=== PATIENT | male | born 1960 | race Two or more races ===

== ENCOUNTER → 2020-04-06 12:55 | Outpatient (BNV) | payer OTHER, MEDICAID, SELFPAY | PROVIDERS: PCP Nurse Practitioner Family; Visit Provider Internal Medicine Medical Oncology | DX: C15.5 Malignant neoplasm of lower third of esophagus (principal) | CPT/HCPCS: 99213; 99214 ==

== ENCOUNTER → 2020-04-12 13:00 | Outpatient (BNVA) | payer OTHER, SELFPAY | PROVIDERS: PCP Internal Medicine; Visit Provider Nurse Practitioner Gerontology | DX: E11.65 Type 2 diabetes mellitus with hyperglycemia (principal); E11.42 Type 2 diabetes mellitus with diabetic polyneuropathy; E78.5 Hyperlipidemia, unspecified; Z79.4 Long term (current) use of insulin; Z71.3 Dietary counseling and surveillance | CPT/HCPCS: 82947; 99214 ==

== ENCOUNTER → 2020-04-17 14:22 | Outpatient (BNVA) | payer OTHER, SELFPAY | PROVIDERS: PCP Internal Medicine; Visit Provider Urology | DX: Z76.89 Persons encountering health services in other specified circumstances (principal) | CPT/HCPCS: 99212 ==

== ENCOUNTER 2020-08-27 10:21 | Outpatient (REF) | payer OTHER, SELFPAY ==
[2020-08-27 11:06] LABS: Prothrombin Time 12.1 SEC (10.8-13.0)
[2020-08-27 11:08] LABS: Basophils Percent Auto 0.5 % (0-2); Eosinophils Absolute Auto 0.2 X10*3/uL (0.0-0.4); Eosinophils Percent Auto 4.8 % (0-4); Hematocrit 45.3 % (42-52); Hemoglobin 16.2 g/dl (14.0-18.0); Imm Gran Abs Auto 0.01 X10*3/uL (0.00-0.03); Imm Gran Pct Auto 0.3 % (0.0-0.4); Lymphocytes Absolute Auto 0.5 X10*3/uL (1.2-4.9); Lymphocytes Percent Auto 13.1 % (20-40); MANUAL DIFF FLAG SCAN; Mean Corpuscular HGB Conc 35.8 g/dl (31.0-36.0); Mean Corpuscular Hemoglobin 32.9 pg (27.0-33.0); Mean Corpuscular Volume 92.1 fL (80-98); Mean Platelet Volume 9.8 fL (9.4-12.4); Monocytes Absolute Auto 0.4 X10*3/uL (0.1-1.2); Monocytes Percent Auto 11.8 % (2-11); Neutrophils Absolute Auto 2.6 X10*3/uL (2.0-8.3); Neutrophils Percent Auto 69.5 % (45-73); Red Blood Count 4.92 X10*6/uL (4.60-5.80); Red Cell Distribution Width 14.7 % (11.0-16.0); SCAN SMEAR FLAG 1; White Blood Count 3.7 X10*3/uL (4.8-10.8)
[2020-08-27 11:16] LABS: Platelet Count 60 X10*3/uL (160-400)
[2020-08-27 11:22] LABS: Estimated Average Glucose 169 mg/dL; Hemoglobin A1c % 7.5 %
[2020-08-27 11:41] LABS: Creatinine Urine 37.65 mg/dL; Microalbum/Creatinine Ratio Ur 18.5 ug/mg cr
[2020-08-27 11:44] LABS: Alanine Aminotransferase 24 U/L (0-40); Albumin Level 3.7 g/dL (3.5-5.0); Alkaline Phosphatase 133 U/L (39-117); Aspartate Amino Transferase 33 U/L (5-37); Bilirubin Direct 0.7 mg/dL (0.0-0.5); Bilirubin Total 1.7 mg/dL (0.0-1.0); Total Protein 7.1 g/dL (6.5-8.0)
[2020-08-27 11:51] LABS: SLIDE REVIEW VERIFIED
[2020-08-27 12:12] LABS: Anion Gap 10 (12-20); Blood Urea Nitrogen 13 mg/dL (9-16); Carbon Dioxide 26 mmol/L (22-29); Chloride 109 mmol/L (96-108); Cholesterol 160 mg/dL; Estimated Glomerular Filt Rate > 60; Glucose Fasting 281 mg/dL (60-99); HDL Cholesterol 59 mg/dL; LDL Cholesterol Calculated 81 mg/dl; Potassium 4.3 mmol/L (3.3-5.1); Sodium 141 mmol/L (135-145); Triglycerides 103 mg/dL
[2020-08-28 05:12] LABS: LDL Cholesterol Direct 71 mg/dL (<100)
[2020-08-29 14:11] LABS: HCV Log PCR <1.18 NOT DETECTED Log IU/mL (NOT DETECTED); HepC Viral Load <15 NOT DETECTED IU/mL (NOT DETECTED)
== END 2020-08-27 10:22 | disposition home or self-care (01) ==
LOC: HO.LAB 10:21
PROVIDERS: Absent Provider Internal Medicine Gastroenterology; PCP Nurse Practitioner Family; Visit Provider Nurse Practitioner Gerontology
DX: E11.65 Type 2 diabetes mellitus with hyperglycemia (principal); K74.69 Other cirrhosis of liver
CPT/HCPCS: 36415; 80048; 80061; 80076; 82043; 83036; 83721; 85025; 85610; 87522

== ENCOUNTER 2020-09-04 09:18 | Outpatient (REF) | payer OTHER, SELFPAY ==
--- NOTE | ~2020-09-04 | US_ITS ---
EXAMINATION: US ABDOMEN COMPLETE CLINICAL INFORMATION: Cirrhosis of liver. COMPARISON: CT abdomen 11/25/2019. Ultrasound abdomen 04/12/2018 and 05/13/2017. TECHNIQUE: Real-time imaging of the abdominal viscera. FINDINGS: PANCREAS: Not well visualized due to bowel gas. ABDOMINAL AORTA: The proximal, mid, and distal segments are normal in caliber. INFERIOR VENA CAVA: Visualized portions are normal. LIVER: Liver echotexture is increased and heterogeneous suggestive of hepatocellular disease. The contour of the liver is irregular suggestive of cirrhosis. The left lobe of the liver is difficult to visualize. No focal liver lesion or biliary duct dilatation is seen. Tips shunt is seen in the right lobe of the liver. GALLBLADDER: Normal. The gallbladder is physiologically distended without evidence of stones, sludge, polyps, wall thickening or pericholecystic fluid. COMMON BILE DUCT: Not well visualized RIGHT KIDNEY: Normal. No hydronephrosis. No renal calculi or focal parenchymal lesions. The kidney measures 11.4 cm in maximum dimension. LEFT KIDNEY: Normal. No hydronephrosis. No renal calculi or focal parenchymal lesions. The kidney measures 12.1 cm in maximum dimension. SPLEEN: The spleen is enlarged. The spleen measures 15.8 cm in maximum dimension. FREE FLUID: None. US/US abdomen complete IMPRESSION: Cirrhotic-appearing liver. No focal liver lesion seen. The left lobe of the liver is difficult to visualize. Splenomegaly. Nonvisualization of the pancreas and common bile duct.
== END 2020-09-04 09:19 | disposition home or self-care (01) ==
LOC: HO.US 09:18
PROVIDERS: PCP Nurse Practitioner Family; Visit Provider Internal Medicine Gastroenterology
DX: K74.69 Other cirrhosis of liver (principal)
CPT/HCPCS: 76700

== ENCOUNTER 2020-09-25 07:06 | Day surgery (SDC) | payer OTHER, SELFPAY ==
[2020-09-19 09:40] VITALS: BMI 30.7
--- NOTE | 2020-09-24 08:30 | HO.ANESPROP2 ---
Documented by User: Lauryn Wing 09/24/20 08:38 HPI - Anesthesia Eval Consult details Narrative: 59yo M for Upper Endoscopy ETOH cirrhosis - h/o ascites, varices, splenomegaly s/p TIPS 2019 PENDING SALE TO [facility] Active Problems Active Problems: All Active Problems (Updated 09/19/20 @ 09:39 by Darleen Robbins) Adenocarcinoma of lower esophagus (Acute) Phimosis (Acute) Erectile dysfunction associated with vasculopathy (Acute) Screening PSA (prostate specific antigen) (Acute) Seizures (Acute) Type 2 diabetes mellitus with hyperglycemia (Acute) Type 2 diabetes mellitus with diabetic polyneuropathy (Acute) Hyperlipidemia LDL goal <70 (Acute) Past Medical History Medical History Adenocarcinoma of lower esophagus Alcoholic cirrhosis Anemia Constipation Diabetes Elevated ferritin Esophageal varices Esophagus, carcinoma Hepatic cirrhosis Hepatitis C Hx of splenomegaly Hyperlipidemia LDL goal <70 Male circumcision Seizure disorder Stroke Thrombocytopenia Type 2 diabetes mellitus with diabetic polyneuropathy Type 2 diabetes mellitus with hyperglycemia Family History Family History Father No problems noted. Mother Diabetes mellitus Surgical History Surgical History Hx of circumcision Hx of colonoscopy Hx of endoscopy Social History Social History Household Members: Spouse Alcohol intake: never Smoking Status: Former smoker Use of substances other than those prescribed or required for medical reasons: No Advance Directives: No Advance Directives Information Provided: Yes Meds Allergies Allergy/AdvReac Type Severity Reaction Status Date / Time No Known Allergies Allergy Verified 09/25/20 07:59 Home Medications Medication Instructions Recorded Confirmed Last Taken Type cholecalciferol (vitamin D3) 25 mcg PO DAILY 04/06/20 09/19/20 Unknown History [Vitamin D3] docusate sodium 1 cap PO DAILY 04/06/20 09/19/20 Unknown History lactulose 15 ml PO TID 04/06/20 09/19/20 Unknown History lancets 33 gauge #100 ea 08/15/20 08/15/20 Unknown History pen needle, diabetic 31 gauge x #1200 ea 08/15/20 08/15/20 Unknown History 11/04 Exam Exam Date and Time: September 24, 2020 0830 Height,Weight and Vital Signs: Height 5 ft 7 in Weight 89 kg Pertinent Lab Results Pertinent Lab Results: Laboratory Tests 08/27/20 08/27/20 08/27/20 10:32 10:32 10:32 WBC 3.7 L Hgb 16.2 Hct 45.3 Plt Count 60 L D PT INR Sodium 141 Potassium 4.3 Chloride 109 H Carbon Dioxide 26 BUN 13 Creatinine 0.96 Hemoglobin A1c % 7.5 Total Bilirubin Direct Bilirubin AST ALT Alkaline Phosphatase Total Protein Albumin 08/27/20 08/27/20 10:32 10:32 WBC Hgb Hct Plt Count PT 12.1 INR 1.0 Sodium Potassium Chloride Carbon Dioxide BUN Creatinine Hemoglobin A1c % Total Bilirubin 1.7 H Direct Bilirubin 0.7 H AST 33 ALT 24 Alkaline Phosphatase 133 H Total Protein 7.1 Albumin 3.7 Narrative Narrative: US abdomen complete 08/2020 IMPRESSION: Cirrhotic-appearing liver. No focal liver lesion seen. The left lobe of the liver is difficult to visualize. Splenomegaly. Nonvisualization of the pancreas and common bile duct. Assessment and Plan Assessment Anesthesia Assessment: Chart Reviewed Documented by User: Zully Zaidi 09/25/20 08:59 PMFSH Past Medical History Medical History Adenocarcinoma of lower esophagus Alcoholic cirrhosis Anemia Constipation Diabetes Elevated ferritin Esophageal varices Esophagus, carcinoma Hepatic cirrhosis Hepatitis C Hx of splenomegaly Hyperlipidemia LDL goal <70 Male circumcision Seizure disorder Stroke Thrombocytopenia Type 2 diabetes mellitus with diabetic polyneuropathy Type 2 diabetes mellitus with hyperglycemia Family History Family History Father No problems noted. Mother Diabetes mellitus Surgical History Surgical History Hx of circumcision Hx of colonoscopy Hx of endoscopy Social History Social History Household Members: Spouse Alcohol intake: never Smoking Status: Former smoker Use of substances other than those prescribed or required for medical reasons: No Advance Directives: No Advance Directives Information Provided: Yes Meds Allergies Allergy/AdvReac Type Severity Reaction Status Date / Time No Known Allergies Allergy Verified 09/25/20 07:59 Home Medications Medication Instructions Recorded Confirmed Last Taken Type cholecalciferol (vitamin D3) 25 mcg PO DAILY 04/06/20 09/19/20 Unknown History [Vitamin D3] docusate sodium 1 cap PO DAILY 04/06/20 09/19/20 Unknown History lactulose 15 ml PO TID 04/06/20 09/19/20 Unknown History lancets 33 gauge #100 ea 08/15/20 08/15/20 Unknown History pen needle, diabetic 31 gauge x #1200 ea 08/15/20 08/15/20 Unknown History 11/04 Exam Airway Mallampati Class: II TM Dist: >3cm Neck ROM: Full Loose/Missing/Broken Teeth: No Heart: RRR Lungs: CTA Assessment and Plan Assessment Anesthesia Assessment: Anesthesia Plan Discussed and Chart Reviewed Final Anesthetic Review NPO: Yes ASA Class: III Final Preanesthetic Review: Meds/Allgs Chart Reviewed, Consent Obtained/Reviewed and Anes Risks/Benef Reviewed Patient Risk: Intermediate Procedure Risk: Intermediate Anesthetic Plan Anesthetic Plan: MAC: Disposition: Standard PACU
[2020-09-25 07:48] LABS: Glucose, Whole Blood 155 mg/dL (60-115)
[2020-09-25 08:02] VITALS: BP 118/79; PULSE 74; RESP 16; TEMP 36.5; O2SAT 99
[2020-09-25] MEDS: Lactated Ringers 1,000 ML 50 ML IV (08:21)
--- NOTE | 2020-09-25 08:57 | MHC.SHP ---
Pre-Procedural Eval Section A The patient is an INPATIENT: No Changes since office visit: No Cold of Flu in the past 2 weeks, No New Medical Problems, No Changes in Medication and No Patient answered all questions The History & Physical has been completed within 30 days and I have reviewed it.: Yes Section B Chief Complaint: malignant neoplasm of esophagus Allergies: Allergies Allergy/AdvReac Type Severity Reaction Status Date / Time No Known Allergies Allergy Verified 09/25/20 07:59 Plan I have reviewed the history and physical and performed a pertinent physical examination on my patient. No changes have occurred unless specified.
--- NOTE | 2020-09-25 09:23 | PM.OP ---
Brief Operative Note Date of Service: 09/25/20 Pre-op diagnosis: adenoca esophagus Post-op diagnosis: same Procedure: egd Surgeon: Benjamin Suggs Anesthesia: MAC Estimated blood loss (mL): 20 Pathology: other (egj biopsies, gastric polyps) Condition: stable Disposition: PACU
[2020-09-25 09:30] VITALS: BP 105/66; PULSE 77; RESP 18; TEMP 36.1; O2SAT 94
[2020-09-25 09:45] VITALS: BP 104/69; PULSE 76; RESP 18; TEMP 36.4; O2SAT 95
--- NOTE | 2020-09-25 10:40 | OP_ITS ---
SURGEON: Benjamin Suggs MD INDICATIONS: Adenocarcinoma of the EG junction. PREOPERATIVE DIAGNOSIS: POSTOPERATIVE DIAGNOSIS: PROCEDURE PERFORMED: Upper endoscopy with biopsy. ESTIMATED BLOOD LOSS: COMPLICATIONS: ANESTHESIA: ASSISTANTS: SPECIMENS: MEDICATIONS: Monitored anesthesia care. DESCRIPTION OF PROCEDURE: History and physical performed. The risks and benefits of the procedure were explained to the patient. Informed consent was obtained. The patient was placed in left lateral decubitus position. The Olympus video gastroscope was introduced into the esophagus, stomach, and duodenum. Examination was performed and the scope was removed. He tolerated the procedure well and was taken to recovery area in stable condition. FINDINGS: Esophagus: The esophagus showed changes consistent with his prior radiation therapy. There was a nodular area just below the EG junction with some inflammatory change. This was biopsied. There were no visible esophageal varices or gastric varices. Stomach: The stomach showed no evidence of masses or ulcers. The previously identified gastric polyps were present. They appeared unchanged from his prior examination. Biopsies were obtained from the gastric polyps. Duodenum: The bulb and second portion were normal. IMPRESSION: 1. Adenocarcinoma of the EG junction, status post biopsy. 2. Gastric polyps. RECOMMENDATION: Follow up the biopsy results. MD GUY Tejada/JUAN CARLOS / [id number]
== END 2020-09-25 10:10 | disposition home or self-care (01) ==
PROVIDERS: PCP Nurse Practitioner Family; Visit Provider Internal Medicine Gastroenterology
PROC: 0DJ08ZZ Inspection of Upper Intestinal Tract, Via Natural or Artificial Opening Endoscopic (ICD-10-PCS; CPT 43235; principal; 2020-09-25 08:20)
DX: C16.0 Malignant neoplasm of cardia (principal); K31.7 Polyp of stomach and duodenum; Z92.21 Personal history of antineoplastic chemotherapy; Z92.3 Personal history of irradiation; Z87.891 Personal history of nicotine dependence; B19.20 Unspecified viral hepatitis C without hepatic coma; K74.69 Other cirrhosis of liver; G40.802 Other epilepsy, not intractable, without status epilepticus; E11.42 Type 2 diabetes mellitus with diabetic polyneuropathy; E11.65 Type 2 diabetes mellitus with hyperglycemia; Z79.4 Long term (current) use of insulin; Z79.899 Other long term (current) drug therapy; Z86.73 Personal history of transient ischemic attack (TIA), and cerebral infarction without residual deficits
CPT/HCPCS: 43239; 82947; 88305; 88341; 88342

== ENCOUNTER → 2020-10-22 12:53 | Outpatient (BNVA) | payer OTHER, SELFPAY | PROVIDERS: PCP Nurse Practitioner Family; Visit Provider Nurse Practitioner Gerontology | DX: E11.65 Type 2 diabetes mellitus with hyperglycemia (principal); E11.42 Type 2 diabetes mellitus with diabetic polyneuropathy; E78.5 Hyperlipidemia, unspecified; Z68.29 Body mass index [BMI] 29.0-29.9, adult; Z79.4 Long term (current) use of insulin; Z71.3 Dietary counseling and surveillance | CPT/HCPCS: 82947; 99212 ==

== ENCOUNTER → 2021-01-21 11:19 | Outpatient (BNVA) | payer OTHER, SELFPAY | PROVIDERS: PCP Nurse Practitioner Family; Visit Provider Nurse Practitioner Gerontology | DX: E11.65 Type 2 diabetes mellitus with hyperglycemia (principal); E11.42 Type 2 diabetes mellitus with diabetic polyneuropathy; E78.5 Hyperlipidemia, unspecified; I73.9 Peripheral vascular disease, unspecified; Z87.891 Personal history of nicotine dependence; Z86.73 Personal history of transient ischemic attack (TIA), and cerebral infarction without residual deficits; Z79.4 Long term (current) use of insulin; Z79.899 Other long term (current) drug therapy | CPT/HCPCS: 82947; 99212 ==

== ENCOUNTER 2021-02-06 16:16 | Outpatient (REF) | payer OTHER, SELFPAY ==
--- NOTE | ~2021-02-06 | XR_ITS ---
EXAMINATION: XR KNEE, LEFT CLINICAL INFORMATION: Pain COMPARISON: None TECHNIQUE: Four views of the left knee. FINDINGS: No acute fracture or dislocation. Mild degenerative changes. No significant effusion is seen. XR/XR knee LT 4V IMPRESSION: No acute finding.
== END 2021-02-06 16:17 | disposition home or self-care (01) ==
LOC: HO.HMGCX 16:16
PROVIDERS: PCP Nurse Practitioner Family; Visit Provider Nurse Practitioner Family
DX: M25.562 Pain in left knee (principal)
CPT/HCPCS: 73564

== ENCOUNTER 2021-02-08 09:59 | Outpatient (REF) | payer OTHER, SELFPAY ==
[2021-02-08 10:48] LABS: MANUAL DIFF FLAG NO
[2021-02-08 10:54] LABS: Basophils Percent Auto 1.1 % (0-2); Eosinophils Absolute Auto 0.2 X10*3/uL (0.0-0.4); Eosinophils Percent Auto 3.9 % (0-4); Hematocrit 42.1 % (42-52); Hemoglobin 14.9 g/dl (14.0-18.0); Imm Gran Abs Auto 0.01 X10*3/uL (0.00-0.03); Imm Gran Pct Auto 0.3 % (0.0-0.4); Lymphocytes Absolute Auto 0.8 X10*3/uL (1.2-4.9); Lymphocytes Percent Auto 20.3 % (20-40); Mean Corpuscular HGB Conc 35.4 g/dl (31.0-36.0); Mean Corpuscular Hemoglobin 32.3 pg (27.0-33.0); Mean Corpuscular Volume 91.3 fL (80-98); Mean Platelet Volume 10.4 fL (9.4-12.4); Monocytes Absolute Auto 0.3 X10*3/uL (0.1-1.2); Monocytes Percent Auto 8.7 % (2-11); Neutrophils Absolute Auto 2.5 X10*3/uL (2.0-8.3); Neutrophils Percent Auto 65.7 % (45-73); Red Blood Count 4.61 X10*6/uL (4.60-5.80); Red Cell Distribution Width 15.2 % (11.0-16.0); White Blood Count 3.8 X10*3/uL (4.8-10.8)
[2021-02-08 10:55] LABS: Platelet Count 56 X10*3/uL (160-400)
== END 2021-02-08 10:00 | disposition home or self-care (01) ==
LOC: HO.LAB 09:59
PROVIDERS: PCP Nurse Practitioner Family; Visit Provider Internal Medicine Gastroenterology
DX: K74.60 Unspecified cirrhosis of liver (principal)
CPT/HCPCS: 36415; 85025

== ENCOUNTER 2021-02-12 09:51 | Day surgery (SDC) | payer OTHER, SELFPAY ==
--- NOTE | 2021-02-11 09:33 | P.CONAN_ITS ---
Documented by User: Lauryn Wing NP 02/11/21 09:36 HPI - Anesthesia Eval Consult details Narrative: 60yo M for Upper Endoscopy Last EGD with MAC 09/2020 PLT=56 on 02/08/21 ETOH cirrhosis - h/o ascites, varices, splenomegaly s/p TIPS 2019 PMFSH Active Problems Active Problems: All Active Problems (Updated 02/06/21 @ 17:06 by Nikhil Gray, [facility]) HTN (hypertension) (Acute) Left knee pain (Acute) Adenocarcinoma of lower esophagus (Acute) Phimosis (Acute) Erectile dysfunction associated with vasculopathy (Acute) Screening PSA (prostate specific antigen) (Acute) Seizures (Acute) Type 2 diabetes mellitus with hyperglycemia (Acute) Type 2 diabetes mellitus with diabetic polyneuropathy (Acute) Hyperlipidemia LDL goal <70 (Acute) Past Medical History Medical History (Updated 02/12/21 @ 10:47 by Annika Guevara MD) Adenocarcinoma of lower esophagus Alcoholic cirrhosis Anemia Constipation Diabetes Elevated ferritin Esophageal varices Esophagus, carcinoma Hepatic cirrhosis Hepatitis C Hx of splenomegaly Hyperlipidemia LDL goal <70 Male circumcision Seizure disorder Stroke Thrombocytopenia Type 2 diabetes mellitus with diabetic polyneuropathy Type 2 diabetes mellitus with hyperglycemia Family History Family History Father No problems noted. Mother Diabetes mellitus Surgical History Surgical History Hx of circumcision Hx of colonoscopy Hx of endoscopy Social History Social History Household Members: Spouse Household Members Other:: Spouse: Antoni Alcohol intake: never Patient Tobacco Use Status: Former Tobacco user Quit Date: 1979 Tobacco use type: Cigarette Years Smoked: 10 Smoked in Last 30 Days: No e-Cigarette/Vaping Use: Never Used Second Hand Smoke Exposure: No Use of substances other than those prescribed or required for medical reasons: No Are you DNR?: No Advance Directives: No Advance Directives Information Provided: Yes service: No Current occupational status: disabled Meds Allergies Allergy/AdvReac Type Severity Reaction Status Date / Time No Known Allergies Allergy Verified 02/12/21 10:09 Home Medications Medication Instructions Recorded Confirmed Last Taken Type cholecalciferol (vitamin D3) 25 25 mcg PO DAILY 04/06/20 02/06/21 Unknown History mcg (1,000 unit) tablet (Vitamin D3) docusate sodium 100 mg capsule 1 cap PO DAILY 04/06/20 02/06/21 Unknown History lactulose 10 gram/15 mL oral 15 ml PO TID 04/06/20 02/06/21 Unknown History solution lancets 33 gauge #100 ea 08/15/20 01/21/21 Unknown History pen needle, diabetic 31 gauge x #1200 ea 08/15/20 01/21/21 Unknown History 11/04 Exam Exam Date and Time: February 11, [id number] Pertinent Lab Results Pertinent Lab Results: Laboratory Tests 01/07/21 02/08/21 15:29 10:17 WBC 3.8 L Hgb 14.9 Hct 42.1 Plt Count 56 L Sodium 140 Potassium 4.2 Chloride 108 Carbon Dioxide 24 BUN 14 Creatinine 1.04 Assessment and Plan Assessment Anesthesia Assessment: Chart Reviewed Documented by User: Annika Guevara MD 02/12/21 10:48 PMFSH Past Medical History Medical History (Updated 02/12/21 @ 10:47 by Annika Guevara MD) Adenocarcinoma of lower esophagus Alcoholic cirrhosis Anemia Constipation Diabetes Elevated ferritin Esophageal varices Esophagus, carcinoma Hepatic cirrhosis Hepatitis C Hx of splenomegaly Hyperlipidemia LDL goal <70 Male circumcision Seizure disorder Stroke Thrombocytopenia Type 2 diabetes mellitus with diabetic polyneuropathy Type 2 diabetes mellitus with hyperglycemia Family History Family History Father No problems noted. Mother Diabetes mellitus Family history of problems with anesthesia: No Surgical History Surgical History Hx of circumcision Hx of colonoscopy Hx of endoscopy History of Problems with Anesthesia: No Social History Social History Household Members: Spouse Household Members Other:: Spouse: Antoni Alcohol intake: never Patient Tobacco Use Status: Former Tobacco user Quit Date: 1979 Tobacco use type: Cigarette Years Smoked: 10 Smoked in Last 30 Days: No e-Cigarette/Vaping Use: Never Used Second Hand Smoke Exposure: No Use of substances other than those prescribed or required for medical reasons: No Are you DNR?: No Advance Directives: No Advance Directives Information Provided: Yes service: No Current occupational status: disabled Meds Allergies Allergy/AdvReac Type Severity Reaction Status Date / Time No Known Allergies Allergy Verified 02/12/21 10:09 Home Medications Medication Instructions Recorded Confirmed Last Taken Type cholecalciferol (vitamin D3) 25 25 mcg PO DAILY 04/06/20 02/06/21 Unknown History mcg (1,000 unit) tablet (Vitamin D3) docusate sodium 100 mg capsule 1 cap PO DAILY 04/06/20 02/06/21 Unknown History lactulose 10 gram/15 mL oral 15 ml PO TID 04/06/20 02/06/21 Unknown History solution lancets 33 gauge #100 ea 08/15/20 01/21/21 Unknown History pen needle, diabetic 31 gauge x #1200 ea 08/15/20 01/21/21 Unknown History 11/04 Exam Height,Weight and Vital Signs: Height 5 ft 7 in Weight 87.09 kg Vital Signs Temp Pulse Resp BP Pulse Ox 02/12/21 10:15 98.2 F 71 16 133/78 98 Pertinent Lab Results Pertinent Lab Results: Laboratory Tests 01/07/21 02/08/21 15:29 10:17 WBC 3.8 L Hgb 14.9 Hct 42.1 Plt Count 56 L Sodium 140 Potassium 4.2 Chloride 108 Carbon Dioxide 24 BUN 14 Creatinine 1.04 Lab Results 02/12/21 Range/Units 10:21 POC Glucose 172 H (60-115) mg/dL Airway Mallampati Class: II TM Dist: >3cm Neck ROM: Full Loose/Missing/Broken Teeth: Yes (Some extractions- front left, side) Heart: RRR Lungs: CTAB Assessment and Plan Final Anesthetic Review Family History of Problems with Anesthesia: No History of Problems with Anesthesia: No NPO: Yes ASA Class: III Final Preanesthetic Review: No Changes in Pt Med Stat, Meds/Allgs Chart Reviewed, Consent Obtained/Reviewed and Anes Risks/Benef Reviewed Patient Risk: Intermediate Procedure Risk: Low Assessment/Block/Sedation in SS: Assess/Block/Sedation-SS Anesthetic Plan Anesthetic Plan: MAC: Disposition: Standard PACU
[2021-02-12 10:15] VITALS: BP 133/78; PULSE 71; RESP 16; TEMP 36.8; O2SAT 98
[2021-02-12 10:25] LABS: Glucose, Whole Blood 172 mg/dL (60-115)
[2021-02-12] MEDS: Lactated Ringers 1,000 ML 100 ML IVCONT (10:30)
--- NOTE | 2021-02-12 11:23 | MHC.SHP ---
Pre-Procedural Eval Section A Date of Service: 02/12/21 The patient is an INPATIENT: No Changes since office visit: No Cold of Flu in the past 2 weeks, No New Medical Problems, No Changes in Medication and No Patient answered all questions The History & Physical has been completed within 30 days and I have reviewed it.: Yes Section B Chief Complaint: Esophageal Cancer Allergies: Allergies Allergy/AdvReac Type Severity Reaction Status Date / Time No Known Allergies Allergy Verified 02/12/21 10:09 Plan I have reviewed the history and physical and performed a pertinent physical examination on my patient. No changes have occurred unless specified.
[2021-02-12 11:52] VITALS: BP 103/66; PULSE 78; RESP 16; TEMP 36.1; O2SAT 95
--- NOTE | 2021-02-12 11:55 | P.BOP_ITS ---
Brief Operative Note Date of Service: 02/12/21 Pre-op diagnosis: adenoca eg junction Post-op diagnosis: same Procedure: EGD Surgeon: Benjamin Suggs Anesthesia: MAC Was an [employer] Principal used for this Procedure?: No Estimated blood loss (mL): 0 Pathology: none sent Condition: stable Disposition: PACU
[2021-02-12 12:07] VITALS: BP 110/74; PULSE 78; RESP 18; TEMP 36.2; O2SAT 97
--- NOTE | 2021-02-12 18:40 | OP_ITS ---
SURGEON: Benjamin Suggs MD INDICATIONS: History of adenocarcinoma of the EG junction. PREOPERATIVE DIAGNOSIS: POSTOPERATIVE DIAGNOSIS: PROCEDURE PERFORMED: Upper endoscopy. ESTIMATED BLOOD LOSS: COMPLICATIONS: ANESTHESIA: ASSISTANTS: SPECIMENS: MEDICATIONS: Monitored anesthesia care. DESCRIPTION OF PROCEDURE: History and physical performed. The risks and benefits of the procedure were explained to the patient. Informed consent was obtained. The patient was placed in a left lateral decubitus position. The Olympus video gastroscope was introduced into the esophagus, stomach, and duodenum. Examination was performed and the scope was removed. He tolerated the procedure well and was returned to recovery area in stable condition. FINDINGS: Esophagus: The esophagus showed radiation changes over the distal 2/3 consistent with the patient's prior history of esophageal radiation. There was no evidence of recurrent tumor. The EG junction was slightly irregular. No varices were definitely identified. No biopsies were obtained due to the patient's prior history of varices, absence of any obvious tumor, and history of thrombocytopenia. Stomach: The stomach showed previously noted gastric polyps, which had been biopsied. There was no portal hypertensive gastropathy and no definite gastric varices identified. Duodenum: The bulb and second portion were normal. IMPRESSION: No evidence of recurrent adenocarcinoma at the EG junction. RECOMMENDATION: Followup endoscopy to be considered in approximately 6 months. MD GUY Tejada/TOYINL / [id number]
== END 2021-02-12 12:33 | disposition home or self-care (01) ==
PROVIDERS: PCP Nurse Practitioner Family; Visit Provider Internal Medicine Gastroenterology
PROC: 0DJ08ZZ Inspection of Upper Intestinal Tract, Via Natural or Artificial Opening Endoscopic (ICD-10-PCS; CPT 43235; principal; 2021-02-12 11:20)
DX: C15.9 Malignant neoplasm of esophagus, unspecified (principal); Z92.3 Personal history of irradiation; Z98.890 Other specified postprocedural states; Z85.01 Personal history of malignant neoplasm of esophagus; K31.7 Polyp of stomach and duodenum; K74.60 Unspecified cirrhosis of liver; E11.9 Type 2 diabetes mellitus without complications; D69.6 Thrombocytopenia, unspecified; Z87.19 Personal history of other diseases of the digestive system; Z95.828 Presence of other vascular implants and grafts; Z86.73 Personal history of transient ischemic attack (TIA), and cerebral infarction without residual deficits; Z87.891 Personal history of nicotine dependence; Z79.4 Long term (current) use of insulin; Z79.899 Other long term (current) drug therapy
CPT/HCPCS: 43235; 82947; J3010

== ENCOUNTER 2021-02-14 08:07 | Outpatient (REF) | payer OTHER, SELFPAY ==
--- NOTE | ~2021-02-14 | US_ITS ---
EXAMINATION: US ABDOMEN COMPLETE CLINICAL INFORMATION: Cirrhosis, status post TIPS. COMPARISON: Ultrasound abdomen complete 09/04/2020 and 04/12/2018. CT abdomen 11/25/2019. TECHNIQUE: Real-time imaging of the abdominal viscera. FINDINGS: PANCREAS: Obscured by overlying bowel gas. ABDOMINAL AORTA: The proximal, mid, and distal segments are normal in caliber. INFERIOR VENA CAVA: Visualized portions are normal. LIVER: The liver is normal in size. The liver contour is normal. There is mildly increased echogenicity present consistent with fatty infiltration. No focal hepatic lesion. There is no intrahepatic biliary duct dilatation seen. TIPS is seen in place and appears patent. GALLBLADDER: Normal. The gallbladder is physiologically distended without evidence of stones, sludge, polyps, wall thickening or pericholecystic fluid. COMMON BILE DUCT: Normal in caliber measuring 0.2 cm in diameter. RIGHT KIDNEY: Normal. No hydronephrosis. No renal calculi or focal parenchymal lesions. The kidney measures 11.3 cm in maximum dimension. LEFT KIDNEY: Normal. No hydronephrosis. No renal calculi or focal parenchymal lesions. The kidney measures 12.2 cm in maximum dimension. SPLEEN: Splenomegaly is present. The spleen measures 16.3 cm in maximum dimension. FREE FLUID: None. US/US abdomen complete IMPRESSION: Fatty infiltration of the liver. Patent TIPS. Splenomegaly.
== END 2021-02-14 08:08 | disposition home or self-care (01) ==
LOC: HO.US 08:07
PROVIDERS: PCP Nurse Practitioner Family; Visit Provider Internal Medicine Gastroenterology
DX: Z95.828 Presence of other vascular implants and grafts (principal)
CPT/HCPCS: 76700

== ENCOUNTER → 2021-06-07 12:11 | Outpatient (BNVA) | payer OTHER, SELFPAY | PROVIDERS: PCP Nurse Practitioner Family; Visit Provider Nurse Practitioner Gerontology | DX: E11.65 Type 2 diabetes mellitus with hyperglycemia (principal); E11.42 Type 2 diabetes mellitus with diabetic polyneuropathy; E78.5 Hyperlipidemia, unspecified | CPT/HCPCS: 82947; 83036; 99212 ==

== ENCOUNTER → 2021-06-25 14:47 | Outpatient (BNVA) | payer OTHER, SELFPAY | PROVIDERS: PCP Nurse Practitioner Family; Visit Provider Urology | DX: E11.69 Type 2 diabetes mellitus with other specified complication (principal); N52.1 Erectile dysfunction due to diseases classified elsewhere; Z13.9 Encounter for screening, unspecified | CPT/HCPCS: 81002; 99212 ==

== ENCOUNTER → 2021-08-09 09:12 | Outpatient (REF) | payer OTHER, SELFPAY ==
--- NOTE | 2021-08-09 09:15 | CA_ITS ---
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 The visually estimated ejection fraction is between 60-65%. Diastolic function is normal for age. Right Ventricle Normal right ventricular cavity size and systolic function. Atria Both atria are normal in size. There is no evidence of interatrial shunt. Aortic Valve There is mild thickening of the aortic valve. There is no aortic valve stenosis. There is no aortic valve regurgitation. Mitral Valve Normal mitral valve structure and function. There is trace mitral valve regurgitation. There is no mitral valve stenosis. Pulmonic Valve The pulmonic valve is likely normal. Tricuspid Valve Normal tricuspid valve structure. There is trace tricuspid valve regurgitation. Tricuspid regurgitation envelope is inadequate for calculation of right ventricular systolic pressure. Great Vessels All visible segments of the aorta are normal in size. The pulmonary artery was not well visualized. Venous The inferior vena cava is normal in size and collapses greater than 50% with inspiration. Pericardium/Pleural There is no evidence of pericardial effusion. Prior Study Comparison No prior study available for comparison. Measurements 2D Linear Measurements IVSd: 0.74 0.6-0.9/0.6-1.0 cm LVIDd: 4.74 3.9-5.3/4.2-5.9 cm LVIDd Index: 2.39 2.4-3.2/2.2-3.1 cm/m2 LVIDs: 2.99 2.0-3.6 cm LVPWd: 0.79 0.7-1.1 cm Ao Root: 3.00 2.1-3.5 cm LA Diam: 4.00 2.7-3.8/3.0-4.0 cm LAIDs Index: 2.02 1.5-2.3 cm/m2 LV Mass: 145.10 67-162/88-224 g LV Mass Index: 73.29 43-95/49-115 g/m2 LVOT Diam: 2.00 3.0+(-)1.3 cm Mitral Valve MV Pk E: 0.84 MV PK A: 0.64 MV Decel Time: 211.00 E/A: 1.30 E'Lateral: 10.20 E'Medial: 7.83 E/E' Med: 10.70 E/E' Lat: 8.20 PHT: 62.00 MVA PHT: 3.55 Decel [place]: 3.98 Aortic Valve AoV Pk Ron: 1.54 AoV Mn Ron: 1.02 AoV VTI: 0.30 AoV Pk Grad: 9.00 Aov Mn Grad: 5.00 MATT Cont.VTI: 2.20 LVOT LVOT Pk Orn: 0.95 LVOT Mn Ron: 0.60 LVOT VTI: 0.21 LVOT Pk Grad: 4.00 LVOT Mn Grad: 2.00 LVOT Diam: 2.00 LVOT Area: 3.14 Diastolic Function MV Pk E: 0.84 MV Pk A: 0.64 E/A: 1.30 E'Medial: 7.83 E/E' Med: 10.70 E' Laterial: 10.20 E/E' Lat: 8.20 Great Vessels Aorta Ao Root-2D: 3.00 2.0-3.7 cm Ao Asc: 2.90 2.1-3.4 cm Pulmonary Valve PV Pk Ron: 1.61 Peak PV Grad: 10.00 Updated in Other Vendor System with Status of Final Leonard Malik MD electronically signed on 08/10/2021 12:12:37 PM with status of Final
== END ==
LOC: HO.CARD 09:12
PROVIDERS: PCP Nurse Practitioner Family; Visit Provider Nurse Practitioner Family
DX: R01.1 Cardiac murmur, unspecified (principal)
CPT/HCPCS: 93306

== ENCOUNTER 2021-09-10 08:23 | Outpatient (REF) | payer OTHER, SELFPAY ==
--- NOTE | ~2021-09-10 | US_ITS ---
EXAMINATION: US ABDOMEN COMPLETE CLINICAL INFORMATION: Cirrhosis of liver. COMPARISON: Ultrasound abdomen complete 02/14/2021 and 09/04/2020. CT chest and abdomen with contrast 11/25/2019. TECHNIQUE: Real-time imaging of the abdominal viscera. FINDINGS: PANCREAS: Not well visualized due to bowel gas ABDOMINAL AORTA: The midabdominal aorta is not well visualized due to bowel gas. The proximal and distal abdominal aorta are normal in caliber. INFERIOR VENA CAVA: Visualized portions are normal. LIVER: Liver echotexture is very heterogeneous. The contour of the liver is irregular or scalloped suggestive of cirrhosis. No focal liver lesion is seen. There is a TIPS shunt seen that is patent with appropriate hepatopedal flow. No focal liver lesion or biliary duct dilatation. GALLBLADDER: The gallbladder is normal in size. The gallbladder wall is minimally thickened measuring up to 4 mm. This may be related to liver disease. No gallstones are seen. COMMON BILE DUCT: Normal in caliber measuring 0.2 cm in diameter. RIGHT KIDNEY: Normal. No hydronephrosis. No renal calculi or focal parenchymal lesions. The kidney measures 12.0 cm in maximum dimension. LEFT KIDNEY: Normal. No hydronephrosis. No renal calculi or focal parenchymal lesions. The kidney measures 11.7 cm in maximum dimension. SPLEEN: The spleen is enlarged. The spleen measures 17.2 cm in maximum dimension. FREE FLUID: None. US/US abdomen complete IMPRESSION: Cirrhotic-appearing liver. Patent TIPS shunt with appropriate hepatopedal flow. Splenomegaly. No ascites.
[2021-09-10 11:33] LABS: MANUAL DIFF FLAG NO
[2021-09-10 11:39] LABS: Basophils Percent Auto 0.8 % (0-2); Eosinophils Absolute Auto 0.1 X10*3/uL (0.0-0.4); Eosinophils Percent Auto 2.9 % (0-4); Hematocrit 36.5 % (42.0-52.0); Hemoglobin 10.1 g/dl (14.0-18.0); Imm Gran Abs Auto 0.01 X10*3/uL (0.00-0.03); Imm Gran Pct Auto 0.3 % (0.0-0.4); Lymphocytes Absolute Auto 0.7 X10*3/uL (1.2-4.9); Lymphocytes Percent Auto 17.2 % (20-40); Mean Corpuscular HGB Conc 27.7 g/dl (31.0-36.0); Mean Corpuscular Hemoglobin 19.3 pg (27.0-33.0); Mean Corpuscular Volume 69.8 fL (80.0-98.0); Monocytes Absolute Auto 0.4 X10*3/uL (0.1-1.2); Monocytes Percent Auto 9.6 % (2-11); Neutrophils Absolute Auto 2.7 x10*3/uL (2.0-8.3); Neutrophils Percent Auto 69.2 % (45-73); Platelet Count 78 X10*3/uL (160-400); Red Blood Count 5.23 X10*6/uL (4.60-5.80); Red Cell Distribution Width 22.8 % (11.0-16.0); White Blood Count 3.8 X10*3/uL (4.8-10.8)
[2021-09-10 11:45] LABS: INTERNATIONAL NORM RATIO 1.1 (0.9-1.1); Prothrombin Time 12.2 SEC (9.9-13.0)
[2021-09-10 11:58] LABS: Alanine Aminotransferase 20 U/L (0-40); Albumin Level 3.5 g/dL (3.5-5.0); Alkaline Phosphatase 102 U/L (39-117); Aspartate Amino Transferase 26 U/L (5-37); Bilirubin Direct 0.4 mg/dL (0.0-0.5); Bilirubin Total 1.1 mg/dL (0.0-1.0); Iron 31 mcg/dL (45-160); Total Protein 6.9 g/dL (6.5-8.0)
[2021-09-10 12:04] LABS: Alanine Aminotransferase 19 U/L (0-40); Albumin Level 3.5 g/dL (3.5-5.0); Alkaline Phosphatase 101 U/L (39-117); Anion Gap 11 (12-20); Aspartate Amino Transferase 26 U/L (5-37); Blood Urea Nitrogen 11 mg/dL (9-16); Carbon Dioxide 24 mmol/L (22-29); Chloride 111 mmol/L (96-108); Cholesterol 129 mg/dL; Estimated Glomerular Filt Rate > 60; Glucose Fasting 155 mg/dL (60-99); HDL Cholesterol 49 mg/dL; LDL Cholesterol Calculated 69 mg/dl; Potassium 4.2 mmol/L (3.3-5.1); Sodium 142 mmol/L (135-145); Total Protein 6.8 g/dL (6.5-8.0); Triglycerides 57 mg/dL
[2021-09-10 12:16] LABS: Ferritin 7 ng/mL (20-250)
[2021-09-10 12:19] LABS: Percent Iron Saturation 7 % (15-50); Total Iron Binding Capacity 418 mcg/dL (228-428); Unsaturated Iron Binding 387 ug/dL
[2021-09-11 12:11] LABS: LDL Cholesterol Direct 66 mg/dL (<100)
== END 2021-09-10 08:24 | disposition home or self-care (01) ==
LOC: HO.HMGCX 08:23
PROVIDERS: Absent Provider Nurse Practitioner Gerontology; PCP Nurse Practitioner Family; Visit Provider Internal Medicine Gastroenterology
DX: K74.60 Unspecified cirrhosis of liver (principal); E11.65 Type 2 diabetes mellitus with hyperglycemia; D64.9 Anemia, unspecified
CPT/HCPCS: 36415; 76700; 80053; 80061; 80076; 82248; 82728; 83540; 83721; 85025; 85610

== ENCOUNTER 2021-09-13 11:24 | Day surgery (SDC) | payer OTHER, SELFPAY ==
--- NOTE | 2021-09-12 09:46 | P.CONAN_ITS ---
Documented by User: Lauryn Wing NP 09/12/21 09:48 HPI - Anesthesia Eval Consult details Narrative: 60yo M for Upper Endoscopy and Colonoscopy Last EGD with MAC 01/2021 ETOH cirrhosis - h/o ascites, varices, splenomegaly s/p TIPS 2018 PLT=78 09/10/21 PMFSH Active Problems Active Problems: All Active Problems (Updated 09/10/21 @ 11:47 by Margarita Yee, RN) Adenocarcinoma of lower esophagus (Acute) Phimosis (Acute) Screening PSA (prostate specific antigen) (Acute) Seizures (Acute) Left knee pain (Acute) HTN (hypertension) (Acute) Erectile dysfunction associated with type 2 diabetes mellitus (Acute) Systolic murmur (Acute) Type 2 diabetes mellitus with hyperglycemia (Acute) Type 2 diabetes mellitus with diabetic polyneuropathy (Acute) Hyperlipidemia LDL goal <70 (Acute) Past Medical History Medical History Adenocarcinoma of lower esophagus Alcoholic cirrhosis Anemia Constipation Diabetes Elevated ferritin Esophageal varices Esophagus, carcinoma Hepatic cirrhosis Hepatitis C Hx of splenomegaly Hyperlipidemia LDL goal <70 Male circumcision Seizure disorder Stroke Thrombocytopenia Type 2 diabetes mellitus with diabetic polyneuropathy Type 2 diabetes mellitus with hyperglycemia Family History Family History Father No problems noted. Mother Diabetes mellitus Family history of problems with anesthesia: No Surgical History Surgical History (Updated 09/10/21 @ 11:45 by Margarita Yee RN) Hx of circumcision Hx of colonoscopy Hx of endoscopy History of Problems with Anesthesia: No Social History Social History (Updated 08/15/21 @ 13:42 by Deborah Bah [facility]) Household Members: Spouse Household Members Other:: Spouse: Antoni Housing: House Are you a primary complex care nurse practitioner to a significant other at home: No Do you presently have visiting nurse or other home services: No Alcohol intake: never Patient Tobacco Use Status: Former Tobacco user Quit Date: 1979 Tobacco use type: Cigarette Years Smoked: 10 e-Cigarette/Vaping Use: Never Used Second Hand Smoke Exposure: No Advance Directives: No Advance Directives Information Provided: Yes service: No Current occupational status: disabled Meds Allergies Allergy/AdvReac Type Severity Reaction Status Date / Time No Known Allergies Allergy Verified 09/10/21 11:45 Home Medications Medication Instructions Recorded Confirmed Last Taken Type cholecalciferol (vitamin D3) 25 25 mcg PO DAILY 04/06/20 09/10/21 Unknown History mcg (1,000 unit) tablet (Vitamin D3) lancets 33 gauge #100 ea 08/15/20 08/15/21 Unknown History pen needle, diabetic 31 gauge x #1200 ea 08/15/20 08/15/21 Unknown History 11/04 Exam Exam Date and Time: September 12, 2021 0946 Pertinent Lab Results Pertinent Lab Results: Laboratory Tests 09/10/21 09/10/21 09:02 09:02 WBC 3.8 L Hgb 10.1 L D Hct 36.5 L D Plt Count 78 L Sodium 142 Potassium 4.2 Chloride 111 H Carbon Dioxide 24 BUN 11 Creatinine 0.87 Narrative Narrative: ECHO 07/2021 Conclusions: - Essentially normal study ? ? US abdomen complete 09/10/21 IMPRESSION: Cirrhotic-appearing liver. Patent TIPS shunt with appropriate hepatopedal flow. Splenomegaly. No ascites. Assessment and Plan Assessment Anesthesia Assessment: Chart Reviewed Final Anesthetic Review Family History of Problems with Anesthesia: No History of Problems with Anesthesia: No Documented by User: Catalina Brown MD 09/13/21 11:43 PMF Past Medical History Medical History Adenocarcinoma of lower esophagus Alcoholic cirrhosis Anemia Constipation Diabetes Elevated ferritin Esophageal varices Esophagus, carcinoma Hepatic cirrhosis Hepatitis C Hx of splenomegaly Hyperlipidemia LDL goal <70 Male circumcision Seizure disorder Stroke Thrombocytopenia Type 2 diabetes mellitus with diabetic polyneuropathy Type 2 diabetes mellitus with hyperglycemia Family History Family History Father No problems noted. Mother Diabetes mellitus Surgical History Surgical History (Updated 09/10/21 @ 11:45 by Margarita Yee, PAUL) Hx of circumcision Hx of colonoscopy Hx of endoscopy Social History Social History (Updated 08/15/21 @ 13:42 by ТАТЬЯНА Merlos Household Members: Spouse Household Members Other:: Spouse: Antoni Housing: House Are you a primary complex care nurse practitioner to a significant other at home: No Do you presently have visiting nurse or other home services: No Alcohol intake: never Patient Tobacco Use Status: Former Tobacco user Quit Date: 1979 Tobacco use type: Cigarette Years Smoked: 10 e-Cigarette/Vaping Use: Never Used Second Hand Smoke Exposure: No Advance Directives: No Advance Directives Information Provided: Yes service: No Current occupational status: disabled Meds Allergies Allergy/AdvReac Type Severity Reaction Status Date / Time No Known Allergies Allergy Verified 09/10/21 11:45 Home Medications Medication Instructions Recorded Confirmed Last Taken Type cholecalciferol (vitamin D3) 25 25 mcg PO DAILY 04/06/20 09/10/21 Unknown History mcg (1,000 unit) tablet (Vitamin D3) lancets 33 gauge #100 ea 08/15/20 08/15/21 Unknown History pen needle, diabetic 31 gauge x #1200 ea 08/15/20 08/15/21 Unknown History 11/04 Exam Airway Mallampati Class: II (Loose tooth top right) TM Dist: >3cm Neck ROM: Full Heart: rrr Lungs: cta Assessment and Plan Assessment Anesthesia Assessment: Anesthesia Plan Discussed and Chart Reviewed Final Anesthetic Review NPO: Yes ASA Class: III Final Preanesthetic Review: No Changes in Pt Med Stat, Meds/Allgs Chart Reviewed and Consent Obtained/Reviewed Patient Risk: Intermediate Procedure Risk: Intermediate Anesthetic Plan Anesthetic Plan: MAC: Disposition: Standard PACU
[2021-09-13 11:39] VITALS: BMI 30.5
[2021-09-13 11:52] VITALS: BP 139/79; PULSE 85; RESP 18; TEMP 36.5; O2SAT 100
[2021-09-13 11:57] LABS: Glucose, Whole Blood 166 mg/dL (60-115)
--- NOTE | 2021-09-13 12:06 | MHC.SHP ---
Pre-Procedural Eval Section A Date of Service: 09/13/21 The patient is an INPATIENT: No Changes since office visit: No Cold of Flu in the past 2 weeks, No New Medical Problems, No Changes in Medication and No Patient answered all questions The History & Physical has been completed within 30 days and I have reviewed it.: Yes Section B Chief Complaint: anemia Allergies: Allergies Allergy/AdvReac Type Severity Reaction Status Date / Time No Known Allergies Allergy Verified 09/10/21 11:45 Plan I have reviewed the history and physical and performed a pertinent physical examination on my patient. No changes have occurred unless specified.
[2021-09-13] MEDS: Lactated Ringers 1,000 ML 100 ML IVCONT (12:09)
[2021-09-13 12:46] VITALS: BP 94/59; PULSE 86; RESP 16; TEMP 36.6; O2SAT 97
--- NOTE | 2021-09-13 12:46 | PM.OP ---
Brief Operative Note Date of Service: 09/13/21 Pre-op diagnosis: iron def anemia Post-op diagnosis: same (gastric polyps, colonic avm) Procedure: egd, colon Surgeon: Benjamin Suggs Anesthesia: MAC Was an [employer] Stock Clerk used for this Procedure?: No Estimated blood loss (mL): 2 Pathology: other (bxs gastric polyps) Condition: stable Disposition: PACU
[2021-09-13 13:00] VITALS: BP 103/66; PULSE 76; RESP 16; O2SAT 97
[2021-09-13 13:22] VITALS: BP 112/67; PULSE 74; RESP 18; TEMP 36.6; O2SAT 98
--- NOTE | 2021-09-13 15:35 | OP_ITS ---
SURGEON: Benjamin Suggs MD INDICATIONS: Iron-deficiency anemia and history of esophageal adenocarcinoma. PREOPERATIVE DIAGNOSIS: POSTOPERATIVE DIAGNOSIS: PROCEDURE PERFORMED: Upper endoscopy with biopsy, colonoscopy to the terminal ileum. ESTIMATED BLOOD LOSS: COMPLICATIONS: ANESTHESIA: ASSISTANTS: SPECIMENS: MEDICATIONS: Monitored anesthesia care. DESCRIPTION OF PROCEDURE: History and physical were performed. The risks and benefits of the procedure were explained to the patient. Informed consent was obtained. The patient was placed in the left lateral decubitus position. The Olympus video gastroscope was introduced into the esophagus, stomach, and duodenum. Examination was performed and the scope was removed. He was repositioned for colonoscopy. A digital rectal exam was performed and was found to be normal. The Olympus pediatric video colonoscope was introduced into the rectum and advanced to the cecum without difficulty. The cecum was identified by transillumination, palpation, and identification of the ileocecal valve. Examination was performed. The scope was removed. He tolerated both procedures well and was taken to recovery area in stable condition. FINDINGS: UPPER ENDOSCOPY: Esophagus: The esophagus showed changes consistent with radiation therapy over the lower 1/3 with small areas of petechiae measuring 1-2 mm. There was no evidence of recurrent adenocarcinoma at the EG junction. No biopsies were obtained due to the patient's history of esophageal varices and thrombocytopenia. No varices were seen. Stomach: The stomach showed no evidence of masses or ulcers. There were 2 polyps present at the antrum near the pyloric channel. These had been seen on prior examinations and they were re-biopsied. The largest measured approximately 15 mm x 20 mm. Duodenum: The bulb and second portion were normal. COLONOSCOPY: The terminal ileum was normal. The prep was excellent. There was an 8 mm nonbleeding AVM on the ileocecal valve. No other AVMs were identified. No polyps were seen. Retroflexed examination showed moderate-sized internal hemorrhoids. IMPRESSION: 1. Radiation changes to the lower esophagus. 2. Gastric polyps. 3. Colonic arteriovenous malformation. RECOMMENDATION: 1. Follow up the biopsy results. 2. Repeat colonoscopy is recommended in 10 years for average risk individuals. 3. Continue present therapy. MD GUY Tejada/JUAN CARLOS / [id number]
== END 2021-09-13 13:46 | disposition home or self-care (01) ==
PROVIDERS: PCP Nurse Practitioner Family; Visit Provider Internal Medicine Gastroenterology
PROC: (CPT 45378; principal; 2021-09-13 12:30)
DX: D50.9 Iron deficiency anemia, unspecified (principal); K55.20 Angiodysplasia of colon without hemorrhage; K64.8 Other hemorrhoids; K31.7 Polyp of stomach and duodenum; K29.50 Unspecified chronic gastritis without bleeding; K74.69 Other cirrhosis of liver; B19.20 Unspecified viral hepatitis C without hepatic coma; D69.6 Thrombocytopenia, unspecified; E11.9 Type 2 diabetes mellitus without complications; Z79.84 Long term (current) use of oral hypoglycemic drugs; Z79.899 Other long term (current) drug therapy; Z85.01 Personal history of malignant neoplasm of esophagus; Z92.21 Personal history of antineoplastic chemotherapy; Z92.3 Personal history of irradiation; Z87.891 Personal history of nicotine dependence
CPT/HCPCS: 45378; 43239; 82947; 88305; 88342

== ENCOUNTER → 2021-09-17 12:17 | Outpatient (BNVA) | payer OTHER, SELFPAY | PROVIDERS: PCP Nurse Practitioner Family; Visit Provider Nurse Practitioner Gerontology | DX: E11.65 Type 2 diabetes mellitus with hyperglycemia (principal); E11.42 Type 2 diabetes mellitus with diabetic polyneuropathy; E78.5 Hyperlipidemia, unspecified; Z79.84 Long term (current) use of oral hypoglycemic drugs | CPT/HCPCS: 82947; 99212 ==

== ENCOUNTER 2021-10-11 09:55 | Outpatient (REF) | payer OTHER, SELFPAY ==
[2021-10-11 11:26] LABS: Appearance Urine CLEAR; Color Urine YELLOW; Glucose Urine UA >=1000 MG/DL (NEG); Leukocyte Esterase Urine NEG (NEG); Nitrite Urine NEG (NEG); Specific Gravity - Urine 1.015 (1.005-1.025); Urine Blood NEG (NEG); Urine Ketones NEG (NEG); Urine Protein NEG (NEG-TRACE)
[2021-10-11 12:02] LABS: TSH reflex Free T4 1.83 uIU/mL (0.32-4.0)
[2021-10-11 12:13] LABS: Alanine Aminotransferase 31 U/L (0-40); Albumin Level 3.5 g/dL (3.5-5.0); Alkaline Phosphatase 125 U/L (39-117); Anion Gap 9 (12-20); Aspartate Amino Transferase 48 U/L (5-37); Bilirubin Total 0.9 mg/dL (0.0-1.0); Blood Urea Nitrogen 7 mg/dL (9-16); Calcium 8.8 mg/dL (8.4-10.2); Carbon Dioxide 26 mmol/L (22-29); Chloride 110 mmol/L (96-108); Cholesterol 130 mg/dL; Estimated Glomerular Filt Rate > 60; Glucose Fasting 155 mg/dL (60-99); HDL Cholesterol 46 mg/dL; LDL Cholesterol Calculated 74 mg/dl; Potassium 4.1 mmol/L (3.3-5.1); Sodium 141 mmol/L (135-145); Total Protein 6.8 g/dL (6.5-8.0); Triglycerides 54 mg/dL
[2021-10-11 12:46] LABS: RBC Urine 0 /HPF (0); WBC Urine 0 /HPF (0-4)
== END 2021-10-11 09:56 | disposition home or self-care (01) ==
LOC: HO.HMGCLDS 09:55
PROVIDERS: PCP Nurse Practitioner Family; Visit Provider Nurse Practitioner Family
DX: Z12.5 Encounter for screening for malignant neoplasm of prostate (principal); C15.5 Malignant neoplasm of lower third of esophagus
CPT/HCPCS: 36415; 80053; 80061; 81001; 84153; 84443

== ENCOUNTER 2021-12-31 13:21 | Outpatient (REF) | payer OTHER, SELFPAY | END 2021-12-31 13:22 | disposition home or self-care (01) | LOC: HO.XRAY 13:21 | PROVIDERS: PCP Nurse Practitioner Family; Visit Provider Internal Medicine Medical Oncology | DX: Z13.89 Encounter for screening for other disorder (principal) ==

== ENCOUNTER 2022-03-27 07:45 | Outpatient (REF) | payer OTHER, SELFPAY ==
[2022-03-27 11:12] LABS: MANUAL DIFF FLAG NO
[2022-03-27 11:19] LABS: Basophils Percent Auto 0.9 % (0-2); Eosinophils Absolute Auto 0.2 X10*3/uL (0.0-0.4); Eosinophils Percent Auto 5.4 % (0-4); Hematocrit 46.2 % (42.0-52.0); Hemoglobin 16.5 g/dl (14.0-18.0); Imm Gran Abs Auto 0.02 X10*3/uL (0.00-0.03); Imm Gran Pct Auto 0.5 % (0.0-0.4); Lymphocytes Absolute Auto 1.2 X10*3/uL (1.2-4.9); Lymphocytes Percent Auto 27.1 % (20-40); Mean Corpuscular HGB Conc 35.7 g/dl (31.0-36.0); Mean Corpuscular Hemoglobin 32.7 pg (27.0-33.0); Mean Corpuscular Volume 91.7 fL (80.0-98.0); Mean Platelet Volume 10.5 fL (9.4-12.4); Monocytes Absolute Auto 0.4 X10*3/uL (0.1-1.2); Monocytes Percent Auto 8.1 % (2-11); Neutrophils Absolute Auto 2.6 x10*3/uL (2.0-8.3); Platelet Count 71 X10*3/uL (160-400); Red Blood Count 5.04 X10*6/uL (4.60-5.80); White Blood Count 4.4 X10*3/uL (4.8-10.8)
[2022-03-27 11:22] LABS: Estimated Average Glucose 140 mg/dL; Hemoglobin A1c % 6.5 %
[2022-03-27 11:24] LABS: Appearance Urine Clear; Color Urine Dark Yellow; Glucose Urine UA >=1000 mg/dL (Negative); Leukocyte Esterase Urine Negative (Negative); Nitrite Urine Negative (Negative); PH 5.5 (5.0-9.0); Specific Gravity - Urine >= 1.030 (1.005-1.025); UMIC TRIGGER UACC YES; Urine Blood Negative (Negative); Urine Ketones Trace mg/dL (Negative); Urine Protein Negative (Neg-Trace)
[2022-03-27 11:32] LABS: Alanine Aminotransferase 30 U/L (0-40); Albumin Level 3.6 g/dL (3.5-5.0); Alkaline Phosphatase 107 U/L (39-117); Anion Gap 13 (12-20); Aspartate Amino Transferase 40 U/L (5-37); Bilirubin Total 1.9 mg/dL (0.0-1.0); Blood Urea Nitrogen 14 mg/dL (9-16); Calcium 8.7 mg/dL (8.4-10.2); Carbon Dioxide 24 mmol/L (22-29); Chloride 110 mmol/L (96-108); Cholesterol 173 mg/dL; Estimated Glomerular Filt Rate > 60; Glucose Fasting 182 mg/dL (60-99); HDL Cholesterol 62 mg/dL; LDL Cholesterol Calculated 98 mg/dl; Potassium 4.2 mmol/L (3.3-5.1); Sodium 143 mmol/L (135-145); Total Protein 6.9 g/dL (6.5-8.0); Triglycerides 68 mg/dL
[2022-03-27 11:39] LABS: Creatinine Urine 182.29 mg/dL; Microalbum/Creatinine Ratio Ur 9.3 ug/mg cr
[2022-03-27 11:55] LABS: TSH reflex Free T4 1.88 uIU/mL (0.32-4.0)
[2022-03-27 13:51] LABS: Bacteria Urine None Seen (None Seen); Hyaline Casts Urine 0-2 /LPF (0-2); RBC Urine 0-2 /HPF (0-2); Squamous Epithelial Cell Urine 0-2 /HPF (0-2); WBC Urine 0-5 /HPF (0-5)
== END 2022-03-27 07:46 | disposition home or self-care (01) ==
LOC: HO.HMGCLDS 07:45
PROVIDERS: PCP Nurse Practitioner Family; Visit Provider Nurse Practitioner Family
DX: E11.65 Type 2 diabetes mellitus with hyperglycemia (principal)
CPT/HCPCS: 36415; 80053; 80061; 81001; 82043; 83036; 84443; 85025

== ENCOUNTER 2022-04-14 13:52 | Emergency (ER) | payer OTHER, SELFPAY ==
--- NOTE | ~2022-04-14 | XR_ITS ---
EXAMINATION: XR FINGER, LEFT CLINICAL INFORMATION: Thumb injury. COMPARISON: No similar priors. TECHNIQUE: Three views of the left thumb. FINDINGS: No acute fractures or malalignment. Moderate degenerative osteoarthritis of the first carpometacarpal joint and triscaphe space with subcortical sclerosis and joint space narrowing. No erosions. No chondrocalcinosis. Soft tissue swelling around the thumb. No unexpected radiopaque foreign bodies. XR/XR finger LT min 2V IMPRESSION: 1. No acute fractures or malalignment. 2. Moderate degenerative osteoarthritis of the first carpometacarpal joint and triscaphe space.
[2022-04-14 14:38] VITALS: BP 112/78; PULSE 74; RESP 16; TEMP 36.6; O2SAT 98; BMI 32.1
--- NOTE | 2022-04-14 15:10 | ED.WOUNDLAC ---
HPI - Wound/Laceration General Chief Complaint: Wound/Laceration Stated Complaint: DRILL BIT THROUGH L THUMB Time Seen by Provider: 04/14/22 15:08 Source: patient Mode of arrival: ambulatory Limitations: no limitations History of Present Illness HPI narrative: 61 yo male with history of diabetes type 2, seizures, HLD, HTN, esophageal adenocarcinoma who presents to the ER for evaluation of a left thumb injury that occurred at home a few hours ago. He was using a drill when a drill bit went through and through hit the tip of his left thumb. He was able to remove the drill bit and had active bleeding and pain. He was able to control the bleeding with direct pressure. He is worried because he is diabetic. He is not up-to-date on his tetanus shot. He is able to fully extend and flex the left thumb. He denies any weakness or numbness. Onset (ago): hour(s) (4) Extremity Location: left: hand (distal thumb) Place: home Patient tetanus UTD: No Context: accidental Associated symptoms: pain Treatments prior to arrival: bandage Related Data Home Medications Medication Instructions Recorded Confirmed cholecalciferol (vitamin D3) 25 25 mcg PO DAILY 04/06/20 02/13/22 mcg (1,000 unit) tablet (Vitamin D3) lancets 33 gauge #100 ea 08/15/20 02/13/22 pen needle, diabetic 31 gauge x #1,200 ea 08/15/20 02/13/2211/04 levetiracetam 500 mg tablet 500 mg PO TID 01/17/22 02/13/22 (Keppra) repaglinide 0.5 mg tablet 0.25 mg PO TID 02/13/22 02/13/22 Previous Rx's Medication Instructions Recorded sildenafil 100 mg tablet 100 mg PO .COMPLEX PRN sexual 06/25/21 activity 90 days #30 tabs empagliflozin 25 mg tablet 25 mg PO DAILY #30 tabs 11/01/21 (Jardiance) nadolol 20 mg tablet 20 mg PO DAILY 90 days #90 tabs 01/17/22 baclofen 10 mg tablet 5 mg PO TID PRN muscle spasticity 03/03/22 90 days #180 tabs ferrous sulfate 325 mg (65 mg 325 mg PO BID #60 tabs 03/04/22 iron) tablet (Iron (ferrous sulfate)) pantoprazole 40 mg tablet,delayed 40 mg PO DAILY 90 days #90 tabs 03/08/22 release amoxicillin 875 mg-potassium 1 tab PO BID #14 tabs 04/14/22 clavulanate 125 mg tablet Allergies Allergy/AdvReac Type Severity Reaction Status Date / Time No Known Allergies Allergy Verified 02/13/22 17:45 Review of Systems Review of Systems: Constitutional: No Fever, No Chills Cardiovascular: No Chest Pain, No SOB Gastrointestinal: No Nausea, No Vomiting Musculoskeletal: + joint pain, No Myalgias Skin: + Skin Lesions, No rash Neuro: No Weakness, No Numbness Psych: +Anxiety/Panic Heme/Lymph: No Bruising PMFSH Past Medical History Medical History (Updated 04/14/22 @ 16:03 by MELINDA Lewis) Adenocarcinoma of lower esophagus Alcoholic cirrhosis Anemia Constipation Diabetes Elevated ferritin Esophageal varices Esophagus, carcinoma Hepatic cirrhosis Hepatitis C Hx of splenomegaly Hyperlipidemia LDL goal <70 Male circumcision Seizure disorder Stroke Thrombocytopenia Type 2 diabetes mellitus with diabetic polyneuropathy Type 2 diabetes mellitus with hyperglycemia Surgical History Hx of circumcision Hx of colonoscopy Hx of endoscopy Family History Family History Father No problems noted. Mother Diabetes mellitus Social History Social History Household Members: Spouse Household Members Other:: Spouse: Antoni Housing: House Are you a primary care transitions manager to a significant other at home: No Do you presently have visiting nurse or other home services: No Alcohol intake: never Patient Tobacco Use Status: Former Tobacco user Quit Date: 40 years ago Tobacco use type: Cigarette Years Smoked: 10 e-Cigarette/Vaping Use: Never Used Second Hand Smoke Exposure: No Advance Directives: Yes Advance Directives on File: Yes Advance Directives Date on File: 01/28/21 service: No Current occupational status: disabled Cognitive needs: No Hearing needs: No Vision needs: No Physical Exam Vital Signs: Vital Signs: Last Vital Signs Temp 97.8 F 04/14/22 14:38 Pulse 74 04/14/22 14:38 Resp 16 04/14/22 14:38 BP 112/78 04/14/22 14:38 Pulse Ox 98 04/14/22 14:38 O2 Del Method 04/14/22 14:38 BMI result Body Mass Index 32.1 Appearance: Alert. Oriented X3. No acute distress. HEENT: normal inspection CVS: Normal heart rate and rhythm. Pulses normal. Respiratory: No respiratory distress. Skin: Skin warm and dry. Normal skin color. Normal skin turgor. No rashes. Extremities: Distal tip of the left thumb with 2 wounds that are less than half a cm around, regularly shaped with slight oozing consistent with an entrance and exit wound. Normal extension and flexion of the thumb. Normal thumb to finger opposition. No numbness. Cap refill less than 3 seconds. Neuro: Oriented X 3. No motor deficit. No sensory deficit. Course Course Course Narrative: 61-year-old male with history of type 2 diabetes, HTN, seizures, adenocarcinoma of the esophagus who presents to the ER for evaluation of a left thumb injury, through and through injury with a drill bit. X-ray reviewed and does not appear to have bony involvement. He has normal function of all tendons. No sensory deficit. No active bleeding. The wound was soaked in Betadine, saline, Hydrogen peroxide combination for antiseptic affect. Will prescribe prophylactic antibiotics to prevent infection. Tdap given. Patient counseled on wound care and return precautions. He is stable for discharge home. Critical Care Time Critical Care Time Critical Care Time: No Discharge Plan Discharge Clinical Impression: Puncture wound Patient Disposition: Home, Self-Care Instructions: Puncture Wound (ED) Additional Instructions: Your x-ray today showed no broken bones. The drill bit missed the bone. Change the dressing every day, or more often if needed. Do not get wet for 24 hours, after that you can briefly wash with soap and water then pat dry. Use bacitracin 1x per day. Keep wound clean and covered. Do not submerge in water, no swimming. If you develop signs of infection including increased pain, swelling, redness or drainage of pus come back to the ER for further evaluation. Prescriptions: New amoxicillin-pot clavulanate 875-125 mg tablet 1 tab PO BID Qty: 14 0RF No Action Jardiance 25 mg tablet 25 mg PO DAILY Qty: 30 6RF nadolol 20 mg tablet 20 mg PO DAILY 90 Days Qty: 90 0RF baclofen 10 mg tablet 5 mg PO TID PRN (Reason: muscle spasticity) 90 Days Qty: 180 1RF pantoprazole 40 mg tablet,delayed release (DR/EC) 40 mg PO DAILY 90 Days Qty: 90 0RF cholecalciferol (vitamin D3) [Vitamin D3] 25 mcg (1,000 unit) Tablet 25 mcg PO DAILY levetiracetam [Keppra] 500 mg tablet 500 mg PO TID ferrous sulfate [Iron (ferrous sulfate)] 325 mg (65 mg iron) Tablet 325 mg PO BID Qty: 60 2RF (DME) pen needle, diabetic 31 gauge x 5/16 needle See Rx Instructions subcut QID Qty: 1200 Rx Instructions: As directed (DME) lancets 33 gauge misc See Rx Instructions topical QID Qty: 100 Rx Instructions: As directed repaglinide 0.5 mg tablet 0.25 mg PO TID sildenafil 100 mg tablet 100 mg PO .COMPLEX PRN (Reason: sexual activity) 90 Days Qty: 30 1RF Rx Instructions: 100 mg PO when needed PRN; administer 60 minutes before intended activity Interventions: ED Discharge Assessment Last Done: 04/14/22 16:15
[2022-04-14] MEDS: Diphth,Pertus(ACell),Tet Adult 0.5 ML SYRINGE IM (16:12)
== END 2022-04-14 16:16 | disposition home or self-care (01) ==
PROVIDERS: Emergency Provider Emergency Medicine; PCP Nurse Practitioner Family
DX: S61.032A Puncture wound without foreign body of left thumb without damage to nail, initial encounter (principal); W29.8XXA Contact with other powered hand tools and household machinery, initial encounter; I10 Essential (primary) hypertension; E11.9 Type 2 diabetes mellitus without complications; Y93.89 Activity, other specified; Y92.019 Unspecified place in single-family (private) house as the place of occurrence of the external cause; Y99.9 Unspecified external cause status
CPT/HCPCS: 73140; 90471; 90715; 99282; 99284

== ENCOUNTER → 2022-06-24 14:45 | Outpatient (BNVA) | payer OTHER, SELFPAY | PROVIDERS: PCP Nurse Practitioner Family; Visit Provider Urology | DX: E11.69 Type 2 diabetes mellitus with other specified complication (principal); N52.1 Erectile dysfunction due to diseases classified elsewhere | CPT/HCPCS: 99212 ==

== ENCOUNTER 2022-07-17 08:39 | Outpatient (REF) | payer OTHER, SELFPAY ==
[2022-07-17 11:31] LABS: MANUAL DIFF FLAG NO
[2022-07-17 11:36] LABS: Appearance Urine Clear; Color Urine Dark Yellow; Glucose Urine UA >=1000 mg/dL (Negative); Leukocyte Esterase Urine Negative (Negative); Nitrite Urine Negative (Negative); Specific Gravity - Urine >= 1.030 (1.005-1.025); UMIC TRIGGER UACC YES; Urine Blood Negative (Negative); Urine Ketones Negative (Negative); Urine Protein Negative (Neg-Trace)
[2022-07-17 11:40] LABS: Bacteria Urine None Seen (None Seen); Hyaline Casts Urine 0-2 /LPF (0-2); RBC Urine 0-2 /HPF (0-2); Squamous Epithelial Cell Urine 0-2 /HPF (0-2); WBC Urine 0-5 /HPF (0-5)
[2022-07-17 11:44] LABS: Basophils Absolute Auto 0.1 X10*3/uL (0.0-0.2); Basophils Percent Auto 0.9 % (0-2); Eosinophils Absolute Auto 0.3 X10*3/uL (0.0-0.4); Eosinophils Percent Auto 5.9 % (0-4); Hematocrit 46.9 % (42.0-52.0); Hemoglobin 16.7 g/dl (14.0-18.0); Imm Gran Abs Auto 0.01 X10*3/uL (0.00-0.03); Imm Gran Pct Auto 0.2 % (0.0-0.4); Lymphocytes Absolute Auto 1.8 X10*3/uL (1.2-4.9); Lymphocytes Percent Auto 31.5 % (20-40); Mean Corpuscular HGB Conc 35.6 g/dl (31.0-36.0); Mean Corpuscular Hemoglobin 32.4 pg (27.0-33.0); Mean Corpuscular Volume 91.1 fL (80.0-98.0); Mean Platelet Volume 10.2 fL (9.4-12.4); Monocytes Absolute Auto 0.4 X10*3/uL (0.1-1.2); Monocytes Percent Auto 7.5 % (2-11); Platelet Count 71 X10*3/uL (160-400); Red Blood Count 5.15 X10*6/uL (4.60-5.80); Red Cell Distribution Width 14.6 % (11.0-16.0); White Blood Count 5.6 X10*3/uL (4.8-10.8)
[2022-07-17 12:04] LABS: Estimated Average Glucose 166 mg/dL; Hemoglobin A1c % 7.4 %
[2022-07-17 12:11] LABS: Alanine Aminotransferase 34 U/L (0-40); Albumin Level 3.5 g/dL (3.5-5.0); Alkaline Phosphatase 118 U/L (39-117); Anion Gap 9 (12-20); Aspartate Amino Transferase 43 U/L (5-37); Bilirubin Total 1.7 mg/dL (0.0-1.0); Blood Urea Nitrogen 12 mg/dL (9-16); Calcium 8.9 mg/dL (8.4-10.2); Carbon Dioxide 28 mmol/L (22-29); Chloride 111 mmol/L (96-108); Cholesterol 128 mg/dL; Estimated Glomerular Filt Rate > 60; Glucose Fasting 145 mg/dL (60-99); HDL Cholesterol 51 mg/dL; LDL Cholesterol Calculated 64 mg/dl; Potassium 3.7 mmol/L (3.3-5.1); Sodium 144 mmol/L (135-145); Total Protein 6.5 g/dL (6.5-8.0); Triglycerides 66 mg/dL
[2022-07-17 12:54] LABS: Creatinine Urine 141.17 mg/dL; Microalbum/Creatinine Ratio Ur 7.7 ug/mg cr
== END 2022-07-17 08:40 | disposition home or self-care (01) ==
LOC: HO.HMGCLDS 08:39
PROVIDERS: PCP Nurse Practitioner Family; Visit Provider Nurse Practitioner Family
DX: E11.42 Type 2 diabetes mellitus with diabetic polyneuropathy (principal)
CPT/HCPCS: 36415; 80053; 80061; 81001; 82043; 83036; 84443; 85025

== ENCOUNTER 2022-10-21 07:34 | Outpatient (REF) | payer OTHER, SELFPAY ==
--- NOTE | ~2022-10-21 | US_ITS ---
EXAMINATION: US ABDOMEN COMPLETE CLINICAL INFORMATION: Other cirrhosis of liver. COMPARISON: Ultrasound abdomen complete 09/10/2021 and 02/14/2021. TECHNIQUE: Real-time imaging of the abdominal viscera. FINDINGS: PANCREAS: Obscured by bowel gas. ABDOMINAL AORTA: The proximal, mid, and distal segments are normal in caliber. INFERIOR VENA CAVA: Visualized portions are normal. LIVER: TIPS catheter appears grossly patent. Coarse hepatic echotexture with nodular hepatic contour distal of cirrhosis. No focal hepatic lesion. There is no intrahepatic biliary duct dilatation seen. GALLBLADDER: Normal. The gallbladder is physiologically distended without evidence of stones, sludge, polyps, wall thickening or pericholecystic fluid. COMMON BILE DUCT: Normal in caliber measuring 0.3 cm in diameter. RIGHT KIDNEY: Normal. No hydronephrosis. No renal calculi or focal parenchymal lesions. The kidney measures 12.6 cm in maximum dimension. LEFT KIDNEY: Normal. No hydronephrosis. No renal calculi or focal parenchymal lesions. The kidney measures 11.7 cm in maximum dimension. SPLEEN: Spleen is enlarged. The spleen measures 15.8 cm in maximum dimension. FREE FLUID: None. US/US abdomen complete IMPRESSION: 1. Cirrhotic morphology of the liver. TIPS catheter appears grossly patent. No hepatic lesion. 2. Splenomegaly.
== END 2022-10-21 07:35 | disposition home or self-care (01) ==
LOC: HO.US 07:34
PROVIDERS: PCP Nurse Practitioner Family; Visit Provider Internal Medicine Gastroenterology
DX: K74.69 Other cirrhosis of liver (principal); N52.9 Male erectile dysfunction, unspecified; I10 Essential (primary) hypertension; E78.5 Hyperlipidemia, unspecified; E11.9 Type 2 diabetes mellitus without complications; Z79.899 Other long term (current) drug therapy
CPT/HCPCS: 76700; Q3014

== ENCOUNTER 2022-11-12 08:09 | Outpatient (REF) | payer OTHER, SELFPAY ==
[2022-11-12 11:17] LABS: Appearance Urine Clear; Color Urine Yellow; Glucose Urine UA >=1000 mg/dL (Negative); Leukocyte Esterase Urine Negative (Negative); Nitrite Urine Negative (Negative); PH 5.5 (5.0-9.0); Specific Gravity - Urine >= 1.030 (1.005-1.025); UMIC TRIGGER UACC YES; Urine Blood Negative (Negative); Urine Ketones Trace mg/dL (Negative); Urine Protein Negative (Neg-Trace)
[2022-11-12 11:22] LABS: Bacteria Urine None Seen (None Seen); Hyaline Casts Urine 0-2 /LPF (0-2); RBC Urine 0-2 /HPF (0-2); Squamous Epithelial Cell Urine 0-2 /HPF (0-2); WBC Urine 0-5 /HPF (0-5)
[2022-11-12 11:44] LABS: Estimated Average Glucose 140 mg/dL; Hemoglobin A1c % 6.5 %
[2022-11-12 12:33] LABS: Alanine Aminotransferase 31 U/L (0-40); Albumin Level 3.4 g/dL (3.5-5.0); Alkaline Phosphatase 91 U/L (39-117); Anion Gap 14 (12-20); Aspartate Amino Transferase 45 U/L (5-37); Bilirubin Total 2.1 mg/dL (0.0-1.0); Blood Urea Nitrogen 13 mg/dL (9-16); Carbon Dioxide 24 mmol/L (22-29); Chloride 110 mmol/L (96-108); Cholesterol 137 mg/dL; Estimated Glomerular Filt Rate > 60; Glucose Fasting 124 mg/dL (60-99); HDL Cholesterol 46 mg/dL; LDL Cholesterol Calculated 75 mg/dl; Potassium 3.8 mmol/L (3.3-5.1); Sodium 144 mmol/L (135-145); Total Protein 6.5 g/dL (6.5-8.0); Triglycerides 84 mg/dL
[2022-11-12 12:53] LABS: Prostate Specific Antigen Scr 0.24 ng/mL (<0.05-4.0); TSH reflex Free T4 1.49 uIU/mL (0.32-4.0)
== END 2022-11-12 08:10 | disposition home or self-care (01) ==
LOC: HO.HMGCLDS 08:09
PROVIDERS: PCP Nurse Practitioner Family; Visit Provider Nurse Practitioner Family
DX: Z12.5 Encounter for screening for malignant neoplasm of prostate (principal); E11.65 Type 2 diabetes mellitus with hyperglycemia
CPT/HCPCS: 36415; 80053; 80061; 81001; 83036; 84153; 84443

== ENCOUNTER 2023-04-20 13:10 | Outpatient (AMB) | payer OTHER, SELFPAY ==
--- NOTE | 2023-04-20 13:13 | MHC.PC.OV ---
Vital Signs 04/20/23 13:17 Height 5 ft 7 in Weight 196 lb BMI 30.7 BP 116/78 Blood Pressure Location Lt brachial Position Sitting Pulse 79 Pulse Source Pulse Oximeter Pulse Oximetry (%) 97 Oxygen Delivery Method Room Air Intake Visit Reasons: 4 Month follow up Allergies No Known Allergies Allergy (Verified 04/20/23 13:17) Medication List - Last Reconciled 04/20/23 by MOLLY Whitehead atorvastatin 10 mg PO BEDTIME baclofen 10 mg PO DAILY PRN 30 days cholecalciferol (vitamin D3) (Vitamin D3) 25 mcg PO DAILY empagliflozin (Jardiance) 25 mg PO DAILY ferrous sulfate (Iron (ferrous sulfate)) 325 mg PO BID lancets As directed levetiracetam (Keppra) 500 mg PO TID lisinopril 2.5 mg PO DAILY nadolol 20 mg PO DAILY 90 days pantoprazole 40 mg PO DAILY 90 days pen needle, diabetic As directed repaglinide 0.5 mg PO TID tadalafil 5 mg PO DAILY 90 days Tobacco use date assessed: 10/15/22 HPI 4 Month follow up HPI Details Pt is a diabetic, on an SHIRA and a statin. A1C in office today is 7.2. Microalbumin is up to date. Denies polyuria, polydipsia, and neuropathy. Pt denies any signs and symptoms of hypoglycemia and does know how to correct it. Pt does not check his blood sugar often. Eye exam is up to date. labs ordered today. pt encouraged to keep better control of his sugars. [facility] Medical History Adenocarcinoma of lower esophagus Alcoholic cirrhosis Anemia Constipation Diabetes Elevated ferritin Esophageal varices Esophagus, carcinoma Hepatic cirrhosis Hepatitis C Hx of splenomegaly Hyperlipidemia LDL goal <70 Male circumcision Seizure disorder Stroke Thrombocytopenia Type 2 diabetes mellitus with diabetic polyneuropathy Type 2 diabetes mellitus with hyperglycemia Surgical History Hx of circumcision Hx of colonoscopy Hx of endoscopy Family History Father No problems noted. Mother Diabetes mellitus Social History Household Members: Spouse Household Members Other:: Spouse: Antoni Housing: House Are you a primary care associate to a significant other at home: No Do you presently have visiting nurse or other home services: No Alcohol intake: never Patient Tobacco Use Status: Former Tobacco user Quit Date: 40 years ago Tobacco use type: Cigarette Years Smoked: 10 e-Cigarette/Vaping Use: Never Used Second Hand Smoke Exposure: No Advance Directives Date on File: 01/28/21 service: No Current occupational status: disabled Cognitive needs: No Hearing needs: No Vision needs: No Questionnaire Thrive Questionnaire Date Thrive assessed: 10/15/22 BRANDI-7 AMB Questionnaire BRANDI-7 Date BRANDI - 7 assessed: 10/15/22 Source: Developed by Drs. Abhi Prajapati, Scarlett Forbes, Sandro Moyer and colleagues, with an educational pedro from [employer]. Review of Systems Const Reports as per HPI Physical exam (Primary Care) Vital Signs: Last Vital Signs Pulse 79 04/20/23 13:17 BP 116/78 04/20/23 13:17 Pulse Ox 97 04/20/23 13:17 Oxygen Delivery Method Room Air 04/20/23 13:17 BMI result Body Mass Index 30.7 Tobacco/Smoking Status: Tobacco use Status Tobacco use date assessed 10/15/22 04/20/23 13:16 Patient Tobacco Use Status Former Tobacco user 04/20/23 13:16 Tobacco use type Cigarette 04/20/23 13:16 e-Cigarette/Vaping Use Never Used 04/20/23 13:16 Thrive Assessment: Date of Thrive Assessment Date Thrive assessed 10/15/22 04/20/23 13:16 Const General: cooperative Orientation/consciousness: patient oriented x3 Resp Effort & Inspection: normal respiratory effort Auscultation: clear to auscultation bilaterally Cardio Rate: regular rate Rhythm: regular rhythm Heart sounds: S1 normal heart sound present and S2 normal heart sound present Skin Other: slight jaundice hew Neuro General: patient oriented x3 Extrem Other: bilat feet: + sensation with use of monofilament, bilat big toes medial plantar aspect with callous formation Psych Appearance: grossly normal Mental Status: mental status grossly normal Speech and movement: Normal speech and movement present Affect: normal affect Attitude: cooperative Thought process: Normal thought process present Thought content: Normal thought content present Insight: Good insight present (Psych) Judgement: Good judgement present (Psych) Results AMB Hemoglobin A1c AMB Hemoglobin A1c 7.2 % Last Edit by BILL Aiken on 04/20/23 13:38 Immunizations pneumoc 20-mary conj-dip cr(PF) 0.5 mL IM syringe Performing Provider: MOLLY Whitehead Performing Location: [facility] [place] Administered by: Funmilayo Pelaez CMA on 04/20/23 13:54 Dose Route Admin Location Dispensed Lot Number Expiration Date NDC Clothing Sales Assistant 0.5 mL IM Left Deltoid 0.5 mL [id number] 02/20/24 8122-1824-63 [employer] VIS Given Date VIS Provided VIS Publication Date 04/20/23 Single Vaccine 21 Eligibility Eligibility Date Funding Source Not VFC Eligible 04/20/23 Private Results Reviewed Results Reviewed: Laboratory Last Values Hgb A1c (Clinic) 7.2 % (4.0-6.0) H 04/20/23 13:37 Assessment and Plan Assessment & Plan (1) Type 2 diabetes mellitus with hyperglycemia: Code(s): E11.65 - Type 2 diabetes mellitus with hyperglycemia Plan The patient agreed to the use of a medical office secretary for this encounter. Scribed for MOLLY Tanner by Manda Canales medical office secretary, on 04/20/2023 at 13:25 EST. Orders: Orders Complete Blood Count Auto Diff Today E11.69 - Type 2 diabetes mellitus with other specified complication, N52.1 - Erectile dysfunction due to diseases classified elsewhere UA CC w/rflx Micro + Cult Today E11.69 - Type 2 diabetes mellitus with other specified complication, N52.1 - Erectile dysfunction due to diseases classified elsewhere Lipid Panel Today E11.69 - Type 2 diabetes mellitus with other specified complication, N52.1 - Erectile dysfunction due to diseases classified elsewhere Pneumococcal 20 Immunization Today Z23 - Encounter for immunization Comprehensive [place]. Panel Fast Today E11.69 - Type 2 diabetes mellitus with other specified complication, N52.1 - Erectile dysfunction due to diseases classified elsewhere TSH reflex Free T4 Today E11.69 - Type 2 diabetes mellitus with other specified complication, N52.1 - Erectile dysfunction due to diseases classified elsewhere Microalbumin, Random (w Creat) Today E11.69 - Type 2 diabetes mellitus with other specified complication, N52.1 - Erectile dysfunction due to diseases classified elsewhere AMB Hemoglobin A1c Today Z13.9 - Encounter for screening, unspecified Coding Level of Care Code Est Pt Level 3 (75590) Diagnoses Type 2 diabetes mellitus with hyperglycemia E11.65
[2023-04-20 13:17] VITALS: BP 116/78; PULSE 79; O2SAT 97; BMI 30.7
== END 2023-04-20 13:37 | disposition home or self-care (01) ==
PROVIDERS: PCP Nurse Practitioner Family; Visit Provider Nurse Practitioner Family
DX: Z23 Encounter for immunization (principal); E11.65 Type 2 diabetes mellitus with hyperglycemia
CPT/HCPCS: 83036; 90471; 90677; 99213

== ENCOUNTER 2023-08-05 08:05 | Outpatient (REF) | payer OTHER, SELFPAY ==
[2023-08-05 11:30] LABS: Appearance Urine Clear; Color Urine Dark Yellow; Glucose Urine UA >=1000 mg/dL (Negative); Leukocyte Esterase Urine Negative (Negative); Nitrite Urine Negative (Negative); Specific Gravity - Urine >= 1.030 (1.005-1.025); UMIC TRIGGER UACC YES; Urine Blood Negative (Negative); Urine Ketones Negative (Negative); Urine Protein Negative (Neg-Trace)
[2023-08-05 11:38] LABS: MANUAL DIFF FLAG NO
[2023-08-05 11:40] LABS: Bacteria Urine None Seen (None Seen); Hyaline Casts Urine 0-2 /LPF (0-2); RBC Urine 0-2 /HPF (0-2); Squamous Epithelial Cell Urine 0-2 /HPF (0-2); WBC Urine 0-5 /HPF (0-5)
[2023-08-05 11:54] LABS: Basophils Percent Auto 0.5 % (0-2); Eosinophils Absolute Auto 0.2 X10*3/uL (0.0-0.4); Eosinophils Percent Auto 3.3 % (0-4); Hematocrit 46.1 % (42.0-52.0); Hemoglobin 16.6 g/dl (14.0-18.0); Imm Gran Abs Auto 0.02 X10*3/uL (0.00-0.03); Imm Gran Pct Auto 0.3 % (0.0-0.4); Lymphocytes Absolute Auto 1.1 X10*3/uL (1.2-4.9); Lymphocytes Percent Auto 18.8 % (20-40); Mean Corpuscular Volume 91.7 fL (80.0-98.0); Mean Platelet Volume 10.5 fL (9.4-12.4); Monocytes Absolute Auto 0.7 X10*3/uL (0.1-1.2); Monocytes Percent Auto 11.5 % (2-11); Neutrophils Absolute Auto 3.8 x10*3/uL (2.0-8.3); Neutrophils Percent Auto 65.6 % (45-73); Platelet Count 118 X10*3/uL (160-400); Red Blood Count 5.03 X10*6/uL (4.60-5.80); Red Cell Distribution Width 14.6 % (11.0-16.0); White Blood Count 5.7 X10*3/uL (4.8-10.8)
[2023-08-05 12:23] LABS: Alanine Aminotransferase 25 U/L (0-40); Albumin Level 3.3 g/dL (3.5-5.0); Alkaline Phosphatase 97 U/L (39-117); Anion Gap 9 (12-20); Aspartate Amino Transferase 32 U/L (5-37); Bilirubin Total 1.7 mg/dL (0.0-1.0); Blood Urea Nitrogen 9 mg/dL (9-16); Calcium 8.9 mg/dL (8.4-10.2); Carbon Dioxide 29 mmol/L (22-29); Chloride 109 mmol/L (96-108); Cholesterol 101 mg/dL (<200); Estimated Glomerular Filt Rate > 60; Glucose Fasting 153 mg/dL (60-99); HDL Cholesterol 41 mg/dL (>40); LDL Cholesterol Calculated 48 mg/dL (<100); Potassium 3.8 mmol/L (3.3-5.1); Sodium 143 mmol/L (135-145); Total Protein 6.7 g/dL (6.5-8.0); Triglycerides 62 mg/dL (<150)
[2023-08-05 12:27] LABS: Creatinine Urine 143.17 mg/dL; Microalbum/Creatinine Ratio Ur 5.5 ug/mg cr (<30)
== END 2023-08-05 08:06 | disposition home or self-care (01) ==
LOC: HO.HMGCLDS 08:05
PROVIDERS: PCP Nurse Practitioner Family; Visit Provider Nurse Practitioner Family
DX: E11.69 Type 2 diabetes mellitus with other specified complication (principal); N52.1 Erectile dysfunction due to diseases classified elsewhere
CPT/HCPCS: 36415; 80053; 80061; 81001; 82043; 82570; 84443; 85025

== ENCOUNTER 2023-08-24 12:48 | Outpatient (AMB) | payer OTHER, SELFPAY ==
[2023-08-24 13:03] VITALS: BP 118/72; PULSE 73; O2SAT 98; BMI 29.8
--- NOTE | 2023-08-24 13:03 | A.OFFPC_ITS ---
Vital Signs 08/24/23 13:03 Height 5 ft 7 in Weight 190 lb 2 oz BMI 29.8 BP 118/72 Blood Pressure Location Lt brachial Position Sitting Pulse 73 Pulse Source Pulse Oximeter Pulse Oximetry (%) 98 Oxygen Delivery Method Room Air Intake Visit Reasons: 4M follow up Intake Note: pt is here to follow up for DM and HTN Allergies No Known Allergies Allergy (Verified 08/24/23 14:06) Medication List - Last Reconciled 08/24/23 by CLAUDIO Whitehead- atorvastatin 10 mg PO BEDTIME baclofen 10 mg PO DAILY PRN 90 days cholecalciferol (vitamin D3) (Vitamin D3) 25 mcg PO DAILY empagliflozin (Jardiance) 25 mg PO DAILY ferrous sulfate (Iron (ferrous sulfate)) 325 mg PO BID lancets As directed levetiracetam (Keppra) 500 mg PO TID lisinopril 2.5 mg PO DAILY nadolol 20 mg PO DAILY 90 days pantoprazole 40 mg PO DAILY 90 days pen needle, diabetic As directed repaglinide 0.5 mg PO TID tadalafil 5 mg PO DAILY 90 days Tobacco use date assessed: 08/24/23 Dental Screening Dental Screen Date: 08/24/23 Did you have a dental visit in the last 12 months?: Yes Did you have a dental problem in the last 6 months where you did not have access to dental care?: No Was dental information given to patient?: Patient has dentist HPI 4M follow up HPI Details Pt is a diabetic, on an SHIRA and a statin. A1C in office today is 8. Microalbumin is up to date. Denies polyuria, polydipsia, and neuropathy. Pt denies any signs and symptoms of hypoglycemia and does know how to correct it. Pt does not any injectables currently. Will start metformin ER 500mg. Pt will work on his diet. Eye exam is up to date. HTN: Blood pressure is stable, managed with lisinopril 2.5mg and nadolol 20mg. Denies chest pain, shortness of breath, headache, dizziness, and blurred vision. Pt c/o thoracic back pain. He reports that this has been present since using a sledgehammer in April. Pt reports increased pain with turning his upper torso. Will order XR. Denies any CP, SOB, radiculopathy. [facility] Medical History Type 2 diabetes mellitus with hyperglycemia Type 2 diabetes mellitus with diabetic polyneuropathy Hyperlipidemia LDL goal <70 Adenocarcinoma of lower esophagus Hx of splenomegaly Male circumcision Constipation Thrombocytopenia Elevated ferritin Esophageal varices Seizure disorder Alcoholic cirrhosis Hepatitis C Anemia Stroke Hepatic cirrhosis Diabetes Esophagus, carcinoma Surgical History Hx of circumcision Hx of colonoscopy Hx of endoscopy Family History Father No problems noted. Mother Diabetes mellitus Social History Household Members: Spouse Household Members Other:: Spouse: Antoni Housing: House Are you a primary aged or disabled care worker to a significant other at home: No Do you presently have visiting nurse or other home services: No Alcohol intake: never Patient Tobacco Use Status: Former Tobacco user Quit Date: 40 years ago Tobacco use type: Cigarette Years Smoked: 10 e-Cigarette/Vaping Use: Never Used Second Hand Smoke Exposure: No Advance Directives Date on File: 01/28/21 service: No Current occupational status: disabled Cognitive needs: No Hearing needs: No Vision needs: No Questionnaire PHQ-9 Over the last 2 weeks, how often have you been bothered by any of the following problems? 1. Little interest or pleasure in doing things: more than half the days 2. Feeling down, depressed, or hopeless: not at all 3. Trouble falling or staying asleep, or sleeping too much: more than half the days 4. Feeling tired or having little energy: more than half the days 5. Poor appetite or overeating: several days 6. Feeling bad about yourself - or that you are a failure or have let yourself or your family down: not at all 7. Trouble concentrating on things, such as reading the newspaper or watching television: not at all 8. Moving or speaking so slowly that other people could have noticed. Or the opposite - being so fidgety or restless that you have been moving around a lot more than usual: several days 9. Thoughts that you would be better off or of hurting yourself in some way: not at all Total score: 8 Depression Screening Interpretation: Negative Depression Screening Done: Yes Source: Developed by Drs. Abhi Prajapati, Sandro Tuttle and colleagues, with an educational pedro from [employer]. Thrive Questionnaire Date Thrive assessed: 08/24/23 I am a: Patient What is your living situation today?: I have a place to live, but I am worried about losing it in the future Within the past 12 months, did the food you bought not last and you didn't have the money to get more?: Never true Within the past 12 months, did you worry whether your food would run out before you got money to buy more?: Never true Do you have trouble paying for medicines?: No Do you have trouble getting transportation to medical appointments?: No Do you have trouble paying your heating and electricity bill?: Yes Do you have trouble taking care of your child, family member or friend?: No Do you have trouble with day-to-day activities such as bathing, preparing meals, shopping, managing finances, etc.?: No Are you currently unemployed and looking for a job?: No Are you interested in more education?: No THRIVE Score: 2 AUDIT C Alcohol Use Questionnaire (AUDIT-C) 1. How often do you have a drink containing alcohol?: Never Total Score: 0 Score Reviewed/Action Taken: Yes BRANDI-7 AMB Questionnaire BRANDI-7 Date BRANDI - 7 assessed: 08/24/23 Feeling nervous, anxious, or on edge: 1 = Several days Not being able to stop or control worryin = Several days Worrying too much about different things: 3 = Nearly every day Trouble relaxin = Several days Being so restless that it is hard to sit still: 1 = Several days Becoming easily annoyed or irritable: 0 = Not at all Feeling afraid as if something awful might happen: 0 = Not at all Total BRANDI-7 score (0-4 normal; 5-9 mild; 10-14 moderate; 15-21 severe): 7 Source: Developed by Drs. Abhi Prajapati, Sandro Tuttle and colleagues, with an educational pedro from [employer]. BRANDI-7 Assessment Billing BRANDI-7 Assessment Tool: BRANDI-7 Assessment 00024 Review of Systems Const Reports as per HPI Physical exam (Primary Care) Vital Signs: Last Vital Signs Pulse 73 08/24/23 13:03 BP 118/72 08/24/23 13:03 Pulse Ox 98 08/24/23 13:03 Oxygen Delivery Method Room Air 08/24/23 13:03 BMI result Body Mass Index 29.8 Tobacco/Smoking Status: Tobacco use Status Tobacco use date assessed 08/24/23 08/24/23 13:13 Patient Tobacco Use Status Former Tobacco user 08/24/23 13:13 Tobacco use type Cigarette 08/24/23 13:13 e-Cigarette/Vaping Use Never Used 08/24/23 13:13 PHQ-9: PHQ-9 Score PHQ-9: Total score 8 08/24/23 13:33 Depression Screening Interpretation: Negative Thrive Assessment: Date of Thrive Assessment Date Thrive assessed 08/24/23 08/24/23 13:17 Const General: cooperative Orientation/consciousness: patient oriented x3 Resp Effort & Inspection: normal respiratory effort Auscultation: clear to auscultation bilaterally Cardio Rate: regular rate Rhythm: regular rhythm Heart sounds: S1 normal heart sound present and S2 normal heart sound present Back/Spine/Pelvis Other: mid thoracic back pain exacerbated with turning upper torso, no pain with palpation Neuro General: patient oriented x3 Extrem Other: bilat feet: + sensation with use of monofilament, feet intact, extensive callous formation to medial plantar aspect of bilat big toes Psych Appearance: grossly normal Mental Status: mental status grossly normal Speech and movement: Normal speech and movement present Affect: normal affect Attitude: cooperative Thought process: Normal thought process present Thought content: Normal thought content present Insight: Good insight present (Psych) Judgement: Good judgement present (Psych) Results AMB Hemoglobin A1c AMB Hemoglobin A1c 8.0 % Last Edit by Hetal Sr CMA on 08/24/23 13: 37 Results Reviewed Results Reviewed: Laboratory Last Values Hgb A1c (Clinic) 8.0 % (4.0-6.0) H 08/24/23 13:36 Assessment and Plan Assessment & Plan (1) Type 2 diabetes mellitus with hyperglycemia: Code(s): E11.65 - Type 2 diabetes mellitus with hyperglycemia Plan: Labs ordered (2) HTN (hypertension): Code(s): I10 - Essential (primary) hypertension Plan: Stable, labs ordered (3) Thoracic back pain: Code(s): M54.6 - Pain in thoracic spine Plan: XR ordered Plan The patient agreed to the use of a medical assistant supervisor for this encounter. Scribed for CLAUDIO Tanner- by Manda Canales medical assistant supervisor, on 08/24/2023 at 13:[address] Orders: Orders Lipid Panel Today E11.65 - Type 2 diabetes mellitus with hyperglycemia, I10 - Essential (primary) hypertension Complete Blood Count Auto Diff Today E11.65 - Type 2 diabetes mellitus with hyperglycemia, I10 - Essential (primary) hypertension Comprehensive [place]. Panel Fast Today E11.65 - Type 2 diabetes mellitus with hyperglycemia, I10 - Essential (primary) hypertension TSH reflex Free T4 Today E11.65 - Type 2 diabetes mellitus with hyperglycemia, I10 - Essential (primary) hypertension UA CC w/rflx Micro + Cult Today E11.65 - Type 2 diabetes mellitus with hyper glycemia, I10 - Essential (primary) hypertension XR thoracic spine 2V Today M54.6 - Pain in thoracic spine AMB Hemoglobin A1c Today E11.65 - Type 2 diabetes mellitus with hyperglycemia Referrals Podiatry Referral E11.65 - Type 2 diabetes mellitus with hyperglycemia Medications: New metformin ER 500 mg PO DAILY 90 days 90 tabs 0RF Coding Level of Care Code Est Pt Level 3 (75939) Diagnoses Type 2 diabetes mellitus with hyperglycemia E11.65 HTN (hypertension) I10 Thoracic back pain M54.6 Additional Codes RBANDI-7 Assessment Billing - BRANDI-7 Assessment Tool: BRANDI-7 Assessment 49660 ([id number])
== END 2023-08-24 13:36 | disposition home or self-care (01) ==
PROVIDERS: PCP Nurse Practitioner Family; Visit Provider Nurse Practitioner Family
DX: E11.65 Type 2 diabetes mellitus with hyperglycemia (principal); I10 Essential (primary) hypertension; M54.6 Pain in thoracic spine
CPT/HCPCS: 83036; 99213

== ENCOUNTER 2023-08-24 13:40 | Outpatient (REF) | payer OTHER, SELFPAY ==
--- NOTE | ~2023-08-24 | XR_ITS ---
EXAMINATION: XR THORACOLUMBAR SPINE CLINICAL INFORMATION: Pain in thoracic spine. COMPARISON: CT chest of 11/25/2019. Chest radiograph of 08/11/2017. TECHNIQUE: 3 views of the thoracic spine. FINDINGS: Redemonstration of posttreatment changes in the upper abdomen with shunt as noted on CT scan of 08/24/2023. Moderate multilevel degenerative changes in the thoracic spine. Degenerative changes on very limited imaging of the cervical spine. Superior endplate concavity of a midthoracic vertebral body was not present on chest radiograph of 08/11/[address] of 11/25/2019. Mild superior and inferior endplate concavities at lower thoracic vertebral bodies were not demonstrated on prior exams in 2019. The bones are diffusely demineralized. XR/XR thoracic spine 2V IMPRESSION: 1. Superior endplate concavity of a midthoracic vertebral body was not present on chest radiograph of 08/11/[address] of 11/25/2019. Mild superior and inferior endplate concavities at lower thoracic vertebral bodies are not demonstrated on prior exams in 2019. 2. Moderate multilevel degenerative changes in the thoracic spine.
== END 2023-08-24 13:41 | disposition home or self-care (01) ==
LOC: HO.HMGCX 13:40
PROVIDERS: PCP Nurse Practitioner Family; Visit Provider Nurse Practitioner Family
DX: M54.6 Pain in thoracic spine (principal)
CPT/HCPCS: 72070

== ENCOUNTER 2023-10-12 15:32 | Outpatient (REF) | payer OTHER, SELFPAY ==
--- NOTE | ~2023-10-12 | MR_ITS ---
EXAMINATION: MR THORACIC SPINE WITHOUT CONTRAST CLINICAL INFORMATION: Abnormal findings on radiograph COMPARISON: Thoracic spine radiographs 08/24/2023 TECHNIQUE: Multiplanar multisequence MR imaging of thoracic spine was done without IV contrast using standard sequences. FINDINGS: There is a subacute T7 upper endplate impaction fracture as queried on prior radiographs with similar approximately 50% height loss and anterior wedging. Associated marrow edema of the T7 vertebral body extending into the bilateral posterior elements. There is prominent fatty marrow signal within the mid to lower thoracic spine and otherwise heterogeneous marrow signal in the imaged lower cervical to midthoracic spine and upper lumbar spine, which can be correlated for history of prior radiation therapy with radiation induced fatty marrow signal change likely on a background of diffuse osteopenia. Normal thoracic kyphosis is preserved. No significant spondylolisthesis multilevel disc desiccation and mild disc height loss. A couple scattered endplate Schmorl's nodes are seen. No disc bulges or herniations. There is no significant spinal canal or neural foraminal stenosis at any level. The thoracic spinal cord is normal in signal and morphology. No epidural fluid collection, hematoma, or mass. No significant abnormalities of the paraspinal musculature. Splenomegaly up to 17 cm. Cirrhotic liver morphology better characterized on prior ultrasound. Soft tissue thickening in the region of the distal esophagus, better characterized on prior PET from 12/03/2017. The descending thoracic aorta is of normal contour and caliber. MR/MR thoracic spine wo con IMPRESSION: 1. Subacute T7 upper endplate impaction fracture with similar approximately 50% height loss and anterior wedging compared to radiograph from 08/24/2023. 2. Marrow signal abnormality throughout the thoracic spinal column as above that be correlated for history of prior radiation therapy with radiation induced fatty marrow signal change in the midthoracic spine likely on a background of diffuse osteopenia. 3. Cirrhotic hepatic morphology and splenomegaly. Soft tissue thickening in the region of the distal esophagus, better characterized on prior PET from 12/03/2017.
== END 2023-10-12 15:33 | disposition home or self-care (01) ==
LOC: HO.MRI 15:32
PROVIDERS: PCP Nurse Practitioner Family; Visit Provider Nurse Practitioner Family
DX: R93.7 Abnormal findings on diagnostic imaging of other parts of musculoskeletal system (principal); M54.6 Pain in thoracic spine
CPT/HCPCS: 72146

== ENCOUNTER 2023-11-05 14:53 | Outpatient (REF) | payer OTHER, SELFPAY ==
--- NOTE | ~2023-11-05 | CT_ITS ---
EXAMINATION: CT THORACIC SPINE WITHOUT CONTRAST CLINICAL INFORMATION: Back pain. Prekyphoplasty. PET/CT November 2017. COMPARISON: Previous thoracic spine MRI September 2023 and x-ray August 2023 TECHNIQUE: Axial images through the thoracic spine without IV contrast. Sagittal and coronal reconstructions on the technologist workstation were performed. This CT examination was performed using dose optimization techniques as appropriate, variously including the following: *Automated exposure control *Adjustment of mA and/or kV according to patient size (this includes techniques or standardized protocols for targeted exams where dose is matched to indication/reason for exam; i.e. extremities or head) *Use of iterative reconstruction technique DLP: 627 mGy-cm FINDINGS: Moderate anterior superior endplate T7 vertebral body compression fracture with approximately 50% loss of height similar to September 2023 MRI. There is a lucency seen surrounding the fracture. There is overall slight increased sclerosis of the vertebral body. There is evidence of osteopenia. There is multilevel degenerative spondylosis and mild disc space narrowing and mid and lower thoracic spine. There is diffuse wall thickening of the mid and distal thoracic esophagus and stranding of the surrounding fat. Prior PET/CT history indicates history of esophageal cancer. There is adjacent medial bilateral lower lobe atelectasis or scarring adjacent to the esophagus, question representing post radiation change. There are embolization coils in the upper abdomen and TIPS shunt. The spleen is enlarged. There are varices. There is no ascites. CT/CT thoracic spine wo IV con IMPRESSION: Stable appearance to the moderate T7 vertebral body compression fracture from September 2023 thoracic spine MRI. There is lucency adjacent to the fracture lines and overall increased sclerosis of the vertebral body. Given history of esophageal cancer, possible pathologic fracture should be considered. Fleischner guidelines were followed.
== END 2023-11-05 14:54 | disposition home or self-care (01) ==
LOC: HO.CT 14:53
PROVIDERS: PCP Nurse Practitioner Family; Visit Provider Nurse Practitioner Family
DX: S22.009A Unspecified fracture of unspecified thoracic vertebra, initial encounter for closed fracture (principal)
CPT/HCPCS: 72128

== ENCOUNTER → 2023-11-19 10:38 | Outpatient (BNV) | payer OTHER, SELFPAY | PROVIDERS: PCP Nurse Practitioner Family; Visit Provider Internal Medicine | DX: Z01.818 Encounter for other preprocedural examination (principal) | CPT/HCPCS: 93010 ==

== ENCOUNTER 2023-11-23 10:50 | Day surgery (SDC) | payer OTHER, SELFPAY ==
--- NOTE | 2023-11-19 | ECG_ITS ---
Test Reason : PREOP Blood Pressure : / mmHG Vent. Rate : 069 BPM Atrial Rate : 069 BPM P-R Int : 192 ms QRS Dur : 082 ms QT Int : 414 ms P-R-T Axes : 050 057 033 degrees QTc Int : 443 ms Normal sinus rhythm Normal ECG When compared with ECG of 13-MAY-2017 20:07, No significant change was found Referred By: Lauryn Wing Electronically Signed By:LEVON AVILES
[2023-11-19 10:04] VITALS: BMI 29.4
[2023-11-19 10:14] VITALS: BP 103/67; PULSE 68; RESP 16; O2SAT 97
--- NOTE | 2023-11-19 10:17 | P.CONAN_ITS ---
Documented by User: Lauryn Wing NP 11/20/23 09:06 HPI - Anesthesia Eval Consult details Narrative: 63yo M for T 7 Kyphoplasty No recent illness No CP/SOB within limits of back pain. Prior to injury (Fall 2022), no limitations with walking, heavy lifting Esophageal CA: s/p chemo and rad years ago. Follows [facility] oncology Cirrhosis (ETOH): s/p TIPS 2018, thrombocytopenia, No ETOH for 40 years, Stroke/seizure x 1 post op tips DM. Does not check POC at home Anesthesia Pre-Procedure Meds Is the patient on any of the following meds?: SGLT2 Inhib PMFSH Active Problems Active Problems: All Active Problems Thoracic spine fracture (Acute) Abnormal x-ray of thoracic spine (Acute) Thoracic back pain (Acute) BMI 30.0-30.9,adult (Acute) Systolic murmur (Acute) Erectile dysfunction associated with type 2 diabetes mellitus (Acute) HTN (hypertension) (Acute) Left knee pain (Acute) Seizures (Acute) Screening PSA (prostate specific antigen) (Acute) Phimosis (Acute) Adenocarcinoma of lower esophagus (Acute) Type 2 diabetes mellitus with hyperglycemia (Acute) Type 2 diabetes mellitus with diabetic polyneuropathy (Acute) Hyperlipidemia LDL goal <70 (Acute) Past Medical History Medical History Wears dentures History of blood transfusion History of GI bleed (~2017) Type 2 diabetes mellitus with hyperglycemia Type 2 diabetes mellitus with diabetic polyneuropathy Hyperlipidemia LDL goal <70 Adenocarcinoma of lower esophagus Hx of splenomegaly Male circumcision Constipation Thrombocytopenia Elevated ferritin Esophageal varices Seizure disorder Alcoholic cirrhosis Hepatitis C Anemia Stroke Hepatic cirrhosis Diabetes Esophagus, carcinoma Family History Family History Father No problems noted. Mother Diabetes mellitus Family history of problems with anesthesia: No Surgical History Surgical History History of surgery on lower extremity (~2003) S/P transjugular intrahepatic portosystemic shunt (~2017) Hx of circumcision Hx of colonoscopy (08/2021) Hx of endoscopy (08/2021) History of Problems with Anesthesia: No Social History Social History Household Members: Spouse Household Members Other:: Spouse: Antoni Housing: House Are you a primary special needs child caregiver to a significant other at home: No Do you presently have visiting nurse or other home services: No Alcohol intake: never Patient Tobacco Use Status: Former Tobacco user Tobacco use type: Cigarette Years Smoked: 10 e-Cigarette/Vaping Use: Never Used Second Hand Smoke Exposure: No Use of substances other than those prescribed or required for medical reasons: No Have you been hit, kicked, punched, or otherwise hurt by someone within the past year? If so, by whom?: No Are you DNR?: No Advance Directives: No Advance Directives Information Provided: Yes Advance Directives on File: Yes Advance Directives Date on File: 01/28/21 Recently lost weight without trying: Yes How much weight loss: 2-13 pounds Eating poorly because of decreased appetite: Yes Nutrition screen score: 4 Nutrition Risks: No Nutritional Risk service: No Current occupational status: disabled Cognitive needs: No Hearing needs: No Vision needs: No Meds Allergies Allergy/AdvReac Type Severity Reaction Status Date / Time No Known Allergies Allergy Verified 11/23/23 12:19 Home Medications ?Medication ?Instructions ?Recorded ?Confirmed ?Last Taken ?Type cholecalciferol (vitamin D3) 25 25 mcg PO DAILY 04/06/20 11/19/23 Unknown History mcg (1,000 unit) tablet (Vitamin D3) lancets 33 gauge #100 ea 08/15/20 11/19/23 Unknown History pen needle, diabetic 31 gauge x #1,200 ea 08/15/20 11/19/23 Unknown History 11/04 levetiracetam 500 mg tablet 500 mg PO TID 01/17/22 11/19/23 Unknown History (Keppra) Exam Height,Weight and Vital Signs: Height 5 ft 7 in Weight 85.1 kg Last Vital Signs Pulse 68 11/19/23 10:14 Resp 16 11/19/23 10:14 BP 103/67 11/19/23 10:14 Pulse Ox 97 11/19/23 10:14 O2 Del Method Room Air 11/19/23 10:14 Pertinent Lab Results Pertinent Lab Results: Laboratory Tests 08/24/23 11/19/23 13:36 08:58 WBC 4.8 Hgb 16.1 Hct 45.7 Plt Count 76 L D Sodium 142 Potassium 4.4 Chloride 110 H Carbon Dioxide 24 BUN 14 Creatinine 0.88 Hgb A1c (Clinic) 8.0 H Calcium 9.0 Total Bilirubin 1.4 H AST 37 ALT 28 Alkaline Phosphatase 98 Total Protein 6.8 Albumin 3.5 Narrative Narrative: EKG 10/2023 Vent. Rate : 069 BPM Atrial Rate : 069 BPM P-R Int : 192 ms QRS Dur : 082 ms QT Int : 414 ms P-R-T Axes : 050 057 033 degrees QTc Int : 443 ms Normal sinus rhythm Normal ECG When compared with ECG of 13-MAY-2017 20:07, No significant change was found Airway Mallampati Class: III TM Dist: >3cm Neck ROM: Full Denture: Upper Partial: Lower Heart: RRR +M Lungs: CTAB Assessment and Plan Assessment Anesthesia Assessment: Anesthesia Plan Discussed and PAT Visit Final Anesthetic Review Family History of Problems with Anesthesia: No History of Problems with Anesthesia: No Documented by User: Annika Guevara MD 11/23/23 14:18 HPI - Anesthesia Eval Anesthesia Pre-Procedure Meds Is the patient on any of the following meds?: SGLT2 Inhib (Last dose 11/20/23) PMFSH Active Problems Active Problems: All Active Problems Thoracic spine fracture (Acute) Abnormal x-ray of thoracic spine (Acute) Thoracic back pain (Acute) Systolic murmur (Acute) Erectile dysfunction associated with type 2 diabetes mellitus (Acute) HTN (hypertension) (Acute) Left knee pain (Acute) Seizures (Acute) several years ago during/following TIPS procedure Screening PSA (prostate specific antigen) (Acute) Phimosis (Acute) Adenocarcinoma of lower esophagus (Acute) Type 2 diabetes mellitus with diabetic polyneuropathy (Acute) Hyperlipidemia LDL goal <70 (Acute) Past Medical History Medical History Wears dentures History of blood transfusion History of GI bleed (~2017) Type 2 diabetes mellitus with hyperglycemia Type 2 diabetes mellitus with diabetic polyneuropathy Hyperlipidemia LDL goal <70 Adenocarcinoma of lower esophagus Hx of splenomegaly Male circumcision Constipation Thrombocytopenia Elevated ferritin Esophageal varices Seizure disorder Alcoholic cirrhosis Hepatitis C Anemia Stroke Hepatic cirrhosis Diabetes Esophagus, carcinoma Family History Family History Father No problems noted. Mother Diabetes mellitus Family history of problems with anesthesia: No Surgical History Surgical History History of surgery on lower extremity (~2003) S/P transjugular intrahepatic portosystemic shunt (~2017) Hx of circumcision Hx of colonoscopy (08/2021) Hx of endoscopy (08/2021) History of Problems with Anesthesia: No Social History Social History Household Members: Spouse Household Members Other:: Spouse: Antoni Housing: House Are you a primary special needs child caregiver to a significant other at home: No Do you presently have visiting nurse or other home services: No Alcohol intake: never Patient Tobacco Use Status: Former Tobacco user Tobacco use type: Cigarette Years Smoked: 10 e-Cigarette/Vaping Use: Never Used Second Hand Smoke Exposure: No Use of substances other than those prescribed or required for medical reasons: No Have you been hit, kicked, punched, or otherwise hurt by someone within the past year? If so, by whom?: No Are you DNR?: No Advance Directives: No Advance Directives Information Provided: Yes Advance Directives on File: Yes Advance Directives Date on File: 01/28/21 Recently lost weight without trying: Yes How much weight loss: 2-13 pounds Eating poorly because of decreased appetite: Yes Nutrition screen score: 4 Nutrition Risks: No Nutritional Risk service: No Current occupational status: disabled Cognitive needs: No Hearing needs: No Vision needs: No Meds Allergies Allergy/AdvReac Type Severity Reaction Status Date / Time No Known Allergies Allergy Verified 11/23/23 12:19 Home Medications ?Medication ?Instructions ?Recorded ?Confirmed ?Last Taken ?Type cholecalciferol (vitamin D3) 25 25 mcg PO DAILY 04/06/20 11/19/23 Unknown History mcg (1,000 unit) tablet (Vitamin D3) lancets 33 gauge #100 ea 08/15/20 11/19/23 Unknown History pen needle, diabetic 31 gauge x #1,200 ea 08/15/20 11/19/23 Unknown History 11/04 levetiracetam 500 mg tablet 500 mg PO TID 01/17/22 11/19/23 Unknown History (Amaris) Exam Height,Weight and Vital Signs: Height 5 ft 7 in Weight 85.1 kg Last Vital Signs Pulse 68 11/19/23 10:14 Resp 16 11/19/23 10:14 BP 103/67 11/19/23 10:14 Pulse Ox 97 11/19/23 10:14 O2 Del Method Room Air 11/19/23 10:14 Vital Signs Temp Pulse Resp BP Pulse Ox O2 Del Method 11/23/23 12:29 97.8 F 73 16 115/76 97 Room Air Pertinent Lab Results Pertinent Lab Results: Laboratory Tests Lab Results 11/23/23 11/23/23 Range/Units 11:29 12:28 WBC 5.3 (4.8-10.8) X10*3/uL RBC 4.88 (4.60-5.80) X10*6/uL Hgb 16.0 (14.0-18.0) g/dl Hct 44.3 (42.0-52.0) % MCV 90.8 (80.0-98.0) fL MCH 32.8 (27.0-33.0) pg MCHC 36.1 H (31.0-36.0) g/dl RDW 14.6 (11.0-16.0) % Plt Count 87 L (160-400) X10*3/uL MPV 9.6 (9.4-12.4) fL Absolute Nucleated RBC 0.000 (0.0-0.012) X10*3/uL Nucleated RBC % (auto) 0.0 (0.0-0.2) /100WBC POC Glucose 215 H (60-115) mg/dL 08/24/23 11/19/23 13:36 08:58 WBC 4.8 Hgb 16.1 Hct 45.7 Plt Count 76 L D Sodium 142 Potassium 4.4 Chloride 110 H Carbon Dioxide 24 BUN 14 Creatinine 0.88 Hgb A1c ([facility]) 8.0 H Calcium 9.0 Total Bilirubin 1.4 H AST 37 ALT 28 Alkaline Phosphatase 98 Total Protein 6.8 Albumin 3.5 Airway Mallampati Class: III TM Dist: >3cm Neck ROM: Full Denture: Upper Partial: Lower Loose/Missing/Broken Teeth: Yes (Dentures. Denies broken or loose teeth) Assessment and Plan Assessment Anesthesia Assessment: Anesthesia Plan Discussed and Chart Reviewed Final Anesthetic Review Family History of Problems with Anesthesia: No History of Problems with Anesthesia: No NPO: Yes ASA Class: III Final Preanesthetic Review: No Changes in Pt Med Stat, Meds/Allgs Chart Reviewed, Consent Obtained/Reviewed and Anes Risks/Benef Reviewed Patient Risk: Intermediate Procedure Risk: Low Assessment/Block/Sedation in SS: Assess/Block/Sedation-SS Anesthetic Plan Anesthetic Plan: MAC: and TIVA Disposition: Standard PACU
[2023-11-23] VITALS (8 sets, daily range): BP systolic 98–121; BP diastolic 64–85; PULSE 62–76; RESP 16–20; TEMP 36.1–36.6; O2SAT 97–99; BMI 28.5
--- NOTE | ~2023-11-23 | IR_ITS ---
EXAMINATION: IR THORACIC VERTEBROPLASTY IR LUMBAR VERTEBROPLASTY CLINICAL INFORMATION: Osteoporosis. Compression fractures. Patient remains in severe pain. COMPARISON: MRI images of the lumbar and lower thoracic spine performed at [facility] on 02/02/2023 were reviewed FLUOROSCOPY TIME: 7.4 minutes DOSE AREA PRODUCT: 226 uGy-m2 (microgray-meter squared) TECHNIQUE: Prior to the procedure the patient was seen and reviewed and the nature of the procedure with attendant risks and benefits explained to the patient. Following detailed discussion a decision was made to proceed with the kyphoplasty. Consent for the procedure was given. The patient was brought to the angio suite and placed in a prone position. Fluoroscopy in AP and lateral projections were used for image guidance throughout the procedure. Anesthesia/sedation was provided by an anesthesiologist as separately recorded. Preprocedure imaging demonstrates the known fractures at T7 . Appropriate access points were marked on the skin using fluoroscopy. The back was prepped and draped in the usual sterile manner. Following injection of 1% Lidocaine with bicarbonate and also 2 cc. each side of 0.5% Bupivicaine for local anesthesia and using biplane fluoroscopy a Kyphx One Step needle was advanced to the right side of the vertebral body. Satisfactory position was confirmed by fluoroscopy. A biopsy was then performed. The specimen was deemed to be satisfactory and placed in formalin. [ ] The Trochar was removed and a drill was advanced anteriorly. A pusher was inserted and the anterior cortex probed to confirm no perforation of the anterior cortex. Having done this we then performed the same procedure on the patient?s left side. Having done this [ ] Kyphx Inflatable Bone Tamp balloons were inserted through the right and left cannulae and advanced under fluoroscopic guidance into appropriate positions in the vertebral body. The balloons were inflated. Having done this, the balloons were gently removed. The bone voids created were filled with 5] ml of bone cement. The bone cement is Kyphx-HVR. Once the bone cement was hardened the cannula were removed. Sterile dressings were applied. The patient tolerated the procedure well with no immediate complications. FINDINGS: Acute compression fracture of T7 vertebral body Technically successful kyphoplasty treatment and biopsy. IR/IR kyphoplasty thoracic IMPRESSION: Acute compression fracture of T7 treated with kyphoplasty. T7 biopsy
[2023-11-23 11:40] LABS: Hematocrit 44.3 % (42.0-52.0); Mean Corpuscular HGB Conc 36.1 g/dl (31.0-36.0); Mean Corpuscular Hemoglobin 32.8 pg (27.0-33.0); Mean Corpuscular Volume 90.8 fL (80.0-98.0); Mean Platelet Volume 9.6 fL (9.4-12.4); Red Blood Count 4.88 X10*6/uL (4.60-5.80); Red Cell Distribution Width 14.6 % (11.0-16.0); White Blood Count 5.3 X10*3/uL (4.8-10.8)
[2023-11-23 11:42] LABS: Platelet Count 87 X10*3/uL (160-400)
[2023-11-23] MEDS: Lactated Ringers 1,000 ML 100 ML IVCONT (12:32)
[2023-11-23 12:38] LABS: Glucose, Whole Blood 215 mg/dL (60-115)
[2023-11-23] MEDS: fentaNYL citrate/PF 100 MCG/2 ML VIAL 25 MCG IVPUSH (15:20)
[2023-11-23] MEDS: oxyCODONE HCl Immed Release 5 MG TABLET PO (15:22)
== END 2023-11-23 16:43 | disposition home or self-care (01) ==
PROVIDERS: Nurse Practitioner; Student in an Organized Health Care Education/Training Program; PCP Nurse Practitioner Family; Visit Provider Nurse Practitioner Family
DX: M80.88XA Other osteoporosis with current pathological fracture, vertebra(e), initial encounter for fracture (principal); E11.9 Type 2 diabetes mellitus without complications; I10 Essential (primary) hypertension; Z79.899 Other long term (current) drug therapy
CPT/HCPCS: 22513; 36415; 82947; 85027; 88307; 88311; 93005; J0665; J0690; J1596; J2250; J2704; J3010; Q9967

== ENCOUNTER → 2023-11-23 13:01 | Outpatient (BNV) | payer OTHER, SELFPAY | PROVIDERS: PCP Nurse Practitioner Family; Visit Provider Student in an Organized Health Care Education/Training Program | DX: M80.08XA Age-related osteoporosis with current pathological fracture, vertebra(e), initial encounter for fracture (principal) | CPT/HCPCS: 22513 ==

== ENCOUNTER 2023-12-23 10:03 | Outpatient (AMB) | payer OTHER, SELFPAY ==
--- NOTE | 2023-12-23 10:06 | A.OFFPC_ITS ---
Vital Signs 12/23/23 10:17 Weight 184 lb BP 118/68 Blood Pressure Location Rt brachial Position Sitting Pulse 76 Pulse Source Pulse Oximeter Pulse Oximetry (%) 98 Oxygen Delivery Method Room Air Intake Visit Reasons: HTN F/U Intake Note: Patient here for HTN. Allergies No Known Allergies Allergy (Verified 12/23/23 10:17) Tobacco use date assessed: 08/24/23 Dental Screening Dental Screen Date: 08/24/23 HPI HTN F/U HPI Details Pt recently underwent a kyphoplasty 1 month ago. He reports ongoing pain to his thoracic spine. He reports the pain is better from previous, but still has a lot of discomfort. HTN: Blood pressure is stable, managed with lisinopril 2.5mg and nadolol 20mg. Denies chest pain, shortness of breath, headache, dizziness, and blurred vision. Pt is a diabetic, on an SHIRA and a statin. Last A1C was 8.0. Microalbumin is up to date. Denies polyuria, polydipsia, and neuropathy. Pt denies any signs and symptoms of hypoglycemia and does know how to correct it. Will increase metformin from 500mg daily to 500mg bid. [facility] Medical History Wears dentures History of blood transfusion History of GI bleed (~2017) Type 2 diabetes mellitus with hyperglycemia Type 2 diabetes mellitus with diabetic polyneuropathy Hyperlipidemia LDL goal <70 Adenocarcinoma of lower esophagus Hx of splenomegaly Male circumcision Constipation Thrombocytopenia Elevated ferritin Esophageal varices Seizure disorder Alcoholic cirrhosis Hepatitis C Anemia Stroke Hepatic cirrhosis Diabetes Esophagus, carcinoma Surgical History History of surgery on lower extremity (~2003) S/P transjugular intrahepatic portosystemic shunt (~2017) Hx of circumcision Hx of colonoscopy (08/2021) Hx of endoscopy (08/2021) Family History Father No problems noted. Mother Diabetes mellitus Social History Household Members: Spouse Household Members Other:: Spouse: Antoni Housing: House Are you a primary professional healthcare representative to a significant other at home: No Do you presently have visiting nurse or other home services: No Alcohol intake: never Patient Tobacco Use Status: Former Tobacco user Tobacco use type: Cigarette Years Smoked: 10 e-Cigarette/Vaping Use: Never Used Second Hand Smoke Exposure: No Advance Directives Date on File: 01/28/21 service: No Current occupational status: disabled Cognitive needs: No Hearing needs: No Vision needs: No Questionnaire Thrive Questionnaire Date Thrive assessed: 08/24/23 BRANDI-7 AMB Questionnaire BRANDI-7 Date BRANDI - 7 assessed: 08/24/23 Source: Developed by Drs. Abhi Prajapati, Scarlett Forbes, Sandro Moyer and colleagues, with an educational pedro from [employer]. Review of Systems Const Reports as per HPI Physical exam (Primary Care) Vital Signs: Last Vital Signs Pulse 76 12/23/23 10:17 BP 118/68 12/23/23 10:17 Pulse Ox 98 12/23/23 10:17 Oxygen Delivery Method Room Air 12/23/23 10:17 Tobacco/Smoking Status: Tobacco use Status Tobacco use date assessed 08/24/23 12/23/23 10:07 Patient Tobacco Use Status Former Tobacco user 12/23/23 10:07 Tobacco use type Cigarette 12/23/23 10:07 e-Cigarette/Vaping Use Never Used 12/23/23 10:07 Thrive Assessment: Date of Thrive Assessment Date Thrive assessed 08/24/23 12/23/23 10:07 Const General: cooperative Orientation/consciousness: patient oriented x3 Resp Other: lungs fairly clear Effort & Inspection: normal respiratory effort Cardio Rate: regular rate Rhythm: regular rhythm Heart sounds: S1 normal heart sound present and S2 normal heart sound present Neuro General: patient oriented x3 Psych Appearance: grossly normal Mental Status: mental status grossly normal Speech and movement: Normal speech and movement present Affect: normal affect Attitude: cooperative Thought process: Normal thought process present Thought content: Normal thought content present Insight: Good insight present (Psych) Judgement: Good judgement present (Psych) Assessment and Plan Assessment & Plan (1) HTN (hypertension): Code(s): I10 - Essential (primary) hypertension Plan: stable (2) Thoracic spine fracture: Code(s): S22.009A - Unspecified fracture of unspecified thoracic vertebra, initial enc ounter for closed fracture Plan: lidocaine patches sent (3) Erectile dysfunction associated with type 2 diabetes mellitus: Code(s): E11.69 - Type 2 diabetes mellitus with other specified complication; N52.1 - Erectile dysfunction due to diseases classified elsewhere Plan: increased metformin from daily to bid Plan The patient agreed to the use of a biomedical engineering aide for this encounter. Scribed for CLAUDIO Tanner-GUY by Manda Canales biomedical engineering aide, on 12/23/2023 at 10:30 EST. Orders: Orders Hemoglobin A1c Today I10 - Essential (primary) hypertension, S22.009A - Unspecified fracture of unspecified thoracic vertebra, initial encounter for closed fracture Medications: New lidocaine 5% leave on most painful area for up to 12 hrs 1 patch topical DAILY 30 ea 0RF Changed From metformin ER 500 mg PO DAILY 90 days 90 tabs 0RF To metformin ER 500 mg PO BID 90 days 180 tabs 0RF Coding Level of Care Code Est Pt Level 3 (42840) Diagnoses HTN (hypertension) I10 Thoracic spine fracture S22.009A Erectile dysfunction associated with type 2 diabetes mellitus E11.69; N52.1
[2023-12-23 10:17] VITALS: BP 118/68; PULSE 76; O2SAT 98
== END 2023-12-23 10:46 | disposition home or self-care (01) ==
PROVIDERS: PCP Nurse Practitioner Family; Visit Provider Nurse Practitioner Family
DX: I10 Essential (primary) hypertension (principal); S22.009A Unspecified fracture of unspecified thoracic vertebra, initial encounter for closed fracture; E11.69 Type 2 diabetes mellitus with other specified complication; N52.1 Erectile dysfunction due to diseases classified elsewhere
CPT/HCPCS: 99213

== ENCOUNTER 2024-01-01 07:44 | Outpatient (REF) | payer OTHER, SELFPAY ==
[2024-01-01 10:30] LABS: MANUAL DIFF FLAG NO
[2024-01-01 10:32] LABS: Basophils Absolute Auto 0.1 X10*3/uL (0.0-0.2); Basophils Percent Auto 0.8 % (0-2); Eosinophils Absolute Auto 0.3 X10*3/uL (0.0-0.4); Eosinophils Percent Auto 3.9 % (0-4); Hematocrit 43.7 % (42.0-52.0); Hemoglobin 15.9 g/dl (14.0-18.0); Imm Gran Abs Auto 0.01 X10*3/uL (0.00-0.03); Imm Gran Pct Auto 0.1 % (0.0-0.4); Lymphocytes Absolute Auto 1.3 X10*3/uL (1.2-4.9); Lymphocytes Percent Auto 17.7 % (20-40); Mean Corpuscular HGB Conc 36.4 g/dl (31.0-36.0); Mean Corpuscular Hemoglobin 33.1 pg (27.0-33.0); Mean Corpuscular Volume 90.9 fL (80.0-98.0); Monocytes Absolute Auto 0.7 X10*3/uL (0.1-1.2); Monocytes Percent Auto 9.8 % (2-11); Neutrophils Absolute Auto 4.9 x10*3/uL (2.0-8.3); Neutrophils Percent Auto 67.7 % (45-73); Red Blood Count 4.81 X10*6/uL (4.60-5.80); Red Cell Distribution Width 15.3 % (11.0-16.0); White Blood Count 7.3 X10*3/uL (4.8-10.8)
[2024-01-01 10:34] LABS: Platelet Count 96 X10*3/uL (160-400)
[2024-01-01 10:35] LABS: Alanine Aminotransferase 25 U/L (0-40); Albumin Level 3.5 g/dL (3.5-5.0); Alkaline Phosphatase 92 U/L (39-117); Aspartate Amino Transferase 34 U/L (5-37); Bilirubin Direct 0.5 mg/dL (0.0-0.5); Bilirubin Total 1.6 mg/dL (0.0-1.0); Total Protein 6.8 g/dL (6.5-8.0)
[2024-01-01 10:55] LABS: Alanine Aminotransferase 25 U/L (0-40); Albumin Level 3.4 g/dL (3.5-5.0); Alkaline Phosphatase 93 U/L (39-117); Anion Gap 12 (12-20); Aspartate Amino Transferase 34 U/L (5-37); Bilirubin Total 1.6 mg/dL (0.0-1.0); Blood Urea Nitrogen 15 mg/dL (9-16); Calcium 9.3 mg/dL (8.4-10.2); Carbon Dioxide 22 mmol/L (22-29); Chloride 110 mmol/L (96-108); Cholesterol 137 mg/dL (<200); Estimated Glomerular Filt Rate > 60; Glucose Fasting 125 mg/dL (60-99); HDL Cholesterol 52 mg/dL (>40); LDL Cholesterol Calculated 70 mg/dL (<100); Potassium 3.9 mmol/L (3.3-5.1); Sodium 140 mmol/L (135-145); Total Protein 6.8 g/dL (6.5-8.0); Triglycerides 78 mg/dL (<150)
[2024-01-01 10:57] LABS: Appearance Urine Clear; Color Urine Dark Yellow; Glucose Urine UA >=1000 mg/dL (Negative); Leukocyte Esterase Urine Negative (Negative); Nitrite Urine Negative (Negative); Specific Gravity - Urine >= 1.030 (1.005-1.025); UMIC TRIGGER UACC YES; Urine Blood Negative (Negative); Urine Ketones Trace mg/dL (Negative); Urine Protein Negative (Neg-Trace)
[2024-01-01 11:01] LABS: TSH reflex Free T4 1.72 uIU/mL (0.32-4.0)
[2024-01-01 11:25] LABS: Estimated Average Glucose 128 mg/dL; Hemoglobin A1c % 6.1 % (<6.0)
[2024-01-01 11:27] LABS: Bacteria Urine None Seen (None Seen); Hyaline Casts Urine 0-2 /LPF (0-2); RBC Urine 0-2 /HPF (0-2); Squamous Epithelial Cell Urine 0-2 /HPF (0-2); UACC Culture Trigger YES
== END 2024-01-01 07:45 | disposition home or self-care (01) ==
LOC: HO.HMGCLDS 07:44
PROVIDERS: PCP Nurse Practitioner Family; Visit Provider Internal Medicine Gastroenterology
DX: E11.65 Type 2 diabetes mellitus with hyperglycemia (principal); I10 Essential (primary) hypertension; S22.009A Unspecified fracture of unspecified thoracic vertebra, initial encounter for closed fracture; K74.69 Other cirrhosis of liver; R82.90 Unspecified abnormal findings in urine
CPT/HCPCS: 36415; 80053; 80061; 80076; 81001; 81003; 82248; 83036; 84443; 85025; 87086

== ENCOUNTER 2024-01-04 07:56 | Outpatient (REF) | payer OTHER, SELFPAY ==
--- NOTE | ~2024-01-04 | US_ITS ---
EXAMINATION: US ABDOMEN COMPLETE CLINICAL INFORMATION: Cirrhosis of liver, (assess TIPS). COMPARISON: Ultrasound abdomen complete 10/21/2022 and 09/10/2021. CT chest and abdomen 11/25/2019. TECHNIQUE: Real-time imaging of the abdominal viscera. Technically extremely limited study secondary to bowel gas. FINDINGS: PANCREAS: Largely obscured by overlapping bowel gas. ABDOMINAL AORTA: The proximal, mid, and distal segments are normal in caliber. INFERIOR VENA CAVA: Visualized portions are normal. LIVER: The liver is normal in size. The liver contour is normal. There is heterogeneous, coarse liver parenchymal echogenicity. No focal hepatic lesion. There is no intrahepatic biliary duct dilatation seen. The patient's TIPS stent appears grossly patent. GALLBLADDER: Normal. The gallbladder is physiologically distended without evidence of stones, sludge, polyps, wall thickening or pericholecystic fluid. COMMON BILE DUCT: Normal in caliber measuring 0.2 cm in diameter. RIGHT KIDNEY: Normal. No hydronephrosis. No renal calculi or focal parenchymal lesions. The kidney measures 12.2 cm in maximum dimension. LEFT KIDNEY: Normal. No hydronephrosis. No renal calculi or focal parenchymal lesions. The kidney measures 11.5 cm in maximum dimension. SPLEEN: No focal finding. The spleen measures 17.8 cm in maximum dimension. FREE FLUID: None. US/US abdomen complete IMPRESSION: 1. Consistent with the provided history of cirrhosis, there is heterogeneous, coarse hepatic echotexture. No focal hepatic mass or biliary ductal dilatation is seen. 2. The patient's TIPS stent appears grossly patent. 3. There is splenomegaly. 4. Technically limited ultrasound examination of the pancreas.
== END 2024-01-04 07:57 | disposition home or self-care (01) ==
LOC: HO.US 07:56
PROVIDERS: PCP Nurse Practitioner Family; Visit Provider Internal Medicine Gastroenterology
DX: K74.69 Other cirrhosis of liver (principal)
CPT/HCPCS: 76700

== ENCOUNTER 2024-01-19 08:22 | Day surgery (SDC) | payer OTHER, SELFPAY ==
--- NOTE | 2024-01-18 08:58 | HO.ANESPROP2 ---
Documented by User: Lauryn Wing NP 01/18/24 09:01 HPI - Anesthesia Eval Consult details Narrative: 63yo M for Upper Endoscopy with Balloon Dilitation s/p kypho 11/2023 with TIVA Esophageal CA: s/p chemo and rad years ago. Follows [facility] Cirrhosis (ETOH): s/p TIPS 2018, thrombocytopenia, No ETOH for 40 years, Stroke/seizure x 1 post op tips DM. Does not check POC at home Anesthesia Pre-Procedure Meds Is the patient on any of the following meds?: SGLT2 Inhib PMFSH Active Problems Active Problems: All Active Problems Thoracic spine fracture (Acute) Abnormal x-ray of thoracic spine (Acute) Thoracic back pain (Acute) BMI 30.0-30.9,adult (Acute) Systolic murmur (Acute) Erectile dysfunction associated with type 2 diabetes mellitus (Acute) HTN (hypertension) (Acute) Left knee pain (Acute) Seizures (Acute) Screening PSA (prostate specific antigen) (Acute) Phimosis (Acute) Adenocarcinoma of lower esophagus (Acute) Type 2 diabetes mellitus with hyperglycemia (Acute) Type 2 diabetes mellitus with diabetic polyneuropathy (Acute) Hyperlipidemia LDL goal <70 (Acute) Past Medical History Medical History Wears dentures History of blood transfusion History of GI bleed (~2017) Type 2 diabetes mellitus with hyperglycemia Type 2 diabetes mellitus with diabetic polyneuropathy Hyperlipidemia LDL goal <70 Adenocarcinoma of lower esophagus Hx of splenomegaly Male circumcision Constipation Thrombocytopenia Elevated ferritin Esophageal varices Seizure disorder Alcoholic cirrhosis Hepatitis C Anemia Stroke Hepatic cirrhosis Diabetes Esophagus, carcinoma Family History Family History Father No problems noted. Mother Diabetes mellitus Family history of problems with anesthesia: No Surgical History Surgical History History of surgery on lower extremity (~2003) S/P transjugular intrahepatic portosystemic shunt (~2017) Hx of circumcision Hx of colonoscopy (08/2021) Hx of endoscopy (08/2021) History of Problems with Anesthesia: No Social History Social History Household Members: Spouse Household Members Other:: Spouse: Antoni Housing: House Are you a primary care management coordinator to a significant other at home: No Do you presently have visiting nurse or other home services: No Alcohol intake: never Patient Tobacco Use Status: Former Tobacco user Tobacco use type: Cigarette Years Smoked: 10 e-Cigarette/Vaping Use: Never Used Second Hand Smoke Exposure: No Are you DNR?: No Advance Directives: No Advance Directives Information Provided: Yes Advance Directives Date on File: 01/28/21 Nutrition Risks: No Nutritional Risk service: No Current occupational status: disabled Cognitive needs: No Hearing needs: No Vision needs: No Meds Allergies Allergy/AdvReac Type Severity Reaction Status Date / Time No Known Allergies Allergy Verified 01/19/24 08:50 Home Medications ?Medication ?Instructions ?Recorded ?Confirmed ?Last Taken ?Type cholecalciferol (vitamin D3) 25 25 mcg PO DAILY 04/06/20 01/19/24 Unknown History mcg (1,000 unit) tablet (Vitamin D3) lancets 33 gauge #100 ea 08/15/20 01/19/24 Unknown History pen needle, diabetic 31 gauge x #1,200 ea 08/15/20 01/19/24 Unknown History 11/04 levetiracetam 500 mg tablet 500 mg PO TID 01/17/22 01/19/24 Unknown History (Keppra) Exam Pertinent Lab Results Pertinent Lab Results: Laboratory Tests 01/01/24 01/01/24 08:00 08:08 WBC 7.3 Hgb 15.9 Hct 43.7 Plt Count 96 L Sodium 140 Potassium 3.9 Chloride 110 H Carbon Dioxide 22 BUN 15 Creatinine 0.78 Narrative Narrative: EKG 10/2023 Vent. Rate : 069 BPM Atrial Rate : 069 BPM P-R Int : 192 ms QRS Dur : 082 ms QT Int : 414 ms P-R-T Axes : 050 057 033 degrees QTc Int : 443 ms Normal sinus rhythm Normal ECG When compared with ECG of 13-MAY-2017 20:07, No significant change was found Assessment and Plan Assessment Anesthesia Assessment: Chart Reviewed Final Anesthetic Review Family History of Problems with Anesthesia: No History of Problems with Anesthesia: No Documented by User: Fernando Henry MD 01/19/24 14:21 [facility] Past Medical History Medical History Wears dentures History of blood transfusion History of GI bleed (~2017) Type 2 diabetes mellitus with hyperglycemia Type 2 diabetes mellitus with diabetic polyneuropathy Hyperlipidemia LDL goal <70 Adenocarcinoma of lower esophagus Hx of splenomegaly Male circumcision Constipation Thrombocytopenia Elevated ferritin Esophageal varices Seizure disorder Alcoholic cirrhosis Hepatitis C Anemia Stroke Hepatic cirrhosis Diabetes Esophagus, carcinoma Family History Family History Father No problems noted. Mother Diabetes mellitus Surgical History Surgical History History of surgery on lower extremity (~2003) S/P transjugular intrahepatic portosystemic shunt (~2017) Hx of circumcision Hx of colonoscopy (08/2021) Hx of endoscopy (08/2021) Social History Social History Household Members: Spouse Household Members Other:: Spouse: Antoni Housing: House Are you a primary care management coordinator to a significant other at home: No Do you presently have visiting nurse or other home services: No Alcohol intake: never Patient Tobacco Use Status: Former Tobacco user Tobacco use type: Cigarette Years Smoked: 10 e-Cigarette/Vaping Use: Never Used Second Hand Smoke Exposure: No Are you DNR?: No Advance Directives: No Advance Directives Information Provided: Yes Advance Directives Date on File: 01/28/21 Nutrition Risks: No Nutritional Risk service: No Current occupational status: disabled Cognitive needs: No Hearing needs: No Vision needs: No Meds Allergies Allergy/AdvReac Type Severity Reaction Status Date / Time No Known Allergies Allergy Verified 01/19/24 08:50 Home Medications ?Medication ?Instructions ?Recorded ?Confirmed ?Last Taken ?Type cholecalciferol (vitamin D3) 25 25 mcg PO DAILY 04/06/20 01/19/24 Unknown History mcg (1,000 unit) tablet (Vitamin D3) lancets 33 gauge #100 ea 08/15/20 01/19/24 Unknown History pen needle, diabetic 31 gauge x #1,200 ea 08/15/20 01/19/24 Unknown History 11/04 levetiracetam 500 mg tablet 500 mg PO TID 01/17/22 01/19/24 Unknown History (Keseelnara) Exam Airway Mallampati Class: II TM Dist: >3cm Neck ROM: Full Denture: Upper Loose/Missing/Broken Teeth: Yes Assessment and Plan Assessment Anesthesia Assessment: Anesthesia Plan Discussed and Chart Reviewed Final Anesthetic Review NPO: Yes ASA Class: III Final Preanesthetic Review: No Changes in Pt Med Stat, Meds/Allgs Chart Reviewed, Consent Obtained/Reviewed and Anes Risks/Benef Reviewed Patient Risk: Intermediate Procedure Risk: Low Anesthetic Plan Anesthetic Plan: MAC: Disposition: Standard PACU
[2024-01-19 08:47] VITALS: BMI 28.5
[2024-01-19] MEDS: Lactated Ringers 1,000 ML 100 ML IVCONT (09:05)
[2024-01-19 09:28] VITALS: BP 124/75; PULSE 73; RESP 18; TEMP 36.6; O2SAT 97
[2024-01-19 09:34] LABS: Glucose, Whole Blood 169 mg/dL (60-115)
--- NOTE | 2024-01-19 10:30 | MHC.SHP ---
Pre-Procedural Eval Section A - 24 Hr Update-Section A only Date of Service: 01/19/24 Section B - Complete if H&P > 30 days Chief Complaint: dysphagia, Details of Present Illness: see H&P no changes Relevant Family History (Specify if Yes): No Relevant Social History: None Present Medications: see Short Stay Collaborative assessment Medical History: No relevant PMH Allergies: Allergies Allergy/AdvReac Type Severity Reaction Status Date / Time No Known Allergies Allergy Verified 01/19/24 08:50 Review of Systems Sugical H&P ROS: Negative: Constitution, Cardiovascular, Respiratory, Neurological, Psychiatric, Hem-Onc, Allergic/Immunologic, Gastrointestinal, Genitourinary, Musculoskeletal, Integumentary, Endocrine and Eyes/Ears/Nose/Throat Exam Surgical H&P Exam: Normal: HEENT, Normal: Heart, Normal: Lungs, Normal: Extremities, Normal: Abdomen, Normal: Skin and Normal: Neurological Plan Diagnosis/Plan: Unchanged I have reviewed the history and physical and performed a pertinent physical examination on my patient. No changes have occurred unless specified. Time Spent With Patient Time: Total time managing care of this patient today ____ minutes.
[2024-01-19 11:22] VITALS: BP 121/58; PULSE 78; RESP 16; TEMP 36.5; O2SAT 95
[2024-01-19 11:32] VITALS: BP 114/66; PULSE 80; RESP 18; O2SAT 95
--- NOTE | 2024-01-19 11:43 | OP_ITS ---
DATE OF SERVICE: 01/19/2024 SURGEON: Benjamin Suggs MD INDICATIONS: Esophageal adenocarcinoma and dysphagia. PREOPERATIVE DIAGNOSIS: POSTOPERATIVE DIAGNOSIS: PROCEDURE PERFORMED: Upper endoscopy with biopsy. ESTIMATED BLOOD LOSS: COMPLICATIONS: ANESTHESIA: Monitored anesthesia care. ASSISTANTS: SPECIMENS: DESCRIPTION OF PROCEDURE: A history and physical was performed. The risks and benefits of the procedure were explained to the patient and informed consent was obtained. The patient was placed in the left lateral decubitus position. The Olympus video gastroscope was introduced into the esophagus, stomach, and duodenum. Examination was performed and the scope was removed. He tolerated the procedure well and was returned to recovery area in stable condition. FINDINGS: Esophagus: The distal esophagus showed a 5 cm area of ulceration with masslike effect consistent with possible recurrence of his adenocarcinoma. Biopsies were carefully obtained from the distal esophagus. There were no esophageal varices identified. Stomach: The stomach showed no evidence of masses or ulcers. Retroflexed examination showed no mass lesion extending below the EG junction. Duodenum: The bulb and 2nd portion were normal. IMPRESSION: Esophageal ulcerations/mass consistent with possible recurrence of adenocarcinoma. RECOMMENDATION: Follow up the biopsy results. MD GUY Tejada/JUAN CARLOS / [id number]
[2024-01-19 11:45] VITALS: BP 118/68; PULSE 75; RESP 18; TEMP 36.4; O2SAT 95
== END 2024-01-19 11:15 | disposition home or self-care (01) ==
LOC: HO.SSS 08:22
PROVIDERS: Pathology Anatomic Pathology & Clinical Pathology; PCP Nurse Practitioner Family; Visit Provider Internal Medicine Gastroenterology
PROC: (CPT 43239; principal; 2024-01-19 10:50)
DX: C15.5 Malignant neoplasm of lower third of esophagus (principal); R13.19 Other dysphagia; K74.69 Other cirrhosis of liver; E11.9 Type 2 diabetes mellitus without complications; I85.00 Esophageal varices without bleeding; B19.20 Unspecified viral hepatitis C without hepatic coma; M81.0 Age-related osteoporosis without current pathological fracture; Z86.73 Personal history of transient ischemic attack (TIA), and cerebral infarction without residual deficits; Z92.3 Personal history of irradiation; Z79.84 Long term (current) use of oral hypoglycemic drugs; Z79.899 Other long term (current) drug therapy; Z87.891 Personal history of nicotine dependence; Z98.890 Other specified postprocedural states
CPT/HCPCS: 43239; 36415; 82947; 88305; 88313; 88342; 88360; J2704

== ENCOUNTER 2024-02-17 11:56 | Outpatient (REF) | payer OTHER, SELFPAY ==
--- NOTE | ~2024-02-17 | CT_ITS ---
EXAMINATION: CT CHEST, ABDOMEN AND PELVIS WITH CONTRAST CLINICAL INFORMATION: Recurrent carcinoma of the esophagus. COMPARISON: CT chest, abdomen and pelvis 11/25/2019. TECHNIQUE: Multidetector volumetric imaging was performed from the thoracic inlet through the pubic symphysis following administration of 85 mL of Omnipaque 350. Sagittal and coronal reformatted images were obtained on the technologist's workstation. This CT examination was performed using dose optimization techniques as appropriate, variously including the following: *Automated exposure control *Adjustment of mA and/or kV according to patient size (this includes techniques or standardized protocols for targeted exams where dose is matched to indication/reason for exam; i.e. extremities or head) *Use of iterative reconstruction technique DLP: 104 mGy-cm FINDINGS: CHEST: Lungs: The lungs are clear without focal opacity or nodule. There is no evidence of pulmonary metastatic disease. Mediastinum: There is marked thickening of the distal esophagus beginning below the level of the itzel extending down to the GE junction. This appears increased when compared with the 12/15/2019 study. No mediastinal or hilar lymphadenopathy is seen. The central vascular structures are unremarkable. Coronary Artery Calcium: None. Pericardium/Pleura: No significant effusion. No pleural mass or thickening. Chest Wall/Axilla: Unremarkable. ABDOMEN/PELVIS: Peritoneal Space: No significant free air or free fluid identified. Liver, Gallbladder, Biliary Tree: The liver has cirrhotic morphology with a nodular border. Patent TIPS (see below). No focal hepatic lesion or biliary ductal dilatation is present. The gallbladder is contracted but otherwise unremarkable with no evidence of radiopaque gallstones, gallbladder wall thickening, or obvious pericholecystic inflammatory changes. Pancreas: Unremarkable. Spleen: Spleen is enlarged at 17 cm. Adrenal Glands: Unremarkable. Kidneys and Ureters: The kidneys are normal in size, shape, and attenuation. No hydronephrosis, hydroureter, or calculi seen. No perinephric stranding. Bladder: Unremarkable. Gastrointestinal Tract: The small and large bowel are unremarkable aside from some scattered colonic diverticula. The appendix is unremarkable. Abdominal Wall: No significant hernia is appreciated. Lymph Nodes: No lymphadenopathy. Vascular: A TIPS is present and appears to be patent. Packed embolization coils are noted around the level of the hepatic artery and carlos hepatis. Some embolization coils are also in the left upper quadrant. The aorta and iliofemoral vessels appear normal. The IVC appears unremarkable. PELVIC VISCERA: The prostate and seminal vesicles are unremarkable. OSSEUS STRUCTURES: Mild degenerative changes are noted in the spine. No bony destructive lesions are seen. Status post kyphoplasty T7. CT/CT abdomen pelvis w IV con IMPRESSION: 1. Marked thickening of the distal esophagus beginning below the level of the itzel down to the GE junction suspicious for recurrent esophageal carcinoma. 2. No evidence of metastatic disease in the chest, abdomen or pelvis. 3. Cirrhotic liver with patent TIPS and splenomegaly. Fleischner guidelines were followed. Electronically signed by: Michael Segal MD 02/18/2024 09:53 AM EDT
[2024-02-17] MEDS: iohexoL 350 MG/ML 100 ML INFUS..BTL 85 ML IV (15:01)
== END 2024-02-17 11:57 | disposition home or self-care (01) ==
LOC: HO.CT 11:56
PROVIDERS: PCP Nurse Practitioner Family; Visit Provider Internal Medicine Medical Oncology
DX: C15.5 Malignant neoplasm of lower third of esophagus (principal)
CPT/HCPCS: 71260; 74177; Q9967

== ENCOUNTER 2024-03-29 15:19 | Outpatient (AMB) | payer OTHER, SELFPAY ==
--- NOTE | 2024-03-29 15:30 | MHC.PC.OV ---
Vital Signs 03/29/24 15:31 Height 5 ft 7 in Weight 177 lb 4 oz BMI 27.8 BP 120/74 Blood Pressure Location Lt brachial Position Sitting Pulse 79 Pulse Source Pulse Oximeter Pulse Oximetry (%) 98 Intake Visit Reasons: 3-4 month follow up Intake Note: pt is here for 3 month f.up Allergies No Known Allergies Allergy (Verified 03/29/24 17:38) Medication List - Last Reconciled 03/29/24 by MOLLY Whitehead atorvastatin 10 mg PO BEDTIME baclofen 5 mg PO TID PRN 30 days baclofen 10 mg PO DAILY PRN 90 days cholecalciferol (vitamin D3) (Vitamin D3) 25 mcg PO DAILY empagliflozin (Jardiance) 25 mg PO DAILY ferrous sulfate (Iron (ferrous sulfate)) 325 mg PO BID lancets As directed levetiracetam (Keppra) 500 mg PO TID lidocaine 5% 1 patch topical DAILY lisinopril 2.5 mg PO DAILY metformin ER 500 mg PO BID 90 days nadolol 20 mg PO DAILY 90 days ondansetron 8 mg PO Q8H pantoprazole 40 mg PO DAILY 90 days pen needle, diabetic As directed repaglinide 0.5 mg PO TID tadalafil 5 mg PO DAILY 90 days Tobacco use date assessed: 08/24/23 Dental Screening Dental Screen Date: 08/24/23 HPI 3-4 month follow up HPI Details diabetes: pt is on a SHIRA and a statin. Denies any polyuria, polydipsia, or neuropathy. Pt reports he will make his own eye exam appt. pt reports not checking his sugar often, but does watch his diet. He knows the s/s of hypoglycemia and how to correct it. He is currently following with GI and Oncology for ongoing adenocarcinoma of the lower esophagus. He reports feeling well and doing well. [facility] Medical History Wears dentures History of blood transfusion History of GI bleed (~2018) Type 2 diabetes mellitus with hyperglycemia Type 2 diabetes mellitus with diabetic polyneuropathy Hyperlipidemia LDL goal <70 Adenocarcinoma of lower esophagus Hx of splenomegaly Male circumcision Constipation Thrombocytopenia Elevated ferritin Esophageal varices Seizure disorder Alcoholic cirrhosis Hepatitis C Anemia Stroke Hepatic cirrhosis Diabetes Esophagus, carcinoma Surgical History (Reviewed 03/29/24 @ 17:35 by Nikhil Gray [facility] History of surgery on lower extremity (~2003) S/P transjugular intrahepatic portosystemic shunt (~2017) Hx of circumcision Hx of colonoscopy (08/2021) Hx of endoscopy (08/2021) Family History (Reviewed 03/29/24 @ 17:35 by CLAUDIO [facility]) Father No problems noted. Mother Diabetes mellitus Social History (Reviewed 03/29/24 @ 17:35 by [facility] Household Members: Spouse Household Members Other:: Spouse: Antoni Housing: House Are you a primary child care education coordinator to a significant other at home: No Do you presently have visiting nurse or other home services: No Alcohol intake: never Patient Tobacco Use Status: Former Tobacco user Tobacco use type: Cigarette Years Smoked: 10 e-Cigarette/Vaping Use: Never Used Second Hand Smoke Exposure: No Advance Directives Date on File: 01/28/21 service: No Current occupational status: disabled Cognitive needs: No Hearing needs: No Vision needs: No Questionnaire PHQ-9 Over the last 2 weeks, how often have you been bothered by any of the following problems? 13634 - PHQ-9 Billing: Patient declined-do not bill Source: Developed by Drs. Abhi Prajapati, Sandro Tuttle and colleagues, with an educational pedro from [employer]. Thrive Questionnaire Date Thrive assessed: 08/24/23 BRANDI-7 AMB Questionnaire BRANDI-7 Date BRANDI - 7 assessed: 08/24/23 Source: Developed by Scarlett Page Kurt Kroenke and colleagues, with an educational pedro from [employer]. BRANDI-7 Assessment Billing BRANDI-7 Assessment Tool: pt declined-do not bill Physical exam (Primary Care) Vital Signs: Last Vital Signs Pulse 79 03/29/24 15:31 BP 120/74 03/29/24 15:31 Pulse Ox 98 03/29/24 15:31 BMI result Body Mass Index 27.8 Tobacco/Smoking Status: Tobacco use Status Tobacco use date assessed 08/24/23 03/29/24 15:30 Patient Tobacco Use Status Former Tobacco user 03/29/24 15:30 Tobacco use type Cigarette 03/29/24 15:30 e-Cigarette/Vaping Use Never Used 03/29/24 15:30 Thrive Assessment: Date of Thrive Assessment Date Thrive assessed 08/24/23 03/29/24 15:30 Const General: cooperative, comfortable and no acute distress Resp Effort & Inspection: normal respiratory effort Auscultation: clear to auscultation bilaterally Cardio Rate: regular rate Rhythm: regular rhythm Heart sounds: S1 normal heart sound present, S2 normal heart sound present and no murmurs Extrem Other: Feet intact bilat, good sensation with use of monofilament. Psych Appearance: grossly normal Speech and movement: Normal speech and movement present Affect: normal affect Attitude: cooperative Thought process: Normal thought process present Thought content: Normal thought content present Insight: Good insight present (Psych) Judgement: Good judgement present (Psych) Results AMB Hemoglobin A1c AMB Hemoglobin A1c 6.7 % Last Edit by Funmilayo Pelaez CMA on 03/29/24 16:15 Results Reviewed Results Reviewed: Laboratory Last Values Hgb A1c (Clinic) 6.7 % (4.0-6.0) H 03/29/24 16:13 Coding Level of Care Code Est Pt Level 3 (74711) Diagnoses Screening PSA (prostate specific antigen) Z12.5 Diabetes E11.9 Assessment & Plan Assessment & Plan (1) Screening PSA (prostate specific antigen): Code(s): Z12.5 - Encounter for screening for malignant neoplasm of prostate Category: Medical Plan: PSA order entered (2) Diabetes: Comment: IDDM Code(s): E11.9 - Type 2 diabetes mellitus without complications Category: Medical Plan: Encourage patient to get his labs drawn Orders: Orders AMB Hemoglobin A1c Today E11.65 - Type 2 diabetes mellitus with hyperglycemia Lipid Panel Today E11.9 - Type 2 diabetes mellitus without complications Prostate Specific Antigen Scr Today Z12.5 - Encounter for screening for malignant neoplasm of prostate
[2024-03-29 15:31] VITALS: BP 120/74; PULSE 79; O2SAT 98; BMI 27.8
== END 2024-03-29 17:11 | disposition home or self-care (01) ==
PROVIDERS: PCP Nurse Practitioner Family; Visit Provider Nurse Practitioner Family
DX: Z12.5 Encounter for screening for malignant neoplasm of prostate (principal); E11.9 Type 2 diabetes mellitus without complications; E11.65 Type 2 diabetes mellitus with hyperglycemia

== ENCOUNTER → 2024-03-29 15:19 | Outpatient (BNVA) | payer OTHER, SELFPAY | PROVIDERS: PCP Nurse Practitioner Family; Visit Provider Nurse Practitioner Family | DX: E11.9 Type 2 diabetes mellitus without complications (principal) | CPT/HCPCS: 83036; 99212 ==

== ENCOUNTER 2024-05-10 06:19 | Outpatient (REF) | payer OTHER, SELFPAY ==
[2024-05-10 11:05] LABS: Cholesterol 109 mg/dL (<200); HDL Cholesterol 53 mg/dL (>40); LDL Cholesterol Calculated 44 mg/dL (<100); Prostate Specific Antigen Scr 0.36 ng/mL (<0.05-4.0); Triglycerides 63 mg/dL (<150)
== END 2024-05-10 06:20 | disposition home or self-care (01) ==
LOC: HO.HMGCLDS 06:19
PROVIDERS: PCP Nurse Practitioner Family; Visit Provider Nurse Practitioner Family
DX: E11.9 Type 2 diabetes mellitus without complications (principal); Z12.5 Encounter for screening for malignant neoplasm of prostate
CPT/HCPCS: 36415; 80061; 84153

== ENCOUNTER 2024-06-16 09:15 | Inpatient (IN) | payer OTHER, SELFPAY ==
--- NOTE | ~2024-06-16 | CT_ITS ---
EXAMINATION: CT ABDOMEN AND PELVIS WITH CONTRAST CLINICAL INFORMATION: Presurgical planning for gastrostomy tube COMPARISON: CT from 02/17/2024 TECHNIQUE: Multidetector volumetric images were obtained from the superior aspect of the liver through the pubic symphysis following administration 85 mL of Omnipaque 350 intravenous contrast. Sagittal and coronal reformatted images were obtained on the technologist's workstation. Oral contrast: No This CT examination was performed using dose optimization techniques as appropriate, variously including the following: *Automated exposure control *Adjustment of mA and/or kV according to patient size (this includes techniques or standardized protocols for targeted exams where dose is matched to indication/reason for exam; i.e. extremities or head) *Use of iterative reconstruction technique DLP: 493 mGy-cm FINDINGS: LUNG BASES: The visualized lung bases are unremarkable. LIVER, GALLBLADDER, AND BILIARY TREE: Liver is small and nodular consistent with underlying cirrhosis. No discrete mass lesion is seen. There is a TIPS stent extending from the main portal vein into the right hepatic vein which appears patent. The gallbladder is unremarkable with no evidence of radiopaque gallstones, gallbladder wall thickening, or obvious pericholecystic inflammatory changes. There is trace perihepatic ascites . There are multiple embolization coils in the the retroperitoneum extending towards the GE junction consistent with prior variceal embolization. PANCREAS: Diffusely atrophied SPLEEN: Enlarged with a long length measuring 16.5 cm. ADRENAL GLANDS: Unremarkable. KIDNEYS AND URETERS: The kidneys are normal in size, shape, and attenuation. No hydronephrosis, hydroureter, or calculi seen. No perinephric stranding. BLADDER: Unremarkable. GASTROINTESTINAL TRACT: There is marked circumferential edematous changes of the visualized distal esophagus and a possible internal filling defect. Cannot exclude esophageal mass or internal debris. Cannot exclude the residual esophageal varices. The stomach is decompressed. No large gastric varices are seen. The small and large bowel are unremarkable. The appendix is unremarkable. ABDOMINAL WALL: No significant hernia is appreciated. LYMPH NODES: Normal. VASCULAR: Unremarkable. PELVIC VISCERA: The prostate and seminal vesicles are unremarkable. There is a small amount of simple ascites in the pelvis OSSEOUS STRUCTURES: Unremarkable. CT/CT abdomen pelvis w IV con IMPRESSION: 1. Cirrhotic liver with patent TIPS stent. 2. Splenomegaly. 3. Small amount of ascites. 4. Marked circumferential edematous changes of the visualized distal esophagus with possible internal filling defect. Cannot exclude esophageal mass or internal debris. Cannot exclude residual esophageal varices. 5. Multiple embolization coils in the retroperitoneum extending towards the GE junction consistent with prior variceal embolization. Fleischner guidelines were followed. Electronically signed by: Cody Palacios MD 06/16/2024 08:55 PM EST
--- NOTE | ~2024-06-16 | XR_ITS ---
EXAMINATION: XR CHEST CLINICAL INFORMATION: CP COMPARISON: CT chest 02/17/2024. TECHNIQUE: 2 views of the chest were obtained. FINDINGS: The cardiac, hilar, and mediastinal contours are normal. The lungs are clear bilaterally. There is no pneumothorax or pleural effusion. There is kyphoplasty cement in T7. A TIPS catheter is noted overlying the liver. There is coil material in the epigastric region. No acute bony abnormalities. XR/XR chest 2V IMPRESSION: No active pulmonary disease. Electronically signed by: Cheo Herrera MD 06/16/2024 10:08 AM [facility]
[2024-06-16 09:39] VITALS: BP 116/80; PULSE 105; RESP 16; TEMP 37; O2SAT 99; BMI 24.7
--- NOTE | 2024-06-16 09:51 | ECG_ITS ---
Test Reason : ABD PAIN Blood Pressure : / mmHG Vent. Rate : 095 BPM Atrial Rate : 095 BPM P-R Int : 174 ms QRS Dur : 078 ms QT Int : 374 ms P-R-T Axes : 058 065 017 degrees QTc Int : 469 ms Undetermined rhythm Cannot rule out Anterior infarct , age undetermined Abnormal ECG When compared with ECG of 19-NOV-2023 10:38, Current undetermined rhythm precludes rhythm comparison, needs review Referred By: Holly Rangel Electronically Signed By:Bao Chambers
--- NOTE | 2024-06-16 10:00 | ED.WEAKNESS ---
HPI - Weakness General Chief complaint: Abdominal Pain Stated complaint: unable to eat weight loss sent in by pcp Time Seen by Provider: 06/16/24 09:51 Source: patient, family and old records reviewed Mode of arrival: ambulatory Limitations: no limitations History of Present Illness ED Provider: ELISA HOROWIZT Narrative: 63 yo male with PMH of DM, HTN, HLD, seizures, currently on therapy for recurrent esophageal adenocarcinoma last infusion pembrolizumab on 06/[address] Crawford, has hx of esophageal XRT changes has been scoped by Ifeanyi in past he has been having c/o burning pain difficulty swallowing lives off liquid and pudding but has pain every time. Has lost 20+lbs in 6 months or less. He notes he did not eat this AM. He and his are agreeable to PEG tube at this point and were referred to come to the ED by Dr. Ty DWYER Complaint: generalized weakness (weight loss) Onset (ago): month(s) Duration: progressively worsening Location: generalized Migration: none Severity: moderate Relieving factors: none Exacerbating factors: movement Context: recent illness Associated symptoms: loss of appetite and other (fatigue, weakness, weight loss. ) Related Data Home Medications ?Medication ?Instructions ?Recorded ?Confirmed cholecalciferol (vitamin D3) 25 25 mcg PO DAILY 04/06/20 03/29/24 mcg (1,000 unit) tablet (Vitamin D3) lancets 33 gauge #100 ea 08/15/20 03/29/24 pen needle, diabetic 31 gauge x #1,200 ea 08/15/20 03/29/2411/04 levetiracetam 500 mg tablet 500 mg PO TID 01/17/22 03/29/24 (Keppra) Previous Rx's ?Medication ?Instructions ?Recorded baclofen 5 mg tablet 5 mg PO TID PRN muscle spasm 30 04/19/20 days #90 tabs tadalafil 5 mg tablet 5 mg PO DAILY sexual activity 06/24/22 days #90 tabs ferrous sulfate 325 mg (65 mg 325 mg PO BID #60 tabs 11/06/23 iron) tablet (Iron (ferrous sulfate)) lidocaine 5 % topical patch 1 patch topical DAILY #30 ea 12/23/23 empagliflozin 25 mg tablet 25 mg PO DAILY #90 tabs 01/26/24 (Jardiance) repaglinide 0.5 mg tablet 0.5 mg PO TID #270 tabs 02/17/24 ondansetron 8 mg disintegrating 8 mg PO Q8H #60 tabs 02/25/24 tablet atorvastatin 10 mg tablet 10 mg PO BEDTIME #90 tabs 03/11/24 lisinopril 2.5 mg tablet 2.5 mg PO DAILY #90 tabs 03/11/24 pantoprazole 40 mg tablet,delayed 40 mg PO DAILY 90 days #90 tabs 03/11/24 release nadolol 20 mg tablet 20 mg PO DAILY 90 days #90 tabs 04/24/24 baclofen 10 mg tablet 10 mg PO DAILY PRN muscle spasm 90 05/02/24 days #90 tabs metformin 500 mg tablet,extended 500 mg PO BID 90 days #180 tabs 05/15/24 release 24 hr Allergies Allergy/AdvReac Type Severity Reaction Status Date / Time No Known Allergies Allergy Verified 06/16/24 09:46 Review of Systems Review of Systems: Constitutional : No Fever, No Chills, pos Fatigue, pos weight loss ENT/Mouth : No sore throat, No Rhinorrhea Eyes: No Eye Pain, No Swelling, No Redness Cardiovascular : No Chest Pain, No SOB, No Dyspnea on Exertion Respiratory : No Cough, No Sputum Gastrointestinal : No Nausea, No Vomiting, No Diarrhea, No abdominal Pain Genitourinary : No Dysuria, No Urinary Frequency, No Hematuria, Musculoskeletal : No joint pain, No Myalgias, No Joint Swelling Skin : No Skin Lesions, No rash Neuro : pos Weakness, No Numbness, No Dizziness, no Headache All other systems reviewed and are negative PMFSH Past Medical History Attestation statement: The following information was validated with the patient. Source: old records reviewed Medical History Wears dentures History of blood transfusion History of GI bleed (~2017) Type 2 diabetes mellitus with hyperglycemia Type 2 diabetes mellitus with diabetic polyneuropathy Hyperlipidemia LDL goal <70 Adenocarcinoma of lower esophagus Hx of splenomegaly Male circumcision Constipation Thrombocytopenia Elevated ferritin Esophageal varices Seizure disorder Alcoholic cirrhosis Hepatitis C Anemia Stroke Hepatic cirrhosis Diabetes Esophagus, carcinoma Surgical History History of surgery on lower extremity (~2003) S/P transjugular intrahepatic portosystemic shunt (~2018) Hx of circumcision Hx of colonoscopy (08/2021) Hx of endoscopy (08/2021) Family History Family History Father No problems noted. Mother Diabetes mellitus Social History Social History Household Members: Spouse Household Members Other:: Spouse: Antoni Housing: House Are you a primary primary care md to a significant other at home: No Do you presently have visiting nurse or other home services: No Alcohol intake: never Patient Tobacco Use Status: Former Tobacco user Tobacco use type: Cigarette Years Smoked: 10 e-Cigarette/Vaping Use: Never Used Second Hand Smoke Exposure: No Advance Directives: No Advance Directives Information Provided: No Advance Directives Date on File: 01/28/21 service: No Current occupational status: disabled Cognitive needs: No Hearing needs: No Vision needs: No Physical Exam Vital Signs: Vital Signs: Last Vital Signs Temp 98.6 F 06/16/24 09:39 Pulse 93 06/16/24 10:11 Resp 15 06/16/24 10:11 BP 108/71 06/16/24 10:11 Pulse Ox 99 06/16/24 10:11 O2 Del Method Room Air 06/16/24 10:11 BMI result Body Mass Index 24.7 Appearance: Alert. Oriented X3. No acute distress. Thin appearing Eyes: Pupils equal, round and reactive to light. ENT: Pharynx dry MM Neck: Normal inspection. Neck supple. CVS: Normal heart rate and rhythm. Pulses normal. Respiratory: No respiratory distress. Breath sounds normal. Abdomen: Soft and nontender. Skin: Skin warm and dry. pale skin color. Normal skin turgor. Extremities: No lower extremity edema. No calf ttp Neuro: Oriented X 3. No motor deficit. No sensory deficit. Medications Administered Generic Name Dose Route Start Last Admin Trade Name Freq PRN Reason Stop Dose Admin Lactated Ringer's 1,000 mls @ 100 mls/hr 06/16/24 10:45 06/16/24 10:49 Lr IVCONT 100 mls/hr .Q10H KINGA Administration Medical Decision Making Medical Decision Making MDM Narrative: 63 yo male with PMH of DM, HTN, HLD, seizures, currently on therapy for recurrent esophageal adenocarcinoma last infusion pembrolizumab on 06/[address] Crawford, has hx of esophageal XRT changes here with weight loss, FTT, poor PO intake unable to eat today at this time patient will need basic labs, EKG, CXR and will consult GI. He is to be started on IVF infusion he has been NPO. Differential Diagnosis Differential Diagnoses: The differential diagnosis associated with the presentation includes weakness, FTT, esophageal mass Admission/Observation Consideration of admission/observation: Escalation of care including admission/observation considered admit for EGD and possible feeding tube Consult Healthcare Provider Management of the patient was discussed with: Hospitalist (will admit) and Architectural Technologist Dr. Suggs aware will put him on the schedule tomorrow Lab Data MDM Lab Attestation statement: I reviewed the patient's lab results. 06/16/24 10:07 06/16/24 10:07 Labs: Lab Results 06/16/24 Range/Units 10:07 WBC 7.8 (4.8-10.8) X10*3/uL RBC 5.19 (4.60-5.80) X10*6/uL Hgb 16.8 (14.0-18.0) g/dl Hct 47.2 (42.0-52.0) % MCV 90.9 (80.0-98.0) fL MCH 32.4 (27.0-33.0) pg MCHC 35.6 (31.0-36.0) g/dl RDW 14.6 (11.0-16.0) % Plt Count 95 L D (160-400) X10*3/uL MPV 10.0 (9.4-12.4) fL Immature Gran % (Auto) 0.3 (0.0-0.4) % Neut % (Auto) 75.5 H (45-73) % Lymph % (Auto) 14.0 L (20-40) % [place] % (Auto) 7.4 (2-11) % Eos % (Auto) 1.9 (0-4) % Baso % (Auto) 0.9 (0-2) % Lymph # (Auto) 1.1 L (1.2-4.9) X10*3/uL [place] # (Auto) 0.6 (0.1-1.2) X10*3/uL Eos # (Auto) 0.2 (0.0-0.4) X10*3/uL Baso # (Auto) 0.1 (0.0-0.2) X10*3/uL Abs Immat Gran (auto) 0.02 (0.00-0.03) X10*3/uL Absolute Neuts (auto) 5.9 (2.0-8.3) x10*3/uL Absolute Nucleated RBC 0.000 (0.0-0.012) X10*3/uL Nucleated RBC % (auto) 0.0 (0.0-0.2) /100WBC PT 13.0 H (10.9-12.4) SEC INR 1.1 (0.9-1.1) Sodium 144 (135-145) mmol/L Potassium 3.4 (3.3-5.1) mmol/L Chloride 109 H (96-108) mmol/L Carbon Dioxide 31 H (22-29) mmol/L Anion Gap 7 L (12-20) BUN 18 H (9-16) mg/dL Creatinine 0.87 (0.5-1.4) mg/dL Estim Creat Clear Calc 81.2 Estimated GFR > 60 Random Glucose 237 H (60-115) mg/dL Calcium 9.1 (8.4-10.2) mg/dL Magnesium 1.8 (1.6-2.6) mg/dL Total Bilirubin 2.2 H (0.0-1.0) mg/dL Direct Bilirubin 0.7 H (0.0-0.5) mg/dL AST 44 H (5-37) U/L ALT 37 (0-40) U/L Alkaline Phosphatase 99 (39-117) U/L Troponin I High Sens < 2.7 (<3.5-35.0) ng/L Total Protein 6.9 (6.5-8.0) g/dL Albumin 3.5 (3.5-5.0) g/dL Lipase 22 (8-78) U/L Influenza Type A (PCR) NEGATIVE (Negative) Influenza Type B (PCR) NEGATIVE (Negative) RSV RNA Qual (PCR) NEGATIVE (Negative) SARS-CoV-2 RNA (RT-PCR) NEGATIVE (Negative) Independent Interpretation I performed an independent interpretation of an: EKG and Plain X-Ray (normal ) Interpretation: Rate: 95 Rhythm: NSR [place]: normal Normal P waves. Normal ANDREW. Normal QRS complex. ST T wave : no VICTOR HUGO, normal qTC: 469 prior studies: no acute ischemia The study has been interpreted contemporaneously by me. . Radiology Impression Discussion of test interpretation with radiology: I have reviewed the radiologist's reading. Independent Historian Clinical information obtained from an independent historian. History obtained from or confirmed by: Spouse External Record Review External record reviewed: Inpatient record and Outpatient record Discharge Plan Discharge Clinical Impression: Esophageal mass, Adult failure to thrive Patient Disposition: Admitted As Inpatient Prescriptions: No Action baclofen 5 mg tablet 5 mg PO TID PRN (Reason: muscle spasm) 30 Days Qty: 90 1RF Jardiance 25 mg tablet 25 mg PO DAILY Qty: 90 1RF repaglinide 0.5 mg tablet 0.5 mg PO TID Qty: 270 1RF pantoprazole 40 mg tablet,delayed release (DR/EC) 40 mg PO DAILY 90 Days Qty: 90 1RF lisinopril 2.5 mg tablet 2.5 mg PO DAILY Qty: 90 1RF atorvastatin 10 mg tablet 10 mg PO BEDTIME Qty: 90 1RF nadolol 20 mg tablet 20 mg PO DAILY 90 Days Qty: 90 1RF baclofen 10 mg tablet 10 mg PO DAILY PRN (Reason: muscle spasm) 90 Days Qty: 90 0RF metformin 500 mg tablet extended release 24 hr 500 mg PO BID 90 Days Qty: 180 1RF cholecalciferol (vitamin D3) [Vitamin D3] 25 mcg (1,000 unit) Tablet 25 mcg PO DAILY levetiracetam [Keppra] 500 mg tablet 500 mg PO TID ferrous sulfate [Iron (ferrous sulfate)] 325 mg (65 mg iron) Tablet 325 mg PO BID Qty: 60 2RF ondansetron 8 mg Tablet,Disintegrating 8 mg PO Q8H Qty: 60 3RF (DME) pen needle, diabetic 31 gauge x 5/16 needle See Rx Instructions subcut QID Qty: 1200 Rx Instructions: As directed (DME) lancets 33 gauge misc See Rx Instructions topical QID Qty: 100 Rx Instructions: As directed lidocaine 5 % adhesive patch,medicated 1 patch topical DAILY Qty: 30 0RF Rx Instructions: leave on most painful area for up to 12 hrs tadalafil 5 mg tablet 5 mg PO DAILY 90 Days Qty: 90 1RF Print Language: Latvian
[2024-06-16 10:11] VITALS: BP 108/71; PULSE 93; RESP 15; O2SAT 99
[2024-06-16 10:15] LABS: MANUAL DIFF FLAG NO
[2024-06-16 10:25] LABS: Basophils Absolute Auto 0.1 X10*3/uL (0.0-0.2); Basophils Percent Auto 0.9 % (0-2); Eosinophils Absolute Auto 0.2 X10*3/uL (0.0-0.4); Eosinophils Percent Auto 1.9 % (0-4); Hematocrit 47.2 % (42.0-52.0); Hemoglobin 16.8 g/dl (14.0-18.0); Imm Gran Abs Auto 0.02 X10*3/uL (0.00-0.03); Imm Gran Pct Auto 0.3 % (0.0-0.4); Lymphocytes Absolute Auto 1.1 X10*3/uL (1.2-4.9); Mean Corpuscular HGB Conc 35.6 g/dl (31.0-36.0); Mean Corpuscular Hemoglobin 32.4 pg (27.0-33.0); Mean Corpuscular Volume 90.9 fL (80.0-98.0); Monocytes Absolute Auto 0.6 X10*3/uL (0.1-1.2); Monocytes Percent Auto 7.4 % (2-11); Neutrophils Absolute Auto 5.9 x10*3/uL (2.0-8.3); Neutrophils Percent Auto 75.5 % (45-73); Red Blood Count 5.19 X10*6/uL (4.60-5.80); Red Cell Distribution Width 14.6 % (11.0-16.0); White Blood Count 7.8 X10*3/uL (4.8-10.8)
[2024-06-16 10:28] LABS: Platelet Count 95 X10*3/uL (160-400)
[2024-06-16 10:30] LABS: INTERNATIONAL NORM RATIO 1.1 (0.9-1.1)
[2024-06-16 10:37] LABS: Alanine Aminotransferase 37 U/L (0-40); Albumin Level 3.5 g/dL (3.5-5.0); Alkaline Phosphatase 99 U/L (39-117); Anion Gap 7 (12-20); Aspartate Amino Transferase 44 U/L (5-37); Bilirubin Direct 0.7 mg/dL (0.0-0.5); Bilirubin Total 2.2 mg/dL (0.0-1.0); Blood Urea Nitrogen 18 mg/dL (9-16); Calcium 9.1 mg/dL (8.4-10.2); Carbon Dioxide 31 mmol/L (22-29); Chloride 109 mmol/L (96-108); Creatinine Clr Calc Pharmacy 81.2; Estimated Glomerular Filt Rate > 60; Glucose Random 237 mg/dL (60-115); Lipase 22 U/L (8-78); Magnesium 1.8 mg/dL (1.6-2.6); Potassium 3.4 mmol/L (3.3-5.1); Sodium 144 mmol/L (135-145); Total Protein 6.9 g/dL (6.5-8.0)
[2024-06-16 10:48] LABS: Troponin-I High Sensitivity < 2.7 ng/L (<3.5-35.0)
[2024-06-16] MEDS: Lactated Ringers 1,000 ML 100 ML IVCONT (10:49)
[2024-06-16 10:53] LABS: Influenza A PCR NEGATIVE (Negative); Influenza B PCR NEGATIVE (Negative); Resp Syncy Virus RNA Qual PCR NEGATIVE (Negative); SARS COV2 PCR INHOUSE NEGATIVE (Negative)
[2024-06-16 12:24] LABS: Glucose, Whole Blood 194 mg/dL (60-115)
--- NOTE | 2024-06-16 12:43 | PHA.MEDREC ---
Addendum entered by [place] RPh 06/16/24 12:56: Reviewed by [facility]. Original Note: Pharmacy Consult ? Medication Reconciliation Pharmacy has completed the medication reconciliation. Spoke with patient and . Patients had list of medications in his pocket but him nor his knew how he was taking his medications, I utilized claims to confirm his directions. He stated he has not taken his medications in over a week due to his Chemo treatments.
--- NOTE | 2024-06-16 13:16 | P.HPHOSP_ITS ---
History of Present Illness Date of Service: 06/16/24 Chief Complaint: dysphagia/odynophagia The patient is a 62-year-old male with a past medical history of adenocarcinoma of the lower esophagus, type 2 diabetes, cirrhosis status post TIPS procedure, seizure disorder on Keppra who presents to the emergency room with progressive dysphagia and odynophagia. The patient is actively receiving chemotherapy for his known adenocarcinoma of the esophagus. He reports that over the last several weeks he has lost 10-20 lb as he has been unable to consume anything by mouth. Reports dysphagia to even liquids. He reports odynophagia to liquids as well. He states at times he has regurgitated his medications which are taken the day before. Due to ongoing difficulty with this, the patient was advised to come to the emergency room by his oncologist. In the ED the patient's blood work showed signs of dehydration with an elevated BUN and elevated bicarb indicative of contraction alkalosis. The patient has been given 1 L of IV fluids. He has been seen in consultation by his telephone interceptor operator, Dr. Suggs with plans for PEG tube insertion. For possibility of surgical feeding tube insertion remains large given his presenting dysphagia even to liquids. Review of Systems 2 Review of Systems: Negative except HPI/interval history. [facility] Medical History Wears dentures History of blood transfusion History of GI bleed (~2017) Type 2 diabetes mellitus with hyperglycemia Type 2 diabetes mellitus with diabetic polyneuropathy Hyperlipidemia LDL goal <70 Adenocarcinoma of lower esophagus Hx of splenomegaly Male circumcision Constipation Thrombocytopenia Elevated ferritin Esophageal varices Seizure disorder Alcoholic cirrhosis Hepatitis C Anemia Stroke Hepatic cirrhosis Diabetes Esophagus, carcinoma Family History Father No problems noted. Mother Diabetes mellitus Surgical History History of surgery on lower extremity (~2003) S/P transjugular intrahepatic portosystemic shunt (~2017) Hx of circumcision Hx of colonoscopy (08/2021) Hx of endoscopy (08/2021) Social History Household Members: Spouse Household Members Other:: Spouse: Antoni Housing: House Are you a primary manager wound care to a significant other at home: No Do you presently have visiting nurse or other home services: No Alcohol intake: never Patient Tobacco Use Status: Former Tobacco user Tobacco use type: Cigarette Years Smoked: 10 e-Cigarette/Vaping Use: Never Used Second Hand Smoke Exposure: No Advance Directives: No Advance Directives Information Provided: No Advance Directives Date on File: 01/28/21 service: No Current occupational status: disabled Cognitive needs: No Hearing needs: No Vision needs: No Meds Allergies Allergy/AdvReac Type Severity Reaction Status Date / Time No Known Allergies Allergy Verified 06/16/24 09:46 Active Medications: Current Medications Acetaminophen (Acetaminophen 325 Mg Tablet) 650 mg PO Q6H PRN PRN Reason: Pain, Mild 1-3,fever,headache Lactated Ringer's (Lr) 1,000 mls @ 100 mls/hr IVCONT .Q10H KINGA Last Admin: 06/16/24 10:49 Dose: 100 mls/hr Ondansetron HCl (Ondansetron Hcl 4 Mg/2 Ml Vial) 4 mg IVPUSH Q8H PRN PRN Reason: Nausea and Vomiting Sodium Chloride (0.9 % Sodium Chloride Flush 3 Ml Syringe) 3 ml IVFLUSH QSHIFT [facility] Home Medications ?Medication ?Instructions ?Recorded ?Confirmed ?Last Taken ?Type cholecalciferol (vitamin D3) 25 25 mcg PO DAILY 04/06/20 06/16/24 1 Week Ago History mcg (1,000 unit) tablet (Vitamin ~06/09/24 D3) lancets 33 gauge #100 ea 08/15/20 03/29/24 Unknown History pen needle, diabetic 31 gauge x #1,200 ea 08/15/20 03/29/24 Unknown History 11/04 levetiracetam 250 mg tablet 250 mg PO BID 06/16/24 06/16/24 1 Week Ago History ~06/09/24 ondansetron 8 mg disintegrating 8 mg PO Q8H PRN Nausea And Vomiting 06/16/24 06/16/24 1 Week Ago History tablet ~06/09/24 pantoprazole 40 mg tablet,delayed 40 mg PO DAILY@0630 06/16/24 06/16/24 1 Week Ago History release ~06/09/24 Physical Exam 2 Vital Signs and Narrative: Vital Signs: Last Vital Signs Temp 98.6 F 06/16/24 09:39 Pulse 93 06/16/24 10:11 Resp 15 06/16/24 10:11 BP 108/71 06/16/24 10:11 Pulse Ox 99 06/16/24 10:11 O2 Del Method Room Air 06/16/24 10:11 BMI result Body Mass Index 24.7 Const: Other: Constitutional - Awake and Alert, ill appearing Eyes - PERRLA, EOMI Cardiovascular - S1S2, RRR, No edema Respiratory - Normal lung expansion, Normal respiratory effort, No respiratory distress, CTA bilaterally Gastrointestinal - NT / ND; +BS; No rebound or guarding - No CVA tenderness Extremities - no calf tenderness bilaterally, no swelling Musculoskeletal - Normal inspection, normal ROM Skin - Warm/Dry Neurological - Alert & oriented x3, No focal deficit Psychological - Appropriate affect Results Labs 06/16/24 10:07 06/16/24 10:07 Labs: Laboratory Results - last 24 hr 06/16/24 06/16/24 10:07 12:19 MCV 90.9 MCH 32.4 MCHC 35.6 RDW 14.6 Plt Count 95 L D MPV 10.0 Immature Gran % (Auto) 0.3 Neut % (Auto) 75.5 H Lymph % (Auto) 14.0 L [place] % (Auto) 7.4 Eos % (Auto) 1.9 Baso % (Auto) 0.9 Lymph # (Auto) 1.1 L [place] # (Auto) 0.6 Eos # (Auto) 0.2 Baso # (Auto) 0.1 Abs Immat Gran (auto) 0.02 Absolute Neuts (auto) 5.9 Absolute Nucleated RBC 0.000 Nucleated RBC % (auto) 0.0 PT 13.0 H INR 1.1 Anion Gap 7 L Estim Creat Clear Calc 81.2 Estimated GFR > 60 POC Glucose 194 H Random Glucose 237 H Calcium 9.1 Magnesium 1.8 Total Bilirubin 2.2 H Direct Bilirubin 0.7 H AST 44 H ALT 37 Alkaline Phosphatase 99 Troponin I High Sens < 2.7 Total Protein 6.9 Albumin 3.5 Lipase 22 Influenza Type A (PCR) NEGATIVE Influenza Type B (PCR) NEGATIVE RSV RNA Qual (PCR) NEGATIVE SARS-CoV-2 RNA (RT-PCR) NEGATIVE Imaging Radiologist's Impressions: Impressions Chest X-Ray 06/16/24 09:49 IMPRESSION: No active pulmonary disease. Electronically signed by: Cheo Herrera MD 06/16/2024 10:08 AM [facility] Assessment and Plan (1) Esophageal mass: Status: Acute (2) Adult failure to thrive: Status: Acute Plan 63-year-old male with multiple medical problems including 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 He presents with several weeks of dysphagia/odynophagia even to liquids. He has been unable to maintain his nutrition and hydration necessitating insertion of a PEG tube. 1. Odynophagia/dysphagia Likely due to his known cancer Intolerant to even liquids hence will require PEG tube insertion. However given the presenting symptom, there is concern that this may not be amenable to be completed via endoscopy and may require surgical intervention. Discussed with Dr. Suggs, he will discuss with General surgery. Can give trials of clear liquid with NPO after midnight IV fluids, IV PPI Change his home medications to IV if able 2. Dehydration Due to 1. IV fluids 3. History of diabetes On meds at home, hold Go to a new with point of care is q.6 hours; hold off sliding scale at this time 4. History of seizures On Keppra at home, will change to IV given inability to swallow 5. Esophageal adenocarcinoma Outpatient follow-up with his oncologist Full Code DVT pptx mechanical due to planned procedures tomorrow Pt with odynophagia and dysphagia to even liquids requiring PEG tube insertion. Furthermore possibility of surgical feeding tube placement remains high due to concerns over inability to place PEG endoscopically. Furthermore has evidence of dehydration and is at risk for seizures due to inability to take his Keppra orally. Given the complexity of his underlying conditions, I suspect that he will likely need at least 2 midnights in the hospital and hence will be admitted as inpatient. Quality Stroke Does the patient have a stroke diagnosis?: No VTE Prior VTE?: No VTE Risk Level:: Medical - moderate - high VTE Device Contraindication: N/A - Device Ordered VTE Drug Contraindication: N/A - Med Ordered
--- NOTE | 2024-06-16 14:11 | P.CONGS_ITS ---
History of Present Illness Consult details Consult date: 06/16/24 Narrative: 63-year-old male, with known recurrent esophageal cancer, here because of dysphagia. He has had some weight loss the past year because of progressive difficulty with swallowing. He was initially diagnosed to have esophageal cancer in 2017. He underwent chemotherapy and radiation. He had an endoscopy showing recurrence in 2019. He is currently undergoing chemotherapy for this esophageal cancer. He was deemed to be not a surgical candidate on diagnosis in 2017 He also has a history of heavy drinking and had been diagnosed to have cirrhosis. He had a TIPS procedure for portal hypertension in 2019. He also had embolization coils placed. He says that his dysphagia has been worsening. He still is able to swallow thin liquids but he says that he has to do this slowly. Review of Systems 2 Constitutional: Constitutional: Reports weakness and Reports weight loss Cardiovascular: Cardiovascular: Denies chest pain, Denies dyspnea and Denies dyspnea on exertion Respiratory: Respiratory: Denies cough, Denies dyspnea and Denies dyspnea on exertion Gastrointestinal: Gastrointestinal: Denies hematochezia and Denies change in bowel habits Genitourinary: Genitourinary: Denies hematuria and Denies difficulty urinating Musculoskeletal: Musculoskeletal: Denies back pain and Denies limited range of motion Neurologic: Reports weakness Psychiatric: Psychiatric: Denies depression and Denies mood swings PMFSH Past Medical History Medical History Wears dentures History of blood transfusion History of GI bleed (~2017) Type 2 diabetes mellitus with hyperglycemia Type 2 diabetes mellitus with diabetic polyneuropathy Hyperlipidemia LDL goal <70 Adenocarcinoma of lower esophagus Hx of splenomegaly Male circumcision Constipation Thrombocytopenia Elevated ferritin Esophageal varices Seizure disorder Alcoholic cirrhosis Hepatitis C Anemia Stroke Hepatic cirrhosis Diabetes Esophagus, carcinoma Family History Family History Father No problems noted. Mother Diabetes mellitus Surgical History Surgical History History of surgery on lower extremity (~2003) S/P transjugular intrahepatic portosystemic shunt (~2017) Hx of circumcision Hx of colonoscopy (08/2021) Hx of endoscopy (08/2021) Social History Social History Household Members: Spouse Household Members Other:: Spouse: Antoni Housing: House Are you a primary personal care home administrator to a significant other at home: No Do you presently have visiting nurse or other home services: No Alcohol intake: never Patient Tobacco Use Status: Former Tobacco user Tobacco use type: Cigarette Years Smoked: 10 e-Cigarette/Vaping Use: Never Used Second Hand Smoke Exposure: No Advance Directives Date on File: 01/28/21 service: No Current occupational status: disabled Cognitive needs: No Hearing needs: No Vision needs: No Meds Allergies Allergy/AdvReac Type Severity Reaction Status Date / Time No Known Allergies Allergy Verified 06/16/24 09:46 Active Medications: Current Medications Acetaminophen (Acetaminophen 325 Mg Tablet) 650 mg PO Q6H PRN PRN Reason: Pain, Mild 1-3,fever,headache Levetiracetam 250 mg/ Sodium (Chloride) 102.5 mls @ 410 mls/hr IV BID [facility] Dextrose/Lactated Ringer's (D5lr) 1,000 mls @ 100 mls/hr IVCONT .Q10H [facility] Ondansetron HCl (Ondansetron Hcl 4 Mg/2 Ml Vial) 4 mg IVPUSH Q8H PRN PRN Reason: Nausea and Vomiting Pantoprazole Sodium (Pantoprazole Sodium 40 Mg/10 Ml Vial) 40 mg IVPUSH DAILY@0630 [facility] Sodium Chloride (0.9 % Sodium Chloride Flush 3 Ml Syringe) 3 ml IVFLUSH QSHIFT [facility] Home Medications ?Medication ?Instructions ?Recorded ?Confirmed ?Last Taken ?Type cholecalciferol (vitamin D3) 25 25 mcg PO DAILY 04/06/20 06/16/24 1 Week Ago History mcg (1,000 unit) tablet (Vitamin ~06/09/24 D3) lancets 33 gauge #100 ea 08/15/20 03/29/24 Unknown History pen needle, diabetic 31 gauge x #1,200 ea 08/15/20 03/29/24 Unknown History 11/04 levetiracetam 250 mg tablet 250 mg PO BID 06/16/24 06/16/24 1 Week Ago History ~06/09/24 ondansetron 8 mg disintegrating 8 mg PO Q8H PRN Nausea And Vomiting 06/16/24 06/16/24 1 Week Ago History tablet ~12/19/24 pantoprazole 40 mg tablet,delayed 40 mg PO DAILY@0630 06/16/24 06/16/24 1 Week Ago History release ~06/09/24 Physical Exam 2 Vital Signs: Vital Signs: Last Vital Signs Temp 98.6 F 06/16/24 09:39 Pulse 93 06/16/24 10:11 Resp 15 06/16/24 10:11 BP 108/71 06/16/24 10:11 Pulse Ox 99 06/16/24 10:11 O2 Del Method Room Air 06/16/24 10:11 BMI result Body Mass Index 24.7 Const: General: comfortable and no acute distress O rientation/consciousness: patient oriented x3 Neck: Neck: Yes no lymphadenopathy Resp: Auscultation: clear to auscultation bilaterally Cardio: Rhythm: regular rhythm GI: Other: No scars Palpation (GI): Soft to palpation, nontender and no guarding Neuro: General: patient oriented x3 Results Labs 06/20/24 05:59 06/20/24 05:59 Labs: Abnormal lab results 06/16/24 06/16/24 Range/Units 10:07 12:19 Plt Count 95 L D (160-400) X10*3/uL Neut % (Auto) 75.5 H (45-73) % Lymph % (Auto) 14.0 L (20-40) % Lymph # (Auto) 1.1 L (1.2-4.9) X10*3/uL PT 13.0 H (10.9-12.4) SEC Chloride 109 H (96-108) mmol/L Carbon Dioxide 31 H (22-29) mmol/L Anion Gap 7 L (12-20) BUN 18 H (9-16) mg/dL POC Glucose 194 H (60-115) mg/dL Random Glucose 237 H (60-115) mg/dL Total Bilirubin 2.2 H (0.0-1.0) mg/dL Direct Bilirubin 0.7 H (0.0-0.5) mg/dL AST 44 H (5-37) U/L Short CBC 06/16/24 Range/Units 10:07 WBC 7.8 (4.8-10.8) X10*3/uL Hgb 16.8 (14.0-18.0) g/dl Hct 47.2 (42.0-52.0) % Plt Count 95 L D (160-400) X10*3/uL BMP 06/16/24 10:07 Sodium 144 Potassium 3.4 Chloride 109 H Carbon Dioxide 31 H BUN 18 H Creatinine 0.87 Calcium 9.1 Liver Function 06/16/24 Range/Units 10:07 Total Bilirubin 2.2 H (0.0-1.0) mg/dL Direct Bilirubin 0.7 H (0.0-0.5) mg/dL AST 44 H (5-37) U/L ALT 37 (0-40) U/L Alkaline Phosphatase 99 (39-117) U/L Albumin 3.5 (3.5-5.0) g/dL All other labs normal. Assessment and Plan (1) Adenocarcinoma of lower esophagus: Status: Acute He has had this recurrent esophageal cancer at the EG junction. He has been having worsening dysphagia despite chemotherapy. Dr. Suggs has scheduled him for endoscopy and possible PEG placement tomorrow. Because of his locally advanced esophageal cancer, this may not be doable and he may require surgical G-tube placement . We will see what the findings are tomorrow. I have discussed the above with the patient and his who is at bedside I have recommended doing a CT scan with IV contrast in the meantime in view of his history of cirrhosis, portal hypertension and gastropathy. This increases his risks of bleeding. His INR is normal, and his bilirubin is 2.2. I have discussed the above with Dr. Suggs. His Child Harper score is 7 which puts him as having moderately severe liver disease. Procedures Date of Service Date of Service: 06/20/24
[2024-06-16] MEDS: Dextrose 5 % and Lactated Ring 1,000 ML 100 ML IVCONT (14:42)
[2024-06-16] MEDS: levETIRAcetam 250 MG in 0.9 % Sodium Chloride 100 ML 410 MG IV ×2 (14:44→21:12)
[2024-06-16] MEDS: Pantoprazole Sodium 40 MG/10 ML VIAL IVPUSH (14:44)
[2024-06-16] MEDS: iohexoL 350 MG/ML 100 ML INFUS..BTL IV (15:43)
[2024-06-16 16:33] VITALS: BP 108/75; PULSE 88; RESP 17; TEMP 36.6; O2SAT 99
[2024-06-16 17:43] VITALS: BP 106/68; PULSE 78; RESP 18; TEMP 36; O2SAT 100
[2024-06-16 17:55] LABS: Glucose, Whole Blood 252 mg/dL (60-115)
[2024-06-16 19:15] VITALS: BP 113/69; PULSE 80; RESP 18; TEMP 36.3; O2SAT 99
[2024-06-17] VITALS (12 sets, daily range): BP systolic 97–122; BP diastolic 62–78; PULSE 68–84; RESP 16–20; TEMP 36.3–36.9; O2SAT 95–99
[2024-06-17] MEDS: Dextrose 5 % and Lactated Ring 1,000 ML 100 ML IVCONT ×2 (00:38→15:43)
[2024-06-17 00:42] LABS: Glucose, Whole Blood 257 mg/dL (60-115)
--- NOTE | 2024-06-17 00:57 | CONS_ITS ---
DATE OF SERVICE: 06/16/2024 REFERRING PHYSICIAN: Dr. Dowd REASON FOR CONSULTATION: Dysphagia. HISTORY OF PRESENT ILLNESS: Mr. Granda is a pleasant 63-year-old man, well known to me from prior evaluation. He has a history of esophageal adenocarcinoma, which has been recurrent. He last underwent endoscopy in December of this year, which showed recurrent adenocarcinoma. He has been treated with chemotherapy through the Oncology Department and has had progressive symptoms of dysphagia to the point where he is only able to take liquefied supplements. He has had no hematemesis or melena. He has been treated by Dr. Crawford with pembrolizumab. He underwent CT scanning of the abdomen and pelvis, which is currently pending. PAST MEDICAL HISTORY: 1. Esophageal adenocarcinoma as above with recent endoscopy in December. 2. Colonoscopy in 2021 with arteriovenous malformation, internal hemorrhoids, and 10 year followup. 3. Diabetes mellitus. 4. Cirrhosis. 5. Esophageal varices with history of TIPS. 6. Embolization of gastric varices. 7. CVA with multiple medical interventions as above. 8. Hepatitis C, SVR following treatment with Viekira. PAST SURGICAL HISTORY: Includes leg fractures with surgical fixation; esophageal varices, status post banding; TIPS, 2019. CURRENT MEDICATIONS: His current medication list is reviewed in the chart. ALLERGIES: THERE ARE NONE REPORTED. FAMILY HISTORY: This is reviewed with the patient and is noncontributory. SOCIAL HISTORY: There is no current tobacco, alcohol, or substance abuse. REVIEW OF SYSTEMS: SKIN: No pruritus. HEENT: Negative. CARDIOPULMONARY: He denies shortness of breath or chest pain. GASTROINTESTINAL: As above. He has had about 20 pounds of weight loss over the past several weeks by his report. GENITOURINARY: Negative. NEUROPSYCHIATRIC: Negative. PHYSICAL EXAMINATION: GENERAL: Shows a pleasant male, lying comfortably in bed. VITAL SIGNS: Reviewed in the electronic medical record and are stable. SKIN: Anicteric. HEENT: Shows no scleral icterus. NECK: Without lymphadenopathy or thyromegaly. LUNGS: Clear. HEART: Shows a regular rate and rhythm. S1, S2. No murmur. ABDOMEN: Soft without focal masses or tenderness. Bowel sounds are present. No organomegaly is noted. EXTREMITIES: Without edema. LABORATORY DATA AND IMAGING STUDIES: Reviewed. IMPRESSION: Dysphagia. This appears likely related to his esophageal adenocarcinoma. I discussed endoscopy with him including risks and benefits for possible feeding tube placement. He understands these and agrees to proceed. MD GUY Tejada/JUAN CARLOS / [phone]
[2024-06-17 01:26] LABS: Appearance Urine Clear; Color Urine Dark Yellow; Glucose Urine UA >=1000 mg/dL (Negative); Leukocyte Esterase Urine Negative (Negative); Nitrite Urine Negative (Negative); Specific Gravity - Urine >= 1.030 (1.005-1.025); UMIC TRIGGER UACC YES; Urine Blood Negative (Negative); Urine Ketones Trace mg/dL (Negative); Urine Protein Negative (Neg-Trace)
[2024-06-17 01:28] LABS: Bacteria Urine None Seen (None Seen); Hyaline Casts Urine 0-2 /LPF (0-2); RBC Urine 0-2 /HPF (0-2); Squamous Epithelial Cell Urine 0-2 /HPF (0-2); WBC Urine 0-5 /HPF (0-5)
--- NOTE | 2024-06-17 01:41 | PC.NURSE ---
Patient is diabetic, POC Q 6hr. At midnight 257, no sliding scale ordered. Patient is NPO for PEG placement today. IV D5LR running at 100 ml/hr. Dr Posadas made aware.
[2024-06-17 06:06] LABS: Glucose, Whole Blood 239 mg/dL (60-115)
[2024-06-17] MEDS: Pantoprazole Sodium 40 MG/10 ML VIAL IVPUSH (06:13)
[2024-06-17 06:16] LABS: Hematocrit 37.4 % (42.0-52.0); Hemoglobin 13.3 g/dl (14.0-18.0); Mean Corpuscular HGB Conc 35.6 g/dl (31.0-36.0); Mean Corpuscular Hemoglobin 32.5 pg (27.0-33.0); Mean Corpuscular Volume 91.4 fL (80.0-98.0); Mean Platelet Volume 10.1 fL (9.4-12.4); Red Blood Count 4.09 X10*6/uL (4.60-5.80); Red Cell Distribution Width 14.1 % (11.0-16.0); White Blood Count 4.2 X10*3/uL (4.8-10.8)
[2024-06-17 06:22] LABS: Platelet Count 47 X10*3/uL (160-400)
[2024-06-17 06:31] LABS: Anion Gap 10 (12-20); Blood Urea Nitrogen 15 mg/dL (9-16); Calcium 7.9 mg/dL (8.4-10.2); Carbon Dioxide 27 mmol/L (22-29); Chloride 110 mmol/L (96-108); Creatinine Clr Calc Pharmacy 102.4; Estimated Glomerular Filt Rate > 60; Glucose Random 256 mg/dL (60-115); Potassium 3.3 mmol/L (3.3-5.1); Sodium 144 mmol/L (135-145)
[2024-06-17] MEDS: levETIRAcetam 250 MG in 0.9 % Sodium Chloride 100 ML 410 MG IV ×2 (08:54→21:56)
--- NOTE | 2024-06-17 09:57 | P.PNIM_ITS ---
Subjective Subjective Date of Service: 06/17/24 Interval History: seen and examined bedside no new issues reported. Review of Systems Negative except HPI/interval history. Physical Exam 2 Vital Signs: Vital Signs: Last Vital Signs Temp 97.4 F 06/17/24 07:59 Pulse 73 06/17/24 07:59 Resp 16 06/17/24 07:59 BP 110/64 06/17/24 07:59 Pulse Ox 97 06/17/24 07:59 O2 Del Method Room Air 06/17/24 07:59 BMI result Body Mass Index 24.7 Const: Other: .n Objective Data Active Medications Acetaminophen (Acetaminophen 325 Mg Tablet) 650 mg PO Q6H PRN PRN Reason: Pain, Mild 1-3,fever,headache Levetiracetam 250 mg/ Sodium (Chloride) 102.5 mls @ 410 mls/hr IV BID [facility] Last Infusion: 06/17/24 09:16 Dose: Infused Documented By: DANDY Dextrose/Lactated Ringer's (D5lr) 1,000 mls @ 100 mls/hr IVCONT .Q10H [facility] Last Admin: 06/17/24 00:38 Dose: 100 mls/hr Documented By: RICKY Ondansetron HCl (Ondansetron Hcl 4 Mg/2 Ml Vial) 4 mg IVPUSH Q8H PRN PRN Reason: Nausea and Vomiting Pantoprazole Sodium (Pantoprazole Sodium 40 Mg/10 Ml Vial) 40 mg IVPUSH DAILY@0630 [facility] Last Admin: 06/17/24 06:13 Dose: 40 mg Documented By: RICKY Sodium Chloride (0.9 % Sodium Chloride Flush 3 Ml Syringe) 3 ml IVFLUSH QSHIFT [facility] Last Admin: 06/17/24 08:06 Dose: Not Given Documented By: DANDY Non-Admin Reason: IV Running Labs 06/17/24 05:20 06/17/24 05:20 Labs: Laboratory Results - last 24 hr 06/16/24 06/16/24 06/16/24 10:07 12:19 17:52 MCV 90.9 MCH 32.4 MCHC 35.6 RDW 14.6 Plt Count 95 L D MPV 10.0 Immature Gran % (Auto) 0.3 Neut % (Auto) 75.5 H Lymph % (Auto) 14.0 L [place] % (Auto) 7.4 Eos % (Auto) 1.9 Baso % (Auto) 0.9 Lymph # (Auto) 1.1 L [place] # (Auto) 0.6 Eos # (Auto) 0.2 Baso # (Auto) 0.1 Abs Immat Gran (auto) 0.02 Absolute Neuts (auto) 5.9 Absolute Nucleated RBC 0.000 Nucleated RBC % (auto) 0.0 PT 13.0 H INR 1.1 Anion Gap 7 L Estim Creat Clear Calc 81.2 Estimated GFR > 60 POC Glucose 194 H 252 H Random Glucose 237 H Calcium 9.1 Magnesium 1.8 Total Bilirubin 2.2 H Direct Bilirubin 0.7 H AST 44 H ALT 37 Alkaline Phosphatase 99 Troponin I High Sens < 2.7 Total Protein 6.9 Albumin 3.5 Lipase 22 Urine Color Urine Appearance Urine pH Ur Specific [place] Urine Protein Urine Glucose (UA) Urine Ketones Urine Blood Urine Nitrite Ur Leukocyte Esterase Urine RBC Urine WBC Ur Squamous Epith Cells Urine Bacteria Hyaline Casts Influenza Type A (PCR) NEGATIVE Influenza Type B (PCR) NEGATIVE RSV RNA Qual (PCR) NEGATIVE SARS-CoV-2 RNA (RT-PCR) NEGATIVE 06/17/24 06/17/24 06/17/24 00:30 01:09 05:20 MCV 91.4 MCH 32.5 MCHC 35.6 RDW 14.1 Plt Count 47 L D MPV 10.1 Immature Gran % (Auto) Neut % (Auto) Lymph % (Auto) [place] % (Auto) Eos % (Auto) Baso % (Auto) Lymph # (Auto) [place] # (Auto) Eos # (Auto) Baso # (Auto) Abs Immat Gran (auto) Absolute Neuts (auto) Absolute Nucleated RBC 0.000 Nucleated RBC % (auto) 0.0 PT INR Anion Gap 10 L Estim Creat Clear Calc 102.4 Estimated GFR > 60 POC Glucose 257 H Random Glucose 256 H Calcium 7.9 L D Magnesium Total Bilirubin Direct Bilirubin AST ALT Alkaline Phosphatase Troponin I High Sens Total Protein Albumin Lipase Urine Color Dark Yellow Urine Appearance Clear Urine pH 6.0 Ur Specific [place] >= 1.030 H Urine Protein Negative Urine Glucose (UA) >=1000 H Urine Ketones Trace Urine Blood Negative Urine Nitrite Negative Ur Leukocyte Esterase Negative Urine RBC 0-2 Urine WBC 0-5 Ur Squamous Epith Cells 0-2 Urine Bacteria None Seen Hyaline Casts 0-2 Influenza Type A (PCR) Influenza Type B (PCR) RSV RNA Qual (PCR) SARS-CoV-2 RNA (RT-PCR) 06/17/24 05:58 MCV MCH MCHC RDW Plt Count MPV Immature Gran % (Auto) Neut % (Auto) Lymph % (Auto) [place] % (Auto) Eos % (Auto) Baso % (Auto) Lymph # (Auto) [place] # (Auto) Eos # (Auto) Baso # (Auto) Abs Immat Gran (auto) Absolute Neuts (auto) Absolute Nucleated RBC Nucleated RBC % (auto) PT INR Anion Gap Estim Creat Clear Calc Estimated GFR POC Glucose 239 H Random Glucose Calcium Magnesium Total Bilirubin Direct Bilirubin AST ALT Alkaline Phosphatase Troponin I High Sens Total Protein Albumin Lipase Urine Color Urine Appearance Urine pH Ur Specific [place] Urine Protein Urine Glucose (UA) Urine Ketones Urine Blood Urine Nitrite Ur Leukocyte Esterase Urine RBC Urine WBC Ur Squamous Epith Cells Urine Bacteria Hyaline Casts Influenza Type A (PCR) Influenza Type B (PCR) RSV RNA Qual (PCR) SARS-CoV-2 RNA (RT-PCR) Assessment and Plan (1) Adult failure to thrive: Status: Acute (2) Esophageal mass: Status: Acute Plan 63-year-old male with multiple medical problems including 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 He presents with several weeks of dysphagia/odynophagia even to liquids. He has been unable to maintain his nutrition and hydration necessitating insertion of a PEG tube. 1. Odynophagia/dysphagia Likely due to his known cancer Intolerant to even liquids hence will require PEG tube insertion. However given the presenting symptom, there is concern that this may not be amenable to be completed via endoscopy and may require surgical intervention. GI and surg appreciated IV fluids, IV PPI Change his home medications to IV if able 2. Dehydration Due to 1. IV fluids 3. History of diabetes On meds at home, hold Go to a new with point of care is q.6 hours; hold off sliding scale at this time 4. History of seizures IV keppra for now 5. Esophageal adenocarcinoma Outpatient follow-up with his oncologist 6. Cirrhosis s/p TIPS platelets below 50, will need transfusion prior to planned procedures Full Code DVT pptx mechanical due to planned procedures reason for on going hospitalization: pt requires platelet transfusion prior to his procedures, unable to tolerate PO and requires feeding tube Quality Stroke Does the patient have a stroke diagnosis?: No VTE Prior VTE?: No VTE Risk Level:: Medical - moderate - high VTE Device Contraindication: N/A - Device Ordered VTE Drug Contraindication: N/A - Med Ordered
--- NOTE | 2024-06-17 10:20 | P.CONAN_ITS ---
HPI - Anesthesia Eval Consult details Narrative: 63 yo male patient for insertion of PEG tube PMFSH Active Problems Active Problems: All Active Problems Adult failure to thrive (Acute) Esophageal mass (Acute) Diabetes (Acute) Thoracic spine fracture (Acute) Abnormal x-ray of thoracic spine (Acute) Thoracic back pain (Acute) BMI 30.0-30.9,adult (Acute) Systolic murmur (Acute) Erectile dysfunction associated with type 2 diabetes mellitus (Acute) HTN (hypertension) (Acute) Left knee pain (Acute) Seizures (Acute) Screening PSA (prostate specific antigen) (Acute) Phimosis (Acute) Adenocarcinoma of lower esophagus (Acute) Type 2 diabetes mellitus with hyperglycemia (Acute) Type 2 diabetes mellitus with diabetic polyneuropathy (Acute) Hyperlipidemia LDL goal <70 (Acute) Past Medical History Medical History Wears dentures History of blood transfusion History of GI bleed (~2017) Type 2 diabetes mellitus with hyperglycemia Type 2 diabetes mellitus with diabetic polyneuropathy Hyperlipidemia LDL goal <70 Adenocarcinoma of lower esophagus Hx of splenomegaly Male circumcision Constipation Thrombocytopenia Elevated ferritin Esophageal varices Seizure disorder Alcoholic cirrhosis Hepatitis C Anemia Stroke Hepatic cirrhosis Diabetes Esophagus, carcinoma Family History Family History Father No problems noted. Mother Diabetes mellitus Family history of problems with anesthesia: No Surgical History Surgical History History of surgery on lower extremity (~2003) S/P transjugular intrahepatic portosystemic shunt (~2017) Hx of circumcision Hx of colonoscopy (08/2021) Hx of endoscopy (08/2021) History of Problems with Anesthesia: No Social History Social History Household Members: Spouse Household Members Other:: Spouse: Antoni Housing: House Are you a primary child care nurse to a significant other at home: No Do you presently have visiting nurse or other home services: No Alcohol intake: never Patient Tobacco Use Status: Former Tobacco user Tobacco use type: Cigarette Years Smoked: 10 e-Cigarette/Vaping Use: Never Used Second Hand Smoke Exposure: No Advance Directives Date on File: 01/28/21 service: No Current occupational status: disabled Cognitive needs: No Hearing needs: No Vision needs: No Meds Allergies Allergy/AdvReac Type Severity Reaction Status Date / Time No Known Allergies Allergy Verified 06/16/24 09:46 Active Medications: Current Medications Acetaminophen (Acetaminophen 325 Mg Tablet) 650 mg PO Q6H PRN PRN Reason: Pain, Mild 1-3,fever,headache Levetiracetam 250 mg/ Sodium (Chloride) 102.5 mls @ 410 mls/hr IV BID [facility] Last Infusion: 06/17/24 09:16 Dose: Infused Dextrose/Lactated Ringer's (D5lr) 1,000 mls @ 100 mls/hr IVCONT .Q10H [facility] Last Admin: 06/17/24 00:38 Dose: 100 mls/hr Ondansetron HCl (Ondansetron Hcl 4 Mg/2 Ml Vial) 4 mg IVPUSH Q8H PRN PRN Reason: Nausea and Vomiting Pantoprazole Sodium (Pantoprazole Sodium 40 Mg/10 Ml Vial) 40 mg IVPUSH DAILY@0630 [facility] Last Admin: 06/17/24 06:13 Dose: 40 mg Sodium Chloride (0.9 % Sodium Chloride Flush 3 Ml Syringe) 3 ml IVFLUSH QSHIFT [facility] Last Admin: 06/17/24 08:06 Dose: Not Given Home Medications ?Medication ?Instructions ?Recorded ?Confirmed ?Last Taken ?Type cholecalciferol (vitamin D3) 25 25 mcg PO DAILY 04/06/20 06/16/24 1 Week Ago History mcg (1,000 unit) tablet (Vitamin ~06/09/24 D3) lancets 33 gauge #100 ea 08/15/20 03/29/24 Unknown History pen needle, diabetic 31 gauge x #1,200 ea 08/15/20 03/29/24 Unknown History 11/04 levetiracetam 250 mg tablet 250 mg PO BID 06/16/24 06/16/24 1 Week Ago History ~06/09/24 ondansetron 8 mg disintegrating 8 mg PO Q8H PRN Nausea And Vomiting 06/16/24 06/16/24 1 Week Ago History tablet ~06/09/24 pantoprazole 40 mg tablet,delayed 40 mg PO DAILY@0630 06/16/24 06/16/24 1 Week Ago History release ~06/09/24 Exam Height,Weight and Vital Signs: Height 5 ft 7 in Weight 71.6 kg Last Vital Signs Temp 97.4 F 06/17/24 07:59 Pulse 73 06/17/24 07:59 Resp 16 06/17/24 07:59 BP 110/64 06/17/24 07:59 Pulse Ox 97 06/17/24 07:59 O2 Del Method Room Air 06/17/24 07:59 Pertinent Lab Results Pertinent Lab Results: Laboratory Tests 06/16/24 06/16/24 06/16/24 10:07 12:19 17:52 WBC 7.8 RBC 5.19 Hgb 16.8 Hct 47.2 MCV 90.9 MCH 32.4 MCHC 35.6 RDW 14.6 Plt Count 95 L D MPV 10.0 Immature Gran % (Auto) 0.3 Neut % (Auto) 75.5 H Lymph % (Auto) 14.0 L [place] % (Auto) 7.4 Eos % (Auto) 1.9 Baso % (Auto) 0.9 Lymph # (Auto) 1.1 L [place] # (Auto) 0.6 Eos # (Auto) 0.2 Baso # (Auto) 0.1 Abs Immat Gran (auto) 0.02 Absolute Neuts (auto) 5.9 Absolute Nucleated RBC 0.000 Nucleated RBC % (auto) 0.0 PT 13.0 H INR 1.1 Sodium 144 Potassium 3.4 Chloride 109 H Carbon Dioxide 31 H Anion Gap 7 L BUN 18 H Creatinine 0.87 Estim Creat Clear Calc 81.2 Estimated GFR > 60 POC Glucose 194 H 252 H Random Glucose 237 H Calcium 9.1 Magnesium 1.8 Total Bilirubin 2.2 H Direct Bilirubin 0.7 H AST 44 H ALT 37 Alkaline Phosphatase 99 Troponin I High Sens < 2.7 Total Protein 6.9 Albumin 3.5 Lipase 22 Urine Color Urine Appearance Urine pH Ur Specific [place] Urine Protein Urine Glucose (UA) Urine Ketones Urine Blood Urine Nitrite Ur Leukocyte Esterase Urine RBC Urine WBC Ur Squamous Epith Cells Urine Bacteria Hyaline Casts Influenza Type A (PCR) NEGATIVE Influenza Type B (PCR) NEGATIVE RSV RNA Qual (PCR) NEGATIVE SARS-CoV-2 RNA (RT-PCR) NEGATIVE 06/17/24 06/17/24 06/17/24 00:30 01:09 05:20 WBC 4.2 L RBC 4.09 L D Hgb 13.3 L D Hct 37.4 L D MCV 91.4 MCH 32.5 MCHC 35.6 RDW 14.1 Plt Count 47 L D MPV 10.1 Immature Gran % (Auto) Neut % (Auto) Lymph % (Auto) Dixon % (Auto) Eos % (Auto) Baso % (Auto) Lymph # (Auto) Dixon # (Auto) Eos # (Auto) Baso # (Auto) Abs Immat Gran (auto) Absolute Neuts (auto) Absolute Nucleated RBC 0.000 Nucleated RBC % (auto) 0.0 PT INR Sodium 144 Potassium 3.3 Chloride 110 H Carbon Dioxide 27 Anion Gap 10 L BUN 15 Creatinine 0.69 Estim Creat Clear Calc 102.4 Estimated GFR > 60 POC Glucose 257 H Random Glucose 256 H Calcium 7.9 L D Magnesium Total Bilirubin Direct Bilirubin AST ALT Alkaline Phosphatase Troponin I High Sens Total Protein Albumin Lipase Urine Color Dark Yellow Urine Appearance Clear Urine pH 6.0 Ur Specific [place] >= 1.030 H Urine Protein Negative Urine Glucose (UA) >=1000 H Urine Ketones Trace Urine Blood Negative Urine Nitrite Negative Ur Leukocyte Esterase Negative Urine RBC 0-2 Urine WBC 0-5 Ur Squamous Epith Cells 0-2 Urine Bacteria None Seen Hyaline Casts 0-2 Influenza Type A (PCR) Influenza Type B (PCR) RSV RNA Qual (PCR) SARS-CoV-2 RNA (RT-PCR) 06/17/24 05:58 WBC RBC Hgb Hct MCV MCH MCHC RDW Plt Count MPV Immature Gran % (Auto) Neut % (Auto) Lymph % (Auto) [place] % (Auto) Eos % (Auto) Baso % (Auto) Lymph # (Auto) [place] # (Auto) Eos # (Auto) Baso # (Auto) Abs Immat Gran (auto) Absolute Neuts (auto) Absolute Nucleated RBC Nucleated RBC % (auto) PT INR Sodium Potassium Chloride Carbon Dioxide Anion Gap BUN Creatinine Estim Creat Clear Calc Estimated GFR POC Glucose 239 H Random Glucose Calcium Magnesium Total Bilirubin Direct Bilirubin AST ALT Alkaline Phosphatase Troponin I High Sens Total Protein Albumin Lipase Urine Color Urine Appearance Urine pH Ur Specific [place] Urine Protein Urine Glucose (UA) Urine Ketones Urine Blood Urine Nitrite Ur Leukocyte Esterase Urine RBC Urine WBC Ur Squamous Epith Cells Urine Bacteria Hyaline Casts Influenza Type A (PCR) Influenza Type B (PCR) RSV RNA Qual (PCR) SARS-CoV-2 RNA (RT-PCR) Airway Mallampati Class: III TM Dist: >3cm Neck ROM: Full Denture: Upper Partial: Lower Loose/Missing/Broken Teeth: Yes (Denies broken or loose teeth) Heart: RRR Lungs: CTAB Assessment and Plan Assessment Anesthesia Assessment: Anesthesia Plan Discussed and Chart Reviewed Final Anesthetic Review Family History of Problems with Anesthesia: No History of Problems with Anesthesia: No NPO: Yes ASA Class: III Final Preanesthetic Review: No Changes in Pt Med Stat, Meds/Allgs Chart Reviewed, Consent Obtained/Reviewed and Anes Risks/Benef Reviewed Patient Risk: Intermediate Procedure Risk: Intermediate Assessment/Block/Sedation in SS: Assess/Block/Sedation-SS Anesthetic Plan Anesthetic Plan: GA Disposition: Standard PACU
--- NOTE | 2024-06-17 10:47 | PC.NURSE ---
PT TYPE AND SCREEN BACK TO FLOOR
[2024-06-17 11:56] LABS: Glucose, Whole Blood 202 mg/dL (60-115)
[2024-06-17 12:19] LABS: Glucose, Whole Blood 193 mg/dL (60-115)
--- NOTE | 2024-06-17 13:41 | PC.NURSE ---
pt resting comfortably platelets infusing witth out problem
--- NOTE | 2024-06-17 13:52 | MHC.CLN ---
CONSULT: IF TF NEEDED; RECOMMEND GLUCERNA AT MAX GOAL RATE 75ML/HR WITH 240ML FREE WATER FLUSHES Q 8 HRS TO PROVIDE 1800KCALS (25KCALS/KG), 75G PROTEIN (1.0G/KG), 2255ML TOTAL WATER FROM FORMULA AND FLUSHES (31ML/KG) START FORMULA AT 20ML/HR AND INCREASE BY 10ML Q 4 HRS UNTIL MAX GOAL ACHIEVED MONITOR TOLERANCE AND LYTES RD CAN BE REACHED DURING OFF HOURS VIA TIGER CONNECT IF NEEDED
--- NOTE | 2024-06-17 14:16 | PM.OP ---
Brief Operative Note Date of Service: 06/17/24 Pre-op diagnosis: dysphagia esophageal adenocarcinoma Post-op diagnosis: same Procedure: esophagoscopy and biopsy Surgeon: Benjamin Suggs MD Anesthesia: GETA Was an Cork Compounder used for this Procedure?: No Estimated blood loss (mL): 5 Pathology: other Condition: stable Disposition: PACU
--- NOTE | 2024-06-17 14:17 | PM.EVENT ---
Event Note Date of Service: 06/17/24 Event Note: Endoscopy note dictated Large friable obstructing mass at 30 cm biopsied no varices seen scope could not be advanced into stomach Rec surgical g tube placement discussed with Dr Sahu. Time Spent With Patient Time: Total time managing care of this patient today ____ minutes.
--- NOTE | 2024-06-17 15:02 | OP_ITS ---
DATE OF SERVICE: 06/17/2024 SURGEON: Benjamin Suggs MD INDICATIONS: Dysphagia, esophageal adenocarcinoma, and need for PEG placement. PREOPERATIVE DIAGNOSIS: POSTOPERATIVE DIAGNOSIS: PROCEDURE PERFORMED: Esophagoscopy with biopsy. ESTIMATED BLOOD LOSS: COMPLICATIONS: ANESTHESIA: General anesthesia. ASSISTANTS: SPECIMENS: DESCRIPTION OF PROCEDURE: A history and physical was performed. The risks and benefits of the procedure were explained to the patient and informed consent was obtained. The patient was placed in the supine position. The Olympus video gastroscope was introduced into the esophagus. Examination was performed and the scope was removed. He tolerated the procedure well and was returned to recovery area in stable condition. FINDINGS: Esophagus: At about 30 cm from the incisors, was a large esophageal mass consistent with his known history of esophageal adenocarcinoma. There appeared to be some food material around this. Biopsies were obtained from the mass, which was quite friable. Gentle attempts were made to try and gently advance the scope below the tumor, but this was not possible and because of his history of radiation and previous esophageal varices, the procedure was discontinued. The stomach and duodenum were not examined. IMPRESSION: Esophageal adenocarcinoma, recurrent. RECOMMENDATIONS: 1. Follow up the biopsy results. 2. He will need G-tube placement with surgical gastrostomy or Interventional Radiology. MD GUY Tejada/TOYINL / [id number]
--- NOTE | 2024-06-17 15:07 | P.PNGS_ITS ---
Subjective Subjective Date of Service: 06/17/24 Interval history: PEG tube was attempted by Dr. Suggs Unable to pass scope in the distal esophagus in view of the large tumor which appears to be obstructed He denies new complaints Physical Exam 2 Vital Signs: Vital Signs: Last Vital Signs Temp 97.3 F 06/17/24 14:31 Pulse 72 06/17/24 14:42 Resp 16 06/17/24 14:42 BP 117/70 06/17/24 14:42 Pulse Ox 95 06/17/24 14:42 O2 Del Method Room Air 06/17/24 14:42 O2 Flow Rate 6 06/17/24 14:27 BMI result Body Mass Index 24.7 Const: General: comfortable and no acute distress Resp: Effort & Inspection: normal respiratory effort Cardio: Rate: regular rate GI: Palpation (GI): Soft to palpation, not firm, nontender and no guarding Objective Data Active Medications Acetaminophen (Acetaminophen 325 Mg Tablet) 650 mg PO Q6H PRN PRN Reason: Pain, Mild 1-3,fever,headache Fentanyl (Fentanyl Citrate/Pf 100 Mcg/2 Ml Vial) 25 mcg IVPUSH Q5M PRN PRN Reason: Pain, Moderate to Severe (Pain Scale 4-10) Stop: 06/17/24 19:30 Levetiracetam 250 mg/ Sodium (Chloride) 102.5 mls @ 410 mls/hr IV BID [facility] Last Infusion: 06/17/24 09:16 Dose: Infused Documented By: DANDY Dextrose/Lactated Ringer's (D5lr) 1,000 mls @ 100 mls/hr IVCONT .Q10H [facility] Last Infusion: 06/17/24 10:51 Dose: Infused Documented By: DANDY Lactated Ringer's (Lr) 1,000 mls @ 100 mls/hr IVCONT .Q10H [facility] Naloxone HCl (Naloxone Hcl 0.4 Mg/Ml Vial) 0.04 mg IVPUSH Q5M PRN PRN Reason: Excessive sedation or RR < 8 Ondansetron HCl (Ondansetron Hcl 4 Mg/2 Ml Vial) 4 mg IVPUSH Q8H PRN PRN Reason: Nausea and Vomiting Ondansetron HCl (Ondansetron Hcl 4 Mg/2 Ml Vial) 4 mg IVPUSH ONCE PRN PRN Reason: Nausea and Vomiting Stop: 06/17/24 19:30 Pantoprazole Sodium (Pantoprazole Sodium 40 Mg/10 Ml Vial) 40 mg IVPUSH DAILY@0630 [facility] Last Admin: 06/17/24 06:13 Dose: 40 mg Documented By: RICKY Sodium Chloride (0.9 % Sodium Chloride Flush 3 Ml Syringe) 3 ml IVFLUSH QSHIFT [facility] Last Admin: 06/17/24 08:06 Dose: Not Given Documented By: DANDY Non-Admin Reason: IV Running Labs 06/17/24 05:20 06/17/24 05:20 Labs: Laboratory Results - last 24 hr 06/16/24 06/17/24 06/17/24 17:52 00:30 01:09 MCV MCH MCHC RDW Plt Count MPV Absolute Nucleated RBC Nucleated RBC % (auto) Anion Gap Estim Creat Clear Calc Estimated GFR POC Glucose 252 H 257 H Random Glucose Calcium Urine Color Dark Yellow Urine Appearance Clear Urine pH 6.0 Ur Specific [place] >= 1.030 H Urine Protein Negative Urine Glucose (UA) >=1000 H Urine Ketones Trace Urine Blood Negative Urine Nitrite Negative Ur Leukocyte Esterase Negative Urine RBC 0-2 Urine WBC 0-5 Ur Squamous Epith Cells 0-2 Urine Bacteria None Seen Hyaline Casts 0-2 Blood Type Antibody Screen 06/17/24 06/17/24 06/17/24 05:20 05:58 10:23 MCV 91.4 MCH 32.5 MCHC 35.6 RDW 14.1 Plt Count 47 L D MPV 10.1 Absolute Nucleated RBC 0.000 Nucleated RBC % (auto) 0.0 Anion Gap 10 L Estim Creat Clear Calc 102.4 Estimated GFR > 60 POC Glucose 239 H 202 H Random Glucose 256 H Calcium 7.9 L D Urine Color Urine Appearance Urine pH Ur Specific [place] Urine Protein Urine Glucose (UA) Urine Ketones Urine Blood Urine Nitrite Ur Leukocyte Esterase Urine RBC Urine WBC Ur Squamous Epith Cells Urine Bacteria Hyaline Casts Blood Type Antibody Screen 06/17/24 06/17/24 10:40 12:16 MCV MCH MCHC RDW Plt Count MPV Absolute Nucleated RBC Nucleated RBC % (auto) Anion Gap Estim Creat Clear Calc Estimated GFR POC Glucose 193 H Random Glucose Calcium Urine Color Urine Appearance Urine pH Ur Specific [place] Urine Protein Urine Glucose (UA) Urine Ketones Urine Blood Urine Nitrite Ur Leukocyte Esterase Urine RBC Urine WBC Ur Squamous Epith Cells Urine Bacteria Hyaline Casts Blood Type O Positive Antibody Screen NEGATIVE Procedures Date of Service Date of Service: 06/17/24 Progress Note: A&P Assessment and plan (1) Adenocarcinoma of lower esophagus: Status: Acute Assessment and Plan: Attempted PEG tube unsuccessful Plan to do open gastrostomy tube placement on Thursday I reviewed the technique of the procedure with the patient I explained the risks including but not limited to bleeding, infections, tube dislodgement, bowel injury, leak of bowel contents, inherent risks of anesthesia He understands that his perioperative risks are higher than most in view of his multiple comorbidities including cirrhosis Review of his CT scan shows no suggestion of gastric varices He agrees to proceed Continue IV hydration Follow platelets, INR Time Spent With Patient Time: Total time managing care of this patient today ____ minutes. Quality Stroke Does the patient have a stroke diagnosis?: No VTE Prior VTE?: No VTE Risk Level:: Medical - moderate - high VTE Device Contraindication: N/A - Device Ordered VTE Drug Contraindication: N/A - Med Ordered
[2024-06-17 17:32] LABS: Glucose, Whole Blood 283 mg/dL (60-115)
[2024-06-17 23:35] LABS: Glucose, Whole Blood 284 mg/dL (60-115)
[2024-06-18] MEDS: Dextrose 5 % and Lactated Ring 1,000 ML 100 ML IVCONT ×2 (02:19→12:36)
[2024-06-18 02:52] VITALS: BP 111/59; PULSE 77; RESP 16; TEMP 36.6; O2SAT 95
[2024-06-18 05:42] LABS: Glucose, Whole Blood 285 mg/dL (60-115)
[2024-06-18] MEDS: Pantoprazole Sodium 40 MG/10 ML VIAL IVPUSH (06:34)
[2024-06-18 07:27] VITALS: BP 103/55; PULSE 73; RESP 16; TEMP 36.7; O2SAT 96
--- NOTE | 2024-06-18 08:30 | PC.NURSE ---
Pt's POC running high no sliding scale ordered . MD Posadas notified no new treatment at this time
[2024-06-18] MEDS: levETIRAcetam 250 MG in 0.9 % Sodium Chloride 100 ML 410 MG IV ×2 (08:33→22:07)
[2024-06-18 11:32] LABS: Glucose, Whole Blood 348 mg/dL (60-115)
[2024-06-18 11:39] VITALS: BP 103/63; PULSE 71; RESP 18; TEMP 36.6; O2SAT 98
--- NOTE | 2024-06-18 14:42 | P.PNIM_ITS ---
Subjective Subjective Date of Service: 06/18/24 Interval History: seen and evaluated unable to tolerate PO pain fairly controlled Plan for G-tube placement Thursday no other events Review of Systems Review of Systems: Yes all other systems are reviewed and are negative Physical Exam 2 Vital Signs: Vital Signs: Last Vital Signs Temp 97.8 F 06/18/24 11:39 Pulse 71 06/18/24 11:39 Resp 18 06/18/24 11:39 BP 103/63 06/18/24 11:39 Pulse Ox 98 06/18/24 11:39 O2 Del Method Room Air 06/18/24 11:39 O2 Flow Rate 6 06/17/24 14:27 BMI result Body Mass Index 24.7 Const: Other: Constitutional : Awake, interactive, not in distress Neck : Normal inspection, Supple Cardiovascular : RRR, no JVP, no lower extremity edema Respiratory : good bilateral air entry, no crackles, wheezes or rhonchi Gastrointestinal: soft, lax, Normal bowel sounds, Non tender Skin : Warm, Dry Neurological : Alert & oriented x3, No focal deficit Objective Data Active Medications Acetaminophen (Acetaminophen 325 Mg Tablet) 650 mg PO Q6H PRN PRN Reason: Pain, Mild 1-3,fever,headache Levetiracetam 250 mg/ Sodium (Chloride) 102.5 mls @ 410 mls/hr IV BID [facility] Last Infusion: 06/18/24 08:54 Dose: Infused Documented By: ANDREW Naloxone HCl (Naloxone Hcl 0.4 Mg/Ml Vial) 0.04 mg IVPUSH Q5M PRN PRN Reason: Excessive sedation or RR < 8 Ondansetron HCl (Ondansetron Hcl 4 Mg/2 Ml Vial) 4 mg IVPUSH Q8H PRN PRN Reason: Nausea and Vomiting Pantoprazole Sodium (Pantoprazole Sodium 40 Mg/10 Ml Vial) 40 mg IVPUSH DAILY@0630 [facility] Last Admin: 06/18/24 06:34 Dose: 40 mg Documented By: RICKY Sodium Chloride (0.9 % Sodium Chloride Flush 3 Ml Syringe) 3 ml IVFLUSH QSHIFT [facility] Last Admin: 06/18/24 07:33 Dose: Not Given Documented By: ANDREW Non-Admin Reason: IV Running Labs 06/17/24 05:20 06/17/24 05:20 Labs: Laboratory Results - last 24 hr 06/17/24 06/17/24 06/18/24 17:28 23:31 05:38 POC Glucose 283 H 284 H 285 H 06/18/24 11:23 POC Glucose 348 H Assessment and Plan (1) Adult failure to thrive: Status: Acute (2) Esophageal mass: Status: Acute Plan 63-year-old male with multiple medical problems including 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 He presents with several weeks of dysphagia/odynophagia even to liquids. He has been unable to maintain his nutrition and hydration necessitating insertion of a PEG tube. # Odynophagia/dysphagia 2/2 esophageal cancer Intolerant to even liquids hence will require surgical PEG tube insertion as endoscopic approache did not work GI did EGD showing large mass, pending pathology surg following for PEG tube on Thursday IV fluids, IV PPI #Dehydration IV fluids # History of diabetes point of care is q.6 hours; hold off sliding scale at this time # History of seizures IV keppra # Esophageal adenocarcinoma Outpatient follow-up with his oncologist # Cirrhosis s/p TIPS platelets below 50, will likely need transfusion prior to planned procedures Full Code DVT pptx mechanical due to planned procedure and low PLT reason for on going hospitalization: pt requires platelet transfusion prior to his procedures, unable to tolerate PO and requires feeding tube Quality Stroke Does the patient have a stroke diagnosis?: No VTE Prior VTE?: No VTE Risk Level:: Medical - moderate - high VTE Device Contraindication: N/A - Device Ordered VTE Drug Contraindication: N/A - Med Ordered
[2024-06-18 15:27] VITALS: BP 111/66; PULSE 74; RESP 18; TEMP 36.4; O2SAT 96
[2024-06-18] MEDS: Dextrose 5 % and Lactated Ring 1,000 ML 80 ML IVCONT ×2 (16:09→22:29)
--- NOTE | 2024-06-18 17:38 | HO.POSTANES ---
Post Anesthesia Evaluation Post Anesthesia Evaluation Date of Service: 06/18/24 Vital Signs: Vital Signs Temp Pulse Resp BP Pulse Ox O2 Del Method 06/18/24 15:27 97.5 F 74 18 111/66 96 Room Air 06/18/24 11:39 97.8 F 71 18 103/63 98 Room Air 06/18/24 07:27 98.0 F 73 16 103/55 L 96 Room Air Anesthesia: General Endotracheal-GETA Mental Status: Awake Pain Control: Satisfactory Nausea/Vomiting: None Hydration: Adequate Anesthesia-Related Issues: No Anes. Related Issues
[2024-06-18 18:04] LABS: Glucose, Whole Blood 270 mg/dL (60-115)
[2024-06-18 19:37] VITALS: BP 161/88; PULSE 70; RESP 18; TEMP 36.5; O2SAT 98
[2024-06-18 23:38] VITALS: BP 109/60; PULSE 73; RESP 18; TEMP 36.6; O2SAT 96
[2024-06-18 23:44] LABS: Glucose, Whole Blood 220 mg/dL (60-115)
[2024-06-19 02:39] VITALS: BP 125/70; PULSE 69; RESP 18; TEMP 36.6; O2SAT 96
[2024-06-19] MEDS: Pantoprazole Sodium 40 MG/10 ML VIAL IVPUSH (05:53)
[2024-06-19 05:58] LABS: Glucose, Whole Blood 221 mg/dL (60-115)
[2024-06-19 07:50] VITALS: BP 106/58; PULSE 70; RESP 16; TEMP 36.6; O2SAT 95
[2024-06-19 07:51] LABS: MANUAL DIFF FLAG NO
[2024-06-19 08:04] LABS: Basophils Percent Auto 0.6 % (0-2); Eosinophils Absolute Auto 0.1 X10*3/uL (0.0-0.4); Eosinophils Percent Auto 3.3 % (0-4); Hematocrit 36.3 % (42.0-52.0); Hemoglobin 12.9 g/dl (14.0-18.0); Lymphocytes Absolute Auto 0.8 X10*3/uL (1.2-4.9); Lymphocytes Percent Auto 24.2 % (20-40); Mean Corpuscular HGB Conc 35.5 g/dl (31.0-36.0); Mean Corpuscular Hemoglobin 31.9 pg (27.0-33.0); Mean Corpuscular Volume 89.6 fL (80.0-98.0); Mean Platelet Volume 10.4 fL (9.4-12.4); Monocytes Absolute Auto 0.2 X10*3/uL (0.1-1.2); Monocytes Percent Auto 6.6 % (2-11); Neutrophils Absolute Auto 2.2 x10*3/uL (2.0-8.3); Neutrophils Percent Auto 65.3 % (45-73); Red Blood Count 4.05 X10*6/uL (4.60-5.80); Red Cell Distribution Width 13.9 % (11.0-16.0); White Blood Count 3.4 X10*3/uL (4.8-10.8)
[2024-06-19 08:05] LABS: Platelet Count 41 X10*3/uL (160-400)
[2024-06-19 08:32] LABS: Anion Gap 7 (12-20); Blood Urea Nitrogen 9 mg/dL (9-16); Calcium 7.8 mg/dL (8.4-10.2); Carbon Dioxide 25 mmol/L (22-29); Chloride 116 mmol/L (96-108); Creatinine Clr Calc Pharmacy 105.5; Estimated Glomerular Filt Rate > 60; Glucose Random 258 mg/dL (60-115); Potassium 3.2 mmol/L (3.3-5.1); Sodium 145 mmol/L (135-145)
[2024-06-19] MEDS: levETIRAcetam 250 MG in 0.9 % Sodium Chloride 100 ML 410 MG IV ×2 (08:37→20:37)
[2024-06-19] MEDS: Dextrose 5 % and Lactated Ring 1,000 ML 80 ML IVCONT ×2 (10:52→20:52)
[2024-06-19 12:00] VITALS: BP 111/58; PULSE 79; RESP 16; TEMP 36.7; O2SAT 95
[2024-06-19 12:06] LABS: Glucose, Whole Blood 237 mg/dL (60-115)
--- NOTE | 2024-06-19 13:52 | P.PNIM_ITS ---
Subjective Subjective Date of Service: 06/19/24 Interval History: seen and evaluated unable to tolerate PO pain fairly controlled Plan for G-tube placement tomorrow no other events Review of Systems Review of Systems: Yes all other systems are reviewed and are negative Physical Exam 2 Vital Signs: Vital Signs: Last Vital Signs Temp 98.0 F 06/19/24 12:00 Pulse 79 06/19/24 12:00 Resp 16 06/19/24 12:00 BP 111/58 L 06/19/24 12:00 Pulse Ox 95 06/19/24 12:00 O2 Del Method Room Air 06/19/24 12:00 O2 Flow Rate 6 06/17/24 14:27 BMI result Body Mass Index 24.7 Const: Other: Constitutional : Awake, interactive, not in distress Neck : Normal inspection, Supple Cardiovascular : RRR, no JVP, no lower extremity edema Respiratory : good bilateral air entry, no crackles, wheezes or rhonchi Gastrointestinal: soft, lax, Normal bowel sounds, Non tender Skin : Warm, Dry Neurological : Alert & oriented x3, No focal deficit Objective Data Active Medications Acetaminophen (Acetaminophen 325 Mg Tablet) 650 mg PO Q6H PRN PRN Reason: Pain, Mild 1-3,fever,headache Levetiracetam 250 mg/ Sodium (Chloride) 102.5 mls @ 410 mls/hr IV BID [facility] Last Infusion: 06/19/24 08:52 Dose: Infused Documented By: SANDRA Dextrose/Lactated Ringer's (D5lr) 1,000 mls @ 80 mls/hr IVCONT .[id number] [facility] Last Admin: 06/19/24 10:52 Dose: 80 mls/hr Documented By: SANDRA Naloxone HCl (Naloxone Hcl 0.4 Mg/Ml Vial) 0.04 mg IVPUSH Q5M PRN PRN Reason: Excessive sedation or RR < 8 Ondansetron HCl (Ondansetron Hcl 4 Mg/2 Ml Vial) 4 mg IVPUSH Q8H PRN PRN Reason: Nausea and Vomiting Sodium Chloride (0.9 % Sodium Chloride Flush 3 Ml Syringe) 3 ml IVFLUSH QSHIFT [facility] Last Admin: 06/19/24 08:39 Dose: Not Given Documented By: ANDREW Non-Admin Reason: IV Running Labs 06/19/24 07:19 06/19/24 07:19 Labs: Laboratory Results - last 24 hr 06/18/24 06/18/24 06/19/24 18:01 23:39 05:53 MCV MCH MCHC RDW Plt Count MPV Immature Gran % (Auto) Neut % (Auto) Lymph % (Auto) [place] % (Auto) Eos % (Auto) Baso % (Auto) Lymph # (Auto) [place] # (Auto) Eos # (Auto) Baso # (Auto) Abs Immat Gran (auto) Absolute Neuts (auto) Absolute Nucleated RBC Nucleated RBC % (auto) Anion Gap Estim Creat Clear Calc Estimated GFR POC Glucose 270 H 220 H 221 H Random Glucose Calcium 06/19/24 06/19/24 07:19 12:01 MCV 89.6 MCH 31.9 MCHC 35.5 RDW 13.9 Plt Count 41 L MPV 10.4 Immature Gran % (Auto) 0.0 Neut % (Auto) 65.3 Lymph % (Auto) 24.2 [place] % (Auto) 6.6 Eos % (Auto) 3.3 Baso % (Auto) 0.6 Lymph # (Auto) 0.8 L [place] # (Auto) 0.2 Eos # (Auto) 0.1 Baso # (Auto) 0.0 Abs Immat Gran (auto) 0.00 Absolute Neuts (auto) 2.2 Absolute Nucleated RBC 0.000 Nucleated RBC % (auto) 0.0 Anion Gap 7 L Estim Creat Clear Calc 105.5 Estimated GFR > 60 POC Glucose 237 H Random Glucose 258 H Calcium 7.8 L Assessment and Plan (1) Adult failure to thrive: Status: Acute (2) Esophageal mass: Status: Acute (3) Swallowing problem: Status: Acute Plan 63-year-old male with multiple medical problems including 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 He presents with several weeks of dysphagia/odynophagia even to liquids. He has been unable to maintain his nutrition and hydration necessitating insertion of a PEG tube. # Odynophagia/dysphagia 2/2 esophageal cancer Intolerant to even liquids hence will require surgical PEG tube insertion as endoscopic approache did not work GI did EGD showing large mass, pending pathology surg following for PEG tube on tomorrow IV fluids, IV PPI # Thrombocytopenia Will likely need PLT Transfusion prior to procedure # Acute hypokalemia K 3.1 give IV replacement , follow BMP #Dehydration continue IV fluids # History of diabetes point of care is q.6 hours; hold off sliding scale at this time # History of seizures IV keppra # Esophageal adenocarcinoma Outpatient follow-up with his oncologist # Cirrhosis s/p TIPS platelets below 50, will likely need transfusion prior to planned procedures Full Code DVT pptx mechanical due to planned procedure and low PLT reason for on going hospitalization: pt requires platelet transfusion prior to his procedures, unable to tolerate PO and requires feeding tube Quality Stroke Does the patient have a stroke diagnosis?: No VTE Prior VTE?: No VTE Risk Level:: Medical - moderate - high VTE Device Contraindication: N/A - Device Ordered VTE Drug Contraindication: N/A - Med Ordered
[2024-06-19] MEDS: Potassium Chloride/H20 10 MEQ/100 ML PIGGYBACK 100 MEQ IV ×2 (15:06→16:14)
[2024-06-19 15:10] VITALS: BP 109/70; PULSE 73; RESP 16; TEMP 36.4; O2SAT 96
[2024-06-19 17:46] LABS: Glucose, Whole Blood 226 mg/dL (60-115)
[2024-06-19] MEDS: 0.9 % Sodium Chloride Flush 3 ML SYRINGE IVFLUSH ×2 (18:24→20:39)
[2024-06-19 19:13] VITALS: BP 111/62; PULSE 72; RESP 18; TEMP 36.6; O2SAT 95
[2024-06-19] MEDS: Acetaminophen 325 MG TABLET 650 MG PO (20:26)
[2024-06-19] MEDS: bisacodyL 10 MG SUPP.RECT PR (20:51)
[2024-06-19 23:39] VITALS: BP 122/78; PULSE 92; RESP 16; TEMP 36.9; O2SAT 97
[2024-06-19 23:50] LABS: Glucose, Whole Blood 234 mg/dL (60-115)
[2024-06-20] VITALS (21 sets, daily range): BP systolic 103–124; BP diastolic 61–76; PULSE 69–86; RESP 16–20; TEMP 36.1–36.9; O2SAT 91–98; BMI 24.7
[2024-06-20 05:36] LABS: Glucose, Whole Blood 227 mg/dL (60-115)
[2024-06-20 06:38] LABS: MANUAL DIFF FLAG NO
[2024-06-20 06:56] LABS: White Blood Count 3.9 X10*3/uL (4.8-10.8)
[2024-06-20 06:57] LABS: Anion Gap 7 (12-20); Basophils Percent Auto 0.5 % (0-2); Blood Urea Nitrogen 10 mg/dL (9-16); Calcium 7.8 mg/dL (8.4-10.2); Carbon Dioxide 25 mmol/L (22-29); Chloride 116 mmol/L (96-108); Creatinine Clr Calc Pharmacy 110.4; Eosinophils Absolute Auto 0.1 X10*3/uL (0.0-0.4); Eosinophils Percent Auto 3.4 % (0-4); Estimated Glomerular Filt Rate > 60; Glucose Random 250 mg/dL (60-115); Hematocrit 35.9 % (42.0-52.0); Hemoglobin 13.1 g/dl (14.0-18.0); Imm Gran Abs Auto 0.01 X10*3/uL (0.00-0.03); Imm Gran Pct Auto 0.3 % (0.0-0.4); Lymphocytes Absolute Auto 0.8 X10*3/uL (1.2-4.9); Lymphocytes Percent Auto 19.3 % (20-40); Mean Corpuscular HGB Conc 36.5 g/dl (31.0-36.0); Mean Corpuscular Hemoglobin 32.7 pg (27.0-33.0); Mean Corpuscular Volume 89.5 fL (80.0-98.0); Mean Platelet Volume 10.1 fL (9.4-12.4); Monocytes Absolute Auto 0.3 X10*3/uL (0.1-1.2); Monocytes Percent Auto 7.5 % (2-11); Neutrophils Absolute Auto 2.7 x10*3/uL (2.0-8.3); Potassium 3.4 mmol/L (3.3-5.1); Red Blood Count 4.01 X10*6/uL (4.60-5.80); Red Cell Distribution Width 13.9 % (11.0-16.0); Sodium 145 mmol/L (135-145)
[2024-06-20 07:00] LABS: Platelet Count 45 X10*3/uL (160-400)
--- NOTE | 2024-06-20 08:03 | P.PNGS_ITS ---
Subjective Subjective Date of Service: 06/20/24 Interval history: Denies any new complaint No events over the weekend Physical Exam 2 Vital Signs: Vital Signs: Last Vital Signs Temp 97.2 F 06/20/24 07:45 Pulse 80 06/20/24 07:45 Resp 16 06/20/24 07:45 BP 103/61 06/20/24 07:45 Pulse Ox 95 06/20/24 07:45 O2 Del Method Room Air 06/20/24 07:45 O2 Flow Rate 6 06/17/24 14:27 BMI result Body Mass Index 24.7 Const: General: comfortable and no acute distress Resp: Effort & Inspection: normal respiratory effort Cardio: Rate: regular rate GI: Palpation (GI): Soft to palpation, not firm, nontender and no guarding Objective Data Active Medications Acetaminophen (Acetaminophen 325 Mg Tablet) 650 mg PO Q6H PRN PRN Reason: Pain, Mild 1-3,fever,headache Last Admin: 06/19/24 20:26 Dose: 650 mg Documented By: RICKY Levetiracetam 250 mg/ Sodium (Chloride) 102.5 mls @ 410 mls/hr IV BID [facility] Last Infusion: 06/19/24 20:52 Dose: Infused Documented By: RICKY Dextrose/Lactated Ringer's (D5lr) 1,000 mls @ 80 mls/hr IVCONT .[id number] [facility] Last Admin: 06/20/24 04:35 Dose: Not Given Documented By: RICKY Non-Admin Reason: IV Running Naloxone HCl (Naloxone Hcl 0.4 Mg/Ml Vial) 0.04 mg IVPUSH Q5M PRN PRN Reason: Excessive sedation or RR < 8 Ondansetron HCl (Ondansetron Hcl 4 Mg/2 Ml Vial) 4 mg IVPUSH Q8H PRN PRN Reason: Nausea and Vomiting Sodium Chloride (0.9 % Sodium Chloride Flush 3 Ml Syringe) 3 ml IVFLUSH QSHIFT [facility] Last Admin: 06/19/24 20:39 Dose: 3 ml Documented By: RICKY Labs 06/20/24 05:59 06/20/24 05:59 Labs: Laboratory Results - last 24 hr 06/19/24 06/19/24 06/19/24 07:19 12:01 17:41 MCV 89.6 MCH 31.9 MCHC 35.5 RDW 13.9 Plt Count 41 L MPV 10.4 Immature Gran % (Auto) 0.0 Neut % (Auto) 65.3 Lymph % (Auto) 24.2 [place] % (Auto) 6.6 Eos % (Auto) 3.3 Baso % (Auto) 0.6 Lymph # (Auto) 0.8 L [place] # (Auto) 0.2 Eos # (Auto) 0.1 Baso # (Auto) 0.0 Abs Immat Gran (auto) 0.00 Absolute Neuts (auto) 2.2 Absolute Nucleated RBC 0.000 Nucleated RBC % (auto) 0.0 Anion Gap 7 L Estim Creat Clear Calc 105.5 Estimated GFR > 60 POC Glucose 237 H 226 H Random Glucose 258 H Calcium 7.8 L 06/19/24 06/20/24 06/20/24 23:43 05:32 05:59 MCV 89.5 MCH 32.7 MCHC 36.5 H RDW 13.9 Plt Count 45 L MPV 10.1 Immature Gran % (Auto) 0.3 Neut % (Auto) 69.0 Lymph % (Auto) 19.3 L [place] % (Auto) 7.5 Eos % (Auto) 3.4 Baso % (Auto) 0.5 Lymph # (Auto) 0.8 L [place] # (Auto) 0.3 Eos # (Auto) 0.1 Baso # (Auto) 0.0 Abs Immat Gran (auto) 0.01 Absolute Neuts (auto) 2.7 Absolute Nucleated RBC 0.000 Nucleated RBC % (auto) 0.0 Anion Gap 7 L Estim Creat Clear Calc 110.4 Estimated GFR > 60 POC Glucose 234 H 227 H Random Glucose 250 H Calcium 7.8 L Procedures Date of Service Date of Service: 06/20/24 Progress Note: A&P Assessment and plan (1) Adenocarcinoma of lower esophagus: Status: Acute Assessment and Plan: Had failed peg tube placement in view of large obstructing tumor I reviewed with him the technique of been surgical gastrostomy tube placement I explained the risks including but not limited to bleeding, infections injury to other organs, blood clots, pneumonia, tube leak, tube dislodgement, as well as the benefits and alternatives We will give him platelets before the procedure He says he understands the above and has given consent His was with him during the discussion She understands these perioperative risks are higher in view of his multiple medical problems especially chronic liver disease with cirrhosis Review of his CT scan images shows no suggestion of gastric varices Time Spent With Patient Time: Total time managing care of this patient today ____ minutes. Quality Stroke Does the patient have a stroke diagnosis?: No VTE Prior VTE?: No VTE Risk Level:: Medical - moderate - high VTE Device Contraindication: N/A - Device Ordered VTE Drug Contraindication: N/A - Med Ordered
[2024-06-20] MEDS: levETIRAcetam 250 MG in 0.9 % Sodium Chloride 100 ML 410 MG IV ×2 (10:14→20:33)
--- NOTE | 2024-06-20 10:42 | P.CONAN_ITS ---
[facility] Active Problems Active Problems: All Active Problems Swallowing problem (Acute) Adult failure to thrive (Acute) Esophageal mass (Acute) Diabetes (Acute) Thoracic spine fracture (Acute) Abnormal x-ray of thoracic spine (Acute) Thoracic back pain (Acute) BMI 30.0-30.9,adult (Acute) Systolic murmur (Acute) Erectile dysfunction associated with type 2 diabetes mellitus (Acute) HTN (hypertension) (Acute) Left knee pain (Acute) Seizures (Acute) Screening PSA (prostate specific antigen) (Acute) Phimosis (Acute) Adenocarcinoma of lower esophagus (Acute) Type 2 diabetes mellitus with hyperglycemia (Acute) Type 2 diabetes mellitus with diabetic polyneuropathy (Acute) Hyperlipidemia LDL goal <70 (Acute) Past Medical History Medical History Wears dentures History of blood transfusion History of GI bleed (~2018) Type 2 diabetes mellitus with hyperglycemia Type 2 diabetes mellitus with diabetic polyneuropathy Hyperlipidemia LDL goal <70 Adenocarcinoma of lower esophagus Hx of splenomegaly Male circumcision Constipation Thrombocytopenia Elevated ferritin Esophageal varices Seizure disorder Alcoholic cirrhosis Hepatitis C Anemia Stroke Hepatic cirrhosis Diabetes Esophagus, carcinoma Family History Family History Father No problems noted. Mother Diabetes mellitus Family history of problems with anesthesia: No Surgical History Surgical History History of surgery on lower extremity (~2003) S/P transjugular intrahepatic portosystemic shunt (~2017) Hx of circumcision Hx of colonoscopy (08/2021) Hx of endoscopy (08/2021) History of Problems with Anesthesia: No Social History Social History Household Members: Spouse Household Members Other:: Spouse: Antoni Housing: House Are you a primary children's zoo caretaker to a significant other at home: No Do you presently have visiting nurse or other home services: No Alcohol intake: never Patient Tobacco Use Status: Former Tobacco user Tobacco use type: Cigarette Years Smoked: 10 e-Cigarette/Vaping Use: Never Used Second Hand Smoke Exposure: No Advance Directives Date on File: 01/28/21 service: No Current occupational status: disabled Cognitive needs: No Hearing needs: No Vision needs: No Meds Allergies Allergy/AdvReac Type Severity Reaction Status Date / Time No Known Allergies Allergy Verified 06/16/24 09:46 Active Medications: Current Medications Acetaminophen (Acetaminophen 325 Mg Tablet) 650 mg PO Q6H PRN PRN Reason: Pain, Mild 1-3,fever,headache Last Admin: 06/19/24 20:26 Dose: 650 mg Levetiracetam 250 mg/ Sodium (Chloride) 102.5 mls @ 410 mls/hr IV BID [facility] Last Infusion: 06/20/24 10:32 Dose: Infused Dextrose/Lactated Ringer's (D5lr) 1,000 mls @ 80 mls/hr IVCONT .[id number] [facility] Last Infusion: 06/20/24 09:41 Dose: Infused Naloxone HCl (Naloxone Hcl 0.4 Mg/Ml Vial) 0.04 mg IVPUSH Q5M PRN PRN Reason: Excessive sedation or RR < 8 Ondansetron HCl (Ondansetron Hcl 4 Mg/2 Ml Vial) 4 mg IVPUSH Q8H PRN PRN Reason: Nausea and Vomiting Sodium Chloride (0.9 % Sodium Chloride Flush 3 Ml Syringe) 3 ml IVFLUSH QSHIFT [facility] Last Admin: 06/20/24 08:48 Dose: Not Given Home Medications ?Medication ?Instructions ?Recorded ?Confirmed ?Last Taken ?Type cholecalciferol (vitamin D3) 25 25 mcg PO DAILY 04/06/20 06/16/24 1 Week Ago History mcg (1,000 unit) tablet (Vitamin ~06/09/24 D3) lancets 33 gauge #100 ea 08/15/20 03/29/24 Unknown History pen needle, diabetic 31 gauge x #1,200 ea 08/15/20 03/29/24 Unknown History 11/04 levetiracetam 250 mg tablet 250 mg PO BID 06/16/24 06/16/24 1 Week Ago History ~06/09/24 ondansetron 8 mg disintegrating 8 mg PO Q8H PRN Nausea And Vomiting 06/16/24 06/16/24 1 Week Ago History tablet ~06/09/24 pantoprazole 40 mg tablet,delayed 40 mg PO DAILY@0630 06/16/24 06/16/24 1 Week Ago History release ~06/09/24 Exam Height,Weight and Vital Signs: Height 5 ft 7 in Weight 71.6 kg Last Vital Signs Temp 97.2 F 06/20/24 07:45 Pulse 80 06/20/24 07:45 Resp 16 06/20/24 07:45 BP 103/61 06/20/24 07:45 Pulse Ox 95 06/20/24 07:45 O2 Del Method Room Air 06/20/24 07:45 O2 Flow Rate 6 06/17/24 14:27 Pertinent Lab Results Pertinent Lab Results: Laboratory Tests 06/16/24 06/16/24 06/16/24 10:07 12:19 17:52 WBC 7.8 RBC 5.19 Hgb 16.8 Hct 47.2 MCV 90.9 MCH 32.4 MCHC 35.6 RDW 14.6 Plt Count 95 L D MPV 10.0 Immature Gran % (Auto) 0.3 Neut % (Auto) 75.5 H Lymph % (Auto) 14.0 L [place] % (Auto) 7.4 Eos % (Auto) 1.9 Baso % (Auto) 0.9 Lymph # (Auto) 1.1 L [place] # (Auto) 0.6 Eos # (Auto) 0.2 Baso # (Auto) 0.1 Abs Immat Gran (auto) 0.02 Absolute Neuts (auto) 5.9 Absolute Nucleated RBC 0.000 Nucleated RBC % (auto) 0.0 PT 13.0 H INR 1.1 Sodium 144 Potassium 3.4 Chloride 109 H Carbon Dioxide 31 H Anion Gap 7 L BUN 18 H Creatinine 0.87 Estim Creat Clear Calc 81.2 Estimated GFR > 60 POC Glucose 194 H 252 H Random Glucose 237 H Calcium 9.1 Magnesium 1.8 Total Bilirubin 2.2 H Direct Bilirubin 0.7 H AST 44 H ALT 37 Alkaline Phosphatase 99 Troponin I High Sens < 2.7 Total Protein 6.9 Albumin 3.5 Lipase 22 Urine Color Urine Appearance Urine pH Ur Specific [place] Urine Protein Urine Glucose (UA) Urine Ketones Urine Blood Urine Nitrite Ur Leukocyte Esterase Urine RBC Urine WBC Ur Squamous Epith Cells Urine Bacteria Hyaline Casts Influenza Type A (PCR) NEGATIVE Influenza Type B (PCR) NEGATIVE RSV RNA Qual (PCR) NEGATIVE SARS-CoV-2 RNA (RT-PCR) NEGATIVE Blood Type Antibody Screen 06/17/24 06/17/24 06/17/24 00:30 01:09 05:20 WBC 4.2 L RBC 4.09 L D Hgb 13.3 L D Hct 37.4 L D MCV 91.4 MCH 32.5 MCHC 35.6 RDW 14.1 Plt Count 47 L D MPV 10.1 Immature Gran % (Auto) Neut % (Auto) Lymph % (Auto) [place] % (Auto) Eos % (Auto) Baso % (Auto) Lymph # (Auto) [place] # (Auto) Eos # (Auto) Baso # (Auto) Abs Immat Gran (auto) Absolute Neuts (auto) Absolute Nucleated RBC 0.000 Nucleated RBC % (auto) 0.0 PT INR Sodium 144 Potassium 3.3 Chloride 110 H Carbon Dioxide 27 Anion Gap 10 L BUN 15 Creatinine 0.69 Estim Creat Clear Calc 102.4 Estimated GFR > 60 POC Glucose 257 H Random Glucose 256 H Calcium 7.9 L D Magnesium Total Bilirubin Direct Bilirubin AST ALT Alkaline Phosphatase Troponin I High Sens Total Protein Albumin Lipase Urine Color Dark Yellow Urine Appearance Clear Urine pH 6.0 Ur Specific [place] >= 1.030 H Urine Protein Negative Urine Glucose (UA) >=1000 H Urine Ketones Trace Urine Blood Negative Urine Nitrite Negative Ur Leukocyte Esterase Negative Urine RBC 0-2 Urine WBC 0-5 Ur Squamous Epith Cells 0-2 Urine Bacteria None Seen Hyaline Casts 0-2 Influenza Type A (PCR) Influenza Type B (PCR) RSV RNA Qual (PCR) SARS-CoV-2 RNA (RT-PCR) Blood Type Antibody Screen 06/17/24 06/17/24 06/17/24 05:58 10:23 10:40 WBC RBC Hgb Hct MCV MCH MCHC RDW Plt Count MPV Immature Gran % (Auto) Neut % (Auto) Lymph % (Auto) [place] % (Auto) Eos % (Auto) Baso % (Auto) Lymph # (Auto) [place] # (Auto) Eos # (Auto) Baso # (Auto) Abs Immat Gran (auto) Absolute Neuts (auto) Absolute Nucleated RBC Nucleated RBC % (auto) PT INR Sodium Potassium Chloride Carbon Dioxide Anion Gap BUN Creatinine Estim Creat Clear Calc Estimated GFR POC Glucose 239 H 202 H Random Glucose Calcium Magnesium Total Bilirubin Direct Bilirubin AST ALT Alkaline Phosphatase Troponin I High Sens Total Protein Albumin Lipase Urine Color Urine Appearance Urine pH Ur Specific [place] Urine Protein Urine Glucose (UA) Urine Ketones Urine Blood Urine Nitrite Ur Leukocyte Esterase Urine RBC Urine WBC Ur Squamous Epith Cells Urine Bacteria Hyaline Casts Influenza Type A (PCR) Influenza Type B (PCR) RSV RNA Qual (PCR) SARS-CoV-2 RNA (RT-PCR) Blood Type O Positive Antibody Screen NEGATIVE 06/17/24 06/17/24 06/17/24 12:16 17:28 23:31 WBC RBC Hgb Hct MCV MCH MCHC RDW Plt Count MPV Immature Gran % (Auto) Neut % (Auto) Lymph % (Auto) [place] % (Auto) Eos % (Auto) Baso % (Auto) Lymph # (Auto) [place] # (Auto) Eos # (Auto) Baso # (Auto) Abs Immat Gran (auto) Absolute Neuts (auto) Absolute Nucleated RBC Nucleated RBC % (auto) PT INR Sodium Potassium Chloride Carbon Dioxide Anion Gap BUN Creatinine Estim Creat Clear Calc Estimated GFR POC Glucose 193 H 283 H 284 H Random Glucose Calcium Magnesium Total Bilirubin Direct Bilirubin AST ALT Alkaline Phosphatase Troponin I High Sens Total Protein Albumin Lipase Urine Color Urine Appearance Urine pH Ur Specific [place] Urine Protein Urine Glucose (UA) Urine Ketones Urine Blood Urine Nitrite Ur Leukocyte Esterase Urine RBC Urine WBC Ur Squamous Epith Cells Urine Bacteria Hyaline Casts Influenza Type A (PCR) Influenza Type B (PCR) RSV RNA Qual (PCR) SARS-CoV-2 RNA (RT-PCR) Blood Type Antibody Screen 06/18/24 06/18/24 06/18/24 05:38 11:23 18:01 WBC RBC Hgb Hct MCV MCH MCHC RDW Plt Count MPV Immature Gran % (Auto) Neut % (Auto) Lymph % (Auto) [place] % (Auto) Eos % (Auto) Baso % (Auto) Lymph # (Auto) [place] # (Auto) Eos # (Auto) Baso # (Auto) Abs Immat Gran (auto) Absolute Neuts (auto) Absolute Nucleated RBC Nucleated RBC % (auto) PT INR Sodium Potassium Chloride Carbon Dioxide Anion Gap BUN Creatinine Estim Creat Clear Calc Estimated GFR POC Glucose 285 H 348 H 270 H Random Glucose Calcium Magnesium Total Bilirubin Direct Bilirubin AST ALT Alkaline Phosphatase Troponin I High Sens Total Protein Albumin Lipase Urine Color Urine Appearance Urine pH Ur Specific [place] Urine Protein Urine Glucose (UA) Urine Ketones Urine Blood Urine Nitrite Ur Leukocyte Esterase Urine RBC Urine WBC Ur Squamous Epith Cells Urine Bacteria Hyaline Casts Influenza Type A (PCR) Influenza Type B (PCR) RSV RNA Qual (PCR) SARS-CoV-2 RNA (RT-PCR) Blood Type Antibody Screen 06/18/24 06/19/24 06/19/24 23:39 05:53 07:19 WBC 3.4 L RBC 4.05 L Hgb 12.9 L Hct 36.3 L MCV 89.6 MCH 31.9 MCHC 35.5 RDW 13.9 Plt Count 41 L MPV 10.4 Immature Gran % (Auto) 0.0 Neut % (Auto) 65.3 Lymph % (Auto) 24.2 [place] % (Auto) 6.6 Eos % (Auto) 3.3 Baso % (Auto) 0.6 Lymph # (Auto) 0.8 L [place] # (Auto) 0.2 Eos # (Auto) 0.1 Baso # (Auto) 0.0 Abs Immat Gran (auto) 0.00 Absolute Neuts (auto) 2.2 Absolute Nucleated RBC 0.000 Nucleated RBC % (auto) 0.0 PT INR Sodium 145 Potassium 3.2 L Chloride 116 H Carbon Dioxide 25 Anion Gap 7 L BUN 9 Creatinine 0.67 Estim Creat Clear Calc 105.5 Estimated GFR > 60 POC Glucose 220 H 221 H Random Glucose 258 H Calcium 7.8 L Magnesium Total Bilirubin Direct Bilirubin AST ALT Alkaline Phosphatase Troponin I High Sens Total Protein Albumin Lipase Urine Color Urine Appearance Urine pH Ur Specific [place] Urine Protein Urine Glucose (UA) Urine Ketones Urine Blood Urine Nitrite Ur Leukocyte Esterase Urine RBC Urine WBC Ur Squamous Epith Cells Urine Bacteria Hyaline Casts Influenza Type A (PCR) Influenza Type B (PCR) RSV RNA Qual (PCR) SARS-CoV-2 RNA (RT-PCR) Blood Type Antibody Screen 06/19/24 06/19/24 06/19/24 12:01 17:41 23:43 WBC RBC Hgb Hct MCV MCH MCHC RDW Plt Count MPV Immature Gran % (Auto) Neut % (Auto) Lymph % (Auto) [place] % (Auto) Eos % (Auto) Baso % (Auto) Lymph # (Auto) [place] # (Auto) Eos # (Auto) Baso # (Auto) Abs Immat Gran (auto) Absolute Neuts (auto) Absolute Nucleated RBC Nucleated RBC % (auto) PT INR Sodium Potassium Chloride Carbon Dioxide Anion Gap BUN Creatinine Estim Creat Clear Calc Estimated GFR POC Glucose 237 H 226 H 234 H Random Glucose Calcium Magnesium Total Bilirubin Direct Bilirubin AST ALT Alkaline Phosphatase Troponin I High Sens Total Protein Albumin Lipase Urine Color Urine Appearance Urine pH Ur Specific [place] Urine Protein Urine Glucose (UA) Urine Ketones Urine Blood Urine Nitrite Ur Leukocyte Esterase Urine RBC Urine WBC Ur Squamous Epith Cells Urine Bacteria Hyaline Casts Influenza Type A (PCR) Influenza Type B (PCR) RSV RNA Qual (PCR) SARS-CoV-2 RNA (RT-PCR) Blood Type Antibody Screen 06/20/24 06/20/24 06/20/24 05:32 05:59 08:20 WBC 3.9 L RBC 4.01 L Hgb 13.1 L Hct 35.9 L MCV 89.5 MCH 32.7 MCHC 36.5 H RDW 13.9 Plt Count 45 L MPV 10.1 Immature Gran % (Auto) 0.3 Neut % (Auto) 69.0 Lymph % (Auto) 19.3 L [place] % (Auto) 7.5 Eos % (Auto) 3.4 Baso % (Auto) 0.5 Lymph # (Auto) 0.8 L [place] # (Auto) 0.3 Eos # (Auto) 0.1 Baso # (Auto) 0.0 Abs Immat Gran (auto) 0.01 Absolute Neuts (auto) 2.7 Absolute Nucleated RBC 0.000 Nucleated RBC % (auto) 0.0 PT INR Sodium 145 Potassium 3.4 Chloride 116 H Carbon Dioxide 25 Anion Gap 7 L BUN 10 Creatinine 0.64 Estim Creat Clear Calc 110.4 Estimated GFR > 60 POC Glucose 227 H Random Glucose 250 H Calcium 7.8 L Magnesium Total Bilirubin Direct Bilirubin AST ALT Alkaline Phosphatase Troponin I High Sens Total Protein Albumin Lipase Urine Color Urine Appearance Urine pH Ur Specific [place] Urine Protein Urine Glucose (UA) Urine Ketones Urine Blood Urine Nitrite Ur Leukocyte Esterase Urine RBC Urine WBC Ur Squamous Epith Cells Urine Bacteria Hyaline Casts Influenza Type A (PCR) Influenza Type B (PCR) RSV RNA Qual (PCR) SARS-CoV-2 RNA (RT-PCR) Blood Type O Positive Antibody Screen NEGATIVE Airway Mallampati Class: III TM Dist: >3cm Neck ROM: Full Assessment and Plan Final Anesthetic Review Family History of Problems with Anesthesia: No History of Problems with Anesthesia: No
[2024-06-20] MEDS: Dextrose 5 % and Lactated Ring 1,000 ML 80 ML IVCONT (10:52)
--- NOTE | 2024-06-20 11:19 | MHC.CLN ---
Addendum entered by Bonny Spear, ISABEL 06/20/24 13:58: RECOMMEND TUBE FEED FORMULA GLUCERNA 1.0. GLUCERNA FORMULARY DUE TO DX DM AND ELEVATED RANDOM GLUCOSE AND POC GLUCOSE. Original Note: NUTRITION NPO FOR PEG PLACEMENT. PATIENT REQUIRES NUTRITION/HYDRATION VIA PEG DUE TO ESOPHAGEAL CANCER WITH DYSPHAGIA AND ODYNOPHAGIA. NUTRITION DX NON SEVERE MALNUTRITION IN THE CONTEXT OF CHRONIC ILLNESS. PATIENT WITH SIGNIFICANT WEIGHT LOSS AND RECENT VERY POOR PO INTAKE. START TF WHEN ABLE. PATIENT IS AT RISK OF REFEEDING. RECOMMEND GLUCERNA AT 80 ML PER HOUR WITH FREE WATER FLUSHES 240 ML Q 8 HOURS. PROVIDES 1920 KCALS (26.8 KCALS/KG); 80 G PROTEIN (1.1 G/KG); 2333 ML FREE WATER FROM FORMULA AND FLUSHES (32.6 ML/KG). START TF GLUCERNA AT 20 ML PER HOUR, INCREASE 10 ML EVERY 4 HOURS TO MAX GOAL RATE OF 80 ML PER HOUR. MONITOR TUBE FEED TOLERANCE AND LABS. SEE CLINICAL NUTRITION ASSESSMENT 06/20/24.
[2024-06-20 11:34] LABS: Glucose, Whole Blood 194 mg/dL (60-115)
[2024-06-20] MEDS: Lactated Ringers 1,000 ML 80 ML IVCONT ×2 (12:40→21:01)
--- NOTE | 2024-06-20 13:40 | MHC.CM.PN ---
EM[facility] REVIEWED AND PER MD ROUNDS, PT WILL HAVE PEG TUBE PLACED TODAY. [facility] WILL BE HI VENDOR/ REFERRAL SENT TO [facility]. CM MET WITH FABIAN AT BEDSIDE WHO IS WILLING TO LEARN TUBE FEEDINGS. [facility] LIAISON IS AWARE THAT A TEACH WILL BE NEEDED. CM WILL CONTINUE TO FOLLOW FOR ANY CHANGE TO DC PLAN/NEEDS.
[2024-06-20 13:55] LABS: Glucose, Whole Blood 221 mg/dL (60-115)
--- NOTE | 2024-06-20 14:01 | P.PNIM_ITS ---
Subjective Subjective Date of Service: 06/20/24 Interval History: seen and evaluated unable to tolerate PO pain fairly controlled Plan for G-tube placement today no other events Review of Systems Review of Systems: Yes all other systems are reviewed and are negative Physical Exam 2 Vital Signs: Vital Signs: Last Vital Signs Temp 97.0 F 06/20/24 12:38 Pulse 83 06/20/24 12:38 Resp 16 06/20/24 12:38 BP 112/73 06/20/24 12:38 Pulse Ox 97 06/20/24 12:00 O2 Del Method Room Air 06/20/24 12:00 O2 Flow Rate 6 06/17/24 14:27 BMI result Body Mass Index 24.7 Const: Other: Constitutional : Awake, interactive, not in distress Neck : Normal inspection, Supple Cardiovascular : RRR, no JVP, no lower extremity edema Respiratory : good bilateral air entry, no crackles, wheezes or rhonchi Gastrointestinal: soft, lax, Normal bowel sounds, Non tender Skin : Warm, Dry Neurological : Alert & oriented x3, No focal deficit Objective Data Active Medications Acetaminophen (Acetaminophen 325 Mg Tablet) 650 mg PO Q6H PRN PRN Reason: Pain, Mild 1-3,fever,headache Last Admin: 06/19/24 20:26 Dose: 650 mg Documented By: RICKY Levetiracetam 250 mg/ Sodium (Chloride) 102.5 mls @ 410 mls/hr IV BID [facility] Last Infusion: 06/20/24 10:32 Dose: Infused Documented By: BRYAN Dextrose/Lactated Ringer's (D5lr) 1,000 mls @ 80 mls/hr IVCONT .[id number] [facility] Last Admin: 06/20/24 10:52 Dose: 80 mls/hr Documented By: BRYAN Lactated Ringer's (Lr) 1,000 mls @ 80 mls/hr IVCONT .[id number] [facility] Last Admin: 06/20/24 12:40 Dose: 80 mls/hr Documented By: INGRIS Naloxone HCl (Naloxone Hcl 0.4 Mg/Ml Vial) 0.04 mg IVPUSH Q5M PRN PRN Reason: Excessive sedation or RR < 8 Ondansetron HCl (Ondansetron Hcl 4 Mg/2 Ml Vial) 4 mg IVPUSH Q8H PRN PRN Reason: Nausea and Vomiting Sodium Chloride (0.9 % Sodium Chloride Flush 3 Ml Syringe) 3 ml IVFLUSH QSHIFT [facility] Last Admin: 06/20/24 08:48 Dose: Not Given Documented By: BRYAN Non-Admin Reason: IV Running Labs 06/20/24 05:59 06/20/24 05:59 Labs: Laboratory Results - last 24 hr 06/19/24 06/19/24 06/20/24 17:41 23:43 05:32 MCV MCH MCHC RDW Plt Count MPV Immature Gran % (Auto) Neut % (Auto) Lymph % (Auto) [place] % (Auto) Eos % (Auto) Baso % (Auto) Lymph # (Auto) [place] # (Auto) Eos # (Auto) Baso # (Auto) Abs Immat Gran (auto) Absolute Neuts (auto) Absolute Nucleated RBC Nucleated RBC % (auto) Anion Gap Estim Creat Clear Calc Estimated GFR POC Glucose 226 H 234 H 227 H Random Glucose Calcium Blood Type Antibody Screen 06/20/24 06/20/24 06/20/24 05:59 08:20 11:22 MCV 89.5 MCH 32.7 MCHC 36.5 H RDW 13.9 Plt Count 45 L MPV 10.1 Immature Gran % (Auto) 0.3 Neut % (Auto) 69.0 Lymph % (Auto) 19.3 L [place] % (Auto) 7.5 Eos % (Auto) 3.4 Baso % (Auto) 0.5 Lymph # (Auto) 0.8 L [place] # (Auto) 0.3 Eos # (Auto) 0.1 Baso # (Auto) 0.0 Abs Immat Gran (auto) 0.01 Absolute Neuts (auto) 2.7 Absolute Nucleated RBC 0.000 Nucleated RBC % (auto) 0.0 Anion Gap 7 L Estim Creat Clear Calc 110.4 Estimated GFR > 60 POC Glucose 194 H Random Glucose 250 H Calcium 7.8 L Blood Type O Positive Antibody Screen NEGATIVE 06/20/24 13:51 MCV MCH MCHC RDW Plt Count MPV Immature Gran % (Auto) Neut % (Auto) Lymph % (Auto) [place] % (Auto) Eos % (Auto) Baso % (Auto) Lymph # (Auto) [place] # (Auto) Eos # (Auto) Baso # (Auto) Abs Immat Gran (auto) Absolute Neuts (auto) Absolute Nucleated RBC Nucleated RBC % (auto) Anion Gap Estim Creat Clear Calc Estimated GFR POC Glucose 221 H Random Glucose Calcium Blood Type Antibody Screen Assessment and Plan (1) Swallowing problem: Status: Acute (2) Adult failure to thrive: Status: Acute Plan 63-year-old male with multiple medical problems including 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 He presents with several weeks of dysphagia/odynophagia even to liquids. He has been unable to maintain his nutrition and hydration necessitating insertion of a PEG tube. # Odynophagia/dysphagia 2/2 esophageal cancer Intolerant to even liquids hence will require surgical PEG tube insertion as endoscopic approache did not work GI did EGD showing large mass, pending pathology surg following for PEG tube on today IV fluids, IV PPI # Thrombocytopenia PLT 46k ordered PLT Transfusion prior to procedure # Acute hypokalemia resolved w replacement , follow BMP #Dehydration continue IV fluids # Moderate protein malnutrition G-tube placement today, to start tube feed tomorrow can add Ensure and high protein diet # History of diabetes point of care is q.6 hours; hold off sliding scale at this time # History of seizures IV keppra # Esophageal adenocarcinoma Outpatient follow-up with his oncologist # Cirrhosis s/p TIPS Full Code DVT pptx mechanical due to planned procedure and low PLT reason for on going hospitalization: pt requires platelet transfusion prior to his procedures, unable to tolerate PO and requires feeding tube Quality Stroke Does the patient have a stroke diagnosis?: No VTE Prior VTE?: No VTE Risk Level:: Medical - moderate - high VTE Device Contraindication: N/A - Device Ordered VTE Drug Contraindication: N/A - Med Ordered
--- NOTE | 2024-06-20 14:58 | P.OP_ITS ---
Operative Note Operative Note Date of Service: 06/20/24 Narrative: Preop diagnosis: Esophageal cancer with obstruction Postop diagnosis: The same Procedure: Open gastrostomy tube placement Surgeon: Pedro Sahu MD real estate administrative assistant: MELINDA Maurer The patient is a 63-year-old male with note of recurrent esophageal adenocarcinoma the distal esophagus. In view of this, he has been unable to swallow anymore. He had failed the PEG tube placement. I was therefore requested to put a a gastrostomy tube for feeding surgically. He understood the technique of this procedure as well as the risks, benefits, and alternatives He was brought to the operating room. He was placed supine under general anesthesia via endotracheal tube. The abdomen was prepped and draped in the usual sterile fashion. A surgical time-out was done. The patient received cefazolin 2 g IV preoperatively I made an upper midline incision with a blade 15. This was carried down with electrocautery through the full-thickness of the skin and subcutaneous fat down to the fascia. The fascia was incised. The peritoneum was entered. We retracted the abdominal wall in the left to expose the omentum. We traced this and pulled this up into the field. By doing so was able to visualize the ant erior wall of the stomach. This was actually high up in the upper abdomen. The transverse colon was also identified below this. We had limited exposure initially so I had to extend the incision superiorly. By doing so was able to have better exposure of the anterior stomach wall. The stomach was being pulled down using a Martha clamp. I chose my point of incision for the gastrostomy. I created 2 pursestring sutures with Polysorb 2-0. I made a short incision in the middle of this pursestring to enter the lumen of the stomach. lumen. I made a short incision in the left upper quadrant. I created a tract using a tonsil clamp. I pulled the rosanna tube Mauritian 20 through this and this was inserted into the gastrostomy site into the lumen of the stomach. I tightened the inner pursestring. I then tightened the 2nd pursestring to imbricate the 1st pursestring I inflated the balloon of the gastrostomy tube. We pulled this up into the abdominal wall. I applied gastropexy sutures with Polysorb 2-0 through the stomach wall into the peritoneum surrounding the gastrostomy. I examined the pexy site and this appeared to be secure. We then tightened the external bolster as well on the skin. We observed for hemostasis. I noted as well that the liver was cirrhotic markedly Once hemostasis was confirmed, I proceeded to then closed the fascia with a running Maxon 1 stitch. Skin closure was achieved with skin [place]. I infiltrated the area with Marcaine 0.5% for postop analgesia. Dressings were applied. The procedure was completed. The patient tolerated procedure well. There were no immediate complications. Initial and final counts of sponges and instruments were correct. Estimated blood loss was about 25 cc. The patient was extubated without difficulty and transferred to the recovery room with stable vital signs.
[2024-06-20] MEDS: fentaNYL citrate/PF 100 MCG/2 ML VIAL 25 MCG IVPUSH ×6 (15:15→15:48)
--- NOTE | 2024-06-20 16:11 | PM.GIPN ---
Subjective Subjective Date of Service: 06/20/24 Interval History: Mr and Mrs Garnda are seen this am prior to G tube placement. They are optimistic regarding the planned procedure. Critical Care Time (minutes): 0 Physical Exam Vital Signs: Vital Signs: Last Vital Signs Temp 97.3 F 06/20/24 15:55 Pulse 75 06/20/24 15:55 Resp 16 06/20/24 15:55 BP 116/68 06/20/24 15:55 Pulse Ox 98 06/20/24 15:55 O2 Del Method Room Air 06/20/24 15:55 O2 Flow Rate 2 06/20/24 15:30 BMI result Body Mass Index 24.7 GI: Other: abdomen is soft and nontender Objective Data Labs 06/20/24 05:59 06/20/24 05:59 Labs: Laboratory Results - last 24 hr 06/19/24 06/19/24 06/20/24 17:41 23:43 05:32 WBC RBC Hgb Hct MCV MCH MCHC RDW Plt Count MPV Immature Gran % (Auto) Neut % (Auto) Lymph % (Auto) [place] % (Auto) Eos % (Auto) Baso % (Auto) Lymph # (Auto) [place] # (Auto) Eos # (Auto) Baso # (Auto) Abs Immat Gran (auto) Absolute Neuts (auto) Absolute Nucleated RBC Nucleated RBC % (auto) Sodium Potassium Chloride Carbon Dioxide Anion Gap BUN Creatinine Estim Creat Clear Calc Estimated GFR POC Glucose 226 H 234 H 227 H Random Glucose Calcium Blood Type Antibody Screen 06/20/24 06/20/24 06/20/24 05:59 08:20 11:22 WBC 3.9 L RBC 4.01 L Hgb 13.1 L Hct 35.9 L MCV 89.5 MCH 32.7 MCHC 36.5 H RDW 13.9 Plt Count 45 L MPV 10.1 Immature Gran % (Auto) 0.3 Neut % (Auto) 69.0 Lymph % (Auto) 19.3 L [place] % (Auto) 7.5 Eos % (Auto) 3.4 Baso % (Auto) 0.5 Lymph # (Auto) 0.8 L [place] # (Auto) 0.3 Eos # (Auto) 0.1 Baso # (Auto) 0.0 Abs Immat Gran (auto) 0.01 Absolute Neuts (auto) 2.7 Absolute Nucleated RBC 0.000 Nucleated RBC % (auto) 0.0 Sodium 145 Potassium 3.4 Chloride 116 H Carbon Dioxide 25 Anion Gap 7 L BUN 10 Creatinine 0.64 Estim Creat Clear Calc 110.4 Estimated GFR > 60 POC Glucose 194 H Random Glucose 250 H Calcium 7.8 L Blood Type O Positive Antibody Screen NEGATIVE 06/20/24 13:51 WBC RBC Hgb Hct MCV MCH MCHC RDW Plt Count MPV Immature Gran % (Auto) Neut % (Auto) Lymph % (Auto) [place] % (Auto) Eos % (Auto) Baso % (Auto) Lymph # (Auto) [place] # (Auto) Eos # (Auto) Baso # (Auto) Abs Immat Gran (auto) Absolute Neuts (auto) Absolute Nucleated RBC Nucleated RBC % (auto) Sodium Potassium Chloride Carbon Dioxide Anion Gap BUN Creatinine Estim Creat Clear Calc Estimated GFR POC Glucose 221 H Random Glucose Calcium Blood Type Antibody Screen Procedures Date of Service Date of Service: 06/20/24 Progress Note: A&P Assessment and plan (1) Esophageal mass: Status: Acute Assessment and Plan: We discussed his clinical condition and the planned procedure today. They are comfortable with proceeding. Time Spent With Patient Time: Total time managing care of this patient today ____ minutes. Quality Stroke Does the patient have a stroke diagnosis?: No VTE Prior VTE?: No VTE Risk Level:: Medical - moderate - high VTE Device Contraindication: N/A - Device Ordered VTE Drug Contraindication: N/A - Med Ordered
--- NOTE | 2024-06-20 16:33 | PM.EVENT ---
Event Note Date of Service: 06/21/24 Event Note: Seen on afternoon rounds Status post open gastrostomy tube placement this afternoon Seems to have adequate pain control now Stable vital signs Abdomen soft Pain Management - IV morphine, Ofirmev Doing well postop Antoni updated Would wait for 48 hours prior to starting tube feeds Time Spent With Patient Time: Total time managing care of this patient today ____ minutes.
[2024-06-20] MEDS: 0.9 % Sodium Chloride Flush 3 ML SYRINGE IVFLUSH ×2 (16:51→20:34)
[2024-06-20] MEDS: Acetaminophen 1,000 MG/100 ML PIGGYBACK 400 MG IV ×2 (16:53→22:34)
[2024-06-20 18:12] LABS: Glucose, Whole Blood 241 mg/dL (60-115)
[2024-06-20] MEDS: Morphine Sulfate 4 MG/ML CARTRIDGE IVPUSH (21:05)
[2024-06-21] VITALS: BP 114/69; PULSE 84; RESP 18; TEMP 36.6; O2SAT 94
[2024-06-21 00:07] LABS: Glucose, Whole Blood 244 mg/dL (60-115)
[2024-06-21 03:32] VITALS: BP 116/83; PULSE 76; RESP 18; TEMP 37.1; O2SAT 95
[2024-06-21] MEDS: Acetaminophen 1,000 MG/100 ML PIGGYBACK 400 MG IV ×4 (04:15→22:04)
[2024-06-21 05:54] LABS: Glucose, Whole Blood 211 mg/dL (60-115)
[2024-06-21 05:56] LABS: PLT CLUMP 1; SCAN SMEAR FLAG 1
[2024-06-21 05:58] LABS: Basophils Percent Auto 0.3 % (0-2); Eosinophils Percent Auto 0.1 % (0-4); Hematocrit 36.4 % (42.0-52.0); Hemoglobin 13.3 g/dl (14.0-18.0); Imm Gran Abs Auto 0.02 X10*3/uL (0.00-0.03); Imm Gran Pct Auto 0.3 % (0.0-0.4); Lymphocytes Absolute Auto 0.7 X10*3/uL (1.2-4.9); Lymphocytes Percent Auto 9.4 % (20-40); MANUAL DIFF FLAG SCAN; Mean Corpuscular HGB Conc 36.5 g/dl (31.0-36.0); Mean Corpuscular Hemoglobin 32.5 pg (27.0-33.0); Mean Platelet Volume 10.6 fL (9.4-12.4); Monocytes Absolute Auto 0.6 X10*3/uL (0.1-1.2); Monocytes Percent Auto 7.9 % (2-11); Neutrophils Absolute Auto 6.1 x10*3/uL (2.0-8.3); Red Blood Count 4.09 X10*6/uL (4.60-5.80); Red Cell Distribution Width 13.9 % (11.0-16.0)
[2024-06-21 05:59] LABS: Platelet Count 60 X10*3/uL (160-400); White Blood Count 7.4 X10*3/uL (4.8-10.8)
[2024-06-21 06:14] LABS: Alanine Aminotransferase 33 U/L (0-40); Albumin Level 2.3 g/dL (3.5-5.0); Alkaline Phosphatase 79 U/L (39-117); Anion Gap 9 (12-20); Aspartate Amino Transferase 42 U/L (5-37); Bilirubin Direct 0.7 mg/dL (0.0-0.5); Bilirubin Total 1.3 mg/dL (0.0-1.0); Blood Urea Nitrogen 13 mg/dL (9-16); Carbon Dioxide 25 mmol/L (22-29); Chloride 113 mmol/L (96-108); Creatinine Clr Calc Pharmacy 105.5; Estimated Glomerular Filt Rate > 60; Glucose Random 227 mg/dL (60-115); Potassium 4.2 mmol/L (3.3-5.1); Sodium 143 mmol/L (135-145); Total Protein 4.7 g/dL (6.5-8.0)
[2024-06-21 06:25] LABS: SLIDE REVIEW VERIFIED
[2024-06-21 07:15] VITALS: BP 101/57; PULSE 72; RESP 14; TEMP 36.9; O2SAT 96
--- NOTE | 2024-06-21 07:53 | PM.PNGS ---
Subjective Subjective Date of Service: 06/21/24 Interval history: Says he is okay this morning Has had adequate pain control although states that he is needs his pain med Physical Exam Vital Signs: Vital Signs: Last Vital Signs Temp 98.4 F 06/21/24 07:15 Pulse 72 06/21/24 07:15 Resp 14 06/21/24 07:15 BP 101/57 L 06/21/24 07:15 Pulse Ox 96 06/21/24 07:15 O2 Del Method Room Air 06/21/24 07:15 O2 Flow Rate 2 06/20/24 15:30 BMI result Body Mass Index 24.7 Const: General: comfortable and no acute distress Resp: Effort & Inspection: normal respiratory effort Cardio: Rate: regular rate GI: Other: G-tube in place dressings dry Inspection: No distended Palpation (GI): Soft to palpation, not firm and no guarding Objective Data Active Medications Acetaminophen (Acetaminophen 325 Mg Tablet) 650 mg PO Q6H PRN PRN Reason: Pain, Mild 1-3,fever,headache Last Admin: 06/19/24 20:26 Dose: 650 mg Documented By: RICKY Levetiracetam 250 mg/ Sodium (Chloride) 102.5 mls @ 410 mls/hr IV BID [facility] Last Infusion: 06/20/24 20:50 Dose: Infused Documented By: JERI Lactated Ringer's (Lr) 1,000 mls @ 80 mls/hr IVCONT .[id number] [facility] Last Admin: 06/20/24 21:01 Dose: 80 mls/hr Documented By: JERI Acetaminophen (Ofirmev) 1,000 mg in 100 mls @ 400 mls/hr IV Q6H [facility] Stop: 06/21/24 10:41 Last Infusion: 06/21/24 04:30 Dose: Infused Documented By: JERI Morphine Sulfate (Morphine Sulfate 4 Mg/Ml Cartridge) 4 mg IVPUSH Q3H PRN; Protocol PRN Reason: Pain, Severe (Pain Scale 7-10) Last Admin: 06/20/24 21:05 Dose: 4 mg Documented By: JERI Naloxone HCl (Naloxone Hcl 0.4 Mg/Ml Vial) 0.04 mg IVPUSH Q5M PRN PRN Reason: Excessive sedation or RR < 8 Ondansetron HCl (Ondansetron Hcl 4 Mg/2 Ml Vial) 4 mg IVPUSH Q8H PRN PRN Reason: Nausea and Vomiting Sodium Chloride (0.9 % Sodium Chloride Flush 3 Ml Syringe) 3 ml IVFLUSH QSHIFT [facility] Last Admin: 06/20/24 20:34 Dose: 3 ml Documented By: JERI Labs 06/21/24 05:24 06/21/24 05:24 Labs: Laboratory Results - last 24 hr 06/20/24 06/20/24 06/20/24 08:20 11:22 13:51 MCV MCH MCHC RDW Plt Count MPV Immature Gran % (Auto) Neut % (Auto) Lymph % (Auto) [place] % (Auto) Eos % (Auto) Baso % (Auto) Lymph # (Auto) [place] # (Auto) Eos # (Auto) Baso # (Auto) Abs Immat Gran (auto) Absolute Neuts (auto) Absolute Nucleated RBC Nucleated RBC % (auto) Smear Tech's Comments Anion Gap Estim Creat Clear Calc Estimated GFR POC Glucose 194 H 221 H Random Glucose Calcium Total Bilirubin Direct Bilirubin AST ALT Alkaline Phosphatase Total Protein Albumin Blood Type O Positive Antibody Screen NEGATIVE 06/20/24 06/20/24 06/21/24 18:09 23:47 05:24 MCV 89.0 MCH 32.5 MCHC 36.5 H RDW 13.9 Plt Count 60 L D MPV 10.6 Immature Gran % (Auto) 0.3 Neut % (Auto) 82.0 H Lymph % (Auto) 9.4 L [place] % (Auto) 7.9 Eos % (Auto) 0.1 Baso % (Auto) 0.3 Lymph # (Auto) 0.7 L [place] # (Auto) 0.6 Eos # (Auto) 0.0 Baso # (Auto) 0.0 Abs Immat Gran (auto) 0.02 Absolute Neuts (auto) 6.1 Absolute Nucleated RBC 0.000 Nucleated RBC % (auto) 0.0 Smear Tech's Comments VERIFIED Anion Gap 9 L Estim Creat Clear Calc 105.5 Estimated GFR > 60 POC Glucose 241 H 244 H Random Glucose 227 H Calcium 8.0 L Total Bilirubin 1.3 H Direct Bilirubin 0.7 H AST 42 H ALT 33 Alkaline Phosphatase 79 Total Protein 4.7 L Albumin 2.3 L Blood Type Antibody Screen 06/21/24 05:50 MCV MCH MCHC RDW Plt Count MPV Immature Gran % (Auto) Neut % (Auto) Lymph % (Auto) [place] % (Auto) Eos % (Auto) Baso % (Auto) Lymph # (Auto) [place] # (Auto) Eos # (Auto) Baso # (Auto) Abs Immat Gran (auto) Absolute Neuts (auto) Absolute Nucleated RBC Nucleated RBC % (auto) Smear Tech's Comments Anion Gap Estim Creat Clear Calc Estimated GFR POC Glucose 211 H Random Glucose Calcium Total Bilirubin Direct Bilirubin AST ALT Alkaline Phosphatase Total Protein Albumin Blood Type Antibody Screen Procedures Date of Service Date of Service: 06/21/24 Progress Note: A&P Assessment and plan (1) Adenocarcinoma of lower esophagus: Status: Acute Assessment and Plan: Status post open gastrostomy tube placement Looks well Labs okay Abdomen is soft and benign Okay to start tube feeds tomorrow at low rate Pain management Encouraged ambulation Time Spent With Patient Time: Total time managing care of this patient today ____ minutes. Quality Stroke Does the patient have a stroke diagnosis?: No VTE Prior VTE?: No VTE Risk Level:: Medical - moderate - high VTE Device Contraindication: N/A - Device Ordered VTE Drug Contraindication: N/A - Med Ordered
[2024-06-21] MEDS: Morphine Sulfate 4 MG/ML CARTRIDGE IVPUSH (08:55)
[2024-06-21] MEDS: Lactated Ringers 1,000 ML 80 ML IVCONT ×2 (08:58→20:55)
[2024-06-21] MEDS: levETIRAcetam 250 MG in 0.9 % Sodium Chloride 100 ML 410 MG IV ×2 (09:21→20:55)
--- NOTE | 2024-06-21 10:04 | HO.POSTANES ---
Post Anesthesia Evaluation Post Anesthesia Evaluation Date of Service: 06/21/24 Vital Signs: Vital Signs Temp Pulse Resp BP Pulse Ox O2 Del Method 06/21/24 07:15 98.4 F 72 14 101/57 L 96 Room Air 06/21/24 03:32 98.7 F 76 18 116/83 95 Room Air 06/21/24 00:00 97.9 F 84 18 114/69 94 Room Air Anesthesia: General Endotracheal-GETA Mental Status: Awake Pain Control: Satisfactory Nausea/Vomiting: None Hydration: Adequate Anesthesia-Related Issues: No Anes. Related Issues
--- NOTE | 2024-06-21 10:35 | P.PNGI_ITS ---
Subjective Subjective Date of Service: 06/21/24 Interval History: some pain from incisions Critical Care Time (minutes): 0 Physical Exam 2 Vital Signs: Vital Signs: Last Vital Signs Temp 98.4 F 06/21/24 07:15 Pulse 72 06/21/24 07:15 Resp 14 06/21/24 07:15 BP 101/57 L 06/21/24 07:15 Pulse Ox 96 06/21/24 07:15 O2 Del Method Room Air 06/21/24 07:15 O2 Flow Rate 2 06/20/24 15:30 BMI result Body Mass Index 24.7 GI: Other: soft abdomen Objective Data Labs 06/21/24 05:24 06/21/24 05:24 Procedures Date of Service Date of Service: 06/21/24 Progress Note: A&P Assessment and plan (1) Swallowing problem: Status: Acute Assessment and Plan: stable post open gtube continue present management Time Spent With Patient Time: Total time managing care of this patient today ____ minutes. Quality Stroke Does the patient have a stroke diagnosis?: No VTE Prior VTE?: No VTE Risk Level:: Medical - moderate - high VTE Device Contraindication: N/A - Device Ordered VTE Drug Contraindication: N/A - Med Ordered
[2024-06-21 11:25] VITALS: BP 110/61; PULSE 74; RESP 16; TEMP 36.4; O2SAT 95
[2024-06-21 11:42] LABS: Glucose, Whole Blood 175 mg/dL (60-115)
--- NOTE | 2024-06-21 13:04 | P.CDIM_ITS ---
PROVIDER RESPONSE TEXT: To clarify, the appropriate diagnosis supported by the clinical indicators: Pancytopenia QUERY TEXT: PHYSICIAN'S DOCUMENTATION REQUEST Date of Query: 06/20/2024 08:25 AM EST Patient Name: Tj Granda Admit Date: 06/16/2024 Dear Holly Posadas MD, A review of the medical record indicates additional documentation may be needed. Please review below and update the documentation accordingly. Clinical Indicators: LABS: WBC 3.4 PLT 45 L RBC 4.01 Adenocarcinoma of lower esophagus, actively receiving Chemotherapy. Based on the above, is there a diagnosis that correlates with these labs: Pancytopenia due to chemotherapy possible, probable, suspected etc. Pancytopenia due to other drug Pancytopenia Other (explain) Clinically unable to determine (explain) Thank you, Deneen Manuel, CCS, CDIS Use of terms such as suspected, likely, concern for, or probable (associated with a specific diagnosi s that is being evaluated, monitored, or treated as if it exists) are acceptable and can be coded in the inpatient se tting, when documented at the time of discharge. Please use your independent medical judgment in providing your response. THIS QUERY IS PART OF THE PERMANENT MEDICAL RECORD
--- NOTE | 2024-06-21 13:15 | MHC.CLN ---
F/U NPO FOR PEG PLACEMENT NUTRITION DX NON SEVERE MALNUTRITION IN THE CONTEXT OF CHRONIC ILLNESS. PATIENT WITH SIGNIFICANT WEIGHT LOSS AND RECENT VERY POOR PO INTAKE. SEE CLINICAL NUTRITION ASSESSMENT DATED 06/20/24 WHILE AT [facility]; RECOMMEND GLUCERNA 1.0 AT MAX GOAL RATE 80 ML PER HOUR WITH FREE WATER FLUSHES 240 ML Q 8 HOURS TO PROVIDE 1920 KCALS (26.8 KCALS/KG); 80 G PROTEIN (1.1 G/KG); 2333 ML FREE WATER FROM FORMULA AND FLUSHES (32.6 ML/KG) START TF GLUCERNA 1.0 AT 20 ML PER HOUR AND INCREASE BY 10 ML EVERY 4 HOURS UNTIL MAX GOAL RATE IS ACHIEVED MONITOR TUBE FEED TOLERANCE AND LYTES DISCUSSED CASE WITH CM; PT TO D/C THURSDAY WITH [facility] CAN OBTAIN GLUCERNA 1.2 TUBE FEEDING FOR PT UPON D/C; RECOMMEND GLUCERNA 1.2 AT MAX GOAL RATE 65ML/HR WITH 240ML FREE WATER FLUSHES Q 6 HRS TO PROVIDE 1872KCALS (26KCALS/KG), 94G PROTEIN (1.3G/KG), 2216ML TOTAL WATER FROM FORMULA AND FLUSHES (31ML/KG) CAN ADJUST TF NEEDED PER [facility] RD DISCRETION WEIGH WEEKLY CONTINUE TO MONITOR TF TOLERANCE AND LYTES
--- NOTE | 2024-06-21 14:39 | P.PNIM_ITS ---
Subjective Subjective Date of Service: 06/21/24 Interval History: seen and evaluated G-tube placed, wait 24 hours before restarting pain under fair control no other events Review of Systems Review of Systems: Yes all other systems are reviewed and are negative Physical Exam 2 Vital Signs: Vital Signs: Last Vital Signs Temp 97.6 F 06/21/24 11:25 Pulse 74 06/21/24 11:25 Resp 16 06/21/24 11:25 BP 110/61 06/21/24 11:25 Pulse Ox 95 06/21/24 11:25 O2 Del Method Room Air 06/21/24 11:25 O2 Flow Rate 2 06/20/24 15:30 BMI result Body Mass Index 24.7 Const: Other: Constitutional : Awake, interactive, not in distress Neck : Normal inspection, Supple Cardiovascular : RRR, no JVP, no lower extremity edema Respiratory : good bilateral air entry, no crackles, wheezes or rhonchi Gastrointestinal: soft, lax, Normal bowel sounds, Non tender, G-tube in place, no surrounding erythema or tenderness Skin : Warm, Dry Neurological : Alert & oriented x3, No focal deficit Objective Data Active Medications Acetaminophen (Acetaminophen 325 Mg Tablet) 650 mg PO Q6H PRN PRN Reason: Pain, Mild 1-3,fever,headache Last Admin: 06/19/24 20:26 Dose: 650 mg Documented By: RICKY Levetiracetam 250 mg/ Sodium (Chloride) 102.5 mls @ 410 mls/hr IV BID [facility] Last Infusion: 06/21/24 10:27 Dose: Infused Documented By: BRYAN Lactated Ringer's (Lr) 1,000 mls @ 80 mls/hr IVCONT .[id number] [facility] Last Admin: 06/21/24 08:58 Dose: 80 mls/hr Documented By: BRYAN Morphine Sulfate (Morphine Sulfate 4 Mg/Ml Cartridge) 4 mg IVPUSH Q3H PRN; Protocol PRN Reason: Pain, Severe (Pain Scale 7-10) Last Admin: 06/21/24 08:55 Dose: 4 mg Documented By: BRYAN Naloxone HCl (Naloxone Hcl 0.4 Mg/Ml Vial) 0.04 mg IVPUSH Q5M PRN PRN Reason: Excessive sedation or RR < 8 Ondansetron HCl (Ondansetron Hcl 4 Mg/2 Ml Vial) 4 mg IVPUSH Q8H PRN PRN Reason: Nausea and Vomiting Sodium Chloride (0.9 % Sodium Chloride Flush 3 Ml Syringe) 3 ml IVFLUSH QSHIFT [facility] Last Admin: 06/21/24 13:41 Dose: Not Given Documented By: BRYAN Non-Admin Reason: IV Running Labs 06/21/24 05:24 06/21/24 05:24 Labs: Laboratory Results - last 24 hr 06/20/24 06/20/24 06/21/24 18:09 23:47 05:24 MCV 89.0 MCH 32.5 MCHC 36.5 H RDW 13.9 Plt Count 60 L D MPV 10.6 Immature Gran % (Auto) 0.3 Neut % (Auto) 82.0 H Lymph % (Auto) 9.4 L [place] % (Auto) 7.9 Eos % (Auto) 0.1 Baso % (Auto) 0.3 Lymph # (Auto) 0.7 L [place] # (Auto) 0.6 Eos # (Auto) 0.0 Baso # (Auto) 0.0 Abs Immat Gran (auto) 0.02 Absolute Neuts (auto) 6.1 Absolute Nucleated RBC 0.000 Nucleated RBC % (auto) 0.0 Smear Tech's Comments VERIFIED Anion Gap 9 L Estim Creat Clear Calc 105.5 Estimated GFR > 60 POC Glucose 241 H 244 H Random Glucose 227 H Calcium 8.0 L Total Bilirubin 1.3 H Direct Bilirubin 0.7 H AST 42 H ALT 33 Alkaline Phosphatase 79 Total Protein 4.7 L Albumin 2.3 L 06/21/24 06/21/24 05:50 11:36 MCV MCH MCHC RDW Plt Count MPV Immature Gran % (Auto) Neut % (Auto) Lymph % (Auto) [place] % (Auto) Eos % (Auto) Baso % (Auto) Lymph # (Auto) [place] # (Auto) Eos # (Auto) Baso # (Auto) Abs Immat Gran (auto) Absolute Neuts (auto) Absolute Nucleated RBC Nucleated RBC % (auto) Smear Tech's Comments Anion Gap Estim Creat Clear Calc Estimated GFR POC Glucose 211 H 175 H Random Glucose Calcium Total Bilirubin Direct Bilirubin AST ALT Alkaline Phosphatase Total Protein Albumin Assessment and Plan (1) Swallowing problem: Status: Acute (2) Adult failure to thrive: Status: Acute (3) Esophageal mass: Status: Acute Plan 63-year-old male with multiple medical problems including 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 He presents with several weeks of dysphagia/odynophagia even to liquids. He has been unable to maintain his nutrition and hydration necessitating insertion of a PEG tube. # Odynophagia/dysphagia 2/2 esophageal cancer Intolerant to even liquids hence will require surgical PEG tube insertion as endoscopic approache did not work GI did EGD showing large mass, pending pathology sSurgery placed PEG tube, POD1 to start tube feed tomorrow Pickle Maker wrote rec. IV fluids, IV PPI # Thrombocytopenia PLT 60k after total 2 units transfusion # Acute hypokalemia resolved w replacement , follow BMP #Dehydration continue IV fluids # Moderate protein malnutrition G-tube placement today, to start tube feed tomorrow can add Ensure and high protein diet # History of diabetes point of care is q.6 hours; hold off sliding scale at this time # History of seizures IV keppra # Esophageal adenocarcinoma Outpatient follow-up with his oncologist # Cirrhosis s/p TIPS Full Code DVT pptx mechanical due to planned procedure and low PLT reason for on going hospitalization: unable to tolerate PO and requires feeding tube Quality Stroke Does the patient have a stroke diagnosis?: No VTE Prior VTE?: No VTE Risk Level:: Medical - moderate - high VTE Device Contraindication: N/A - Device Ordered VTE Drug Contraindication: N/A - Med Ordered
[2024-06-21 15:15] VITALS: BP 107/56; PULSE 74; RESP 14; TEMP 36.6; O2SAT 96
--- NOTE | 2024-06-21 15:31 | PM.EVENT ---
Event Note Date of Service: 06/21/24 Event Note: Seen on afternoon rounds earlier Pain control seems better Says he is okay Abdomen is soft Stable vital signs Looks comfortable Pain management Okay to start on a low rate tube feeds tomorrow Time Spent With Patient Time: Total time managing care of this patient today ____ minutes.
[2024-06-21 18:40] LABS: Glucose, Whole Blood 148 mg/dL (60-115)
[2024-06-21 19:56] VITALS: BP 108/59; PULSE 71; RESP 16; TEMP 36.4; O2SAT 95
[2024-06-22] VITALS: BP 115/62; PULSE 80; RESP 16; TEMP 36.3; O2SAT 95
[2024-06-22 00:18] LABS: Glucose, Whole Blood 153 mg/dL (60-115)
[2024-06-22] MEDS: Morphine Sulfate 4 MG/ML CARTRIDGE IVPUSH ×2 (03:32→15:44)
[2024-06-22] MEDS: Acetaminophen 1,000 MG/100 ML PIGGYBACK 400 MG IV ×2 (03:35→09:41)
[2024-06-22 04:00] VITALS: BP 119/70; PULSE 81; RESP 16; TEMP 36.3; O2SAT 92
[2024-06-22 05:22] LABS: Glucose, Whole Blood 145 mg/dL (60-115)
[2024-06-22 06:28] LABS: MANUAL DIFF FLAG NO
[2024-06-22 06:35] LABS: Basophils Percent Auto 0.3 % (0-2); Eosinophils Absolute Auto 0.1 X10*3/uL (0.0-0.4); Eosinophils Percent Auto 1.7 % (0-4); Hematocrit 36.8 % (42.0-52.0); Imm Gran Abs Auto 0.02 X10*3/uL (0.00-0.03); Imm Gran Pct Auto 0.3 % (0.0-0.4); Lymphocytes Absolute Auto 0.9 X10*3/uL (1.2-4.9); Lymphocytes Percent Auto 12.7 % (20-40); Mean Corpuscular HGB Conc 35.3 g/dl (31.0-36.0); Mean Corpuscular Hemoglobin 32.4 pg (27.0-33.0); Mean Corpuscular Volume 91.8 fL (80.0-98.0); Mean Platelet Volume 10.7 fL (9.4-12.4); Monocytes Absolute Auto 0.6 X10*3/uL (0.1-1.2); Monocytes Percent Auto 8.5 % (2-11); Neutrophils Absolute Auto 5.3 x10*3/uL (2.0-8.3); Neutrophils Percent Auto 76.5 % (45-73); Red Blood Count 4.01 X10*6/uL (4.60-5.80); Red Cell Distribution Width 14.2 % (11.0-16.0); White Blood Count 6.9 X10*3/uL (4.8-10.8)
[2024-06-22 06:44] LABS: Platelet Count 53 X10*3/uL (160-400)
[2024-06-22 06:50] LABS: Anion Gap 8 (12-20); Blood Urea Nitrogen 16 mg/dL (9-16); Calcium 7.7 mg/dL (8.4-10.2); Carbon Dioxide 26 mmol/L (22-29); Chloride 112 mmol/L (96-108); Creatinine Clr Calc Pharmacy 105.5; Estimated Glomerular Filt Rate > 60; Glucose Random 159 mg/dL (60-115); Potassium 3.7 mmol/L (3.3-5.1); Sodium 142 mmol/L (135-145)
[2024-06-22 07:23] VITALS: BP 118/63; PULSE 83; RESP 16; TEMP 36.4; O2SAT 93
[2024-06-22] MEDS: levETIRAcetam 250 MG in 0.9 % Sodium Chloride 100 ML 410 MG IV ×2 (09:12→21:17)
--- NOTE | 2024-06-22 10:06 | MHC.CLN ---
F/U TUBE FEEDING ORDERED 06/22. NUTRITION DX NON SEVERE MALNUTRITION IN THE CONTEXT OF CHRONIC ILLNESS. PATIENT WITH SIGNIFICANT WEIGHT LOSS AND RECENT VERY POOR PO INTAKE. PATIENT IS AT RISK OF REFEEDING DUE TO PROLONGED POOR PO. WHILE AT [facility]; RECOMMEND GLUCERNA 1.0 AT MAX GOAL RATE 80 ML PER HOUR WITH FREE WATER FLUSHES 240 ML Q 8 HOURS TO PROVIDE 1920 KCALS (26.8 KCALS/KG); 80 G PROTEIN (1.1 G/KG); 2333 ML FREE WATER FROM FORMULA AND FLUSHES (32.6 ML/KG) START TF GLUCERNA 1.0 AT 10 ML PER HOUR AND INCREASE BY 10 ML EVERY 4 HOURS UNTIL MAX GOAL RATE IS ACHIEVED MONITOR TUBE FEED TOLERANCE AND LYTES.
--- NOTE | 2024-06-22 10:58 | P.PNIM_ITS ---
Subjective Subjective Date of Service: 06/22/24 Interval History: sore at gtube site Physical Exam 2 Vital Signs: Vital Signs: Last Vital Signs Temp 97.6 F 06/22/24 07:23 Pulse 83 06/22/24 07:23 Resp 16 06/22/24 07:23 BP 118/63 06/22/24 07:23 Pulse Ox 93 06/22/24 07:23 O2 Del Method Room Air 06/22/24 07:23 O2 Flow Rate 2 06/20/24 15:30 BMI result Body Mass Index 24.7 Const: Other: Constitutional : Awake, interactive, not in distress Neck : Normal inspection, Supple Cardiovascular : RRR, no JVP, no lower extremity edema Respiratory : good bilateral air entry, no crackles, wheezes or rhonchi Gastrointestinal: soft, lax, Normal bowel sounds, Non tender, G-tube in place, no surrounding erythema or tenderness Skin : Warm, Dry Neurological : Alert & oriented x3, No focal deficit Objective Data Active Medications Acetaminophen (Acetaminophen 325 Mg Tablet) 650 mg PO Q6H PRN PRN Reason: Pain, Mild 1-3,fever,headache Last Admin: 06/19/24 20:26 Dose: 650 mg Documented By: RICKY Levetiracetam 250 mg/ Sodium (Chloride) 102.5 mls @ 410 mls/hr IV BID [facility] Last Infusion: 06/22/24 09:59 Dose: Infused Documented By: DIEGO Lactated Ringer's (Lr) 1,000 mls @ 80 mls/hr IVCONT .[id number] [facility] Last Admin: 06/21/24 20:55 Dose: 80 mls/hr Documented By: JERI Morphine Sulfate (Morphine Sulfate 4 Mg/Ml Cartridge) 4 mg IVPUSH Q3H PRN; Protocol PRN Reason: Pain, Severe (Pain Scale 7-10) Last Admin: 06/22/24 03:32 Dose: 4 mg Documented By: JERI Naloxone HCl (Naloxone Hcl 0.4 Mg/Ml Vial) 0.04 mg IVPUSH Q5M PRN PRN Reason: Excessive sedation or RR < 8 Ondansetron HCl (Ondansetron Hcl 4 Mg/2 Ml Vial) 4 mg IVPUSH Q8H PRN PRN Reason: Nausea and Vomiting Sodium Chloride (0.9 % Sodium Chloride Flush 3 Ml Syringe) 3 ml IVFLUSH QSHIFT [facility] Last Admin: 06/22/24 09:16 Dose: Not Given Documented By: DIEGO Non-Admin Reason: IV Running Labs 06/22/24 05:32 06/22/24 05:32 Labs: Laboratory Results - last 24 hr 06/21/24 06/21/24 06/22/24 11:36 18:36 00:14 MCV MCH MCHC RDW Plt Count MPV Immature Gran % (Auto) Neut % (Auto) Lymph % (Auto) [place] % (Auto) Eos % (Auto) Baso % (Auto) Lymph # (Auto) [place] # (Auto) Eos # (Auto) Baso # (Auto) Abs Immat Gran (auto) Absolute Neuts (auto) Absolute Nucleated RBC Nucleated RBC % (auto) Anion Gap Estim Creat Clear Calc Estimated GFR POC Glucose 175 H 148 H 153 H Random Glucose Calcium 06/22/24 06/22/24 05:17 05:32 MCV 91.8 MCH 32.4 MCHC 35.3 RDW 14.2 Plt Count 53 L MPV 10.7 Immature Gran % (Auto) 0.3 Neut % (Auto) 76.5 H Lymph % (Auto) 12.7 L [place] % (Auto) 8.5 Eos % (Auto) 1.7 Baso % (Auto) 0.3 Lymph # (Auto) 0.9 L [place] # (Auto) 0.6 Eos # (Auto) 0.1 Baso # (Auto) 0.0 Abs Immat Gran (auto) 0.02 Absolute Neuts (auto) 5.3 Absolute Nucleated RBC 0.000 Nucleated RBC % (auto) 0.0 Anion Gap 8 L Estim Creat Clear Calc 105.5 Estimated GFR > 60 POC Glucose 145 H Random Glucose 159 H Calcium 7.7 L Assessment and Plan (1) Swallowing problem: Status: Acute (2) Adult failure to thrive: Status: Acute (3) Esophageal mass: Status: Acute Plan 63M PMH adenocarcinoma of the lower esophagus for which he is actively receiving chemotherapy, diabetes, cirrhosis status post tips, seizure disorder. Presented with dysphagia unable to tolerate p.o. Odynophagia/dysphagia 2/2 esophageal cancer complicated by moderate protein calorie malnutrition GI did EGD showing large mass, pending pathology s/p Surgery placed PEG tube 06/20/24, POD2 Starting tube feeds Cirrhosis complicated by chronic thrombocytopenia Appears stable Acute hypokalemia Replaced, monitor Diabetes Monitor point of care Seizure disorder Keppra Full Code DVT pptx mechanical due to low PLT reason for continued hospitalization: Monitoring tolerance of tube feeds Quality Stroke Does the patient have a stroke diagnosis?: No VTE Prior VTE?: No VTE Risk Level:: Medical - moderate - high VTE Device Contraindication: N/A - Device Ordered VTE Drug Contraindication: N/A - Med Ordered
[2024-06-22] MEDS: Lactated Ringers 1,000 ML 80 ML IVCONT ×2 (11:26→23:43)
[2024-06-22 12:00] VITALS: BP 113/66; PULSE 76; RESP 18; TEMP 36.6; O2SAT 93
[2024-06-22 15:14] VITALS: BP 125/71; PULSE 83; RESP 16; TEMP 36.4; O2SAT 95
[2024-06-22 15:55] LABS: Glucose, Whole Blood 139 mg/dL (60-115)
[2024-06-22 17:52] LABS: Glucose, Whole Blood 153 mg/dL (60-115)
[2024-06-22 19:06] VITALS: BP 118/63; PULSE 86; RESP 16; TEMP 36.3; O2SAT 95
[2024-06-22] MEDS: 0.9 % Sodium Chloride Flush 3 ML SYRINGE IVFLUSH (21:23)
[2024-06-23 00:22] LABS: Glucose, Whole Blood 154 mg/dL (60-115)
[2024-06-23] MEDS: Morphine Sulfate 4 MG/ML CARTRIDGE IVPUSH ×3 (03:45→16:11)
[2024-06-23 03:50] VITALS: BP 134/76; PULSE 94; RESP 18; TEMP 37; O2SAT 94
[2024-06-23 05:59] LABS: Glucose, Whole Blood 192 mg/dL (60-115)
[2024-06-23 06:33] LABS: Alanine Aminotransferase 22 U/L (0-40); Albumin Level 2.4 g/dL (3.5-5.0); Alkaline Phosphatase 109 U/L (39-117); Anion Gap 9 (12-20); Aspartate Amino Transferase 34 U/L (5-37); Bilirubin Direct 0.6 mg/dL (0.0-0.5); Bilirubin Total 1.1 mg/dL (0.0-1.0); Blood Urea Nitrogen 15 mg/dL (9-16); Calcium 8.1 mg/dL (8.4-10.2); Carbon Dioxide 27 mmol/L (22-29); Chloride 109 mmol/L (96-108); Creatinine Clr Calc Pharmacy 99.5; Estimated Glomerular Filt Rate > 60; Glucose Random 198 mg/dL (60-115); Magnesium 1.5 mg/dL (1.6-2.6); Phosphorus 2.6 mg/dL (2.7-4.5); Potassium 4.5 mmol/L (3.3-5.1); Sodium 140 mmol/L (135-145); Total Protein 5.1 g/dL (6.5-8.0)
[2024-06-23 07:17] LABS: Glucose, Whole Blood 183 mg/dL (60-115)
[2024-06-23 07:18] VITALS: BP 116/66; PULSE 85; RESP 16; TEMP 36.5; O2SAT 93
--- NOTE | 2024-06-23 08:06 | P.PNGS_ITS ---
Subjective Subjective Date of Service: 06/23/24 Interval history: Feels well Tube feeds started No events reported Physical Exam 2 Vital Signs: Vital Signs: Last Vital Signs Temp 97.7 F 06/23/24 07:18 Pulse 85 06/23/24 07:18 Resp 16 06/23/24 07:18 BP 116/66 06/23/24 07:18 Pulse Ox 93 06/23/24 07:18 O2 Del Method Room Air 06/23/24 07:18 O2 Flow Rate 2 06/20/24 15:30 BMI result Body Mass Index 24.7 Const: General: comfortable and no acute distress Resp: Effort & Inspection: normal respiratory effort GI: Other: Gastrostomy tube in place, incision clean Palpation (GI): Soft to palpation Objective Data Active Medications Acetaminophen (Acetaminophen 325 Mg Tablet) 650 mg PO Q6H PRN PRN Reason: Pain, Mild 1-3,fever,headache Last Admin: 06/19/24 20:26 Dose: 650 mg Documented By: RICKY Levetiracetam 250 mg/ Sodium (Chloride) 102.5 mls @ 410 mls/hr IV BID [facility] Last Infusion: 06/22/24 21:39 Dose: Infused Documented By: ABHI Lactated Ringer's (Lr) 1,000 mls @ 80 mls/hr IVCONT .[id number] [facility] Last Admin: 06/22/24 23:43 Dose: 80 mls/hr Documented By: ABHI Morphine Sulfate (Morphine Sulfate 4 Mg/Ml Cartridge) 4 mg IVPUSH Q3H PRN; Protocol PRN Reason: Pain, Severe (Pain Scale 7-10) Last Admin: 06/23/24 03:45 Dose: 4 mg Documented By: ABHI Naloxone HCl (Naloxone Hcl 0.4 Mg/Ml Vial) 0.04 mg IVPUSH Q5M PRN PRN Reason: Excessive sedation or RR < 8 Ondansetron HCl (Ondansetron Hcl 4 Mg/2 Ml Vial) 4 mg IVPUSH Q8H PRN PRN Reason: Nausea and Vomiting Sodium Chloride (0.9 % Sodium Chloride Flush 3 Ml Syringe) 3 ml IVFLUSH QSHIFT [facility] Last Admin: 06/22/24 21:23 Dose: 3 ml Documented By: ABHI Labs 06/22/24 05:32 06/23/24 05:44 Labs: Laboratory Results - last 24 hr 06/22/24 06/22/24 06/23/24 12:02 17:48 00:13 Anion Gap Estim Creat Clear Calc Estimated GFR POC Glucose 139 H 153 H 154 H Random Glucose Calcium Phosphorus Magnesium Total Bilirubin Direct Bilirubin AST ALT Alkaline Phosphatase Total Protein Albumin 06/23/24 06/23/24 06/23/24 05:44 05:52 07:13 Anion Gap 9 L Estim Creat Clear Calc 99.5 Estimated GFR > 60 POC Glucose 192 H 183 H Random Glucose 198 H Calcium 8.1 L Phosphorus 2.6 L Magnesium 1.5 L Total Bilirubin 1.1 H Direct Bilirubin 0.6 H AST 34 ALT 22 Alkaline Phosphatase 109 Total Protein 5.1 L Albumin 2.4 L Procedures Date of Service Date of Service: 06/23/24 Progress Note: A&P Assessment and plan (1) Adenocarcinoma of lower esophagus: Status: Acute Assessment and Plan: Status post gastrostomy tube placement, open Tolerating tube feeds Advance rate to meet caloric requirements Abdomen is soft and benign Follow up in the office in about 2 weeks for removal of [place] Time Spent With Patient Time: Total time managing care of this patient today ____ minutes. Quality Stroke Does the patient have a stroke diagnosis?: No VTE Prior VTE?: No VTE Risk Level:: Medical - moderate - high VTE Device Contraindication: N/A - Device Ordered VTE Drug Contraindication: N/A - Med Ordered
--- NOTE | 2024-06-23 08:27 | HO.PM.IMPN ---
Subjective Subjective Date of Service: 06/23/24 Interval History: Tolerating feeds so far Physical Exam Vital Signs: Vital Signs: Last Vital Signs Temp 97.7 F 06/23/24 07:18 Pulse 85 06/23/24 07:18 Resp 16 06/23/24 07:18 BP 116/66 06/23/24 07:18 Pulse Ox 93 06/23/24 07:18 O2 Del Method Room Air 06/23/24 07:18 O2 Flow Rate 2 06/20/24 15:30 BMI result Body Mass Index 24.7 Const: General: comfortable and no acute distress Resp: Effort & Inspection: normal respiratory effort GI: Other: Gastrostomy tube in place, incision clean Palpation (GI): Soft to palpation Objective Data Active Medications Acetaminophen (Acetaminophen 325 Mg Tablet) 650 mg PO Q6H PRN PRN Reason: Pain, Mild 1-3,fever,headache Last Admin: 06/19/24 20:26 Dose: 650 mg Documented By: RICKY Lactated Ringer's (Lr) 1,000 mls @ 80 mls/hr IVCONT .[id number] [facility] Last Admin: 06/22/24 23:43 Dose: 80 mls/hr Documented By: ABHI Morphine Sulfate (Morphine Sulfate 4 Mg/Ml Cartridge) 4 mg IVPUSH Q3H PRN; Protocol PRN Reason: Pain, Severe (Pain Scale 7-10) Last Admin: 06/23/24 03:45 Dose: 4 mg Documented By: ABHI Naloxone HCl (Naloxone Hcl 0.4 Mg/Ml Vial) 0.04 mg IVPUSH Q5M PRN PRN Reason: Excessive sedation or RR < 8 Ondansetron HCl (Ondansetron Hcl 4 Mg/2 Ml Vial) 4 mg IVPUSH Q8H PRN PRN Reason: Nausea and Vomiting Sodium Chloride (0.9 % Sodium Chloride Flush 3 Ml Syringe) 3 ml IVFLUSH QSHIFT [facility] Last Admin: 06/22/24 21:23 Dose: 3 ml Documented By: ABHI Labs 06/22/24 05:32 06/23/24 05:44 Labs: Laboratory Results - last 24 hr 06/22/24 06/22/24 06/23/24 12:02 17:48 00:13 Anion Gap Estim Creat Clear Calc Estimated GFR POC Glucose 139 H 153 H 154 H Random Glucose Calcium Phosphorus Magnesium Total Bilirubin Direct Bilirubin AST ALT Alkaline Phosphatase Total Protein Albumin 06/23/24 06/23/24 06/23/24 05:44 05:52 07:13 Anion Gap 9 L Estim Creat Clear Calc 99.5 Estimated GFR > 60 POC Glucose 192 H 183 H Random Glucose 198 H Calcium 8.1 L Phosphorus 2.6 L Magnesium 1.5 L Total Bilirubin 1.1 H Direct Bilirubin 0.6 H AST 34 ALT 22 Alkaline Phosphatase 109 Total Protein 5.1 L Albumin 2.4 L Assessment and Plan (1) Swallowing problem: Status: Acute (2) Adult failure to thrive: Status: Acute (3) Esophageal mass: Status: Acute Plan 63M PMH adenocarcinoma of the lower esophagus for which he is actively receiving chemotherapy, diabetes, cirrhosis status post tips, seizure disorder. Presented with dysphagia unable to tolerate p.o. Odynophagia/dysphagia 2/2 esophageal cancer complicated by moderate protein calorie malnutrition GI did EGD showing large mass, pending pathology s/p Surgery placed PEG tube 06/20/24, POD3 Started tube feeds, so far tolerating, continued to increase and monitor Cirrhosis complicated by chronic thrombocytopenia Appears stable Acute hypokalemia and acute hypophosphatemia Replace, monitor Diabetes Monitor point of care Seizure disorder Keppra Full Code DVT pptx mechanical due to low PLT reason for continued hospitalization: Monitoring tolerance of tube feeds Quality Stroke Does the patient have a stroke diagnosis?: No VTE Prior VTE?: No VTE Risk Level:: Medical - moderate - high VTE Device Contraindication: N/A - Device Ordered VTE Drug Contraindication: N/A - Med Ordered
[2024-06-23] MEDS: Magnesium Oxide 400 MG TABLET G-TUBE ×2 (08:41→16:11)
[2024-06-23] MEDS: levETIRAcetam Oral Soln 500 MG/5 ML 250 MG G-TUBE ×2 (08:41→22:06)
[2024-06-23] MEDS: Sodium,Potassium Phosphates POWD.PACK 1 PACKET G-TUBE ×4 (08:41→22:06)
[2024-06-23] MEDS: 0.9 % Sodium Chloride Flush 3 ML SYRINGE IVFLUSH (08:51)
--- NOTE | 2024-06-23 10:57 | MHC.CM.PN ---
DP: PT HAS BEEN MEDICALLY CLEARED FOR DC HOME WITH RESUMPTION OF [facility] FOR USP/PHYSICAL THERAPY. [facility] UPDATED ON TODAY'S DC. RN NOTIFIED. [facility]SE UPDATED AND REQUESTS PT COME HOME VS. STR. BLS BOOKED FOR 12: 30 PM VIA [facility] [employer] [facility]. [facility] AUTH OBTAINED FOR TRANSPORT: BOOKING ID#: [id number]
[2024-06-23 11:56] LABS: Glucose, Whole Blood 217 mg/dL (60-115)
[2024-06-23] MEDS: Lactated Ringers 1,000 ML 80 ML IVCONT (12:19)
--- NOTE | 2024-06-23 12:23 | P.PNGI_ITS ---
Subjective Subjective Date of Service: 06/23/24 Interval History: tolerating tube feeds, some bloating Critical Care Time (minutes): 0 Physical Exam 2 Vital Signs: Vital Signs: Last Vital Signs Temp 97.7 F 06/23/24 07:18 Pulse 85 06/23/24 07:18 Resp 16 06/23/24 07:18 BP 116/66 06/23/24 07:18 Pulse Ox 93 06/23/24 07:18 O2 Del Method Room Air 06/23/24 07:18 O2 Flow Rate 2 06/20/24 15:30 BMI result Body Mass Index 24.7 Const: General: cooperative GI: Other: g tube intact, some incisional discomfort abdomen is otherwise benign Objective Data Labs 06/22/24 05:32 06/23/24 05:44 Labs: Laboratory Results - last 24 hr 06/22/24 06/22/24 06/23/24 12:02 17:48 00:13 Sodium Potassium Chloride Carbon Dioxide Anion Gap BUN Creatinine Estim Creat Clear Calc Estimated GFR POC Glucose 139 H 153 H 154 H Random Glucose Calcium Phosphorus Magnesium Total Bilirubin Direct Bilirubin AST ALT Alkaline Phosphatase Total Protein Albumin 06/23/24 06/23/24 06/23/24 05:44 05:52 07:13 Sodium 140 Potassium 4.5 D Chloride 109 H Carbon Dioxide 27 Anion Gap 9 L BUN 15 Creatinine 0.71 Estim Creat Clear Calc 99.5 Estimated GFR > 60 POC Glucose 192 H 183 H Random Glucose 198 H Calcium 8.1 L Phosphorus 2.6 L Magnesium 1.5 L Total Bilirubin 1.1 H Direct Bilirubin 0.6 H AST 34 ALT 22 Alkaline Phosphatase 109 Total Protein 5.1 L Albumin 2.4 L 06/23/24 11:52 Sodium Potassium Chloride Carbon Dioxide Anion Gap BUN Creatinine Estim Creat Clear Calc Estimated GFR POC Glucose 217 H Random Glucose Calcium Phosphorus Magnesium Total Bilirubin Direct Bilirubin AST ALT Alkaline Phosphatase Total Protein Albumin Procedures Date of Service Date of Service: 06/23/24 Progress Note: A&P Assessment and plan (1) Esophageal mass: Status: Acute Assessment and Plan: reviewed pathology with pt and , copies to oncology. discussed tube feeds with pt and . continue present rx. Time Spent With Patient Time: Total time managing care of this patient today ____ minutes. Quality Stroke Does the patient have a stroke diagnosis?: No VTE Prior VTE?: No VTE Risk Level:: Medical - moderate - high VTE Device Contraindication: N/A - Device Ordered VTE Drug Contraindication: N/A - Med Ordered
--- NOTE | 2024-06-23 14:38 | MHC.CM.PN ---
[facility]ION IN TO DO TEACH WITH PT /, NOT PRESENT BUT CM SPOKE WITH HER ON PHONE AND IS WILLING TO LEARN ENTERAL FEEDS AND IS AWARE WILL DC LATE IN THE MORNING /3.. MD ORDERS IN /[facility] NOTIFIED OF PLAN TO DC IN AM.
[2024-06-23 16:00] VITALS: BP 123/72; PULSE 91; RESP 18; TEMP 36.5; O2SAT 93
[2024-06-23 19:11] VITALS: BP 126/74; PULSE 100; RESP 18; TEMP 36.5; O2SAT 94
[2024-06-24 00:02] LABS: Glucose, Whole Blood 292 mg/dL (60-115)
[2024-06-24] MEDS: Morphine Sulfate 4 MG/ML CARTRIDGE IVPUSH (02:50)
[2024-06-24 03:41] VITALS: BP 124/75; PULSE 104; RESP 18; TEMP 37.1; O2SAT 95
--- NOTE | 2024-06-24 05:11 | PC.NURSE ---
Patient tolerates bolus tube feeds well, no residual. Feeding done at 20:00 yesterday and midnight. Water flush at midnight. Next feeding will do at 0600. Some abdominal discomfort with mild bloating for which morphine was given with good effect.
[2024-06-24 05:41] LABS: Glucose, Whole Blood 252 mg/dL (60-115)
[2024-06-24 05:57] LABS: Hematocrit 38.8 % (42.0-52.0); Hemoglobin 13.6 g/dl (14.0-18.0); Mean Corpuscular HGB Conc 35.1 g/dl (31.0-36.0); Mean Corpuscular Hemoglobin 31.7 pg (27.0-33.0); Mean Corpuscular Volume 90.4 fL (80.0-98.0); Red Blood Count 4.29 X10*6/uL (4.60-5.80); Red Cell Distribution Width 14.5 % (11.0-16.0); White Blood Count 6.3 X10*3/uL (4.8-10.8)
[2024-06-24 05:58] LABS: Platelet Count 76 X10*3/uL (160-400)
[2024-06-24 06:12] LABS: Anion Gap 8 (12-20); Blood Urea Nitrogen 16 mg/dL (9-16); Calcium 8.2 mg/dL (8.4-10.2); Carbon Dioxide 27 mmol/L (22-29); Chloride 107 mmol/L (96-108); Creatinine Clr Calc Pharmacy 103.9; Estimated Glomerular Filt Rate > 60; Glucose Random 284 mg/dL (60-115); Magnesium 1.5 mg/dL (1.6-2.6); Phosphorus 2.4 mg/dL (2.7-4.5); Potassium 4.4 mmol/L (3.3-5.1); Sodium 138 mmol/L (135-145)
[2024-06-24 07:47] VITALS: BP 127/77; PULSE 96; RESP 18; TEMP 37.4; O2SAT 92
[2024-06-24] MEDS: Magnesium Oxide 400 MG TABLET G-TUBE (08:24)
[2024-06-24] MEDS: levETIRAcetam Oral Soln 500 MG/5 ML 250 MG G-TUBE (08:25)
[2024-06-24] MEDS: Sodium,Potassium Phosphates POWD.PACK 2 PACKET G-TUBE (08:25)
[2024-06-24] MEDS: 0.9 % Sodium Chloride Flush 3 ML SYRINGE IVFLUSH (08:38)
--- NOTE | 2024-06-24 08:53 | W.MHC.F2F ---
Service Date Service Date: 06/24/24 Encounter Date of encounter: 06/24/24 Reasons for Services Signs and symptoms assessed: dysphagia Reason for retirement: other (tube feeds) Homebound: Leaving the home is medically contraindicated at this time without the asist of a device and/or another person due th the listed conditions above and below. Reason homebound: weakness related to hospital stay Certification: Based on the above findings, I certify that this patient is confined to the home and needs intermittent retirement care, physical therapy and/or speech therapy, or continues to need occupational therapy. The patient is under my care, and I have initiated the establishment of the plan of care. The patient will be followed by a physician who will periodically review the plan of care. Time Spent With Patient Time: Total time managing care of this patient today ____ minutes.
--- NOTE | 2024-06-24 08:54 | PM.DS ---
DS: Providers Provider Date of Service: 06/24/24 Date of admission: 06/16/24 13:13 Date of discharge: 06/24/24 Primary care physician: CLAUDIO Rincon- Consults: 06/16/24 13:13 Consult to Gastroenterology Routine Consulting Provider: Benjamin Suggs Reason for consultation: known esophageal ca - presenting with dysphagia/odynophagia Has provider been notified: Yes 06/16/24 13:51 Consult to General Surgery Routine Consulting Provider: [facility] General Surgeons Reason for consultation: Dysphagia, esophageal adenocarcinoma, PEG vs. surgical gastrostomy tube Has provider been notified: Yes DS: Diagnosis Discharge Diagnosis (1) Esophageal mass: Status: Acute DS: Summary Hospital Course Hospital Course: from initial hpi: 62-year-old male with a past medical history of adenocarcinoma of the lower esophagus, type 2 diabetes, cirrhosis status post TIPS procedure, seizure disorder on Keppra who presents to the emergency room with progressive dysphagia and odynophagia. The patient is actively receiving chemotherapy for his known adenocarcinoma of the esophagus. He reports that over the last several weeks he has lost 10-20 lb as he has been unable to consume anything by mouth. Reports dysphagia to even liquids. He reports odynophagia to liquids as well. He states at times he has regurgitated his medications which are taken the day before. Due to ongoing difficulty with this, the patient was advised to come to the emergency room by his oncologist. In the ED the patient's blood work showed signs of dehydration with an elevated BUN and elevated bicarb indicative of contraction alkalosis. The patient has been given 1 L of IV fluids. He has been seen in consultation by his application design engineer, Dr. Suggs with plans for PEG tube insertion. For possibility of surgical feeding tube insertion remains large given his presenting dysphagia even to liquids. hospital course: Patient was admitted for odynophagia and dysphagia due to recurrence of esophageal cancer complicated by moderate protein calorie malnutrition. Patient underwent EGD which was biopsied and showed recurrent adenocarcinoma. He underwent PEG placement 06/20/2024, was started on feeds and is tolerating bolus feeds. We will continue bolus feeds at home. For cirrhosis complicated by chronic thrombocytopenia he remained stable. For acute hypokalemia and acute hypophosphatemia he received replacement. For diabetes was monitored with point of cares. For seizure disorder he was continued on Keppra. Patient will be discharged home. Time Attestation Discharge Coordination Time (in mins): 36 Quality: Safe Use of Opioids Does Pt have an Active Cancer Diagnosis on the Problem List?: Yes Opioid Measure Date for [facility] Report: 05/25/24 Opioid Measure Time for [facility] Report: 08:54 Quality: Stroke Does the patient have a stroke diagnosis?: No Physical Exam Vital Signs: Vital Signs: Last Vital Signs Temp 99.3 F 06/24/24 07:47 Pulse 96 06/24/24 07:47 Resp 18 06/24/24 07:47 BP 127/77 06/24/24 07:47 Pulse Ox 92 06/24/24 07:47 O2 Del Method Room Air 06/24/24 07:47 O2 Flow Rate 2 06/20/24 15:30 BMI result Body Mass Index 24.7 General: AO X 3, no acute distress Resp: CTA bilateral, no accessory muscles used CVS: S1,S2,RRR GI: soft, non tender, non distended Neuro: motor grossly intact, alert Psych: appropriate affect, appropriate insight DS: Data Data Completed and Pending Completed studies during hospitalization [Text1]: Pending at discharge 06/17/24 14:09 Surgical [PTH] Routine Labs on day of discharge: Laboratory Results - last 24 hr 06/23/24 06/23/24 06/24/24 11:52 23:54 05:36 WBC 6.3 RBC 4.29 L Hgb 13.6 L Hct 38.8 L MCV 90.4 MCH 31.7 MCHC 35.1 RDW 14.5 Plt Count 76 L D MPV 10.0 Absolute Nucleated RBC 0.000 Nucleated RBC % (auto) 0.0 Sodium 138 Potassium 4.4 Chloride 107 Carbon Dioxide 27 Anion Gap 8 L BUN 16 Creatinine 0.68 Estim Creat Clear Calc 103.9 Estimated GFR > 60 POC Glucose 217 H 292 H Random Glucose 284 H Calcium 8.2 L Phosphorus 2.4 L Magnesium 1.5 L 06/24/24 05:37 WBC RBC Hgb Hct MCV MCH MCHC RDW Plt Count MPV Absolute Nucleated RBC Nucleated RBC % (auto) Sodium Potassium Chloride Carbon Dioxide Anion Gap BUN Creatinine Estim Creat Clear Calc Estimated GFR POC Glucose 252 H Random Glucose Calcium Phosphorus Magnesium Discharge Plan Discharge Anticipated Discharge Date/Time: 06/24/24 08:48 Patient Disposition: Home Health Service Discharge Diagnosis: dysphagia Referrals: Nikhil Gray, CLAUDIO- [Primary Care Provider] - 1 Week Gera Crawford MD [Physician] - 1 Week Discharge Medications: New levetiracetam 500 mg/5 mL (5 mL) Solution 250 mg G-tube BID 90 Days Qty: 450 0RF metformin 500 mg tablet 500 mg feeding tube BIDWMEAL Qty: 180 0RF Continued ondansetron 8 mg tablet,disintegrating 8 mg PO Q8H PRN (Reason: Nausea And Vomiting) (DME) pen needle, diabetic 31 gauge x 5/16 needle See Rx Instructions subcut QID Qty: 1200 Rx Instructions: As directed (DME) lancets 33 gauge misc See Rx Instructions topical QID Qty: 100 Rx Instructions: As directed Changed atorvastatin 10 mg tablet 10 mg feeding tube BEDTIME Qty: 90 1RF repaglinide 0.5 mg tablet 0.5 mg feeding tube TID Qty: 270 1RF baclofen 10 mg tablet 10 mg feeding tube DAILY PRN (Reason: muscle spasm) 90 Days Qty: 90 0RF ferrous sulfate [Iron (ferrous sulfate)] 325 mg (65 mg iron) Tablet 325 mg feeding tube BID Qty: 60 2RF cholecalciferol (vitamin D3) [Vitamin D3] 25 mcg (1,000 unit) Tablet 25 mcg feeding tube DAILY Qty: 90 0RF Jardiance 25 mg tablet 25 mg feeding tube DAILY Qty: 90 1RF Discontinued lisinopril 2.5 mg tablet 2.5 mg PO DAILY Qty: 90 1RF nadolol 20 mg tablet 20 mg PO DAILY 90 Days Qty: 90 1RF metformin 500 mg tablet extended release 24 hr 500 mg PO BID 90 Days Qty: 180 1RF levetiracetam 250 mg tablet 250 mg PO BID pantoprazole 40 mg tablet,delayed release (DR/EC) 40 mg PO DAILY@0630 Discharge Orders: Discharge Order (Routine); Ordered 06/24/24 Ordered By: Telly Fernandez Diet: tube feeds Activity on Discharge: As tolerated Stand Alone Forms: Patient Portal Discharge page Print Language: Nigerien Care Plan Goals: manage tube feeds Health Concerns: esophogeal cancer Plan of Treatment: tube feeds, follow up with oncology Assessment: see above
--- NOTE | 2024-06-24 09:51 | MHC.CM.PN ---
IMM 06/24/23 Patient is discharged home today with new T.F.. CORBIN will meet patient at his home today to start home services. [facility] has been notified of the dc today. All dc info has been sent to the agency. [facility] is here to provide transport home.
== END 2024-06-24 09:50 | disposition home health service (06) | DRG 375 ==
LOC: HO.ED 12:15 → HO.EDOVER 13:21 → HO.S3 15:24
PROVIDERS: Internal Medicine Gastroenterology; Student in an Organized Health Care Education/Training Program; Surgery; Admitting Provider Family Medicine; Emergency Provider Emergency Medicine; PCP Nurse Practitioner Family; Visit Provider Internal Medicine
PROC: 0DH63UZ Insertion of Feeding Device into Stomach, Percutaneous Approach (ICD-10-PCS; CPT 43246; principal; 2024-06-17 12:50)
PROC: 0DH60UZ Insertion of Feeding Device into Stomach, Open Approach (ICD-10-PCS; principal; 2024-06-20 13:00)
DX: C15.5 Malignant neoplasm of lower third of esophagus (principal); D61.818 Other pancytopenia; E44.0 Moderate protein-calorie malnutrition; E87.3 Alkalosis; Z68.24 Body mass index [BMI] 24.0-24.9, adult; E11.9 Type 2 diabetes mellitus without complications; E87.6 Hypokalemia; E83.39 Other disorders of phosphorus metabolism; K70.30 Alcoholic cirrhosis of liver without ascites; E86.0 Dehydration; G40.909 Epilepsy, unspecified, not intractable, without status epilepticus; Z20.822 Contact with and (suspected) exposure to COVID-19; Z87.891 Personal history of nicotine dependence; Z79.84 Long term (current) use of oral hypoglycemic drugs; Z79.899 Other long term (current) drug therapy
CPT/HCPCS: 0241U; 36415; 71046; 74177; 80048; 80076; 81001; 82947; 83690; 83735; 84100; 84484; 85025; 85027; 85610; 86850; 86900; 86901; 88305; 93005; 99285; J0131; J0330; J0690; J1100; J1953; J2003; J2270; J2371; J2405; J2470; J2704; J2795; J3010; J3480; J7120; P9073; Q9967

== ENCOUNTER → 2024-06-16 09:49 | Outpatient (BNV) | payer OTHER, SELFPAY | PROVIDERS: Emergency Provider Emergency Medicine; PCP Nurse Practitioner Family; Visit Provider Radiology Diagnostic Radiology | DX: R07.9 Chest pain, unspecified (principal) | CPT/HCPCS: 71046 ==

== ENCOUNTER → 2024-06-16 09:51 | Outpatient (BNV) | payer OTHER, SELFPAY | PROVIDERS: Emergency Provider Emergency Medicine; PCP Nurse Practitioner Family; Visit Provider Internal Medicine Cardiovascular Disease | DX: R10.9 Unspecified abdominal pain (principal) | CPT/HCPCS: 93010 ==

== ENCOUNTER → 2024-06-16 13:13 | Outpatient (BNV) | payer OTHER, SELFPAY | PROVIDERS: Admitting Provider Family Medicine; Emergency Provider Emergency Medicine; PCP Nurse Practitioner Family; Visit Provider Family Medicine | DX: K22.89 Other specified disease of esophagus (principal) | CPT/HCPCS: 99239; G0180 ==

== ENCOUNTER → 2024-06-16 13:13 | Outpatient (BNV) | payer OTHER, SELFPAY | PROVIDERS: Admitting Provider Family Medicine; Emergency Provider Emergency Medicine; PCP Nurse Practitioner Family; Visit Provider Surgery | DX: C15.5 Malignant neoplasm of lower third of esophagus (principal) | CPT/HCPCS: 99024; 99232; 99499 ==

== ENCOUNTER 2024-06-24 12:50 | Emergency (ER) | payer OTHER, SELFPAY ==
--- NOTE | ~2024-06-24 | XR_ITS ---
EXAMINATION: XR ABDOMEN KUB CLINICAL INDICATION: abd pain COMPARISON: Abdomen and pelvis 06/16/2024 FINDINGS: Single AP view of the abdomen. There is a gastrostomy tube in the left upper quadrant. Left anterior abdominal wall surgical dallas are seen from previous intervention. There is a right TIPS stent in place. There are embolization coils in the left epigastric region. Moderate scattered stool is seen in colon without distention. XR/XR KUB IMPRESSION: Moderate constipation. Postoperative changes left midabdomen. There is evidence of previous TIPS procedure and a gastrostomy tube in place. Electronically signed by: Ciaran Chen MD 06/24/2024 04:34 PM EST
[2024-06-24 13:02] VITALS: BP 135/87; BP 138/80; PULSE 112; PULSE 98; RESP 18; TEMP 36.7; O2SAT 95; O2SAT 98; BMI 24.7
--- NOTE | 2024-06-24 13:08 | MHC.CM.ED ---
[facility] Patient was d/c'd home with new g-tube. having difficulty learning how to use g-tube at this time. Patient will need STR until is able to learn how to help with g-tube. Referral for STR placement will be broadcasted at this time. Continue to monitor for d/c needs.
--- NOTE | 2024-06-24 13:26 | MHC.CM.ED ---
Discharge tube feeding orders: Glucerna 325ml every 4 hours, 6 times a day while awake. 240ml water flushes every 8 hours.
[2024-06-24 13:31] LABS: COVID-19 Test Negative (Negative); IDNOW Serial# 55D5AD1C
--- NOTE | 2024-06-24 13:36 | ED.GENADULT ---
HPI - General Adult General Chief complaint: General Medical Stated complaint: ? PROBLEM WITH G TUBE? PER EMS Time Seen by Provider: 06/24/24 13:03 Source: patient, EMS, RN notes reviewed and old records reviewed Mode of arrival: EMS Limitations: no limitations History of Present Illness ED Provider: Ilya Silva PA-C HPI narrative: 63 y/o male with history of DM, HTN, HLD, seizures, history of esophageal cancer s/p chemoradiation who was just admitted here for progressive dysphagia, weight loss and underwent G-tube placement, just discharged home today for re-evaluation after it was noted by visiting nursing that the patient's was unable to care for the patient and use the PEG. He was brought back to the ER for potential snf placement. Patient reports when he got home the visiting nurse was there but there was no supplies to give him his meds or tube feeds. He is frustrated. He reports abdominal pain and bloating. He has not had a BM in several days per his report. No N/V and he is passing gas. Pain is at the Gtube site. MD complaint: abdominal pain, nursing care Associated symptoms: denies other symptoms Treatments prior to arrival: none Related Data Home Medications ?Medication ?Instructions ?Recorded ?Confirmed lancets 33 gauge #100 ea 08/15/20 03/29/24 pen needle, diabetic 31 gauge x #1,200 ea 08/15/20 03/29/2411/04 ondansetron 8 mg disintegrating 8 mg PO Q8H PRN Nausea And Vomiting 06/16/24 06/24/24 tablet acetaminophen 325 mg tablet 650 mg PO Q6H PRN Pain (Scale 06/24/24 06/24/24 Score 1-3) magnesium oxide 400 mg feeding tube BIDPC 06/24/24 06/24/24 pantoprazole 40 mg intravenous 40 mg IV BID 06/24/24 06/24/24 solution (Protonix) Previous Rx's ?Medication ?Instructions ?Recorded atorvastatin 10 mg tablet 10 mg feeding tube BEDTIME #90 tabs 06/24/24 baclofen 10 mg tablet 10 mg feeding tube DAILY PRN 06/24/24 muscle spasm 90 days #90 tabs cholecalciferol (vitamin D3) 25 25 mcg feeding tube DAILY #90 tabs 06/24/24 mcg (1,000 unit) tablet (Vitamin D3) empagliflozin 25 mg tablet 25 mg feeding tube DAILY #90 tabs 06/24/24 (Jardiance) ferrous sulfate 325 mg (65 mg 325 mg feeding tube BID #60 tabs 06/24/24 iron) tablet (Iron (ferrous sulfate)) levetiracetam 500 mg/5 mL (5 mL) 250 mg (2.5 mL) G-tube BID 90 days 06/24/24 oral solution #450 mL metformin 500 mg tablet 500 mg feeding tube BIDWMEAL #180 06/24/24 tabs repaglinide 0.5 mg tablet 0.5 mg feeding tube TID #270 tabs 06/24/24 Allergies Allergy/AdvReac Type Severity Reaction Status Date / Time No Known Allergies Allergy Verified 06/24/24 13:06 Review of Systems Review of Systems: Yes all other systems are reviewed and are negative [facility] Past Medical History Medical History Wears dentures History of blood transfusion History of GI bleed (~2017) Type 2 diabetes mellitus with hyperglycemia Type 2 diabetes mellitus with diabetic polyneuropathy Hyperlipidemia LDL goal <70 Adenocarcinoma of lower esophagus Hx of splenomegaly Male circumcision Constipation Thrombocytopenia Elevated ferritin Esophageal varices Seizure disorder Alcoholic cirrhosis Hepatitis C Anemia Stroke Hepatic cirrhosis Diabetes Esophagus, carcinoma Surgical History History of surgery on lower extremity (~2003) S/P transjugular intrahepatic portosystemic shunt (~2017) Hx of circumcision Hx of colonoscopy (08/2021) Hx of endoscopy (08/2021) Family History Family History Father No problems noted. Mother Diabetes mellitus Social History Social History Household Members: Spouse Household Members Other:: Spouse: Antoni Housing: House Are you a primary care director to a significant other at home: No Do you presently have visiting nurse or other home services: No Alcohol intake: never Patient Tobacco Use Status: Former Tobacco user Tobacco use type: Cigarette Years Smoked: 10 Smoked in Last 30 Days: No e-Cigarette/Vaping Use: Never Used Second Hand Smoke Exposure: No Use of substances other than those prescribed or required for medical reasons: No Advance Directives: Yes Advance Directives on File: Yes Advance Directives Date on File: 01/28/21 Do you have a plan to hurt others: No Plan service: No Current occupational status: disabled Cognitive needs: No Hearing needs: No Vision needs: No Physical Exam ED Vital Signs: Vital Signs - 24 hr 06/24/24 13:02 06/24/24 13:46 Temperature 98.1 F Pulse Rate 98 98 Respiratory Rate 18 Blood Pressure 135/87 135/87 Pulse Oximetry 98 98 Oxygen Delivery Method Room Air BMI result Body Mass Index 24.7 Appearance: Alert. Oriented X3. No acute distress. Head: normocephalic, atraumatic. Eyes: Pupils equal, round and reactive to light. ENT: Pharynx normal. No tonsillar swelling or exudate. Neck: Normal inspection. Neck supple. CVS: Normal heart rate and rhythm. Pulses normal. Respiratory: No respiratory distress. Breath sounds normal. Abdomen: PEG in place, dressing is dry and intact. Soft, mild distention and nontender. +BS x4 Skin: Skin warm and dry. Normal skin color. Normal skin turgor. No rashes. Extremities: No lower extremity edema. No joint swelling. Neuro/psych: Oriented X 3. No motor deficit. No sensory deficit. CN II-XII intact. Normal speech and cognition. Course Reevaluation(s) Reevaluation #1: Physician observation started at 13:38. Patient placed in physician observation because patient is awaiting PT and case management team evaluation for the possible need of snf placement. At the time observation was started patient's vital signs were stable. Patient is alert and oriented. Neuro exam is non-focal. CV: RRR and lungs are clear. Will continue to monitor. Time: 13:38 Medications Administered Generic Name Dose Route Start Last Admin Trade Name Freq PRN Reason Stop Dose Admin Acetaminophen 650 mg 06/24/24 15:06 06/24/24 16:33 Acetaminophen Oral Liquid 650 Mg/20.3 Ml Solution PO 650 mg Q6H PRN Administration mild pain Insulin Human Lispro 0 unit 06/24/24 16:00 06/24/24 16:34 Insulin Lispro 100 Unit/Ml 3 Ml Vial SUBCUT 4 unit Q4H KINGA Administration Protocol Magnesium Oxide 400 mg 06/24/24 17:30 06/24/24 16:34 Magnesium Oxide 400 Mg Tablet G-TUBE 400 mg BIDPC KINGA Administration Metformin HCl 500 mg 06/24/24 17:00 06/24/24 16:34 Metformin Hcl 500 Mg Tablet G-TUBE 500 mg BIDWM KINGA Administration Polyethylene Glycol 17 gm 06/24/24 15:17 06/24/24 16:34 Polyethylene Glycol 3350 17 Gm Powd.Pack PO 17 gm DAILY PRN Administration constipation Vitamin D 25 mcg 06/24/24 15:15 06/24/24 16:34 Cholecalciferol (Vitamin D3) 25 Mcg Tablet G-TUBE 25 mcg DAILY KINGA Administration Medical Decision Making Medical Decision Making [facility] Narrative: 63 y/o male with history of DM, HTN, HLD, seizures, history of esophageal cancer s/p chemoradiation who was just admitted here for progressive dysphagia, weight loss and underwent G-tube placement, just discharged home today for re-evaluation after it was noted by visiting nursing that the patient's was unable to care for the patient and use the PEG. will need placement. PT/CM consults placed. labs done this morning. c/o abdominal pain. no BM in a few days. KUB ordered home meds restarted. tube feeds ordered, spoke with nutrition. bolus feeds 270cc q4 and free water 280cc q8 ordered. has been hyperglycemic. will start lispro SS q4 with TF boluses. will continue to monitor pending placement. Differential Diagnosis Differential Diagnoses: The differential diagnosis associated with the presentation includes constipation, malnutrition, FTT, SBO Admission/Observation Consideration of admission/observation: Escalation of care including admission/observation considered Lab Data [facility] Lab Attestation statement: I reviewed the patient's lab results. Labs: Lab Results 06/24/24 06/24/24 Range/Units 13:14 16:09 POC Glucose 239 H (60-115) mg/dL COVID-19 (JIMENA) Negative (Negative) COVID-19 Clin Com See Note Independent Interpretation I performed an independent interpretation of an: Plain X-Ray Interpretation: constipated, no obstruction Radiology Impression Discussion of test interpretation with radiology: I have reviewed the radiologist's reading. Independent Historian Clinical information obtained from an independent historian. History obtained from or confirmed by: Spouse and EMS External Record Review External record reviewed: Inpatient record, Prior outpatient labs and Prior outpatient radiology Prescription Management I considered prescription management with: Pain Medication and Other (laxatives, insulin) Chronic Conditions Patient?s care impacted by: Diabetes and Other (esophageal cancer) Critical Care Time Critical Care Time Critical Care Time: No Discharge Plan Discharge Clinical Impression: Adenocarcinoma of lower esophagus Type 2 diabetes mellitus with hyperglycemia Qualifiers: Diabetes mellitus computer terminal operator insulin use: without computer terminal operator use Qualified Code(s): E11.65 - Type 2 diabetes mellitus with hyperglycemia Constipation Qualifiers: Constipation type: unspecified constipation type Qualified Code(s): K59.00 - Constipation, unspecified Patient Disposition: Still a Patient Prescriptions: No Action ondansetron 8 mg tablet,disintegrating 8 mg PO Q8H PRN (Reason: Nausea And Vomiting) levetiracetam 500 mg/5 mL (5 mL) Solution 250 mg G-tube BID 90 Days Qty: 450 0RF metformin 500 mg tablet 500 mg feeding tube BIDWMEAL Qty: 180 0RF atorvastatin 10 mg tablet 10 mg feeding tube BEDTIME Qty: 90 1RF repaglinide 0.5 mg tablet 0.5 mg feeding tube TID Qty: 270 1RF baclofen 10 mg tablet 10 mg feeding tube DAILY PRN (Reason: muscle spasm) 90 Days Qty: 90 0RF ferrous sulfate [Iron (ferrous sulfate)] 325 mg (65 mg iron) Tablet 325 mg feeding tube BID Qty: 60 2RF cholecalciferol (vitamin D3) [Vitamin D3] 25 mcg (1,000 unit) Tablet 25 mcg feeding tube DAILY Qty: 90 0RF Jardiance 25 mg tablet 25 mg feeding tube DAILY Qty: 90 1RF acetaminophen 325 mg Tablet 650 mg PO Q6H PRN (Reason: Pain (Scale Score 1-3)) magnesium oxide 400 mg magnesium Tablet 400 mg feeding tube BIDPC pantoprazole [Protonix] 40 mg Recon Soln 40 mg IV BID (DME) pen needle, diabetic 31 gauge x 5/16 needle See Rx Instructions subcut QID Qty: 1200 Rx Instructions: As directed (DME) lancets 33 gauge misc See Rx Instructions topical QID Qty: 100 Rx Instructions: As directed Print Language: Vietnamese
[2024-06-24 13:46] VITALS: BP 135/87; PULSE 98; O2SAT 98
--- NOTE | 2024-06-24 14:38 | MHC.CM.ED ---
Per Rupal RN, [facility] is 1st choice. Referral made to [facility]. [facility] does not feel [facility] will authorize acute rehab. [facility], and [facility] willing to [facility] a bed. [facility], [facility], [facility] at [facility] and [facility] are still reviewing. This information was provided to patient. Patient states those all suck. Patient verifies he has only been to [facility] after a CVA. T/W explained that is typically the only reason [facility] will authorize acute rehab. Per patient, ok to speak to patient's , Antoni, but she is currently at a doctors appointment. Left a voicemail at [phone] requesting return telephone call. Continue to monitor for d/c needs.
--- NOTE | 2024-06-24 15:00 | PHA.MEDREC ---
Pharmacy Consult ? Medication Reconciliation Pharmacy has completed the medication reconciliation. Patient was just discharged today from [facility] ([id number]), med rec was done using med rec note from previous visit and med orders from [facility]. Spoke to patient, he said he doesn't take anything by mouth and couldn't list meds that he takes.
--- NOTE | 2024-06-24 15:37 | PC.NURSE ---
patient a&ox3, vss, pt c/o abd pain- provider was notified, gtube intact- pt states the dressing to the gtube needs to be changed today. this nurse went to [facility] to obtain supplies to change the dressing. pt also to have KUB xray as he is unsure when his last BM was, tube feed was obtained from kitchen- and will be administered after the kub and medications. additionally, is at bedside who stated to this nurse that she is unable to do the tube feeds at home, she repeated this multiple times. the patient stated that they couldnt do the tube feeds because they did not have any of the feed or other supplies to do them- the again stated she just cant do them. Case mangement came to speak with the patient as he is willing to go to a SNF. The patient was explained that this nurse will be in after the KUB to do dressing change, medicate and do the tube feed bolus as ordered by provider. POC will be obtained as well.
--- NOTE | 2024-06-24 15:42 | MHC.CM.ED ---
Addendum entered by Erlinda Lee 06/24/24 15:56: Received notification from [facility] that they did not offer a bed yet and that they are waiting for clinicals to be sent. Requested clinicals resent. Original Note: Met with patient and , Antoni at bedside to discuss d/c plan. Options discussed. [facility]. [facility] has been asked to obtain insurance auth. Patient requesting pain meds and tube feeding. Per Kathy LAWRENCE and Rupal MILLER, tube feeds and pain meds already ordered. Continue to monitor for d/c needs.
[2024-06-24 16:13] LABS: Glucose, Whole Blood 239 mg/dL (60-115)
[2024-06-24] MEDS: Acetaminophen Oral Liquid 650 MG/20.3 ML SOLUTION PO (16:33)
[2024-06-24] MEDS: Magnesium Oxide 400 MG TABLET G-TUBE (16:34)
[2024-06-24] MEDS: Cholecalciferol (Vitamin D3) 25 MCG TABLET G-TUBE (16:34)
[2024-06-24] MEDS: polyethylene glycoL 3350 17 GM POWD.PACK PO (16:34)
[2024-06-24] MEDS: Insulin Lispro 100 UNIT/ML 3 ML VIAL SUBCUT ×2 (16:34→20:11)
[2024-06-24] MEDS: metFORMIN HCl 500 MG TABLET G-TUBE (16:34)
--- NOTE | 2024-06-24 17:01 | PC.NURSE ---
patient a&ox3, medications were crushed and disollved in water, pt was given medications through gtube, flushed with water, pt was also given tube feed and dressing was changed. The patient was explained step by step verbally and visually the process of giving the medications and give himself the tube feed. this nurse told the patient that he will give himself the next tube feed to demonstrate his understanding. the patient was able to verbally teach back how to do his tube dressing, he also does have 12 [place] intact that a nonstick was placed over as well as tape. the patient was very receptive to learning how to do this as he doesn't want to have to stay in a SNF long term care administrator and he feels his is just unable to be able to do this for him. This nurse encouraged the patient to be independent with his meds and feedings as he is perfectly able to perform this on his own if willing. Pt was again receptive and willing to attempt to do the next feeding himself.
--- NOTE | 2024-06-24 18:35 | MHC.CM.ED ---
CM met with patient. [facility] unable to offer a bed. Pt is refusing to go to rehab. Aware that [facility] [place] are offering beds. States too far. Pt believes he can do his own drsg changes and tube feedings. RN demonstrated tube feeding. Pt will continue tube feeding with RN present overnight with goal to discharge home with [facility] tomorrow. Pt called and supplies have arrived from [facility], including tube feeding, materials and dressings. Pt had verify what was in the box. Pt states he will need BLS transport in the morning. TWIN called and spoke with the on-call RN at [facility]. Yomaira customer care manager bridge/structure inspection team leader called CM. Discussion regarding new plan of care with patient administering his own tube feedings and drsg changes. Yomaira was concerned because patients was unable to participate in tube feeding education today and supplies had not arrived. CM explained that patient is agreeable and capable of self administering his tube feedings per RN. Will re-demonstrate tube feedings overnight. CM will check in with RN and patient in the morning regarding successful demonstration of tube feeding. CM will call Yomaira in the morning with updates. [phone]. Yomaira is not working, but will see patient if necessary on Thursday. Dora from [facility] will see patient on Thursday to admit to service. Pt is aware of this and is agreeable. CM has not booked transport home pending verification that patient can self administer his tube feedings and complete drsg changes. TWIN has not cancelled bed at [facility] or [place] until verification of self administered tube feeding in the morning. CM D/C plan: Home 06/25 if successful with self-administered tube feedings and drsg changes. Call Yomaira rigging worker at [facility] [phone] with updates If patient comfortable with feedings, [facility] will admit patient on Thursday. Confirm when speaking with Yomaira Will need BLS transport arranged home.
[2024-06-24 19:59] LABS: Glucose, Whole Blood 254 mg/dL (60-115)
--- NOTE | 2024-06-24 20:00 | PC.NURSE ---
BM pt was able to have a BM
[2024-06-24] MEDS: levETIRAcetam Oral Soln 500 MG/5 ML 250 MG G-TUBE (20:11)
[2024-06-24] MEDS: Ferrous Sulfate 324 MG TABLET.DR PO (20:11)
[2024-06-24] MEDS: Docusate Sodium 100 MG/10 ML LIQUID PO (20:11)
[2024-06-24] MEDS: Atorvastatin Calcium 10 MG TABLET G-TUBE (20:11)
--- NOTE | 2024-06-24 21:41 | PC.NURSE ---
pt a&ox3, around 8pm this nurse and the patient began the teach back demonstration we spoke of earlier today. the patient was able to crush his own medications, dissolve them in water, he flushed his tube with 30ml before medications- he alfredo up the liquified medications and administered them and repeated the flush after. pt then did a 270ml bolus feed via gravity and finished with approx 200ml water- pt felt full at this point so the other 40ml was held. Additionally the patient was able to tell this nurse in detail how to do his dressing change as well. The patient also stated after Thats it? that was easy! so let me get this straight, I flush with 30ml before I do meds or a feed and I flush after meds and after a feed This nurse told the patient they were correct. It took approximately 1 hour to ensure the patient was able to understand. He was told that he will have additional opportunity to do this before discharging home. Patient does need a nurse at bedside while he does this just to ensure he has it down so he can discharge to home vs a facility. This nurse gave report to overflow nurse who will ensure the patient does the feed later tonight himself as well.
[2024-06-24 22:00] VITALS: BP 120/73; PULSE 100; RESP 12; TEMP 36.7; O2SAT 94
[2024-06-25] MEDS: Acetaminophen Oral Liquid 650 MG/20.3 ML SOLUTION PO ×2 (00:18→09:15)
[2024-06-25 00:21] LABS: Glucose, Whole Blood 235 mg/dL (60-115)
--- NOTE | 2024-06-25 00:22 | ED.GENADULT ---
HPI - General Adult General Chief complaint: General Medical Stated complaint: ? PROBLEM WITH G TUBE? PER EMS Time Seen by Provider: 06/24/24 13:03 Source: patient, EMS, RN notes reviewed and old records reviewed Mode of arrival: EMS Limitations: no limitations History of Present Illness Associated symptoms: denies other symptoms Treatments prior to arrival: none Related Data Home Medications ?Medication ?Instructions ?Recorded ?Confirmed lancets 33 gauge #100 ea 08/15/20 03/29/24 pen needle, diabetic 31 gauge x #1,200 ea 08/15/20 03/29/24/16 ondansetron 8 mg disintegrating 8 mg PO Q8H PRN Nausea And Vomiting 06/16/24 06/24/24 tablet acetaminophen 325 mg tablet 650 mg PO Q6H PRN Pain (Scale 06/24/24 06/24/24 Score 1-3) magnesium oxide 400 mg feeding tube BIDPC 06/24/24 06/24/24 pantoprazole 40 mg intravenous 40 mg IV BID 06/24/24 06/24/24 solution (Protonix) Previous Rx's ?Medication ?Instructions ?Recorded atorvastatin 10 mg tablet 10 mg feeding tube BEDTIME #90 tabs 06/24/24 baclofen 10 mg tablet 10 mg feeding tube DAILY PRN 06/24/24 muscle spasm 90 days #90 tabs cholecalciferol (vitamin D3) 25 25 mcg feeding tube DAILY #90 tabs 06/24/24 mcg (1,000 unit) tablet (Vitamin D3) empagliflozin 25 mg tablet 25 mg feeding tube DAILY #90 tabs 06/24/24 (Jardiance) ferrous sulfate 325 mg (65 mg 325 mg feeding tube BID #60 tabs 06/24/24 iron) tablet (Iron (ferrous sulfate)) levetiracetam 500 mg/5 mL (5 mL) 250 mg (2.5 mL) G-tube BID 90 days 06/24/24 oral solution #450 mL metformin 500 mg tablet 500 mg feeding tube BIDWMEAL #180 06/24/24 tabs repaglinide 0.5 mg tablet 0.5 mg feeding tube TID #270 tabs 06/24/24 Allergies Allergy/AdvReac Type Severity Reaction Status Date / Time No Known Allergies Allergy Verified 06/24/24 13:06 [facility] Past Medical History Medical History (Updated 06/24/24 @ 16:38 by MELINDA Lewis) Wears dentures History of blood transfusion History of GI bleed (~2017) Type 2 diabetes mellitus with hyperglycemia Type 2 diabetes mellitus with diabetic polyneuropathy Hyperlipidemia LDL goal <70 Adenocarcinoma of lower esophagus Hx of splenomegaly Male circumcision Constipation Thrombocytopenia Elevated ferritin Esophageal varices Seizure disorder Alcoholic cirrhosis Hepatitis C Anemia Stroke Hepatic cirrhosis Diabetes Esophagus, carcinoma Surgical History (Updated 06/24/24 @ 19:20 by Nikhil Gray, [facility]) S/P percutaneous endoscopic gastrostomy (PEG) tube placement History of surgery on lower extremity (~2003) S/P transjugular intrahepatic portosystemic shunt (~2017) Hx of circumcision Hx of colonoscopy (08/2021) Hx of endoscopy (08/2021) Family History Family History Father No problems noted. Mother Diabetes mellitus Social History Social History Household Members: Spouse Household Members Other:: Spouse: Antoni Housing: House Are you a primary director of health care marketing to a significant other at home: No Do you presently have visiting nurse or other home services: No Alcohol intake: never Patient Tobacco Use Status: Former Tobacco user Tobacco use type: Cigarette Years Smoked: 10 Smoked in Last 30 Days: No e-Cigarette/Vaping Use: Never Used Second Hand Smoke Exposure: No Use of substances other than those prescribed or required for medical reasons: No Advance Directives: Yes Advance Directives on File: Yes Advance Directives Date on File: 01/28/21 Do you have a plan to hurt others: No Plan service: No Current occupational status: disabled Cognitive needs: No Hearing needs: No Vision needs: No Physical Exam ED Vital Signs: Vital Signs - 24 hr 06/24/24 13:02 06/24/24 13:46 06/24/24 22:00 Temperature 98.1 F 98.0 F Pulse Rate 98 98 100 Respiratory Rate 18 12 Blood Pressure 135/87 135/87 120/73 Pulse Oximetry 98 98 94 Oxygen Delivery Method Room Air Room Air BMI result Body Mass Index 24.7 Course Course Course Narrative: June 25, 2024, 12:20 a.m. request from nursing for additional pain control for this patient. Patient currently receiving acetaminophen which has not offered much pain relief. Patient has a history of esophageal cancer and is status post PEG placement. He will likely be discharged home. Trial of oxycodone q.6 hours p.r.n. severe pain. Nursing will continue to monitor. Patient to be reassessed in the morning for consideration for additional analgesia to be discharged home. Medications Administered Generic Name Dose Route Start Last Admin Trade Name Freq PRN Reason Stop Dose Admin Acetaminophen 650 mg 06/24/24 15:06 06/25/24 00:18 Acetaminophen Oral Liquid 650 Mg/20.3 Ml Solution PO 650 mg Q6H PRN Administration mild pain Atorvastatin Calcium 10 mg 06/24/24 21:00 06/24/24 20:11 Atorvastatin Calcium 10 Mg Tablet G-TUBE 10 mg BEDTIME KINGA Administration Docusate Sodium 100 mg 06/24/24 21:00 06/24/24 20:11 Docusate Sodium 100 Mg/10 Ml Liquid PO 100 mg BID KINGA Administration Ferrous Sulfate 324 mg 06/24/24 21:00 06/24/24 20:11 Ferrous Sulfate 324 Mg Tablet. PO 324 mg BID KINGA Administration Insulin Human Lispro 0 unit 06/24/24 16:00 06/24/24 20:11 Insulin Lispro 100 Unit/Ml 3 Ml Vial SUBCUT 6 unit Q4H KINGA Administration Protocol Levetiracetam 250 mg 06/24/24 21:00 06/24/24 20:11 Levetiracetam Oral Soln 500 Mg/5 Ml G-TUBE 250 mg BID KINGA Administration Magnesium Oxide 400 mg 06/24/24 17:30 06/24/24 16:34 Magnesium Oxide 400 Mg Tablet G-TUBE 400 mg BIDPC KINGA Administration Metformin HCl 500 mg 06/24/24 17:00 06/24/24 16:34 Metformin Hcl 500 Mg Tablet G-TUBE 500 mg BIDWM KINGA Administration Polyethylene Glycol 17 gm 06/24/24 15:17 06/24/24 16:34 Polyethylene Glycol 3350 17 Gm Powd.Pack PO 17 gm DAILY PRN Administration constipation Vitamin D 25 mcg 06/24/24 15:15 06/24/24 16:34 Cholecalciferol (Vitamin D3) 25 Mcg Tablet G-TUBE 25 mcg DAILY KINGA Administration Medical Decision Making Lab Data Labs: Lab Results 06/24/24 06/24/24 06/24/24 Range/Units 13:14 16:09 19:57 POC Glucose 239 H 254 H (60-115) mg/dL COVID-19 (JIMENA) Negative (Negative) COVID-19 Clin Com See Note 06/25/24 Range/Units 00:16 POC Glucose 235 H (60-115) mg/dL COVID-19 (JIMENA) (Negative) COVID-19 Clin Com Discharge Plan Discharge Clinical Impression: Adenocarcinoma of lower esophagus Type 2 diabetes mellitus with hyperglycemia Qualifiers: 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: without custodial use Qualified Code(s): E11.65 - Type 2 diabetes mellitus with hyperglycemia Constipation Qualifiers: Constipation type: unspecified constipation type Qualified Code(s): K59.00 - Constipation, unspecified Patient Disposition: Still a Patient Prescriptions: No Action ondansetron 8 mg tablet,disintegrating 8 mg PO Q8H PRN (Reason: Nausea And Vomiting) levetiracetam 500 mg/5 mL (5 mL) Solution 250 mg G-tube BID 90 Days Qty: 450 0RF metformin 500 mg tablet 500 mg feeding tube BIDWMEAL Qty: 180 0RF atorvastatin 10 mg tablet 10 mg feeding tube BEDTIME Qty: 90 1RF repaglinide 0.5 mg tablet 0.5 mg feeding tube TID Qty: 270 1RF baclofen 10 mg tablet 10 mg feeding tube DAILY PRN (Reason: muscle spasm) 90 Days Qty: 90 0RF ferrous sulfate [Iron (ferrous sulfate)] 325 mg (65 mg iron) Tablet 325 mg feeding tube BID Qty: 60 2RF cholecalciferol (vitamin D3) [Vitamin D3] 25 mcg (1,000 unit) Tablet 25 mcg feeding tube DAILY Qty: 90 0RF Jardiance 25 mg tablet 25 mg feeding tube DAILY Qty: 90 1RF acetaminophen 325 mg Tablet 650 mg PO Q6H PRN (Reason: Pain (Scale Score 1-3)) magnesium oxide 400 mg magnesium Tablet 400 mg feeding tube BIDPC pantoprazole [Protonix] 40 mg Recon Soln 40 mg IV BID (DME) pen needle, diabetic 31 gauge x 5/16 needle See Rx Instructions subcut QID Qty: 1200 Rx Instructions: As directed (DME) lancets 33 gauge misc See Rx Instructions topical QID Qty: 100 Rx Instructions: As directed Print Language: Welsh
[2024-06-25] MEDS: Insulin Lispro 100 UNIT/ML 3 ML VIAL SUBCUT ×4 (00:49→12:21)
[2024-06-25] MEDS: oxyCODONE HCl Immed Release 5 MG TABLET G-TUBE ×3 (00:50→12:13)
--- NOTE | 2024-06-25 00:50 | PC.NURSE ---
At 00:50 AM today, patient was medicated per PRN orders with Oxycodone 5mg Immediate Release tablet (crushed) and Tylenol 650mg liquid via G-Tube. 30 mL water flush performed before and after each medication administration. Patient did not want to do a full 270 mL feed as ordered, but agreed to partial 120 mL feed with Glucerna for overnight feed. Aware that plan is for another feed at 4AM and agreed to this pending comfort level or sleeping. This RN witnessed patient demonstrate ability to crush medication, dissolve in water, flush, and administer feeds to himself via the G-Tube with ease. Feed administered via gravity to G-Tube. Medicated for 8 out of 10 pain with Oxycodone & Tylenol. Patient thankful, alert & oriented, calm/cooperative. Plan to discharge home in the morning with follow-up [facility] services (see case management notes) and pain medications to be sent to patient's preferred pharmacy ([facility] at [address] [place] [address] in [place], [place]) upon discharge after follow-up, per MELINDA Goodman. Lights dimmed, patient is resting and attempting to sleep at this time. Care ongoing by this RN.
[2024-06-25 04:50] VITALS: BP 120/73; PULSE 100; RESP 12; TEMP 36.7
[2024-06-25 04:51] VITALS: BP 120/73; PULSE 100; RESP 12; TEMP 36.7
[2024-06-25 04:52] LABS: Glucose, Whole Blood 227 mg/dL (60-115)
[2024-06-25 06:00] VITALS: RESP 16
--- NOTE | 2024-06-25 06:19 | PC.NURSE ---
called pharmacy for pt am medication due at 0630. will bring down
--- NOTE | 2024-06-25 06:22 | PC.NURSE ---
waiting on medication and then pt will receive the hydration 240ml water.
[2024-06-25] MEDS: Omeprazole/Na Bicarb Oral Susp 20 MG/10 ML UD Cup 40 MG PO (07:17)
[2024-06-25 07:25] LABS: Glucose, Whole Blood 200 mg/dL (60-115)
--- NOTE | 2024-06-25 07:52 | PC.NURSE ---
Assisted and educated with tube feeds. Patient states he feels bloated.
[2024-06-25] MEDS: Docusate Sodium 100 MG/10 ML LIQUID PO (09:06)
[2024-06-25] MEDS: metFORMIN HCl 500 MG TABLET G-TUBE (09:06)
[2024-06-25] MEDS: Cholecalciferol (Vitamin D3) 25 MCG TABLET G-TUBE (09:06)
[2024-06-25] MEDS: Magnesium Oxide 400 MG TABLET G-TUBE (09:06)
[2024-06-25] MEDS: Empagliflozin 25 MG TABLET G-TUBE (09:06)
[2024-06-25] MEDS: Ferrous Sulfate 324 MG TABLET.DR PO (09:06)
[2024-06-25 10:43] LABS: Creatinine Clr Calc Pharmacy 117.8; Estimated Glomerular Filt Rate > 60
[2024-06-25] MEDS: levETIRAcetam Oral Soln 500 MG/5 ML 250 MG G-TUBE (11:38)
[2024-06-25 12:20] LABS: Glucose, Whole Blood 206 mg/dL (60-115)
--- NOTE | 2024-06-25 12:47 | MHC.CM.ED ---
PT DISCHARGING HOME W/OPTION CARE FOR NEW GTUBE FEEDS AND [facility] FOR SN, [facility] NURSE ASHLYN WILL COMPLETE PT'S SOC TOMORROW 06/26, CM MET W/PT WHO IS CONFIDENT HE CAN DO HIS DRESSINGS/FEEDS, PT'S NURSE CONCERNED HE WILL NOT BE ABLE TO CRUSH MEDS ON HIS OWN, CM DID CONTACT PT'S FABIAN AT # ON FILE AND VERIFIED SHE WILL BE ABLE TO ASSIST PT IN CRUSHING MEDS AND W ILLPICK UP PT'S PAIN MEDS ONCE HOME AND SETTLED, FABIAN REPORTING SHE WAS OVERWHELMED WHEN PT FIRST CAME HOME HOWEVER WILL DO MUCH SHE CAN FOR PT WHEN HE RETURNS, FABIAN AWARE PT WILL TRANSPORTED HOME VIA AMBULANCE AT 1PM.
[2024-06-25 13:29] VITALS: BP 120/73; PULSE 100; RESP 16; TEMP 36.7; O2SAT 94
== END 2024-06-25 13:30 | disposition home or self-care (01) ==
PROVIDERS: Physician Assistant; Emergency Provider Emergency Medicine; PCP Nurse Practitioner Family
DX: C15.9 Malignant neoplasm of esophagus, unspecified (principal); E11.65 Type 2 diabetes mellitus with hyperglycemia; K59.00 Constipation, unspecified; Z11.52 Encounter for screening for COVID-19; I10 Essential (primary) hypertension; E78.5 Hyperlipidemia, unspecified; Z79.02 Long term (current) use of antithrombotics/antiplatelets; Z79.899 Other long term (current) drug therapy; Z79.84 Long term (current) use of oral hypoglycemic drugs
CPT/HCPCS: 36415; 74018; 82565; 82947; 87635; 97162; 99284; 99285

== ENCOUNTER → 2024-06-24 15:16 | Outpatient (BNV) | payer OTHER, SELFPAY | PROVIDERS: Emergency Provider Emergency Medicine; PCP Nurse Practitioner Family; Visit Provider Radiology Diagnostic Radiology | DX: R10.9 Unspecified abdominal pain (principal) | CPT/HCPCS: 74018 ==

== ENCOUNTER 2024-07-06 11:20 | Outpatient (AMB) | payer OTHER, SELFPAY ==
--- NOTE | 2024-07-06 11:26 | A.OFFVIS_ITS ---
Vital Signs 07/06/24 11:27 Height 5 ft 7 in Weight 167 lb 4 oz BMI 26.2 Intake Visit Reasons: s/p Open gastrostomy tube placement Intake Note: This patient presents for post-op assessment status post Open gastrostomy tube placement. Pt c/o; no concerns with the surgical site. Cafe Lead Required: No Accompanied by: Other Relationship Allergies No Known Allergies Allergy (Verified 07/06/24 11:34) HPI HPI s/p Open gastrostomy tube placement: Details: He is here for a postop visit. He had undergone open gastrostomy tube placement for advanced esophageal cancer last 06/20/2024. He has been using the G-tube and there has been no problems. He denies any significant complaints at this time. He does admit to some incisional pain on the upper abdominal incision. [facility] Medical History Wears dentures History of blood transfusion History of GI bleed (~2017) Type 2 diabetes mellitus with hyperglycemia Type 2 diabetes mellitus with diabetic polyneuropathy Hyperlipidemia LDL goal <70 Adenocarcinoma of lower esophagus Hx of splenomegaly Male circumcision Constipation Thrombocytopenia Elevated ferritin Esophageal varices Seizure disorder Alcoholic cirrhosis Hepatitis C Anemia Stroke Hepatic cirrhosis Diabetes Esophagus, carcinoma Surgical History S/P percutaneous endoscopic gastrostomy (PEG) tube placement History of surgery on lower extremity (~2003) S/P transjugular intrahepatic portosystemic shunt (~2017) Hx of circumcision Hx of colonoscopy (08/2021) Hx of endoscopy (08/2021) Family History Father No problems noted. Mother Diabetes mellitus Social History Household Members: Spouse Household Members Other:: Spouse: Antoni Housing: House Are you a primary aged or disabled care worker to a significant other at home: No Do you presently have visiting nurse or other home services: No Alcohol intake: never Patient Tobacco Use Status: Former Tobacco user Tobacco use type: Cigarette Years Smoked: 10 e-Cigarette/Vaping Use: Never Used Second Hand Smoke Exposure: No Advance Directives Date on File: 01/28/21 service: No Current occupational status: disabled Cognitive needs: No Hearing needs: No Vision needs: No Review of Systems Const Denies chills and Denies fever(s) Card Denies chest pain Resp Denies cough GI Denies abdominal pain Physical Exam Vital Signs: BMI result Body Mass Index 26.2 Const Other: Ambulating, looks well General: comfortable and no acute distress GI Other: Incision well healed, dallas intact, G-tube in place Palpation (GI): Soft to palpation, not firm and no guarding Assessment & Plan Assessment & Plan (1) Adenocarcinoma of lower esophagus: Code(s): C15.5 - Malignant neoplasm of lower third of esophagus Category: Medical Plan: Status post open gastrostomy tube placement. He is doing very well after G-tube placement. He has been tolerating G-tube feeds. I removed all his skin dallas I instructed him on good care for the G-tube I reminded him that he needs to be followed by the oncologist because of his advanced esophageal cancer. Coding Level of Care Code Global (13165) Diagnoses Adenocarcinoma of lower esophagus C15.5
[2024-07-06 11:27] VITALS: BMI 26.2
== END 2024-07-06 11:46 | disposition home or self-care (01) ==
PROVIDERS: PCP Nurse Practitioner Family; Visit Provider Surgery
DX: C15.5 Malignant neoplasm of lower third of esophagus (principal)
CPT/HCPCS: 99024

== ENCOUNTER → 2024-07-06 11:20 | Outpatient (BNVA) | payer OTHER, SELFPAY | PROVIDERS: PCP Nurse Practitioner Family; Visit Provider Surgery | DX: C15.5 Malignant neoplasm of lower third of esophagus (principal); Z08 Encounter for follow-up examination after completed treatment for malignant neoplasm; Z96.89 Presence of other specified functional implants | CPT/HCPCS: 99212 ==

== ENCOUNTER 2024-08-05 10:49 | Inpatient (IN) | payer OTHER, SELFPAY ==
--- NOTE | ~2024-08-05 | XR_ITS ---
CLINICAL HISTORY: back pain 3 views lumbar spine Comparison: 09/25/2016 Findings: Mild grade 1 retrolisthesis at a few levels. No acute fracture. Lower lumbar spine facet osteoarthritis. No significant disc narrowing. Small anterior vertebral body osteophytes at a few levels. Degenerative narrowing of the L4/L5 interspinous process interval. IMPRESSION: No acute fracture This document has been electronically signed by: Lizz Tyson MD on 08/08/2024 11:04:20
--- NOTE | ~2024-08-05 | US_ITS ---
Ultrasound paracentesis History: Ascites. Risks and benefits and possible complications were discussed with the patient and consent form was signed. A safe pocket of ascitic fluid was identified using ultrasound guidance, and the overlying skin was marked. The abdomen prepped and draped in sterile fashion. 1% lidocaine was used as a local anesthetic. Using ultrasound guidance, a 5 fr catheter was placed into the ascitic pocket. 1.9 liters of yellow fluid was removed passively. The catheter was then removed. A few packaging sales representative images from before and after the examination were obtained. The procedure was performed by Douglas Alford PA-C and supervised by Dr. Palacios. US/US paracentesis abd w/image Impression: Ultrasound-guided paracentesis as described above. No immediate complications Electronically signed by: Constantin Mas MD 08/30/2024 03:09 PM EDT RP
--- NOTE | ~2024-08-05 | CT_ITS ---
EXAMINATION: CT ABDOMEN PELVIS WITH IV CONTRAST HISTORY: pain and distention COMPARISON: Comparison is made with the prior examination dated 06/16/2024. TECHNIQUE: CT scan of the abdomen and pelvis was performed following administration of 85 mL Omnipaque 350 using standard departmental protocol. Coronal and sagittal reformatted images were generated and reviewed. Oral contrast material was not administered at the request of the referring physician. This CT exam was performed with one or more of the following dose reduction techniques: automated exposure control, adjustment of the mA and/or kV according to patient size, use of iterative reconstruction technique. DLP: 701 mGy-cm FINDINGS: LOWER CHEST: The visualized lung bases are clear. There is no pleural effusion. CARDIOVASCULATURE: The heart is normal in size. There is no pericardial effusion. LIVER: The liver is again noted to demonstrate a nodular contour consistent with cirrhosis. No liver mass is identified. A TIPS shunt is again seen in place. GALLBLADDER / BILE DUCTS: The gallbladder is unremarkable. There is no intra or extrahepatic biliary ductal dilatation. SPLEEN: The spleen remains enlarged. No focal splenic lesion is identified. PANCREAS: The pancreas is unremarkable in appearance. ADRENAL GLANDS: Within normal limits. KIDNEYS/RETROPERITONEUM: No renal calculi are identified. There is no hydronephrosis. No renal masses are identified. LYMPH NODES: There are prominent mesenteric lymph nodes which are not enlarged by CT criteria. No retroperitoneal lymphadenopathy is seen. VASCULATURE: The abdominal aorta is normal in caliber. MESENTERY/PERITONEUM: Multiple coils are again noted in the region of the celiac axis. There is a moderate amount of ascites in the upper abdomen and pelvis which is new from the prior study. There is no free intraperitoneal gas. STOMACH: Again seen is marked thickening and irregularity of distal esophagus consistent with the patient's known adenocarcinoma in this region. The remainder of the stomach is collapsed. A gastrostomy tube is seen in place. SMALL BOWEL: The small bowel is normal in caliber. COLON: There is mild wall thickening of the ascending and descending colon which may be due to cirrhosis and ascites. APPENDIX: Normal. URINARY BLADDER/PELVIC ORGANS: The urinary bladder is collapsed, limiting evaluation. The prostate is normal in size. BONES / SOFT TISSUES: No suspicious bony or soft tissue abnormalities. CT/CT abdomen pelvis w IV con IMPRESSION: 1. New moderate amount of ascites. Mild wall thickening of the ascending and descending colon made be due to cirrhosis and ascites. 2. Cirrhosis of the liver, status post TIPS placement. Splenomegaly. 3. Marked irregularity and wall thickening of the distal esophagus, consistent with the patient's known adenocarcinoma. Electronically signed by: Abhi Shah MD 08/05/2024 02:30 PM [facility]
--- NOTE | ~2024-08-05 | US_ITS ---
CLINICAL HISTORY: ascites, pancreatitis, assess TIPs patency US abdomen limited Comparison: CT/VA/SR - CT ABDOMEN PELVIS W IV CON - 08/05/24 13:53 EST Findings: Tips stent noted within the main portal vein extending through the liver to the IVC. Flow is identified throughout the tips stent. All velocities in cm/s Main portal vein: 30 TIPS: 292 Ascites incidentally noted around the liver. The liver is lobulated and appears cirrhotic. IMPRESSION: Patent TIPS with increased intra stent velocities up to 318 cm/s raising concern for stenosis. This document has been electronically signed by: Los Gaitan MD on 08/05/2024 18:44:15
[2024-08-05 11:16] VITALS: BP 128/79; PULSE 120; RESP 18; TEMP 36.6; O2SAT 98; BMI 24.4
--- NOTE | 2024-08-05 11:17 | ED.GENADULT ---
HPI - General Adult General Chief complaint: Abdominal Pain Stated complaint: abd pain, vomiting Time Seen by Provider: 08/05/24 13:31 Source: patient, RN notes reviewed and old records reviewed Mode of arrival: ambulatory Limitations: no limitations History of Present Illness ED Provider: Ilya Silva PA-C HPI narrative: 63 y/o male with history of DM, HTN, HLD, seizures, history of recurrent esophageal cancer s/p chemoradiation back on chemo (pembrolizumab) w/ Dr. Crawford, dysphagia with failure to thrive s/p PEG in May 2024, history of cirrhosis s/p TIPS who presents to the ER from Oncology office for evaluation of abdominal pain, nausea and vomiting. He reports pain in his abdomen has been worsening over the last 2-3 weeks. He has had recurrent nausea and vomiting, continuing to lose weight. He reports the pain in his abdomen is in the middle near his umbilicus and in his back, 9/10 in severity. He reports his abdomen is significantly distended from his baseline. He is having normal BMs. MD complaint: abdominal pain, N/V Onset (ago): week(s) Location: abdomen Radiation: back Severity: severe Severity scale (1-10): 9 Pain Consistency: constant Relieving factors: none Exacerbating factors: none Associated symptoms: nausea/vomiting and weakness Treatments prior to arrival: none Related Data Home Medications ?Medication ?Instructions ?Recorded ?Confirmed lancets 33 gauge #100 ea 08/15/20 07/28/24 pen needle, diabetic 31 gauge x #1,200 ea 08/15/20 07/28/24 5/16 ondansetron 8 mg disintegrating 8 mg PO Q8H PRN Nausea And Vomiting 06/16/24 07/28/24 tablet acetaminophen 325 mg tablet 650 mg PO Q6H PRN Pain (Scale 06/24/24 07/28/24 Score 1-3) magnesium oxide 400 mg feeding tube BIDPC 06/24/24 07/28/24 pantoprazole 40 mg intravenous 40 mg IV BID 06/24/24 07/28/24 solution (Protonix) lisinopril 2.5 mg tablet 2.5 mg feeding tube DAILY 08/05/24 nadolol 20 mg tablet 20 mg feeding tube DAILY 08/05/24 Previous Rx's ?Medication ?Instructions ?Recorded atorvastatin 10 mg tablet 10 mg feeding tube BEDTIME #90 tabs 06/24/24 baclofen 10 mg tablet 10 mg feeding tube DAILY PRN 06/24/24 muscle spasm 90 days #90 tabs cholecalciferol (vitamin D3) 25 25 mcg feeding tube DAILY #90 tabs 06/24/24 mcg (1,000 unit) tablet (Vitamin D3) ferrous sulfate 325 mg (65 mg 325 mg feeding tube BID #60 tabs 06/24/24 iron) tablet (Iron (ferrous sulfate)) levetiracetam 500 mg/5 mL (5 mL) 250 mg (2.5 mL) G-tube BID 90 days 06/24/24 oral solution #450 mL metformin 500 mg tablet 500 mg feeding tube BIDWMEAL #180 06/24/24 tabs repaglinide 0.5 mg tablet 0.5 mg feeding tube TID #270 tabs 06/24/24 oxycodone 5 mg tablet 5 mg PO BID PRN Breakthrough Pain, 07/11/24 Moderate #30 tabs empagliflozin 25 mg tablet 25 mg feeding tube DAILY #90 tabs 07/27/24 (Jardiance) Allergies Allergy/AdvReac Type Severity Reaction Status Date / Time No Known Allergies Allergy Verified 08/05/24 11:18 Review of Systems Review of Systems: Yes all other systems are reviewed and are negative PMFSH Past Medical History Medical History Wears dentures History of blood transfusion History of GI bleed (~2017) Type 2 diabetes mellitus with hyperglycemia Type 2 diabetes mellitus with diabetic polyneuropathy Hyperlipidemia LDL goal <70 Adenocarcinoma of lower esophagus Hx of splenomegaly Male circumcision Constipation Thrombocytopenia Elevated ferritin Esophageal varices Seizure disorder Alcoholic cirrhosis Hepatitis C Anemia Stroke Hepatic cirrhosis Diabetes Esophagus, carcinoma Surgical History S/P percutaneous endoscopic gastrostomy (PEG) tube placement History of surgery on lower extremity (~2003) S/P transjugular intrahepatic portosystemic shunt (~2017) Hx of circumcision Hx of colonoscopy (08/2021) Hx of endoscopy (08/2021) Family History Family History Father No problems noted. Mother Diabetes mellitus Social History Social History Household Members: Spouse Household Members Other:: Spouse: Antoni Housing: House Are you a primary healthcare interpreter to a significant other at home: No Do you presently have visiting nurse or other home services: No Alcohol intake: never Patient Tobacco Use Status: Former Tobacco user Tobacco use type: Cigarette Years Smoked: 10 Smoked in Last 30 Days: No e-Cigarette/Vaping Use: Never Used Second Hand Smoke Exposure: No Use of substances other than those prescribed or required for medical reasons: No Advance Directives: Yes Advance Directives on File: Yes Advance Directives Date on File: 01/28/21 service: No Current occupational status: disabled Cognitive needs: No Hearing needs: No Vision needs: No Physical Exam ED Vital Signs: Vital Signs - 24 hr 08/05/24 11:16 08/05/24 14:06 08/05/24 14:14 Temperature 97.9 F Pulse Rate 120 H 113 H Respiratory Rate 18 16 16 Blood Pressure 128/79 121/84 Pulse Oximetry 98 97 Oxygen Delivery Method Room Air Room Air BMI result Body Mass Index 24.4 Appearance: Alert. Oriented X3. Appears chronically ill, in pain, uncomfortable Head: normocephalic, atraumatic. temporal wasting Eyes: Pupils equal, round and reactive to light. ENT: Pharynx normal. No tonsillar swelling or exudate. Neck: Normal inspection. Neck supple. CVS: Normal heart rate and rhythm. Pulses normal. Respiratory: No respiratory distress. Breath sounds normal. Abdomen: PEG in place, healing midline surgical scar from chest to upper abdomen, softly distended with periumbilical tenderness, hypoactive +BS x4 Skin: Skin warm and dry. Normal skin color. Normal skin turgor. No rashes. Extremities: No lower extremity edema. No joint swelling. Neuro/psych: Oriented X 3. No motor deficit. No sensory deficit. CN II-XII intact. Normal speech and cognition. steady gait Course Course Course Narrative: RME, this is a rapid medical exam performed by Sg Renteria please refer to primary provider for complete H&P- 63 year past significant for diabetes, seizure disorder on Keppra, hypertension, esophageal adenocarcinoma status post G-tube insertion 06/20/24 presenting for evaluation of severe abdominal pain he presents from the oncology office today. He endorses passive suicidal ideation but has no plans to harm himself. Plan for medical workup including a CT scan of the abdomen pelvis Reevaluation(s) Reevaluation #1: pain improved after dilaudid on reassessment. dr. dumas at the bedside for admission. Time: 15:07 Medications Administered Discontinued Medications Generic Name Dose Route Start Last Admin Trade Name Freq PRN Reason Stop Dose Admin Hydromorphone HCl 1 mg 08/05/24 13:36 08/05/24 14:14 Hydromorphone Hcl 1 Mg/Ml Syringe IVPUSH 08/05/24 13:37 1 mg ONCE ONE Administration Protocol Lactated Ringer's 1,000 mls @ 999 mls/hr 08/05/24 13:45 08/05/24 14:13 Lr IV 08/05/24 14:45 999 mls/hr .Q1H1M KINGA Administration Iohexol 100 ml 08/05/24 14:05 08/05/24 14:06 Iohexol 350 Mg/Ml 100 Ml Infus..Btl IV 08/05/24 14:06 85 ml ONCE ONE Administration Ondansetron HCl 4 mg 08/05/24 13:36 08/05/24 14:14 Ondansetron Hcl 4 Mg/2 Ml Vial IVPUSH 08/05/24 13:37 4 mg ONCE ONE Administration Medical Decision Making Medical Decision Making MDM Narrative: 63-year-old male with history of recurrent esophageal adenocarcinoma on Keytruda, last infusion was 06/20/2024, failure to thrive with dysphagia status post PEG in May, history of cirrhosis status post TIPS who presents to the ER from the oncology office for evaluation of abdominal pain, distention, nausea, vomiting. Lab workup significant for lipase of 1100. He is in severe pain, tachycardic. He does have abdominal distention but is abdomen is soft, no rigidity. IV was established and he was given IV fluids and Dilaudid. CT scan of the abdomen is showing a normal gallbladder, no evidence of biliary ductal dilatation, no report of masses there. His pancreas is also normal on the CT scan. He has new moderate ascites and splenomegaly. 2:45 - IR consulted for diagnostic paracentesis with concern for possible infectious versus malignant process. He has a mild leukocytosis of 13.7. No fevers. Will cover with empiric dose of Rocephin pending paracentesis. Will also get abdominal ultrasound to assess patency of tips and rule out portal vein thrombosis. planning for admission for further management. Differential Diagnosis Differential Diagnoses: The differential diagnosis associated with the presentation includes gallstone pancreatitis, pancreatitis due to Keytruda, pancreatitis due to cancer mets/tumor obstruction, TIPS malfunction, SBP, bowel obstruction Admission/Observation Consideration of admission/observation: Escalation of care including admission/observation considered Consult Healthcare Provider Management of the patient was discussed with: Hospitalist Lab Data MDM Lab Attestation statement: I reviewed the patient's lab results. leukocytosis, thrombocytopenia, hyperglycemia with significantly elevated lipase, LFT and ALP elevation 08/05/24 11:50 08/05/24 11:50 Labs: Lab Results 08/05/24 08/05/24 Range/Units 11:50 14:15 WBC 13.7 H (4.8-10.8) X10*3/uL RBC 4.74 (4.60-5.80) X10*6/uL Hgb 14.4 (14.0-18.0) g/dl Hct 41.8 L (42.0-52.0) % MCV 88.2 (80.0-98.0) fL MCH 30.4 (27.0-33.0) pg MCHC 34.4 (31.0-36.0) g/dl RDW 14.1 (11.0-16.0) % Plt Count 116 L D (160-400) X10*3/uL MPV 10.5 (9.4-12.4) fL Immature Gran % (Auto) 0.4 (0.0-0.4) % Neut % (Auto) 84.2 H (45-73) % Lymph % (Auto) 4.5 L (20-40) % Garza % (Auto) 8.8 (2-11) % Eos % (Auto) 1.6 (0-4) % Baso % (Auto) 0.5 (0-2) % Lymph # (Auto) 0.6 L (1.2-4.9) X10*3/uL Garza # (Auto) 1.2 (0.1-1.2) X10*3/uL Eos # (Auto) 0.2 (0.0-0.4) X10*3/uL Baso # (Auto) 0.1 (0.0-0.2) X10*3/uL Abs Immat Gran (auto) 0.05 H (0.00-0.03) X10*3/uL Absolute Neuts (auto) 11.5 H (2.0-8.3) x10*3/uL Absolute Nucleated RBC 0.000 (0.0-0.012) X10*3/uL Nucleated RBC % (auto) 0.0 (0.0-0.2) /100WBC PT 12.7 H (10.9-12.4) SEC INR 1.1 (0.9-1.1) Sodium 135 (135-145) mmol/L Potassium 4.0 (3.3-5.1) mmol/L Chloride 100 (96-108) mmol/L Carbon Dioxide 26 (22-29) mmol/L Anion Gap 13 (12-20) BUN 25 H (9-16) mg/dL Creatinine 0.65 (0.5-1.4) mg/dL Estim Creat Clear Calc 108.7 Estimated GFR > 60 Random Glucose 176 H (60-115) mg/dL Lactic Acid 2.2 H* (0.5-2.0) mmol/L Lactic Acid F/U @ 2Hr 2.4 H* (0.5-2.0) mmol/L Calcium 9.1 (8.4-10.2) mg/dL Magnesium 2.1 (1.6-2.6) mg/dL Total Bilirubin 1.3 H (0.0-1.0) mg/dL AST 69 H (5-37) U/L ALT 47 H (0-40) U/L Alkaline Phosphatase 185 H (39-117) U/L Troponin I High Sens < 2.7 (<3.5-35.0) ng/L Total Protein 7.4 (6.5-8.0) g/dL Albumin 3.2 L (3.5-5.0) g/dL Lipase 1129 H (8-78) U/L Salicylates < 5.0 L (15-30) mg/dL Acetaminophen < 3 (<30) mcg/mL Ethyl Alcohol < 10 mg/dL Independent Interpretation I performed an independent interpretation of an: EKG and CT Scan Interpretation: EKG with sinus tachycardia, ventricular rate 109 beats per minute, no ST segment elevations or depressions. Normal QTC CT scan with significant splenomegaly, cirrhotic liver, tips in place, no evidence peripancreatic fluid collection or pseudocyst Radiology Impression Discussion of test interpretation with radiology: I have reviewed the radiologist's reading. Independent Historian Clinical information obtained from an independent historian. History obtained from or confirmed by: Spouse External Record Review External record reviewed: Inpatient record, Office record, Outpatient record, Prior outpatient labs and Prior outpatient radiology Prescription Management I considered prescription management with: Pain Medication and Antibiotic Chronic Conditions Patient?s care impacted by: Other (esophageal cancer on keytruda) Critical Care Time Critical Care Time Critical Care Time: Yes Total Critical Care Time: 42 Attestation: I have personally provided critical care time exclusive of time spent on separately billable procedures. Time includes review of lab data, radiology results, discussion with consultants, and monitoring for potential decompensation. Intervention performed as documented. Discharge Plan Discharge Clinical Impression: Acute pancreatitis Qualifiers: Pancreatitis type: other Acute pancreatitis complication: unspecified Qualified Code(s): K85.80 - Other acute pancreatitis without necrosis or infection Ascites Qualifiers: Ascites type: other type Qualified Code(s): R18.8 - Other ascites Patient Disposition: Admitted As Inpatient Print Language: Danish
--- NOTE | 2024-08-05 11:21 | ECG_ITS ---
Test Reason : abd pain Blood Pressure : */* mmHG Vent. Rate : 109 BPM Atrial Rate : 109 BPM P-R Int : 160 ms QRS Dur : 62 ms QT Int : 354 ms P-R-T Axes : 31 12 -19 degrees QTcB Int : 476 ms Sinus tachycardia Anterior infarct (cited on or before 16-Jun-2024) Abnormal ECG When compared with ECG of 16-Jun-2024 10:00, Previous ECG has undetermined rhythm, needs review Questionable change in initial forces of Anterior leads Nonspecific T wave abnormality now evident in Lateral leads Referred By: Douglas Renteria Electronically Signed By: HILARIO GLEASON MD
[2024-08-05 11:57] LABS: MANUAL DIFF FLAG NO
[2024-08-05 11:59] LABS: Basophils Absolute Auto 0.1 X10*3/uL (0.0-0.2); Basophils Percent Auto 0.5 % (0-2); Eosinophils Absolute Auto 0.2 X10*3/uL (0.0-0.4); Eosinophils Percent Auto 1.6 % (0-4); Hematocrit 41.8 % (42.0-52.0); Hemoglobin 14.4 g/dl (14.0-18.0); Imm Gran Abs Auto 0.05 X10*3/uL (0.00-0.03); Imm Gran Pct Auto 0.4 % (0.0-0.4); Lymphocytes Absolute Auto 0.6 X10*3/uL (1.2-4.9); Lymphocytes Percent Auto 4.5 % (20-40); Mean Corpuscular HGB Conc 34.4 g/dl (31.0-36.0); Mean Corpuscular Hemoglobin 30.4 pg (27.0-33.0); Mean Corpuscular Volume 88.2 fL (80.0-98.0); Mean Platelet Volume 10.5 fL (9.4-12.4); Monocytes Absolute Auto 1.2 X10*3/uL (0.1-1.2); Monocytes Percent Auto 8.8 % (2-11); Neutrophils Absolute Auto 11.5 x10*3/uL (2.0-8.3); Neutrophils Percent Auto 84.2 % (45-73); Platelet Count 116 X10*3/uL (160-400); Red Blood Count 4.74 X10*6/uL (4.60-5.80); Red Cell Distribution Width 14.1 % (11.0-16.0); White Blood Count 13.7 X10*3/uL (4.8-10.8)
[2024-08-05 12:08] LABS: INTERNATIONAL NORM RATIO 1.1 (0.9-1.1); Prothrombin Time 12.7 SEC (10.9-12.4)
[2024-08-05 12:16] LABS: Acetaminophen LAB < 3 mcg/mL (<30); Alanine Aminotransferase 47 U/L (0-40); Albumin Level 3.2 g/dL (3.5-5.0); Alkaline Phosphatase 185 U/L (39-117); Anion Gap 13 (12-20); Aspartate Amino Transferase 69 U/L (5-37); Bilirubin Total 1.3 mg/dL (0.0-1.0); Blood Urea Nitrogen 25 mg/dL (9-16); Calcium 9.1 mg/dL (8.4-10.2); Carbon Dioxide 26 mmol/L (22-29); Chloride 100 mmol/L (96-108); Creatinine Clr Calc Pharmacy 108.7; Estimated Glomerular Filt Rate > 60; Ethanol < 10 mg/dL; Glucose Random 176 mg/dL (60-115); Magnesium 2.1 mg/dL (1.6-2.6); Salicylate < 5.0 mg/dL (15-30); Sodium 135 mmol/L (135-145); Total Protein 7.4 g/dL (6.5-8.0)
[2024-08-05 12:18] LABS: Lactic Acid 2.2 mmol/L (0.5-2.0)
[2024-08-05 12:25] LABS: Lipase 1129 U/L (8-78); Troponin-I High Sensitivity < 2.7 ng/L (<3.5-35.0)
--- OUTSIDE RECORDS SUMMARY | 2024-08-05 13:42 | XMS_ITS ---
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
--- OUTSIDE RECORDS SUMMARY | 2024-08-05 13:42 | XMS_ITS | Clinical Summary ---
Author Organization [facility] Address [address] [place] [address] Phone Care Team Providers Care Advisor To Command In Combat Name Role Phone Nikhil Gray NP Primary Care Provider Allergies No known active allergies Medications pantoprazole (PROTONIX) 40 mg EC tablet Take 1 tablet (40 mg total) by mouth 1 (one) time each day before breakfast. Do not crush, chew, or split. Active magnesium oxide (MAG-OX) 400 mg magnesium tablet Take 1 tablet (400 mg total) via g-tube 2 (two) times a day. Active acetaminophen (TYLENOL) 325 mg tablet Take by mouth every 6 (six) hours if needed for mild pain. Active ondansetron ODT (ZOFRAN-ODT) 8 mg disintegrating tablet Dissolve 1 tablet (8 mg total) on top of the tongue every 8 (eight) hours if needed for nausea or vomiting. Active atorvastatin (LIPITOR) 10 mg tablet Take 1 tablet (10 mg total) by mouth at bedtime. 06/21/20 24 Active baclofen (LIORESAL) 10 mg tablet TAKE 1 TABLET BY MOUTH DAILY NEEDED FOR MUSCLE SPASM FOR 90 DAYS 05/02/20 24 Active Jardiance 25 mg tablet Take 1 tablet (25 mg total) by mouth 1 (one) time each day. 04/25/20 24 Active ferrous sulfate 325 mg (65 mg elemental iron) tablet take 1 tablet (325mg) by mouth twice daily. 04/29/20 24 Active levETIRAcetam (KEPPRA) 100 mg/mL solution TAKE 250 MG (2.5 ML) VIA G-TUBE 2 TIMES A DAY FOR 90 DAYS 06/24/19 25 Active levETIRAcetam (KEPPRA) 250 mg tablet Take 1 tablet (250 mg total) by mouth every 12 (twelve) hours. 02/20/20 24 Active lidocaine (LIDODERM) 5 % patch APPLY 1 PATCH TOPICALLY DAILY LEAVE ON MOST PAINFUL AREA FOR UP TO 12 HRS 12/23/19 24 Active lisinopriL (PRINIVIL,ZESTRIL) 2.5 mg tablet Take 1 tablet (2.5 mg total) by mouth 1 (one) time each day. 06/21/20 24 Active metFORMIN (GLUCOPHAGE) 500 mg tablet TAKE 1 TABLET VIA FEEDING TUBE 2 TIMES PER DAY WITH MEALS 06/24/19 25 Active nadoloL (CORGARD) 20 mg tablet Take 1 tablet (20 mg total) by mouth 1 (one) time each day. 04/25/20 24 Active oxyCODONE (ROXICODONE) 5 mg immediate release tablet TAKE 1 TABLET BY MOUTH TWICE A DAY NEEDED FOR BREAKTHROUGH PAIN 07/11/19 25 Active oxyCODONE (ROXICODONE) 5 mg/5 mL solution TAKE 5ML'S BY MOUTH EVERY 6 HOURS NEEDED FOR PAIN 06/28/19 25 Active metFORMIN XR (GLUCOPHAGE-XR) 500 mg 24 hr tablet Take 1 tablet (500 mg total) by mouth 2 (two) times a day. 05/16/20 24 Active cholecalciferol (VITAMIN D-3) 25 mcg (1,000 unit) tablet Take 1 tablet (1,000 Units total) by mouth 1 (one) time each day. Active Active Problems Problem Noted Date Diagnosed Date Adenocarcinoma of esophagus 07/19/2024 Anemia 07/19/2024 Constipation 07/19/2024 Elevated ferritin 07/19/2024 Hepatic cirrhosis 07/19/2024 Hepatitis C 07/19/2024 Hyperlipidemia 07/19/2024 Seizure disorder 07/19/2024 Stroke (cerebrum) 07/19/2024 Thrombocytopenia 07/19/2024 Type 2 diabetes mellitus 07/19/2024 Encounters Date Type Department Care Team Description 07/26/2024 12:24 PM EST - 07/26/2024 11:59 PM EST Hospital Encounter [facility] Radiation Oncology [address] [place] [id number] Valentine Santillan MD Adenocarcinoma of esophagus (CMS/HCC) (Primary Dx); Head and neck cancer (CMS/HCC) Discharge Disposition: Home or Self Care 07/26/2024 12:02 PM EST - 07/26/2024 11:59 PM EST Hospital Encounter [facility] Radiation Oncology [address] [address] Discharge Disposition: Home or Self Care 07/19/2024 Telephone [facility] Radiation Oncology [address] [address] May Qureshi MA from Last 3 Months Surgical History Surgery Date Site/Laterality Comments G-TUBE PLACE PERCUTANEOUS BACK SURGERY N/A T.I.P.S PROCEDURE LEG SURGERY Right lower leg fracture with repair Medical History Medical History Date Comments Esophageal cancer (CMS/HCC) Diabetes mellitus ([facility]/HCC) Hyperlipidemia Stroke ([facility]/HCC) Family History Medical History Relation Name Comments Diabetes Mother Stomach cancer Sister Cancer Neg Hx Relation Name Status Comments Mother Sister Social History Tobacco Use Types Packs/Day Years Used Date Smoking Tobacco: Former Cigarettes Smokeless Tobacco: Never Alcohol Use Standard Drinks/Week Comments Never 0 (1 standard drink = 0.6 oz pur e alcohol) Sex and Gender Information Value Date Recorded Sex Assigned at Not on file Legal Sex Male 6:13 PM EST Gender Identity Not on file Sexual Orientation Not on file Occupation Industry Job Start Date Job End Date disabled Not on file Not on file Not on file Obstetrics History Last Filed Vital Signs Vital Sign Reading Time Taken Comments Blood Pressure 109/74 07/26/2024 12:42 PM EST Pulse 98 07/26/2024 12:42 PM EST Temperature 35.8 ??C (96.5 ??F) 07/26/2024 12:[address] Respiratory Rate 16 07/26/2024 12:42 PM EST Oxygen Saturation 99% 07/26/2024 12:42 PM EST Inhaled Oxygen Concentration - - Weight 73 kg (161 lb) 07/26/2024 12:42 PM EST Height 170.2 cm (5' 7 ) 07/26/2024 12:42 PM EST Body Mass Index 25.22 07/26/2024 12:42 PM EST Plan of Treatment Health Maintenance Due Date Last Done Comments Diabetes: Annual GFR (Glomerular Filtration Rate) 1960 Diabetes: Annual Foot Exam 1970 Diabetes: Annual Retina Eye Exam 1970 Hepatitis A Vaccines (1 of 2 - Risk 2-dose series) 10/27/1979 Zoster Vaccines (1 of 2) 10/27/1979 Hepatitis B Vaccines (1 of 3 - Risk 3-dose series) 2020 RSV Immunization Patients 60+ Years Old (1 - Risk 60-74 years 1-dose series) 2020 Cholesterol Screening (Lipid Panel) 05/24/2022 Colorectal Cancer Screening: Colonoscopy 05/24/2022 Depression Screening 05/24/2022 HIV Screening 05/24/2022 Hepatitis C Screening 05/24/2022 Social Influencers of Health Screening 05/24/2022 Diabetes: Annual Urine Albumin-Creatinine Ratio (uACR) 07/19/2024 Diabetes: Blood Sugar Control Test (HGBA1C) 07/19/2024 Hypertension/CHF/CAD Annual BMP Blood Test 07/26/2024 DTaP,Tdap,and Td Vaccines (3 - Td or Tdap) 04/14/2032 04/14/2022, 03/08/2018 Pneumococcal Vaccine: 50+ Years Completed 04/20/2023, 04/27/2018 Pneumococcal Vaccine: Pediatrics (0 to 5 Years) and At-Risk Patients (6 to 64 Years) Completed 04/20/2023, 04/27/2018 Influenza Vaccine Completed 02/21/2024, , 03/04/2022, Additional history exists COVID-19 Vaccine Completed 02/26/2024, , 05/23/2021, Additional history exists HIB Vaccines Aged Out No longer eligi ble based on patient's age to complete this topic HPV Vaccines Aged Out No longer eligi ble based on patient's age to complete this topic IPV Vaccines Aged Out No longer eligi ble based on patient's age to complete this topic MMR Vaccines Aged Out No longer eligi ble based on patient's age to complete this topic Meningococcal ACWY Vaccine Aged Out N o longer eligible based on patient's age to complete this topic Meningococcal B Vacine Aged Out No lo nger eligible based on patient's age to complete this topic RSV Immunization Patients Under 20 months Aged Out No longer eligible based on patient's age to complete this topic Varicella Vaccines Aged Out No longer eligible based on patient's age to complete this topic Insurance [place] - [place] [facility] Member Subscriber Plan / Payer (Ef fective 2020-Present) Name:Tj Granda Relation to Subscriber:Self Name:Tj Granda Payer ID:[id number] Group ID:[id number] Type:Not on file Address: [address] [place] [address] Care Teams Advisor To [employer] In [employer] Relationship Specialty Start Date End Date Nikhil Gray NP [address], [place] PCP - General Family Medicine 07/19/24
--- OUTSIDE RECORDS SUMMARY | 2024-08-05 13:42 | XMS_ITS ---
Author Organization [facility] Address [address] [place] [address] Care Team Providers Care Thermal Molder Name Role Phone SAÚL BERKOWITZ Primary Care Provider Benjamin Anguiano Jr ALLERGIES No Known Allergies REASON FOR VISIT Patient presents today for esophageal adenocarcinoma MEDICATIONS Medication SIG (Take, Route, Frequency, Duration) Notes Start Date End Date Status Ferrous Sulfate 325 (65 Fe) MG Oral for 90 Active Repaglinide 0.5 MG Oral for 90 Active Jardiance 25 MG 1 tablet Orally Once a day for 30 day(s) Active Lisinopril 2.5 MG TAKE 1 TABLET BY PRATEEK TH EVERY DAY Oral for 90 Active Atorvastatin Calcium 10 MG TAKE 1 TABLET ORALLY BEDTIME Oral for 90 Active levETIRAcetam 250 MG 1 tablet Orally Twi ce a day Active Vitamin D 25 MCG (1000 UT) 1 tablet Oral ly Once a day Active Baclofen 10 MG 1/2 tablet with food or milk Orally Three times a day Active Pantoprazole Sodium 40 MG 1 tablet Orall y Once a day Active Nadolol 20 MG 1 tablet Orally Once a day Active metFORMIN HCl 500 MG 1 tablet with a brandie l Orally Once a day for 30 day(s) Active VITAL SIGNS BMI 27.88 kg/m2 03/17/2024 Blood pressure systolic 00 mm Hg 03/17/20 24 Blood pressure diastolic 00 mm Hg 024 Height 67 in 03/17/2024 Weight 178 lbs 03/17/2024 Encounters Encounter Location Date Provider Diagnosis [facility] [address] [place] [address] 03/17/2024 Benjamin Suggs Jr Esophageal adenocarcinoma C15.9 and S/P TIPS (transjugular intrahepatic portosystemic shunt) Z95.828 ASSESSMENTS Encounter Date Diagnosis Assessment Notes Treatment Notes Treatment Clinical Notes 03/17/2024 Esophageal adenocarcinoma (ICD-10 - C15.9) 03/17/2024 S/P TIPS (transjugular intrahepatic portosystemic shunt) (ICD-10 - Z95.828) 03/17/2024 Other Swallowing problems material was printed PLAN OF TREATMENT Treatment Notes Assessment Notes Other Swallowing problems material was printed Next Appt Details Follow Up: 6 Months, 1 Year, Reason: Provider Name:Benjamin loredo Jr, 09/15/2024 01:55:00 PM, [address] [place] [address], [address], [place], [address],
--- OUTSIDE RECORDS SUMMARY | 2024-08-05 13:42 | XMS_ITS | Encounter Summary ---
Author Organization [employer] [facility] Address [address] [place] [address] Care Team Providers Care Durable Medical Equipment Technician Name Role Phone Nihkil Gray CARVER HAND Primary Care Provider Encounter Details Date Type Department Care Team (Late st Contact Info) Description 07/19/[address] [facility] Radiation Oncology [address] [place] [address] May Qureshi MA Social History Tobacco Use Types Packs/Day Years Used Date Smoking Tobacco: Former Cigarettes Q uit: 11/19/2023 Smokeless Tobacco: Never Alcohol Use Standard Drinks/Week Comments Not Currently 0 (1 standard drink = 0.6 oz pur e alcohol) Sex and Gender Information Value Date Recorded Sex Assigned at Not on file Legal Sex Male 6:13 PM EST Gender Identity Not on file Sexual Orientation Not on file documented as of this encounter Progress Notes * May Qureshi MA - 07/19/2024 9:36 AM EST Spoke with pt aware of consult appt/date time. documented in this encounter Plan of Treatment Not on file documented as of this encounter Visit Diagnoses Not on filedocumented in this encounter Care Teams Durable Medical Equipment Technician Relationship Specialty Start Date End Date Nikhil Gray NP [address] [facility] [place] PCP - General Family Medicine 07/19/24 documented as of this encounter
--- OUTSIDE RECORDS SUMMARY | 2024-08-05 13:42 | XMS_ITS | Encounter Summary ---
Author Organization [facility] Address [address] [place] [address] Care Team Providers Care Car Shunter Name Role Phone Nikhil Gray NP Primary Care Provider [phone] Reason for Referral * Consultation (Routine) - Closed Specialty Diagnoses / Procedures Referred By Supriya t Referred To Contact Radiation Oncology Diagnoses Esophageal cancer ([facility]/HCC) Harjit Crawford MD [address] [place] [address] ATTN: HEMATOLOGY/[place]COLOGY [place] Phone: tel: fax: [facility] Radiation Oncology [address] [place] [phone] Phone: tel: fax: Referral ID Status Reason Start Date Expiration Date V isits Requested Visits Authorized [id number] Closed Specialty Services Required 07/19/2024 07/19/2025 1 1 Reason for Visit * Reason Comments Consult * Consultation (Routine) - Closed Specialty Diagnoses / Procedures Referred By Supriya t Referred To Contact Radiation Oncology Diagnoses Esophageal cancer (CMS/HCC) Harjit Crawford MD [address] [place] [address] ATTN: HEMATOLOGY/[place]OGY [place] Phone: tel: fax: [facility] Radiation Oncology [address] [place] [phone] Phone: tel: fax: Referral ID Status Reason Start Date Expiration Date V isits Requested Visits Authorized [id number] Closed Specialty Services Required 07/19/2024 07/19/2025 1 1 Encounter Details Date Type Department Care Team (Latest Contact Info) Description 07/26/2024 12:24 PM EST - 07/26/2024 11:59 PM EST Hospital Encounter [facility] Radiation Oncology [address] [phone] Valentine Santillan MD [address] [place] [address] Adenocarcinoma of esophagus (CMS/HCC) (Primary Dx); Head and neck cancer (CMS/HCC) Discharge Disposition: Home or Self Care Social History Tobacco Use Types Packs/Day Years [...] file Not on file Not on file documented as of this encounter Last Filed Vital Signs Vital Sign Reading [...] Mass Index 25.22 07/26/2024 12:42 PM EST documented in this encounter Medications at Time of Discharge acetaminophen (TYLENOL) 325 mg tablet Take by mouth every 6 (six) hours if needed for mild pain. atorvastatin (LIPITOR) 10 mg tablet Take 1 tablet (10 mg total) by mouth at bedtime. baclofen (LIORESAL) 10 mg tablet TAKE 1 TABLET BY MOUTH DAILY NEEDED FOR MUSCLE SPASM FOR 90 DAYS 4 cholecalciferol (VITAMIN D-3) 25 mcg (1,000 unit) tablet Take 1 tablet (1,000 Units total) by mouth 1 (one) time each day. ferrous sulfate 325 mg (65 mg elemental iron) tablet take 1 tablet (325mg) by mouth twice daily. 4 Jardiance 25 mg tablet Take 1 tablet (25 mg total) by mouth 1 (one) time each day. 4 levETIRAcetam (KEPPRA) 100 mg/mL solution TAKE 250 MG (2.5 ML) VIA G-TUBE 2 TIMES A DAY FOR 90 DAYS 5 metFORMIN XR (GLUCOPHAGE-XR) 500 mg 24 hr tablet Take 1 tablet (500 mg total) by mouth 2 (two) times a day. 4 nadoloL (CORGARD) 20 mg tablet Take 1 tablet (20 mg total) by mouth 1 (one) time each day. 4 oxyCODONE (ROXICODONE) 5 mg immediate release tablet TAKE 1 TABLET BY MOUTH TWICE A DAY NEEDED FOR BREAKTHROUGH PAIN 5 pantoprazole (PROTONIX) 40 mg EC tablet Take 1 tablet (40 mg total) by mouth 1 (one) time each day before breakfast. Do not crush, chew, or split. levETIRAcetam (KEPPRA) 250 mg tablet Take 1 tablet (250 mg total) by mouth every 12 (twelve) hours. 4 lidocaine (LIDODERM) 5 % patch APPLY 1 PATCH TOPICALLY DAILY LEAVE ON MOST PAINFUL AREA FOR UP TO 12 HRS 4 lisinopriL (PRINIVIL,ZESTRIL) 2.5 mg tablet Take 1 tablet (2.5 mg total) by mouth 1 (one) time each day. 4 magnesium oxide (MAG-OX) 400 mg magnesium tablet Take 1 tablet (400 mg total) via g-tube 2 (two) times a day. metFORMIN (GLUCOPHAGE) 500 mg tablet TAKE 1 TABLET VIA FEEDING TUBE 2 TIMES PER DAY WITH MEALS 5 ondansetron ODT (ZOFRAN-ODT) 8 mg disintegrating tablet Dissolve 1 tablet (8 mg total) on top of the tongue every 8 (eight) hours if needed for nausea or vomiting. oxyCODONE (ROXICODONE) 5 mg/5 mL solution TAKE 5ML'S BY MOUTH EVERY 6 HOURS NEEDED FOR PAIN 5 documented as of this encounter Discharge Disposition Disposition Code Departure Means Destination Home or Self Care documented in this encounter Progress Notes * Alma Alva MA - 07/26/2024 1:00 PM EST Requested ER notes / discharge summary / imaging / procedure notes / pathology from recent [facility] admission (06/16/24 - 06/24/24). Also requesting ER notes / discharge summary from March 2024 admission./ KM * Giulia Starkey RN - 07/26/2024 1:00 PM EST Pain Questionnaire: Location / Radiate Back/stomach area When did it start Long time How long does it last constant Quality achy Severity (0-10) 7 What makes it better Lying down What makes it worse Increased activity Comments: N/A * Valentine Santillan MD - 07/26/2024 1:00 PM EST Images from the original note were not included. 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 Local recurrence in distal esophagus seen on EDG 06/17/24. Surgical G tube placement performed while hospitalized. Assessment/Plan IMPRESSION: I have reviewed patient's prior radiation records. He has had 2 courses of radiation to the distal esophagus for a total dose of 96 Dye approximately. Given the description of the May 2024 EGD and recent May 2024 CT scan at [facility] it appears his recurrent disease is in the same area. Given the amount of radiation he is previously received I do notrecommend any further radiation therapy to the distal esophagus. Further radiation would put him athigh risk of complications including possible fistula formation. Patient is disappointed at this news. I recommend he follow-up with Dr. Crawford regarding other systemic treatment options. PLAN: Follow-up as needed Subjective HISTORY OF PRESENT ILLNESS: Tj Granda is a 63 y.o. male who presents with recurrent esophagus cancer and is seen in consultation today to discuss possible palliative RT. Oncological History: 06/16/2024 - 06/24/2024 Hospitalized at [facility] for odynophagia and dysphagia. 06/16/2024 CT Abdomen and pelvis 06/17/[address] Suggs 06/20/[address] Sahu 07/11/[address] Crawford. Currently: Doing 7 cartons via feeding tube. FU Dr. Crawford TBD, was supposed to be today but cancelled due to today's appt. Hardly any PO intake. SH: lives with in [place], [place]. PRIOR RT: With Dr. Slaughter PRIOR CHEMO: Carboplatin and Taxol completed 08/21/2017. Started Pembrolizumab Feb, Cycle 4 06/20/2024 PROBLEM LIST: Patient Active Problem List Diagnosis Adenocarcinoma of esophagus (CMS/HCC) Anemia Constipation Elevated ferritin Hepatic cirrhosis (CMS/HCC) Hepatitis C Hyperlipidemia Seizure disorder (CMS/HCC) Stroke (cerebrum) (CMS/HCC) Thrombocytopenia (CMS/HCC) Type 2 diabetes mellitus (CMS/HCC) PAST MEDICAL HISTORY: Past Medical History: Diagnosis Date Diabetes mellitus (CMS/HCC) Esophageal cancer (CMS/HCC) Hyperlipidemia Stroke (CMS/HCC) PAST SURGICAL HISTORY: Past Surgical History: Procedure Laterality Date BACK SURGERY N/A G-TUBE PLACE PERCUTANEOUS LEG SURGERY Right lower leg fracture with repair T.I.P.S PROCEDURE FAMILY HISTORY: Family History Problem Relation Name Age of Onset Diabetes Mother Stomach cancer Sister Cancer Neg Hx SOCIAL HISTORY: Social History Socioeconomic History Marital status: Spouse name: Antoni Number of children: 0 Years of education: Not on file Highest education level: Not on file Occupational History Occupation: disabled Tobacco Use Smoking status: Former Types: Cigarettes Smokeless tobacco: Never Substance and Sexual Activity Alcohol use: Never Drug use: Never Sexual activity: Not on file Other Topics Concern Not on file Social History Narrative Not on file ALLERGIES: Allergies as of 07/26/2024 (No Known Allergies) MEDICATIONS: Current Outpatient Medications: acetaminophen (TYLENOL) 325 mg tablet, Take by mouth every 6 (six) hours if needed for mild pain., Disp: , Rfl: atorvastatin (LIPITOR) 10 mg tablet, Take 1 tablet (10 mg total) by mouth at bedtime., Disp: , Rfl: baclofen (LIORESAL) 10 mg tablet, TAKE 1 TABLET BY MOUTH DAILY NEEDED FOR MUSCLE SPASM FOR 90 DAYS, Disp: , Rfl: cholecalciferol (VITAMIN D-3) 25 mcg (1,000 unit) tablet, Take 1 tablet (1,000 Units total) by mouth 1 (one) time each day., Disp: , Rfl: ferrous sulfate 325 mg (65 mg elemental iron) tablet, take 1 tablet (325mg) by mouth twice daily., Disp: , Rfl: Jardiance 25 mg tablet, Take 1 tablet (25 mg total) by mouth 1 (one) time each day., Disp: , Rfl: levETIRAcetam (KEPPRA) 100 mg/mL solution, TAKE 250 MG (2.5 ML) VIA G-TUBE 2 TIMES A DAY FOR 90 DAYS, Disp: , Rfl: metFORMIN XR (GLUCOPHAGE-XR) 500 mg 24 hr tablet, Take 1 tablet (500 mg total) by mouth 2 (two) times a day., Disp: , Rfl: nadoloL (CORGARD) 20 mg tablet, Take 1 tablet (20 mg total) by mouth 1 (one) time each day., Disp: , Rfl: oxyCODONE (ROXICODONE) 5 mg immediate release tablet, TAKE 1 TABLET BY MOUTH TWICE A DAY NEEDED FOR BREAKTHROUGH PAIN, Disp: , Rfl: pantoprazole (PROTONIX) 40 mg EC tablet, Take 1 tablet (40 mg total) by mouth 1 (one) time each daybefore breakfast. Do not crush, chew, or split., Disp: , Rfl: levETIRAcetam (KEPPRA) 250 mg tablet, Take 1 tablet (250 mg total) by mouth every 12 (twelve) hours. (Patient not taking: Reported on 07/26/2024), Disp: , Rfl: lidocaine (LIDODERM) 5 % patch, APPLY 1 PATCH TOPICALLY DAILY LEAVE ON MOST PAINFUL AREA FOR UP TO 12 HRS (Patient not taking: Reported on 07/26/2024), Disp: , Rfl: lisinopriL (PRINIVIL,ZESTRIL) 2.5 mg tablet, Take 1 tablet (2.5 mg total) by mouth 1 (one) time each day. (Patient not taking: Reported on 07/26/2024), Disp: , Rfl: magnesium oxide (MAG-OX) 400 mg magnesium tablet, Take 1 tablet (400 mg total) via g-tube 2 (two) times a day. (Patient not taking: Reported on 07/26/2024), Disp: , Rfl: metFORMIN (GLUCOPHAGE) 500 mg tablet, TAKE 1 TABLET VIA FEEDING TUBE 2 TIMES PER DAY WITH MEALS (Patient not taking: Reported on 07/26/2024), Disp: , Rfl: ondansetron ODT (ZOFRAN-ODT) 8 mg disintegrating tablet, Dissolve 1 tablet (8 mg total) on top of the tongue every 8 (eight) hours if needed for nausea or vomiting., Disp: , Rfl: oxyCODONE (ROXICODONE) 5 mg/5 mL solution, TAKE 5ML'S BY MOUTH EVERY 6 HOURS NEEDED FOR PAIN (Patient not taking: Reported on 07/26/2024), Disp: , Rfl: REVIEW OF SYSTEMS: Review of Systems Constitutional: Negative for fever. HENT: Positive for trouble swallowing. Eyes: Negative for eye problems. Respiratory: Negative for cough and shortness of breath. Gastrointestinal: Negative for diarrhea. Endocrine: Negative for hot flashes. Genitourinary: Negative for dysuria and hematuria. Musculoskeletal: Positive for back pain. Constant lower back, had some kind of procedure few years ago but still has pain Skin: Negative for rash. Neurological: Occasional headaches Psychiatric/Behavioral: Positive for sleep disturbance. The Karnofsky performance scale today is 70, Cares for self; unable to carry on normal activity or to do active work (ECOG equivalent 1). Objective PHYSICAL EXAM: Visit Vitals BP 109/74 (BP Location: Left arm, Patient Position: Sitting, BP Cuff Size: Adult) Pulse 98 Temp 35.8 ??C (96.5 ??F) (Temporal) Resp 16 Ht 1.702 m (67 ) Wt 73 kg (161 lb) SpO2 99% BMI 25.22 kg/m?? Smoking Status Former BSA 1.84 m?? Body mass index is 25.22 kg/m??. No data recorded Physical Exam Constitutional: General: He is not in acute distress. Appearance: Normal appearance. Cardiovascular: Heart sounds: Normal heart sounds. No murmur heard. Pulmonary: Effort: Pulmonary effort is normal. No respiratory distress. Breath sounds: Normal breath sounds. No wheezing. Abdominal: General: There is no distension. Palpations: Abdomen is soft. Comments: Feeding tube left upper quadrant Neurological: General: No focal deficit present. Mental Status: He is alert. Psychiatric: Mood and Affect: Mood normal. Behavior: Behavior normal. DIAGNOSTIC REPORTS REVIEWED: Images not available for review. documented in this encounter Plan of Treatment Scheduled Referrals Name Type Priority Associated Diagnoses Order Schedule Ambulatory referral to Radiation Oncology Outpatient Referral Routine Head and neck cancer (CMS/HCC) Once for 1 Occurrences starting 07/26/2024 until 07/26/2024 documented as of this encounter Visit Diagnoses Diagnosis Adenocarcinoma of esophagus (CMS/HCC)- Primary Malignant neoplasm of esophagus, unspecified internet site designer and neck cancer (CMS/HCC) documented in this encounter Historical Medications * This list may reflect changes made after this encounter. cholecalciferol (VITAMIN D-3) 25 mcg (1,000 unit) tablet Take 1 tablet (1,000 Units total) by mouth 1 (one) time each day. metFORMIN XR (GLUCOPHAGE-XR) 500 mg 24 hr tablet Take 1 tablet (500 mg total) by mouth 2 (two) times a day. 4 oxyCODONE (ROXICODONE) 5 mg/5 mL solution TAKE 5ML'S BY MOUTH EVERY 6 HOURS NEEDED FOR PAIN 5 oxyCODONE (ROXICODONE) 5 mg immediate release tablet TAKE 1 TABLET BY MOUTH TWICE A DAY NEEDED FOR BREAKTHROUGH PAIN 5 nadoloL (CORGARD) 20 mg tablet Take 1 tablet (20 mg total) by mouth 1 (one) time each day. 4 metFORMIN (GLUCOPHAGE) 500 mg tablet TAKE 1 TABLET VIA FEEDING TUBE 2 TIMES PER DAY WITH MEALS 5 lisinopriL (PRINIVIL,ZESTRIL) 2.5 mg tablet Take 1 tablet (2.5 mg total) by mouth 1 (one) time each day. 4 lidocaine (LIDODERM) 5 % patch APPLY 1 PATCH TOPICALLY DAILY LEAVE ON MOST PAINFUL AREA FOR UP TO 12 HRS 4 levETIRAcetam (KEPPRA) 250 mg tablet Take 1 tablet (250 mg total) by mouth every 12 (twelve) hours. 4 levETIRAcetam (KEPPRA) 100 mg/mL solution TAKE 250 MG (2.5 ML) VIA G-TUBE 2 TIMES A DAY FOR 90 DAYS 5 ferrous sulfate 325 mg (65 mg elemental iron) tablet take 1 tablet (325mg) by mouth twice daily. 4 Jardiance 25 mg tablet Take 1 tablet (25 mg total) by mouth 1 (one) time each day. 4 baclofen (LIORESAL) 10 mg tablet TAKE 1 TABLET BY MOUTH DAILY NEEDED FOR MUSCLE SPASM FOR 90 DAYS 4 atorvastatin (LIPITOR) 10 mg tablet Take 1 tablet (10 mg total) by mouth at bedtime. 4 ondansetron ODT (ZOFRAN-ODT) 8 mg disintegrating tablet Dissolve 1 tablet (8 mg total) on top of the tongue every 8 (eight) hours if needed for nausea or vomiting. acetaminophen (TYLENOL) 325 mg tablet Take by mouth every 6 (six) hours if needed for mild pain. magnesium oxide (MAG-OX) 400 mg magnesium tablet Take 1 tablet (400 mg total) via g-tube 2 (two) times a day. pantoprazole (PROTONIX) 40 mg EC tablet Take 1 tablet (40 mg total) by mouth 1 (one) time each day before breakfast. Do not crush, chew, or split. added in this encounter Care Teams Car Shunter Relationship Specialty Start Date End Date Nikhil Gray NP [address] [place], [place] PCP - General Family Medicine 07/19/24 documented as of this encounter
--- OUTSIDE RECORDS SUMMARY | 2024-08-05 13:42 | XMS_ITS | Encounter Summary ---
Author Organization [employer] Address [address] [place] [address] Care Team Providers Care Water Proofer Name Role Phone RodolfoNikhil titus Alma CHAU Primary Care Provider [phone] Encounter Details Date Type Department Care Team (Latest Contact Info) Description 07/26/2024 12:02 PM EST - 07/26/2024 11:59 PM EST Hospital Encounter [facility] Radiation Oncology [address] [address] Discharge Disposition: Home or Self Care Social [...] on file documented as of this encounter Medications at Time of Discharge acetaminophen (TYLENOL) 325 mg tablet Take by mouth every 6 (six) hours if needed for mild pain. atorvastatin (LIPITOR) 10 mg tablet Take 1 tablet (10 mg total) by mouth at bedtime. 4 baclofen (LIORESAL) 10 mg tablet TAKE [...] or Self Care documented in this encounter Plan of Treatment Not on file documented as of this encounter Visit Diagnoses Not on filedocumented in this encounter Care Teams Water Proofer Relationship Specialty Start Date End Date Nikhil Gray NP [address] [facility] MARTITA Francois PCP - General Family Medicine 07/19/24 documented as of this encounter
--- OUTSIDE RECORDS SUMMARY | 2024-08-05 13:42 | XMS_ITS ---
Author Organization [facility] Address [address] [place] [address] Care Team Providers Care Wind Farm Operations Manager Name Role Phone SAÚL BERKOWITZ Primary Care Provider Rahul Suggs Jr, Benjamin Chilel REASON FOR VISIT wt loss,esophageal ca Encounters Encounter Location Date Provider Diagnosis [facility] Inpatient [address] [place], [place] [phone] 06/17/2024 Benjamin Suggs Jr PLAN OF TREATMENT Next Appt Details Provider Name:Benjamin loredo Jr, 09/15/2024 01:55:00 PM, [address], [address], [place], [address],
--- OUTSIDE RECORDS SUMMARY | 2024-08-05 13:42 | XMS_ITS | Patient Health Record ---
Author Organization [facility] Address [address] [place] [address] Care Team Providers Care Greige Mender Name Role Phone Nikhil Nath Primary Care Provider Unav ailable BrandtjerryMartha Unavailable [phone] Reason For Referral No Information Encounters Encounter Location Date Provider Diagnosis [facility] [address] [place] [address] 04/27/2024 Martha Teena Plan Of Treatment No Information Insurance Providers Payer Name Payer Address Payer Phone Subscriber Number Group Number Insured Name Patient Relationship to Insured Coverage Start Date Coverage End Date [facility] [employer] Claims [address] [place] [id number] Tj Almeida Self - patient is the insured
--- OUTSIDE RECORDS SUMMARY | 2024-08-05 13:43 | XMS_ITS ---
Author Organization [facility] Address [address] [place] [address] Care Team Providers Care Physics Technician Name Role Phone Marina CHAU-Nikhil TOVAR Primary Care Provider Unav ailable Martha Dickinson Unavailable [phone] REASON FOR VISIT cx STRING LASTER 05/03 Encounters Encounter Location Date Provider Diagnosis [facility] [address] [place] [address] 04/27/2024 Martha Dickinson Plan Of Treatment No Information Progress Notes * Tj GRANDA ADOB:12/1960 (63 yo M)Acc No.[id number]:04/27/2024 Patient:?Tj Granda :1960???Age:63 Y???Sex:Male Address:[address] [place] [address], [address] * true * Date:? Generated for Osmini malik/Clifford/eTransmitting on:?08/05/2024 01:43 PM EST
--- OUTSIDE RECORDS SUMMARY | 2024-08-05 13:43 | XMS_ITS ---
Author Organization [facility] Address [address] [place] [address] Care Team Providers Care Make Up Arranger Name Role Phone Marina CHAU-BC, Nikhil Primary Care Provider Unav ailable Martha Dickinson Unavailable [phone] REASON FOR VISIT no BUSINESS SYSTEM MANAGER ppwrk Encounters Encounter Location Date Provider Diagnosis [facility] [address] [place] [address] 05/03/2024 Martha Dickinson Plan Of Treatment No Information Progress Notes * KALEE Tj ADOB:12/1960 (63 yo M)Acc No.[id number]:05/03/2024 Progress Notes Patient:?Tj GRANDA Provider:?Martha Dickinson DPM :1960???Age:63 Y???Sex:Male Sergo e:05/03/2024 Address:[address] [place], [place] [id number] Pcp:SHERRI Tanner Subjective: * Chief Complaints: * ???1. no BUSINESS SYSTEM MANAGER ppwrk. * Medical History:? Objective: * Vitals:? Assessment: Plan: * Treatment: * Images: * The named appointment provid er may or may not be the originator of this progress note, and it is not deemed complete until electronically signed by the appointment provider. Sign off status: Pending * Provider:Jorge Dickinson DPM Date:?05/2024 Generated for Mallory gan/Clifford/eTransmitting on:?08/05/2024 01:42 PM EST
[2024-08-05 13:54] LABS: Reflex Lactate? Lactic Acid Added
[2024-08-05 14:06] VITALS: BP 121/84; PULSE 113; RESP 16; O2SAT 97
[2024-08-05] MEDS: iohexoL 350 MG/ML 100 ML INFUS..BTL IV (14:06)
[2024-08-05] MEDS: Lactated Ringers 1,000 ML 999 ML IV ×2 (14:13→15:24)
[2024-08-05 14:14] VITALS: RESP 16
[2024-08-05] MEDS: HYDROmorphone HCl 1 MG/ML SYRINGE IVPUSH (14:14)
[2024-08-05] MEDS: ondansetron HCL 4 MG/2 ML VIAL IVPUSH (14:14)
[2024-08-05 14:41] LABS: ~Lactic Acid-LAB USE ONLY 2.4 mmol/L (0.5-2.0)
--- NOTE | 2024-08-05 15:21 | P.HPHOSP_ITS ---
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 Patient states he has noticed worsening abdominal distention over several weeks. Reports tolerating feeds as usual but intermittently gets nauseous and vomits gastric secretions. Also complaining of epigastric and back pain. Denies fever or chills. In ED CT showed moderate ascites, lipase significantly elevated at 1200. Review of Systems 2 Review of Systems: Yes all other systems are reviewed and are negative [facility] Medical History Wears dentures History of blood transfusion History of GI bleed (~2017) Type 2 diabetes mellitus with hyperglycemia Type 2 diabetes mellitus with diabetic polyneuropathy Hyperlipidemia LDL goal <70 Adenocarcinoma of lower esophagus Hx of splenomegaly Male circumcision Constipation Thrombocytopenia Elevated ferritin Esophageal varices Seizure disorder Alcoholic cirrhosis Hepatitis C Anemia Stroke Hepatic cirrhosis Diabetes Esophagus, carcinoma Family History Father No problems noted. Mother Diabetes mellitus Surgical History S/P percutaneous endoscopic gastrostomy (PEG) tube placement History of surgery on lower extremity (~2003) S/P transjugular intrahepatic portosystemic shunt (~2017) Hx of circumcision Hx of colonoscopy (08/2021) Hx of endoscopy (08/2021) Social History Household Members: Spouse Household Members Other:: Spouse: Antoni Housing: House Are you a primary child care center administrator to a significant other at home: No Do you presently have visiting nurse or other home services: No Alcohol intake: never Patient Tobacco Use Status: Former Tobacco user Tobacco use type: Cigarette Years Smoked: 10 Smoked in Last 30 Days: No e-Cigarette/Vaping Use: Never Used Second Hand Smoke Exposure: No Use of substances other than those prescribed or required for medical reasons: No Advance Directives: Yes Advance Directives on File: Yes Advance Directives Date on File: 01/28/21 service: No Current occupational status: disabled Cognitive needs: No Hearing needs: No Vision needs: No Meds Allergies Allergy/AdvReac Type Severity Reaction Status Date / Time No Known Allergies Allergy Verified 08/05/24 11:18 Active Medications: Current Medications Hydromorphone HCl (Hydromorphone Hcl 0.5 Mg/0.5 Ml Syringe) 0.5 mg IVPUSH Q4H PRN; Protocol PRN Reason: Pain, Severe (Pain Scale 7-10) Lactated Ringer's (Lr) 1,000 mls @ 999 mls/hr IV .Q1H1M KINGA Stop: 08/05/24 16:00 Albumin Human (Kedbumin 25 %) 100 mls @ 100 mls/hr IV Q6H KINGA Stop: 08/05/24 22:14 Home Medications ?Medication ?Instructions ?Recorded ?Confirmed ?Last Taken ?Type lancets 33 gauge #100 ea 08/15/20 07/28/24 Unknown History pen needle, diabetic 31 gauge x #1,200 ea 08/15/20 07/28/24 Unknown History 11/04 ondansetron 8 mg disintegrating 8 mg PO Q8H PRN Nausea And Vomiting 06/16/24 07/28/24 2 Weeks Ago History tablet ~06/10/24 acetaminophen 325 mg tablet 650 mg PO Q6H PRN Pain (Scale 06/24/24 07/28/24 06/19/24 History Score 1-3) magnesium oxide 400 mg feeding tube BIDPC 06/24/24 07/28/24 06/24/24 History pantoprazole 40 mg intravenous 40 mg IV BID 06/24/24 07/28/24 06/19/24 History solution (Protonix) lisinopril 2.5 mg tablet 2.5 mg feeding tube DAILY 08/05/24 Unknown History nadolol 20 mg tablet 20 mg feeding tube DAILY 08/05/24 Unknown History Physical Exam 2 Vital Signs and Narrative: Vital Signs: Last Vital Signs Temp 97.9 F 08/05/24 11:16 Pulse 113 H 08/05/24 14:06 Resp 16 08/05/24 14:14 BP 121/84 08/05/24 14:06 Pulse Ox 97 08/05/24 14:06 O2 Del Method Room Air 08/05/24 14:06 BMI result Body Mass Index 24.4 General: AO X 3, no acute distress Resp: CTA bilateral, no accessory muscles used CVS: S1,S2,RRR GI: soft, non tender, distended Neuro: motor grossly intact, alert Psych: appropriate affect, appropriate insight Results Labs 08/05/24 11:50 08/05/24 11:50 Labs: Laboratory Results - last 24 hr 08/05/24 08/05/24 11:50 14:15 MCV 88.2 MCH 30.4 MCHC 34.4 RDW 14.1 Plt Count 116 L D MPV 10.5 Immature Gran % (Auto) 0.4 Neut % (Auto) 84.2 H Lymph % (Auto) 4.5 L [place] % (Auto) 8.8 Eos % (Auto) 1.6 Baso % (Auto) 0.5 Lymph # (Auto) 0.6 L [place] # (Auto) 1.2 Eos # (Auto) 0.2 Baso # (Auto) 0.1 Abs Immat Gran (auto) 0.05 H Absolute Neuts (auto) 11.5 H Absolute Nucleated RBC 0.000 Nucleated RBC % (auto) 0.0 PT 12.7 H INR 1.1 Anion Gap 13 Estim Creat Clear Calc 108.7 Estimated GFR > 60 Random Glucose 176 H Lactic Acid 2.2 H* Lactic Acid F/U @ 2Hr 2.4 H* Calcium 9.1 Magnesium 2.1 Total Bilirubin 1.3 H AST 69 H ALT 47 H Alkaline Phosphatase 185 H Total Protein 7.4 Albumin 3.2 L Lipase 1129 H Salicylates < 5.0 L Acetaminophen < 3 Ethyl Alcohol < 10 Imaging Radiologist's Impressions: Impressions Abdomen/Pelvis CT 08/05/24 13:53 IMPRESSION: 1. New moderate amount of ascites. Mild wall thickening of the ascending and descending colon made be due to cirrhosis and ascites. 2. Cirrhosis of the liver, status post TIPS placement. Splenomegaly. 3. Marked irregularity and wall thickening of the distal esophagus, consistent with the patient's known adenocarcinoma. 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, on Keytruda, type 2 diabetes, HCV cirrhosis status post tips, seizure disorder presented with abdominal distention nausea and vomiting Acute pancreatitis Possibly due to Keytruda Hold feeds, pain meds, GI eval HCV cirrhosis with ascites Check ultrasound for tips patency Plan for paracentesis diagnostic and therapeutic will give albumin Follow up GI Diabetes Insulin sliding scale Seizure disorder Continue Keppra DVT prophylaxis with Lovenox DNR/DNI Given patient's pancreatitis and need for IV pain meds as well as intervention on his ascites likely require at least 2 midnights inpatient Quality Stroke Does the patient have a stroke diagnosis?: No VTE Prior VTE?: No VTE Risk Level:: Medical - moderate - high VTE Device Contraindication: Treatment Not Indicated VTE Drug Contraindication: N/A - Med Ordered
[2024-08-05 15:26] VITALS: BP 118/78; PULSE 112; RESP 16; TEMP 36.6; O2SAT 96
[2024-08-05] MEDS: cefTRIAXone sodium 1 GM VIAL IVPUSH (16:10)
[2024-08-05 16:17] LABS: Reflex Lactate? 2 Y
--- NOTE | 2024-08-05 16:20 | PHA.MEDREC ---
Addendum entered by Donna Marie RPh 08/05/24 16:55: reviewed by [facility]. Original Note: Pharmacy Consult ? Medication Reconciliation Pharmacy has completed the medication reconciliation. Spoke with patient and patients at bedside. Patients was a little distraught but was able to confirm her husbands medications. The patient was just recently discharged in 06/24 and it looks like Lisinopril, Nadolol and Pantoprazole were Dc'd and the patients confirmed he stopped those. The patient and the were not too sure at this time if he was taking the levetiracetam at this time and when I stated that it was for Seizures or epilepsy and the name brand being Keppra the patient stated he has not had a seizure since his last stroke ; I asked if he was taking any solutions and the patient stated he was but didn't know the name and the patients stated It's name was levetriacta or something like that . The stated her last took his medications yesterday.
[2024-08-05] MEDS: 0.9 % Sodium Chloride Flush 3 ML SYRINGE IVFLUSH (16:39)
[2024-08-05 17:23] LABS: ~Lactic Acid-LAB USE ONLY 2.6 mmol/L (0.5-2.0)
[2024-08-05 17:39] LABS: Cancel Lactic Acid Canceled
[2024-08-05 17:47] LABS: Appearance Urine Clear; Color Urine Yellow; Glucose Urine UA >=1000 mg/dL (Negative); Leukocyte Esterase Urine Negative (Negative); Nitrite Urine Negative (Negative); Specific Gravity - Urine >= 1.030 (1.005-1.025); UMIC TRIGGER UACC YES; Urine Blood Negative (Negative); Urine Ketones 15 mg/dL (Negative); Urine Protein Trace mg/dL (Neg-Trace)
[2024-08-05 17:49] LABS: Bacteria Urine None Seen (None Seen); Hyaline Casts Urine 0-2 /LPF (0-2); RBC Urine 0-2 /HPF (0-2); Squamous Epithelial Cell Urine 0-2 /HPF (0-2); WBC Urine 0-5 /HPF (0-5)
[2024-08-05 17:58] LABS: Amphetamine Screen Urine Not Detected (Not Detect); Barbiturates, Urine Not Detected (Not Detect); Benzodiazepines Screen Urine Not Detected (Not Detect); Buprenorphine Scr Not Detected (Not Detect); Cannabinoid Screen Urine Not Detected (Not Detect); Cocaine Screen Urine Not Detected (Not Detect); Fentanyl, urine Not Detected (Not Detect); Methadone Screen, Urine Not Detected (Not Detect); Opiate Screen Urine Not Detected (Not Detect); Oxycodone Screen Urine Not Detected (Not Detect); Phencyclidine Screen Urine Not Detected (Not Detect)
[2024-08-05 18:07] LABS: Glucose, Whole Blood 121 mg/dL (60-115)
[2024-08-05 20:37] VITALS: RESP 18
[2024-08-05] MEDS: HYDROmorphone HCl 0.5 MG/0.5 ML SYRINGE IVPUSH (20:37)
[2024-08-05 20:49] LABS: Glucose, Whole Blood 109 mg/dL (60-115)
--- NOTE | 2024-08-05 20:51 | PC.NURSE ---
pt medicated per aug for 10/10 abdominal pain. pharmacy contacted for pt G-tube medications.
[2024-08-05 21:09] VITALS: BP 114/72; PULSE 112; RESP 16; TEMP 37.6; O2SAT 94
[2024-08-05] MEDS: Atorvastatin Calcium 10 MG TABLET G-TUBE (21:40)
[2024-08-05] MEDS: levETIRAcetam Oral Soln 500 MG/5 ML 250 MG G-TUBE (21:40)
[2024-08-06] VITALS (8 sets, daily range): BP systolic 110–125; BP diastolic 65–76; PULSE 98–110; RESP 13–20; TEMP 36.3–37.1; O2SAT 94–99
[2024-08-06] MEDS: HYDROmorphone HCl 0.5 MG/0.5 ML SYRINGE IVPUSH ×5 (02:32→22:39)
--- NOTE | 2024-08-06 02:39 | PC.NURSE ---
pt reporting 10/10 abdominal pain, pt medicated per mar at this time.
--- NOTE | 2024-08-06 06:43 | PC.NURSE ---
pt reporting increased pain, 7/10 in the abdomen and back at this time, pt medicated per aug.
[2024-08-06 07:22] LABS: Glucose, Whole Blood 130 mg/dL (60-115)
--- NOTE | 2024-08-06 09:24 | PC.NURSE ---
assumed care of patient at 0700, patient is awake, alert, oriented x3. patient appears to be comfortable in bed, resp even and unlabored, skin dry and intact. patient medicated by prev shift RN, patient states his pain is 7/10 but states he is feeling a little better. VSS
--- NOTE | 2024-08-06 09:43 | HO.PM.IMPN ---
Subjective Subjective Date of Service: 08/06/24 Interval History: epigastric pain Physical Exam Vital Signs: Vital Signs: Last Vital Signs Temp 98.5 F 08/06/24 07:17 Pulse 108 H 08/06/24 07:17 Resp 20 08/06/24 07:17 BP 110/76 08/06/24 07:17 Pulse Ox 94 08/06/24 07:17 O2 Del Method Room Air 08/06/24 07:17 BMI result Body Mass Index 24.4 General: AO X 3, no acute distress Resp: CTA bilateral, no accessory muscles used CVS: S1,S2,RRR GI: soft, non tender, distended but not tight Neuro: motor grossly intact, alert Psych: appropriate affect, appropriate insight Objective Data Active Medications Acetaminophen (Acetaminophen 325 Mg Tablet) 650 mg PO Q6H PRN PRN Reason: Pain, Mild 1-3,fever,headache Atorvastatin Calcium (Atorvastatin Calcium 10 Mg Tablet) 10 mg G-TUBE BEDTIME [facility] Last Admin: 08/05/24 21:40 Dose: 10 mg Documented By: LESLIE Calcium Carbonate (Calcium Carbonate 750 Mg Tab.Chew) 750 mg PO Q4H PRN PRN Reason: Heartburn Dextrose (Dextrose 50 % 25 Gm/50 Ml Syringe) 25 gm IVPUSH Q15M PRN; Protocol PRN Reason: per Hypoglycemia Standing Ord. Enoxaparin Sodium (Enoxaparin Sodium 40 Mg/0.4 Ml Syringe) 40 mg SUBCUT Q24H [facility] Glucose (Glucose Gel 15 Gm Gel..Gram.) 15 gm PO Q15M PRN; Protocol PRN Reason: per Hypoglycemia Standing Ord. Hydromorphone HCl (Hydromorphone Hcl 0.5 Mg/0.5 Ml Syringe) 0.5 mg IVPUSH Q4H PRN; Protocol PRN Reason: Pain, Severe (Pain Scale 7-10) Last Admin: 08/06/24 06:43 Dose: 0.5 mg Documented By: LESLIE Insulin Human Lispro (Insulin Lispro 100 Unit/Ml 3 Ml Vial) 0 unit SUBCUT QIDACHS [facility]; Protocol Last Admin: 08/06/24 07:21 Dose: Not Given Documented By: VENU Non-Admin Reason: No Insulin Coverage Levetiracetam (Levetiracetam Oral Soln 500 Mg/5 Ml) 250 mg G-TUBE BID [facility] Last Admin: 08/05/24 21:40 Dose: 250 mg Documented By: LESLIE Magnesium Hydroxide (Milk Of Magnesia 30 Ml Oral.Susp) 30 ml PO DAILY PRN PRN Reason: Constipation Melatonin (Melatonin 3 Mg Tablet) 6 mg PO BEDTIME PRN PRN Reason: Insomnia Non-Formulary Medication (Repaglinide) 0.5 mg G-TUBE TID [facility] Sodium Chloride (0.9 % Sodium Chloride Flush 3 Ml Syringe) 3 ml IVFLUSH QSHIFT [facility] Last Admin: 08/06/24 07:46 Dose: Not Given Documented By: VENU Non-Admin Reason: See Note Vitamin D (Cholecalciferol (Vitamin D3) 25 Mcg Tablet) 25 mcg G-TUBE DAILY [facility] Labs 08/05/24 11:50 08/05/24 11:50 Labs: Laboratory Results - last 24 hr 08/05/24 08/05/24 08/05/24 11:50 14:15 16:47 MCV 88.2 MCH 30.4 MCHC 34.4 RDW 14.1 Plt Count 116 L D MPV 10.5 Immature Gran % (Auto) 0.4 Neut % (Auto) 84.2 H Lymph % (Auto) 4.5 L [place] % (Auto) 8.8 Eos % (Auto) 1.6 Baso % (Auto) 0.5 Lymph # (Auto) 0.6 L [place] # (Auto) 1.2 Eos # (Auto) 0.2 Baso # (Auto) 0.1 Abs Immat Gran (auto) 0.05 H Absolute Neuts (auto) 11.5 H Absolute Nucleated RBC 0.000 Nucleated RBC % (auto) 0.0 PT 12.7 H INR 1.1 Anion Gap 13 Estim Creat Clear Calc 108.7 Estimated GFR > 60 POC Glucose Random Glucose 176 H Lactic Acid 2.2 H* Lactic Acid F/U @ 2Hr 2.4 H* Lactic Acid F/U @ 4Hr 2.6 H* Calcium 9.1 Magnesium 2.1 Total Bilirubin 1.3 H AST 69 H ALT 47 H Alkaline Phosphatase 185 H Total Protein 7.4 Albumin 3.2 L Lipase 1129 H Urine Color Urine Appearance Urine pH Ur Specific Protem Urine Protein Urine Glucose (UA) Urine Ketones Urine Blood Urine Nitrite Ur Leukocyte Esterase Urine RBC Urine WBC Ur Squamous Epith Cells Urine Bacteria Hyaline Casts Salicylates < 5.0 L Urine Opiates Screen Ur Buprenorphine Scrn Ur Oxycodone Screen Urine Methadone Screen Urine Fentanyl Screen Acetaminophen < 3 Ur Barbiturates Screen Ur Phencyclidine Scrn Ur Amphetamines Screen U Benzodiazepines Scrn Urine Cocaine Screen U Marijuana (THC) Screen Ethyl Alcohol < 10 08/05/24 08/05/24 08/05/24 17:39 17:59 20:39 MCV MCH MCHC RDW Plt Count MPV Immature Gran % (Auto) Neut % (Auto) Lymph % (Auto) [place] % (Auto) Eos % (Auto) Baso % (Auto) Lymph # (Auto) [place] # (Auto) Eos # (Auto) Baso # (Auto) Abs Immat Gran (auto) Absolute Neuts (auto) Absolute Nucleated RBC Nucleated RBC % (auto) PT INR Anion Gap Estim Creat Clear Calc Estimated GFR POC Glucose 121 H 109 Random Glucose Lactic Acid Lactic Acid F/U @ 2Hr Lactic Acid F/U @ 4Hr Calcium Magnesium Total Bilirubin AST ALT Alkaline Phosphatase Total Protein Albumin Lipase Urine Color Yellow Urine Appearance Clear Urine pH 6.0 Ur Specific Protem >= 1.030 H Urine Protein Trace Urine Glucose (UA) >=1000 H Urine Ketones 15 Urine Blood Negative Urine Nitrite Negative Ur Leukocyte Esterase Negative Urine RBC 0-2 Urine WBC 0-5 Ur Squamous Epith Cells 0-2 Urine Bacteria None Seen Hyaline Casts 0-2 Salicylates Urine Opiates Screen Not Detected Ur Buprenorphine Scrn Not Detected Ur Oxycodone Screen Not Detected Urine Methadone Screen Not Detected Urine Fentanyl Screen Not Detected Acetaminophen Ur Barbiturates Screen Not Detected Ur Phencyclidine Scrn Not Detected Ur Amphetamines Screen Not Detected U Benzodiazepines Scrn Not Detected Urine Cocaine Screen Not Detected U Marijuana (THC) Screen Not Detected Ethyl Alcohol 08/06/24 07:15 MCV MCH MCHC RDW Plt Count MPV Immature Gran % (Auto) Neut % (Auto) Lymph % (Auto) [place] % (Auto) Eos % (Auto) Baso % (Auto) Lymph # (Auto) [place] # (Auto) Eos # (Auto) Baso # (Auto) Abs Immat Gran (auto) Absolute Neuts (auto) Absolute Nucleated RBC Nucleated RBC % (auto) PT INR Anion Gap Estim Creat Clear Calc Estimated GFR POC Glucose 130 H Random Glucose Lactic Acid Lactic Acid F/U @ 2Hr Lactic Acid F/U @ 4Hr Calcium Magnesium Total Bilirubin AST ALT Alkaline Phosphatase Total Protein Albumin Lipase Urine Color Urine Appearance Urine pH Ur Specific Protem Urine Protein Urine Glucose (UA) Urine Ketones Urine Blood Urine Nitrite Ur Leukocyte Esterase Urine RBC Urine WBC Ur Squamous Epith Cells Urine Bacteria Hyaline Casts Salicylates Urine Opiates Screen Ur Buprenorphine Scrn Ur Oxycodone Screen Urine Methadone Screen Urine Fentanyl Screen Acetaminophen Ur Barbiturates Screen Ur Phencyclidine Scrn Ur Amphetamines Screen U Benzodiazepines Scrn Urine Cocaine Screen U Marijuana (THC) Screen Ethyl Alcohol 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, on Keytruda, type 2 diabetes, HCV cirrhosis status post tips, seizure disorder presented with abdominal distention nausea and vomiting Acute pancreatitis Possibly due to Keytruda Hold feeds, pain meds, GI eval HCV cirrhosis with ascites Check ultrasound for tips patency Plan for paracentesis diagnostic and therapeutic will give albumin with paracentesis Follow up GI Ultrasound was suspicion for tips stenosis Diabetes Insulin sliding scale Seizure disorder Continue Keppra DVT prophylaxis with Lovenox DNR/DNI reason for continued hospitalization: Ongoing pain Quality Stroke Does the patient have a stroke diagnosis?: No VTE Prior VTE?: No VTE Risk Level:: Medical - moderate - high VTE Device Contraindication: Treatment Not Indicated VTE Drug Contraindication: N/A - Med Ordered
[2024-08-06] MEDS: Cholecalciferol (Vitamin D3) 25 MCG TABLET G-TUBE (10:13)
[2024-08-06] MEDS: levETIRAcetam Oral Soln 500 MG/5 ML 250 MG G-TUBE ×2 (10:13→20:49)
[2024-08-06] MEDS: Enoxaparin Sodium 40 MG/0.4 ML SYRINGE SUBCUT (10:21)
[2024-08-06 12:32] LABS: Glucose, Whole Blood 139 mg/dL (60-115)
--- NOTE | 2024-08-06 13:52 | MHC.CM.PN ---
PT LIVES WITH HAS [facility] , WILL TRANSPORT PY HOME DC PLAN HOME W/SERVICES
[2024-08-06 17:22] LABS: Glucose, Whole Blood 122 mg/dL (60-115)
--- NOTE | 2024-08-06 17:29 | PC.NURSE ---
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
[2024-08-06 20:05] LABS: Glucose, Whole Blood 117 mg/dL (60-115)
[2024-08-06] MEDS: Atorvastatin Calcium 10 MG TABLET G-TUBE (20:50)
[2024-08-06] MEDS: 0.9 % Sodium Chloride Flush 3 ML SYRINGE IVFLUSH (20:50)
[2024-08-07 03:17] VITALS: BP 115/71; PULSE 100; RESP 17; TEMP 36.2; O2SAT 93
[2024-08-07] MEDS: HYDROmorphone HCl 0.5 MG/0.5 ML SYRINGE IVPUSH ×5 (03:24→20:23)
[2024-08-07 07:11] VITALS: BP 121/75; PULSE 99; RESP 16; TEMP 36.8; O2SAT 94
[2024-08-07 07:21] LABS: Glucose, Whole Blood 114 mg/dL (60-115)
[2024-08-07] MEDS: 0.9 % Sodium Chloride Flush 3 ML SYRINGE IVFLUSH ×3 (07:35→20:24)
[2024-08-07] MEDS: Cholecalciferol (Vitamin D3) 25 MCG TABLET G-TUBE (08:41)
[2024-08-07] MEDS: levETIRAcetam Oral Soln 500 MG/5 ML 250 MG G-TUBE ×2 (08:41→20:24)
--- NOTE | 2024-08-07 09:50 | HO.PM.IMPN ---
Subjective Subjective Date of Service: 08/07/24 Interval History: Still with pain but improving Physical Exam Vital Signs: Vital Signs: Last Vital Signs Temp 98.3 F 08/07/24 07:11 Pulse 99 08/07/24 07:11 Resp 16 08/07/24 07:11 BP 121/75 08/07/24 07:11 Pulse Ox 94 08/07/24 07:11 O2 Del Method Room Air 08/07/24 07:11 BMI result Body Mass Index 24.4 General: AO X 3, no acute distress Resp: CTA bilateral, no accessory muscles used CVS: S1,S2,RRR GI: soft, non tender, distended but not tight Neuro: motor grossly intact, alert Psych: appropriate affect, appropriate insight Objective Data Active Medications Acetaminophen (Acetaminophen 325 Mg Tablet) 650 mg PO Q6H PRN PRN Reason: Pain, Mild 1-3,fever,headache Atorvastatin Calcium (Atorvastatin Calcium 10 Mg Tablet) 10 mg G-TUBE BEDTIME [facility] Last Admin: 08/06/24 20:50 Dose: 10 mg Documented By: JERI Calcium Carbonate (Calcium Carbonate 750 Mg Tab.Chew) 750 mg PO Q4H PRN PRN Reason: Heartburn Dextrose (Dextrose 50 % 25 Gm/50 Ml Syringe) 25 gm IVPUSH Q15M PRN; Protocol PRN Reason: per Hypoglycemia Standing Ord. Enoxaparin Sodium (Enoxaparin Sodium 40 Mg/0.4 Ml Syringe) 40 mg SUBCUT Q24H [facility] Last Admin: 08/06/24 10:21 Dose: 40 mg Documented By: VERITO Glucose (Glucose Gel 15 Gm Gel..Gram.) 15 gm PO Q15M PRN; Protocol PRN Reason: per Hypoglycemia Standing Ord. Hydromorphone HCl (Hydromorphone Hcl 0.5 Mg/0.5 Ml Syringe) 0.5 mg IVPUSH Q4H PRN; Protocol PRN Reason: Pain, Severe (Pain Scale 7-10) Last Admin: 08/07/24 07:34 Dose: 0.5 mg Documented By: DANDY Insulin Human Lispro (Insulin Lispro 100 Unit/Ml 3 Ml Vial) 0 unit SUBCUT QIDACHS [facility]; Protocol Last Admin: 08/07/24 07:36 Dose: Not Given Documented By: DANDY Non-Admin Reason: No Insulin Coverage Levetiracetam (Levetiracetam Oral Soln 500 Mg/5 Ml) 250 mg G-TUBE BID [facility] Last Admin: 08/07/24 08:41 Dose: 250 mg Documented By: DANDY Magnesium Hydroxide (Milk Of Magnesia 30 Ml Oral.Susp) 30 ml PO DAILY PRN PRN Reason: Constipation Melatonin (Melatonin 3 Mg Tablet) 6 mg PO BEDTIME PRN PRN Reason: Insomnia Non-Formulary Medication (Repaglinide) 0.5 mg G-TUBE TID [facility] Sodium Chloride (0.9 % Sodium Chloride Flush 3 Ml Syringe) 3 ml IVFLUSH QSHIFT [facility] Last Admin: 08/07/24 07:35 Dose: 3 ml Documented By: DANDY Vitamin D (Cholecalciferol (Vitamin D3) 25 Mcg Tablet) 25 mcg G-TUBE DAILY [facility] Last Admin: 08/07/24 08:41 Dose: 25 mcg Documented By: DANDY Labs 08/05/24 11:50 08/05/24 11:50 Labs: Laboratory Results - last 24 hr 08/06/24 08/06/24 08/06/24 12:28 17:17 20:00 POC Glucose 139 H 122 H 117 H 08/07/24 07:15 POC Glucose 114 Microbiology Microbiology Results: Microbiology 08/05/24 15:55 Blood Culture - Preliminary Blood - Venous No growth after 24 hours. 08/05/24 15:47 Blood Culture - Preliminary Blood - Venous No growth after 24 hours. 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, on Keytruda, type 2 diabetes, HCV cirrhosis status post tips, seizure disorder presented with abdominal distention nausea and vomiting Acute pancreatitis Possibly due to Keytruda We will start with slow continuous feeds, pain meds, GI eval HCV cirrhosis with ascites Plan for paracentesis diagnostic and therapeutic will give albumin with paracentesis Follow up GI Ultrasound was suspicion for tips stenosis Diabetes Insulin sliding scale Seizure disorder Continue Keppra DVT prophylaxis with Lovenox DNR/DNI reason for continued hospitalization: Ongoing pain Quality Stroke Does the patient have a stroke diagnosis?: No VTE Prior VTE?: No VTE Risk Level:: Medical - moderate - high VTE Device Contraindication: Treatment Not Indicated VTE Drug Contraindication: N/A - Med Ordered
[2024-08-07] MEDS: Enoxaparin Sodium 40 MG/0.4 ML SYRINGE SUBCUT (11:30)
[2024-08-07 12:02] LABS: Glucose, Whole Blood 135 mg/dL (60-115)
[2024-08-07 16:00] VITALS: BP 124/81; PULSE 94; RESP 16; TEMP 36.9; O2SAT 94
[2024-08-07 16:36] LABS: Glucose, Whole Blood 136 mg/dL (60-115)
[2024-08-07 19:45] VITALS: BP 122/72; PULSE 99; RESP 18; TEMP 37.2; O2SAT 95
[2024-08-07] MEDS: Atorvastatin Calcium 10 MG TABLET G-TUBE (20:24)
[2024-08-07 20:31] LABS: Glucose, Whole Blood 138 mg/dL (60-115)
[2024-08-07] MEDS: [UNRECOGNIZED DRUG - OTHER] 1 EACH G-TUBE (20:35)
[2024-08-08] MEDS: HYDROmorphone HCl 0.5 MG/0.5 ML SYRINGE IVPUSH ×5 (00:38→20:15)
[2024-08-08 04:00] VITALS: BP 119/77; PULSE 108; RESP 18; TEMP 36.2; O2SAT 93
[2024-08-08 07:40] VITALS: BP 118/73; PULSE 101; RESP 18; TEMP 36.8; O2SAT 94
[2024-08-08 07:46] LABS: Glucose, Whole Blood 167 mg/dL (60-115)
[2024-08-08] MEDS: [UNRECOGNIZED DRUG - OTHER] 1 EACH G-TUBE ×3 (08:27→20:14)
[2024-08-08] MEDS: Cholecalciferol (Vitamin D3) 25 MCG TABLET G-TUBE (08:27)
[2024-08-08] MEDS: levETIRAcetam Oral Soln 500 MG/5 ML 250 MG G-TUBE ×2 (08:27→20:14)
[2024-08-08] MEDS: Insulin Lispro 100 UNIT/ML 3 ML VIAL SUBCUT ×4 (08:29→20:14)
[2024-08-08] MEDS: 0.9 % Sodium Chloride Flush 3 ML SYRINGE IVFLUSH ×3 (08:33→20:14)
--- NOTE | 2024-08-08 08:48 | P.PNIM_ITS ---
Subjective Subjective Date of Service: 08/08/24 Interval History: tolerating slow rate feeds Physical Exam 2 Vital Signs: Vital Signs: Last Vital Signs Temp 98.2 F 08/08/24 07:40 Pulse 101 H 08/08/24 07:40 Resp 18 08/08/24 07:40 BP 118/73 08/08/24 07:40 Pulse Ox 94 08/08/24 07:40 O2 Del Method Room Air 08/08/24 07:40 BMI result Body Mass Index 24.4 General: AO X 3, no acute distress Resp: CTA bilateral, no accessory muscles used CVS: S1,S2,RRR GI: soft, non tender, distended but not tight Neuro: motor grossly intact, alert Psych: appropriate affect, appropriate insight Objective Data Active Medications Acetaminophen (Acetaminophen 325 Mg Tablet) 650 mg PO Q6H PRN PRN Reason: Pain, Mild 1-3,fever,headache Atorvastatin Calcium (Atorvastatin Calcium 10 Mg Tablet) 10 mg G-TUBE BEDTIME [facility] Last Admin: 08/07/24 20:24 Dose: 10 mg Documented By: LYNETTE Calcium Carbonate (Calcium Carbonate 750 Mg Tab.Chew) 750 mg PO Q4H PRN PRN Reason: Heartburn Dextrose (Dextrose 50 % 25 Gm/50 Ml Syringe) 25 gm IVPUSH Q15M PRN; Protocol PRN Reason: per Hypoglycemia Standing Ord. Enoxaparin Sodium (Enoxaparin Sodium 40 Mg/0.4 Ml Syringe) 40 mg SUBCUT Q24H [facility] Last Admin: 08/07/24 11:30 Dose: 40 mg Documented By: DANDY Glucose (Glucose Gel 15 Gm Gel..Gram.) 15 gm PO Q15M PRN; Protocol PRN Reason: per Hypoglycemia Standing Ord. Hydromorphone HCl (Hydromorphone Hcl 0.5 Mg/0.5 Ml Syringe) 0.5 mg IVPUSH Q4H PRN; Protocol PRN Reason: Pain, Severe (Pain Scale 7-10) Last Admin: 08/08/24 04:45 Dose: 0.5 mg Documented By: LYNETTE Insulin Human Lispro (Insulin Lispro 100 Unit/Ml 3 Ml Vial) 0 unit SUBCUT QIDACHS [facility]; Protocol Last Admin: 08/08/24 08:29 Dose: 2 unit Documented By: DANDY Levetiracetam (Levetiracetam Oral Soln 500 Mg/5 Ml) 250 mg G-TUBE BID [facility] Last Admin: 08/08/24 08:27 Dose: 250 mg Documented By: DANDY Magnesium Hydroxide (Milk Of Magnesia 30 Ml Oral.Susp) 30 ml PO DAILY PRN PRN Reason: Constipation Melatonin (Melatonin 3 Mg Tablet) 6 mg PO BEDTIME PRN PRN Reason: Insomnia Pt Owned Med ( Repaglinide 0.5mg Tablet) 1 each G-TUBE TID [facility] Last Admin: 08/08/24 08:27 Dose: 1 each Documented By: DANDY Sodium Chloride (0.9 % Sodium Chloride Flush 3 Ml Syringe) 3 ml IVFLUSH QSHIFT [facility] Last Admin: 08/08/24 08:33 Dose: 3 ml Documented By: DANDY Vitamin D (Cholecalciferol (Vitamin D3) 25 Mcg Tablet) 25 mcg G-TUBE DAILY [facility] Last Admin: 08/08/24 08:27 Dose: 25 mcg Documented By: DANDY Labs 08/05/24 11:50 08/05/24 11:50 Labs: Laboratory Results - last 24 hr 08/07/24 08/07/24 08/07/24 11:51 16:21 20:27 POC Glucose 135 H 136 H 138 H 08/08/24 07:38 POC Glucose 167 H Microbiology Microbiology Results: Microbiology 08/05/24 15:55 Blood Culture - Preliminary Blood - Venous No growth after 48 hours. 08/05/24 15:47 Blood Culture - Preliminary Blood - Venous No growth after 48 hours. 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, on Keytruda, type 2 diabetes, HCV cirrhosis status post tips, seizure disorder presented with abdominal distention nausea and vomiting Acute pancreatitis Possibly due to Keytruda tolerating slow rate feeds, will challenge with home regimen of bolus glucerna HCV cirrhosis with ascites Plan for paracentesis diagnostic and therapeutic will give albumin with paracentesis Follow up GI Ultrasound was suspicious for tips stenosis Diabetes Insulin sliding scale Seizure disorder Continue Keppra DVT prophylaxis with Lovenox DNR/DNI reason for continued hospitalization: awaiting tolerance of full solids Quality Stroke Does the patient have a stroke diagnosis?: No VTE Prior VTE?: No VTE Risk Level:: Medical - moderate - high VTE Device Contraindication: Treatment Not Indicated VTE Drug Contraindication: N/A - Med Ordered
[2024-08-08] MEDS: Enoxaparin Sodium 40 MG/0.4 ML SYRINGE SUBCUT (09:18)
[2024-08-08] MEDS: ondansetron HCL 4 MG/2 ML VIAL IVPUSH (09:43)
[2024-08-08 11:14] LABS: Glucose, Whole Blood 159 mg/dL (60-115)
[2024-08-08 13:15] VITALS: BMI 24.4
--- NOTE | 2024-08-08 13:38 | MHC.CLN ---
NUTRITION PATIENT WITH PANCREATITIS AND TOLERATING G TUBE FEEDING. TUBE FEED ORDER CHANGED PER MD TO BOLUS GLUCERNA. GLUCERNA 1.0 BOLUS 240 ML 6 TIMES DAILY PLUS FREE WATER FLUSHES 240 ML Q 4 HOURS PROVIDES: 1422 KCALS (20 KCALS/KG), 59.4 G PROTEIN (.84 G/KG), 2634 ML TOTAL FREE WATER FROM FORMULA AND FLUSHES (37 ML/KG). FOLLOW FOR TUBE FEED TOLERANCE. CURRENT ORDER DOES NOT MEET ESTIMATED ENERGY OR PROTEIN NEEDS. MONITOR OR TOLERANCE AND INCREASE ABLE. SEE CLINICAL NUTRITION ASSESSMENT 08/08/24.
[2024-08-08 15:43] VITALS: BP 117/72; PULSE 99; RESP 16; TEMP 36.8; O2SAT 96
[2024-08-08 15:54] LABS: Glucose, Whole Blood 198 mg/dL (60-115)
[2024-08-08 19:53] VITALS: BP 127/78; PULSE 112; RESP 16; TEMP 37.7; O2SAT 95
[2024-08-08 20:06] LABS: Glucose, Whole Blood 224 mg/dL (60-115)
[2024-08-08] MEDS: Atorvastatin Calcium 10 MG TABLET G-TUBE (20:14)
[2024-08-09] MEDS: HYDROmorphone HCl 0.5 MG/0.5 ML SYRINGE IVPUSH ×7 (00:39→23:31)
[2024-08-09 04:00] VITALS: BP 126/74; PULSE 114; RESP 16; TEMP 36; O2SAT 95
[2024-08-09] MEDS: ondansetron HCL 4 MG/2 ML VIAL IVPUSH ×3 (04:50→23:35)
[2024-08-09 07:05] LABS: Hematocrit 40.4 % (42.0-52.0); Hemoglobin 13.5 g/dl (14.0-18.0); Mean Corpuscular HGB Conc 33.4 g/dl (31.0-36.0); Mean Corpuscular Hemoglobin 30.1 pg (27.0-33.0); Mean Corpuscular Volume 90.2 fL (80.0-98.0); Mean Platelet Volume 9.6 fL (9.4-12.4); Platelet Count 105 X10*3/uL (160-400); Red Blood Count 4.48 X10*6/uL (4.60-5.80)
[2024-08-09 07:20] LABS: Alanine Aminotransferase 25 U/L (0-40); Albumin Level 2.7 g/dL (3.5-5.0); Alkaline Phosphatase 134 U/L (39-117); Anion Gap 13 (12-20); Aspartate Amino Transferase 45 U/L (5-37); Bilirubin Direct 0.5 mg/dL (0.0-0.5); Bilirubin Total 0.8 mg/dL (0.0-1.0); Blood Urea Nitrogen 21 mg/dL (9-16); Calcium 8.2 mg/dL (8.4-10.2); Carbon Dioxide 25 mmol/L (22-29); Chloride 109 mmol/L (96-108); Creatinine Clr Calc Pharmacy 117.8; Estimated Glomerular Filt Rate > 60; Glucose Random 207 mg/dL (60-115); Magnesium 1.8 mg/dL (1.6-2.6); Potassium 3.8 mmol/L (3.3-5.1); Sodium 143 mmol/L (135-145); Total Protein 6.4 g/dL (6.5-8.0)
[2024-08-09 07:34] VITALS: BP 117/78; PULSE 115; RESP 16; TEMP 37; O2SAT 93
[2024-08-09 07:39] LABS: Glucose, Whole Blood 224 mg/dL (60-115)
[2024-08-09] MEDS: Insulin Lispro 100 UNIT/ML 3 ML VIAL SUBCUT ×4 (07:58→19:39)
[2024-08-09] MEDS: 0.9 % Sodium Chloride Flush 3 ML SYRINGE IVFLUSH ×3 (07:59→19:40)
[2024-08-09] MEDS: levETIRAcetam Oral Soln 500 MG/5 ML 250 MG G-TUBE ×2 (08:03→19:40)
[2024-08-09] MEDS: [UNRECOGNIZED DRUG - OTHER] 1 EACH G-TUBE ×3 (08:04→19:39)
[2024-08-09] MEDS: Cholecalciferol (Vitamin D3) 25 MCG TABLET G-TUBE (08:04)
--- NOTE | 2024-08-09 08:23 | HO.PM.IMPN ---
Subjective Subjective Date of Service: 08/09/24 Interval History: A bit of nausea with bolus feeds but overall tolerating Physical Exam Vital Signs: Vital Signs: Last Vital Signs Temp 98.6 F 08/09/24 07:34 Pulse 115 H 08/09/24 07:34 Resp 16 08/09/24 07:34 BP 117/78 08/09/24 07:34 Pulse Ox 93 08/09/24 07:34 O2 Del Method Room Air 08/09/24 07:34 BMI result Body Mass Index 24.4 General: AO X 3, no acute distress Resp: CTA bilateral, no accessory muscles used CVS: S1,S2,RRR GI: soft, non tender, distended but not tight Neuro: motor grossly intact, alert Psych: appropriate affect, appropriate insight Objective Data Active Medications Acetaminophen (Acetaminophen 325 Mg Tablet) 650 mg PO Q6H PRN PRN Reason: Pain, Mild 1-3,fever,headache Atorvastatin Calcium (Atorvastatin Calcium 10 Mg Tablet) 10 mg G-TUBE BEDTIME [facility] Last Admin: 08/08/24 20:14 Dose: 10 mg Documented By: LYNETTE Calcium Carbonate (Calcium Carbonate 750 Mg Tab.Chew) 750 mg PO Q4H PRN PRN Reason: Heartburn Dextrose (Dextrose 50 % 25 Gm/50 Ml Syringe) 25 gm IVPUSH Q15M PRN; Protocol PRN Reason: per Hypoglycemia Standing Ord. Enoxaparin Sodium (Enoxaparin Sodium 40 Mg/0.4 Ml Syringe) 40 mg SUBCUT Q24H [facility] Last Admin: 08/08/24 09:18 Dose: 40 mg Documented By: DANDY Glucose (Glucose Gel 15 Gm Gel..Gram.) 15 gm PO Q15M PRN; Protocol PRN Reason: per Hypoglycemia Standing Ord. Hydromorphone HCl (Hydromorphone Hcl 0.5 Mg/0.5 Ml Syringe) 0.5 mg IVPUSH Q4H PRN; Protocol PRN Reason: Pain, Severe (Pain Scale 7-10) Last Admin: 08/09/24 04:51 Dose: 0.5 mg Documented By: LYNETTE Insulin Human Lispro (Insulin Lispro 100 Unit/Ml 3 Ml Vial) 0 unit SUBCUT QIDACHS [facility]; Protocol Last Admin: 08/09/24 07:58 Dose: 4 unit Documented By: RAMIREZ Levetiracetam (Levetiracetam Oral Soln 500 Mg/5 Ml) 250 mg G-TUBE BID [facility] Last Admin: 08/09/24 08:03 Dose: 250 mg Documented By: RAMIREZ Magnesium Hydroxide (Milk Of Magnesia 30 Ml Oral.Susp) 30 ml PO DAILY PRN PRN Reason: Constipation Melatonin (Melatonin 3 Mg Tablet) 6 mg PO BEDTIME PRN PRN Reason: Insomnia Pt Owned Med ( Repaglinide 0.5mg Tablet) 1 each G-TUBE TID [facility] Last Admin: 08/09/24 08:04 Dose: 1 each Documented By: RAMIREZ Ondansetron HCl (Ondansetron Hcl 4 Mg/2 Ml Vial) 4 mg IVPUSH Q6H PRN PRN Reason: Nausea Last Admin: 08/09/24 04:50 Dose: 4 mg Documented By: LYNETTE Sodium Chloride (0.9 % Sodium Chloride Flush 3 Ml Syringe) 3 ml IVFLUSH QSHIFT [facility] Last Admin: 08/09/24 07:59 Dose: 3 ml Documented By: RAMIREZ Vitamin D (Cholecalciferol (Vitamin D3) 25 Mcg Tablet) 25 mcg G-TUBE DAILY [facility] Last Admin: 08/09/24 08:04 Dose: 25 mcg Documented By: RAMIREZ Labs 08/09/24 06:59 08/09/24 06:59 Labs: Laboratory Results - last 24 hr 08/08/24 08/08/24 08/08/24 11:06 15:50 20:02 MCV MCH MCHC RDW Plt Count MPV Absolute Nucleated RBC Nucleated RBC % (auto) Anion Gap Estim Creat Clear Calc Estimated GFR POC Glucose 159 H 198 H 224 H Random Glucose Calcium Magnesium Total Bilirubin Direct Bilirubin AST ALT Alkaline Phosphatase Total Protein Albumin 08/09/24 08/09/24 06:59 07:32 MCV 90.2 MCH 30.1 MCHC 33.4 RDW 14.0 Plt Count 105 L MPV 9.6 Absolute Nucleated RBC 0.000 Nucleated RBC % (auto) 0.0 Anion Gap 13 Estim Creat Clear Calc 117.8 Estimated GFR > 60 POC Glucose 224 H Random Glucose 207 H Calcium 8.2 L D Magnesium 1.8 Total Bilirubin 0.8 Direct Bilirubin 0.5 AST 45 H ALT 25 Alkaline Phosphatase 134 H Total Protein 6.4 L Albumin 2.7 L 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, on Keytruda, type 2 diabetes, HCV cirrhosis status post tips, seizure disorder presented with abdominal distention nausea and vomiting Acute pancreatitis Possibly due to Keytruda tolerated slow rate feeds, changed to bolus feeds and mostly tolerating with some nausea HCV cirrhosis with ascites Plan for paracentesis diagnostic and therapeutic will give albumin with paracentesis Follow up GI Ultrasound was suspicious for tips stenosis Outpatient follow-up Diabetes Insulin sliding scale Seizure disorder Continue Keppra DVT prophylaxis with Lovenox DNR/DNI reason for continued hospitalization: awaiting tolerance of full solids Quality Stroke Does the patient have a stroke diagnosis?: No VTE Prior VTE?: No VTE Risk Level:: Medical - moderate - high VTE Device Contraindication: Treatment Not Indicated VTE Drug Contraindication: N/A - Med Ordered
[2024-08-09] MEDS: Enoxaparin Sodium 40 MG/0.4 ML SYRINGE SUBCUT (09:18)
[2024-08-09 11:33] LABS: Glucose, Whole Blood 219 mg/dL (60-115)
--- NOTE | 2024-08-09 15:34 | PM.EVENT ---
Event Note Date of Service: 08/09/24 Event Note: I have called radiology and asked them to do the paracentesis today. Time Spent With Patient Time: Total time managing care of this patient today ____ minutes.
--- NOTE | 2024-08-09 15:44 | P.CNHO_ITS ---
Subjective - Subjective Chief complaint: CONSULT FOR: 1. Pancreatitis. 2. carcinoma of esophagus. Patient: known to practice within the last 3 years Consult date: 08/09/24 Requesting Physician: Rebecca Primary Care Provider: Nikhil Gray [facility] Family Provider: Nikhil Gray [facility] Medical Summary: DIAGNOSIS: 1. Pancreatitis. 2. Recurrent carcinoma of esophagus. Therapy: 1. Combined modality therapy with radiation along with weekly carboplatin and Taxol, had 4 weeks, Completed 08/21/2017. 2. Had disease recurrence, seen at the EG junction on endoscopy on October 27, 2020. Completed re- radiation, 07/04/20. RECURRENT CARCINOMA OF THE ESOPHAGUS. Started on pembrolizumab on 03/01. Had cycle 4 on 06/20/24. 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 Recurrent carcinoma of the esophagus. Narrative: Tj Granda is a 63 year old unfortunate gentleman, admitted on 08/05 with acute pancreatitis. 08/05/24 Pt. called oncology office, reporting severe abdominal pain, gradually worsening abdominal distention, nausea, vomiting. Patient voiced suicidal ideations, stated he is thinking of killing himself due to persistent severe abdominal pain. This was new for patient, there is no prior history of severe depression. He agreed to be seen in the office. Reported gradually worsening abdominal distention, pain, nausea or vomiting. Denies pain relief with Tylenol and Advil. He states he ran out of oxycodone sometime ago. However, oxycodone was not providing significant relief either. Denies difficulty with tube feedings via gravity. States able to have 6-7 tube feedings in 24 hour perioid, but the nausea and vomiting persists and is hard to ascertain if tube feedings are making it worse as it appears to occur sporadically before and after feedings. Emesis is yellow to brown. No gilma blood or obvious coffee-ground emesis. Denies melena or bright red blood per rectum. Stools are on a looser side, denies watery diarrhea. Reports fatigue, denies fevers. Importance of prompt evaluation of present gastrointestinal symptoms, pain, as well as for evaluation of mentioned suicidal ideations were discussed with patient and his spouse. Patient agreed to go to the ER for further evaluation and management. Medical History:) Wears dentures History of blood transfusion History of GI bleed (~2017) Type 2 diabetes mellitus with hyperglycemia Type 2 diabetes mellitus with diabetic polyneuropathy Hyperlipidemia LDL goal <70 Adenocarcinoma of lower esophagus Hx of splenomegaly Male circumcision Constipation Thrombocytopenia Elevated ferritin Esophageal varices Seizure disorder Alcoholic cirrhosis Hepatitis C Anemia Stroke Hepatic cirrhosis Diabetes Esophagus, carcinoma Surgical History:) S/P percutaneous endoscopic gastrostomy (PEG) tube placement History of surgery on lower extremity (~2003) S/P transjugular intrahepatic portosystemic shunt (~2017) Hx of circumcision Hx of colonoscopy (08/2021) Hx of endoscopy (08/2021). Family History: Father No problems noted. Mother Diabetes mellitus. Social History:) Household Members: Spouse Household Members Other:: Spouse: Antoni Housing: House Are you a primary caregivers homecare to a significant other at home: No Do you presently have visiting nurse or other home services: No Alcohol intake: never Patient Tobacco Use Status: Former Tobacco user Tobacco use type: Cigarette Years Smoked: 10 Smoked in Last 30 Days: No e-Cigarette/Vaping Use: Never Used Second Hand Smoke Exposure: No Review of Systems - Constitutional Reports system reviewed and no additional complaints, except as documented, Reports fatigue, Reports lack of energy, Reports malaise, Reports poor appetite, Reports weight loss - Eyes Reports system reviewed and no additional complaints, except as documented - ENT Reports system reviewed and no additional complaints, except as documented - Cardiovascular Reports system reviewed and no additional complaints, except as documented - Respiratory Reports no additional respiratory complaints - Gastrointestinal Reports system reviewed and no additional complaints, except as documented - Genitourinary Genitourinary: Reports no additional male genitourinary complaints - Musculoskeletal Reports system reviewed and no additional complaints, except as documented - Integumentary/Breasts Skin/Breast: Reports no additional skin complaints - Neurologic Reports system reviewed and no additional complaints, except as documented - Psychiatric Reports system reviewed and no additional complaints, except as documented - Endocrine Reports no additional endocrine complaints - Hematologic/Lymphatic Reports system reviewed and no additional complaints, except as documented - Allergic/Immunologic Reports system reviewed and no additional complaints, except as documented Oncology Screenings - ECOG Performance Status ECOG Performance Status: 2 [facility] Medical History: Medical History (Last Reviewed 08/19/24 @ 20:35 by Matt Boogie MD) Acute pancreatitis 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 Alcoholic cirrhosis Anemia Ascites Constipation Diabetes Elevated ferritin Esophageal mass Esophageal varices Esophagus, carcinoma Hepatic cirrhosis Hepatitis C History of blood transfusion History of GI bleed Onset Date: ~2017 Hx of splenomegaly Hyperlipidemia LDL goal <70 Male circumcision Seizure disorder Stroke Thrombocytopenia Type 2 diabetes mellitus with diabetic polyneuropathy Type 2 diabetes mellitus with hyperglycemia Wears dentures Functional capacity: uses cane/walker Patient : No Family History: Family History (Last Reviewed 08/19/24 @ 20:35 by Matt Boogie MD) Father No problems noted. Mother Diabetes mellitus Surgical History: Surgical History (Last Reviewed 08/19/24 @ 20:35 by Matt Boogie MD) History of surgery on lower extremity Onset Date: ~2003 Hx of circumcision Hx of colonoscopy Onset Date: 08/2021 Hx of endoscopy Onset Date: 08/2021 S/P percutaneous endoscopic gastrostomy (PEG) tube placement S/P transjugular intrahepatic portosystemic shunt Onset Date: ~2017 Social History: Social History (Last Reviewed 08/19/24 @ 20:35 by Matt Boogie MD) Living Situation History: Household Members: Spouse Household Members Other:: Spouse: Antoni Housing: House Are you a primary caregivers homecare to a significant other at home: No Do you presently have visiting nurse or other home services: Yes Tobacco History: Patient Tobacco Use Status: Former Tobacco user Tobacco use type: Cigarette Years Smoked: 10 Smoking End Date: 11/19/23 e-Cigarette/Vaping Use: Never Used Second Hand Smoke Exposure: No Advance Directives: Advance Directives Date on File: 01/28/21 Occupation Assessmet: service: No Current occupational status: disabled Home Medications and Allergies Current Medications: Current Medications Acetaminophen (Acetaminophen 325 Mg Tablet) 650 mg PO Q6H PRN PRN Reason: Pain, Mild 1-3,fever,headache Atorvastatin Calcium (Atorvastatin Calcium 10 Mg Tablet) 10 mg G-TUBE BEDTIME [facility] Last Admin: 08/08/24 20:14 Dose: 10 mg Calcium Carbonate (Calcium Carbonate 750 Mg Tab.Chew) 750 mg PO Q4H PRN PRN Reason: Heartburn Dextrose (Dextrose 50 % 25 Gm/50 Ml Syringe) 25 gm IVPUSH Q15M PRN; Protocol PRN Reason: per Hypoglycemia Standing Ord. Enoxaparin Sodium (Enoxaparin Sodium 40 Mg/0.4 Ml Syringe) 40 mg SUBCUT Q24H [facility] Last Admin: 08/09/24 09:18 Dose: 40 mg Glucose (Glucose Gel 15 Gm Gel..Gram.) 15 gm PO Q15M PRN; Protocol PRN Reason: per Hypoglycemia Standing Ord. Hydromorphone HCl (Hydromorphone Hcl 0.5 Mg/0.5 Ml Syringe) 0.5 mg IVPUSH Q3H PRN; Protocol PRN Reason: Pain, Severe (Pain Scale 7-10) Insulin Human Lispro (Insulin Lispro 100 Unit/Ml 3 Ml Vial) 0 unit SUBCUT QIDACHS [facility]; Protocol Last Admin: 08/09/24 11:50 Dose: 4 unit Levetiracetam (Levetiracetam Oral Soln 500 Mg/5 Ml) 250 mg G-TUBE BID [facility] Last Admin: 08/09/24 08:03 Dose: 250 mg Magnesium Hydroxide (Milk Of Magnesia 30 Ml Oral.Susp) 30 ml PO DAILY PRN PRN Reason: Constipation Melatonin (Melatonin 3 Mg Tablet) 6 mg PO BEDTIME PRN PRN Reason: Insomnia Pt Owned Med ( Repaglinide 0.5mg Tablet) 1 each G-TUBE TID [facility] Last Admin: 08/09/24 08:04 Dose: 1 each Ondansetron HCl (Ondansetron Hcl 4 Mg/2 Ml Vial) 4 mg IVPUSH Q6H PRN PRN Reason: Nausea Last Admin: 08/09/24 13:23 Dose: 4 mg Sodium Chloride (0.9 % Sodium Chloride Flush 3 Ml Syringe) 3 ml IVFLUSH QSHIFT [facility] Last Admin: 08/09/24 07:59 Dose: 3 ml Vitamin D (Cholecalciferol (Vitamin D3) 25 Mcg Tablet) 25 mcg G-TUBE DAILY [facility] Last Admin: 08/09/24 08:04 Dose: 25 mcg Home Medications ?Medication ?Instructions ?Recorded ?Confirmed ?Type lancets 33 gauge #100 ea 08/15/20 08/15/24 History pen needle, diabetic 31 gauge x #1,200 ea 08/15/20 08/15/24 History 5/16 levetiracetam 100 mg/mL oral 250 mg feeding tube BID 08/05/24 08/19/24 History solution ferrous sulfate 325 mg (65 mg 325 mg feeding tube BID 08/19/24 08/19/24 History iron) tablet furosemide 40 mg tablet 40 mg feeding tube DAILY 08/19/24 08/19/24 History lisinopril 2.5 mg tablet 2.5 mg feeding tube DAILY 08/19/24 08/19/24 History nadolol 20 mg tablet 20 mg feeding tube DAILY 08/19/24 History spironolactone 100 mg tablet 100 mg feeding tube DAILY 08/19/24 History Allergies Allergy/AdvReac Type Severity Reaction Status Date / Time No Known Allergies Allergy Verified 08/19/24 14:22 Physical Exam Vital signs: Vital Signs Temp 98.6 F 08/09/24 07:34 Pulse 115 H 08/09/24 07:34 Resp 16 08/09/24 07:34 BP 117/78 08/09/24 07:34 Pulse Ox 93 08/09/24 07:34 O2 Del Method Room Air 08/09/24 07:34 Intake & Output 08/08/24 08/09/24 08/09/24 18:59 06:59 18:59 Intake Total 90 / 90 Balance 90 / 90 Intake: Intake, Oral Amount 50 / 50 Intake, Tube Feeding Amount 40 / 40 Other: Meal Refused No NPO Yes Yes Number of Unmeasured Voids 1 1 Number of Bowel Movements 0 Urine Bathroom Bathroom Urine Color Yellow Last Bowel Movement 08/09/24 Stool Bathroom Ostomy Stool Amount Moderate Stool Color dark pasty Stool Consistency Pasty Weight 70.7 kg Weight 70.7 kg - Constitutional Present: moderate distress, chronically ill appearing - Routine HEENT Exam Head: Present: normal inspection, normocephalic ENT: Present: mucous membranes moist - Routine Neck Exam Present: supple Hem/Onc Consult Result - Labs CBC & Chem 7: 08/11/24 05:40 08/11/24 05:40 Labs: Short CBC 08/09/24 Range/Units 06:59 WBC 8.0 (4.8-10.8) X10*3/uL Hgb 13.5 L (14.0-18.0) g/dl Hct 40.4 L (42.0-52.0) % Plt Count 105 L (160-400) X10*3/uL BMP 08/09/24 06:59 Sodium 143 Potassium 3.8 Chloride 109 H Carbon Dioxide 25 BUN 21 H Creatinine 0.60 Calcium 8.2 L D Liver Function 08/09/24 Range/Units 06:59 Total Bilirubin 0.8 (0.0-1.0) mg/dL Direct Bilirubin 0.5 (0.0-0.5) mg/dL AST 45 H (5-37) U/L ALT 25 (0-40) U/L Alkaline Phosphatase 134 H (39-117) U/L Albumin 2.7 L (3.5-5.0) g/dL Assessment and Plan Patient Active problem list reviewed?: Yes (1) Adenocarcinoma of lower esophagus Status: Inactive Assessment and plan: 63-year-old gentleman with previous history of adenocarcinoma of the esophagus. He underwent combined modality therapy with chemoradiation in 2018. During the summer, he had dysphagia to solids. Upper endoscopy on 01/18, by Dr. Suggs. This revealed: Esophagus: The distal esophagus showed a 5 cm area of ulceration with masslike effect consistent with possible recurrence of his adenocarcinoma. Biopsies were carefully obtained from the distal esophagus. There were no esophageal varices identified. Stomach: The stomach showed no evidence of masses or ulcers. Retroflexed examination showed no mass lesion extending below the EG junction. Pathology revealed: Superficial fragments of adenocarcinoma, moderately differentiated. His CBC: WBC 6.4, Hemoglobin is 15.2. PLT 90. LFTs are normal. He had a CT scan of the chest abdomen pelvis on 02/16, which revealed: 1. Marked thickening of the distal esophagus beginning below the level of the itzel down to the GE junction suspicious for recurrent esophageal carcinoma. 2. No evidence of metastatic disease in the chest, abdomen or pelvis. 3. Cirrhotic liver with patent TIPS and splenomegaly. His pathology did show PD-L1 positivity with a CPS score of 5. He was deemed a candidate for pembrolizumab, based therapy. He was started on it, on 03/01. 06/20, He had cycle #4. He tolerated the 1st 3 cycles well. CEA: 2.20. Subsequently, he called mentioning that he was not able to swallow food. He was advised to go into the hospital. A G-tube placement was attempted. However the scope did not pass through. He then had a gastrostomy tube placed surgically. He is now receiving tube feedings. It appears that he stopped responding to the pembro. Further options are limited, in view of his poor reserve due to thrombocytopenia. He could possibly have received palliative radiation, although he has had radiation twice in the past. Last time was in 2020. I got an opinion from Dr. Santillan from [facility], however she felt there was no more room for more radiation. I discussed with him and his the option of palliative chemotherapy with Carboplatin and Taxane. I was concerned about underlying pancytopenia, from liver disease, however, his blood count appears to have improved. My plan was to treat him with palliative chemotherapy, with ramucirumab and paclitaxel. I gave him low-dose oxycodone to help with the pain and insomnia. However unfortunately on 08/05 he presented to the office with severe abdominal pain and suicidal ideation. He was admitted to the hospital. He was diagnosed with acute pancreatitis. CT scan of the abdomen from 08/05/2024 revealed: 1. New moderate amount of ascites. Mild wall thickening of the ascending and descending colon made be due to cirrhosis and ascites. 2. Cirrhosis of the liver, status post TIPS placement. Splenomegaly. 3. Marked irregularity and wall thickening of the distal esophagus, consistent with the patient's known adenocarcinoma. Patient had received pembrolizumab which could be implicated in terms of immune mediated reactions, however his last dose was on 06/20/2024 so not likely. He is being managed with supportive care including IV hydration and narcotic analgesics. He appears to have worsening ascites. This could be related to his malignancy versus underlying cirrhosis. PLAN: Will have a paracentesis performed by IR under ultrasound guidance, tomorrow. He will go home once he is stable. He will return next week to start on his palliative chemo/immuno therapy. Thank you for this consult, I will follow along with you, CC: Dr. Suggs. - Time Spent With Patient Time Spent with Patient (in minutes): 30
[2024-08-09 16:00] VITALS: BP 126/78; PULSE 112; RESP 16; TEMP 37; O2SAT 94
[2024-08-09 16:43] LABS: Glucose, Whole Blood 253 mg/dL (60-115)
[2024-08-09 19:08] VITALS: BP 132/76; PULSE 105; RESP 17; TEMP 37; O2SAT 94
[2024-08-09] MEDS: Atorvastatin Calcium 10 MG TABLET G-TUBE (19:40)
[2024-08-09 20:40] LABS: Glucose, Whole Blood 228 mg/dL (60-115)
[2024-08-10] VITALS (8 sets, daily range): BP systolic 117–134; BP diastolic 76–88; PULSE 111–118; RESP 15–18; TEMP 36.3–36.9; O2SAT 93–96
--- NOTE | 2024-08-10 02:03 | CONS_ITS ---
DATE OF SERVICE: 08/09/2024 REFERRING PHYSICIAN: Dr. Fernandez REASON FOR CONSULTATION: Pancreatitis and ascites. HISTORY OF PRESENT ILLNESS: The patient is a pleasant 63-year-old man known to me from previous evaluation. He has a history of adenocarcinoma of the lower esophagus, which was recurrent requiring G-tube feedings and has been treated with Keytruda. He was admitted to the hospital with worsening abdominal distention over a several-week period and discomfort from that. He was evaluated in the emergency department with laboratory studies and imaging, which are reviewed. The major finding is new onset ascites, which he has never had before. He does have a history of TIPS placement for complications from esophageal varices and ultrasound imaging documented this to be patent, but slightly stenotic. Laboratory studies also indicated an elevated lipase, however, his pancreas on imaging appears normal. He denies alcohol use and has never had a history of pancreatitis. PAST MEDICAL HISTORY: 1. Adenocarcinoma of the esophagus, requiring G-tube feedings. 2. Diabetes mellitus type 2. 3. Hepatic cirrhosis with history of hepatitis C and SVR. 4. Gastric varices, requiring embolization. 5. Colonoscopy 2021, arteriovenous malformation, internal hemorrhoids, 10-year followup. 6. CVA. 7. Leg fracture, requiring surgical fixation. CURRENT MEDICATIONS: List is reviewed in the chart. ALLERGIES: THERE ARE NONE REPORTED. FAMILY HISTORY: This is reviewed with the patient and is noncontributory. SOCIAL HISTORY: There is no current tobacco, alcohol, or substance abuse. REVIEW OF SYSTEMS: SKIN: No pruritus. HEENT: Negative. CARDIOPULMONARY: No shortness of breath or chest pain. GASTROINTESTINAL: As above. GENITOURINARY: Negative. NEUROPSYCHIATRIC: Negative. PHYSICAL EXAMINATION: GENERAL: Shows a pleasant male, lying in bed. SKIN: Anicteric. HEENT: Shows no scleral icterus. There is temporal wasting. NECK: Without lymphadenopathy or thyromegaly. LUNGS: Clear. HEART: Shows regular rate and rhythm. S1, S2. No murmur. ABDOMEN: Distended. Bowel sounds are present. No organomegaly is noted. EXTREMITIES: Without edema. LABORATORY DATA AND IMAGING STUDIES: Reviewed. IMPRESSION: Adenocarcinoma of the esophagus, cirrhosis, ascites. Based on his TIPS being patent, it seems unlikely that his ascites is due to his cirrhosis and more concerning that this is a malignant ascites. I have recommended paracentesis for further evaluation with cytology and laboratory studies. His pancreas appeared structurally normal on imaging, so the likelihood of acute pancreatitis seems fairly low. He appears to be tolerating feeds relatively well and paracentesis may help him in this respect as well. This was discussed with the patient and his . Thanks for asking me to see him. I will follow him in the hospital with you. MD GUY Tejada/JUAN CARLOS / [phone]
[2024-08-10] MEDS: HYDROmorphone HCl 0.5 MG/0.5 ML SYRINGE IVPUSH ×6 (02:42→21:19)
[2024-08-10] MEDS: Metoclopramide HCl 10 MG/2 ML VIAL 5 MG IVPUSH (03:11)
--- NOTE | 2024-08-10 03:17 | PC.NURSE ---
patient c/o nausea with no effect from zofran and IV pain meds q2 prn . tube feeds paused. Dr spain aware. x1 dose of IV reglan ordered and given. plan of care ongoing.
[2024-08-10 07:05] LABS: Anion Gap 11 (12-20); Blood Urea Nitrogen 24 mg/dL (9-16); Calcium 8.2 mg/dL (8.4-10.2); Carbon Dioxide 26 mmol/L (22-29); Chloride 108 mmol/L (96-108); Creatinine Clr Calc Pharmacy 112.2; Estimated Glomerular Filt Rate > 60; Glucose Random 226 mg/dL (60-115); Potassium 3.9 mmol/L (3.3-5.1); Sodium 141 mmol/L (135-145)
[2024-08-10 07:15] LABS: Hematocrit 39.1 % (42.0-52.0); Hemoglobin 13.1 g/dl (14.0-18.0); Mean Corpuscular HGB Conc 33.5 g/dl (31.0-36.0); Mean Corpuscular Hemoglobin 30.1 pg (27.0-33.0); Mean Corpuscular Volume 89.9 fL (80.0-98.0); Mean Platelet Volume 9.7 fL (9.4-12.4); Platelet Count 107 X10*3/uL (160-400); Red Blood Count 4.35 X10*6/uL (4.60-5.80); White Blood Count 10.3 X10*3/uL (4.8-10.8)
[2024-08-10] MEDS: 0.9 % Sodium Chloride Flush 3 ML SYRINGE IVFLUSH ×2 (07:32→16:39)
[2024-08-10] MEDS: ondansetron HCL 4 MG/2 ML VIAL IVPUSH ×2 (07:32→14:09)
[2024-08-10] MEDS: [UNRECOGNIZED DRUG - OTHER] 1 EACH G-TUBE ×3 (07:35→21:26)
[2024-08-10] MEDS: levETIRAcetam Oral Soln 500 MG/5 ML 250 MG G-TUBE ×2 (07:36→21:25)
[2024-08-10] MEDS: Cholecalciferol (Vitamin D3) 25 MCG TABLET G-TUBE (07:36)
--- NOTE | 2024-08-10 07:53 | PC.NURSE ---
Tube feeding on hold since previous shift due to vomiting and nausea,Dr. Fernandez at bedside made aware
[2024-08-10 07:54] LABS: Glucose, Whole Blood 237 mg/dL (60-115)
--- NOTE | 2024-08-10 08:54 | HO.PM.IMPN ---
Subjective Subjective Date of Service: 08/10/24 Interval History: 1 episode of vomiting Physical Exam Vital Signs: Vital Signs: Last Vital Signs Temp 98.4 F 08/10/24 07:44 Pulse 111 H 08/10/24 07:44 Resp 18 08/10/24 07:44 BP 121/76 08/10/24 07:44 Pulse Ox 93 08/10/24 07:44 O2 Del Method Room Air 08/10/24 03:29 BMI result Body Mass Index 24.4 General: AO X 3, no acute distress Resp: CTA bilateral, no accessory muscles used CVS: S1,S2,RRR GI: soft, non tender, distended but not tight Neuro: motor grossly intact, alert Psych: appropriate affect, appropriate insight Objective Data Active Medications Acetaminophen (Acetaminophen 325 Mg Tablet) 650 mg PO Q6H PRN PRN Reason: Pain, Mild 1-3,fever,headache Atorvastatin Calcium (Atorvastatin Calcium 10 Mg Tablet) 10 mg G-TUBE BEDTIME [facility] Last Admin: 08/09/24 19:40 Dose: 10 mg Documented By: RUCHI Calcium Carbonate (Calcium Carbonate 750 Mg Tab.Chew) 750 mg PO Q4H PRN PRN Reason: Heartburn Dextrose (Dextrose 50 % 25 Gm/50 Ml Syringe) 25 gm IVPUSH Q15M PRN; Protocol PRN Reason: per Hypoglycemia Standing Ord. Enoxaparin Sodium (Enoxaparin Sodium 40 Mg/0.4 Ml Syringe) 40 mg SUBCUT Q24H [facility] Last Admin: 08/09/24 09:18 Dose: 40 mg Documented By: NEGRITA Glucose (Glucose Gel 15 Gm Gel..Gram.) 15 gm PO Q15M PRN; Protocol PRN Reason: per Hypoglycemia Standing Ord. Hydromorphone HCl (Hydromorphone Hcl 0.5 Mg/0.5 Ml Syringe) 0.5 mg IVPUSH Q3H PRN; Protocol PRN Reason: Pain, Severe (Pain Scale 7-10) Last Admin: 08/10/24 07:10 Dose: 0.5 mg Documented By: RUCHI Insulin Human Lispro (Insulin Lispro 100 Unit/Ml 3 Ml Vial) 0 unit SUBCUT QIDACHS [facility]; Protocol Last Admin: 08/10/24 07:36 Dose: Not Given Documented By: RAMIREZ Non-Admin Reason: npo not tolerating tube feeding Levetiracetam (Levetiracetam Oral Soln 500 Mg/5 Ml) 250 mg G-TUBE BID [facility] Last Admin: 08/10/24 07:36 Dose: 250 mg Documented By: RAMIREZ Magnesium Hydroxide (Milk Of Magnesia 30 Ml Oral.Susp) 30 ml PO DAILY PRN PRN Reason: Constipation Melatonin (Melatonin 3 Mg Tablet) 6 mg PO BEDTIME PRN PRN Reason: Insomnia Pt Owned Med ( Repaglinide 0.5mg Tablet) 1 each G-TUBE TID [facility] Last Admin: 08/10/24 07:35 Dose: 1 each Documented By: RAMIREZ Ondansetron HCl (Ondansetron Hcl 4 Mg/2 Ml Vial) 4 mg IVPUSH Q6H PRN PRN Reason: Nausea Last Admin: 08/10/24 07:32 Dose: 4 mg Documented By: RAMIREZ Sodium Chloride (0.9 % Sodium Chloride Flush 3 Ml Syringe) 3 ml IVFLUSH QSHIFT [facility] Last Admin: 08/10/24 07:32 Dose: 3 ml Documented By: RAMIREZ Vitamin D (Cholecalciferol (Vitamin D3) 25 Mcg Tablet) 25 mcg G-TUBE DAILY [facility] Last Admin: 08/10/24 07:36 Dose: 25 mcg Documented By: RAMIREZ Labs 08/10/24 06:03 08/10/24 06:03 Labs: Laboratory Results - last 24 hr 08/09/24 08/09/24 08/09/24 11:29 16:14 19:27 MCV MCH MCHC RDW Plt Count MPV Absolute Nucleated RBC Nucleated RBC % (auto) Anion Gap Estim Creat Clear Calc Estimated GFR POC Glucose 219 H 253 H 228 H Random Glucose Calcium 08/10/24 08/10/24 06:03 07:49 MCV 89.9 MCH 30.1 MCHC 33.5 RDW 14.0 Plt Count 107 L MPV 9.7 Absolute Nucleated RBC 0.000 Nucleated RBC % (auto) 0.0 Anion Gap 11 L Estim Creat Clear Calc 112.2 Estimated GFR > 60 POC Glucose 237 H Random Glucose 226 H Calcium 8.2 L 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, on Keytruda, type 2 diabetes, HCV cirrhosis status post tips, seizure disorder presented with abdominal distention nausea and vomiting elevated lipase with abdominal pain ?Acute pancreatitis vs symptomatic ascites Possibly due to Keytruda, though less likely as hasnt had in a few months, GI appreciated - plan for paracentesis tolerated slow rate feeds, changed to bolus feeds and had some nausea with episode of vomiting, however, patient would much prefer bolus feeds and wishes to continue to try HCV cirrhosis with ascites Plan for paracentesis diagnostic and therapeutic will give albumin with paracentesis Ultrasound was suspicious for tips stenosis Outpatient follow-up Diabetes Insulin sliding scale Seizure disorder Continue Keppra DVT prophylaxis with Lovenox DNR/DNI reason for continued hospitalization: awaiting tolerance of full solids Quality Stroke Does the patient have a stroke diagnosis?: No VTE Prior VTE?: No VTE Risk Level:: Medical - moderate - high VTE Device Contraindication: Treatment Not Indicated VTE Drug Contraindication: N/A - Med Ordered
[2024-08-10] MEDS: Enoxaparin Sodium 40 MG/0.4 ML SYRINGE SUBCUT (10:22)
[2024-08-10 11:46] LABS: Glucose, Whole Blood 215 mg/dL (60-115)
[2024-08-10] MEDS: Insulin Lispro 100 UNIT/ML 3 ML VIAL SUBCUT ×2 (12:09→21:23)
--- NOTE | 2024-08-10 12:49 | MHC.CLN ---
F/U TUBE FEEDING HELD THIS AM DUE TO NAUSEA, VOMITING. NOW RESTARTED. PER MD NOTE, PATIENT PREFERS BOLUS TUBE FEEDING. GLUCERNA 1.0 BOLUS 240 ML 6 TIMES DAILY PLUS FREE WATER FLUSHES 240 ML Q 4 HOURS PROVIDES: 1422 KCALS (20 KCALS/KG), 59.4 G PROTEIN (.84 G/KG), 2634 ML TOTAL FREE WATER FROM FORMULA AND FLUSHES (37 ML/KG). FOLLOW FOR TUBE FEED TOLERANCE. CURRENT ORDER DOES NOT MEET ESTIMATED ENERGY OR PROTEIN NEEDS. MONITOR OR TOLERANCE AND INCREASE ABLE.
--- NOTE | 2024-08-10 14:43 | PC.NURSE ---
Residual 260 ml,feeding paused,Dr. Fernandez notified
--- NOTE | 2024-08-10 15:20 | PC.NURSE ---
Will hold feeding till tommorrow per Dr. Fernandez ,no IV fluids for now
[2024-08-10] MEDS: Lidocaine HCl 1 % MPF 5 ML VIAL SUBCUT (15:55)
[2024-08-10 16:14] LABS: Glucose, Whole Blood 236 mg/dL (60-115)
[2024-08-10 16:21] LABS: RBC Peritoneal Fluid 0.008 X10*6/uL; WBC Peritoneal Fluid 0.803 X10*3/uL
[2024-08-10 16:48] LABS: Lymphocyte Peritoneal Fl 40 %; Monocytes Peritoneal Fl 9 %; Neutrophils Peritoneal Fluid 48 %; Other Peritioneal Fl 3 %
[2024-08-10 16:49] LABS: BF Shift QC OK YES
[2024-08-10 21:01] LABS: Glucose, Whole Blood 242 mg/dL (60-115)
[2024-08-10] MEDS: Atorvastatin Calcium 10 MG TABLET G-TUBE (21:25)
[2024-08-11 03:07] VITALS: BP 123/76; PULSE 118; RESP 16; TEMP 36.2; O2SAT 93
[2024-08-11] MEDS: HYDROmorphone HCl 0.5 MG/0.5 ML SYRINGE IVPUSH (05:43)
[2024-08-11 06:01] LABS: PLT CLUMP 1
[2024-08-11 06:03] LABS: Hematocrit 40.4 % (42.0-52.0); Hemoglobin 13.3 g/dl (14.0-18.0); Mean Corpuscular HGB Conc 32.9 g/dl (31.0-36.0); Mean Corpuscular Hemoglobin 29.7 pg (27.0-33.0); Mean Corpuscular Volume 90.2 fL (80.0-98.0); Mean Platelet Volume 10.3 fL (9.4-12.4); Platelet Count 101 X10*3/uL (160-400); Red Blood Count 4.48 X10*6/uL (4.60-5.80); Red Cell Distribution Width 14.2 % (11.0-16.0); White Blood Count 9.7 X10*3/uL (4.8-10.8)
[2024-08-11 06:24] LABS: Anion Gap 12 (12-20); Blood Urea Nitrogen 22 mg/dL (9-16); Calcium 8.3 mg/dL (8.4-10.2); Carbon Dioxide 28 mmol/L (22-29); Chloride 106 mmol/L (96-108); Creatinine Clr Calc Pharmacy 102.4; Estimated Glomerular Filt Rate > 60; Glucose Random 232 mg/dL (60-115); Potassium 4.2 mmol/L (3.3-5.1); Sodium 142 mmol/L (135-145)
[2024-08-11 07:31] LABS: Albumin Peritoneal Fluid 0.9; Amylase Peritoneal Fluid 1.8; Total Protein Peritoneal Fluid 20
[2024-08-11] MEDS: levETIRAcetam Oral Soln 500 MG/5 ML 250 MG G-TUBE ×2 (07:33→21:19)
[2024-08-11] MEDS: Cholecalciferol (Vitamin D3) 25 MCG TABLET G-TUBE (07:33)
[2024-08-11] MEDS: [UNRECOGNIZED DRUG - OTHER] 1 EACH G-TUBE ×3 (07:34→21:20)
[2024-08-11] MEDS: 0.9 % Sodium Chloride Flush 3 ML SYRINGE IVFLUSH ×3 (07:35→21:21)
[2024-08-11 07:36] VITALS: BP 122/78; PULSE 112; RESP 16; TEMP 36.7; O2SAT 95
[2024-08-11 07:51] LABS: Glucose, Whole Blood 241 mg/dL (60-115)
[2024-08-11] MEDS: Insulin Lispro 100 UNIT/ML 3 ML VIAL SUBCUT ×4 (07:59→21:20)
--- NOTE | 2024-08-11 08:39 | P.PNIM_ITS ---
Subjective Subjective Date of Service: 08/11/24 Interval History: not tolerating bolus fees, is tolerating continuous Physical Exam 2 Vital Signs: Vital Signs: Last Vital Signs Temp 98.0 F 08/11/24 07:36 Pulse 112 H 08/11/24 07:36 Resp 16 08/11/24 07:36 BP 122/78 08/11/24 07:36 Pulse Ox 95 08/11/24 07:36 O2 Del Method Room Air 08/11/24 07:36 BMI result Body Mass Index 24.4 General: AO X 3, no acute distress Resp: CTA bilateral, no accessory muscles used CVS: S1,S2,RRR GI: soft, non tender, distended but not tight Neuro: motor grossly intact, alert Psych: appropriate affect, appropriate insight Objective Data Active Medications Acetaminophen (Acetaminophen 325 Mg Tablet) 650 mg PO Q6H PRN PRN Reason: Pain, Mild 1-3,fever,headache Atorvastatin Calcium (Atorvastatin Calcium 10 Mg Tablet) 10 mg G-TUBE BEDTIME [facility] Last Admin: 08/10/24 21:25 Dose: 10 mg Documented By: ALEJANDRA Calcium Carbonate (Calcium Carbonate 750 Mg Tab.Chew) 750 mg PO Q4H PRN PRN Reason: Heartburn Ceftriaxone Sodium (Ceftriaxone Sodium 1 Gm Vial) 1 gm IVPUSH Q24H [place] Dextrose (Dextrose 50 % 25 Gm/50 Ml Syringe) 25 gm IVPUSH Q15M PRN; Protocol PRN Reason: per Hypoglycemia Standing Ord. Enoxaparin Sodium (Enoxaparin Sodium 40 Mg/0.4 Ml Syringe) 40 mg SUBCUT Q24H [facility] Last Admin: 08/10/24 10:22 Dose: 40 mg Documented By: RAMIREZ Glucose (Glucose Gel 15 Gm Gel..Gram.) 15 gm PO Q15M PRN; Protocol PRN Reason: per Hypoglycemia Standing Ord. Insulin Human Lispro (Insulin Lispro 100 Unit/Ml 3 Ml Vial) 0 unit SUBCUT QIDACHS [facility]; Protocol Last Admin: 08/11/24 07:59 Dose: 4 unit Documented By: BRIANDA Levetiracetam (Levetiracetam Oral Soln 500 Mg/5 Ml) 250 mg G-TUBE BID [facility] Last Admin: 08/11/24 07:33 Dose: 250 mg Documented By: BRIANDA Magnesium Hydroxide (Milk Of Magnesia 30 Ml Oral.Susp) 30 ml PO DAILY PRN PRN Reason: Constipation Melatonin (Melatonin 3 Mg Tablet) 6 mg PO BEDTIME PRN PRN Reason: Insomnia Morphine Sulfate (Morphine Sulfate Oral Maria Isabel 10 Mg/5 Ml Solution) 5 mg G-TUBE Q4H PRN PRN Reason: Pain, Severe (Pain Scale 7-10) Pt Owned Med ( Repaglinide 0.5mg Tablet) 1 each G-TUBE TID [facility] Last Admin: 08/11/24 07:34 Dose: 1 each Documented By: BRIANDA Ondansetron HCl (Ondansetron Hcl 4 Mg/2 Ml Vial) 4 mg IVPUSH Q6H PRN PRN Reason: Nausea Last Admin: 08/10/24 14:09 Dose: 4 mg Documented By: RAMIREZ Sodium Chloride (0.9 % Sodium Chloride Flush 3 Ml Syringe) 3 ml IVFLUSH QSHIFT [facility] Last Admin: 08/11/24 07:35 Dose: 3 ml Documented By: BRIANDA Vitamin D (Cholecalciferol (Vitamin D3) 25 Mcg Tablet) 25 mcg G-TUBE DAILY [facility] Last Admin: 08/11/24 07:33 Dose: 25 mcg Documented By: BRIANDA Labs 08/11/24 05:40 08/11/24 05:40 Labs: Laboratory Results - last 24 hr 08/10/24 08/10/24 08/10/24 11:14 15:30 16:10 MCV MCH MCHC RDW Plt Count MPV Absolute Nucleated RBC Nucleated RBC % (auto) Anion Gap Estim Creat Clear Calc Estimated GFR POC Glucose 215 H 236 H Random Glucose Calcium Peritoneal WBC 0.803 Peritoneal RBC 0.008 Periton Neutrophils 48 Periton Lymphocytes 40 Peritoneal Monocytes 9 Peritoneal Other Cells 3 Peritoneal Tot Protein 20 Peritoneal Albumin 0.9 Peritoneal Amylase 1.8 08/10/24 08/11/24 08/11/24 20:57 05:40 07:42 MCV 90.2 MCH 29.7 MCHC 32.9 RDW 14.2 Plt Count 101 L MPV 10.3 Absolute Nucleated RBC 0.000 Nucleated RBC % (auto) 0.0 Anion Gap 12 Estim Creat Clear Calc 102.4 Estimated GFR > 60 POC Glucose 242 H 241 H Random Glucose 232 H Calcium 8.3 L Peritoneal WBC Peritoneal RBC Periton Neutrophils Periton Lymphocytes Peritoneal Monocytes Peritoneal Other Cells Peritoneal Tot Protein Peritoneal Albumin Peritoneal Amylase Microbiology Microbiology Results: Microbiology 08/10/24 15:30 Gram Stain - Final Ascites Fluid Routine Culture - Preliminary No growth to date. Anaerobic Culture - Preliminary No growth to date. 08/05/24 15:55 Blood Culture - Final Blood - Venous No growth after 5 days. 08/05/24 15:47 Blood Culture - Final Blood - Venous No growth after 5 days. 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, on Keytruda, type 2 diabetes, HCV cirrhosis status post tips, seizure disorder presented with abdominal distention nausea and vomiting elevated lipase with abdominal pain ?Acute pancreatitis vs symptomatic HCV cirrhosis with ascites s/p paracentesis 08/10/24: WBC 803, 48% neutrophils c/w SBP, though gram stain and culture negative so far, SAAG>1.1, started rocephin, follow up cytology rule out malignant ascites US ?tips stenosis - outpatient follow up GI following failed multiple attempts at bolus feeds (patient preference) and did not tolerate due to pain/residuals/vomiting, changed to continuous and appears to be tolerating so far, plan to set up for home continuous will change IV opiates to gtube morphine adenocarcinoma of esophogus outpatient follow up Diabetes Insulin sliding scale Seizure disorder Continue Keppra DVT prophylaxis with Lovenox DNR/DNI reason for continued hospitalization: awaiting cultures, awaiting tolerance of feeds without iv opiates Quality Stroke Does the patient have a stroke diagnosis?: No VTE Prior VTE?: No VTE Risk Level:: Medical - moderate - high VTE Device Contraindication: Treatment Not Indicated VTE Drug Contraindication: N/A - Med Ordered
[2024-08-11] MEDS: cefTRIAXone sodium 1 GM VIAL IVPUSH (09:05)
[2024-08-11] MEDS: Enoxaparin Sodium 40 MG/0.4 ML SYRINGE SUBCUT (09:05)
[2024-08-11] MEDS: Morphine Sulfate Oral Sol 10 MG/5 ML SOLUTION 5 MG G-TUBE ×3 (09:05→18:43)
[2024-08-11 11:22] LABS: Glucose, Whole Blood 244 mg/dL (60-115)
--- NOTE | 2024-08-11 13:06 | P.PNGI_ITS ---
Subjective Subjective Date of Service: 08/11/24 Interval History: feels better after paracentesis Critical Care Time (minutes): 0 Physical Exam 2 Vital Signs: Vital Signs: Last Vital Signs Temp 98.0 F 08/11/24 07:36 Pulse 112 H 08/11/24 07:36 Resp 16 08/11/24 07:36 BP 122/78 08/11/24 07:36 Pulse Ox 95 08/11/24 07:36 O2 Del Method Room Air 08/11/24 07:36 BMI result Body Mass Index 24.4 GI: Other: abdomen is softer and less distended. Objective Data Labs 08/11/24 05:40 08/11/24 05:40 Microbiology Microbiology Results: Microbiology 08/10/24 15:30 Ascites Fluid Gram Stain - Final 08/10/24 15:30 Ascites Fluid Routine Culture - Preliminary No growth to date. 08/10/24 15:30 Ascites Fluid Anaerobic Culture - Preliminary No growth to date. 08/05/24 15:55 Blood - Venous Blood Culture - Final No growth after 5 days. 08/05/24 15:47 Blood - Venous Blood Culture - Final No growth after 5 days. Procedures Date of Service Date of Service: 08/11/24 Progress Note: A&P Assessment and plan (1) Ascites: Status: Acute Assessment and Plan: s/p paracentesis agree with abx await cytology. Time Spent With Patient Time: Total time managing care of this patient today ____ minutes. Quality Stroke Does the patient have a stroke diagnosis?: No VTE Prior VTE?: No VTE Risk Level:: Medical - moderate - high VTE Device Contraindication: Treatment Not Indicated VTE Drug Contraindication: N/A - Med Ordered
--- NOTE | 2024-08-11 14:03 | MHC.CLN ---
F/U PATIENT NOT TOLERATING BOUS TUBE FEEDING. FEEDING CHANGED TO CONTINUOUS AND IS TOLERATING. RECOMMEND GLUCERNA 1.0 AT 80 ML PER HOUR PLUS FREE WATER FLUSHES 240 ML Q 8 HOURS TO PROVIDE: 1920 KCALS (28.5 KCALS/KG IBW), 80 G PROTEIN (1.2 G/KG), 2333 ML TOTAL FREE WATER FROM FORMULA AND FLUSHES (34.7 ML/KG). FOLLOW FOR TUBE FEED TOLERANCE.
[2024-08-11 16:00] VITALS: BP 117/72; PULSE 114; RESP 14; TEMP 36.9; O2SAT 95
--- NOTE | 2024-08-11 16:19 | MHC.CM.PN ---
CM MET WITH PT AND AT BEDSIDE THEY CONTINUE TO REFUSE CONTINUOUS FEEDS AND REPORT THEY ARE ONLY WILLING TO DO BOLUS FEEDS THEY REPORT THEY DO UNDERSTAND THAT PT IS NOT TOLERATING BOLUS, BUT HE IS NOT WILLING TO USE THE EQUIPMENT FOR CONTINUOUS FEEDS AND SHE IS NOT WILLING TO ASSIST WITH THAT CARE MD SPOKE TO THEM AGAIN REGARDING THE BARRIERS TO BOLUS FEEDS CM WILL CONTINUE FOLLOWING FOR DCP
[2024-08-11 16:21] LABS: Glucose, Whole Blood 251 mg/dL (60-115)
[2024-08-11 19:58] VITALS: BP 122/75; PULSE 113; RESP 18; TEMP 37.3; O2SAT 94
[2024-08-11 20:39] LABS: Glucose, Whole Blood 210 mg/dL (60-115)
[2024-08-11] MEDS: Atorvastatin Calcium 10 MG TABLET G-TUBE (21:20)
[2024-08-12] MEDS: Morphine Sulfate Oral Sol 10 MG/5 ML SOLUTION 5 MG G-TUBE ×3 (02:15→12:08)
[2024-08-12 03:40] VITALS: BP 115/63; PULSE 117; RESP 18; TEMP 37.6; O2SAT 92
[2024-08-12 07:47] VITALS: BP 128/76; PULSE 118; RESP 17; TEMP 37.2; O2SAT 94
[2024-08-12 07:48] LABS: Glucose, Whole Blood 304 mg/dL (60-115)
[2024-08-12] MEDS: [UNRECOGNIZED DRUG - OTHER] 1 EACH G-TUBE (08:06)
[2024-08-12] MEDS: Insulin Lispro 100 UNIT/ML 3 ML VIAL SUBCUT ×2 (08:06→12:09)
[2024-08-12] MEDS: Cholecalciferol (Vitamin D3) 25 MCG TABLET G-TUBE (08:06)
[2024-08-12] MEDS: 0.9 % Sodium Chloride Flush 3 ML SYRINGE IVFLUSH (08:06)
[2024-08-12] MEDS: levETIRAcetam Oral Soln 500 MG/5 ML 250 MG G-TUBE (08:06)
[2024-08-12] MEDS: cefTRIAXone sodium 1 GM VIAL IVPUSH (08:07)
[2024-08-12] MEDS: Enoxaparin Sodium 40 MG/0.4 ML SYRINGE SUBCUT (10:49)
[2024-08-12 11:27] LABS: Glucose, Whole Blood 282 mg/dL (60-115)
--- NOTE | 2024-08-12 14:33 | P.DS_ITS ---
DS: Providers Provider Date of Service: 08/12/24 Date of admission: 08/05/24 15:20 Date of discharge: 08/12/24 Primary care physician: LUIS ANTONIO RinconP- Consults: 08/05/24 15:15 Consult to Gastroenterology Routine Consulting Provider: Benjamin Suggs Reason for consultation: pancreatitis, ascites 08/09/24 12:59 Consult to Hematology / Oncology Routine Consulting Provider: [facility] Oncology/Hematology Reason for consultation: esophageal adenocarcinoma, abd pain DS: Diagnosis Discharge Diagnosis (1) Ascites: Status: Acute DS: Summary Hospital Course Hospital Course: HPI From admission H&P: 63M 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 Patient states he has noticed worsening abdominal distention over several weeks. Reports tolerating feeds as usual but intermittently gets nauseous and vomits gastric secretions. Also complaining of epigastric and back pain. Denies fever or chills. In ED CT showed moderate ascites, lipase significantly elevated at 1200. Hospital Course: Patient presented with abdominal pain and was found to have an elevated lipase. Initially he was presumptively treated for acute pancreatitis likely due to Keytruda. He was evaluated by Gastroenterology as well as Oncology. Patient was also noted to have ascites for which she underwent a therapeutic and diagnostic paracentesis. Cultures from the paracentesis have been negative thus far, however his fluid analysis is consistent with SBP. Hence he was treated with IV ceftriaxone and will be discharged home on oral cefuroxime for 5 more days. In regards to his previous tips procedure, gastroenterology felt that this was not the likely cause of his ascites. He will be closely followed via Dr. Vaz office and referred to the performing physician should his TIPS become an issue. His fluid studies have been sent for malignancy evaluation and is pending at the time of his discharge. In regards to the patient's tube feeding, the patient was intolerant of bolus feeding. Hence, he was placed on continuous tube feeds which he has been tolerating. However, the patient and family do not want to continue continuous tube feeds at home despite explanation of his intolerance to bolus feeding. Recommendations are for tube feeding to be continuous, however family has elected for bolus feeding at home. Time Attestation Discharge Coordination Time (in mins): 40 Quality: Safe Use of Opioids Does Pt have an Active Cancer Diagnosis on the Problem List?: Yes Opioid Measure Date for [facility] Report: 07/16/24 Opioid Measure Time for [facility] Report: 07:36 Quality: Stroke Does the patient have a stroke diagnosis?: No Physical Exam Vital Signs: Vital Signs: Last Vital Signs Temp 99.0 F 08/12/24 07:47 Pulse 118 H 08/12/24 07:47 Resp 17 08/12/24 07:47 BP 128/76 08/12/24 07:47 Pulse Ox 94 08/12/24 07:47 O2 Del Method Room Air 08/12/24 07:47 BMI result Body Mass Index 24.4 Const: Other: Awake and alert, oriented x3 No acute distress Lungs clear S1-S2 GI soft, nontender, nondistended, negative fluid thrill Neuro nonfocal DS: Data Data Completed and Pending Completed studies during hospitalization [Text1]: Procedures Excision of Esophagus, Via Natural or Artificial Opening Endoscopic, Diagnostic (06/16/24) Insertion of Feeding Device into Stomach, Open Approach (06/16/24) Transfusion of Nonautologous Platelets into Peripheral Vein, Percutaneous Approach (06/16/24) Pending studies at discharge: Pending at discharge 08/11/24 07:09 Cytology [PTH] Routine Labs on day of discharge: Laboratory Results - last 24 hr 08/11/24 08/11/24 08/12/24 16:18 20:35 07:44 POC Glucose 251 H 210 H 304 H 08/12/24 11:20 POC Glucose 282 H Preliminary micro results at discharge 08/10/24 15:30 Routine Culture - Preliminary Ascites Fluid No growth to date. Anaerobic Culture - Preliminary No growth to date. Discharge Plan Discharge Anticipated Discharge Date/Time: 08/12/24 15:00 Patient Disposition: Home Health Service Discharge Diagnosis: ascites Referrals: Max ADAM [Outside] - 1 Week Benjamin Suggs MD [Physician] - 1 Week Nikhil Gray FNP-GUY [Primary Care Provider] - 1 Week Discharge Medications: New morphine 10 mg/5 mL solution 5 mg PO Q4H PRN (Reason: pain (scale score 7-10)) Qty: 100 0RF Rx Instructions: Partial Fill upon patient request. cefuroxime axetil 500 mg tablet 500 mg feeding tube Q12H Qty: 10 0RF Continued Jardiance 25 mg tablet 25 mg feeding tube DAILY Qty: 90 1RF levetiracetam 100 mg/mL solution 250 mg feeding tube BID metformin 500 mg tablet 500 mg feeding tube BIDWMEAL Qty: 180 0RF atorvastatin 10 mg tablet 10 mg feeding tube BEDTIME Qty: 90 1RF repaglinide 0.5 mg tablet 0.5 mg feeding tube TID Qty: 270 1RF baclofen 10 mg tablet 10 mg feeding tube DAILY PRN (Reason: muscle spasm) 90 Days Qty: 90 0RF cholecalciferol (vitamin D3) [Vitamin D3] 25 mcg (1,000 unit) Tablet 25 mcg feeding tube DAILY Qty: 90 0RF (DME) pen needle, diabetic 31 gauge x 5/16 needle See Rx Instructions subcut QID Qty: 1200 Rx Instructions: As directed (DME) lancets 33 gauge misc See Rx Instructions topical QID Qty: 100 Rx Instructions: As directed Discharge Orders: Discharge Order (Routine); Ordered 08/12/24 Ordered By: Nagi Addison Diet: Advance to usual diet Activity on Discharge: As tolerated Stand Alone Forms: Patient Portal Discharge page Print Language: Singaporean Care Plan Goals: See discharge summary Health Concerns: See discharge summary Plan of Treatment: See discharge summary Assessment: See discharge summary Discharge Date/Time: 08/12/24 15:45
--- NOTE | 2024-08-12 14:35 | MHC.CLN ---
F/U PATIENT NOT TOLERATING BOUS TUBE FEEDING. FEEDING CHANGED TO CONTINUOUS AND IS TOLERATING. RECOMMEND CONTINUE GLUCERNA 1.0 AT 80 ML PER HOUR PLUS FREE WATER FLUSHES 240 ML Q 8 HOURS TO PROVIDE: 1920 KCALS (28.5 KCALS/KG IBW), 80 G PROTEIN (1.2 G/KG), 2333 ML TOTAL FREE WATER FROM FORMULA AND FLUSHES (34.7 ML/KG). FOLLOW FOR TUBE FEED TOLERANCE.
--- NOTE | 2024-08-12 14:51 | MHC.CM.PN ---
PT AND ARE STILL REFUSING CONTINUOUS FEEDS MD HAS HAD MULTIPLE CONVERSATIONS WITH THEM THEY ARE AWARE [facility] CAN PROVIDE THE NECESSARY EQUIPMENT IF THEY DECIDE THEY ARE AGREEABLE PT CLEARED TO DC HOME TODAY WITH RESUMPTION OF [facility] HI AND [facility] WILL TRANSPORT
--- NOTE | 2024-08-12 15:53 | PM.GIPN ---
Subjective Subjective Date of Service: 08/12/24 Interval History: no vomiting He is still having back pain He is concerned about pain control Critical Care Time (minutes): 0 Physical Exam Vital Signs: Vital Signs: Last Vital Signs Temp 99.0 F 08/12/24 07:47 Pulse 118 H 08/12/24 07:47 Resp 17 08/12/24 07:47 BP 128/76 08/12/24 07:47 Pulse Ox 94 08/12/24 07:47 O2 Del Method Room Air 08/12/24 07:47 BMI result Body Mass Index 24.4 Const: General: tired appearing GI: Other: abdomen with some distension, nontender Objective Data Labs 08/11/24 05:40 08/11/24 05:40 Labs: Laboratory Results - last 24 hr 08/11/24 08/11/24 08/12/24 16:18 20:35 07:44 POC Glucose 251 H 210 H 304 H 08/12/24 11:20 POC Glucose 282 H Microbiology Microbiology Results: Microbiology 08/10/24 15:30 Ascites Fluid Gram Stain - Final 08/10/24 15:30 Ascites Fluid Routine Culture - Preliminary No growth to date. 08/10/24 15:30 Ascites Fluid Anaerobic Culture - Preliminary No growth to date. 08/05/24 15:55 Blood - Venous Blood Culture - Final No growth after 5 days. 08/05/24 15:47 Blood - Venous Blood Culture - Final No growth after 5 days. Procedures Date of Service Date of Service: 08/12/24 Progress Note: A&P Assessment and plan (1) Ascites: Status: Acute Assessment and Plan: continue abx for high anc in ascites fluid cx neg so far cytology pending My office will make referral to Dr Hairston at [facility] for evaluation of tips. He may need lasix/aldactone +/- periodic paracentesis, pending clincal course. Time Spent With Patient Time: Total time managing care of this patient today ____ minutes. Quality Stroke Does the patient have a stroke diagnosis?: No VTE Prior VTE?: No VTE Risk Level:: Medical - moderate - high VTE Device Contraindication: Treatment Not Indicated VTE Drug Contraindication: N/A - Med Ordered
--- NOTE | 2024-08-16 11:12 | MHC.CM.PN ---
PER BELINDA REQUEST FROM [facility] DC SUMMARY SENT THRU [facility] TO [facility] RE 08/12 DC
== END 2024-08-12 15:45 | disposition home health service (06) | DRG 372 ==
LOC: HO.ED 15:20 → HO.EDOVER 15:24 → HO.S3 08-06 15:47 → HO.EDOVER 08-06 15:56 → HO.S3 08-06 17:31
PROVIDERS: Physician Assistant; Physician Assistant Surgical; Radiology Diagnostic Radiology; Admitting Provider Internal Medicine; Emergency Provider Emergency Medicine; PCP Nurse Practitioner Family; Visit Provider Family Medicine
DX: K65.2 Spontaneous bacterial peritonitis (principal); C15.5 Malignant neoplasm of lower third of esophagus; R18.8 Other ascites; R45.851 Suicidal ideations; Z66 Do not resuscitate; T45.1X5A Adverse effect of antineoplastic and immunosuppressive drugs, initial encounter; K74.69 Other cirrhosis of liver; G40.909 Epilepsy, unspecified, not intractable, without status epilepticus; E11.42 Type 2 diabetes mellitus with diabetic polyneuropathy; Z93.1 Gastrostomy status; Z87.891 Personal history of nicotine dependence; Z79.84 Long term (current) use of oral hypoglycemic drugs; Z79.899 Other long term (current) drug therapy
CPT/HCPCS: 36415; 49083; 72100; 74177; 80048; 80053; 80076; 80143; 80179; 80307; 81001; 82042; 82150; 82947; 83605; 83690; 83735; 84157; 84484; 85025; 85027; 85610; 87040; 87070; 87073; 87205; 88112; 88305; 89051; 93005; 93975; 99285; J0696; J1171; J1650; J2003; J2405; J2765; J7120; Q9967

== ENCOUNTER → 2024-08-05 11:20 | Outpatient (BNV) | payer OTHER, SELFPAY | PROVIDERS: Emergency Provider Emergency Medicine; PCP Nurse Practitioner Family; Visit Provider Radiology Diagnostic Radiology | DX: K74.60 Unspecified cirrhosis of liver (principal); K22.89 Other specified disease of esophagus; R16.1 Splenomegaly, not elsewhere classified; K85.90 Acute pancreatitis without necrosis or infection, unspecified; R18.8 Other ascites | CPT/HCPCS: 74177; 93975 ==

== ENCOUNTER → 2024-08-05 11:21 | Outpatient (BNV) | payer OTHER, SELFPAY | PROVIDERS: Emergency Provider Emergency Medicine; PCP Nurse Practitioner Family; Visit Provider Internal Medicine Cardiovascular Disease | DX: R00.0 Tachycardia, unspecified (principal); I25.2 Old myocardial infarction | CPT/HCPCS: 93010 ==

== ENCOUNTER 2024-08-05 15:20 | Outpatient (BNV) | payer OTHER, SELFPAY | END 2024-08-10 07:00 | PROVIDERS: Admitting Provider Internal Medicine; Emergency Provider Emergency Medicine; PCP Nurse Practitioner Family; Visit Provider Physician Assistant Surgical | DX: K85.90 Acute pancreatitis without necrosis or infection, unspecified (principal) | CPT/HCPCS: 49083 ==

== ENCOUNTER 2024-08-05 15:20 | Outpatient (BNV) | payer OTHER, SELFPAY | END 2024-08-08 10:10 | PROVIDERS: Admitting Provider Internal Medicine; Emergency Provider Emergency Medicine; PCP Nurse Practitioner Family; Visit Provider Radiology Diagnostic Radiology | DX: M54.50 Low back pain, unspecified (principal) | CPT/HCPCS: 72100 ==

== ENCOUNTER → 2024-08-05 15:20 | Outpatient (BNV) | payer OTHER, SELFPAY | PROVIDERS: Admitting Provider Internal Medicine; Emergency Provider Emergency Medicine; PCP Nurse Practitioner Family; Visit Provider Internal Medicine | DX: C15.5 Malignant neoplasm of lower third of esophagus (principal); K85.90 Acute pancreatitis without necrosis or infection, unspecified; K70.31 Alcoholic cirrhosis of liver with ascites; E11.9 Type 2 diabetes mellitus without complications | CPT/HCPCS: 99223; 99232; 99233; 99239 ==

== ENCOUNTER → 2024-08-05 15:20 | Outpatient (BNV) | payer OTHER, SELFPAY | PROVIDERS: Admitting Provider Internal Medicine; Emergency Provider Emergency Medicine; PCP Nurse Practitioner Family; Visit Provider Internal Medicine Medical Oncology | DX: R18.8 Other ascites (principal); K22.89 Other specified disease of esophagus | CPT/HCPCS: 99222 ==

== ENCOUNTER 2024-08-16 06:56 | Day surgery (SDC) | payer OTHER, SELFPAY ==
--- OUTSIDE RECORDS SUMMARY | 2024-08-15 15:27 | XMS_ITS ---
Author Organization [facility] Address [address] [place] [address] Care Team Providers Care S3B Multi Sensor Operator Name Role Phone SAÚL BERKOWITZ Primary Care Provider Rahul Suggs Jr, Benjamin Chilel [phone] REASON FOR VISIT patient going to ER Encounters Encounter Location Date Provider Diagnosis [facility] [address] [place] [address] 06/16/2024 Benjamin Suggs Jr PLAN OF TREATMENT Next Appt Details Provider Name:Benjamin loredo Jr, 09/15/2024 01:55:00 PM, [address], [address], [place], [address],
--- OUTSIDE RECORDS SUMMARY | 2024-08-15 15:27 | XMS_ITS ---
Author Organization [facility] Address [address] [place] [address] Care Team Providers Care Train Brakeman Name Role Phone SAÚL BERKOWITZ Primary Care Provider Rahul Suggs Jr, Benjamin Chilel [phone] REASON FOR VISIT wt loss,esophageal ca Encounters Encounter Location Date Provider Diagnosis [facility] [place] [address] [place], [place] [id number] 06/17/2024 Benjamin Suggs Jr PLAN OF TREATMENT Next Appt Details Provider Name:Benjamin loredo Jr, 09/15/2024 01:55:00 PM, [address], [address], [place], [address],
--- OUTSIDE RECORDS SUMMARY | 2024-08-15 15:27 | XMS_ITS | Encounter Summary ---
Author Organization [facility] Address [address] [place] [address] Care Team Providers Care Drier Tender Naphthalene Name Role Phone Nikhil Gray MEDICAL STAFF COORDINATOR Primary Care Provider Encounter Details Date Type Department Care Team (Late st Contact Info) Description 07/19/2024 Telephone [facility] Radiation Oncology [address] [facility] [address] [place] [address] May Qureshi [place] Social History [...] on filedocumented in this encounter Care Teams Drier Tender Naphthalene Relationship Specialty Start Date End Date Nikhil Gray NP [address] [facility] [place] PCP - General Family Medicine 07/19/24 documented as of this encounter
--- OUTSIDE RECORDS SUMMARY | 2024-08-15 15:27 | XMS_ITS | Encounter Summary ---
Author Organization [facility] Address [address] [place] [address] Care Team Providers Care Fbi Investigator Name Role Phone RodolfoNikhil titus Alma CHAU Primary Care Provider Encounter Details Date Type Department Care Team (Latest Contact Info) Description 07/26/2024 12:02 PM EST - 07/26/2024 11:59 PM EST Hospital Encounter [facility] Radiation Oncology [address] [address] Discharge Disposition: Home or Self [...] TIMES A DAY FOR 90 DAYS 5 levETIRAcetam (KEPPRA) 250 mg tablet Take 1 [...] 2 TIMES PER DAY WITH MEALS 5 metFORMIN XR (GLUCOPHAGE-XR) 500 mg 24 hr tablet Take 1 tablet (500 mg total) by mouth 2 (two) times a day. 4 nadoloL (CORGARD) 20 mg tablet Take 1 tablet (20 mg total) by mouth 1 (one) time each day. 4 ondansetron ODT (ZOFRAN-ODT) 8 mg disintegrating tablet Dissolve 1 tablet (8 mg total) on top of the tongue every 8 (eight) hours if needed for nausea or vomiting. oxyCODONE (ROXICODONE) 5 mg immediate release tablet TAKE 1 TABLET BY MOUTH TWICE A DAY NEEDED FOR BREAKTHROUGH PAIN 5 oxyCODONE (ROXICODONE) 5 mg/5 mL solution TAKE 5ML'S BY MOUTH EVERY 6 HOURS NEEDED FOR PAIN 5 pantoprazole (PROTONIX) 40 mg EC tablet Take 1 tablet (40 mg total) by mouth 1 (one) time each day before breakfast. Do not crush, chew, or split. documented as of this encounter Discharge Disposition Disposition Code Departure Means Destination Home or Self Care documented in this encounter Plan of Treatment Not on file documented as of this encounter Visit Diagnoses Not on filedocumented in this encounter Care Teams Fbi Investigator Relationship Specialty Start Date End Date Nikhil Gray NP [address] [facility] MARTITA Francois PCP - General Family Medicine 07/19/24 documented as of this encounter
--- OUTSIDE RECORDS SUMMARY | 2024-08-15 15:27 | XMS_ITS | Encounter Summary ---
Author Organization [facility] Address [address] [place] [address] Care Team Providers Care Maintenance Shop Laborer Name Role Phone Nikhil Gray NP Primary Care Provider + [phone] Reason for Referral * Consultation (Routine) - Closed Specialty Diagnoses / Procedures Referred By Supriya t Referred To Contact Radiation Oncology Diagnoses Esophageal cancer (CMS/HCC) Harjit Crawford MD [address] [place] [address] ATTN: HEMATOLOGY/ONCOLOGY [place] Phone: tel: fax: [facility] Radiation Oncology [address] [place] [phone] Phone: tel: fax: Referral ID Status Reason Start Date Expiration Date V isits Requested Visits Authorized [id number] Closed Specialty Services Required 07/19/2024 07/19/2025 1 1 Reason for Visit * Reason Comments Consult * Consultation (Routine) - Closed Specialty Diagnoses / Procedures Referred By Supriya t Referred To Contact Radiation Oncology Diagnoses Esophageal cancer (CMS/HCC) Harjit Crawford MD [address] [place] [address] ATTN: HEMATOLOGY/ONCOLOGY [place] Phone: tel: fax: [facility] Radiation Oncology [address] [place] [phone] Phone: tel: fax: Referral ID Status Reason Start Date Expiration Date V isits Requested Visits Authorized [id number] Closed Specialty Services Required 07/19/2024 07/19/2025 1 1 Encounter Details Date Type Department Care Team (Latest Contact Info) Description 07/26/2024 12:24 PM EST - 07/26/2024 11:59 PM EST Hospital Encounter [facility] Radiation Oncology [address] [id number] Valentine Santillan MD [address] [place] [address] Adenocarcinoma of esophagus (CMS/HCC) (Primary Dx); Head [...] / procedure notes / pathology from recent [facility] admission (06/16/24 - 06/24/24). Also requesting ER [...] from the original note were not included. [address] [phone] Radiation Oncology Outpatient Consult Staff Physician: Valentine [...] and recent May 2024 CT scan at [place] it appears his recurrent disease is in [...] Oncological History: 06/16/2024 - 06/24/2024 Hospitalized at [facility] for odynophagia and dysphagia. 06/16/2024 CT Abdomen and pelvis 06/17/[address] Suggs 06/20/[address] Sahu 07/11/[address] Crawford. Currently: Doing 7 cartons via feeding tube. FU Dr. Crawford TBD, was supposed to be today but cancelled due to today's appt. Hardly any PO intake. SH: lives with in [place], [place]. PRIOR RT: With Dr. 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 added in this encounter Care Teams Maintenance Shop Laborer Relationship Specialty Start Date End Date Nikhil Gray NP [address] [place], [place] PCP - General Family Medicine 07/19/24 documented as of this encounter
--- OUTSIDE RECORDS SUMMARY | 2024-08-15 15:27 | XMS_ITS | Clinical Summary ---
Author Organization [facility] Address [address] [place] [address] Phone Care Team Providers Care Internet Marketing Coordinator Name Role Phone Nikhil Gray NP Primary [...] - 07/26/2024 11:59 PM EST Hospital Encounter [facility] Radiation Oncology [address] [facility] 2nd [place] [phone] Valentine Santillan MD Adenocarcinoma of esophagus (CMS/HCC) (Primary Dx); Head and neck cancer (CMS/HCC) Discharge Disposition: Home or Self Care 07/26/2024 12:02 PM EST - 07/26/2024 11:59 PM EST Hospital Encounter [facility] Radiation Oncology [address] [address] Discharge Disposition: Home or Self Care 07/19/2024 Telephone [facility] Radiation Oncology [address] [address] May Qureshi MA from Last 3 Months Surgical History Surgery Date Site/Laterality Comments G-TUBE PLACE PERCUTANEOUS BACK SURGERY N/A T.I.P.S PROCEDURE LEG SURGERY Right lower leg fracture with repair Medical History Medical History Date Comments Esophageal cancer (CMS/HCC) Diabetes mellitus ([facility]/HCC) Hyperlipidemia Stroke ([facility]/HCC) Family History Medical History Relation Name Comments [...] complete this topic Insurance MEDICAID - [facility] Member Subscriber Plan / Payer (Ef fective 2020-Present) Name:Tj Granda Relation to Subscriber:Self Name:Tj Granda Payer ID:[id number] Group ID:[id number] Type:Not on file Address: [address] [place] [address] Care Teams Internet Marketing Coordinator Relationship Specialty Start Date End Date Nikhil Gray NP [address] [place], [place] PCP - General Family Medicine 07/19/24
--- OUTSIDE RECORDS SUMMARY | 2024-08-15 15:28 | XMS_ITS ---
Author Organization [facility] Address [address] [place] [address] Care Team Providers Care Vacuum Caster Name Role Phone SAÚL BERKOWITZ Primary Care Provider Rahul Suggs Jr, Benjamin Chilel [phone] REASON FOR VISIT referral - left msg -08/15 Encounters Encounter Location Date Provider Diagnosis [facility] [address] [place] [address] 08/12/2024 Benjamin Suggs Jr PLAN OF TREATMENT Next Appt Details Provider Name:Benjamin loredo Jr, 09/15/2024 01:55:00 PM, [address] [facility] [address] [facility], [address], [place], [address],
[2024-08-16] VITALS (7 sets, daily range): BP systolic 103–123; BP diastolic 74–81; PULSE 89–116; RESP 11–114; TEMP 36.4–36.6; O2SAT 97–100; BMI 26.3
--- NOTE | ~2024-08-16 | US_ITS ---
Ultrasound paracentesis History: Ascites. Risks and benefits and possible complications were discussed with the patient and consent form was signed. A safe pocket of ascitic fluid was identified using ultrasound guidance, and the overlying skin was marked. The abdomen prepped and draped in sterile fashion. 1% lidocaine was used as a local anesthetic. Using ultrasound guidance, a 5 fr catheter was placed into the ascitic pocket. 2.0 liters of charlene fluid was removed passively. The catheter was then removed. A few b2b outside sales representative images from before and after the examination were obtained. The procedure was performed by Douglas Alford PA-C and supervised by Dr. Herrera. US/US paracentesis abd w/image Impression: Ultrasound-guided paracentesis as described above. No immediate complications Electronically signed by: Cheo Herrera MD 08/19/2024 05:07 PM [facility]
[2024-08-16 07:50] LABS: Glucose, Whole Blood 370 mg/dL (60-115)
--- NOTE | 2024-08-16 07:56 | PC.NURSE ---
poc over 300 okay per pa
[2024-08-16] MEDS: Lidocaine HCl 1 % MPF 5 ML VIAL SUBCUT (09:12)
== END 2024-08-16 09:30 | disposition home or self-care (01) ==
LOC: HO.SSS 06:57
PROVIDERS: Physician Assistant Surgical; PCP Nurse Practitioner Family; Visit Provider Internal Medicine Medical Oncology
DX: R18.8 Other ascites (principal); C15.5 Malignant neoplasm of lower third of esophagus; K85.90 Acute pancreatitis without necrosis or infection, unspecified; K74.60 Unspecified cirrhosis of liver; B19.20 Unspecified viral hepatitis C without hepatic coma; E11.9 Type 2 diabetes mellitus without complications; Z98.890 Other specified postprocedural states; Z86.73 Personal history of transient ischemic attack (TIA), and cerebral infarction without residual deficits
CPT/HCPCS: 49083; 82947; J2003

== ENCOUNTER → 2024-08-16 08:14 | Outpatient (BNV) | payer OTHER, SELFPAY | PROVIDERS: PCP Nurse Practitioner Family; Visit Provider Physician Assistant Surgical | DX: R18.8 Other ascites (principal) | CPT/HCPCS: 49083 ==

== ENCOUNTER 2024-08-19 09:00 | Outpatient (RCR) | payer OTHER, SELFPAY ==
[2020-04-06 13:09] VITALS: BP 134/69; PULSE 68; RESP 20; TEMP 36.5; O2SAT 99
[2020-04-06 13:11] VITALS: BMI 31.1
[2020-04-06 13:22] LABS: Basophils Percent Auto 0.7 % (0-2); Hemoglobin 16.5 g/dl (14.0-18.0); PLT CLUMP 1; SCAN SMEAR FLAG 1
[2020-04-06 13:24] LABS: Eosinophils Absolute Auto 0.3 X10*3/uL (0.0-0.4); Eosinophils Percent Auto 4.6 % (0-4); Hematocrit 46.9 % (42-52); Imm Gran Abs Auto 0.01 X10*3/uL (0.00-0.03); Imm Gran Pct Auto 0.2 % (0.0-0.4); Lymphocytes Absolute Auto 1.5 X10*3/uL (1.2-4.9); Mean Corpuscular HGB Conc 35.2 g/dl (31.0-36.0); Mean Corpuscular Hemoglobin 32.4 pg (27.0-33.0); Mean Corpuscular Volume 92.1 fL (80-98); Mean Platelet Volume 9.8 fL (9.4-12.4); Monocytes Absolute Auto 0.5 X10*3/uL (0.1-1.2); Monocytes Percent Auto 8.8 % (2-11); Neutrophils Absolute Auto 3.4 X10*3/uL (2.0-8.3); Neutrophils Percent Auto 59.7 % (45-73); Platelet Count 74 X10*3/uL (160-400); Red Blood Count 5.09 X10*6/uL (4.60-5.80); Red Cell Distribution Width 14.8 % (11.0-16.0); White Blood Count 5.7 X10*3/uL (4.8-10.8)
--- NOTE | 2020-04-06 13:45 | P.PNHO_ITS ---
Medical Summary - Medical Summary Chief complaint: follow-up for: Recurrent adenocarcinoma of the esophagus. Medical Summary: Diagnosis: Adenocarcinoma of the esophagus, of the lower end. Current Therapy: Combined modality therapy with radiation along with weekly carboplatin and Taxol, had 4 weeks, Completed 08/21/2017. Now with disease recurrence, seen at the EG junction on endoscopy on October 27. Interval History Interval history: This is a pleasant 59-year-old gentleman, here for a follow-up visit. He is doing very well. He denies any symptoms of dysphagia or odynophagia. He has no problems swallowing. He is eating well. No headache no dizziness. He denies easy fatigability, he is very active around the house. He recently by built a fence, around his yard. Denies chest pain or trouble breathing. No cough no sputum. He denies abdominal pain nausea vomiting heartburn indigestion. Bowels are working without any gross blood in it. He enjoys a good appetite. He has lost a little weight. He is in good spirits. Rest of the review of systems is unremarkable. Review of Systems - Constitutional Reports system reviewed and no additional complaints, except as documented, Denies fatigue - Eyes Reports system reviewed and no additional complaints, except as documented - ENT Reports system reviewed and no additional complaints, except as documented, Denies dysphagia - Cardiovascular Reports system reviewed and no additional complaints, except as documented - Respiratory Reports no additional respiratory complaints, Denies chest congestion - Gastrointestinal Reports system reviewed and no additional complaints, except as documented, Denies abdominal pain, Denies diarrhea, Denies nausea, Denies vomiting - Genitourinary Genitourinary: Reports no additional male genitourinary complaints - Musculoskeletal Reports system reviewed and no additional complaints, except as documented - Integumentary/Breasts Skin/Breast: Reports no additional skin complaints - Neurologic Reports system reviewed and no additional complaints, except as documented - Psychiatric Reports system reviewed and no additional complaints, except as documented [facility] Medical History: Medical History (Last Updated 04/06/20 @ 09:39 by Kathy Cruz RN) Adenocarcinoma of lower esophagus Alcoholic cirrhosis Anemia Constipation Diabetes Elevated ferritin Esophageal varices Esophagus, carcinoma Hepatic cirrhosis Hepatitis C Hx of splenomegaly Male circumcision Seizure disorder Stroke Thrombocytopenia Home Medications and Allergies Home Medications Medication Instructions Recorded Confirmed Type baclofen 0.5 tab PO TID 04/06/20 04/06/20 History cholecalciferol (vitamin D3) 25 mcg PO DAILY 04/06/20 04/06/20 History [Vitamin D3] docusate sodium 1 cap PO DAILY PRN 04/06/20 04/06/20 History empagliflozin [Jardiance] 1 tab PO DAILY 04/06/20 04/06/20 History insulin glargine [Lantus Solostar 15 unit SUBCUT QPM 04/06/20 04/06/20 History U-100 Insulin] lactulose 15 ml PO TID 04/06/20 04/06/20 History levetiracetam 1,000 tab PO BID 04/06/20 04/06/20 History nadolol 1 tab PO DAILY 04/06/20 04/06/20 History pantoprazole 1 tab PO DAILY 04/06/20 04/06/20 History Allergies Allergy/AdvReac Type Severity Reaction Status Date / Time No Known Allergies Allergy Verified 04/06/20 09:37 Exam Vital signs: Vital Signs Temp 97.7 F 04/06/20 13:09 Pulse 68 04/06/20 13:09 Resp 20 04/06/20 13:09 BP 134/69 04/06/20 13:09 Pulse Ox 99 04/06/20 13:09 Intake & Output 04/05/20 04/06/20 04/06/20 18:59 06:59 18:59 Other: Weight 90.1 kg Weight 90.1 kg Body Mass Index 31.1 - Constitutional Present: no acute distress - Routine HEENT Exam Head: Present: normal inspection ENT: Present: mucous membranes moist - Routine Neck Exam Present: full ROM - Routine Chest/Breast/Axilla Exam Breast: Present: Normal Exam - Routine Respiratory Exam Present: CTAB - Routine Cardiovascular Exam Cardiovascular: Present: RRR, S1, S2 - Routine Abdominal Exam Present: soft, nontender - Routine Exam Perineum Description: Normal - Routine Extremities Exam Present: nontender - Routine Back/Spine/Pelvis Exam Back/Spine: Present: full ROM - Routine Skin Exam Present: intact - Routine Neurological Exam Present: alert, oriented X3 - Routine Psychiatric Exam Present: normal affect Data - Labs CBC & Chem 7: 04/06/20 13:04 04/06/20 13:04 Labs: Laboratory Results - last 24 hr 04/06/20 13:04 WBC 5.7 RBC 5.09 Hgb 16.5 Hct 46.9 MCV 92.1 MCH 32.4 MCHC 35.2 RDW 14.8 Plt Count 74 L MPV 9.8 Immature Gran % (Auto) 0.2 Neut % (Auto) 59.7 Lymph % (Auto) 26.0 [place] % (Auto) 8.8 Eos % (Auto) 4.6 H Baso % (Auto) 0.7 Lymph # (Auto) 1.5 [place] # (Auto) 0.5 Eos # (Auto) 0.3 Baso # (Auto) 0.0 Abs Immat Gran (auto) 0.01 Absolute Neuts (auto) 3.4 Absolute Nucleated RBC 0.000 Nucleated RBC % (auto) 0.0 Progress Note: A/P (1) Adenocarcinoma of lower esophagus Status: Acute Assessment and plan: This is a pleasant, 59 year-old gentleman with history of Hepatitis C, E sophageal Adenocarcinoma. He completed combined modality therapy with radiation plus chemotherapy, in August of 2017. CT chest with contrast performed 10/22/17 showed wall thickening of the distal thoracic esophagus, enlarged paraesophageal varices, no enlarged hilar or mediastinal lymph nodes, enlarged spleen and mild upper abdominal lymphadenopathy, largest lymph node in the periportal region measuring 1.5x1.3 cm. Also a nonspecific 1 cm lucent lesion in the superior endplate of T7 would whole-body, ? metastasis. Several nonspecific lytic lesions in the thoracic and visualized upper lumbar vertebral bodies questionable for possible metastatic disease. He denies any dysphagia or odynophagia. Routine endoscopy reveals disease recurrence, with a 2 cm mass just below the EG junction. Pathology confirms: Moderately differentiated Adenocarcinoma. A PET scan, was denied. CT scan of the chest from November 24 revealed: 1. No pulmonary nodule, mass or groundglass opacity is seen. 2. There is no thoracic lymphadenopathy. 3. There is are cirrhotic changes of the liver redemonstrated, without focal mass seen. 4. There is interim placement of a portocaval shunt. The splenic and mesenteric veins appear patent. Upper abdominal varices are less pronounced than seen. 5. There is stable wall thickening of the gastroesophageal junction. 6. No abdominopelvic metastasis, free fluid or lymphadenopathy is seen. Unfortunately, he is really not a surgical candidate. He has already had radiation therapy so that is not an option. He underwent an endoscopic ultrasound to evaluate for the thickness of the tumor, and possible adenopathy. This was done on January [address] Elizabet Gilliam. Findings: Endoscopy revealed a 1.5-2 cm GE junction mass, that appeared to be semi pedunculated. Evidence of mild portal hypertensive gastropathy in the stomach. Two small polyps noted in the stomach 1 in the gastric body and other just proximal to the pyloric sphincter. Polyps appeared reactive. Endoscopic ultrasound: Tumor was hypoechoic 1.8 x 1.4 cm, likely T1b, and 0. The MP was intact. Small varices noted in the submucosa. No aortic nor vertebral invasion. Normal celiac takeoff. No obvious lesion in the liver. Normal appearing pancreatic duct. The plan initially was to proceed with photodynamic therapy. That will help to avoid systemic chemotherapy. He has seen Dr. Lucio Mo, at [facility], a few weeks ago. His note mentions: Endosonographically, stage T1b. This is a difficult situation. Locally recurrent GE junction adenocarcinoma already subjected to 50 Gy of radiation. He has no regional nor distant metastatic disease. Ideally surgical resection should be done but his comorbidities that too significant to allow for a safe surgery. Endoscopic submucous ectomy still relatively early in the evolution of the technique and since this lesions pans 2.5 cm in longitudinal dimension that may be too much for endoscopic resection. We have to consider other local ablative modalities to take care of this recurrence. He was given a couple of options: 1. Photodynamic therapy. 2. Brachytherapy. He would favor brachy therapy, since his visceral disease is worrisome, in regards to the bleeding from his variceal disease. That would be more of a risk with photodynamic therapy. (he is not in favor of having to hide from light for 4-6 weeks if he undergoes photodynamic therapy.) Overall the safety profile of brachytherapy would be higher than photodynamic therapy. It also has a better track record. PLAN: I have called the Radiation Oncology Department at [facility] to expedite his appointment for brachy therapy there. D/W Radiation therapist at [facility]. They are recommending re-irradiation. I discussed with Dr. Sarmiento at [facility], to set it up here, for his convenience. His appointment is on April 12 at 10:30. He will return in 1 month for a follow-up visit. Thank you, CC: Dr. Gray. Dr. Nikki Acevedo. Dr. Suggs. Dr. Mo. ADDENDUM: . - Time Spent With Patient Total time spent is greater than 50% in coordination of care (as documented) at patient's floor/unit and/or counseling patient: 25 - 35 minutes
[2020-04-06 13:47] LABS: Alanine Aminotransferase 27 U/L (0-40); Albumin Level 3.7 g/dL (3.5-5.0); Alkaline Phosphatase 122 U/L (39-117); Anion Gap 11 (12-20); Aspartate Amino Transferase 34 U/L (5-37); Bilirubin Total 2.2 mg/dL (0.0-1.0); Blood Urea Nitrogen 14 mg/dL (9-16); Calcium 8.9 mg/dL (8.4-10.2); Carbon Dioxide 28 mmol/L (22-29); Chloride 107 mmol/L (96-108); Creatinine Clr Calc Pharmacy 93.5; Estimated Glomerular Filt Rate > 60; Glucose Random 189 mg/dL (60-115); Potassium 4.6 mmol/l (3.3-5.1); Sodium 141 mmol/L (135-145); Total Protein 7.1 g/dL (6.5-8.0)
[2020-05-10 11:38] VITALS: BP 113/69; PULSE 76; RESP 14; TEMP 36.8; O2SAT 98; BMI 30.9
[2020-05-10 11:41] LABS: Mean Corpuscular Hemoglobin 32.7 pg (27.0-33.0); Red Cell Distribution Width 14.8 % (11.0-16.0)
[2020-05-10 11:42] LABS: Basophils Absolute Auto 0.1 X10*3/uL (0.0-0.2); Imm Gran Abs Auto 0.01 X10*3/uL (0.00-0.03); Imm Gran Pct Auto 0.2 % (0.0-0.4); MANUAL DIFF FLAG SCAN; Mean Platelet Volume 9.8 fL (9.4-12.4); PLT CLUMP 1; SCAN SMEAR FLAG 1
[2020-05-10 11:43] LABS: Eosinophils Absolute Auto 0.2 X10*3/uL (0.0-0.4); Eosinophils Percent Auto 3.1 % (0-4); Hematocrit 45.5 % (42-52); Hemoglobin 16.1 g/dl (14.0-18.0); Lymphocytes Absolute Auto 1.4 X10*3/uL (1.2-4.9); Lymphocytes Percent Auto 22.2 % (20-40); Mean Corpuscular HGB Conc 35.4 g/dl (31.0-36.0); Mean Corpuscular Volume 92.3 fL (80-98); Monocytes Absolute Auto 0.6 X10*3/uL (0.1-1.2); Monocytes Percent Auto 9.2 % (2-11); Neutrophils Absolute Auto 3.9 X10*3/uL (2.0-8.3); Neutrophils Percent Auto 64.3 % (45-73); Red Blood Count 4.93 X10*6/uL (4.60-5.80); White Blood Count 6.1 X10*3/uL (4.8-10.8)
[2020-05-10 11:44] LABS: Platelet Count 91 X10*3/uL (160-400)
[2020-05-10 12:15] LABS: Alanine Aminotransferase 24 U/L (0-40); Albumin Level 3.3 g/dL (3.5-5.0); Alkaline Phosphatase 133 U/L (39-117); Anion Gap 10 (12-20); Aspartate Amino Transferase 30 U/L (5-37); Bilirubin Total 1.2 mg/dL (0.0-1.0); Blood Urea Nitrogen 11 mg/dL (9-16); Calcium 9.1 mg/dL (8.4-10.2); Carbon Dioxide 28 mmol/L (22-29); Chloride 109 mmol/L (96-108); Creatinine Clr Calc Pharmacy 82.4; Estimated Glomerular Filt Rate > 60; Glucose Random 323 mg/dL (60-115); Potassium 4.3 mmol/l (3.3-5.1); Sodium 143 mmol/L (135-145); Total Protein 6.6 g/dL (6.5-8.0)
--- NOTE | 2020-05-10 12:29 | PM.HEMONCPN ---
Medical Summary - Medical Summary Chief complaint: follow-up for recurrent cancer of the esophagus. Medical Summary: Diagnosis: Adenocarcinoma of the esophagus, of the lower end. Current Therapy: 1. Combined modality therapy with radiation along with weekly carboplatin and Taxol, had 4 weeks, Completed 08/21/2017. 2. Now with disease recurrence, seen at the EG junction on endoscopy on October 27. to receive re- radiation. Interval History Interval history: This is a pleasant 59-year-old gentleman, here for a follow-up visit. He is doing very well. He has no problems swallowing. He denies any symptoms of dysphagia or odynophagia. He is eating well. No headache no dizziness. He denies easy fatigability, he is very active around the house. He recently by built a fence, around his yard. Denies chest pain or trouble breathing. No cough no sputum. He denies abdominal pain nausea vomiting heartburn indigestion. Bowels are working without any gross blood in it. He enjoys a good appetite. He has lost a little weight. He is in good spirits. Rest of the review of systems is unremarkable. Review of Systems - Constitutional Reports system reviewed and no additional complaints, except as documented, Denies fatigue, Denies fever(s) - Eyes Reports system reviewed and no additional complaints, except as documented - ENT Reports system reviewed and no additional complaints, except as documented - Cardiovascular Reports system reviewed and no additional complaints, except as documented - Respiratory Reports no additional respiratory complaints - Gastrointestinal Reports system reviewed and no additional complaints, except as documented - Genitourinary Genitourinary: Reports no additional male genitourinary complaints - Musculoskeletal Reports system reviewed and no additional complaints, except as documented - Integumentary/Breasts Skin/Breast: Reports no additional skin complaints - Neurologic Reports system reviewed and no additional complaints, except as documented - Psychiatric Reports system reviewed and no additional complaints, except as documented - Endocrine Reports no additional endocrine complaints - Hematologic/Lymphatic Reports system reviewed and no additional complaints, except as documented - Allergic/Immunologic Reports system reviewed and no additional complaints, except as documented PMF[facility] Medical History: Medical History (Last Reviewed 04/12/20 @ 13:24 by JORGE LUIS Reynoso-C) Adenocarcinoma of lower esophagus Alcoholic cirrhosis Anemia Constipation Diabetes Elevated ferritin Esophageal varices Esophagus, carcinoma Hepatic cirrhosis Hepatitis C Hx of splenomegaly Hyperlipidemia LDL goal <70 Male circumcision Seizure disorder Stroke Thrombocytopenia Type 2 diabetes mellitus with diabetic polyneuropathy Type 2 diabetes mellitus with hyperglycemia Functional capacity: independent ambulation Patient : No Family History: Family History (Last Reviewed 04/12/20 @ 13:24 by KEISHA Reynoso) Father No problems noted. Mother Diabetes mellitus Surgical History: Surgical History (Last Reviewed 04/12/20 @ 13:24 by KEISHA Reynoso) Hx of colonoscopy Hx of endoscopy Smoking status: Former smoker Home Medications and Allergies Home Medications Medication Instructions Recorded Confirmed Type cholecalciferol (vitamin D3) 25 mcg PO DAILY 04/06/20 04/17/20 History [Vitamin D3] docusate sodium 1 cap PO DAILY PRN 04/06/20 04/17/20 History empagliflozin [Jardiance] 1 tab PO DAILY 04/06/20 04/17/20 History lactulose 15 ml PO TID 04/06/20 04/17/20 History nadolol 1 tab PO DAILY 04/06/20 04/17/20 History pantoprazole 1 tab PO DAILY 04/06/20 04/17/20 History levetiracetam 500 mg tablet 500 mg PO TID tab 04/12/20 05/10/20 History Allergies Allergy/AdvReac Type Severity Reaction Status Date / Time No Known Allergies Allergy Verified 04/12/20 13:23 Exam Vital signs: Vital Signs Temp 98.3 F 05/10/20 11:38 Pulse 76 05/10/20 11:38 Resp 14 05/10/20 11:38 BP 113/69 05/10/20 11:38 Pulse Ox 98 05/10/20 11:38 Intake & Output 05/09/20 05/10/20 05/10/20 18:59 06:59 18:59 Other: Weight 89.6 kg Weight 89.6 kg Body Mass Index 30.9 - Constitutional Present: no acute distress - Routine HEENT Exam Head: Present: normal inspection - Routine Neck Exam Present: full ROM - Routine Respiratory Exam Present: CTAB - Routine Cardiovascular Exam Cardiovascular: Present: RRR, S1, S2 - Routine Abdominal Exam Present: soft, nontender - Routine Extremities Exam Present: nontender - Routine Back/Spine/Pelvis Exam Back/Spine: Present: full ROM - Routine Skin Exam Present: intact - Routine Neurological Exam Present: alert, oriented X3 - Routine Psychiatric Exam Present: normal affect Data - Labs CBC & Chem 7: 05/10/20 11:32 05/10/20 11:32 Labs: 04/06/20 13:04 SLIDE REVIEW Routine 04/06/20 13:04 CEA [Carcinoembryonic Antigen] Routine Complete Blood Count Auto Diff Routine Comprehensive Met. Panel Routine 05/10/20 11:32 CMP [Comprehensive Met. Panel] Routine Complete Blood Count Auto Diff Routine SLIDE REVIEW Routine Laboratory Last Values WBC 6.1 X10*3/uL (4.8-10.8) 05/10/20 11:32 RBC 4.93 X10*6/uL (4.60-5.80) 05/10/20 11:32 Hgb 16.1 g/dl (14.0-18.0) 05/10/20 11:32 Hct 45.5 % (42-52) 05/10/20 11:32 MCV 92.3 fL (80-98) 05/10/20 11:32 MCH 32.7 pg (27.0-33.0) 05/10/20 11:32 MCHC 35.4 g/dl (31.0-36.0) 05/10/20 11:32 RDW 14.8 % (11.0-16.0) 05/10/20 11:32 Plt Count 91 X10*3/uL (160-400) L 05/10/20 11:32 MPV 9.8 fL (9.4-12.4) 05/10/20 11:32 Immature Gran % (Auto) 0.2 % (0.0-0.4) 05/10/20 11:32 Neut % (Auto) 64.3 % (45-73) 05/10/20 11:32 Lymph % (Auto) 22.2 % (20-40) 05/10/20 11:32 [place] % (Auto) 9.2 % (2-11) 05/10/20 11:32 Eos % (Auto) 3.1 % (0-4) 05/10/20 11:32 Baso % (Auto) 1.0 % (0-2) 05/10/20 11:32 Lymph # (Auto) 1.4 X10*3/uL (1.2-4.9) 05/10/20 11:32 [place] # (Auto) 0.6 X10*3/uL (0.1-1.2) 05/10/20 11:32 Eos # (Auto) 0.2 X10*3/uL (0.0-0.4) 05/10/20 11:32 Baso # (Auto) 0.1 X10*3/uL (0.0-0.2) 05/10/20 11:32 Abs Immat Gran (auto) 0.01 X10*3/uL (0.00-0.03) 05/10/20 11:32 Absolute Neuts (auto) 3.9 X10*3/uL (2.0-8.3) 05/10/20 11:32 Absolute Nucleated RBC 0.000 X10*3/uL (0.0-0.012) 05/10/20 11:32 Nucleated RBC % (auto) 0.0 /100WBC (0.0-0.2) 05/10/20 11:32 Smear Tech's Comments Not Reportable 05/10/20 11:32 Sodium 143 mmol/L (135-145) 05/10/20 11:32 Potassium 4.3 mmol/l (3.3-5.1) 05/10/20 11:32 Chloride 109 mmol/L (96-108) H 05/10/20 11:32 Carbon Dioxide 28 mmol/L (22-29) 05/10/20 11:32 Anion Gap 10 (12-20) L 05/10/20 11:32 BUN 11 mg/dL (9-16) 05/10/20 11:32 Creatinine 1.03 mg/dL (0.5-1.4) 05/10/20 11:32 Estim Creat Clear Calc 82.4 05/10/20 11:32 Estimated GFR > 60 05/10/20 11:32 Random Glucose 323 mg/dL (60-115) H D 05/10/20 11:32 Calcium 9.1 mg/dL (8.4-10.2) 05/10/20 11:32 Total Bilirubin 1.2 mg/dL (0.0-1.0) H 05/10/20 11:32 AST 30 U/L (5-37) 05/10/20 11:32 ALT 24 U/L (0-40) 05/10/20 11:32 Alkaline Phosphatase 133 U/L (39-117) H 05/10/20 11:32 Total Protein 6.6 g/dL (6.5-8.0) 05/10/20 11:32 Albumin 3.3 g/dL (3.5-5.0) L 05/10/20 11:32 Carcinoembryonic Ag 1.50 mg/mL 04/06/20 13:04 Progress Note: A/P (1) Adenocarcinoma of lower esophagus Status: Acute Assessment and plan: This is a pleasant, 59 year-old gentleman with history of Hepatitis C, Esophageal Adenocarcinoma. He completed combined modality therapy with radiation plus chemotherapy, in August of 2017. CT chest with contrast performed 10/22/17 showed wall thickening of the distal thoracic esophagus, enlarged paraesophageal varices, no enlarged hilar or mediastinal lymph nodes, enlarged spleen and mild upper abdominal lymphadenopathy, largest lymph node in the periportal region measuring 1.5x1.3 cm. Also a nonspecific 1 cm lucent lesion in the superior endplate of T7 would whole-body, ? metastasis. Several nonspecific lytic lesions in the thoracic and visualized upper lumbar vertebral bodies questionable for possible metastatic disease. He denies any dysphagia or odynophagia. Routine endoscopy reveals disease recurrence, with a 2 cm mass just below the EG junction. Pathology confirms: Moderately differentiated Adenocarcinoma. A PET scan, was denied. CT scan of the chest from November 24 revealed: 1. No pulmonary nodule, mass or groundglass opacity is seen. 2. There is no thoracic lymphadenopathy. 3. There is are cirrhotic changes of the liver redemonstrated, without focal mass seen. 4. There is interim placement of a portocaval shunt. The splenic and mesenteric veins appear patent. Upper abdominal varices are less pronounced than seen. 5. There is stable wall thickening of the gastroesophageal junction. 6. No abdominopelvic metastasis, free fluid or lymphadenopathy is seen. Unfortunately, he is really not a surgical candidate. He has already had radiation therapy so that is not an option. He underwent an endoscopic ultrasound to evaluate for the thickness of the tumor, and possible adenopathy. This was done on January [address] Elizabet Gilliam. Findings: Endoscopy revealed a 1.5-2 cm GE junction mass, that appeared to be semi pedunculated. Evidence of mild portal hypertensive gastropathy in the stomach. Two small polyps noted in the stomach 1 in the gastric body and other just proximal to the pyloric sphincter. Polyps appeared reactive. Endoscopic ultrasound: Tumor was hypoechoic 1.8 x 1.4 cm, likely T1b, and 0. The MP was intact. Small varices noted in the submucosa. No aortic nor vertebral invasion. Normal celiac takeoff. No obvious lesion in the liver. Normal appearing pancreatic duct. The plan initially was to proceed with photodynamic therapy. That will help to avoid systemic chemotherapy. He has seen Dr. Lucio Mo, at [facility], few weeks ago. His note mentions: Endosonographically, stage T1b. This is a difficult situation. Locally recurrent GE junction adenocarcinoma already subjected to 50 Gy of radiation. He has no regional nor distant metastatic disease. Ideally surgical resection should be done but his comorbidities that too significant to allow for a safe surgery. Endoscopic submucous ectomy still relatively early in the evolution of the technique and since this lesions pans 2.5 cm in longitudinal dimension that may be too much for endoscopic resection. We have to consider other local ablative modalities to take care of this recurrence. He was given a couple of options: 1. Photodynamic therapy. 2. Brachytherapy. He would favor brachy therapy, since his visceral disease is worrisome, in regards to the bleeding from his variceal disease. That would be more of a risk with photodynamic therapy. (he is not in favor of having to hide from light for 4-6 weeks if he undergoes photodynamic therapy.) Overall the safety profile of brachytherapy would be higher than photodynamic therapy. It also has a better track record. I called the Radiation Oncology Department at [facility] to expedite his appointment for brachy therapy there. D/W Radiation therapist at [facility]. They are recommending re-irradiation. I had discussed with Dr. Sarmiento at [facility], to set it up here, for his convenience. His appointment was on April 12. She did discussed the option of endoscopic resection with the surgeon however they were not keen on it on account of his history of varices. PLAN: He is scheduled for a PET scan tomorrow morning at 07:30. He has an appointment at [facility] on Thursday, for radiation treatment planning. He will gets started on RT, after that. He will return in 1 month for a follow-up visit. Thank you, CC: Dr. Gray. Dr. Nikki Acevedo. Dr. Suggs. Dr. Mo. - Time Spent With Patient Total time spent is greater than 50% in coordination of care (as documented) at patient's floor/unit and/or counseling patient: 25 - 35 minutes
--- NOTE | 2020-05-10 13:38 | MHC.HEMONCSW ---
MET WITH PT WHO REMAINS ALERT AND INDEPENDENT. HAS DIAGNOSIS OF RECURRENT ESOPHAGEAL CANCER. PLAN IS TO RE-RADIATE AGAIN.....AND ??? BRACHY THERAPY AT [facility]. REPORTS COPING WELL WITH EXCEPTION OF MANY DOCTOR APPOINTMENTS, GOOD ATTITUDE. EDUCATION GUIDANCE AND SUPPORT PROVIDED.
--- NOTE | 2020-07-19 11:19 | MHC.HEMONCMA ---
[facility] called, they are looking for recent labs and last office note. I faxed over office note from 05/11/2020 and his labs from 05/10/2020.
[2020-10-05 15:51] VITALS: BP 121/66; PULSE 80; RESP 12; TEMP 36.4; O2SAT 98; BMI 30.3
--- NOTE | 2020-10-05 15:59 | PM.HEMONCPN ---
Medical Summary - Medical Summary Date of Service: 10/05/20 Chief complaint: FOLLOW-UP FOR: ADENOCARCINOMA OF THE ESOPHAGUS. Medical Summary: Diagnosis: Adenocarcinoma of the esophagus, of the lower end. Current Therapy: 1. Combined modality therapy with radiation along with weekly carboplatin and Taxol, had 4 weeks, Completed 08/21/2017. 2. Now with disease recurrence, seen at the EG junction on endoscopy on October 27. Completed re- radiation, about a month ago. Interval History Interval history: This is a pleasant 59-year-old gentleman, here for a follow-up visit. He completed reradiation about a month ago.. He tolerated it well for the most part. He did not develop any swallowing difficulty however he did end up with a cold and a cough which lasted about 5 weeks. It has resolved now. He is doing very well. He has no problems swallowing. He denies any symptoms of dysphagia or odynophagia. He is eating well. No headache no dizziness. He denies easy fatigability, he is very active around the house. Denies chest pain or trouble breathing. No cough no sputum. He denies abdominal pain nausea vomiting heartburn indigestion. Bowels are working without any gross blood in it. He enjoys a good appetite. He has lost a little weight. He is in good spirits. Rest of the review of systems is unremarkable. Review of Systems - Constitutional Reports no additional constitutional complaints - Eyes Reports no additional eye complaints - ENT Reports no additional ear, nose, mouth, and throat complaints - Cardiovascular Reports no additional cardiovascular complaints - Respiratory Reports no additional respiratory complaints - Gastrointestinal Reports no additional gastrointestinal complaints - Genitourinary Genitourinary: Reports no additional male genitourinary complaints - Musculoskeletal Reports no additional musculoskeletal complaints - Integumentary/Breasts Skin/Breast: Reports no additional skin complaints - Neurologic Reports no additional neurologic complaints - Psychiatric Reports no additional psychiatric complaints - Endocrine Reports no additional endocrine complaints - Hematologic/Lymphatic Reports no additional hematologic/lymphatic complaints - Allergic/Immunologic Reports no additional allergic/immunologic complaints [facility] Medical History: Medical History (Last Reviewed 10/05/20 @ 15:52 by Giovanna Chan) Adenocarcinoma of lower esophagus Alcoholic cirrhosis Anemia Constipation Diabetes Elevated ferritin Esophageal varices Esophagus, carcinoma Hepatic cirrhosis Hepatitis C Hx of splenomegaly Hyperlipidemia LDL goal <70 Male circumcision Seizure disorder Stroke Thrombocytopenia Type 2 diabetes mellitus with diabetic polyneuropathy Type 2 diabetes mellitus with hyperglycemia Functional capacity: independent ambulation Patient : No Family History: Family History (Last Reviewed 10/05/20 @ 15:52 by Giovanna Chan) Father No problems noted. Mother Diabetes mellitus Surgical History: Surgical History (Last Reviewed 10/05/20 @ 15:52 by Giovanna Chan) Hx of circumcision Hx of colonoscopy Hx of endoscopy Social History: Social History (Last Reviewed 10/05/20 @ 15:53 by Giovanna Chan) Living Situation History: Household Members: Spouse Alcohol History: Alcohol intake: never Alcohol History Quit Date: Year quit: 1984 Alcohol History Details: Alcohol intake frequency: former alcohol drinker Tobacco History: Smoking Status: Former smoker Smoked in Last 30 Days: No Smoking Quit Date: 1984 Substance Use History: Use of substances other than those prescribed or required for medical reasons: No Advance Directives: Advance Directives: No Advance Directives Information Provided: No Nutrition Assessment: Patient : No Smoking status: Former smoker Oncology Screenings - ECOG Performance Status ECOG Performance Status: 0 Home Medications and Allergies Home Medications Medication Instructions Recorded Confirmed Type cholecalciferol (vitamin D3) 25 mcg PO DAILY 04/06/20 09/19/20 History [Vitamin D3] docusate sodium 1 cap PO DAILY 04/06/20 09/19/20 History lactulose 15 ml PO TID 04/06/20 09/19/20 History lancets 33 gauge #100 ea 08/15/20 10/05/20 History pen needle, diabetic 31 gauge x #1200 ea 08/15/20 10/05/20 History /16 Allergies Allergy/AdvReac Type Severity Reaction Status Date / Time No Known Allergies Allergy Verified 09/25/20 07:59 Exam Vital signs: Vital Signs Temp 97.6 F 10/05/20 15:51 Pulse 80 10/05/20 15:51 Resp 12 10/05/20 15:51 BP 121/66 10/05/20 15:51 Pulse Ox 98 10/05/20 15:51 Intake & Output 10/04/20 10/05/20 10/05/20 18:59 06:59 18:59 Other: Weight 87.8 kg Weight in Grams 49290 Weight 87.8 kg Body Mass Index 30.3 - Constitutional Present: no acute distress - Routine HEENT Exam Head: Present: normal inspection Eye: Present: normal appearance ENT: Present: mucous membranes moist - Routine Neck Exam Present: full ROM - Routine Respiratory Exam Present: CTAB - Routine Cardiovascular Exam Cardiovascular: Present: RRR, S1, S2 - Routine Abdominal Exam Present: soft, nontender - Routine Extremities Exam Present: nontender - Routine Back/Spine/Pelvis Exam Back/Spine: Present: full ROM - Routine Skin Exam Present: intact - Routine Neurological Exam Present: alert, oriented X3 - Routine Psychiatric Exam Present: normal affect Data - Labs CBC & Chem 7: 10/05/20 16:37 05/10/20 11:32 Labs: 04/06/20 13:04 SLIDE REVIEW Routine 04/06/20 13:04 CEA [Carcinoembryonic Antigen] Routine Complete Blood Count Auto Diff Routine Comprehensive Met. Panel Routine 05/10/20 11:32 CMP [Comprehensive Met. Panel] Routine Complete Blood Count Auto Diff Routine SLIDE REVIEW Routine Laboratory Last Values WBC 6.1 X10*3/uL (4.8-10.8) 05/10/20 11:32 RBC 4.93 X10*6/uL (4.60-5.80) 05/10/20 11:32 Hgb 16.1 g/dl (14.0-18.0) 05/10/20 11:32 Hct 45.5 % (42-52) 05/10/20 11:32 MCV 92.3 fL (80-98) 05/10/20 11:32 MCH 32.7 pg (27.0-33.0) 05/10/20 11:32 MCHC 35.4 g/dl (31.0-36.0) 05/10/20 11:32 RDW 14.8 % (11.0-16.0) 05/10/20 11:32 Plt Count 91 X10*3/uL (160-400) L 05/10/20 11:32 MPV 9.8 fL (9.4-12.4) 05/10/20 11:32 Immature Gran % (Auto) 0.2 % (0.0-0.4) 05/10/20 11:32 Neut % (Auto) 64.3 % (45-73) 05/10/20 11:32 Lymph % (Auto) 22.2 % (20-40) 05/10/20 11:32 [place] % (Auto) 9.2 % (2-11) 05/10/20 11:32 Eos % (Auto) 3.1 % (0-4) 05/10/20 11:32 Baso % (Auto) 1.0 % (0-2) 05/10/20 11:32 Lymph # (Auto) 1.4 X10*3/uL (1.2-4.9) 05/10/20 11:32 [place] # (Auto) 0.6 X10*3/uL (0.1-1.2) 05/10/20 11:32 Eos # (Auto) 0.2 X10*3/uL (0.0-0.4) 05/10/20 11:32 Baso # (Auto) 0.1 X10*3/uL (0.0-0.2) 05/10/20 11:32 Abs Immat Gran (auto) 0.01 X10*3/uL (0.00-0.03) 05/10/20 11:32 Absolute Neuts (auto) 3.9 X10*3/uL (2.0-8.3) 05/10/20 11:32 Absolute Nucleated RBC 0.000 X10*3/uL (0.0-0.012) 05/10/20 11:32 Nucleated RBC % (auto) 0.0 /100WBC (0.0-0.2) 05/10/20 11:32 Smear Tech's Comments Not Reportable 05/10/20 11:32 Sodium 143 mmol/L (135-145) 05/10/20 11:32 Potassium 4.3 mmol/l (3.3-5.1) 05/10/20 11:32 Chloride 109 mmol/L (96-108) H 05/10/20 11:32 Carbon Dioxide 28 mmol/L (22-29) 05/10/20 11:32 Anion Gap 10 (12-20) L 05/10/20 11:32 BUN 11 mg/dL (9-16) 05/10/20 11:32 Creatinine 1.03 mg/dL (0.5-1.4) 05/10/20 11:32 Estim Creat Clear Calc 82.4 05/10/20 11:32 Estimated GFR > 60 05/10/20 11:32 Random Glucose 323 mg/dL (60-115) H D 11/19/20 11:32 Calcium 9.1 mg/dL (8.4-10.2) 05/10/20 11:32 Total Bilirubin 1.2 mg/dL (0.0-1.0) H 05/10/20 11:32 AST 30 U/L (5-37) 05/10/20 11:32 ALT 24 U/L (0-40) 05/10/20 11:32 Alkaline Phosphatase 133 U/L (39-117) H 05/10/20 11:32 Total Protein 6.6 g/dL (6.5-8.0) 05/10/20 11:32 Albumin 3.3 g/dL (3.5-5.0) L 05/10/20 11:32 Carcinoembryonic Ag 1.50 mg/mL 04/06/20 13:04 Progress Note: A/P (1) Adenocarcinoma of lower esophagus Status: Acute Assessment and plan: This is a pleasant, 59 year-old gentleman with history of Hepatitis C, Esophageal Adenocarcinoma. He completed combined modality therapy with radiation plus chemotherapy, in August of 2017. CT chest with contrast performed 10/22/17 showed wall thickening of the distal thoracic esophagus, enlarged paraesophageal varices, no enlarged hilar or mediastinal lymph nodes, enlarged spleen and mild upper abdominal lymphadenopathy, largest lymph node in the periportal region measuring 1.5x1.3 cm. Also a nonspecific 1 cm lucent lesion in the superior endplate of T7 would whole-body, ? metastasis. Several nonspecific lytic lesions in the thoracic and visualized upper lumbar vertebral bodies questionable for possible metastatic disease. He denies any dysphagia or odynophagia. Routine endoscopy reveals disease recurrence, with a 2 cm mass just below the EG junction. Pathology confirms: Moderately differentiated Adenocarcinoma. A PET scan, was denied. CT scan of the chest from November 24 revealed: 1. No pulmonary nodule, mass or groundglass opacity is seen. 2. There is no thoracic lymphadenopathy. 3. There is are cirrhotic changes of the liver redemonstrated, without focal mass seen. 4. There is interim placement of a portocaval shunt. The splenic and mesenteric veins appear patent. Upper abdominal varices are less pronounced than seen. 5. There is stable wall thickening of the gastroesophageal junction. 6. No abdominopelvic metastasis, free fluid or lymphadenopathy is seen. Unfortunately, he is really not a surgical candidate. He has already had radiation therapy so that is not an option. He underwent an endoscopic ultrasound to evaluate for the thickness of the tumor, and possible adenopathy. This was done on January [address] Elizabet Gilliam. Findings: Endoscopy revealed a 1.5-2 cm GE junction mass, that appeared to be semi pedunculated. Evidence of mild portal hypertensive gastropathy in the stomach. Two small polyps noted in the stomach 1 in the gastric body and other just proximal to the pyloric sphincter. Polyps appeared reactive. Endoscopic ultrasound: Tumor was hypoechoic 1.8 x 1.4 cm, likely T1b, and 0. The MP was intact. Small varices noted in the submucosa. No aortic nor vertebral invasion. Normal celiac takeoff. No obvious lesion in the liver. Normal appearing pancreatic duct. The plan initially was to proceed with photodynamic therapy. That will help to avoid systemic chemotherapy. He has seen Dr. Lucio Mo, at [facility], few weeks ago. His note mentions: Endosonographically, stage T1b. This is a difficult situation. Locally recurrent GE junction adenocarcinoma already subjected to 50 Gy of radiation. He has no regional nor distant metastatic disease. Ideally surgical resection should be done but his comorbidities that too significant to allow for a safe surgery. Endoscopic submucous ectomy still relatively early in the evolution of the technique and since this lesions pans 2.5 cm in longitudinal dimension that may be too much for endoscopic resection. We have to consider other local ablative modalities to take care of this recurrence. He was given a couple of options: 1. Photodynamic therapy. 2. Brachytherapy. He would favor brachy therapy, since his visceral disease is worrisome, in regards to the bleeding from his variceal disease. That would be more of a risk with photodynamic therapy. (he is not in favor of having to hide from light for 4-6 weeks if he undergoes photodynamic therapy.) Overall the safety profile of brachytherapy would be higher than photodynamic therapy. It also has a better track record. I called the Radiation Oncology Department at [facility] to expedite his appointment for brachy therapy there. D/W Radiation therapist at [facility]. They are recommending re-irradiation. I had discussed with Dr. Sarmiento at [facility], to set it up here, for his convenience. His appointment was on October 22nd. She did discussed the option of endoscopic resection with the surgeon however they were not keen on it on account of his history of varices. He had a PET scan done, on 05/11/2020 at [facility] which revealed: Focal area of distal esophageal wall thickening with mildly increased activity, SUV max of 5.5. No findings suggestive of distal metastatic disease. He was then referred to Dr. Sarmiento. He completed re-irradiation at [facility], about a month ago. He had repeat upper endoscopy by Dr. Suggs, on 09/25. This revealed: Esophagus: The esophagus showed changes consistent with his prior radiation therapy. There was a nodular area just below the EG junction with some inflammatory change. This was biopsied. There were no visible esophageal varices or gastric varices. Stomach: The stomach showed no evidence of masses or ulcers. The previously identified gastric polyps were present. They appeared unchanged from his prior examination. Biopsies were obtained from the gastric polyps. Duodenum: The bulb and second portion were normal. 1. Adenocarcinoma of the EG junction, status post biopsy. 2. Gastric polyps. Unfortunately, the biopsy results revealed: Ulcerated cardiac type mucosa with high-grade dysplasia/in Situ adenocarcinoma. No squamous epithelium seen. This could be residual after radiation and may disappear with the tincture of time. However there is no invasive component, for which any medical treatment could be recommended. PLAN: To continue close follow-up. I would recommend repeat endoscopy in 3 months time. He will return in 3 months for a follow-up visit. Thank you, CC: Dr. Gray. Dr. Nikki Acevedo. Dr. Suggs. Dr. Mo. - Time Spent With Patient Total time spent is greater than 50% in coordination of care (as documented) at patient's floor/unit and/or counseling patient: 25 - 35 minutes
--- NOTE | 2020-10-05 16:04 | MHC.HEMONCMA ---
Pt presents to f/u on adenocarcinoma of esophgus. History reviewed and pt will have labs drawn when he leaves because he wants to have his pcp orders done along with Dr Crawford's.
[2020-10-05 16:50] LABS: Basophils Percent Auto 0.8 % (0-2); Eosinophils Absolute Auto 0.2 X10*3/uL (0.0-0.4); Eosinophils Percent Auto 5.3 % (0-4); Hematocrit 42.4 % (42-52); Hemoglobin 15.1 g/dl (14.0-18.0); Imm Gran Abs Auto 0.01 X10*3/uL (0.00-0.03); Imm Gran Pct Auto 0.3 % (0.0-0.4); Lymphocytes Absolute Auto 0.6 X10*3/uL (1.2-4.9); Lymphocytes Percent Auto 14.8 % (20-40); MANUAL DIFF FLAG SCAN; Mean Corpuscular HGB Conc 35.6 g/dl (31.0-36.0); Mean Corpuscular Hemoglobin 33.1 pg (27.0-33.0); Mean Platelet Volume 9.2 fL (9.4-12.4); Monocytes Absolute Auto 0.3 X10*3/uL (0.1-1.2); Monocytes Percent Auto 7.5 % (2-11); Neutrophils Absolute Auto 2.9 X10*3/uL (2.0-8.3); Neutrophils Percent Auto 71.3 % (45-73); Red Blood Count 4.56 X10*6/uL (4.60-5.80); Red Cell Distribution Width 15.3 % (11.0-16.0); SCAN SMEAR FLAG 1
[2020-10-05 16:52] LABS: Platelet Count 58 X10*3/uL (160-400)
[2020-10-05 17:05] LABS: Estimated Average Glucose 160 mg/dL; Hemoglobin A1c % 7.2 %
[2020-10-05 17:15] LABS: Alanine Aminotransferase 23 U/L (0-40); Albumin Level 3.4 g/dL (3.5-5.0); Alkaline Phosphatase 125 U/L (39-117); Anion Gap 11 (12-20); Aspartate Amino Transferase 34 U/L (5-37); Bilirubin Total 1.6 mg/dL (0.0-1.0); Blood Urea Nitrogen 12 mg/dL (9-16); Calcium 8.5 mg/dL (8.4-10.2); Carbon Dioxide 26 mmol/L (22-29); Chloride 111 mmol/L (96-108); Creatinine Clr Calc Pharmacy 102.5; Estimated Glomerular Filt Rate > 60; Glucose Random 233 mg/dL (60-115); Potassium 3.8 mmol/L (3.3-5.1); Sodium 144 mmol/L (135-145); Total Protein 6.8 g/dL (6.5-8.0)
[2020-10-05 17:26] LABS: SLIDE REVIEW VERIFIED
[2020-10-05 17:28] LABS: Creatinine Urine 66.78 mg/dL; Microalbumin Urine < 5.0 mg/L
[2020-10-05 17:35] LABS: Prostate Specific Antigen Scr 0.26 ng/mL (<0.05-4.0)
[2021-01-07 15:25] VITALS: BP 125/75; PULSE 69; RESP 18; TEMP 36.4; O2SAT 97; BMI 30.5
[2021-01-07 15:35] LABS: Basophils Percent Auto 0.9 % (0-2); Imm Gran Abs Auto 0.01 X10*3/uL (0.00-0.03); Imm Gran Pct Auto 0.2 % (0.0-0.4); PLT CLUMP 1; SCAN SMEAR FLAG 1
[2021-01-07 15:37] LABS: Eosinophils Absolute Auto 0.2 X10*3/uL (0.0-0.4); Eosinophils Percent Auto 4.2 % (0-4); Hematocrit 43.2 % (42-52); Hemoglobin 15.3 g/dl (14.0-18.0); Lymphocytes Absolute Auto 0.9 X10*3/uL (1.2-4.9); Lymphocytes Percent Auto 19.4 % (20-40); Mean Corpuscular HGB Conc 35.4 g/dl (31.0-36.0); Mean Corpuscular Hemoglobin 32.5 pg (27.0-33.0); Mean Corpuscular Volume 91.7 fL (80-98); Monocytes Absolute Auto 0.4 X10*3/uL (0.1-1.2); Monocytes Percent Auto 8.9 % (2-11); Neutrophils Percent Auto 66.4 % (45-73); Red Blood Count 4.71 X10*6/uL (4.60-5.80); White Blood Count 4.5 X10*3/uL (4.8-10.8)
[2021-01-07 15:56] LABS: Platelet Count 61 X10*3/uL (160-400)
[2021-01-07 16:05] LABS: Alanine Aminotransferase 22 U/L (0-40); Albumin Level 3.5 g/dL (3.5-5.0); Alkaline Phosphatase 118 U/L (39-117); Anion Gap 12 (12-20); Aspartate Amino Transferase 36 U/L (5-37); Bilirubin Total 2.1 mg/dL (0.0-1.0); Blood Urea Nitrogen 14 mg/dL (9-16); Calcium 8.7 mg/dL (8.4-10.2); Carbon Dioxide 24 mmol/L (22-29); Chloride 108 mmol/L (96-108); Creatinine Clr Calc Pharmacy 80.1; Estimated Glomerular Filt Rate > 60; Glucose Random 224 mg/dL (60-115); Potassium 4.2 mmol/L (3.3-5.1); Sodium 140 mmol/L (135-145)
--- NOTE | 2021-01-07 16:14 | PM.HEMONCPN ---
Medical Summary - Medical Summary Date of Service: 01/07/21 Chief complaint: Follow-up for: Carcinoma of the esophagus. Medical Summary: Diagnosis: Adenocarcinoma of the esophagus, of the lower end. Current Therapy: 1. Combined modality therapy with radiation along with weekly carboplatin and Taxol, had 4 weeks, Completed 08/21/2017. 2. Now with disease recurrence, seen at the EG junction on endoscopy on October 27. Completed re- radiation, a few months ago. Interval History Interval history: This is a pleasant 60 year-old gentleman, here for a follow-up visit. He tells me he has been doing well. He had a stroke few months ago. He went through a course physical therapy. He still has residual right upper extremity weakness. He is trying to stay active. He does yd work at home. He denies any dysphagia or odynophagia. He gets tired at times. He is eating well. No headache no dizziness. He denies easy fatigability, he is very active around the house. Denies chest pain or trouble breathing. No cough no sputum. He denies abdominal pain nausea vomiting heartburn indigestion. Bowels are working without any gross blood in it. He enjoys a good appetite. He has lost a little weight. He is in good spirits. Rest of the review of systems is unremarkable. Previous history: He completed re irradiation in May. He tolerated it well for the most part. He did not develop any swallowing difficulty however he did end up with a cold and a cough which lasted about 5 weeks. It has resolved now. Review of Systems - Constitutional Reports system reviewed and no additional complaints, except as documented, Denies fatigue, Denies lack of energy, Denies malaise, Denies poor appetite, Denies weight loss - Eyes Reports system reviewed and no additional complaints, except as documented - ENT Reports system reviewed and no additional complaints, except as documented - Cardiovascular Reports system reviewed and no additional complaints, except as documented - Respiratory Reports no additional respiratory complaints - Gastrointestinal Reports system reviewed and no additional complaints, except as documented, Denies bright, red blood in stools, Denies heartburn, Denies diarrhea, Denies pain with swallowing - Genitourinary Genitourinary: Reports no additional male genitourinary complaints - Musculoskeletal Reports system reviewed and no additional complaints, except as documented - Integumentary/Breasts Skin/Breast: Reports no additional skin complaints - Neurologic Reports system reviewed and no additional complaints, except as documented, Reports abnormal gait, Reports focal weakness Comments: Right upper extremity weakness. - Psychiatric Reports system reviewed and no additional complaints, except as documented - Endocrine Reports no additional endocrine complaints - Hematologic/Lymphatic Reports system reviewed and no additional complaints, except as documented - Allergic/Immunologic Reports system reviewed and no additional complaints, except as documented PMFSH Medical History: Medical History (Last Reviewed 10/22/20 @ 13:23 by KEISHA Reynoso) Adenocarcinoma of lower esophagus Alcoholic cirrhosis Anemia Constipation Diabetes Elevated ferritin Esophageal varices Esophagus, carcinoma Hepatic cirrhosis Hepatitis C Hx of splenomegaly Hyperlipidemia LDL goal <70 Male circumcision Seizure disorder Stroke Thrombocytopenia Type 2 diabetes mellitus with diabetic polyneuropathy Type 2 diabetes mellitus with hyperglycemia Functional capacity: independent ambulation Patient : No Family History: Family History (Last Reviewed 10/22/20 @ 13:23 by KEISHA Reynoso) Father No problems noted. Mother Diabetes mellitus Surgical History: Surgical History (Last Reviewed 10/22/20 @ 13:23 by KEISHA Reynoso) Hx of circumcision Hx of colonoscopy Hx of endoscopy Social History: Social History (Last Reviewed 10/22/20 @ 13:23 by KEISHA Reynoso) Living Situation History: Household Members: Spouse Household Members Other:: Spouse: Antoni Alcohol History: Alcohol intake: never Alcohol History Quit Date: Year quit: 1984 Alcohol History Details: Alcohol intake frequency: former alcohol drinker Tobacco History: Smoked in Last 30 Days: No Substance Use History: Use of substances other than those prescribed or required for medical reasons: No Advance Directives: Advance Directives: No Advance Directives Information Provided: No Nutrition Assessment: Patient : No Oncology Screenings - ECOG Performance Status ECOG Performance Status: 1 Home Medications and Allergies Home Medications Medication Instructions Recorded Confirmed Type cholecalciferol (vitamin D3) 25 25 mcg PO DAILY 04/06/20 01/07/21 History mcg (1,000 unit) tablet (Vitamin D3) docusate sodium 100 mg capsule 1 cap PO DAILY 04/06/20 01/07/21 History lactulose 10 gram/15 mL oral 15 ml PO TID 04/06/20 01/07/21 History solution lancets 33 gauge #100 ea 08/15/20 01/07/21 History pen needle, diabetic 31 gauge x #1200 ea 08/15/20 01/07/21 History 11/04 Allergies Allergy/AdvReac Type Severity Reaction Status Date / Time No Known Allergies Allergy Verified 10/22/20 13:16 Exam Vital signs: Vital Signs Temp 97.5 F 01/07/21 15:25 Pulse 69 01/07/21 15:25 Resp 18 01/07/21 15:25 BP 125/75 01/07/21 15:25 Pulse Ox 97 01/07/21 15:25 Intake & Output 01/06/21 01/07/21 01/07/21 18:59 06:59 18:59 Other: Weight 88.5 kg [place] Weight in Grams 89169 Weight 88.5 kg Body Mass Index 30.5 - Constitutional Present: no acute distress - Routine HEENT Exam Head: Present: normal inspection Eye: Present: normal appearance ENT: Present: mucous membranes moist - Routine Neck Exam Present: full ROM - Routine Respiratory Exam Present: CTAB - Routine Cardiovascular Exam Cardiovascular: Present: RRR, S1, S2 - Routine Abdominal Exam Present: soft, nontender - Routine Extremities Exam Present: nontender - Routine Back/Spine/Pelvis Exam Back/Spine: Present: full ROM - Routine Skin Exam Present: intact - Routine Neurological Exam Present: alert, oriented X3 Right upper extremity weakness - Detailed Neurological Exam: Coma Scale Eye Opening: Spontaneous (4) Verbal Response: Oriented (5) - Routine Psychiatric Exam Present: normal affect Data - Labs CBC & Chem 7: 01/07/21 15:29 01/07/21 15:29 Labs: 04/06/20 13:04 SLIDE REVIEW Routine 04/06/20 13:04 CEA [Carcinoembryonic Antigen] Routine Complete Blood Count Auto Diff Routine Comprehensive Met. Panel Routine 05/10/20 11:32 CMP [Comprehensive Met. Panel] Routine Complete Blood Count Auto Diff Routine SLIDE REVIEW Routine Laboratory Last Values WBC 6.1 X10*3/uL (4.8-10.8) 05/10/20 11:32 RBC 4.93 X10*6/uL (4.60-5.80) 05/10/20 11:32 Hgb 16.1 g/dl (14.0-18.0) 05/10/20 11:32 Hct 45.5 % (42-52) 05/10/20 11:32 MCV 92.3 fL (80-98) 05/10/20 11:32 MCH 32.7 pg (27.0-33.0) 05/10/20 11:32 MCHC 35.4 g/dl (31.0-36.0) 05/10/20 11:32 RDW 14.8 % (11.0-16.0) 05/10/20 11:32 Plt Count 91 X10*3/uL (160-400) L 05/10/20 11:32 MPV 9.8 fL (9.4-12.4) 05/10/20 11:32 Immature Gran % (Auto) 0.2 % (0.0-0.4) 05/10/20 11:32 Neut % (Auto) 64.3 % (45-73) 05/10/20 11:32 Lymph % (Auto) 22.2 % (20-40) 05/10/20 11:32 [place] % (Auto) 9.2 % (2-11) 05/10/20 11:32 Eos % (Auto) 3.1 % (0-4) 05/10/20 11:32 Baso % (Auto) 1.0 % (0-2) 05/10/20 11:32 Lymph # (Auto) 1.4 X10*3/uL (1.2-4.9) 05/10/20 11:32 [place] # (Auto) 0.6 X10*3/uL (0.1-1.2) 05/10/20 11:32 Eos # (Auto) 0.2 X10*3/uL (0.0-0.4) 05/10/20 11:32 Baso # (Auto) 0.1 X10*3/uL (0.0-0.2) 05/10/20 11:32 Abs Immat Gran (auto) 0.01 X10*3/uL (0.00-0.03) 05/10/20 11:32 Absolute Neuts (auto) 3.9 X10*3/uL (2.0-8.3) 05/10/20 11:32 Absolute Nucleated RBC 0.000 X10*3/uL (0.0-0.012) 05/10/20 11:32 Nucleated RBC % (auto) 0.0 /100WBC (0.0-0.2) 05/10/20 11:32 Smear Tech's Comments Not Reportable 05/10/20 11:32 Sodium 143 mmol/L (135-145) 05/10/20 11:32 Potassium 4.3 mmol/l (3.3-5.1) 05/10/20 11:32 Chloride 109 mmol/L (96-108) H 05/10/20 11:32 Carbon Dioxide 28 mmol/L (22-29) 05/10/20 11:32 Anion Gap 10 (12-20) L 05/10/20 11:32 BUN 11 mg/dL (9-16) 05/10/20 11:32 Creatinine 1.03 mg/dL (0.5-1.4) 05/10/20 11:32 Estim Creat Clear Calc 82.4 05/10/20 11:32 Estimated GFR > 60 05/10/20 11:32 Random Glucose 323 mg/dL (60-115) H D 05/10/20 11:32 Calcium 9.1 mg/dL (8.4-10.2) 05/10/20 11:32 Total Bilirubin 1.2 mg/dL (0.0-1.0) H 05/10/20 11:32 AST 30 U/L (5-37) 05/10/20 11:32 ALT 24 U/L (0-40) 05/10/20 11:32 Alkaline Phosphatase 133 U/L (39-117) H 05/10/20 11:32 Total Protein 6.6 g/dL (6.5-8.0) 05/10/20 11:32 Albumin 3.3 g/dL (3.5-5.0) L 05/10/20 11:32 Carcinoembryonic Ag 1.50 mg/mL 04/06/20 13:04 Progress Note: A/P (1) Adenocarcinoma of lower esophagus Status: Acute Assessment and plan: This is a pleasant, 59 year-old gentleman with history of Hepatitis C, Esophageal Adenocarcinoma. He completed combined modality therapy with radiation plus chemotherapy, in August of 2017. CT chest with contrast performed 10/22/17 showed wall thickening of the distal thoracic esophagus, enlarged paraesophageal varices, no enlarged hilar or mediastinal lymph nodes, enlarged spleen and mild upper abdominal lymphadenopathy, largest lymph node in the periportal region measuring 1.5x1.3 cm. Also a nonspecific 1 cm lucent lesion in the superior endplate of T7 would whole-body, ? metastasis. Several nonspecific lytic lesions in the thoracic and visualized upper lumbar vertebral bodies questionable for possible metastatic disease. He denies any dysphagia or odynophagia. Routine endoscopy reveals disease recurrence, with a 2 cm mass just below the EG junction. Pathology confirms: Moderately differentiated Adenocarcinoma. A PET scan, was denied. CT scan of the chest from November 24 revealed: 1. No pulmonary nodule, mass or groundglass opacity is seen. 2. There is no thoracic lymphadenopathy. 3. There is are cirrhotic changes of the liver redemonstrated, without focal mass seen. 4. There is interim placement of a portocaval shunt. The splenic and mesenteric veins appear patent. Upper abdominal varices are less pronounced than seen. 5. There is stable wall thickening of the gastroesophageal junction. 6. No abdominopelvic metastasis, free fluid or lymphadenopathy is seen. Unfortunately, he is really not a surgical candidate. He has already had radiation therapy so that is not an option. He underwent an endoscopic ultrasound to evaluate for the thickness of the tumor, and possible adenopathy. This was done on January [address] Elizabet Gilliam. Findings: Endoscopy revealed a 1.5-2 cm GE junction mass, that appeared to be semi pedunculated. Evidence of mild portal hypertensive gastropathy in the stomach. Two small polyps noted in the stomach 1 in the gastric body and other just proximal to the pyloric sphincter. Polyps appeared reactive. Endoscopic ultrasound: Tumor was hypoechoic 1.8 x 1.4 cm, likely T1b, and 0. The MP was intact. Small varices noted in the submucosa. No aortic nor vertebral invasion. Normal celiac takeoff. No obvious lesion in the liver. Normal appearing pancreatic duct. The plan initially was to proceed with photodynamic therapy. That will help to avoid systemic chemotherapy. He has seen Dr. Lucio Mo, at [facility], few weeks ago. His note mentions: Endosonographically, stage T1b. This is a difficult situation. Locally recurrent GE junction adenocarcinoma already subjected to 50 Gy of radiation. He has no regional nor distant metastatic disease. Ideally surgical resection should be done but his comorbidities that too significant to allow for a safe surgery. Endoscopic submucous ectomy still relatively early in the evolution of the technique and since this lesions pans 2.5 cm in longitudinal dimension that may be too much for endoscopic resection. We have to consider other local ablative modalities to take care of this recurrence. He was given a couple of options: 1. Photodynamic therapy. 2. Brachytherapy. He would favor brachy therapy, since his visceral disease is worrisome, in regards to the bleeding from his variceal disease. That would be more of a risk with photodynamic therapy. (he is not in favor of having to hide from light for 4-6 weeks if he undergoes photodynamic therapy.) Overall the safety profile of brachytherapy would be higher than photodynamic therapy. It also has a better track record. I called the Radiation Oncology Department at [facility] to expedite his appointment for brachy therapy there. D/W Radiation therapist at [facility]. They are recommending re-irradiation. I had discussed with Dr. Sarmiento at [facility], to set it up here, for his convenience. His appointment was on April 12. She did discussed the option of endoscopic resection with the surgeon however they were not keen on it on account of his history of varices. He had a PET scan done, on 05/11/2020 at [facility] which revealed: Focal area of distal esophageal wall thickening with mildly increased activity, SUV max of 5.5. No findings suggestive of distal metastatic disease. He was then referred to Dr. Sarmiento. He completed re-irradiation at [facility], a few months ago. He had repeat upper endoscopy by Dr. Suggs, on 09/25. This revealed: Esophagus: The esophagus showed changes consistent with his prior radiation therapy. There was a nodular area just below the EG junction with some inflammatory change. This was biopsied. There were no visible esophageal varices or gastric varices. Stomach: The stomach showed no evidence of masses or ulcers. The previously identified gastric polyps were present. They appeared unchanged from his prior examination. Biopsies were obtained from the gastric polyps. Duodenum: The bulb and second portion were normal. 1. Adenocarcinoma of the EG junction, status post biopsy. 2. Gastric polyps. Unfortunately, the biopsy results revealed: Ulcerated cardiac type mucosa with high-grade dysplasia/in Situ adenocarcinoma. No squamous epithelium seen. This could be residual after radiation and may disappear with the tincture of time. However there is no invasive component, for which any medical treatment could be recommended. He had a left CVA with right-sided weakness. He had PT done. He still has residual right upper extremity weakness but otherwise doing well. Denies any GI complaints. PLAN: To continue close follow-up. I would recommend repeat endoscopy 3 months following his previous endoscopy. I have set up an appointment with Dr. Suggs. He will return in 3 months for a follow-up visit. Laura offered to send him to neurology however he declined, at this time. Thank you, CC: Dr. Gray. Dr. Nikki Acevedo. Dr. Suggs. Dr. Mo. - Time Spent With Patient Time Spent with Patient (in minutes): 30
--- NOTE | 2021-01-07 16:17 | MHC.HEMONC ---
Pt here for ONC follow up with Dr Crawford. Labs drawn by veterinary radiologist-specimen to lab. Pt states he has no pain, having fatigue and some dyspnea at times. States he is seeing oncology radiologist at [facility] tomorrow 01/08/21. States he did not go to Neuro appointment-states he goes to too many doctor appointments Clinical summary updated by nurse. Labs reviewed by provider. Provider into see pt. Dr Ken office called for follow up appointment-office to schedule and call pt with appointment. Discharge packet given. 3 month follow up appointment made. Discharged home
--- NOTE | 2021-04-11 14:54 | P.PNHO_ITS ---
Medical Summary - Medical Summary Date of Service: 04/11/21 Chief complaint: Follow-up for: Carcinoma of the esophagus. Medical Summary: Diagnosis: Adenocarcinoma of the esophagus, of the lower end. Current Therapy: 1. Combined modality therapy with radiation along with weekly carboplatin and Taxol, had 4 weeks, Completed 08/21/2017. 2. Now with disease recurrence, seen at the EG junction on endoscopy on October 27. Completed re- radiation, a few months ago. Interval History Interval history: This is a pleasant 60 year-old gentleman, here for a follow-up visit. He tells me he has been doing well. He gets tired at times. He is eating well. Denies dysphagia nor odynophagia. He had an upper endoscopy on 02/[address] Suggs. Did not reveal any residual cancer. No headache no dizziness. He denies easy fatigability, he is very active around the house. Denies chest pain or trouble breathing. No cough no sputum. He denies abdominal pain nausea vomiting heartburn indigestion. Bowels are working without any gross blood in it. He enjoys a good appetite. He has lost a little weight. He is in good spirits. Rest of the review of systems is unremarkable. Previous history: He completed re irradiation in May. He tolerated it well for the most part. He did not develop any swallowing difficulty however he did end up with a cold and a cough which lasted about 5 weeks. It has resolved now. He had a stroke few months ago. He went through a course physical therapy. He still has residual right upper extremity weakness. He is trying to stay active. He does yard work at home. He denies any dysphagia or odynophagia. Review of Systems - Constitutional Reports no additional constitutional complaints - Eyes Reports no additional eye complaints - ENT Reports no additional ear, nose, mouth, and throat complaints - Cardiovascular Reports no additional cardiovascular complaints - Respiratory Reports no additional respiratory complaints - Gastrointestinal Reports no additional gastrointestinal complaints - Genitourinary Genitourinary: Reports no additional male genitourinary complaints - Musculoskeletal Reports no additional musculoskeletal complaints - Integumentary/Breasts Skin/Breast: Reports no additional skin complaints - Neurologic Reports no additional neurologic complaints, Reports abnormal gait, Reports focal weakness - Psychiatric Reports no additional psychiatric complaints - Endocrine Reports no additional endocrine complaints - Hematologic/Lymphatic Reports no additional hematologic/lymphatic complaints - Allergic/Immunologic Reports no additional allergic/immunologic complaints [facility] Medical History: Medical History (Last Reviewed 04/11/21 @ 15:07 by James Leslie) Adenocarcinoma of lower esophagus Alcoholic cirrhosis Anemia Constipation Diabetes Elevated ferritin Esophageal varices Esophagus, carcinoma Hepatic cirrhosis Hepatitis C Hx of splenomegaly Hyperlipidemia LDL goal <70 Male circumcision Seizure disorder Stroke Thrombocytopenia Type 2 diabetes mellitus with diabetic polyneuropathy Type 2 diabetes mellitus with hyperglycemia Functional capacity: independent ambulation Patient : No Family History: Family History (Last Reviewed 04/11/21 @ 15:07 by James Leslie) Father No problems noted. Mother Diabetes mellitus Surgical History: Surgical History (Last Reviewed 04/11/21 @ 15:07 by James Leslie) Hx of circumcision Hx of colonoscopy Hx of endoscopy Social History: Social History (Last Reviewed 04/11/21 @ 15:07 by James Leslie) Living Situation History: Household Members: Spouse Household Members Other:: Spouse: Antoni Alcohol History: Alcohol intake: never Alcohol History Quit Date: Year quit: 1984 Alcohol History Details: Alcohol intake frequency: former alcohol drinker Tobacco History: Patient Tobacco Use Status: Former Tobacco user Tobacco use type: Cigarette Years Smoked: 10 Smoked in Last 30 Days: No Smoke Quit Date: 1979 e-Cigarette/Vaping Use: Never Used Second Hand Smoke Exposure: No Substance Use History: Use of substances other than those prescribed or required for medical reasons : No Advance Directives: Advance Directives: No Advance Directives Information Provided: No Nutrition Assessment: Patient : No Occupation Assessmet: service: No Current occupational status: disabled Oncology Screenings - ECOG Performance Status ECOG Performance Status: 0 Home Medications and Allergies Home Medications Medication Instructions Recorded Confirmed Type cholecalciferol (vitamin D3) 25 25 mcg PO DAILY 04/06/20 04/11/21 History mcg (1,000 unit) tablet (Vitamin D3) docusate sodium 100 mg capsule 1 cap PO DAILY 04/06/20 04/11/21 History lactulose 10 gram/15 mL oral 15 ml PO TID 04/06/20 04/11/21 History solution lancets 33 gauge #100 ea 08/15/20 04/11/21 History pen needle, diabetic 31 gauge x #1200 ea 08/15/20 04/11/21 History 5/16 Allergies Allergy/AdvReac Type Severity Reaction Status Date / Time No Known Allergies Allergy Verified 02/12/21 10:09 Exam Vital signs: Vital Signs Temp 97.5 F 01/07/21 15:25 Pulse 69 01/07/21 15:25 Resp 18 01/07/21 15:25 BP 125/75 01/07/21 15:25 Pulse Ox 97 01/07/21 15:25 Weight 88.5 kg Body Mass Index 30.5 - Constitutional Present: no acute distress - Routine HEENT Exam Head: Present: normal inspection Eye: Present: normal appearance ENT: Present: mucous membranes moist - Routine Neck Exam Present: full ROM - Routine Respiratory Exam Present: CTAB - Routine Cardiovascular Exam Cardiovascular: Present: RRR, S1, S2 - Routine Abdominal Exam Present: soft, nontender - Routine Extremities Exam Present: nontender - Routine Back/Spine/Pelvis Exam Back/Spine: Present: full ROM - Routine Skin Exam Present: intact - Routine Neurological Exam Present: alert, oriented X3 - Detailed Neurological Exam: Coma Scale Eye Opening: Spontaneous (4) - Routine Psychiatric Exam Present: normal affect Data - Labs CBC & Chem 7: 04/11/21 15:01 04/11/21 15:01 Labs: 04/06/20 13:04 SLIDE REVIEW Routine 04/06/20 13:04 CEA [Carcinoembryonic Antigen] Routine Complete Blood Count Auto Diff Routine Comprehensive Met. Panel Routine 05/10/20 11:32 CMP [Comprehensive Met. Panel] Routine Complete Blood Count Auto Diff Routine SLIDE REVIEW Routine Laboratory Last Values WBC 6.1 X10*3/uL (4.8-10.8) 05/10/20 11:32 RBC 4.93 X10*6/uL (4.60-5.80) 05/10/20 11:32 Hgb 16.1 g/dl (14.0-18.0) 05/10/20 11:32 Hct 45.5 % (42-52) 05/10/20 11:32 MCV 92.3 fL (80-98) 05/10/20 11:32 MCH 32.7 pg (27.0-33.0) 05/10/20 11:32 MCHC 35.4 g/dl (31.0-36.0) 05/10/20 11:32 RDW 14.8 % (11.0-16.0) 05/10/20 11:32 Plt Count 91 X10*3/uL (160-400) L 05/10/20 11:32 MPV 9.8 fL (9.4-12.4) 05/10/20 11:32 Immature Gran % (Auto) 0.2 % (0.0-0.4) 05/10/20 11:32 Neut % (Auto) 64.3 % (45-73) 05/10/20 11:32 Lymph % (Auto) 22.2 % (20-40) 05/10/20 11:32 [place] % (Auto) 9.2 % (2-11) 05/10/20 11:32 Eos % (Auto) 3.1 % (0-4) 05/10/20 11:32 Baso % (Auto) 1.0 % (0-2) 05/10/20 11:32 Lymph # (Auto) 1.4 X10*3/uL (1.2-4.9) 05/10/20 11:32 [place] # (Auto) 0.6 X10*3/uL (0.1-1.2) 05/10/20 11:32 Eos # (Auto) 0.2 X10*3/uL (0.0-0.4) 05/10/20 11:32 Baso # (Auto) 0.1 X10*3/uL (0.0-0.2) 05/10/20 11:32 Abs Immat Gran (auto) 0.01 X10*3/uL (0.00-0.03) 05/10/20 11:32 Absolute Neuts (auto) 3.9 X10*3/uL (2.0-8.3) 05/10/20 11:32 Absolute Nucleated RBC 0.000 X10*3/uL (0.0-0.012) 05/10/20 11:32 Nucleated RBC % (auto) 0.0 /100WBC (0.0-0.2) 05/10/20 11:32 Smear Tech's Comments Not Reportable 05/10/20 11:32 Sodium 143 mmol/L (135-145) 05/10/20 11:32 Potassium 4.3 mmol/l (3.3-5.1) 05/10/20 11:32 Chloride 109 mmol/L (96-108) H 05/10/20 11:32 Carbon Dioxide 28 mmol/L (22-29) 05/10/20 11:32 Anion Gap 10 (12-20) L 05/10/20 11:32 BUN 11 mg/dL (9-16) 05/10/20 11:32 Creatinine 1.03 mg/dL (0.5-1.4) 05/10/20 11:32 Estim Creat Clear Calc 82.4 05/10/20 11:32 Estimated GFR > 60 05/10/20 11:32 Random Glucose 323 mg/dL (60-115) H D 05/10/20 11:32 Calcium 9.1 mg/dL (8.4-10.2) 05/10/20 11:32 Total Bilirubin 1.2 mg/dL (0.0-1.0) H 05/10/20 11:32 AST 30 U/L (5-37) 05/10/20 11:32 ALT 24 U/L (0-40) 05/10/20 11:32 Alkaline Phosphatase 133 U/L (39-117) H 05/10/20 11:32 Total Protein 6.6 g/dL (6.5-8.0) 05/10/20 11:32 Albumin 3.3 g/dL (3.5-5.0) L 05/10/20 11:32 Carcinoembryonic Ag 1.50 mg/mL 04/06/20 13:04 Assessment and Plan Patient Active problem list reviewed?: Yes (1) Adenocarcinoma of lower esophagus Status: Acute Assessment and plan: This is a pleasant, 59 year-old gentleman with history of Hepatitis C, Esophageal Adenocarcinoma. He completed combined modality therapy with radiation plus chemotherapy, in August of 2017. CT chest with contrast performed 10/22/17 showed wall thickening of the distal thoracic esophagus, enlarged paraesophageal varices, no enlarged hilar or mediastinal lymph nodes, enlarged spleen and mild upper abdominal lymphadenopathy, largest lymph node in the periportal region measuring 1.5x1.3 cm. Also a nonspecific 1 cm lucent lesion in the superior endplate of T7 would whole-body, ? metastasis. Several nonspecific lytic lesions in the thoracic and visualized upper lumbar vertebral bodies questionable for possible metastatic disease. He denies any dysphagia or odynophagia. Routine endoscopy reveals disease recurrence, with a 2 cm mass just below the EG junction. Pathology confirms: Moderately differentiated Adenocarcinoma. A PET scan, was denied. CT scan of the chest from November 24 revealed: 1. No pulmonary nodule, mass or groundglass opacity is seen. 2. There is no thoracic lymphadenopathy. 3. There is are cirrhotic changes of the liver redemonstrated, without focal mass seen. 4. There is interim placement of a portocaval shunt. The splenic and mesenteric veins appear patent. Upper abdominal varices are less pronounced than seen. 5. There is stable wall thickening of the gastroesophageal junction. 6. No abdominopelvic metastasis, free fluid or lymphadenopathy is seen. Unfortunately, he is really not a surgical candidate. He has already had radiation therapy so that is not an option. He underwent an endoscopic ultrasound to evaluate for the thickness of the tumor, and possible adenopathy. This was done on January [address] Elizabet Gilliam. Findings: Endoscopy revealed a 1.5-2 cm GE junction mass, that appeared to be semi pedunculated. Evidence of mild portal hypertensive gastropathy in the stomach. Two small polyps noted in the stomach 1 in the gastric body and other just proximal to the pyloric sphincter. Polyps appeared reactive. Endoscopic ultrasound: Tumor was hypoechoic 1.8 x 1.4 cm, likely T1b, and 0. The MP was intact. Small varices noted in the submucosa. No aortic nor vertebral invasion. Normal celiac takeoff. No obvious lesion in the liver. Normal appearing pancreatic duct. The plan initially was to proceed with photodynamic therapy. That will help to avoid systemic chemotherapy. He has seen Dr. Lucio Mo, at [facility], few weeks ago. His note mentions: Endosonographically, stage T1b. This is a difficult situation. Locally recurrent GE junction adenocarcinoma already subjected to 50 Gy of radiation. He has no regional nor distant metastatic disease. Ideally surgical resection should be done but his comorbidities that too significant to allow for a safe surgery. Endoscopic submucous ectomy still relatively early in the evolution of the technique and since this lesions pans 2.5 cm in longitudinal dimension that may be too much for endoscopic resection. We have to consider other local ablative modalities to take care of this recurrence. He was given a couple of options: 1. Photodynamic therapy. 2. Brachytherapy. He would favor brachy therapy, since his visceral disease is worrisome, in regards to the bleeding from his variceal disease. That would be more of a risk with photodynamic therapy. (he is not in favor of having to hide from light for 4-6 weeks if he undergoes photodynamic therapy.) Overall the safety profile of brachytherapy would be higher than photodynamic therapy. It also has a better track record. I called the Radiation Oncology Department at [facility] to expedite his appointment for brachy therapy there. D/W Radiation therapist at [facility]. They are recommending re-irradiation. I had discussed with Dr. Sarmiento at [facility], to set it up here, for his convenience. His appointment was on April 12. She did discussed the option of endoscopic resection with the surgeon however they were not keen on it on account of his history of varices. He had a PET scan done, on 05/11/2020 at [facility] which revealed: Focal area of distal esophageal wall thickening with mildly increased activity, SUV max of 5.5. No findings suggestive of distal metastatic disease. He was then referred to Dr. Sarmiento. He completed re-irradiation at [facility], a few months ago. He had repeat upper endoscopy by Dr. Suggs, on 09/25. This revealed: Esophagus: The esophagus showed changes consistent with his prior radiation therapy. There was a nodular area just below the EG junction with some inflammatory change. This was biopsied. There were no visible esophageal varices or gastric varices. Stomach: The stomach showed no evidence of masses or ulcers. The previously identified gastric polyps were present. They appeared unchanged from his prior examination. Biopsies were obtained from the gastric polyps. Duodenum: The bulb and second portion were normal. 1. Adenocarcinoma of the EG junction, status post biopsy. 2. Gastric polyps. Unfortunately, the biopsy results revealed: Ulcerated cardiac type mucosa with high-grade dysplasia/in Situ adenocarcinoma. No squamous epithelium seen. This could be residual after radiation and may disappear with the tincture of time. However there is no invasive component, for which any medical treatment could be recommended. He had a left CVA with right-sided weakness. He had PT done. He still has residual right upper extremity weakness but otherwise doing well. Denies any GI complaints. Ultrasound of the abdomen from 02/14 revealed: Fatty infiltration of the liver. Patent TIPS. Splenomegaly. He had an upper endoscopy on the 02/[address] Suggs which revealed: No evidence of recurrent adenocarcinoma at the EG junction. His blood count has gone down. He has pancytopenia likely related to his liver disease and cirrhosis. His blood sugar is elevated today. PLAN: To continue close follow-up. The plan is to proceed with repeat endoscopy 6 months following his previous endoscopy. He will return in 6 months for a follow-up visit. His labs were forwarded to his primary, for their review. Thank you, CC: Dr. Gray. Dr. Nikki Acevedo. Dr. Suggs. Dr. Mo. - Time Spent With Patient Time Spent with Patient (in minutes): 30
[2021-04-11 15:04] LABS: MANUAL DIFF FLAG NO
[2021-04-11 15:05] VITALS: BP 120/72; PULSE 77; RESP 20; TEMP 36.5; O2SAT 99; BMI 30.5
[2021-04-11 15:08] LABS: Basophils Percent Auto 0.7 % (0-2); Eosinophils Absolute Auto 0.1 X10*3/uL (0.0-0.4); Hematocrit 33.2 % (42-52); Hemoglobin 11.2 g/dl (14.0-18.0); Lymphocytes Absolute Auto 0.8 X10*3/uL (1.2-4.9); Lymphocytes Percent Auto 27.9 % (20-40); Mean Corpuscular HGB Conc 33.7 g/dl (31.0-36.0); Mean Corpuscular Hemoglobin 29.7 pg (27.0-33.0); Mean Corpuscular Volume 88.1 fL (80-98); Mean Platelet Volume 10.6 fL (9.4-12.4); Monocytes Absolute Auto 0.3 X10*3/uL (0.1-1.2); Monocytes Percent Auto 11.5 % (2-11); Neutrophils Absolute Auto 1.5 X10*3/uL (2.0-8.3); Neutrophils Percent Auto 56.9 % (45-73); Platelet Count 41 X10*3/uL (160-400); Red Blood Count 3.77 X10*6/uL (4.60-5.80); Red Cell Distribution Width 14.3 % (11.0-16.0); White Blood Count 2.7 X10*3/uL (4.8-10.8)
[2021-04-11 15:26] LABS: Alanine Aminotransferase 22 U/L (0-40); Albumin Level 3.3 g/dL (3.5-5.0); Alkaline Phosphatase 120 U/L (39-117); Anion Gap 9 (12-20); Aspartate Amino Transferase 32 U/L (5-37); Bilirubin Total 1.3 mg/dL (0.0-1.0); Blood Urea Nitrogen 9 mg/dL (9-16); Calcium 8.5 mg/dL (8.4-10.2); Carbon Dioxide 27 mmol/L (22-29); Chloride 109 mmol/L (96-108); Creatinine Clr Calc Pharmacy 76.5; Estimated Glomerular Filt Rate > 60; Glucose Random 308 mg/dL (60-115); Potassium 4.2 mmol/L (3.3-5.1); Sodium 141 mmol/L (135-145); Total Protein 6.4 g/dL (6.5-8.0)
--- NOTE | 2021-04-11 15:35 | MHC.HEMONCMA ---
Pt came in for hem follow up and states they are doing well. clinical summary was updated and labs were drawn. pt will be seen on 08/15/21 for f/u.
[2021-08-15 13:38] VITALS: BP 124/65; PULSE 88; RESP 18; TEMP 36.6; O2SAT 100; BMI 30.9
--- NOTE | 2021-08-15 13:38 | PM.HEMONCPN ---
Medical Summary - Medical Summary Date of Service: 08/15/21 Chief complaint: Follow-up for: Adenocarcinoma of the esophagus. Medical Summary: Diagnosis: Adenocarcinoma of the esophagus, of the lower end. Current Therapy: 1. Combined modality therapy with radiation along with weekly carboplatin and Taxol, had 4 weeks, Completed 08/21/2017. 2. Had disease recurrence, seen at the EG junction on endoscopy on October 27, 2020. Completed re- radiation, few months ago. Interval History Interval history: This is a pleasant 60 year-old gentleman, here for a follow-up visit. He tells me he has been doing well. He gets tired at times. He is eating well. Denies dysphagia nor odynophagia. He tells me he has some blood vessels growth in his eyes. He is under the care of [facility] in [place]. They are monitoring it for now. He denies any major visual complaints. No headache, he gets occasional dizziness. He denies easy fatigability, he is very active around the house. Denies chest pain or trouble breathing. No cough no sputum. He denies abdominal pain nausea vomiting heartburn indigestion. Bowels are working without any gross blood in it. He enjoys a good appetite. He has lost a little weight. He had an upper endoscopy on 02/12/[address] Suggs. Did not reveal any residual cancer. He is on a new medication for diabetes. It does appear to be helping. Blood sugars are in the range of 118-120. He is in good spirits. Rest of the review of systems is unremarkable. Previous history: He completed re irradiation in May. He tolerated it well for the most part. He did not develop any swallowing difficulty however he did end up with a cold and a cough which lasted about 5 weeks. It has resolved now. He had a stroke several months ago. He went through a course physical therapy. He still has residual right upper extremity weakness. He is trying to stay active. He does yard work at home. He denies any dysphagia or odynophagia. Review of Systems - Constitutional Reports system reviewed and no additional complaints, except as documented, Reports lack of energy - Eyes Reports system reviewed and no additional complaints, except as documented - ENT Reports system reviewed and no additional complaints, except as documented - Cardiovascular Reports system reviewed and no additional complaints, except as documented - Respiratory Reports no additional respiratory complaints - Gastrointestinal Reports system reviewed and no additional complaints, except as documented - Genitourinary Genitourinary: Reports no additional male genitourinary complaints - Musculoskeletal Reports system reviewed and no additional complaints, except as documented - Integumentary/Breasts Skin/Breast: Reports no additional skin complaints - Neurologic Reports system reviewed and no additional complaints, except as documented, Reports abnormal gait, Reports focal weakness - Psychiatric Reports system reviewed and no additional complaints, except as documented - Endocrine Reports no additional endocrine complaints - Hematologic/Lymphatic Reports system reviewed and no additional complaints, except as documented - Allergic/Immunologic Reports system reviewed and no additional complaints, except as documented PMFSH Medical History: Medical History (Last Updated 08/21/21 @ 18:46 by Nikhil Gray, [facility]) Adenocarcinoma of lower esophagus Alcoholic cirrhosis Anemia Constipation Diabetes Elevated ferritin Esophageal varices Esophagus, carcinoma Hepatic cirrhosis Hepatitis C Hx of splenomegaly Hyperlipidemia LDL goal <70 Male circumcision Seizure disorder Stroke Stroke Thrombocytopenia Type 2 diabetes mellitus with diabetic polyneuropathy Type 2 diabetes mellitus with hyperglycemia Functional capacity: independent ambulation Patient : No Family History: Family History (Last Reviewed 08/15/21 @ 13:41 by Deborah Bah CMA) Father No problems noted. Mother Diabetes mellitus Surgical History: Surgical History (Last Reviewed 08/15/21 @ 13:41 by Deborah Bah CMA) Hx of circumcision Hx of colonoscopy Hx of endoscopy Social History: Social History (Last Updated 08/15/21 @ 13:42 by Deborah Bah CMA) Living Situation History: Household Members: Spouse Household Members Other:: Spouse: Antoni Housing: House Are you a primary care management specialist to a significant other at home: No Do you presently have visiting nurse or other home services: No Tobacco History: Patient Tobacco Use Status: Former Tobacco user Tobacco use type: Cigarette Years Smoked: 10 Smoke Quit Date: 1979 e-Cigarette/Vaping Use: Never Used Second Hand Smoke Exposure: No Occupation Assessmet: service: No Current occupational status: disabled Oncology Screenings - ECOG Performance Status ECOG Performance Status: 0 Home Medications and Allergies Home Medications Medication Instructions Recorded Confirmed Type cholecalciferol (vitamin D3) 25 25 mcg PO DAILY 04/06/20 08/15/21 History mcg (1,000 unit) tablet (Vitamin D3) lancets 33 gauge #100 ea 08/15/20 08/15/21 History pen needle, diabetic 31 gauge x #1200 ea 08/15/20 08/15/21 History 5/16 Allergies Allergy/AdvReac Type Severity Reaction Status Date / Time No Known Allergies Allergy Verified 08/15/21 13:42 Exam Vital signs: Vital Signs Temp 97.7 F 04/11/21 15:05 Pulse 77 04/11/21 15:05 Resp 20 04/11/21 15:05 BP 120/72 04/11/21 15:05 Pulse Ox 99 04/11/21 15:05 Weight 88.5 kg BMI result Body Mass Index 30.5 - Constitutional Present: no acute distress - Routine HEENT Exam Head: Present: normal inspection Eye: Present: normal appearance ENT: Present: mucous membranes moist - Routine Neck Exam Present: full ROM - Routine Respiratory Exam Present: CTAB - Routine Cardiovascular Exam Cardiovascular: Present: RRR, S1, S2 - Routine Abdominal Exam Present: soft, nontender - Routine Extremities Exam Present: nontender - Routine Back/Spine/Pelvis Exam Back/Spine: Present: full ROM - Routine Skin Exam Present: intact - Routine Neurological Exam Present: alert, oriented X3 - Detailed Neurological Exam: Coma Scale Eye Opening: Spontaneous (4) - Routine Psychiatric Exam Present: normal affect Data - Labs CBC & Chem 7: 08/15/21 13:40 08/15/21 13:40 Assessment and Plan Patient Active problem list reviewed?: Yes (1) Adenocarcinoma of lower esophagus Status: Acute Assessment and plan: This is a pleasant, 59 year-old gentleman with history of Hepatitis C, Esophageal Adenocarcinoma. He completed combined modality therapy with radiation plus chemotherapy, in August of 2017. CT chest with contrast performed 10/22/17 showed wall thickening of the distal thoracic esophagus, enlarged paraesophageal varices, no enlarged hilar or mediastinal lymph nodes, enlarged spleen and mild upper abdominal lymphadenopathy, largest lymph node in the periportal region measuring 1.5x1.3 cm. Also a nonspecific 1 cm lucent lesion in the superior endplate of T7 would whole-body, ? metastasis. Several nonspecific lytic lesions in the thoracic and visualized upper lumbar vertebral bodies questionable for possible metastatic disease. He denies any dysphagia or odynophagia. Routine endoscopy reveals disease recurrence, with a 2 cm mass just below the EG junction. Pathology confirms: Moderately differentiated Adenocarcinoma. A PET scan, was denied. CT scan of the chest from November 24 revealed: 1. No pulmonary nodule, mass or groundglass opacity is seen. 2. There is no thoracic lymphadenopathy. 3. There is are cirrhotic changes of the liver redemonstrated, without focal mass seen. 4. There is interim placement of a portocaval shunt. The splenic and mesenteric veins appear patent. Upper abdominal varices are less pronounced than seen. 5. There is stable wall thickening of the gastroesophageal junction. 6. No abdominopelvic metastasis, free fluid or lymphadenopathy is seen. Unfortunately, he is really not a surgical candidate. He has already had radiation therapy so that is not an option. He underwent an endoscopic ultrasound to evaluate for the thickness of the tumor, and possible adenopathy. This was done on January [address] Elizabet Gilliam. Findings: Endoscopy revealed a 1.5-2 cm GE junction mass, that appeared to be semi pedunculated. Evidence of mild portal hypertensive gastropathy in the stomach. Two small polyps noted in the stomach 1 in the gastric body and other just proximal to the pyloric sphincter. Polyps appeared reactive. Endoscopic ultrasound: Tumor was hypoechoic 1.8 x 1.4 cm, likely T1b, and 0. The MP was intact. Small varices noted in the submucosa. No aortic nor vertebral invasion. Normal celiac takeoff. No obvious lesion in the liver. Normal appearing pancreatic duct. The plan initially was to proceed with photodynamic therapy. That will help to avoid systemic chemotherapy. He has seen Dr. Lucio Mo, at [facility]. His note mentions: Endosonographically, stage T1b. This is a difficult situation. Locally recurrent GE junction adenocarcinoma already subjected to 50 Gy of radiation. He has no regional nor distant metastatic disease. Ideally surgical resection should be done but his comorbidities that too significant to allow for a safe surgery. Endoscopic submucous ectomy still relatively early in the evolution of the technique and since this lesions pans 2.5 cm in longitudinal dimension that may be too much for endoscopic resection. We have to consider other local ablative modalities to take care of this recurrence. He was given a couple of options: 1. Photodynamic therapy. 2. Brachytherapy. He would favor brachy therapy, since his visceral disease is worrisome, in regards to the bleeding from his variceal disease. That would be more of a risk with photodynamic therapy. (he is not in favor of having to hide from light for 4-6 weeks if he undergoes photodynamic therapy.) Overall the safety profile of brachytherapy would be higher than photodynamic therapy. It also has a better track record. I called the Radiation Oncology Department at [facility] to expedite his appointment for brachy therapy there. D/W Radiation therapist at [facility]. They are recommending re-irradiation. I had discussed with Dr. Sarmiento at [facility], to set it up here, for his convenience. His appointment was on April 12. She did discussed the option of endoscopic resection with the surgeon however they were not keen on it on account of his history of varices. He had a PET scan done, on 05/11/2020 at [facility] which revealed: Focal area of distal esophageal wall thickening with mildly increased activity, SUV max of 5.5. No findings suggestive of distal metastatic disease. He was then referred to Dr. Sarmiento. He completed re-irradiation at [facility], few months ago. He had repeat upper endoscopy by Dr. Suggs, on 09/25. This revealed: Esophagus: The esophagus showed changes consistent with his prior radiation therapy. There was a nodular area just below the EG junction with some inflammatory change. This was biopsied. There were no visible esophageal varices or gastric varices. Stomach: The stomach showed no evidence of masses or ulcers. The previously identified gastric polyps were present. They appeared unchanged from his prior examination. Biopsies were obtained from the gastric polyps. Duodenum: The bulb and second portion were normal. 1. Adenocarcinoma of the EG junction, status post biopsy. 2. Gastric polyps. Unfortunately, the biopsy results revealed: Ulcerated cardiac type mucosa with high-grade dysplasia/in Situ adenocarcinoma. No squamous epithelium seen. This could be residual after radiation and may disappear with the tincture of time. However there is no invasive component, for which any medical treatment could be recommended. He had a left CVA with right-sided weakness. He had PT done. He still has residual right upper extremity weakness but otherwise doing well. Denies any GI complaints. Ultrasound of the abdomen from 02/14/21 revealed: Fatty infiltration of the liver. Patent TIPS. Splenomegaly. He had an upper endoscopy on the 02/12/[address] Suggs which revealed: No evidence of recurrent adenocarcinoma at the EG junction. He has pancytopenia likely related to his liver disease and cirrhosis. His blood count has dropped significantly, even though he is not very symptomatic. Hemoglobin is down to 7.2 today. Iron studies: 20/458/4/6. B12 452. Folate 11.2. Concern is for disease recurrence versus another source of GI blood loss. PLAN: He will return tomorrow morning to receive 2 units of packed RBCs. Will arrange for a follow-up visit with Dr. Suggs. He will need further evaluation with an upper endoscopy and a colonoscopy. He will return in 2 months for a follow-up visit. Thank you, CC: Dr. Gray. Dr. Nikki Acevedo. Dr. Suggs. Dr. Mo. - Time Spent With Patient Time Spent with Patient (in minutes): 30
[2021-08-15 13:45] LABS: MANUAL DIFF FLAG NO
[2021-08-15 13:54] LABS: Basophils Percent Auto 0.3 % (0-2); Eosinophils Absolute Auto 0.1 X10*3/uL (0.0-0.4); Eosinophils Percent Auto 3.9 % (0-4); Hematocrit 27.1 % (42.0-52.0); Hemoglobin 7.2 g/dl (14.0-18.0); Imm Gran Abs Auto 0.01 X10*3/uL (0.00-0.03); Imm Gran Pct Auto 0.3 % (0.0-0.4); Lymphocytes Absolute Auto 0.7 X10*3/uL (1.2-4.9); Lymphocytes Percent Auto 20.1 % (20-40); Mean Corpuscular HGB Conc 26.6 g/dl (31.0-36.0); Mean Corpuscular Hemoglobin 17.5 pg (27.0-33.0); Mean Corpuscular Volume 65.8 fL (80.0-98.0); Monocytes Absolute Auto 0.4 X10*3/uL (0.1-1.2); Monocytes Percent Auto 10.8 % (2-11); Neutrophils Absolute Auto 2.2 x10*3/uL (2.0-8.3); Neutrophils Percent Auto 64.6 % (45-73); Platelet Count 68 X10*3/uL (160-400); Red Blood Count 4.12 X10*6/uL (4.60-5.80); Red Cell Distribution Width 18.7 % (11.0-16.0); White Blood Count 3.3 X10*3/uL (4.8-10.8)
[2021-08-15 14:00] LABS: Estimated Average Glucose 171 mg/dL; Hemoglobin A1c % 7.6 %
[2021-08-15 14:11] LABS: Alanine Aminotransferase 14 U/L (0-40); Albumin Level 3.6 g/dL (3.5-5.0); Alkaline Phosphatase 100 U/L (39-117); Anion Gap 9 (12-20); Aspartate Amino Transferase 23 U/L (5-37); Bilirubin Total 0.8 mg/dL (0.0-1.0); Blood Urea Nitrogen 11 mg/dL (9-16); Calcium 9.1 mg/dL (8.4-10.2); Carbon Dioxide 25 mmol/L (22-29); Chloride 110 mmol/L (96-108); Creatinine Clr Calc Pharmacy 95.3; Estimated Glomerular Filt Rate > 60; Glucose Random 228 mg/dL (60-115); Potassium 4.2 mmol/L (3.3-5.1); Sodium 140 mmol/L (135-145); Total Protein 6.8 g/dL (6.5-8.0)
[2021-08-15 14:57] LABS: Iron 20 mcg/dL (45-160); Lactate Dehydrogenase 183 U/L (118-273); Percent Iron Saturation 4 % (15-50); Total Iron Binding Capacity 450 mcg/dL (228-428); Unsaturated Iron Binding 430 ug/dL
[2021-08-15 15:17] LABS: Ferritin 6 ng/mL (20-250)
[2021-08-15 15:36] LABS: Folate 11.2 ng/mL (> or = 4.0); Vitamin B12 452 pg/mL (200-900)
--- NOTE | 2021-08-15 15:56 | MHC.HEMONCMA ---
Patient was in for follow up. Clinical summary reviewed and updated, VSS. Labs were drawn with hgb 7.2. Patient will return tomorrow for a blood transfusion. Patient should expect a call from Dr. Vaz office to schedule an appt for endoscopy.
[2021-08-16] VITALS (7 sets, daily range): BP systolic 118–147; BP diastolic 61–74; PULSE 88–100; RESP 17–18; TEMP 35.9–36.6; O2SAT 96
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
--- NOTE | 2021-08-16 14:57 | MHC.HEMONC ---
Pt here for blood transfusion. H & H 7.08/18.1 Consent for blood transfusion obtained. # 20 angio inserted in left forearm with blood return noted. 0.9% NS infusing. Vital signs stable, breath sounds clear. 2 units PRBC's given as ordered-tolerated well. Dr Crawford into see pt. Pt awaiting appointment with Dr Suggs. Vital signs remained stable with both units of blood with clear breath sounds. Peripheral IV removed-no edema or redness at site. Follow up appointment scheduled. Discharge packet given.
[2021-09-24 11:06] VITALS: BP 126/62; PULSE 73; RESP 14; TEMP 36.3; O2SAT 99; BMI 31.2
--- NOTE | 2021-09-24 11:18 | P.PNHO_ITS ---
Medical Summary - Medical Summary Date of Service: 09/24/21 Chief complaint: Follow-up for: CA esophagus. Medical Summary: Diagnosis: Adenocarcinoma of the esophagus, of the lower end. Current Therapy: 1. Combined modality therapy with radiation along with weekly carboplatin and Taxol, had 4 weeks, Completed 08/21/2017. 2. Had disease recurrence, seen at the EG junction on endoscopy on October 27, 2020. Completed re- radiation, few months ago. Interval History Interval history: This is a pleasant 60 year-old gentleman, here for a follow-up visit. He tells me he has been doing well. His energy level is reasonable. He gets tired at times. He has a hard time sleeping at night. He is eating well. Denies dysphagia nor odynophagia. He tells me he has some blood vessels growth in his eyes. He is under the care of [facility] in [place]. They are monitoring it for now. He denies any major visual complaints. No headache, he gets occasional dizziness. He denies easy fatigability, he is very active around the house. Denies chest pain or trouble breathing. No cough no sputum. He denies abdominal pain nausea vomiting heartburn indigestion. Bowels are working without any gross blood in it. He enjoys a good appetite. He has lost a little weight. He had an upper endoscopy on 02/12/[address] Suggs. Did not reveal any residual cancer. He is on a new medication for diabetes. It does appear to be helping. Blood sugars are in the range of 118-120. He is in good spirits. Rest of the review of systems is unremarkable. He underwent an upper endoscopy and colonoscopy on 09/[address] Suggs. Results: UPPER ENDOSCOPY: Esophagus: The esophagus showed changes consistent with radiation therapy over the lower 1/3 with small areas of petechiae measuring 1-2 mm. There was no evidence of recurrent adenocarcinoma at the EG junction. No biopsies were obtained due to the patient's history of esophageal varices and thrombocytopenia. No varices were seen. Stomach: The stomach showed no evidence of masses or ulcers. There were 2 polyps present at the antrum near the pyloric channel. These had been seen on prior examinations and they were re-biopsied. The largest measured approximately 15 mm x 20 mm. Duodenum: The bulb and second portion were normal. COLONOSCOPY: The terminal ileum was normal. The prep was excellent. There was an 8 mm nonbleeding AVM on the ileocecal valve. No other AVMs were identified. No polyps were seen. Retroflexed examination showed moderate-sized internal hemorrhoids. IMPRESSION: 1. Radiation changes to the lower esophagus. 2. Gastric polyps. 3. Colonic arteriovenous malformation. RECOMMENDATION: 1. Follow up the biopsy results. 2. Repeat colonoscopy is recommended in 10 years for average risk individuals. 3. Continue present therapy. Previous history: He completed re irradiation in May. He tolerated it well for the most part. He did not develop any swallowing difficulty however he did end up with a cold and a cough which lasted about 5 weeks. It has resolved now. He had a stroke several months ago. He went through a course physical therapy. He still has residual right upper extremity weakness. He is trying to stay active. He does yard work at home. He denies any dysphagia or odynophagia. Review of Systems - Neurologic Reports system reviewed and no additional complaints, except as documented, Reports abnormal gait, Reports focal weakness PMFSH Medical History: Medical History (Last Reviewed 09/24/21 @ 11:09 by Deborah Bah [facility]) Adenocarcinoma of lower esophagus Alcoholic cirrhosis Anemia Constipation Diabetes Elevated ferritin Esophageal varices Esophagus, carcinoma Hepatic cirrhosis Hepatitis C Hx of splenomegaly Hyperlipidemia LDL goal <70 Male circumcision Seizure disorder Stroke Thrombocytopenia Type 2 diabetes mellitus with diabetic polyneuropathy Type 2 diabetes mellitus with hyperglycemia Functional capacity: independent ambulation Family History: Family History (Last Reviewed 09/24/21 @ 11:10 by Debroah Bah CMA) Father No problems noted. Mother Diabetes mellitus Surgical History: Surgical History (Last Updated 09/24/21 @ 11:10 by Deborah Bah CMA) Hx of circumcision Hx of colonoscopy Hx of endoscopy Social History: Social History (Last Updated 09/24/21 @ 11:11 by Deborah Bah [facility]) Living Situation History: Household Members: Spouse Household Members Other:: Spouse: Antoni Housing: House Are you a primary customer care representative to a significant other at home: No Do you presently have visiting nurse or other home services: No Alcohol History Details: 1. How often do you have a drink containing alcohol?: a. Never Tobacco History: Patient Tobacco Use Status: Former Tobacco user Tobacco use type: Cigarette Years Smoked: 10 Smoked in Last 30 Days: No Smoke Quit Date: 40 years ago e-Cigarette/Vaping Use: Never Used Second Hand Smoke Exposure: No Substance Use History: Use of substances other than those prescribed or required for medical reasons : No Domestic Abuse History: Have you been hit, kicked, punched, or otherwise hurt by someone within the past year? If so, by whom?: No Do you feel safe in your current relationship?: Yes Advance Directives: Advance Directives: No Advance Directives Information Provided: No Homicidal Assessment: Do you have thoughts of harming others: None Do you have a plan to hurt others: No Plan Do you have the means to hurt others: No Nutrition Assessment: Recently lost weight without trying: No Patient : No Occupation Assessmet: service: No Current occupational status: disabled Home Medications and Allergies Home Medications Medication Instructions Recorded Confirmed Type cholecalciferol (vitamin D3) 25 25 mcg PO DAILY 04/06/20 09/24/21 History mcg (1,000 unit) tablet (Vitamin D3) lancets 33 gauge #100 ea 08/15/20 09/24/21 History pen needle, diabetic 31 gauge x #1200 ea 08/15/20 09/24/21 History 5/16 Allergies Allergy/AdvReac Type Severity Reaction Status Date / Time No Known Allergies Allergy Verified 09/24/21 11:11 Exam Vital signs: Vital Signs Temp 97.3 F 09/24/21 11:06 Pulse 73 09/24/21 11:06 Resp 14 09/24/21 11:06 BP 126/62 09/24/21 11:06 Pulse Ox 99 09/24/21 11:06 Intake & Output 09/23/21 09/24/21 09/24/21 18:59 06:59 18:59 Other: Weight 90.5 kg [place] Weight in Grams [id number] Weight 90.5 kg BMI result Body Mass Index 31.2 - Constitutional Present: no acute distress - Routine HEENT Exam Head: Present: normal inspection Eye: Present: normal appearance ENT: Present: mucous membranes moist - Routine Neck Exam Present: full ROM - Routine Respiratory Exam Present: CTAB - Routine Cardiovascular Exam Cardiovascular: Present: RRR, S1, S2 - Routine Abdominal Exam Present: soft, nontender - Routine Extremities Exam Present: nontender - Routine Back/Spine/Pelvis Exam Back/Spine: Present: full ROM - Routine Skin Exam Present: intact - Routine Neurological Exam Present: alert, oriented X3 - Detailed Neurological Exam: Coma Scale Eye Opening: Spontaneous (4) - Routine Psychiatric Exam Present: normal affect Data - Labs CBC & Chem 7: 09/24/21 11:38 09/24/21 11:38 Assessment and Plan Patient Active problem list reviewed?: Yes (1) Adenocarcinoma of lower esophagus Status: Acute Assessment and plan: This is a pleasant, 59 year-old gentleman with history of Hepatitis C, Esophageal Adenocarcinoma. He completed combined modality therapy with radiation plus chemotherapy, in August of 2017. CT chest with contrast performed 10/22/17 showed wall thickening of the distal thoracic esophagus, enlarged paraesophageal varices, no enlarged hilar or mediastinal lymph nodes, enlarged spleen and mild upper abdominal lymphadenopathy, largest lymph node in the periportal region measuring 1.5x1.3 cm. Also a nonspecific 1 cm lucent lesion in the superior endplate of T7 would whole-body, ? metastasis. Several nonspecific lytic lesions in the thoracic and visualized upper lumbar vertebral bodies questionable for possible metastatic disease. He denies any dysphagia or odynophagia. Routine endoscopy reveals disease recurrence, with a 2 cm mass just below the EG junction. Pathology confirms: Moderately differentiated Adenocarcinoma. A PET scan, was denied. CT scan of the chest from November 24 revealed: 1. No pulmonary nodule, mass or groundglass opacity is seen. 2. There is no thoracic lymphadenopathy. 3. There is are cirrhotic changes of the liver redemonstrated, without focal mass seen. 4. There is interim placement of a portocaval shunt. The splenic and mesenteric veins appear patent. Upper abdominal varices are less pronounced than seen. 5. There is stable wall thickening of the gastroesophageal junction. 6. No abdominopelvic metastasis, free fluid or lymphadenopathy is seen. Unfortunately, he is really not a surgical candidate. He has already had radiation therapy so that is not an option. He underwent an endoscopic ultrasound to evaluate for the thickness of the tumor, and possible adenopathy. This was done on January [address] Elizabet Gilliam. Findings: Endoscopy revealed a 1.5-2 cm GE junction mass, that appeared to be semi pedunculated. Evidence of mild portal hypertensive gastropathy in the stomach. Two small polyps noted in the stomach 1 in the gastric body and other just proximal to the pyloric sphincter. Polyps appeared reactive. Endoscopic ultrasound: Tumor was hypoechoic 1.8 x 1.4 cm, likely T1b, and 0. The MP was intact. Small varices noted in the submucosa. No aortic nor vertebral invasion. Normal celiac takeoff. No obvious lesion in the liver. Normal appearing pancreatic duct. The plan initially was to proceed with photodynamic therapy. That will help to avoid systemic chemotherapy. He has seen Dr. Lucio Mo, at [facility]. His note mentions: Endosonographically, stage T1b. This is a difficult situation. Locally recurrent GE junction adenocarcinoma already subjected to 50 Gy of radiation. He has no regional nor distant metastatic disease. Ideally surgical resection should be done but his comorbidities that too significant to allow for a safe surgery. Endoscopic submucous ectomy still relatively early in the evolution of the technique and since this lesions pans 2.5 cm in longitudinal dimension that may be too much for endoscopic resection. We have to consider other local ablative modalities to take care of this recurrence. He was given a couple of options: 1. Photodynamic therapy. 2. Brachytherapy. He would favor brachy therapy, since his visceral disease is worrisome, in regards to the bleeding from his variceal disease. That would be more of a risk with photodynamic therapy. (he is not in favor of having to hide from light for 4-6 weeks if he undergoes photodynamic therapy.) Overall the safety profile of brachytherapy would be higher than photodynamic therapy. It also has a better track record. I called the Radiation Oncology Department at [facility] to expedite his appointment for brachy therapy there. D/W Radiation therapist at [facility]. They are recommending re-irradiation. I had discussed with Dr. Sarmiento at [facility], to set it up here, for his convenience. His appointment was on April 12. She did discussed the option of endoscopic resection with the surgeon however they were not keen on it on account of his history of varices. He had a PET scan done, on 05/11/2020 at [facility] which revealed: Focal area of distal esophageal wall thickening with mildly increased activity, SUV max of 5.5. No findings suggestive of distal metastatic disease. He was then referred to Dr. Sarmiento. He completed re-irradiation at [facility], few months ago. He had repeat upper endoscopy by Dr. Suggs, on 09/25. This revealed: Esophagus: The esophagus showed changes consistent with his prior radiation the rapy. There was a nodular area just below the EG junction with some inflammatory change. This was biopsied. There were no visible esophageal varices or gastric varices. Stomach: The stomach showed no evidence of masses or ulcers. The previously identified gastric polyps were present. They appeared unchanged from his prior examination. Biopsies were obtained from the gastric polyps. Duodenum: The bulb and second portion were normal. 1. Adenocarcinoma of the EG junction, status post biopsy. 2. Gastric polyps. Unfortunately, the biopsy results revealed: Ulcerated cardiac type mucosa with high-grade dysplasia/in Situ adenocarcinoma. No squamous epithelium seen. This could be residual after radiation and may disappear with the tincture of time. However there is no invasive component, for which any medical treatment could be recommended. He had a left CVA with right-sided weakness. He had PT done. He still has residual right upper extremity weakness but otherwise doing well. Denies any GI complaints. Ultrasound of the abdomen from 02/14/21 revealed: Fatty infiltration of the liver. Patent TIPS. Splenomegaly. He had an upper endoscopy on the 02/12/[address] Suggs which revealed: No evidence of recurrent adenocarcinoma at the EG junction. He has pancytopenia likely related to his liver disease and cirrhosis. His blood count had dropped significantly, at his last visit even though he was not very symptomatic. Hemoglobin went down to 7.2 today. Iron studies: 20/458/4/6. B12 452. Folate 11.2. Concern is for disease recurrence versus another source of GI blood loss. He was given 2 units of packed RBCs. He underwent an upper endoscopy on 09/[address] Suggs. 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 The colonoscopy was negative. PLAN: He has been seen by Dr. Sarmiento from radiation therapy, last week. I touched base with her. She suggested to try doubling up the Protonix dose and adding Carafate. Will do that. He will return in a month for a follow-up visit. Thank you, CC: Dr. Gray. Dr. Nikki Acevedo. Dr. Suggs. Dr. Mo. - Time Spent With Patient Time Spent with Patient (in minutes): 30
[2021-09-24 11:46] LABS: MANUAL DIFF FLAG NO
[2021-09-24 11:50] LABS: Eosinophils Absolute Auto 0.2 X10*3/uL (0.0-0.4); Eosinophils Percent Auto 4.9 % (0-4); Hematocrit 34.5 % (42.0-52.0); Hemoglobin 9.6 g/dl (14.0-18.0); Imm Gran Abs Auto 0.01 X10*3/uL (0.00-0.03); Imm Gran Pct Auto 0.3 % (0.0-0.4); Lymphocytes Absolute Auto 0.8 X10*3/uL (1.2-4.9); Mean Corpuscular HGB Conc 27.8 g/dl (31.0-36.0); Mean Corpuscular Hemoglobin 19.3 pg (27.0-33.0); Mean Corpuscular Volume 69.3 fL (80.0-98.0); Monocytes Absolute Auto 0.3 X10*3/uL (0.1-1.2); Monocytes Percent Auto 10.9 % (2-11); Neutrophils Absolute Auto 1.7 x10*3/uL (2.0-8.3); Neutrophils Percent Auto 55.9 % (45-73); Platelet Count 64 X10*3/uL (160-400); Red Blood Count 4.98 X10*6/uL (4.60-5.80); Red Cell Distribution Width 21.3 % (11.0-16.0)
[2021-09-24 12:07] LABS: Alanine Aminotransferase 22 U/L (0-40); Albumin Level 3.4 g/dL (3.5-5.0); Alkaline Phosphatase 94 U/L (39-117); Anion Gap 9 (12-20); Aspartate Amino Transferase 31 U/L (5-37); Bilirubin Total 1.1 mg/dL (0.0-1.0); Blood Urea Nitrogen 10 mg/dL (9-16); Calcium 8.4 mg/dL (8.4-10.2); Carbon Dioxide 25 mmol/L (22-29); Chloride 112 mmol/L (96-108); Creatinine Clr Calc Pharmacy 100.3; Estimated Glomerular Filt Rate > 60; Glucose Random 135 mg/dL (60-115); Potassium 4.3 mmol/L (3.3-5.1); Sodium 142 mmol/L (135-145); Total Protein 6.4 g/dL (6.5-8.0)
--- NOTE | 2021-09-24 13:56 | MHC.HEMONCMA ---
Pt was in for follow up. Clinical summary reviewed and updated, VSS. Labs were drawn. Pt to return in 1 month.
--- NOTE | 2021-10-25 13:55 | P.PNHO_ITS ---
Medical Summary - Medical Summary Date of Service: 10/25/21 Chief complaint: Follow-up for: Adenocarcinoma of the esophagus. Medical Summary: Diagnosis: Adenocarcinoma of the esophagus, of the lower end. Current Therapy: 1. Combined modality therapy with radiation along with weekly carboplatin and Taxol, had 4 weeks, Completed 08/21/2017. 2. Had disease recurrence, seen at the EG junction on endoscopy on October 27, 2020. Completed re- radiation, few months ago. Interval History Interval history: This is a pleasant 60 year-old gentleman, here for a follow-up visit. He tells me he has been doing well. His energy level is reasonable. He is not too fatigued. Denies dysphagia nor odynophagia. He is eating well. He was mowing the yd today. His back hurts. No headache, he gets occasional dizziness. He denies easy fatigability, he is very active around the house. Denies chest pain or trouble breathing. No cough no sputum. He denies abdominal pain nausea vomiting heartburn indigestion. Bowels are working without any gross blood in it. He enjoys a good appetite. He has lost a little weight. He had an upper endoscopy on 02/12/[address] Suggs. Did not reveal any residual cancer. He is on a new medication for diabetes. It does appear to be helping. Blood sugars are in the range of 118-120. He is in good spirits. Rest of the review of systems is unremarkable. He tells me he has some blood vessels growth in his eyes. He is under the care of [facility] in [place]. They are monitoring it for now. He denies any major visual complaints. Interim history: He underwent an upper endoscopy and colonoscopy on 09/[address] Suggs. Results: UPPER ENDOSCOPY: Esophagus: The esophagus showed changes consistent with radiation therapy over the lower 1/3 with small areas of petechiae measuring 1-2 mm. There was no evidence of recurrent adenocarcinoma at the EG junction. No biopsies were obtained due to the patient's history of esophageal varices and thrombocyt openia. No varices were seen. Stomach: The stomach showed no evidence of masses or ulcers. There were 2 polyps present at the antrum near the pyloric channel. These had been seen on prior examinations and they were re-biopsied. The largest measured approximately 15 mm x 20 mm. Duodenum: The bulb and second portion were normal. COLONOSCOPY: The terminal ileum was normal. The prep was excellent. There was an 8 mm nonbleeding AVM on the ileocecal valve. No other AVMs were identified. No polyps were seen. Retroflexed examination showed moderate-sized internal hemorrhoids. IMPRESSION: 1. Radiation changes to the lower esophagus. 2. Gastric polyps. 3. Colonic arteriovenous malformation. RECOMMENDATION: 1. Follow up the biopsy results. 2. Repeat colonoscopy is recommended in 10 years for average risk individuals. 3. Continue present therapy. Previous history: He completed re irradiation in May. He tolerated it well for the most part. He did not develop any swallowing difficulty however he did end up with a cold and a cough which lasted about 5 weeks. It has resolved now. He had a stroke several months ago. He went through a course physical therapy. He still has residual right upper extremity weakness. He is trying to stay active. He does yard work at home. He denies any dysphagia or odynophagia. Review of Systems - Constitutional Reports system reviewed and no additional complaints, except as documented, Reports weight gain, Denies fatigue, Denies lack of energy, Denies weakness, Denies weight loss - Eyes Reports system reviewed and no additional complaints, except as documented, Denies blurry vision - ENT Reports system reviewed and no additional complaints, except as documented - Cardiovascular Reports system reviewed and no additional complaints, except as documented, Denies chest pain at rest - Respiratory Reports no additional respiratory complaints, Denies cough - Gastrointestinal Reports system reviewed and no additional complaints, except as documented, Denies black, tarry stools, Denies feeling full early, Denies dyspepsia - Genitourinary Genitourinary: Reports no additional male genitourinary complaints, Denies blood in urine - Musculoskeletal Reports system reviewed and no additional complaints, except as documented, Reports back pain - Integumentary/Breasts Skin/Breast: Reports no additional skin complaints - Neurologic Reports system reviewed and no additional complaints, except as documented, Reports abnormal gait, Reports focal weakness - Psychiatric Reports system reviewed and no additional complaints, except as documented, Denies abnormal sleep pattern - Endocrine Reports no additional endocrine complaints, Denies excessive sweating - Hematologic/Lymphatic Reports system reviewed and no additional complaints, except as documented, Denies easy bruising - Allergic/Immunologic Reports system reviewed and no additional complaints, except as documented, Denies GI upset with certain foods PMFSH Medical History: Medical History (Last Reviewed 10/25/21 @ 14:03 by Deborah Bah CMA) Adenocarcinoma of lower esophagus Alcoholic cirrhosis Anemia Constipation Diabetes Elevated ferritin Esophageal varices Esophagus, carcinoma Hepatic cirrhosis Hepatitis C Hx of splenomegaly Hyperlipidemia LDL goal <70 Male circumcision Seizure disorder Stroke Thrombocytopenia Type 2 diabetes mellitus with diabetic polyneuropathy Type 2 diabetes mellitus with hyperglycemia Functional capacity: independent ambulation Patient : No Family History: Family History (Last Reviewed 10/25/21 @ 14:04 by Deborah Bah CMA) Father No problems noted. Mother Diabetes mellitus Surgical History: Surgical History (Last Reviewed 10/25/21 @ 14:03 by Deborah Bah CMA) Hx of circumcision Hx of colonoscopy Hx of endoscopy Social History: Social History (Last Reviewed 10/25/21 @ 14:04 by Deborah Bah CMA) Living Situation History: Household Members: Spouse Household Members Other:: Spouse: Antoni Housing: House Are you a primary lawn care specialist to a significant other at home: No Do you presently have visiting nurse or other home services: No Alcohol History Details: 1. How often do you have a drink containing alcohol?: a. Never Tobacco History: Patient Tobacco Use Status: Former Tobacco user Tobacco use type: Cigarette Years Smoked: 10 Smoked in Last 30 Days: No Smoke Quit Date: 40 years ago e-Cigarette/Vaping Use: Never Used Second Hand Smoke Exposure: No Substance Use History: Use of substances other than those prescribed or required for medical reasons : No Domestic Abuse History: Have you been hit, kicked, punched, or otherwise hurt by someone within the past year? If so, by whom?: No Do you feel safe in your current relationship?: Yes Advance Directives: Advance Directives: No Advance Directives Information Provided: No Homicidal Assessment: Do you have thoughts of harming others: None Do you have a plan to hurt others: No Plan Do you have the means to hurt others: No Nutrition Assessment: Recently lost weight without trying: No Patient : No Occupation Assessmet: service: No Current occupational status: disabled Oncology Screenings - ECOG Performance Status ECOG Performance Status: 0 Home Medications and Allergies Home Medications Medication Instructions Recorded Confirmed Type cholecalciferol (vitamin D3) 25 25 mcg PO DAILY 04/06/20 10/25/21 History mcg (1,000 unit) tablet (Vitamin D3) lancets 33 gauge #100 ea 08/15/20 10/25/21 History pen needle, diabetic 31 gauge x #1200 ea 08/15/20 10/25/21 History 5/16 Allergies Allergy/AdvReac Type Severity Reaction Status Date / Time No Known Allergies Allergy Verified 10/25/21 14:04 Exam Vital signs: Vital Signs Temp 97.3 F 09/24/21 11:06 Pulse 73 09/24/21 11:06 Resp 14 09/24/21 11:06 BP 126/62 09/24/21 11:06 Pulse Ox 99 09/24/21 11:06 Weight 90.5 kg BMI result Body Mass Index 31.2 - Constitutional Present: no acute distress - Routine HEENT Exam Head: Present: normal inspection Eye: Present: normal appearance ENT: Present: mucous membranes moist - Routine Neck Exam Present: full ROM - Routine Respiratory Exam Present: CTAB - Routine Cardiovascular Exam Cardiovascular: Present: RRR, S1, S2 - Routine Abdominal Exam Present: soft, nontender - Routine Extremities Exam Present: nontender - Routine Back/Spine/Pelvis Exam Back/Spine: Present: full ROM - Routine Skin Exam Present: intact - Routine Neurological Exam Present: alert, oriented X3 - Detailed Neurological Exam: Coma Scale Eye Opening: Spontaneous (4) - Routine Psychiatric Exam Present: normal affect Data - Labs CBC & Chem 7: 10/25/21 14:27 10/25/21 14:27 Assessment and Plan Patient Active problem list reviewed?: Yes (1) Adenocarcinoma of lower esophagus Status: Acute Assessment and plan: This is a pleasant, 59 year-old gentleman with history of Hepatitis C, Esophageal Adenocarcinoma. He completed combined modality therapy with radiation plus chemotherapy, in August of 2017. CT chest with contrast performed 10/22/17 showed wall thickening of the distal thoracic esophagus, enlarged paraesophageal varices, no enlarged hilar or mediastinal lymph nodes, enlarged spleen and mild upper abdominal lymphadenopathy, largest lymph node in the periportal region measuring 1.5x1.3 cm. Also a nonspecific 1 cm lucent lesion in the superior endplate of T7 would whole-body, ? metastasis. Several nonspecific lytic lesions in the thoracic and visualized upper lumbar vertebral bodies questionable for possible metastatic disease. He denies any dysphagia or odynophagia. Routine endoscopy reveals disease recurrence, with a 2 cm mass just below the EG junction. Pathology confirms: Moderately differentiated Adenocarcinoma. A PET scan, was denied. CT scan of the chest from November 24 revealed: 1. No pulmonary nodule, mass or groundglass opacity is seen. 2. There is no thoracic lymphadenopathy. 3. There is are cirrhotic changes of the liver redemonstrated, without focal mass seen. 4. There is interim placement of a portocaval shunt. The splenic and mesenteric veins appear patent. Upper abdominal varices are less pronounced than seen. 5. There is stable wall thickening of the gastroesophageal junction. 6. No abdominopelvic metastasis, free fluid or lymphadenopathy is seen. Unfortunately, he is really not a surgical candidate. He has already had radiation therapy so that is not an option. He underwent an endoscopic ultrasound to evaluate for the thickness of the tumor, and possible adenopathy. This was done on January [address] Elizabet Gilliam. Findings: Endoscopy revealed a 1.5-2 cm GE junction mass, that appeared to be semi pedunculated. Evidence of mild portal hypertensive gastropathy in the stomach. Two small polyps noted in the stomach 1 in the gastric body and other just proximal to the pyloric sphincter. Polyps appeared reactive. Endoscopic ultrasound: Tumor was hypoechoic 1.8 x 1.4 cm, likely T1b, and 0. The MP was intact. Small varices noted in the submucosa. No aortic nor vertebral invasion. Normal celiac takeoff. No obvious lesion in the liver. Normal appearing pancreatic duct. The plan initially was to proceed with photodynamic therapy. That will help to avoid systemic chemotherapy. He has seen Dr. Lucio Mo, at [facility]. His note mentions: Endosonographically, stage T1b. This is a difficult situation. Locally recurrent GE junction adenocarcinoma already subjected to 50 Gy of radiation. He has no regional nor distant metastatic disease. Ideally surgical resection should be done but his comorbidities that too significant to allow for a safe surgery. Endoscopic submucous ectomy still relatively early in the evolution of the technique and since this lesions pans 2.5 cm in longitudinal dimension that may be too much for endoscopic resection. We have to consider other local ablative modalities to take care of this recurrence. He was given a couple of options: 1. Photodynamic therapy. 2. Brachytherapy. He would favor brachy therapy, since his visceral disease is worrisome, in regards to the bleeding from his variceal disease. That would be more of a risk with photodynamic therapy. (he is not in favor of having to hide from light for 4-6 weeks if he undergoes photodynamic therapy.) Overall the safety profile of brachytherapy would be higher than photodynamic therapy. It also has a better track record. I called the Radiation Oncology Department at [facility] to expedite his appointment for brachy therapy there. D/W Radiation therapist at [facility]. They are recommending re-irradiation. I had discussed with Dr. Sarmiento at [facility], to set it up here, for his convenience. His appointment was on April 12. She did discussed the option of endoscopic resection with the surgeon however they were not keen on it on account of his history of varices. He had a PET scan done, on 05/11/[address] [facility] which revealed: Focal area of distal esophageal wall thickening with mildly increased activity, SUV max of 5.5. No findings suggestive of distal metastatic disease. He was then referred to Dr. Sarmiento. He completed re-irradiation at [facility], few months ago. He had repeat upper endoscopy by Dr. Suggs, on 09/25. This revealed: Esophagus: The esophagus showed changes consistent with his prior radiation therapy. There was a nodular area just below the EG junction with some inflammatory change. This was biopsied. There were no visible esophageal varices or gastric varices. Stomach: The stomach showed no evidence of masses or ulcers. The previously identified gastric polyps were present. They appeared unchanged from his prior examination. Biopsies were obtained from the gastric polyps. Duodenum: The bulb and second portion were normal. 1. Adenocarcinoma of the EG junction, status post biopsy. 2. Gastric polyps. Unfortunately, the biopsy results revealed: Ulcerated cardiac type mucosa with high-grade dysplasia/in Situ adenocarcinoma. No squamous epithelium seen. This could be residual after radiation and may disappear with the tincture of time. However there is no invasive component, for which any medical treatment could be recommended. He had a left CVA with right-sided weakness. He had PT done. He still has residual right upper extremity weakness but otherwise doing well. Denies any GI complaints. Ultrasound of the abdomen from 02/14/21 revealed: Fatty infiltration of the liver. Patent TIPS. Splenomegaly. He had an upper endoscopy on the 02/12/[address] Suggs which revealed: No evidence of recurrent adenocarcinoma at the EG junction. He has pancytopenia likely related to his liver disease and cirrhosis. His blood count had dropped significantly, at his last visit even though he was not very symptomatic. At his visit on 08/15, his hemoglobin went down to 7.2. Iron studies: 20/458/4/6. B12 452. Folate 11.2. Concern was for disease recurrence versus another source of GI blood loss. He was given 2 units of packed RBCs. He underwent an upper endoscopy on 09/[address] Suggs. This revealed a findings consistent with radiation esophagitis/gastritis. Pathology revealed: Polypoid foveolar hyperplasia with chronic active gastritis, negative for H pylori, intestinal metaplasia and dysplasia. The colonoscopy was negative. He was advised to take the proton pump inhibitor twice a day and at Carafate however he did not take the Carafate. He has been taking oral iron. Hemoglobin from September 13 was 9.6. Today's hemoglobin is 14.4. This is reassuring. PLAN: The plan is to continue to monitor him. Will check his labs monthly. He will return in one month for a follow-up visit. Thank you, CC: Dr. Gray. Dr. Nikki Acevedo. Dr. Suggs. Dr. Mo. - Time Spent With Patient Time Spent with Patient (in minutes): 25
[2021-10-25 14:01] VITALS: BP 108/62; PULSE 76; RESP 14; TEMP 36.3; O2SAT 99; BMI 30.7
[2021-10-25 14:28] LABS: MANUAL DIFF FLAG NO
[2021-10-25 14:46] LABS: Alanine Aminotransferase 26 U/L (0-40); Albumin Level 3.5 g/dL (3.5-5.0); Alkaline Phosphatase 117 U/L (39-117); Anion Gap 10 (12-20); Aspartate Amino Transferase 42 U/L (5-37); Bilirubin Total 1.2 mg/dL (0.0-1.0); Blood Urea Nitrogen 9 mg/dL (9-16); Calcium 9.2 mg/dL (8.4-10.2); Carbon Dioxide 26 mmol/L (22-29); Chloride 111 mmol/L (96-108); Creatinine Clr Calc Pharmacy 78.1; Estimated Glomerular Filt Rate > 60; Glucose Random 230 mg/dL (60-115); Potassium 4.6 mmol/L (3.3-5.1); Sodium 142 mmol/L (135-145); Total Protein 6.9 g/dL (6.5-8.0)
[2021-10-25 14:55] LABS: Basophils Percent Auto 1.3 % (0-2); Eosinophils Absolute Auto 0.2 X10*3/uL (0.0-0.4); Eosinophils Percent Auto 5.5 % (0-4); Hematocrit 45.5 % (42.0-52.0); Imm Gran Abs Auto 0.01 X10*3/uL (0.00-0.03); Imm Gran Pct Auto 0.3 % (0.0-0.4); Lymphocytes Absolute Auto 0.7 X10*3/uL (1.2-4.9); Lymphocytes Percent Auto 22.8 % (20-40); Mean Corpuscular HGB Conc 30.8 g/dl (31.0-36.0); Mean Corpuscular Hemoglobin 24.1 pg (27.0-33.0); Mean Corpuscular Volume 78.4 fL (80.0-98.0); Monocytes Absolute Auto 0.3 X10*3/uL (0.1-1.2); Monocytes Percent Auto 11.1 % (2-11); Neutrophils Absolute Auto 1.8 x10*3/uL (2.0-8.3); Red Cell Distribution Width 27.1 % (11.0-16.0); White Blood Count 3.1 X10*3/uL (4.8-10.8)
[2021-10-25 15:03] LABS: Platelet Count 55 X10*3/uL (160-400)
--- NOTE | 2021-10-25 16:25 | MHC.HEMONCMA ---
Pt was in for follow up. Clinical summary reviewed and updated, VSS. Labs were drawn. Pt to return in 1 month.
--- NOTE | 2021-11-25 16:20 | HO.HEMONCSCH ---
CALLED PT DUE TO N/S . LEFT VOICEMAIL . N/S WILL BE MAILED WELL
--- NOTE | 2021-12-31 12:29 | PM.HEMONCPN ---
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 Medical Summary: Diagnosis: Adenocarcinoma of the esophagus, of the lower end. Current Therapy: 1. Combined modality therapy with radiation along with weekly carboplatin and Taxol, had 4 weeks, Completed 08/21/2017. 2. Had disease recurrence, seen at the EG junction on endoscopy on October 27, 2020. Completed re- radiation, 07/04/20. Interval History Interval history: This is a pleasant 61 year-old gentleman, here for a follow-up visit. He tells me he has not been doing too well. Over the weekend he fell. They had a yd sale at their home. He just tripped. Since then he has pain in his right knee. He has some abrasions there. He has a hard time walking. His energy level has been low lately, however he has been very busy. No headache, he gets occasional dizziness. Denies chest pain or trouble breathing. No cough no sputum. Denies dysphagia nor odynophagia. He is eating everything. He denies abdominal pain nausea vomiting heartburn indigestion. Bowels are working without any gross blood in it. There is no black/dark stool. He enjoys a good appetite. He has gained weight. Previous history: He had an upper endoscopy on 02/12/[address] Suggs. Did not reveal any residual cancer. He is on a new medication for diabetes. It does appear to be helping. Blood sugars are in the range of 118-120. He is in good spirits. Rest of the review of systems is unremarkable. He tells me he has some blood vessels growth in his eyes. He is under the care of [facility] in [place]. They are monitoring it for now. He denies any major visual complaints. Interim history: He was noted to be rather anemic. He required blood transfusion. He underwent an upper endoscopy and colonoscopy on 09/[address] Suggs. Results: UPPER ENDOSCOPY: Esophagus: The esophagus showed changes consistent with radiation therapy over the lower 1/3 with small areas of petechiae measuring 1-2 mm. There was no evidence of recurrent adenocarcinoma at the EG junction. No biopsies were obtained due to the patient's history of esophageal varices and thrombocytopenia. No varices were seen. Stomach: The stomach showed no evidence of masses or ulcers. There were 2 polyps present at the antrum near the pyloric channel. These had been seen on prior examinations and they were re-biopsied. The largest measured approximately 15 mm x 20 mm. Duodenum: The bulb and second portion were normal. COLONOSCOPY: The terminal ileum was normal. The prep was excellent. There was an 8 mm nonbleeding AVM on the ileocecal valve. No other AVMs were identified. No polyps were seen. Retroflexed examination showed moderate-sized internal hemorrhoids. IMPRESSION: 1. Radiation changes to the lower esophagus. 2. Gastric polyps. 3. Colonic arteriovenous malformation. RECOMMENDATION: 1. Follow up the biopsy results. 2. Repeat colonoscopy is recommended in 10 years for average risk individuals. 3. Continue present therapy. Previous history: He completed re irradiation in May. He tolerated it well for the most part. He did not develop any swallowing difficulty however he did end up with a cold and a cough which lasted about 5 weeks. It has resolved now. He had a stroke several months ago. He went through a course physical therapy. He still has residual right upper extremity weakness. He is trying to stay active. He does yard work at home. He denies any dysphagia or odynophagia. Review of Systems - Constitutional Reports system reviewed and no additional complaints, except as documented - Eyes Reports system reviewed and no additional complaints, except as documented - ENT Reports system reviewed and no additional complaints, except as documented - Cardiovascular Reports system reviewed and no additional complaints, except as documented - Respiratory Reports no additional respiratory complaints - Gastrointestinal Reports system reviewed and no additional complaints, except as documented - Genitourinary Genitourinary: Reports no additional male genitourinary complaints - Musculoskeletal Reports system reviewed and no additional complaints, except as documented - Integumentary/Breasts Skin/Breast: Reports no additional skin complaints - Neurologic Reports system reviewed and no additional complaints, except as documented, Reports abnormal gait, Reports focal weakness, Denies weakness - Psychiatric Reports system reviewed and no additional complaints, except as documented - Endocrine Reports no additional endocrine complaints - Hematologic/Lymphatic Reports system reviewed and no additional complaints, except as documented - Allergic/Immunologic Reports system reviewed and no additional complaints, except as documented [facility] Medical History: Medical History (Last Reviewed 12/31/21 @ 12:31 by Deborah Bah CMA) Adenocarcinoma of lower esophagus Alcoholic cirrhosis Anemia Constipation Diabetes Elevated ferritin Esophageal varices Esophagus, carcinoma Hepatic cirrhosis Hepatitis C Hx of splenomegaly Hyperlipidemia LDL goal <70 Male circumcision Seizure disorder Stroke Thrombocytopenia Type 2 diabetes mellitus with diabetic polyneuropathy Type 2 diabetes mellitus with hyperglycemia Functional capacity: independent ambulation Patient : No Family History: Family History (Last Reviewed 12/31/21 @ 12:32 by Deborah Bah CMA) Father No problems noted. Mother Diabetes mellitus Surgical History: Surgical History (Last Reviewed 12/31/21 @ 12:32 by Deborah Bah CMA) Hx of circumcision Hx of colonoscopy Hx of endoscopy Social History: Social History (Last Reviewed 12/31/21 @ 12:32 by Deborah Bah CMA) Living Situation History: Household Members: Spouse Household Members Other:: Spouse: Antoni Housing: House Are you a primary anesthesiologist and critical care to a significant other at home: No Do you presently have visiting nurse or other home services: No Tobacco History: Patient Tobacco Use Status: Former Tobacco user Tobacco use type: Cigarette Years Smoked: 10 Smoke Quit Date: 40 years ago e-Cigarette/Vaping Use: Never Used Second Hand Smoke Exposure: No Occupation Assessmet: service: No Current occupational status: disabled Oncology Screenings - ECOG Performance Status ECOG Performance Status: 0 Home Medications and Allergies Home Medications Medication Instructions Recorded Confirmed Type cholecalciferol (vitamin D3) 25 25 mcg PO DAILY 04/06/20 12/31/21 History mcg (1,000 unit) tablet (Vitamin D3) lancets 33 gauge #100 ea 08/15/20 12/31/21 History pen needle, diabetic 31 gauge x #1,200 ea 08/15/20 12/31/21 History 5/16 Allergies Allergy/AdvReac Type Severity Reaction Status Date / Time No Known Allergies Allergy Verified 12/31/21 12:32 Exam Vital signs: Vital Signs Temp 97.4 F 10/25/21 14:01 Pulse 76 10/25/21 14:01 Resp 14 10/25/21 14:01 BP 108/62 10/25/21 14:01 Pulse Ox 99 10/25/21 14:01 O2 Del Method 10/25/21 14:01 Weight 88.9 kg BMI result Body Mass Index 30.7 - Constitutional Present: no acute distress - Routine HEENT Exam Head: Present: normal inspection Eye: Present: normal appearance ENT: Present: mucous membranes moist - Routine Neck Exam Present: full ROM - Routine Respiratory Exam Present: CTAB - Routine Cardiovascular Exam Cardiovascular: Present: RRR, S1, S2 - Routine Abdominal Exam Present: soft, nontender - Routine Extremities Exam Present: joint swelling, nontender Comments: Right knee pain and swelling tenderness. Abrasions. Limited motion. - Routine Back/Spine/Pelvis Exam Back/Spine: Present: full ROM - Routine Skin Exam Present: intact - Routine Neurological Exam Present: alert, oriented X3 - Detailed Neurological Exam: Coma Scale Eye Opening: Spontaneous (4) - Routine Psychiatric Exam Present: normal affect Data - Labs CBC & Chem 7: 12/31/21 13:10 12/31/21 13:10 Assessment and Plan Patient Active problem list reviewed?: Yes (1) Adenocarcinoma of lower esophagus Status: Acute Assessment and plan: This is a pleasant, 59 year-old gentleman with history of Hepatitis C, Esophageal Adenocarcinoma. He completed combined modality therapy with radiation plus chemotherapy, in August of 2017. CT chest with contrast performed 10/22/17 showed wall thickening of the distal thoracic esophagus, enlarged paraesophageal varices, no enlarged hilar or mediastinal lymph nodes, enlarged spleen and mild upper abdominal lymphadenopathy, largest lymph node in the periportal region measuring 1.5x1.3 cm. Also a nonspecific 1 cm lucent lesion in the superior endplate of T7 would whole-body, ? metastasis. Several nonspecific lytic lesions in the thoracic and visualized upper lumbar vertebral bodies questionable for possible metastatic disease. He denies any dysphagia or odynophagia. Routine endoscopy reveals disease recurrence, with a 2 cm mass just below the EG junction. Pathology confirms: Moderately differentiated Adenocarcinoma. A PET scan, was denied. CT scan of the chest from November 24 revealed: 1. No pulmonary nodule, mass or groundglass opacity is seen. 2. There is no thoracic lymphadenopathy. 3. There is are cirrhotic changes of the liver redemonstrated, without focal mass seen. 4. There is interim placement of a portocaval shunt. The splenic and mesenteric veins appear patent. Upper abdominal varices are less pronounced than seen. 5. There is stable wall thickening of the gastroesophageal junction. 6. No abdominopelvic metastasis, free fluid or lymphadenopathy is seen. Unfortunately, he is really not a surgical candidate. He has already had radiation therapy so that is not an option. He underwent an endoscopic ultrasound to evaluate for the thickness of the tumor, and possible adenopathy. This was done on January [address] Elizabet Gilliam. Findings: Endoscopy revealed a 1.5-2 cm GE junction mass, that appeared to be semi pedunculated. Evidence of mild portal hypertensive gastropathy in the stomach. Two small polyps noted in the stomach 1 in the gastric body and other just proximal to the pyloric sphincter. Polyps appeared reactive. Endoscopic ultrasound: Tumor was hypoechoic 1.8 x 1.4 cm, likely T1b, and 0. The MP was intact. Small varices noted in the submucosa. No aortic nor vertebral invasion. Normal celiac takeoff. No obvious lesion in the liver. Normal appearing pancreatic duct. The plan initially was to proceed with photodynamic therapy. That will help to avoid systemic chemotherapy. He has seen Dr. Lucio Mo, at [facility]. His note mentions: Endosonographically, stage T1b. This is a difficult situation. Locally recurrent GE junction adenocarcinoma already subjected to 50 Gy of radiation. He has no regional nor distant metastatic disease. Ideally surgical resection should be done but his comorbidities that too significant to allow for a safe surgery. Endoscopic submucous ectomy still relatively early in the evolution of the technique and since this lesions pans 2.5 cm in longitudinal dimension that may be too much for endoscopic resection. We have to consider other local ablative modalities to take care of this recurrence. He was given a couple of options: 1. Photodynamic therapy. 2. Brachytherapy. He would favor brachy therapy, since his visceral disease is worrisome, in regards to the bleeding from his variceal disease. That would be more of a risk with photodynamic therapy. (he is not in favor of having to hide from light for 4-6 weeks if he undergoes photodynamic therapy.) Overall the safety profile of brachytherapy would be higher than photodynamic therapy. It also has a better track record. I called the Radiation Oncology Department at [facility] to expedite his appointment for brachy therapy there. D/W Radiation therapist at [facility]. They are recommending re-irradiation. I had discussed with Dr. Sarmiento at [facility], to set it up here, for his convenience. His appointment was on April 12. She did discussed the option of endoscopic resection with the surgeon however they were not keen on it on account of his history of varices. He had a PET scan done, on 05/11/2020 at [facility] which revealed: Focal area of distal esophageal wall thickening with mildly increased activity, SUV max of 5.5. No findings suggestive of distal metastatic disease. He was then referred to Dr. Sarmiento. He completed re-irradiation at [facility], few months ago. He had repeat upper endoscopy by Dr. Suggs, on 09/25. This revealed: Esophagus: The esophagus showed changes consistent with his prior radiation therapy. There was a nodular area just below the EG junction with some inflammatory change. This was biopsied. There were no visible esophageal varices or gastric varices. Stomach: The stomach showed no evidence of masses or ulcers. The previously identified gastric polyps were present. They appeared unchanged from his prior examination. Biopsies were obtained from the gastric polyps. Duodenum: The bulb and second portion were normal. 1. Adenocarcinoma of the EG junction, status post biopsy. 2. Gastric polyps. Unfortunately, the biopsy results revealed: Ulcerated cardiac type mucosa with high-grade dysplasia/in Situ adenocarcinoma. No squamous epithelium seen. This could be residual after radiation and may disappear with the tincture of time. However there is no invasive component, for which any medical treatment could be recommended. He had a left CVA with right-sided weakness. He had PT done. He still has residual right upper extremity weakness but otherwise doing well. Denies any GI complaints. Ultrasound of the abdomen from 02/14/21 revealed: Fatty infiltration of the liver. Patent TIPS. Splenomegaly. He had an upper endoscopy on the 02/12/[address] Suggs which revealed: No evidence of recurrent adenocarcinoma at the EG junction. He has pancytopenia likely related to his liver disease and cirrhosis. His blood count had dropped significantly, at his last visit even though he was not very symptomatic. At his visit on 08/15, his hemoglobin went down to 7.2. Iron studies: 20/458/4/6. B12 452. Folate 11.2. Concern was for disease recurrence versus another source of GI blood loss. He was given 2 units of packed RBCs. He underwent an upper endoscopy on 09/[address] Suggs. This revealed a findings consistent with radiation esophagitis/gastritis. Pathology revealed: Polypoid foveolar hyperplasia with chronic active gastritis, negative for H pylori, intestinal metaplasia and dysplasia. The colonoscopy was negative. He was advised to take the proton pump inhibitor twice a day and at Carafate however he did not take the Carafate. He has been taking oral iron. Hemoglobin from September 13 was 9.6. Today's hemoglobin is 15.8. It was 14.4, in October. This is reassuring. On Thursday he fell down and injured his right knee. PLAN: Will proceed with an x-ray of the knee. He will follow-up with his primary soon. The plan is to continue to monitor him. Will check his labs monthly. He will return in 3 months for a follow-up visit. Thank you, CC: Dr. Gray. Dr. Nikki Acevedo. Dr. Suggs. Dr. Mo. - Time Spent With Patient Time Spent with Patient (in minutes): 26
[2021-12-31 12:30] VITALS: BP 112/67; PULSE 72; RESP 14; TEMP 35.9; O2SAT 97; BMI 31.4
[2021-12-31 13:25] LABS: MANUAL DIFF FLAG NO
[2021-12-31 13:31] LABS: Basophils Percent Auto 0.8 % (0-2); Eosinophils Absolute Auto 0.2 X10*3/uL (0.0-0.4); Eosinophils Percent Auto 4.6 % (0-4); Hematocrit 44.6 % (42.0-52.0); Hemoglobin 15.7 g/dl (14.0-18.0); Imm Gran Abs Auto 0.02 X10*3/uL (0.00-0.03); Imm Gran Pct Auto 0.4 % (0.0-0.4); Lymphocytes Absolute Auto 1.1 X10*3/uL (1.2-4.9); Lymphocytes Percent Auto 22.8 % (20-40); Mean Corpuscular HGB Conc 35.2 g/dl (31.0-36.0); Mean Corpuscular Hemoglobin 30.6 pg (27.0-33.0); Mean Corpuscular Volume 86.9 fL (80.0-98.0); Mean Platelet Volume 9.2 fL (9.4-12.4); Monocytes Absolute Auto 0.4 X10*3/uL (0.1-1.2); Monocytes Percent Auto 7.9 % (2-11); Neutrophils Absolute Auto 3.1 x10*3/uL (2.0-8.3); Neutrophils Percent Auto 63.5 % (45-73); Red Blood Count 5.13 X10*6/uL (4.60-5.80); Red Cell Distribution Width 19.4 % (11.0-16.0)
[2021-12-31 13:32] LABS: Platelet Count 77 X10*3/uL (160-400)
[2021-12-31 14:00] LABS: Alanine Aminotransferase 19 U/L (0-40); Albumin Level 3.3 g/dL (3.5-5.0); Alkaline Phosphatase 102 U/L (39-117); Anion Gap 10 (12-20); Aspartate Amino Transferase 31 U/L (5-37); Bilirubin Total 1.6 mg/dL (0.0-1.0); Blood Urea Nitrogen 13 mg/dL (9-16); Calcium 8.8 mg/dL (8.4-10.2); Carbon Dioxide 23 mmol/L (22-29); Chloride 113 mmol/L (96-108); Creatinine Clr Calc Pharmacy 108.4; Estimated Glomerular Filt Rate > 60; Glucose Random 180 mg/dL (60-115); Potassium 4.1 mmol/L (3.3-5.1); Sodium 142 mmol/L (135-145); Total Protein 6.5 g/dL (6.5-8.0)
--- NOTE | 2021-12-31 16:21 | MHC.HEMONCMA ---
Pt was in for follow up. Clinical summary reviewed and updated, VSS. Labs were drawn. Pt to return in 1 month.
--- NOTE | 2022-01-01 09:21 | HE.ONCSEC ---
JOSÉ LUIS CAME IN TODAY TO MAKE ANOTHER APPT W/ . I RESCHEDULED PATIENT FOR 01/17/22
[2022-01-17 13:15] VITALS: BP 141/94; PULSE 70; RESP 14; TEMP 36.4; O2SAT 98; BMI 31.5
--- NOTE | 2022-01-17 13:17 | PM.HEMONCPN ---
Medical Summary - Medical Summary Date of Service: 01/17/22 Chief complaint: Follow-up for colon carcinoma esophagus. Medical Summary: Diagnosis: Adenocarcinoma of the esophagus, of the lower end. Current Therapy: 1. Combined modality therapy with radiation along with weekly carboplatin and Taxol, had 4 weeks, Completed 08/21/2017. 2. Had disease recurrence, seen at the EG junction on endoscopy on October 27, 2020. Completed re- radiation, 07/04/20. Interval History Interval history: This is a pleasant 61 year-old gentleman, here for a follow-up visit. He tells me he has been doing well. He had fallen over the weekend he fell. They had a yd sale at their home. He just tripped. Since then he had pain in his right knee. He has some abrasions there. He has a hard time walking. l proceeded with an x-ray of the knee on 01/03: Mild osteopenia. No visible acute fracture, dislocation or subluxation seen. He tells me his knee is much better now. He cannot kneel down but he is able to bend it. His energy level has been good lately, he has been very busy. No headache, he gets occasional dizziness. Denies chest pain or trouble breathing. No cough no sputum. Denies dysphagia nor odynophagia. He is eating everything. He denies abdominal pain nausea vomiting heartburn indigestion. Bowels are working without any gross blood in it. There is no black/dark stool. He enjoys a good appetite. He has gained weight. Previous history: He had an upper endoscopy on 02/12/[address] Suggs. Did not reveal any residual cancer. He is on a new medication for diabetes. It does appear to be helping. Blood sugars are in the range of 118-120. He is in good spirits. Rest of the review of systems is unremarkable. He tells me he has some blood vessels growth in his eyes. He is under the care of [facility] in [place]. They are monitoring it for now. He denies any major visual complaints. Interim history: He was noted to be rather anemic. He required blood transfusion. He underwent an upper endoscopy and colonoscopy on 09/[address] Suggs. Results: UPPER ENDOSCOPY: Esophagus: The esophagus showed changes consistent with radiation therapy over the lower 1/3 with small areas of petechiae measuring 1-2 mm. There was no evidence of recurrent adenocarcinoma at the EG junction. No biopsies were obtained due to the patient's history of esophageal varices and thrombocytopenia. No varices were seen. Stomach: The stomach showed no evidence of masses or ulcers. There were 2 polyps present at the antrum near the pyloric channel. These had been seen on prior examinations and they were re-biopsied. The largest measured approximately 15 mm x 20 mm. Duodenum: The bulb and second portion were normal. COLONOSCOPY: The terminal ileum was normal. The prep was excellent. There was an 8 mm nonbleeding AVM on the ileocecal valve. No other AVMs were identified. No polyps were seen. Retroflexed examination showed moderate-sized internal hemorrhoids. IMPRESSION: 1. Radiation changes to the lower esophagus. 2. Gastric polyps. 3. Colonic arteriovenous malformation. RECOMMENDATION: 1. Follow up the biopsy results. 2. Repeat colonoscopy is recommended in 10 years for average risk individuals. 3. Continue present therapy. Previous history: He completed re irradiation in May. He tolerated it well for the most part. He did not develop any swallowing difficulty however he did end up with a cold and a cough which lasted about 5 weeks. It has resolved now. He had a stroke several months ago. He went through a course physical therapy. He still has residual right upper extremity weakness. He is trying to stay active. He does yard work at home. He denies any dysphagia or odynophagia. Review of Systems - Constitutional Reports no additional constitutional complaints, Denies fatigue, Denies frequent falls, Denies malaise, Denies poor appetite, Reports weight gain, Denies weight loss - Eyes Reports no additional eye complaints - ENT Reports no additional ear, nose, mouth, and throat complaints - Cardiovascular Reports no additional cardiovascular complaints - Respiratory Reports no additional respiratory complaints - Gastrointestinal Reports no additional gastrointestinal complaints - Genitourinary Genitourinary: Reports no additional male genitourinary complaints - Musculoskeletal Reports no additional musculoskeletal complaints, Reports joint pain - Integumentary/Breasts Skin/Breast: Reports no additional skin complaints - Neurologic Reports no additional neurologic complaints, Reports abnormal gait, Reports focal weakness, Denies weakness - Psychiatric Reports no additional psychiatric complaints - Endocrine Reports no additional endocrine complaints - Hematologic/Lymphatic Reports no additional hematologic/lymphatic complaints - Allergic/Immunologic Reports no additional allergic/immunologic complaints [facility] Medical History: Medical History (Last Reviewed 01/17/22 @ 13:18 by Christina Cole) Adenocarcinoma of lower esophagus Alcoholic cirrhosis Anemia Constipation Diabetes Elevated ferritin Esophageal varices Esophagus, carcinoma Hepatic cirrhosis Hepatitis C Hx of splenomegaly Hyperlipidemia LDL goal <70 Male circumcision Seizure disorder Stroke Thrombocytopenia Type 2 diabetes mellitus with diabetic polyneuropathy Type 2 diabetes mellitus with hyperglycemia Functional capacity: independent ambulation Patient : No Family History: Family History (Last Reviewed 01/17/22 @ 13:18 by Christina Cole) Father No problems noted. Mother Diabetes mellitus Surgical History: Surgical History (Last Reviewed 01/17/22 @ 13:18 by Christina Cole) Hx of circumcision Hx of colonoscopy Hx of endoscopy Social History: Social History (Last Reviewed 01/17/22 @ 13:19 by Christina Cole) Living Situation History: Household Members: Spouse Household Members Other:: Spouse: Antoni Housing: House Are you a primary child care leader to a significant other at home: No Do you presently have visiting nurse or other home services: No Alcohol History Details: 1. How often do you have a drink containing alcohol?: a. Never Tobacco History: Patient Tobacco Use Status: Former Tobacco user Tobacco use type: Cigarette Years Smoked: 10 Smoked in Last 30 Days: No Smoke Quit Date: 40 years ago e-Cigarette/Vaping Use: Never Used Second Hand Smoke Exposure: No Substance Use History: Use of substances other than those prescribed or required for medical reasons: No Domestic Abuse History: Have you been hit, kicked, punched, or otherwise hurt by someone within the past year? If so, by whom?: No Do you feel safe in your current relationship?: Yes Advance Directives: Advance Directives: No Advance Directives Information Provided: No Homicidal Assessment: Do you have thoughts of harming others: None Do you have a plan to hurt others: No Plan Do you have the means to hurt others: No Nutrition Assessment: Recently lost weight without trying: No Patient : No Occupation Assessmet: service: No Current occupational status: disabled Oncology Screenings - ECOG Performance Status ECOG Performance Status: 0 Home Medications and Allergies Home Medications Medication Instructions Recorded Confirmed Type cholecalciferol (vitamin D3) 25 25 mcg PO DAILY 04/06/20 01/17/22 History mcg (1,000 unit) tablet (Vitamin D3) lancets 33 gauge #100 ea 08/15/20 01/17/22 History pen needle, diabetic 31 gauge x #1,200 ea 08/15/20 01/17/22 History 5/16 levetiracetam 500 mg tablet 500 mg PO TID 01/17/22 01/17/22 History (Keppra) Allergies Allergy/AdvReac Type Severity Reaction Status Date / Time No Known Allergies Allergy Verified 12/31/21 12:32 Exam Vital signs: Vital Signs Temp 96.7 F L 12/31/21 12:30 Pulse 72 12/31/21 12:30 Resp 14 12/31/21 12:30 BP 112/67 12/31/21 12:30 Pulse Ox 97 12/31/21 12:30 O2 Del Method 12/31/21 12:30 Weight 91.2 kg BMI result Body Mass Index 31.4 - Constitutional Present: no acute distress - Routine HEENT Exam Head: Present: normal inspection Eye: Present: normal appearance ENT: Present: mucous membranes moist - Routine Neck Exam Present: full ROM - Routine Respiratory Exam Present: CTAB - Routine Cardiovascular Exam Cardiovascular: Present: RRR, S1, S2 - Routine Abdominal Exam Present: soft, nontender - Routine Extremities Exam Present: joint swelling, nontender - Routine Back/Spine/Pelvis Exam Back/Spine: Present: full ROM - Routine Skin Exam Present: intact - Routine Neurological Exam Present: alert, oriented X3 - Detailed Neurological Exam: Coma Scale Eye Opening: Spontaneous (4) - Routine Psychiatric Exam Present: normal affect Data - Labs CBC & Chem 7: 12/31/21 13:10 12/31/21 13:10 - Imaging Radiologist's impression: ITS Impressions Knee X-Ray 12/31/21 13:49 IMPRESSION: Mild osteopenia. No visible acute fracture, dislocation or subluxation seen. Assessment and Plan Patient Active problem list reviewed?: Yes (1) Adenocarcinoma of lower esophagus Status: Acute Assessment and plan: This is a pleasant, 59 year-old gentleman with history of Hepatitis C, Esophageal Adenocarcinoma. He completed combined modality therapy with radiation plus chemotherapy, in August of 2017. CT chest with contrast performed 10/22/17 showed wall thickening of the distal thoracic esophagus, enlarged paraesophageal varices, no enlarged hilar or mediastinal lymph nodes, enlarged spleen and mild upper abdominal lymphadenopathy, largest lymph node in the periportal region measuring 1.5x1.3 cm. Also a nonspecific 1 cm lucent lesion in the superior endplate of T7 would whole-body, ? metastasis. Several nonspecific lytic lesions in the thoracic and visualized upper lumbar vertebral bodies questionable for possible metastatic disease. He denies any dysphagia or odynophagia. Routine endoscopy reveals disease recurrence, with a 2 cm mass just below the EG junction. Pathology confirms: Moderately differentiated Adenocarcinoma. A PET scan, was denied. CT scan of the chest from November 24 revealed: 1. No pulmonary nodule, mass or groundglass opacity is seen. 2. There is no thoracic lymphadenopathy. 3. There is are cirrhotic changes of the liver redemonstrated, without focal mass seen. 4. There is interim placement of a portocaval shunt. The splenic and mesenteric veins appear patent. Upper abdominal varices are less pronounced than seen. 5. There is stable wall thickening of the gastroesophageal junction. 6. No abdominopelvic metastasis, free fluid or lymphadenopathy is seen. Unfortunately, he is really not a surgical candidate. He has already had radiation therapy so that is not an option. He underwent an endoscopic ultrasound to evaluate for the thickness of the tumor, and possible adenopathy. This was done on January [address] Elizabet Gilliam. Findings: Endoscopy revealed a 1.5-2 cm GE junction mass, that appeared to be semi pedunculated. Evidence of mild portal hypertensive gastropathy in the stomach. Two small polyps noted in the stomach 1 in the gastric body and other just proximal to the pyloric sphincter. Polyps appeared reactive. Endoscopic ultrasound: Tumor was hypoechoic 1.8 x 1.4 cm, likely T1b, and 0. The MP was intact. Small varices noted in the submucosa. No aortic nor vertebral invasion. Normal celiac takeoff. No obvious lesion in the liver. Normal appearing pancreatic duct. The plan initially was to proceed with photodynamic therapy. That will help to avoid systemic chemotherapy. He has seen Dr. Lucio Mo, at [facility]. His note mentions: Endosonographically, stage T1b. This is a difficult situation. Locally recurrent GE junction adenocarcinoma already subjected to 50 Gy of radiation. He has no regional nor distant metastatic disease. Ideally surgical resection should be done but his comorbidities that too significant to allow for a safe surgery. Endoscopic submucous ectomy still relatively early in the evolution of the technique and since this lesions pans 2.5 cm in longitudinal dimension that may be too much for endoscopic resection. We have to consider other local ablative modalities to take care of this recurrence. He was given a couple of options: 1. Photodynamic therapy. 2. Brachytherapy. He would favor brachy therapy, since his visceral disease is worrisome, in regards to the bleeding from his variceal disease. That would be more of a risk with photodynamic therapy. (he is not in favor of having to hide from light for 4-6 weeks if he undergoes photodynamic therapy.) Overall the safety profile of brachytherapy would be higher than photodynamic therapy. It also has a better track record. I called the Radiation Oncology Department at [facility] to expedite his appointment for brachy therapy there. D/W Radiation therapist at [facility]. They are recommending re-irradiation. I had discussed with Dr. Sarmiento at [facility], to set it up here, for his convenience. His appointment was on April 12. She did discussed the option of endoscopic resection with the surgeon however they were not keen on it on account of his history of varices. He had a PET scan done, on 05/11/2020 at [facility] which revealed: Focal area of distal esophageal wall thickening with mildly increased activity, SUV max of 5.5. No findings suggestive of distal metastatic disease. He was then referred to Dr. Sarmiento. He completed re-irradiation at [facility], few months ago. He had repeat upper endoscopy by Dr. Suggs, on 09/25. This revealed: Esophagus: The esophagus showed changes consistent with his prior radiation therapy. There was a nodular area just below the EG junction with some inflammatory change. This was biopsied. There were no visible esophageal varices or gastric varices. Stomach: The stomach showed no evidence of masses or ulcers. The previously identified gastric polyps were present. They appeared unchanged from his prior examination. Biopsies were obtained from the gastric polyps. Duodenum: The bulb and second portion were normal. 1. Adenocarcinoma of the EG junction, status post biopsy. 2. Gastric polyps. Unfortunately, the biopsy results revealed: Ulcerated cardiac type mucosa with high-grade dysplasia/in Situ adenocarcinoma. No squamous epithelium seen. This could be residual after radiation and may disappear with the tincture of time. However there is no invasive component, for which any medical treatment could be recommended. He had a left CVA with right-sided weakness. He had PT done. He still has residual right upper extremity weakness but otherwise doing well. Denies any GI complaints. Ultrasound of the abdomen from 02/14/21 revealed: Fatty infiltration of the liver. Patent TIPS. Splenomegaly. He had an upper endoscopy on the 02/12/[address] Suggs which revealed: No evidence of recurrent adenocarcinoma at the EG junction. He has pancytopenia likely related to his liver disease and cirrhosis. His blood count had dropped significantly, at his last visit even though he was not very symptomatic. At his visit on 08/15, his hemoglobin went down to 7.2. Iron studies: 20/458/4/6. B12 452. Folate 11.2. Concern was for disease recurrence versus another source of GI blood loss. He was given 2 units of packed RBCs. He underwent an upper endoscopy on 09/[address] Suggs. This revealed a findings consistent with radiation esophagitis/gastritis. Pathology revealed: Polypoid foveolar hyperplasia with chronic active gastritis, negative for H pylori, intestinal metaplasia and dysplasia. The colonoscopy was negative. He was advised to take the proton pump inhibitor twice a day and at Carafate however he did not take the Carafate. He has been taking oral iron. Hemoglobin from September 13 was 9.6. 01/03, his hemoglobin is 15.7. It was 14.4, in October. This is reassuring. On 12/27, he fell down and injured his right knee. l proceeded with an x-ray of the knee. This did not reveal any fracture. His knee is feeling better. Overall he is stable. PLAN: The plan is to continue to monitor him. Will check his labs monthly. He will return in 3 months for a follow-up visit. He will follow-up with his primary soon. Thank you, CC: Dr. Gray. Dr. Nikki Acevedo. Dr. Suggs. Dr. Mo. - Time Spent With Patient Time Spent with Patient (in minutes): 25
--- NOTE | 2022-01-17 15:18 | MHC.HEMONCMA ---
Pt was in for follow up. Clinical summary reviewed and updated, VSS. Pt to return in 3 months.
--- NOTE | 2022-04-18 15:02 | PM.HEMONCPN ---
Medical Summary - Medical Summary Date of Service: 04/18/22 Chief complaint: Follow up for:Adeonocarcinoma of Esophagus.. Medical Summary: Diagnosis: Adenocarcinoma of the esophagus, of the lower end. Current Therapy: 1. Combined modality therapy with radiation along with weekly carboplatin and Taxol, had 4 weeks, Completed 08/21/2017. 2. Had disease recurrence, seen at the EG junction on endoscopy on October 27, 2020. Completed re- radiation, 07/04/20. Interval History Interval history: This is a pleasant 61 year-old gentleman, here for a follow-up visit. He tells me he had been doing well. However on 04/14 he was seen in the ER: 61-year-old male with history of type 2 diabetes, HTN, seizures, adenocarcinoma of the esophagus who presents to the ER for evaluation of a left thumb injury, through and through injury with a drill bit. X-ray reviewed and does not appear to have bony involvement. He has normal function of all tendons. No sensory deficit. No active bleeding. The wound was soaked in Betadine, saline, Hydrogen peroxide combination for antiseptic affect. Will prescribe prophylactic antibiotics to prevent infection. Tdap given. Patient counseled on wound care and return precautions. He is stable for discharge home. His energy level has been good, he has been very busy at work. No headache, he gets occasional dizziness. Denies chest pain or trouble breathing. No cough no sputum. Denies dysphagia nor odynophagia. He is eating everything. He denies abdominal pain nausea vomiting heartburn indigestion. Bowels are working without any gross blood in it. There is no black/dark stool. He enjoys a good appetite. He has gained weight. He was seen by Dr. Suggs on 04/02: Upper endoscopy in August showed no evidence of recurrence of his esophageal adenocarcinoma. Gastric polyp biopsy showed polypoid foamy hyperplasia chronic active gastritis and no H pylori. He continues on the Protonix 40 mg. With respect to his liver disease ultrasound earlier this year showed patent tips shunt without focal liver lesion. No varices were noted on endoscopy in August. Radiation changes were seen. Colonoscopy showed a nonbleeding 8 mm avium on the ileocecal valve and hemorrhoids. His anemia has resolved with iron supplementation. No endoscopy was recommended at that time. Previous history: He had fallen over the weekend he fell. They had a yd sale at their home. He just tripped. Since then he had pain in his right knee. He has some abrasions there. He has a hard time walking. l proceeded with an x-ray of the knee on 01/03: Mild osteopenia. No visible acute fracture, dislocation or subluxation seen. He tells me his knee is much better now. He cannot kneel down but he is able to bend it. He had an upper endoscopy on 02/12/[address] Suggs. Did not reveal any residual cancer. He is on a new medication for diabetes. It does appear to be helping. Blood sugars are in the range of 118-120. He is in good spirits. Rest of the review of systems is unremarkable. He tells me he has some blood vessels growth in his eyes. He is under the care of [facility] in [place]. They are monitoring it for now. He denies any major visual complaints. Interim history: He was noted to be rather anemic. He required blood transfusion. He underwent an upper endoscopy and colonoscopy on 09/[address] Suggs. Results: UPPER ENDOSCOPY: Esophagus: The esophagus showed changes consistent with radiation therapy over the lower 1/3 with small areas of petechiae measuring 1-2 mm. There was no evidence of recurrent adenocarcinoma at the EG junction. No biopsies were obtained due to the patient's history of esophageal varices and thrombocytopenia. No varices were seen. Stomach: The stomach showed no evidence of masses or ulcers. There were 2 polyps present at the antrum near the pyloric channel. These had been seen on prior examinations and they were re-biopsied. The largest measured approximately 15 mm x 20 mm. Duodenum: The bulb and second portion were normal. COLONOSCOPY: The terminal ileum was normal. The prep was excellent. There was an 8 mm nonbleeding AVM on the ileocecal valve. No other AVMs were identified. No polyps were seen. Retroflexed examination showed moderate-sized internal hemorrhoids. IMPRESSION: 1. Radiation changes to the lower esophagus. 2. Gastric polyps. 3. Colonic arteriovenous malformation. RECOMMENDATION: 1. Follow up the biopsy results. 2. Repeat colonoscopy is recommended in 10 years for average risk individuals. 3. Continue present therapy. Previous history: He completed re irradiation in May. He tolerated it well for the most part. He did not develop any swallowing difficulty however he did end up with a cold and a cough which lasted about 5 weeks. It has resolved now. He had a stroke several months ago. He went through a course physical therapy. He still has residual right upper extremity weakness. He is trying to stay active. He does yard work at home. He denies any dysphagia or odynophagia. Review of Systems - Constitutional Reports no additional constitutional complaints - Eyes Reports no additional eye complaints - ENT Reports no additional ear, nose, mouth, and throat complaints - Cardiovascular Reports no additional cardiovascular complaints - Respiratory Reports no additional respiratory complaints - Gastrointestinal Reports no additional gastrointestinal complaints - Genitourinary Genitourinary: Reports no additional male genitourinary complaints - Musculoskeletal Reports no additional musculoskeletal complaints - Integumentary/Breasts Skin/Breast: Reports no additional skin complaints - Neurologic Reports no additional neurologic complaints, Reports abnormal gait, Denies frequent falls, Reports focal weakness, Denies weakness - Psychiatric Reports no additional psychiatric complaints - Endocrine Reports no additional endocrine complaints - Hematologic/Lymphatic Reports no additional hematologic/lymphatic complaints - Allergic/Immunologic Reports no additional allergic/immunologic complaints [facility] Medical History: Medical History (Last Reviewed 04/18/22 @ 15:07 by Deborah Bah CMA) Adenocarcinoma of lower esophagus Alcoholic cirrhosis Anemia Constipation Diabetes Elevated ferritin Esophageal varices Esophagus, carcinoma Hepatic cirrhosis Hepatitis C Hx of splenomegaly Hyperlipidemia LDL goal <70 Male circumcision Seizure disorder Stroke Thrombocytopenia Type 2 diabetes mellitus with diabetic polyneuropathy Type 2 diabetes mellitus with hyperglycemia Functional capacity: independent ambulation Patient : No Family History: Family History (Last Reviewed 04/18/22 @ 15:07 by Deborah Bah CMA) Father No problems noted. Mother Diabetes mellitus Surgical History: Surgical History (Last Reviewed 04/18/22 @ 15:07 by Deborah Bah CMA) Hx of circumcision Hx of colonoscopy Hx of endoscopy Social History: Social History (Last Reviewed 04/18/22 @ 15:07 by Deborah Bah CMA) Living Situation History: Household Members: Spouse Household Members Other:: Spouse: Antoni Housing: House Are you a primary summer child caregiver to a significant other at home: No Do you presently have visiting nurse or other home services: No Alcohol History Details: 1. How often do you have a drink containing alcohol?: a. Never Tobacco History: Patient Tobacco Use Status: Former Tobacco user Tobacco use type: Cigarette Years Smoked: 10 Smoked in Last 30 Days: No Smoke Quit Date: 40 years ago e-Cigarette/Vaping Use: Never Used Second Hand Smoke Exposure: No Substance Use History: Use of substances other than those prescribed or required for medical reasons: No Domestic Abuse History: Have you been hit, kicked, punched, or otherwise hurt by someone within the past year? If so, by whom?: No Do you feel safe in your current relationship?: Yes Advance Directives: Advance Directives: No Advance Directives Information Provided: No Advance Directives Date on File: 01/28/21 Homicidal Assessment: Do you have thoughts of harming others: None Do you have a plan to hurt others: No Plan Do you have the means to hurt others: No Nutrition Assessment: Recently lost weight without trying: No Patient : No Occupation Assessmet: service: No Current occupational status: disabled Oncology Screenings - ECOG Performance Status ECOG Performance Status: 0 Home Medications and Allergies Home Medications Medication Instructions Recorded Confirmed Type cholecalciferol (vitamin D3) 25 25 mcg PO DAILY 04/06/20 04/18/22 History mcg (1,000 unit) tablet (Vitamin D3) lancets 33 gauge #100 ea 08/15/20 04/18/22 History pen needle, diabetic 31 gauge x #1,200 ea 08/15/20 04/18/22 History /16 levetiracetam 500 mg tablet 500 mg PO TID 01/17/22 04/18/22 History (Keppra) repaglinide 0.5 mg tablet 0.25 mg PO TID 02/13/22 04/18/22 History Allergies Allergy/AdvReac Type Severity Reaction Status Date / Time No Known Allergies Allergy Verified 04/18/22 15:08 Exam Vital signs: Vital Signs Temp 97.6 F 01/17/22 13:15 Pulse 70 01/17/22 13:15 Resp 14 01/17/22 13:15 BP 141/94 H 01/17/22 13:15 Pulse Ox 98 01/17/22 13:15 O2 Del Method 01/17/22 13:15 Weight 91.3 kg BMI result Body Mass Index 31.5 - Constitutional Present: no acute distress - Routine HEENT Exam Head: Present: normal inspection Eye: Present: normal appearance ENT: Present: mucous membranes moist - Routine Neck Exam Present: full ROM - Routine Respiratory Exam Present: CTAB - Routine Cardiovascular Exam Cardiovascular: Present: RRR, S1, S2 - Routine Abdominal Exam Present: soft, nontender - Routine Extremities Exam Present: joint swelling, nontender - Routine Back/Spine/Pelvis Exam Back/Spine: Present: full ROM - Routine Skin Exam Present: intact - Routine Neurological Exam Present: alert, oriented X3 - Detailed Neurological Exam: Coma Scale Eye Opening: Spontaneous (4) - Routine Psychiatric Exam Present: normal affect Data - Labs CBC & Chem 7: 04/18/22 14:53 04/18/22 14:53 - Imaging Radiologist's impression: ITS Impressions Knee X-Ray 12/31/21 13:49 IMPRESSION: Mild osteopenia. No visible acute fracture, dislocation or subluxation seen. Assessment and Plan Patient Active problem list reviewed?: Yes (1) Adenocarcinoma of lower esophagus Status: Acute Assessment and plan: This is a pleasant, 59 year-old gentleman with history of Hepatitis C, Esophageal Adenocarcinoma. He completed combined modality therapy with radiation plus chemotherapy, in August of 2017. CT chest with contrast performed 10/22/17 showed wall thickening of the distal thoracic esophagus, enlarged paraesophageal varices, no enlarged hilar or mediastinal lymph nodes, enlarged spleen and mild upper abdominal lymphadenopathy, largest lymph node in the periportal region measuring 1.5x1.3 cm. Also a nonspecific 1 cm lucent lesion in the superior endplate of T7 would whole-body, ? metastasis. Several nonspecific lytic lesions in the thoracic and visualized upper lumbar vertebral bodies questionable for possible metastatic disease. He denies any dysphagia or odynophagia. Routine endoscopy reveals disease recurrence, with a 2 cm mass just below the EG junction. Pathology confirms: Moderately differentiated Adenocarcinoma. A PET scan, was denied. CT scan of the chest from November 24 revealed: 1. No pulmonary nodule, mass or groundglass opacity is seen. 2. There is no thoracic lymphadenopathy. 3. There is are cirrhotic changes of the liver redemonstrated, without focal mass seen. 4. There is interim placement of a portocaval shunt. The splenic and mesenteric veins appear patent. Upper abdominal varices are less pronounced than seen. 5. There is stable wall thickening of the gastroesophageal junction. 6. No abdominopelvic metastasis, free fluid or lymphadenopathy is seen. Unfortunately, he is really not a surgical candidate. He has already had radiation therapy so that is not an option. He underwent an endoscopic ultrasound to evaluate for the thickness of the tumor, and possible adenopathy. This was done on January [address] Elizabet Gilliam. Findings: Endoscopy revealed a 1.5-2 cm GE junction mass, that appeared to be semi pedunculated. Evidence of mild portal hypertensive gastropathy in the stomach. Two small polyps noted in the stomach 1 in the gastric body and other just proximal to the pyloric sphincter. Polyps appeared reactive. Endoscopic ultrasound: Tumor was hypoechoic 1.8 x 1.4 cm, likely T1b, and 0. The MP was intact. Small varices noted in the submucosa. No aortic nor vertebral invasion. Normal celiac takeoff. No obvious lesion in the liver. Normal appearing pancreatic duct. The plan initially was to proceed with photodynamic therapy. That will help to avoid systemic chemotherapy. He has seen Dr. Lucio Mo, at [facility]. His note mentions: Endosonographically, stage T1b. This is a difficult situation. Locally recurrent GE junction adenocarcinoma already subjected to 50 Gy of radiation. He has no regional nor distant metastatic disease. Ideally surgical resection should be done but his comorbidities that too significant to allow for a safe surgery. Endoscopic submucous ectomy still relatively early in the evolution of the technique and since this lesions pans 2.5 cm in longitudinal dimension that may be too much for endoscopic resection. We have to consider other local ablative modalities to take care of this recurrence. He was given a couple of options: 1. Photodynamic therapy. 2. Brachytherapy. He would favor brachy therapy, since his visceral disease is worrisome, in regards to the bleeding from his variceal disease. That would be more of a risk with photodynamic therapy. (he is not in favor of having to hide from light for 4-6 weeks if he undergoes photodynamic therapy.) Overall the safety profile of brachytherapy would be higher than photodynamic therapy. It also has a better track record. I called the Radiation Oncology Department at [facility] to expedite his appointment for brachy therapy there. D/W Radiation therapist at [facility]. They are recommending re-irradiation. I had discussed with Dr. Sarmiento at [facility], to set it up here, for his convenience. His appointment was on April 12. She did discussed the option of endoscopic resection with the surgeon however they were not keen on it on account of his history of varices. He had a PET scan done, on 05/11/2020 at [facility] which revealed: Focal area of distal esophageal wall thickening with mildly increased activity, SUV max of 5.5. No findings suggestive of distal metastatic disease. He was then referred to Dr. Sarmiento. He completed re-irradiation at [facility], few months ago. He had repeat upper endoscopy by Dr. Suggs, on 09/25. This revealed: Esophagus: The esophagus showed changes consistent with his prior radiation therapy. There was a nodular area just below the EG junction with some inflammatory change. This was biopsied. There were no visible esophageal varices or gastric varices. Stomach: The stomach showed no evidence of masses or ulcers. The previously identified gastric polyps were present. They appeared unchanged from his prior examination. Biopsies were obtained from the gastric polyps. Duodenum: The bulb and second portion were normal. 1. Adenocarcinoma of the EG junction, status post biopsy. 2. Gastric polyps. Unfortunately, the biopsy results revealed: Ulcerated cardiac type mucosa with high-grade dysplasia/in Situ adenocarcinoma. No squamous epithelium seen. This could be residual after radiation and may disappear with the tincture of time. However there is no invasive component, for which any medical treatment could be recommended. He had a left CVA with right-sided weakness. He had PT done. He still has residual right upper extremity weakness but otherwise doing well. Denies any GI complaints. Ultrasound of the abdomen from 02/14/21 revealed: Fatty infiltration of the liver. Patent TIPS. Splenomegaly. He had an upper endoscopy on the 02/12/[address] Suggs which revealed: No evidence of recurrent adenocarcinoma at the EG junction. He has pancytopenia likely related to his liver disease and cirrhosis. His blood count had dropped significantly, at his last visit even though he was not very symptomatic. At his visit on 08/15, his hemoglobin went down to 7.2. Iron studies: 20/458/4/6. B12 452. Folate 11.2. Concern was for disease recurrence versus another source of GI blood loss. He was given 2 units of packed RBCs. He underwent an upper endoscopy on 09/[address] Suggs. This revealed a findings consistent with radiation esophagitis/gastritis. Pathology revealed: Polypoid foveolar hyperplasia with chronic active gastritis, negative for H pylori, intestinal metaplasia and dysplasia. The colonoscopy was negative. He was advised to take the proton pump inhibitor twice a day and at Carafate however he did not take the Carafate. He has been taking oral iron. Hemoglobin from September 13 was 9.6. 01/03, his hemoglobin is 15.7. It was 14.4, in October. This is reassuring. On 12/27, he fell down and injured his right knee. l proceeded with an x-ray of the knee. This did not reveal any fracture. His knee is all better. Overall he is doing well. His blood count is normal now. PLAN: The plan is to continue to monitor him. He was recently seen by Dr. Suggs, who gave him a clear bill of health. He will return in 4 months for a follow-up visit. He will follow-up with his primary as well. Thank you, CC: Dr. Gray. Dr. Nikki Acevedo. Dr. Suggs. Dr. Mo. - Time Spent With Patient Time Spent with Patient (in minutes): 25
[2022-04-18 15:03] VITALS: BP 124/76; PULSE 62; RESP 14; TEMP 36.4; O2SAT 97; BMI 33.0
[2022-04-18 15:07] LABS: Basophils Percent Auto 0.9 % (0-2); Imm Gran Abs Auto 0.01 X10*3/uL (0.00-0.03); Imm Gran Pct Auto 0.2 % (0.0-0.4); Lymphocytes Percent Auto 27.3 % (20-40); Mean Corpuscular HGB Conc 36.3 g/dl (31.0-36.0); PLT CLUMP 1; Red Cell Distribution Width 14.9 % (11.0-16.0); SCAN SMEAR FLAG 1
[2022-04-18 15:09] LABS: Eosinophils Absolute Auto 0.2 X10*3/uL (0.0-0.4); Eosinophils Percent Auto 3.5 % (0-4); Hematocrit 42.2 % (42.0-52.0); Hemoglobin 15.3 g/dl (14.0-18.0); Lymphocytes Absolute Auto 1.2 X10*3/uL (1.2-4.9); Mean Corpuscular Volume 91.1 fL (80.0-98.0); Monocytes Absolute Auto 0.4 X10*3/uL (0.1-1.2); Monocytes Percent Auto 8.8 % (2-11); Neutrophils Absolute Auto 2.7 x10*3/uL (2.0-8.3); Neutrophils Percent Auto 59.3 % (45-73); Red Blood Count 4.63 X10*6/uL (4.60-5.80)
[2022-04-18 15:20] LABS: Alanine Aminotransferase 28 U/L (0-40); Albumin Level 3.7 g/dL (3.5-5.0); Alkaline Phosphatase 130 U/L (39-117); Anion Gap 14 (12-20); Aspartate Amino Transferase 44 U/L (5-37); Bilirubin Total 1.7 mg/dL (0.0-1.0); Blood Urea Nitrogen 13 mg/dL (9-16); Carbon Dioxide 23 mmol/L (22-29); Chloride 109 mmol/L (96-108); Estimated Glomerular Filt Rate > 60; Glucose Random 281 mg/dL (60-115); Potassium 4.1 mmol/L (3.3-5.1); Sodium 142 mmol/L (135-145); Total Protein 6.9 g/dL (6.5-8.0)
[2022-04-18 15:21] LABS: Platelet Count 69 X10*3/uL (160-400); White Blood Count 4.5 X10*3/uL (4.8-10.8)
[2022-04-18 15:22] LABS: MANUAL DIFF FLAG NO
--- NOTE | 2022-04-18 15:38 | MHC.HEMONCMA ---
Pt was in for follow up. Clinical summary reviewed and updated, VSS. Labs were drawn. Pt to return in 4 months.
--- NOTE | 2022-08-26 15:17 | P.PNHO-ONC_ITS ---
Medical Summary - Medical Summary Date of Service: 08/26/22 Chief complaint: Follow-up for: Adenocarcinoma of the esophagus. Primary Care Provider: Nikhil Gray MEDICAL LAB DIRECTOR- Medical Summary: Diagnosis: Adenocarcinoma of the esophagus, of the lower end. Current Therapy: 1. Combined modality therapy with radiation along with weekly carboplatin and Taxol, had 4 weeks, Completed 08/21/2017. 2. Had disease recurrence, seen at the EG junction on endoscopy on October 27, 2020. Completed re- radiation, 07/04/20. Interval History Interval history: This is a pleasant 61 year-old gentleman, here for a follow-up visit. He tells me he had been doing well. He denies any difficulty with swallowing. He is able to swallow, all types of foods. He denies easy fatigability. No headache, he gets occasional dizziness. Denies chest pain or trouble breathing. No cough no sputum. Denies dysphagia nor odynophagia. He is eating everything. He denies abdominal pain nausea vomiting heartburn indigestion. Bowels are working without any gross blood in it. There is no black/dark stool. He enjoys a good appetite. He has gained weight. INTERIM HISTORY: On 04/14 he was seen in the ER: 61-year-old male with history of type 2 diabetes, HTN, seizures, adenocarcinoma of the esophagus who presents to the ER for evaluation of a left thumb injury, through and through injury with a drill bit. X-ray reviewed and does not appear to have bony involvement. He has normal function of all tendons. No sensory deficit. No active bleeding. The wound was soaked in Betadine, saline, Hydrogen peroxide combination for antiseptic affect. Will prescribe prophylactic antibiotics to prevent infection. Tdap given. Patient counseled on wound care and return precautions. He is stable for discharge home. He was seen by Dr. Suggs on 04/02/22: Upper endoscopy in August showed no evidence of recurrence of his esophageal adenocarcinoma. Gastric polyp biopsy showed polypoid foamy hyperplasia chronic active gastritis and no H pylori. He continues on the Protonix 40 mg. With respect to his liver disease ultrasound earlier this year showed patent tips shunt without focal liver lesion. No varices were noted on endoscopy in August. Radiation changes were seen. Colonoscopy showed a nonbleeding 8 mm avium on the ileocecal valve and hemorrhoids. His anemia has resolved with iron supplementation. No endoscopy was recommended at that time. Previous history: He had fallen over the weekend he fell. They had a yd sale at their home. He just tripped. Since then he had pain in his right knee. He has some abrasions there. He has a hard time walking. l proceeded with an x-ray of the knee on 01/03: Mild osteopenia. No visible acute fracture, dislocation or subluxation seen. He tells me his knee is much better now. He cannot kneel down but he is able to bend it. He had an upper endoscopy on 02/12/[address] Suggs. Did not reveal any residual cancer. He is on a new medication for diabetes. It does appear to be helping. Blood sugars are in the range of 118-120. He is in good spirits. Rest of the review of systems is unremarkable. He tells me he has some blood vessels growth in his eyes. He is under the care of [facility] [place]. They are monitoring it for now. He denies any major visual complaints. Interim history: He was noted to be rather anemic. He required blood transfusion. He underwent an upper endoscopy and colonoscopy on 09/[address] Suggs. Results: UPPER ENDOSCOPY: Esophagus: The esophagus showed changes consistent with radiation therapy over the lower 1/3 with small areas of petechiae measuring 1-2 mm. There was no evidence of recurrent adenocarcinoma at the EG junction. No biopsies were obtained due to the patient's history of esophageal varices and thrombocytopenia. No varices were seen. Stomach: The stomach showed no evidence of masses or ulcers. There were 2 polyps present at the antrum near the pyloric channel. These had been seen on prior examinations and they were re-biopsied. The largest measured approximately 15 mm x 20 mm. Duodenum: The bulb and second portion were normal. COLONOSCOPY: The terminal ileum was normal. The prep was excellent. There was an 8 mm nonbleeding AVM on the ileocecal valve. No other AVMs were identified. No polyps were seen. Retroflexed examination showed moderate-sized internal hemorrhoids. IMPRESSION: 1. Radiation changes to the lower esophagus. 2. Gastric polyps. 3. Colonic arteriovenous malformation. RECOMMENDATION: 1. Follow up the biopsy results. 2. Repeat colonoscopy is recommended in 10 years for average risk individuals. 3. Continue present therapy. Previous history: He completed re irradiation in May. He tolerated it well for the most part. He did not develop any swallowing difficulty however he did end up with a cold and a cough which lasted about 5 weeks. It has resolved now. He had a stroke several months ago. He went through a course physical therapy. He still has residual right upper extremity weakness. He is trying to stay active. He does yard work at home. He denies any dysphagia or odynophagia. Review of Systems - Constitutional Reports no additional constitutional complaints, Denies fatigue, Denies fever(s), Denies weakness, Reports weight gain - Eyes Reports no additional eye complaints - ENT Reports no additional ear, nose, mouth, and throat complaints - Cardiovascular Reports no additional cardiovascular complaints - Respiratory Reports no additional respiratory complaints - Gastrointestinal Reports no additional gastrointestinal complaints - Genitourinary Genitourinary: Reports no additional male genitourinary complaints - Musculoskeletal Reports no additional musculoskeletal complaints - Integumentary/Breasts Skin/Breast: Reports no additional skin complaints - Neurologic Reports no additional neurologic complaints, Reports abnormal gait, Denies frequent falls, Reports focal weakness, Denies weakness - Psychiatric Reports no additional psychiatric complaints - Endocrine Reports no additional endocrine complaints - Hematologic/Lymphatic Reports no additional hematologic/lymphatic complaints - Allergic/Immunologic Reports no additional allergic/immunologic complaints [facility] Medical History: Medical History (Last Reviewed 08/26/22 @ 15:20 by Bobby Leija RN) Adenocarcinoma of lower esophagus Alcoholic cirrhosis Anemia Constipation Diabetes Elevated ferritin Esophageal varices Esophagus, carcinoma Hepatic cirrhosis Hepatitis C Hx of splenomegaly Hyperlipidemia LDL goal <70 Male circumcision Seizure disorder Stroke Thrombocytopenia Type 2 diabetes mellitus with diabetic polyneuropathy Type 2 diabetes mellitus with hyperglycemia Functional capacity: independent ambulation Patient : No Family History: Family History (Last Reviewed 08/26/22 @ 15:20 by Bobby Leija RN) Father No problems noted. Mother Diabetes mellitus Surgical History: Surgical History (Last Reviewed 08/26/22 @ 15:20 by Bobby Leija RN) Hx of circumcision Hx of colonoscopy Hx of endoscopy Social History: Social History (Last Reviewed 08/26/22 @ 15:20 by Bobby Leija RN) Living Situation History: Household Members: Spouse Household Members Other:: Spouse: Antoni Housing: House Are you a primary resident care assistant to a significant other at home: No Do you presently have visiting nurse or other home services: No Alcohol History Details: 1. How often do you have a drink containing alcohol?: a. Never Tobacco History: Patient Tobacco Use Status: Former Tobacco user Tobacco use type: Cigarette Years Smoked: 10 Smoked in Last 30 Days: No Smoke Quit Date: 40 years ago e-Cigarette/Vaping Use: Never Used Second Hand Smoke Exposure: No Substance Use History: Use of substances other than those prescribed or required for medical reasons : No Domestic Abuse History: Have you been hit, kicked, punched, or otherwise hurt by someone within the past year? If so, by whom?: No Do you feel safe in your current relationship?: Yes Advance Directives: Advance Directives: No Advance Directives Information Provided: No Advance Directives Date on File: 01/28/21 Homicidal Assessment: Do you have thoughts of harming others: None Do you have a plan to hurt others: No Plan Do you have the means to hurt others: No Nutrition Assessment: Recently lost weight without trying: No Patient : No Occupation Assessmet: service: No Current occupational status: disabled Oncology Screenings - ECOG Performance Status ECOG Performance Status: 0 Home Medications and Allergies Home Medications Medication Instructions Recorded Confirmed Type cholecalciferol (vitamin D3) 25 25 mcg PO DAILY 04/06/20 08/26/22 History mcg (1,000 unit) tablet (Vitamin D3) lancets 33 gauge #100 ea 08/15/20 08/26/22 History pen needle, diabetic 31 gauge x #1,200 ea 08/15/20 08/26/22 History 5/16 levetiracetam 500 mg tablet 500 mg PO TID 01/17/22 08/26/22 History (Keppra) Allergies Allergy/AdvReac Type Severity Reaction Status Date / Time No Known Allergies Allergy Verified 08/26/22 15:20 Exam Vital signs: Vital Signs Temp 97.6 F 04/18/22 15:03 Pulse 62 04/18/22 15:03 Resp 14 04/18/22 15:03 BP 124/76 04/18/22 15:03 Pulse Ox 97 04/18/22 15:03 O2 Del Method 04/18/22 15:03 Weight 95.7 kg BMI result Body Mass Index 33.0 - Constitutional Present: no acute distress - Routine HEENT Exam Head: Present: normal inspection Eye: Present: normal appearance ENT: Present: mucous membranes moist - Routine Neck Exam Present: full ROM - Routine Respiratory Exam Present: CTAB - Routine Cardiovascular Exam Cardiovascular: Present: RRR, S1, S2 - Routine Abdominal Exam Present: soft, nontender - Routine Extremities Exam Present: joint swelling, nontender - Routine Back/Spine/Pelvis Exam Back/Spine: Present: full ROM - Routine Skin Exam Present: intact - Routine Neurological Exam Present: alert, oriented X3 - Detailed Neurological Exam: Coma Scale Eye Opening: Spontaneous (4) - Routine Psychiatric Exam Present: normal affect Data - Labs CBC & Chem 7: 08/26/22 15:15 08/26/22 15:15 - Imaging Radiologist's impression: ITS Impressions Knee X-Ray 12/31/21 13:49 IMPRESSION: Mild osteopenia. No visible acute fracture, dislocation or subluxation seen. Assessment and Plan Patient Active problem list reviewed?: Yes (1) Adenocarcinoma of lower esophagus Status: Acute Assessment and plan: This is a pleasant, 59 year-old gentleman with history of Hepatitis C, Esophageal Adenocarcinoma. He completed combined modality therapy with radiation plus chemotherapy, in August of 2017. CT chest with contrast performed 10/22/17 showed wall thickening of the distal thoracic esophagus, enlarged paraesophageal varices, no enlarged hilar or mediastinal lymph nodes, enlarged spleen and mild upper abdominal lymphadenopathy, largest lymph node in the periportal region measuring 1.5x1.3 cm. Also a nonspecific 1 cm lucent lesion in the superior endplate of T7 would whole-body, ? metastasis. Several nonspecific lytic lesions in the thoracic and visualized upper lumbar vertebral bodies questionable for possible metastatic disease. He denies any dysphagia or odynophagia. Routine endoscopy reveals disease recurrence, with a 2 cm mass just below the EG junction. Pathology confirms: Moderately differentiated Adenocarcinoma. A PET scan, was denied. CT scan of the chest from November 24 revealed: 1. No pulmonary nodule, mass or groundglass opacity is seen. 2. There is no thoracic lymphadenopathy. 3. There is are cirrhotic changes of the liver redemonstrated, without focal mass seen. 4. There is interim placement of a portocaval shunt. The splenic and mesenteric veins appear patent. Upper abdominal varices are less pronounced than seen. 5. There is stable wall thickening of the gastroesophageal junction. 6. No abdominopelvic metastasis, free fluid or lymphadenopathy is seen. Unfortunately, he is really not a surgical candidate. He has already had radiation therapy so that is not an option. He underwent an endoscopic ultrasound to evaluate for the thickness of the tumor, and possible adenopathy. This was done on January [address] Elizabet Gilliam. Findings: Endoscopy revealed a 1.5-2 cm GE junction mass, that appeared to be semi pedunculated. Evidence of mild portal hypertensive gastropathy in the stomach. Two small polyps noted in the stomach 1 in the gastric body and other just proximal to the pyloric sphincter. Polyps appeared reactive. Endoscopic ultrasound: Tumor was hypoechoic 1.8 x 1.4 cm, likely T1b, and 0. The MP was intact. Small varices noted in the submucosa. No aortic nor vertebral invasion. Normal celiac takeoff. No obvious lesion in the liver. Normal appearing pancreatic duct. The plan initially was to proceed with photodynamic therapy. That will help to avoid systemic chemotherapy. He has seen Dr. Lucio Mo, at [facility]. His note mentions: Endosonographically, stage T1b. This is a difficult situation. Locally recurrent GE junction adenocarcinoma already subjected to 50 Gy of radiation. He has no regional nor distant metastatic disease. Ideally surgical resection should be done but his comorbidities that too significant to allow for a safe surgery. Endoscopic submucous ectomy still relatively early in the evolution of the technique and since this lesions pans 2.5 cm in longitudinal dimension that may be too much for endoscopic resection. We have to consider other local ablative modalities to take care of this recurrence. He was given a couple of options: 1. Photodynamic therapy. 2. Brachytherapy. He would favor brachy therapy, since his visceral disease is worrisome, in regards to the bleeding from his variceal disease. That would be more of a risk with photodynamic therapy. (he is not in favor of having to hide from light for 4-6 weeks if he undergoes photodynamic therapy.) Overall the safety profile of brachytherapy would be higher than photodynamic therapy. It also has a better track record. I called the Radiation Oncology Department at [facility] to expedite his appointment for brachy therapy there. D/W Radiation therapist at [facility] [place]. They are recommending re-irradiation. I had discussed with Dr. Sarmiento at [facility], to set it up here, for his convenience. His appointment was on April 12. She did discussed the option of endoscopic resection with the surgeon however they were not keen on it on account of his history of varices. He had a PET scan done, on 05/11/2020 at [facility] which revealed: Focal area of distal esophageal wall thickening with mildly increased activity, SUV max of 5.5. No findings suggestive of distal metastatic disease. He was then referred to Dr. Sarmiento. He completed re-irradiation at [facility], few months ago. He had repeat upper endoscopy by Dr. Suggs, on 09/25. This revealed: Esophagus: The esophagus showed changes consistent with his prior radiation therapy. There was a nodular area just below the EG junction with some inflammatory change. This was biopsied. There were no visible esophageal varices or gastric varices. Stomach: The stomach showed no evidence of masses or ulcers. The previously identified gastric polyps were present. They appeared unchanged from his prior examination. Biopsies were obtained from the gastric polyps. Duodenum: The bulb and second portion were normal. 1. Adenocarcinoma of the EG junction, status post biopsy. 2. Gastric polyps. Unfortunately, the biopsy results revealed: Ulcerated cardiac type mucosa with high-grade dysplasia/in Situ adenocarcinoma. No squamous epithelium seen. This could be residual after radiation and may disappear with the tincture of time. However there is no invasive component, for which any medical treatment could be recommended. He had a left CVA with right-sided weakness. He had PT done. He still has residual right upper extremity weakness but otherwise doing well. Denies any GI complaints. Ultrasound of the abdomen from 02/14/21 revealed: Fatty infiltration of the liver. Patent TIPS. Splenomegaly. He had an upper endoscopy on the 02/12/[address] Suggs which revealed: No evidence of recurrent adenocarcinoma at the EG junction. He has pancytopenia likely related to his liver disease and cirrhosis. His blood count had dropped significantly, at his last visit even though he was not very symptomatic. At his visit on 08/15/21, his hemoglobin went down to 7.2. Iron studies: 20/458/4/6. B12 452. Folate 11.2. Concern was for disease recurrence versus another source of GI blood loss. He was given 2 units of packed RBCs. He underwent an upper endoscopy on 09/[address] Suggs. This revealed a findings consistent with radiation esophagitis/gastritis. Pathology revealed: Polypoid foveolar hyperplasia with chronic active gastritis, negative for H pylori, intestinal metaplasia and dysplasia. The colonoscopy was negative. He was advised to take the proton pump inhibitor twice a day and at Carafate however he did not take the Carafate. He was taking oral iron. Hemoglobin from September 13 was 9.6. 01/03, his hemoglobin is 15.7. It was 14.4, in October. This is reassuring. On 12/27, he fell down and injured his right knee. l proceeded with an x-ray of the knee. This did not reveal any fracture. His knee is all better. He is doing well. He denies any dysphagia. His blood count is normal now. Hemoglobin is 17. PLAN: The plan is to continue to follow him along. He was recently seen by Dr. Suggs, who gave him a clear bill of health. He did not consider an endoscopy at this time. He will return in 6 months for a follow-up visit. He will follow-up with his primary as well. Thank you, CC: Dr. Gray. Dr. Nikki Acevedo. Dr. Suggs. Dr. Mo. - Time Spent With Patient Time Spent with Patient (in minutes): 25
[2022-08-26 15:19] VITALS: BP 124/74; PULSE 67; RESP 18; TEMP 36.2; O2SAT 98; BMI 32.1
[2022-08-26 15:28] LABS: Basophils Percent Auto 0.7 % (0-2); Hemoglobin 17.1 g/dl (14.0-18.0); PLT CLUMP 1; SCAN SMEAR FLAG 1
[2022-08-26 15:30] LABS: Eosinophils Absolute Auto 0.2 X10*3/uL (0.0-0.4); Eosinophils Percent Auto 3.7 % (0-4); Hematocrit 47.8 % (42.0-52.0); Lymphocytes Absolute Auto 1.4 X10*3/uL (1.2-4.9); Lymphocytes Percent Auto 25.3 % (20-40); Mean Corpuscular HGB Conc 35.8 g/dl (31.0-36.0); Mean Corpuscular Hemoglobin 32.1 pg (27.0-33.0); Mean Corpuscular Volume 89.7 fL (80.0-98.0); Mean Platelet Volume 9.3 fL (9.4-12.4); Monocytes Absolute Auto 0.5 X10*3/uL (0.1-1.2); Monocytes Percent Auto 8.6 % (2-11); Neutrophils Absolute Auto 3.4 x10*3/uL (2.0-8.3); Neutrophils Percent Auto 61.7 % (45-73); Red Blood Count 5.33 X10*6/uL (4.60-5.80); Red Cell Distribution Width 14.7 % (11.0-16.0)
[2022-08-26 15:33] LABS: Platelet Count 79 X10*3/uL (160-400); White Blood Count 5.5 X10*3/uL (4.8-10.8)
[2022-08-26 15:34] LABS: MANUAL DIFF FLAG NO
[2022-08-26 16:03] LABS: Alanine Aminotransferase 32 U/L (0-40); Albumin Level 3.7 g/dL (3.5-5.0); Alkaline Phosphatase 111 U/L (39-117); Anion Gap 12 (12-20); Aspartate Amino Transferase 42 U/L (5-37); Bilirubin Total 2.4 mg/dL (0.0-1.0); Blood Urea Nitrogen 12 mg/dL (9-16); Calcium 9.2 mg/dL (8.4-10.2); Carbon Dioxide 25 mmol/L (22-29); Chloride 110 mmol/L (96-108); Estimated Glomerular Filt Rate > 60; Glucose Random 189 mg/dL (60-115); Potassium 4.3 mmol/L (3.3-5.1); Sodium 143 mmol/L (135-145); Total Protein 6.7 g/dL (6.5-8.0)
--- NOTE | 2022-08-26 17:42 | MHC.HEMONC ---
Pt was in for sched Onc f/u appt, labs drawn/reviewed, VSS, clinical summary updated, pt's does of PO keppra is reduced, provider trying to wean him off as he no longer has seizures. Pt reports no problems today. Dr. Crawford was in to meet w/ pt. Pt was departed from clinic.
[2023-11-19 09:00] LABS: MANUAL DIFF FLAG NO
[2023-11-19 09:02] VITALS: BP 117/67; PULSE 70; O2SAT 99; BMI 29.6
--- NOTE | 2023-11-19 09:15 | PM.HEMONCPN ---
Medical Summary - Medical Summary Date of Service: 11/19/23 Chief complaint: Follow-up for: History of carcinoma of the esophagus. Primary Care Provider: CLAUDIO Rincon- Medical Summary: Diagnosis: Adenocarcinoma of the esophagus, of the lower end. Current Therapy: 1. Combined modality therapy with radiation along with weekly carboplatin and Taxol, had 4 weeks, Completed 08/21/2017. 2. Had disease recurrence, seen at the EG junction on endoscopy on October 27, 2020. Completed re- radiation, 07/04/20. Interval History Interval history: This is a pleasant 63 year-old gentleman, here for a follow-up visit. He tells me he has had back pain. This started after he was using a sledgehammer. 4?22: MRI of the spine revealed: 1. Subacute T7 upper endplate impaction fracture with similar approximately 50% height loss and anterior wedging compared to radiograph from 08/24/2023. 2. Marrow signal abnormality throughout the thoracic spinal column as above that be correlated for history of prior radiation therapy with radiation induced fatty marrow signal change in the midthoracic spine likely on a background of diffuse osteopenia. 3. Cirrhotic hepatic morphology and splenomegaly. Soft tissue thickening in the region of the distal esophagus, better characterized on prior PET from 12/03/2017. He is actually scheduled for kyphoplasty on 11/22 by interventional radiology. Other than that he has been doing well. He denies any difficulty with swallowing. He takes frequent small meals but is able to swallow, all types of foods. He denies easy fatigability. No headache, he gets occasional dizziness. Denies chest pain or trouble breathing. No cough no sputum. Denies dysphagia nor odynophagia. He is eating everything. He denies abdominal pain nausea vomiting heartburn indigestion. Bowels are working without any gross blood in it. There is no black/dark stool. He enjoys a good appetite. He has gained weight. INTERIM HISTORY: On 04/14 he was seen in the ER: 61-year-old male with history of type 2 diabetes, HTN, seizures, adenocarcinoma of the esophagus who presents to the ER for evaluation of a left thumb injury, through and through injury with a drill bit. X-ray reviewed and does not appear to have bony involvement. He has normal function of all tendons. No sensory deficit. No active bleeding. The wound was soaked in Betadine, saline, Hydrogen peroxide combination for antiseptic affect. Will prescribe prophylactic antibiotics to prevent infection. Tdap given. Patient counseled on wound care and return precautions. He is stable for discharge home. He was seen by Dr. Suggs on 04/02/22: Upper endoscopy in August showed no evidence of recurrence of his esophageal adenocarcinoma. Gastric polyp biopsy showed polypoid foamy hyperplasia chronic active gastritis and no H pylori. He continues on the Protonix 40 mg. With respect to his liver disease ultrasound earlier this year showed patent tips shunt without focal liver lesion. No varices were noted on endoscopy in August. Radiation changes were seen. Colonoscopy showed a nonbleeding 8 mm avium on the ileocecal valve and hemorrhoids. His anemia has resolved with iron supplementation. No endoscopy was recommended at that time. Previous history: He had fallen over the weekend he fell. They had a yd sale at their home. He just tripped. Since then he had pain in his right knee. He has some abrasions there. He has a hard time walking. l proceeded with an x-ray of the knee on 01/03: Mild osteopenia. No visible acute fracture, dislocation or subluxation seen. He tells me his knee is much better now. He cannot kneel down but he is able to bend it. He had an upper endoscopy on 02/12/[address] Suggs. Did not reveal any residual cancer. He is on a new medication for diabetes. It does appear to be helping. Blood sugars are in the range of 118-120. He is in good spirits. Rest of the review of systems is unremarkable. He tells me he has some blood vessels growth in his eyes. He is under the care of [facility] in [place]. They are monitoring it for now. He denies any major visual complaints. Interim history: He was noted to be rather anemic. He required blood transfusion. He underwent an upper endoscopy and colonoscopy on 09/[address] Suggs. Results: UPPER ENDOSCOPY: Esophagus: The esophagus showed changes consistent with radiation therapy over the lower 1/3 with small areas of petechiae measuring 1-2 mm. There was no evidence of recurrent adenocarcinoma at the EG junction. No biopsies were obtained due to the patient's history of esophageal varices and thrombocytopenia. No varices were seen. Stomach: The stomach showed no evidence of masses or ulcers. There were 2 polyps present at the antrum near the pyloric channel. These had been seen on prior examinations and they were re-biopsied. The largest measured approximately 15 mm x 20 mm. Duodenum: The bulb and second portion were normal. COLONOSCOPY: The terminal ileum was normal. The prep was excellent. There was an 8 mm nonbleeding AVM on the ileocecal valve. No other AVMs were identified. No polyps were seen. Retroflexed examination showed moderate-sized internal hemorrhoids. IMPRESSION: 1. Radiation changes to the lower esophagus. 2. Gastric polyps. 3. Colonic arteriovenous malformation. RECOMMENDATION: 1. Follow up the biopsy results. 2. Repeat colonoscopy is recommended in 10 years for average risk individuals. 3. Continue present therapy. Previous history: He completed re irradiation in May. He tolerated it well for the most part. He did not develop any swallowing difficulty however he did end up with a cold and a cough which lasted about 5 weeks. It has resolved now. He had a stroke several months ago. He went through a course physical therapy. He still has residual right upper extremity weakness. He is trying to stay active. He does yard work at home. He denies any dysphagia or odynophagia. Review of Systems - Constitutional Reports no additional constitutional complaints, Denies lack of energy, Denies weight loss - Eyes Reports no additional eye complaints - ENT Reports no additional ear, nose, mouth, and throat complaints - Cardiovascular Reports no additional cardiovascular complaints - Respiratory Reports no additional respiratory complaints - Gastrointestinal Reports no additional gastrointestinal complaints - Genitourinary Genitourinary: Reports no additional male genitourinary complaints - Musculoskeletal Reports no additional musculoskeletal complaints - Integumentary/Breasts Skin/Breast: Reports no additional skin complaints - Neurologic Reports no additional neurologic complaints, Reports abnormal gait, Denies frequent falls, Reports focal weakness, Denies weakness - Psychiatric Reports no additional psychiatric complaints - Endocrine Reports no additional endocrine complaints - Hematologic/Lymphatic Reports no additional hematologic/lymphatic complaints - Allergic/Immunologic Reports no additional allergic/immunologic complaints [facility] Medical History: Medical History (Last Updated 11/19/23 @ 10:15 by Virgen Hall RN) Adenocarcinoma of lower esophagus Alcoholic cirrhosis Anemia Constipation Diabetes Elevated ferritin Esophageal varices Esophagus, carcinoma Hepatic cirrhosis Hepatitis C History of blood transfusion History of GI bleed Onset Date: ~2017 Hx of splenomegaly Hyperlipidemia LDL goal <70 Male circumcision Seizure disorder Stroke Thrombocytopenia Type 2 diabetes mellitus with diabetic polyneuropathy Type 2 diabetes mellitus with hyperglycemia Wears dentures Functional capacity: independent ambulation Patient : No Family History: Family History (Last Reviewed 11/19/23 @ 09:01 by Maxime Ludwig) Father No problems noted. Mother Diabetes mellitus Surgical History: Surgical History (Last Updated 11/19/23 @ 10:03 by Virgen Hall RN) History of surgery on lower extremity Onset Date: ~2003 Hx of circumcision Hx of colonoscopy Onset Date: 08/2021 Hx of endoscopy Onset Date: 08/2021 S/P transjugular intrahepatic portosystemic shunt Onset Date: ~2018 Social History: Social History (Last Reviewed 11/19/23 @ 09:01 by Maxime Ludwig) Living Situation History: Household Members: Spouse Household Members Other:: Spouse: Antoni Housing: House Are you a primary lawn care technician to a significant other at home: No Do you presently have visiting nurse or other home services: No Alcohol History Details: 1. How often do you have a drink containing alcohol?: a. Never Tobacco History: Patient Tobacco Use Status: Former Tobacco user Tobacco use type: Cigarette Years Smoked: 10 Smoked in Last 30 Days: No Smoking End Date: 11/19/23 e-Cigarette/Vaping Use: Never Used Second Hand Smoke Exposure: No Substance Use History: Use of substances other than those prescribed or required for medical reasons: No Domestic Abuse History: Have you been hit, kicked, punched, or otherwise hurt by someone within the past year? If so, by whom?: No Do you feel safe in your current relationship?: Yes Advance Directives: Advance Directives: No Advance Directives Information Provided: No Advance Directives Date on File: 01/28/21 Homicidal Assessment: Do you have thoughts of harming others: None Do you have a plan to hurt others: No Plan Do you have the means to hurt others: No Nutrition Assessment: Recently lost weight without trying: No Patient : No Occupation Assessmet: service: No Current occupational status: disabled Oncology Screenings - ECOG Performance Status ECOG Performance Status: 0 Home Medications and Allergies Home Medications ?Medication ?Instructions ?Recorded ?Confirmed ?Type cholecalciferol (vitamin D3) 25 25 mcg PO DAILY 04/06/20 11/19/23 History mcg (1,000 unit) tablet (Vitamin D3) lancets 33 gauge #100 ea 08/15/20 11/19/23 History pen needle, diabetic 31 gauge x #1,200 ea 08/15/20 11/19/23 History 5/16 levetiracetam 500 mg tablet 500 mg PO TID 01/17/22 11/19/23 History (Keppra) Allergies Allergy/AdvReac Type Severity Reaction Status Date / Time No Known Allergies Allergy Verified 11/19/23 09:54 Exam Vital signs: Vital Signs Temp 97.1 F 08/26/22 15:19 Pulse 70 11/19/23 09:02 Resp 18 08/26/22 15:19 BP 117/67 11/19/23 09:02 Pulse Ox 99 11/19/23 09:02 O2 Del Method Room Air 11/19/23 09:02 Intake & Output 11/18/23 11/19/23 11/19/23 18:59 06:59 18:59 Other: Weight 85.6 kg Weight in Grams 01494 Weight 85.6 kg BMI result Body Mass Index 29.6 - Constitutional Present: no acute distress - Routine HEENT Exam Head: Present: normal inspection Eye: Present: normal appearance ENT: Present: mucous membranes moist - Routine Neck Exam Present: full ROM - Routine Respiratory Exam Present: CTAB - Routine Cardiovascular Exam Cardiovascular: Present: RRR, S1, S2 - Routine Abdominal Exam Present: soft, nontender - Routine Extremities Exam Present: joint swelling, nontender - Routine Back/Spine/Pelvis Exam Back/Spine: Present: full ROM - Routine Skin Exam Present: intact - Routine Neurological Exam Present: alert, oriented X3 - Detailed Neurological Exam: Coma Scale Eye Opening: Spontaneous (4) - Routine Psychiatric Exam Present: normal affect Data - Labs CBC & Chem 7: 11/19/23 08:58 11/19/23 08:58 - Imaging Radiologist's impression: ITS Impressions Knee X-Ray 12/31/21 13:49 IMPRESSION: Mild osteopenia. No visible acute fracture, dislocation or subluxation seen. Assessment and Plan Patient Active problem list reviewed?: Yes (1) Adenocarcinoma of lower esophagus Status: Acute Assessment and plan: This is a pleasant, 59 year-old gentleman with history of Hepatitis C, Esophageal Adenocarcinoma. He completed combined modality therapy with radiation plus chemotherapy, in August of 2017. CT chest with contrast performed 10/22/17 showed wall thickening of the distal thoracic esophagus, enlarged paraesophageal varices, no enlarged hilar or mediastinal lymph nodes, enlarged spleen and mild upper abdominal lymphadenopathy, largest lymph node in the periportal region measuring 1.5x1.3 cm. Also a nonspecific 1 cm lucent lesion in the superior endplate of T7 would whole-body, ? metastasis. Several nonspecific lytic lesions in the thoracic and visualized upper lumbar vertebral bodies questionable for possible metastatic disease. He denies any dysphagia or odynophagia. Routine endoscopy reveals disease recurrence, with a 2 cm mass just below the EG junction. Pathology confirms: Moderately differentiated Adenocarcinoma. A PET scan, was denied. CT scan of the chest from November 24 revealed: 1. No pulmonary nodule, mass or groundglass opacity is seen. 2. There is no thoracic lymphadenopathy. 3. There is are cirrhotic changes of the liver redemonstrated, without focal mass seen. 4. There is interim placement of a portocaval shunt. The splenic and mesenteric veins appear patent. Upper abdominal varices are less pronounced than seen. 5. There is stable wall thickening of the gastroesophageal junction. 6. No abdominopelvic metastasis, free fluid or lymphadenopathy is seen. Unfortunately, he is really not a surgical candidate. He has already had radiation therapy so that is not an option. He underwent an endoscopic ultrasound to evaluate for the thickness of the tumor, and possible adenopathy. This was done on January [address] Elizabet Gilliam. Findings: Endoscopy revealed a 1.5-2 cm GE junction mass, that appeared to be semi pedunculated. Evidence of mild portal hypertensive gastropathy in the stomach. Two small polyps noted in the stomach 1 in the gastric body and other just proximal to the pyloric sphincter. Polyps appeared reactive. Endoscopic ultrasound: Tumor was hypoechoic 1.8 x 1.4 cm, likely T1b, and 0. The MP was intact. Small varices noted in the submucosa. No aortic nor vertebral invasion. Normal celiac takeoff. No obvious lesion in the liver. Normal appearing pancreatic duct. The plan initially was to proceed with photodynamic therapy. That will help to avoid systemic chemotherapy. He has seen Dr. Lucio Mo, at [facility]. His note mentions: Endosonographically, stage T1b. This is a difficult situation. Locally recurrent GE junction adenocarcinoma already subjected to 50 Gy of radiation. He has no regional nor distant metastatic disease. Ideally surgical resection should be done but his comorbidities that too significant to allow for a safe surgery. Endoscopic submucous ectomy still relatively early in the evolution of the technique and since this lesions pans 2.5 cm in longitudinal dimension that may be too much for endoscopic resection. We have to consider other local ablative modalities to take care of this recurrence. He was given a couple of options: 1. Photodynamic therapy. 2. Brachytherapy. He would favor brachy therapy, since his visceral disease is worrisome, in regards to the bleeding from his variceal disease. That would be more of a risk with photodynamic therapy. (he is not in favor of having to hide from light for 4-6 weeks if he undergoes photodynamic therapy.) Overall the safety profile of brachytherapy would be higher than photodynamic therapy. It also has a better track record. I called the Radiation Oncology Department at [facility] to expedite his appointment for brachy therapy there. D/W Radiation therapist at [facility]. They are recommending re-irradiation. I had discussed with Dr. Sarmiento at [facility], to set it up here, for his convenience. His appointment was on April 12. She did discussed the option of endoscopic resection with the surgeon however they were not keen on it on account of his history of varices. He had a PET scan done, on 05/11/2020 at [facility] which revealed: Focal area of distal esophageal wall thickening with mildly increased activity, SUV max of 5.5. No findings suggestive of distal metastatic disease. He was then referred to Dr. Sarmiento. He completed re-irradiation at [facility], few months ago. He had repeat upper endoscopy by Dr. Suggs, on 09/25. This revealed: Esophagus: The esophagus showed changes consistent with his prior radiation therapy. There was a nodular area just below the EG junction with some inflammatory change. This was biopsied. There were no visible esophageal varices or gastric varices. Stomach: The stomach showed no evidence of masses or ulcers. The previously identified gastric polyps were present. They appeared unchanged from his prior examination. Biopsies were obtained from the gastric polyps. Duodenum: The bulb and second portion were normal. 1. Adenocarcinoma of the EG junction, status post biopsy. 2. Gastric polyps. Unfortunately, the biopsy results revealed: Ulcerated cardiac type mucosa with high-grade dysplasia/in Situ adenocarcinoma. No squamous epithelium seen. This could be residual after radiation and may disappear with the tincture of time. However there is no invasive component, for which any medical treatment could be recommended. He had a left CVA with right-sided weakness. He had PT done. He still has residual right upper extremity weakness but otherwise doing well. Denies any GI complaints. Ultrasound of the abdomen from 02/14/21 revealed: Fatty infiltration of the liver. Patent TIPS. Splenomegaly. He had an upper endoscopy on the 02/12/[address] Suggs which revealed: No evidence of recurrent adenocarcinoma at the EG junction. He has pancytopenia likely related to his liver disease and cirrhosis. His blood count had dropped significantly, at his last visit even though he was not very symptomatic. At his visit on 08/15/21, his hemoglobin went down to 7.2. Iron studies: 458/4/6. B12 452. Folate 11.2. Concern was for disease recurrence versus another source of GI blood loss. He was given 2 units of packed RBCs. He underwent an upper endoscopy on 09/[address] Suggs. This revealed a findings consistent with radiation esophagitis/gastritis. Pathology revealed: Polypoid foveolar hyperplasia with chronic active gastritis, negative for H pylori, intestinal metaplasia and dysplasia. The colonoscopy was negative. He was advised to take the proton pump inhibitor twice a day and at Carafate however he did not take the Carafate. He was taking oral iron. Hemoglobin from September 13 was 9.6. 01/03, his hemoglobin is 15.7. It was 14.4, in October. This is reassuring. On 12/27, he fell down and injured his right knee. l proceeded with an x-ray of the knee. This did not reveal any fracture. His knee is all better. He injured his back. CT scan of the T-spine from 11/04 revealed: Stable appearance to the moderate T7 vertebral body compression fracture from September 2023 thoracic spine MRI. There is lucency adjacent to the fracture lines and overall increased sclerosis of the vertebral body. Given history of esophageal cancer, possible pathologic fracture should be considered. Increased sclerosis is likely related to postradiation changes. He is scheduled for kyphoplasty on 11/22. Other than that he is doing well. He denies any dysphagia. His blood count is normal now. Hemoglobin is 16.1. PLAN: The plan is to continue to follow him along. He will be seen by Dr. Suggs, next month. He will undergo an endoscopy this time. He will return in 6 months for a follow-up visit. He will follow-up with his primary as well. I wish him the best of luck with his upcoming kyphoplasty. Thank you, CC: Dr. Gray. Dr. Nikki Acevedo. Dr. Suggs. Dr. Mo. - Time Spent With Patient Time Spent with Patient (in minutes): 25
[2023-11-19 09:24] LABS: Basophils Percent Auto 0.8 % (0-2); Eosinophils Absolute Auto 0.2 X10*3/uL (0.0-0.4); Eosinophils Percent Auto 4.4 % (0-4); Hematocrit 45.7 % (42.0-52.0); Hemoglobin 16.1 g/dl (14.0-18.0); Imm Gran Abs Auto 0.01 X10*3/uL (0.00-0.03); Imm Gran Pct Auto 0.2 % (0.0-0.4); Lymphocytes Percent Auto 21.7 % (20-40); Mean Corpuscular HGB Conc 35.2 g/dl (31.0-36.0); Mean Corpuscular Hemoglobin 32.6 pg (27.0-33.0); Mean Corpuscular Volume 92.5 fL (80.0-98.0); Mean Platelet Volume 9.8 fL (9.4-12.4); Monocytes Absolute Auto 0.4 X10*3/uL (0.1-1.2); Neutrophils Absolute Auto 3.1 x10*3/uL (2.0-8.3); Neutrophils Percent Auto 64.9 % (45-73); Platelet Count 76 X10*3/uL (160-400); Red Blood Count 4.94 X10*6/uL (4.60-5.80); Red Cell Distribution Width 15.1 % (11.0-16.0); White Blood Count 4.8 X10*3/uL (4.8-10.8)
[2023-11-19 09:36] LABS: Alanine Aminotransferase 28 U/L (0-40); Albumin Level 3.5 g/dL (3.5-5.0); Alkaline Phosphatase 98 U/L (39-117); Anion Gap 12 (12-20); Aspartate Amino Transferase 37 U/L (5-37); Bilirubin Total 1.4 mg/dL (0.0-1.0); Blood Urea Nitrogen 14 mg/dL (9-16); Carbon Dioxide 24 mmol/L (22-29); Chloride 110 mmol/L (96-108); Creatinine Clr Calc Pharmacy 89.8; Estimated Glomerular Filt Rate > 60; Glucose Random 242 mg/dL (60-115); Potassium 4.4 mmol/L (3.3-5.1); Sodium 142 mmol/L (135-145); Total Protein 6.8 g/dL (6.5-8.0)
--- NOTE | 2023-11-19 10:04 | MHC.HEMONCMA ---
patient seen today for adenocarcinoma of esophagus, vss, labs, following up with provider in 6 months
--- NOTE | 2024-02-05 15:10 | PM.HEMONCPN ---
Medical Summary - Medical Summary Date of Service: 02/05/24 Chief complaint: Follow-up for: Recurrent carcinoma of the esophagus. Primary Care Provider: Nikhil Gray [facility]- Medical Summary: Diagnosis: Adenocarcinoma of the esophagus, of the lower end. Current Therapy: 1. Combined modality therapy with radiation along with weekly carboplatin and Taxol, had 4 weeks, Completed 08/21/2017. 2. Had disease recurrence, seen at the EG junction on endoscopy on October 27, 2020. Completed re- radiation, 07/04/20. Interval History Interval history: This is a pleasant 63 year-old gentleman, here for a follow-up visit. He had dysphagia symptoms, mostly to solids. Upper endoscopy on 01/18, by Dr. Suggs. This revealed: Esophagus: The distal esophagus showed a 5 cm area of ulceration with masslike effect consistent with possible recurrence of his adenocarcinoma. Biopsies were carefully obtained from the distal esophagus. There were no esophageal varices identified. Stomach: The stomach showed no evidence of masses or ulcers. Retroflexed examination showed no mass lesion extending below the EG junction. Pathology revealed: Superficial fragments of adenocarcinoma, moderately differentiated. He still has ongoing swallowing issues. This is more to solids. He is able to swallow a soft diet including rice and pasta. He has lost weight. He was 220 lb and now down to 185. His energy level is still reasonable. No headache, he gets occasional dizziness. Denies chest pain or trouble breathing. No cough no sputum. He denies abdominal pain nausea vomiting heartburn indigestion. Bowels are working without any gross blood in it. There is no black/dark stool. He still has a good appetite. He has lost weight. PREVIOUS HISTORY: He tells me he has had back pain. This started after he was using a sledgehammer. 4?22: MRI of the spine revealed: 1. Subacute T7 upper endplate impaction fracture with similar approximately 50% height loss and anterior wedging compared to radiograph from 08/24/2023. 2. Marrow signal abnormality throughout the thoracic spinal column as above that be correlated for history of prior radiation therapy with radiation induced fatty marrow signal change in the midthoracic spine likely on a background of diffuse osteopenia. 3. Cirrhotic hepatic morphology and splenomegaly. Soft tissue thickening in the region of the distal esophagus, better characterized on prior PET from 12/03/2017. He actually underwent a kyphoplasty on 11/22 by interventional radiology. INTERIM HISTORY: On 04/14 he was seen in the ER: 61-year-old male with history of type 2 diabetes, HTN, seizures, adenocarcinoma of the esophagus who presents to the ER for evaluation of a left thumb injury, through and through injury with a drill bit. X-ray reviewed and does not appear to have bony involvement. He has normal function of all tendons. No sensory deficit. No active bleeding. The wound was soaked in Betadine, saline, Hydrogen peroxide combination for antiseptic affect. Will prescribe prophylactic antibiotics to prevent infection. Tdap given. Patient counseled on wound care and return precautions. He is stable for discharge home. He was seen by Dr. Suggs on 04/02/22: Upper endoscopy in August showed no evidence of recurrence of his esophageal adenocarcinoma. Gastric polyp biopsy showed polypoid foamy hyperplasia chronic active gastritis and no H pylori. He continues on the Protonix 40 mg. With respect to his liver disease ultrasound earlier this year showed patent tips shunt without focal liver lesion. No varices were noted on endoscopy in August. Radiation changes were seen. Colonoscopy showed a nonbleeding 8 mm avium on the ileocecal valve and hemorrhoids. His anemia has resolved with iron supplementation. No endoscopy was recommended at that time. Previous history: He had fallen over the weekend. They had a yd sale at their home. He just tripped. Since then he had pain in his right knee. He has some abrasions there. He has a hard time walking. l proceeded with an x-ray of the knee on 01/03: Mild osteopenia. No visible acute fracture, dislocation or subluxation seen. He tells me his knee is much better now. He cannot kneel down but he is able to bend it. He had an upper endoscopy on 02/12/[address] Suggs. Did not reveal any residual cancer. He is on a new medication for diabetes. It does appear to be helping. Blood sugars are in the range of 118-120. He is in good spirits. Rest of the review of systems is unremarkable. He tells me he has some blood vessels growth in his eyes. He is under the care of [facility] in [place]. They are monitoring it for now. He denies any major visual complaints. Interim history: He was noted to be rather anemic. He required blood transfusion. He underwent an upper endoscopy and colonoscopy on 09/[address] Suggs. Results: UPPER ENDOSCOPY: Esophagus: The esophagus showed changes consistent with radiation therapy over the lower 1/3 with small areas of petechiae measuring 1-2 mm. There was no evidence of recurrent adenocarcinoma at the EG junction. No biopsies were obtained due to the patient's history of esophageal varices and thrombocytopenia. No varices were seen. Stomach: The stomach showed no evidence of masses or ulcers. There were 2 polyps present at the antrum near the pyloric channel. These had been seen on prior examinations and they were re-biopsied. The largest measured approximately 15 mm x 20 mm. Duodenum: The bulb and second portion were normal. COLONOSCOPY: The terminal ileum was normal. The prep was excellent. There was an 8 mm nonbleeding AVM on the ileocecal valve. No other AVMs were identified. No polyps were seen. Retroflexed examination showed moderate-sized internal hemorrhoids. IMPRESSION: 1. Radiation changes to the lower esophagus. 2. Gastric polyps. 3. Colonic arteriovenous malformation. RECOMMENDATION: 1. Follow up the biopsy results. 2. Repeat colonoscopy is recommended in 10 years for average risk individuals. 3. Continue present therapy. Previous history: He completed re irradiation in May. He tolerated it well for the most part. He did not develop any swallowing difficulty however he did end up with a cold and a cough which lasted about 5 weeks. It has resolved now. He had a stroke several months ago. He went through a course physical therapy. He still has residual right upper extremity weakness. He is trying to stay active. He does yard work at home. He denies any dysphagia or odynophagia. Review of Systems - Constitutional Reports system reviewed and no additional complaints, except as documented, Reports lack of energy, Reports weight loss - Eyes Reports system reviewed and no additional complaints, except as documented - ENT Reports system reviewed and no additional complaints, except as documented - Cardiovascular Reports system reviewed and no additional complaints, except as documented - Respiratory Reports no additional respiratory complaints - Gastrointestinal Reports system reviewed and no additional complaints, except as documented - Genitourinary Genitourinary: Reports no additional male genitourinary complaints - Musculoskeletal Reports system reviewed and no additional complaints, except as documented - Integumentary/Breasts Skin/Breast: Reports no additional skin complaints - Neurologic Reports system reviewed and no additional complaints, except as documented, Reports abnormal gait, Reports focal weakness, Denies frequent falls, Denies weakness - Psychiatric Reports system reviewed and no additional complaints, except as documented - Endocrine Reports no additional endocrine complaints - Hematologic/Lymphatic Reports system reviewed and no additional complaints, except as documented - Allergic/Immunologic Reports system reviewed and no additional complaints, except as documented [facility] Medical History: Medical History (Last Reviewed 02/05/24 @ 15:45 by Maxime Ludwig) Adenocarcinoma of lower esophagus Alcoholic cirrhosis Anemia Constipation Diabetes Elevated ferritin Esophageal varices Esophagus, carcinoma Hepatic cirrhosis Hepatitis C History of blood transfusion History of GI bleed Onset Date: ~2017 Hx of splenomegaly Hyperlipidemia LDL goal <70 Male circumcision Seizure disorder Stroke Thrombocytopenia Type 2 diabetes mellitus with diabetic polyneuropathy Type 2 diabetes mellitus with hyperglycemia Wears dentures Functional capacity: independent ambulation Patient : No Family History: Family History (Last Reviewed 02/05/24 @ 15:45 by Maxime Ludwig) Father No problems noted. Mother Diabetes mellitus Surgical History: Surgical History (Last Reviewed 02/05/24 @ 15:45 by Maxime Ludwig) History of surgery on lower extremity Onset Date: ~2003 Hx of circumcision Hx of colonoscopy Onset Date: 08/2021 Hx of endoscopy Onset Date: 08/2021 S/P transjugular intrahepatic portosystemic shunt Onset Date: ~2017 Social History: Social History (Last Reviewed 02/05/24 @ 15:45 by Maxime Ludwig) Living Situation History: Household Members: Spouse Household Members Other:: Spouse: Antoni Housing: House Are you a primary care transition mgr to a significant other at home: No Do you presently have visiting nurse or other home services: No Alcohol History Details: 1. How often do you have a drink containing alcohol?: a. Never Tobacco History: Patient Tobacco Use Status: Former Tobacco user Tobacco use type: Cigarette Years Smoked: 10 Smoked in Last 30 Days: No Smoking End Date: 11/19/23 e-Cigarette/Vaping Use: Never Used Second Hand Smoke Exposure: No Substance Use History: Use of substances other than those prescribed or required for medical reasons: No Domestic Abuse History: Have you been hit, kicked, punched, or otherwise hurt by someone within the past year? If so, by whom?: No Do you feel safe in your current relationship?: Yes Advance Directives: Advance Directives: No Advance Directives Information Provided: No Advance Directives Date on File: 01/28/21 Homicidal Assessment: Do you have thoughts of harming others: None Do you have a plan to hurt others: No Plan Do you have the means to hurt others: No Nutrition Assessment: Recently lost weight without trying: No Patient : No Occupation Assessmet: service: No Current occupational status: disabled Oncology Screenings - ECOG Performance Status ECOG Performance Status: 0 Home Medications and Allergies Home Medications ?Medication ?Instructions ?Recorded ?Confirmed ?Type cholecalciferol (vitamin D3) 25 25 mcg PO DAILY 04/06/20 02/05/24 History mcg (1,000 unit) tablet (Vitamin D3) lancets 33 gauge #100 ea 08/15/20 02/05/24 History pen needle, diabetic 31 gauge x #1,200 ea 08/15/20 02/05/24 History 11/04 levetiracetam 500 mg tablet 500 mg PO TID 01/17/22 02/05/24 History (Keppra) Allergies Allergy/AdvReac Type Severity Reaction Status Date / Time No Known Allergies Allergy Verified 02/05/24 15:45 Exam Vital signs: Vital Signs Temp 97.1 F 08/26/22 15:19 Pulse 70 11/19/23 09:02 Resp 18 08/26/22 15:19 BP 117/67 11/19/23 09:02 Pulse Ox 99 11/19/23 09:02 O2 Del Method Room Air 11/19/23 09:02 Weight 85.6 kg BMI result Body Mass Index 29.6 - Constitutional Present: no acute distress - Routine HEENT Exam Head: Present: normal inspection Eye: Present: normal appearance ENT: Present: mucous membranes moist - Routine Neck Exam Present: full ROM - Routine Respiratory Exam Present: CTAB - Routine Cardiovascular Exam Cardiovascular: Present: RRR, S1, S2 - Routine Abdominal Exam Present: soft, nontender - Routine Extremities Exam Present: joint swelling, nontender - Routine Back/Spine/Pelvis Exam Back/Spine: Present: full ROM - Routine Skin Exam Present: intact - Routine Neurological Exam Present: alert, oriented X3 - Detailed Neurological Exam: Coma Scale Eye Opening: Spontaneous (4) - Routine Psychiatric Exam Present: normal affect Data - Labs CBC & Chem 7: 02/05/24 15:27 02/05/24 15:27 - Imaging Radiologist's impression: ITS Impressions Knee X-Ray 12/31/21 13:49 IMPRESSION: Mild osteopenia. No visible acute fracture, dislocation or subluxation seen. Assessment and Plan Patient Active problem list reviewed?: Yes (1) Adenocarcinoma of lower esophagus Status: Acute Assessment and plan: This is a pleasant, 59 year-old gentleman with history of Hepatitis C, Esophageal Adenocarcinoma. He completed combined modality therapy with radiation plus chemotherapy, in August of 2017. CT chest with contrast performed 10/22/17 showed wall thickening of the distal thoracic esophagus, enlarged paraesophageal varices, no enlarged hilar or mediastinal lymph nodes, enlarged spleen and mild upper abdominal lymphadenopathy, largest lymph node in the periportal region measuring 1.5x1.3 cm. Also a nonspecific 1 cm lucent lesion in the superior endplate of T7 would whole-body, ? metastasis. Several nonspecific lytic lesions in the thoracic and visualized upper lumbar vertebral bodies questionable for possible metastatic disease. He denies any dysphagia or odynophagia. Routine endoscopy reveals disease recurrence, with a 2 cm mass just below the EG junction. Pathology confirms: Moderately differentiated Adenocarcinoma. A PET scan, was denied. CT scan of the chest from November 24 revealed: 1. No pulmonary nodule, mass or groundglass opacity is seen. 2. There is no thoracic lymphadenopathy. 3. There is are cirrhotic changes of the liver redemonstrated, without focal mass seen. 4. There is interim placement of a portocaval shunt. The splenic and mesenteric veins appear patent. Upper abdominal varices are less pronounced than seen. 5. There is stable wall thickening of the gastroesophageal junction. 6. No abdominopelvic metastasis, free fluid or lymphadenopathy is seen. Unfortunately, he is really not a surgical candidate. He has already had radiation therapy so that is not an option. He underwent an endoscopic ultrasound to evaluate for the thickness of the tumor, and possible adenopathy. This was done on January [address] Elizabet Gilliam. Findings: Endoscopy revealed a 1.5-2 cm GE junction mass, that appeared to be semi pedunculated. Evidence of mild portal hypertensive gastropathy in the stomach. Two small polyps noted in the stomach 1 in the gastric body and other just proximal to the pyloric sphincter. Polyps appeared reactive. Endoscopic ultrasound: Tumor was hypoechoic 1.8 x 1.4 cm, likely T1b, and 0. The MP was intact. Small varices noted in the submucosa. No aortic nor vertebral invasion. Normal celiac takeoff. No obvious lesion in the liver. Normal appearing pancreatic duct. The plan initially was to proceed with photodynamic therapy. That will help to avoid systemic chemotherapy. He has seen Dr. Lucio Mo, at [facility]. His note mentions: Endosonographically, stage T1b. This is a difficult situation. Locally recurrent GE junction adenocarcinoma already subjected to 50 Gy of radiation. He has no regional nor distant metastatic disease. Ideally surgical resection should be done but his comorbidities that too significant to allow for a safe surgery. Endoscopic submucous ectomy still relatively early in the evolution of the technique and since this lesions pans 2.5 cm in longitudinal dimension that may be too much for endoscopic resection. We have to consider other local ablative modalities to take care of this recurrence. He was given a couple of options: 1. Photodynamic therapy. 2. Brachytherapy. He would favor brachy therapy, since his visceral disease is worrisome, in regards to the bleeding from his variceal disease. That would be more of a risk with photodynamic therapy. (he is not in favor of having to hide from light for 4-6 weeks if he undergoes photodynamic therapy.) Overall the safety profile of brachytherapy would be higher than photodynamic therapy. It also has a better track record. I called the Radiation Oncology Department at [facility] to expedite his appointment for brachy therapy there. D/W Radiation therapist at [facility]. They are recommending re-irradiation. I had discussed with Dr. Sarmiento at [facility], to set it up here, for his convenience. His appointment was on April 12. She did discussed the option of endoscopic resection with the surgeon however they were not keen on it on account of his history of varices. He had a PET scan done, on 05/11/2020 at [facility] which revealed: Focal area of distal esophageal wall thickening with mildly increased activity, SUV max of 5.5. No findings suggestive of distal metastatic disease. He was then referred to Dr. Sarmiento. He completed re-irradiation at [facility], few months ago. He had repeat upper endoscopy by Dr. Suggs, on 09/25. This revealed: Esophagus: The esophagus showed changes consistent with his prior radiation therapy. There was a nodular area just below the EG junction with some inflammatory change. This was biopsied. There were no visible esophageal varices or gastric varices. Stomach: The stomach showed no evidence of masses or ulcers. The previously identified gastric polyps were present. They appeared unchanged from his prior examination. Biopsies were obtained from the gastric polyps. Duodenum: The bulb and second portion were normal. 1. Adenocarcinoma of the EG junction, status post biopsy. 2. Gastric polyps. Unfortunately, the biopsy results revealed: Ulcerated cardiac type mucosa with high-grade dysplasia/in Situ adenocarcinoma. No squamous epithelium seen. This could be residual after radiation and may disappear with the tincture of time. However there is no invasive component, for which any medical treatment could be recommended. He had a left CVA with right-sided weakness. He had PT done. He still has residual right upper extremity weakness but otherwise doing well. Denies any GI complaints. Ultrasound of the abdomen from 02/14/21 revealed: Fatty infiltration of the liver. Patent TIPS. Splenomegaly. He had an upper endoscopy on the 02/12/[address] Suggs which revealed: No evidence of recurrent adenocarcinoma at the EG junction. He has pancytopenia likely related to his liver disease and cirrhosis. His blood count had dropped significantly, at his last visit even though he was not very symptomatic. At his visit on 08/15/21, his hemoglobin went down to 7.2. Iron studies: 20/458/4/6. B12 452. Folate 11.2. Concern was for disease recurrence versus another source of GI blood loss. He was given 2 units of packed RBCs. He underwent an upper endoscopy on 09/[address] Suggs. This revealed a findings consistent with radiation esophagitis/gastritis. Pathology revealed: Polypoid foveolar hyperplasia with chronic active gastritis, negative for H pylori, intestinal metaplasia and dysplasia. The colonoscopy was negative. He was advised to take the proton pump inhibitor twice a day and at Carafate however he did not take the Carafate. He was taking oral iron. Hemoglobin from September 13 was 9.6. 01/03, his hemoglobin is 15.7. It was 14.4, in October. This is reassuring. On 12/27, he fell down and injured his right knee. l proceeded with an x-ray of the knee. This did not reveal any fracture. His knee is all better. He injured his back. CT scan of the T-spine from 11/04 revealed: Stable appearance to the moderate T7 vertebral body compression fracture from September 2023 thoracic spine MRI. There is lucency adjacent to the fracture lines and overall increased sclerosis of the vertebral body. Given history of esophageal cancer, possible pathologic fracture should be considered. Increased sclerosis is likely related to postradiation changes. He underwent a kyphoplasty on 11/22. He still has residual pain. He has recently has had dysphagia to solids. Upper endoscopy on 01/18, by Dr. Suggs. This revealed: Esophagus: The distal esophagus showed a 5 cm area of ulceration with masslike effect consistent with possible recurrence of his adenocarcinoma. Biopsies were carefully obtained from the distal esophagus. There were no esophageal varices identified. Stomach: The stomach showed no evidence of masses or ulcers. Retroflexed examination showed no mass lesion extending below the EG junction. Pathology revealed: Superficial fragments of adenocarcinoma, moderately differentiated. His CBC: WBC 6.4, Hemoglobin is 15.2. PLT 90. LFTs are normal. PLAN: The plan is to proceed with restaging workup. Will get a CT scan of the chest abdomen pelvis. His pathology did show PD-L1 positivity with a CPS score of 5. He would be a candidate for pembrolizumab, based therapy. He will return in 2 weeks for a follow-up visit. Thank you, CC: Dr. Gray. Dr. Nikki Acevedo. Dr. Suggs. Dr. Mo. - Time Spent With Patient Time Spent with Patient (in minutes): 25
[2024-02-05 15:34] LABS: Hemoglobin 15.2 g/dl (14.0-18.0); Imm Gran Abs Auto 0.02 X10*3/uL (0.00-0.03); Imm Gran Pct Auto 0.3 % (0.0-0.4); MANUAL DIFF FLAG SCAN; Mean Corpuscular Volume 90.1 fL (80.0-98.0); PLT CLUMP 1; SCAN SMEAR FLAG 1
[2024-02-05 15:36] LABS: Basophils Absolute Auto 0.1 X10*3/uL (0.0-0.2); Basophils Percent Auto 0.9 % (0-2); Eosinophils Absolute Auto 0.3 X10*3/uL (0.0-0.4); Eosinophils Percent Auto 4.6 % (0-4); Hematocrit 41.9 % (42.0-52.0); Lymphocytes Absolute Auto 1.4 X10*3/uL (1.2-4.9); Lymphocytes Percent Auto 21.3 % (20-40); Mean Corpuscular HGB Conc 36.3 g/dl (31.0-36.0); Mean Corpuscular Hemoglobin 32.7 pg (27.0-33.0); Monocytes Absolute Auto 0.5 X10*3/uL (0.1-1.2); Monocytes Percent Auto 7.2 % (2-11); Neutrophils Absolute Auto 4.2 x10*3/uL (2.0-8.3); Neutrophils Percent Auto 65.7 % (45-73); Red Blood Count 4.65 X10*6/uL (4.60-5.80); Red Cell Distribution Width 15.1 % (11.0-16.0)
[2024-02-05 15:43] VITALS: BP 119/74; PULSE 70; O2SAT 97
[2024-02-05 15:56] LABS: Alanine Aminotransferase 25 U/L (0-40); Albumin Level 3.6 g/dL (3.5-5.0); Alkaline Phosphatase 99 U/L (39-117); Anion Gap 12 (12-20); Aspartate Amino Transferase 34 U/L (5-37); Bilirubin Total 1.7 mg/dL (0.0-1.0); Blood Urea Nitrogen 15 mg/dL (9-16); Calcium 9.2 mg/dL (8.4-10.2); Carbon Dioxide 23 mmol/L (22-29); Chloride 111 mmol/L (96-108); Creatinine Clr Calc Pharmacy 90.8; Estimated Glomerular Filt Rate > 60; Glucose Random 197 mg/dL (60-115); Potassium 4.1 mmol/L (3.3-5.1); Sodium 142 mmol/L (135-145); Total Protein 6.9 g/dL (6.5-8.0)
[2024-02-05 16:06] LABS: Platelet Count 90 X10*3/uL (160-400); White Blood Count 6.4 X10*3/uL (4.8-10.8)
[2024-02-05 16:07] LABS: SLIDE REVIEW VERIFIED
--- NOTE | 2024-02-08 08:57 | HO.HEMONCPA ---
Addendum entered by Gaye Mendiola 08/09/24 15:07: PA APPROVED FOR RAMUCIRUMAB J9308, EMEND J1453 AUTH [id number] DOS 08/05/24 - 08/04/25 24 DOSES NO PA NEEDED FOR PACLITAXEL J9267 PER [employer] WEBSITE [email or web address] NEUPOGEN J1442 APPROVED AUTH # [id number] DOS 08/01/24 - 10/29/24 1 DOSE Addendum entered by Gaye Mendiola 08/05/24 15:38: PA APPROVED FOR RAMUCIRUMAB J9308, EMEND J1453 AUTH [id number] DOS 08/05/24 - 08/04/25 24 DOSES NO PA NEEDED FOR PACLITAXEL J9267 PER [employer] WEBSITE [email or web address] Addendum entered by Gaye Mendiola 08/03/24 08:26: PA PENDING FOR RAMUCIRUMAB J9308, EMEND J1453 AND UDENYCA Q5111 AWAITING DECISION FROM [employer] NO PA NEEDED FOR PACLITAXEL J9267 PER [employer] WEBSITE [email or web address] Addendum entered by Gaye Mendiola 07/28/24 10:29: NO PA NEEDED FOR PACLITAXEL J9267 OR CARBOPLATIN J9045 PER [employer] WEBSITE [email or web address] PER DR ANGUIANO NO EMEND BUT WOULD LIKE NEUPOGEN J1442 AWAITING DECISION FROM [employer] Addendum entered by Gaye Mendiola 07/28/24 10:18: NO PA NEEDED FOR PACLITAXEL J9267 OR CARBOPLATIN J9045 PER [employer] WEBSITE [email or web address] PA PENDING FOR EMEND J1453 AWAITING RESPONSE FROM [employer] Addendum entered by Gaye Mendiola 07/11/24 12:05: PA Approved FOR PEMBROLIZUMAB J9271 APPROVED FOR 16 VISITS. AUTH# [id number]. DOS- 02/23/24 to 02/21/25. DOCUMENT SCANNED IN THE CHART. Addendum entered by Abby De La Rosa 02/23/24 09:57: PA PENDING FOR PEMBROLIZUMAB J9271 APPROVED FOR 16 VISITS. AUTH# [id number]. DOS- 02/23/24 to 02/21/25. DOCUMENT SCANNED IN THE CHART. Addendum entered by Gaye Mendiola 02/18/24 15:35: PA PENDING FOR PEMBROLIZUMAB J9271 AWAITING RESPONSE FROM [employer] Addendum entered by Gaye Mendiola 02/18/24 15:35: Approved and read Original Note: PA PENDING FOR CT ABD/PELVIS AND CHEST WITH CONTRAST [id number] AND [id number] AWAITING DECISION FROM [facility]
--- NOTE | 2024-02-26 15:51 | HO.HEMONCSCH ---
Pt had called to cancel scheduled appts for today to have pre-tx lab draw, to meet w/ Dr. Crawford, and to have chemoteach appt to learn about his upcoming 1st tx w/ Pembrolizumab. This nurse called pt 5 times in 2 days, left 2 VMs, both w/ detailed messages asking for CB to confirm that pt remembers he is scheduled to begin Pembrolizumab this 03/01/24 at 10:20. Nurse also included in the message that pt was supposed to have labs drawn for his tx and have instructional information session about his txs today, which will now have to just happen on the same morning of his tx start on 03/01. Nurse left CB#. MARTITA Swartz said she had been able to contact pt yesterday morning to reschedule his f/u appt, but did not discuss his upcoming Pembro start or whether he would be attending.
[2024-03-01 10:25] LABS: MANUAL DIFF FLAG NO
[2024-03-01 10:27] VITALS: BP 123/66; PULSE 74; RESP 18; TEMP 36.6; O2SAT 100; BMI 28.2
[2024-03-01 10:41] LABS: Basophils Percent Auto 0.7 % (0-2); Eosinophils Absolute Auto 0.2 X10*3/uL (0.0-0.4); Hematocrit 41.4 % (42.0-52.0); Imm Gran Abs Auto 0.02 X10*3/uL (0.00-0.03); Imm Gran Pct Auto 0.4 % (0.0-0.4); Lymphocytes Absolute Auto 0.8 X10*3/uL (1.2-4.9); Lymphocytes Percent Auto 15.4 % (20-40); Mean Corpuscular HGB Conc 36.2 g/dl (31.0-36.0); Mean Corpuscular Hemoglobin 32.8 pg (27.0-33.0); Mean Corpuscular Volume 90.6 fL (80.0-98.0); Mean Platelet Volume 9.9 fL (9.4-12.4); Monocytes Absolute Auto 0.5 X10*3/uL (0.1-1.2); Monocytes Percent Auto 8.5 % (2-11); Neutrophils Absolute Auto 3.9 x10*3/uL (2.0-8.3); Red Blood Count 4.57 X10*6/uL (4.60-5.80); Red Cell Distribution Width 14.7 % (11.0-16.0); White Blood Count 5.4 X10*3/uL (4.8-10.8)
[2024-03-01 10:42] LABS: Platelet Count 74 X10*3/uL (160-400)
[2024-03-01 11:09] LABS: Alanine Aminotransferase 20 U/L (0-40); Albumin Level 3.3 g/dL (3.5-5.0); Alkaline Phosphatase 107 U/L (39-117); Anion Gap 9 (12-20); Aspartate Amino Transferase 28 U/L (5-37); Bilirubin Total 1.3 mg/dL (0.0-1.0); Blood Urea Nitrogen 15 mg/dL (9-16); Carbon Dioxide 25 mmol/L (22-29); Chloride 111 mmol/L (96-108); Estimated Glomerular Filt Rate > 60; Glucose Random 256 mg/dL (60-115); Potassium 4.6 mmol/L (3.3-5.1); Sodium 140 mmol/L (135-145); Total Protein 6.3 g/dL (6.5-8.0)
[2024-03-01 11:23] LABS: Carcinoembryonic Antigen < 1.73 ng/mL
[2024-03-01] MEDS: diphenhydrAMINE HCL 50 MG/ML VIAL 25 MG IVPUSH (11:29)
[2024-03-01] MEDS: Acetaminophen 325 MG TABLET 650 MG PO (11:29)
[2024-03-01 12:03] LABS: Thyroid Stimulating Hormone 0.97 uIU/mL (0.32-4.0)
[2024-03-01 12:06] LABS: HBsAGNum1 0.34 S/CO (0.00-0.99); Hepatitis B Surface Antigen Negative (Negative)
[2024-03-01 12:28] LABS: HBS Num1 3.17 mIU/mL (0-7.99); Hepatitis B Core Antibody Nonreactive (Nonreactive); ~Hepatitis B Surface Antibody NONREACTIVE (Nonreactive)
--- NOTE | 2024-03-01 12:51 | MHC.HEMONC ---
Addendum entered by Adrienne Winters RN 03/01/24 12:54: Ondansetron refused, he had taken one at home before coming. Original Note: c1d1 pembrolizumab today. Labs drawn and reviewed. #22 IV placed in right AC. Premeds and pembrolizumab tolerated well. Pt aware of next appt, discharge packet provided.
--- NOTE | 2024-03-22 09:08 | P.PNHO-ONC_ITS ---
Medical Summary - Medical Summary Date of Service: 03/22/24 Chief complaint: Follow-up for: Carcinoma of the esophagus. Primary Care Provider: Nikhil Gray [facility] Medical Summary: Diagnosis: Adenocarcinoma of the esophagus, of the lower end. Current Therapy: 1. Combined modality therapy with radiation along with weekly carboplatin and Taxol, had 4 weeks, Completed 08/21/2017. 2. Had disease recurrence, seen at the EG junction on endoscopy on October 27, 2020. Completed re- radiation, 07/04/20. RECURRENT CARCINOMA OF THE ESOPHAGUS. Started on pembrolizumab on 03/01. Here for cycle 2. Interval History Interval history: This is a pleasant 63 year-old gentleman, here for a follow-up visit, and 2nd dose of pembrolizumab. He tells me he has had ongoing dysphagia however he is able to cut up his food into small pieces and eat. He is still eating chicken and fish. Tonight he is having some ham and vegetables. He is eating fruit and sometimes smoothies. He does not feel tired at rest however after working outside for 3 hours, he gets back pain. He had surgery for the back but unfortunately that did not help. No headache, he gets occasional dizziness. Denies chest pain or trouble breathing. No cough no sputum. He denies abdominal pain nausea vomiting heartburn indigestion. Bowels are working without any gross blood in it. There is no black/dark stool. He still has a good appetite. He has lost weight. INTERIM HISTORY: He had dysphagia symptoms, mostly to solids. Upper endoscopy on 01/18, by Dr. Suggs. This revealed: Esophagus: The distal esophagus showed a 5 cm area of ulceration with masslike effect consistent with possible recurrence of his adenocarcinoma. Biopsies were carefully obtained from the distal esophagus. There were no esophageal varices identified. Stomach: The stomach showed no evidence of masses or ulcers. Retroflexed examination showed no mass lesion extending below the EG junction. Pathology revealed: Superficial fragments of adenocarcinoma, moderately differentiated. He still has ongoing swallowing issues. This is more to solids. He is able to swallow a soft diet including rice and pasta. He has lost weight. He was 220 lb and now down to 185. PREVIOUS HISTORY: He tells me he has had back pain. This started after he was using a sledgehammer. 4?22: MRI of the spine revealed: 1. Subacute T7 upper endplate impaction fracture with similar approximately 50% height loss and anterior wedging compared to radiograph from 08/24/2023. 2. Marrow signal abnormality throughout the thoracic spinal column as above that be correlated for history of prior radiation therapy with radiation induced fatty marrow signal change in the midthoracic spine likely on a background of diffuse osteopenia. 3. Cirrhotic hepatic morphology and splenomegaly. Soft tissue thickening in the region of the distal esophagus, better characterized on prior PET from 12/03/2017. He actually underwent a kyphoplasty on 11/22 by interventional radiology. INTERIM HISTORY: On 04/14 he was seen in the ER: 61-year-old male with history of type 2 diabetes, HTN, seizures, adenocarcinoma of the esophagus who presents to the ER for evaluation of a left thumb injury, through and through injury with a drill bit. X-ray reviewed and does not appear to have bony involvement. He has normal function of all tendons. No sensory deficit. No active bleeding. The wound was soaked in Betadine, saline, Hydrogen peroxide combination for antiseptic affect. Will prescribe prophylactic antibiotics to prevent infection. Tdap given. Patient counseled on wound care and return precautions. He is stable for discharge home. He was seen by Dr. Suggs on 04/02/22: Upper endoscopy in August showed no evidence of recurrence of his esophageal adenocarcinoma. Gastric polyp biopsy showed polypoid foamy hyperplasia chronic active gastritis and no H pylori. He continues on the Protonix 40 mg. With respect to his liver disease ultrasound earlier this year showed patent tips shunt without focal liver lesion. No varices were noted on endoscopy in August. Radiation changes were seen. Colonoscopy showed a nonbleeding 8 mm avium on the ileocecal valve and hemorrhoids. His anemia has resolved with iron supplementation. No endoscopy was recommended at that time. Previous history: He had fallen over the weekend. They had a yd sale at their home. He just tripped. Since then he had pain in his right knee. He has some abrasions there. He has a hard time walking. l proceeded with an x-ray of the knee on 01/03: Mild osteopenia. No visible acute fracture, dislocation or subluxation seen. He tells me his knee is much better now. He cannot kneel down but he is able to bend it. He had an upper endoscopy on 02/12/[address] Suggs. Did not reveal any residual cancer. He is on a new medication for diabetes. It does appear to be helping. Blood sugars are in the range of 118-120. He is in good spirits. Rest of the review of systems is unremarkable. He tells me he has some blood vessels growth in his eyes. He is under the care of laser [facility] centered in [place]. They are monitoring it for now. He denies any major visual complaints. Interim history: He was noted to be rather anemic. He required blood transfusion. He underwent an upper endoscopy and colonoscopy on 09/[address] Sgugs. Results: UPPER ENDOSCOPY: Esophagus: The esophagus showed changes consistent with radiation therapy over the lower 1/3 with small areas of petechiae measuring 1-2 mm. There was no evidence of recurrent adenocarcinoma at the EG junction. No biopsies were obtained due to the patient's history of esophageal varices and thrombocytopenia. No varices were seen. Stomach: The stomach showed no evidence of masses or ulcers. There were 2 polyps present at the antrum near the pyloric channel. These had been seen on prior examinations and they were re-biopsied. The largest measured approximately 15 mm x 20 mm. Duodenum: The bulb and second portion were normal. COLONOSCOPY: The terminal ileum was normal. The prep was excellent. There was an 8 mm nonbleeding AVM on the ileocecal valve. No other AVMs were identified. No polyps were seen. Retroflexed examination showed moderate-sized internal hemorrhoids. IMPRESSION: 1. Radiation changes to the lower esophagus. 2. Gastric polyps. 3. Colonic arteriovenous malformation. RECOMMENDATION: 1. Follow up the biopsy results. 2. Repeat colonoscopy is recommended in 10 years for average risk individuals. 3. Continue present therapy. Previous history: He completed re irradiation in May. He tolerated it well for the most part. He did not develop any swallowing difficulty however he did end up with a cold and a cough which lasted about 5 weeks. It has resolved now. He had a stroke several months ago. He went through a course physical therapy. He still has residual right upper extremity weakness. He is trying to stay active. He does yard work at home. He denies any dysphagia or odynophagia. Review of Systems - Constitutional Reports no additional constitutional complaints, Denies lack of energy, Denies malaise, Reports weight loss - Eyes Reports no additional eye complaints - ENT Reports no additional ear, nose, mouth, and throat complaints - Cardiovascular Reports no additional cardiovascular complaints - Respiratory Reports no additional respiratory complaints - Gastrointestinal Reports no additional gastrointestinal complaints - Genitourinary Genitourinary: Reports no additional male genitourinary complaints - Musculoskeletal Reports no additional musculoskeletal complaints - Integumentary/Breasts Skin/Breast: Reports no additional skin complaints - Neurologic Reports no additional neurologic complaints, Reports abnormal gait, Denies frequent falls, Reports focal weakness, Denies weakness - Psychiatric Reports no additional psychiatric complaints - Endocrine Reports no additional endocrine complaints - Hematologic/Lymphatic Reports no additional hematologic/lymphatic complaints - Allergic/Immunologic Reports no additional allergic/immunologic complaints PMFSH Medical History: Medical History (This Medical Record has been edited. Action required.) Adenocarcinoma of lower esophagus Alcoholic cirrhosis Anemia Constipation Diabetes Elevated ferritin Esophageal varices Esophagus, carcinoma Hepatic cirrhosis Hepatitis C History of blood transfusion History of GI bleed Onset Date: ~2017 Hx of splenomegaly Hyperlipidemia LDL goal <70 Male circumcision Seizure disorder Stroke Thrombocytopenia Type 2 diabetes mellitus with diabetic polyneuropathy Type 2 diabetes mellitus with hyperglycemia Wears dentures Functional capacity: independent ambulation Patient : No Family History: Family History (This Medical Record has been edited. Action required.) Father No problems noted. Mother Diabetes mellitus Surgical History: Surgical History (This Medical Record has been edited. Action required.) History of surgery on lower extremity Onset Date: ~2003 Hx of circumcision Hx of colonoscopy Onset Date: 08/2021 Hx of endoscopy Onset Date: 08/2021 S/P transjugular intrahepatic portosystemic shunt Onset Date: ~2017 Social History: Social History (This Medical Record has been edited. Action required.) Living Situation History: Household Members: Spouse Household Members Other:: Spouse: Antoni Housing: House Are you a primary career services representative to a significant other at home: No Do you presently have visiting nurse or other home services: No Alcohol History Details: 1. How often do you have a drink containing alcohol?: a. Never Tobacco History: Patient Tobacco Use Status: Former Tobacco user Tobacco use type: Cigarette Years Smoked: 10 Smoked in Last 30 Days: No Smoking End Date: 11/19/23 e-Cigarette/Vaping Use: Never Used Second Hand Smoke Exposure: No Substance Use History: Use of substances other than those prescribed or required for medical reasons : No Domestic Abuse History: Have you been hit, kicked, punched, or otherwise hurt by someone within the past year? If so, by whom?: No Do you feel safe in your current relationship?: Yes Advance Directives: Advance Directives: No Advance Directives Information Provided: No Advance Directives Date on File: 01/28/21 Homicidal Assessment: Do you have thoughts of harming others: None Do you have a plan to hurt others: No Plan Do you have the means to hurt others: No Nutrition Assessment: Recently lost weight without trying: No Patient : No Occupation Assessmet: service: No Current occupational status: disabled Oncology Screenings - ECOG Performance Status ECOG Performance Status: 0 Home Medications and Allergies Current Medications: Current Medications Acetaminophen (Acetaminophen 325 Mg Tablet) 650 mg PO ONCE KINGA Stop: 03/22/24 23:59 Diphenhydramine HCl (Diphenhydramine Hcl 50 Mg/Ml Vial) 25 mg IVPUSH ONCE KINGA Stop: 03/22/24 23:59 Heparin Sodium (Porcine) (Heparin Sodium,Porcine Flush 500 Unit/5 Ml Syringe) 500 unit IVFLUSH ONCE KINGA Stop: 03/22/24 23:59 Ondansetron HCl (Ondansetron Odt 8 Mg Tab.Rapdis) 8 mg TRANSLINGU ONCE KINGA Stop: 03/22/24 23:59 Home Medications ?Medication ?Instructions ?Recorded ?Confirmed ?Type cholecalciferol (vitamin D3) 25 25 mcg PO DAILY 04/06/20 02/05/24 History mcg (1,000 unit) tablet (Vitamin D3) lancets 33 gauge #100 ea 08/15/20 02/05/24 History pen needle, diabetic 31 gauge x #1,200 ea 08/15/20 02/05/24 History 11/04 levetiracetam 500 mg tablet 500 mg PO TID 01/17/22 02/05/24 History (Keppra) Allergies Allergy/AdvReac Type Severity Reaction Status Date / Time No Known Allergies Allergy Verified 03/11/24 11:39 Exam Vital signs: Vital Signs Temp 97.9 F 03/01/24 10:27 Pulse 74 03/01/24 10:27 Resp 18 03/01/24 10:27 BP 123/66 03/01/24 10:27 Pulse Ox 100 03/01/24 10:27 O2 Del Method Room Air 03/01/24 10:27 Weight 81.6 kg BMI result Body Mass Index 28.2 - Constitutional Present: no acute distress - Routine HEENT Exam Head: Present: normal inspection Eye: Present: normal appearance ENT: Present: mucous membranes moist - Routine Neck Exam Present: full ROM - Routine Respiratory Exam Present: CTAB - Routine Cardiovascular Exam Cardiovascular: Present: RRR, S1, S2 - Routine Abdominal Exam Present: soft, nontender - Routine Extremities Exam Present: joint swelling, nontender - Routine Back/Spine/Pelvis Exam Back/Spine: Present: full ROM - Routine Skin Exam Present: intact - Routine Neurological Exam Present: alert, oriented X3 - Detailed Neurological Exam: Coma Scale Eye Opening: Spontaneous (4) - Routine Psychiatric Exam Present: normal affect Data - Labs CBC & Chem 7: 03/22/24 09:23 03/22/24 09:23 - Imaging Radiologist's impression: ITS Impressions Knee X-Ray 12/31/21 13:49 IMPRESSION: Mild osteopenia. No visible acute fracture, dislocation or subluxation seen. Assessment and Plan Patient Active problem list reviewed?: Yes (1) Adenocarcinoma of lower esophagus Status: Acute Assessment and plan: This is a pleasant, 59 year-old gentleman with history of Hepatitis C, Esophageal Adenocarcinoma. He completed combined modality therapy with radiation plus chemotherapy, in August of 2017. CT chest with contrast performed 10/22/17 showed wall thickening of the distal thoracic esophagus, enlarged paraesophageal varices, no enlarged hilar or mediastinal lymph nodes, enlarged spleen and mild upper abdominal lymphadenopathy, largest lymph node in the periportal region measuring 1.5x1.3 cm. Also a nonspecific 1 cm lucent lesion in the superior endplate of T7 would whole-body, ? metastasis. Several nonspecific lytic lesions in the thoracic and visualized upper lumbar vertebral bodies questionable for possible metastatic disease. He denies any dysphagia or odynophagia. Routine endoscopy reveals disease recurrence, with a 2 cm mass just below the EG junction. Pathology confirms: Moderately differentiated Adenocarcinoma. A PET scan, was denied. CT scan of the chest from November 24 revealed: 1. No pulmonary nodule, mass or groundglass opacity is seen. 2. There is no thoracic lymphadenopathy. 3. There is are cirrhotic changes of the liver redemonstrated, without focal mass seen. 4. There is interim placement of a portocaval shunt. The splenic and mesenteric veins appear patent. Upper abdominal varices are less pronounced than seen. 5. There is stable wall thickening of the gastroesophageal junction. 6. No abdominopelvic metastasis, free fluid or lymphadenopathy is seen. Unfortunately, he is really not a surgical candidate. He has already had radiation therapy so that is not an option. He underwent an endoscopic ultrasound to evaluate for the thickness of the tumor, and possible adenopathy. This was done on January [address] Elizabet Gilliam. Findings: Endoscopy revealed a 1.5-2 cm GE junction mass, that appeared to be semi pedunculated. Evidence of mild portal hypertensive gastropathy in the stomach. Two small polyps noted in the stomach 1 in the gastric body and other just proximal to the pyloric sphincter. Polyps appeared reactive. Endoscopic ultrasound: Tumor was hypoechoic 1.8 x 1.4 cm, likely T1b, and 0. The MP was intact. Small varices noted in the submucosa. No aortic nor vertebral invasion. Normal celiac takeoff. No obvious lesion in the liver. Normal appearing pancreatic duct. The plan initially was to proceed with photodynamic therapy. That will help to avoid systemic chemotherapy. He has seen Dr. Lucio Mo, at [facility]. His note mentions: Endosonographically, stage T1b. This is a difficult situation. Locally recurrent GE junction adenocarcinoma already subjected to 50 Gy of radiation. He has no regional nor distant metastatic disease. Ideally surgical resection should be done but his comorbidities that too significant to allow for a safe surgery. Endoscopic submucous ectomy still relatively early in the evolution of the technique and since this lesions pans 2.5 cm in longitudinal dimension that may be too much for endoscopic resection. We have to consider other local ablative modalities to take care of this recurrence. He was given a couple of options: 1. Photodynamic therapy. 2. Brachytherapy. He would favor brachy therapy, since his visceral disease is worrisome, in regards to the bleeding from his variceal disease. That would be more of a risk with photodynamic therapy. (he is not in favor of having to hide from light for 4-6 weeks if he undergoes photodynamic therapy.) Overall the safety profile of brachytherapy would be higher than photodynamic therapy. It also has a better track record. I called the Radiation Oncology Department at [facility] to expedite his appointment for brachy therapy there. D/W Radiation therapist at [facility]. They are recommending re-irradiation. I had discussed with Dr. Sarmiento at [facility], to set it up here, for his convenience. His appointment was on April 12. She did discussed the option of endoscopic resection with the surgeon however they were not keen on it on account of his history of varices. He had a PET scan done, on 05/11/2020 at [facility] which revealed: Focal area of distal esophageal wall thickening with mildly increased activity, SUV max of 5.5. No findings suggestive of distal metastatic disease. He was then referred to Dr. Sarmiento. He completed re-irradiation at [facility], few months ago. He had repeat upper endoscopy by Dr. Suggs, on 09/25. This revealed: Esophagus: The esophagus showed changes consistent with his prior radiation therapy. There was a nodular area just below the EG junction with some inflammatory change. This was biopsied. There were no visible esophageal varices or gastric varices. Stomach: The stomach showed no evidence of masses or ulcers. The previously identified gastric polyps were present. They appeared unchanged from his prior examination. Biopsies were obtained from the gastric polyps. Duodenum: The bulb and second portion were normal. 1. Adenocarcinoma of the EG junction, status post biopsy. 2. Gastric polyps. Unfortunately, the biopsy results revealed: Ulcerated cardiac type mucosa with high-grade dysplasia/in Situ adenocarcinoma. No squamous epithelium seen. This could be residual after radiation and may disappear with the tincture of time. However there is no invasive component, for which any medical treatment could be recommended. He had a left CVA with right-sided weakness. He had PT done. He still has residual right upper extremity weakness but otherwise doing well. Denies any GI complaints. Ultrasound of the abdomen from 02/14/21 revealed: Fatty infiltration of the liver. Patent TIPS. Splenomegaly. He had an upper endoscopy on the 02/12/[address] Suggs which revealed: No evidence of recurrent adenocarcinoma at the EG junction. He has pancytopenia likely related to his liver disease and cirrhosis. His blood count had dropped significantly, at his last visit even though he was not very symptomatic. At his visit on 08/15/21, his hemoglobin went down to 7.2. Iron studies: 20/458/4/6. B12 452. Folate 11.2. Concern was for disease recurrence versus another source of GI blood loss. He was given 2 units of packed RBCs. He underwent an upper endoscopy on 09/[address] Suggs. This revealed a findings consistent with radiation esophagitis/gastritis. Pathology revealed: Polypoid foveolar hyperplasia with chronic active gastritis, negative for H pylori, intestinal metaplasia and dysplasia. The colonoscopy was negative. He was advised to take the proton pump inhibitor twice a day and at Carafate however he did not take the Carafate. He was taking oral iron. Hemoglobin from September 13 was 9.6. 01/03, his hemoglobin is 15.7. It was 14.4, in October. This is reassuring. On 12/27, he fell down and injured his right knee. l proceeded with an x-ray of the knee. This did not reveal any fracture. His knee is all better. He injured his back. CT scan of the T-spine from 11/04 revealed: Stable appearance to the moderate T7 vertebral body compression fracture from September 2023 thoracic spine MRI. There is lucency adjacent to the fracture lines and overall increased sclerosis of the vertebral body. Given history of esophageal cancer, possible pathologic fracture should be considered. Increased sclerosis is likely related to postradiation changes. He underwent a kyphoplasty on 11/22. He still has residual pain. He has recently has had dysphagia to solids. Upper endoscopy on 01/18, by Dr. Suggs. This revealed: Esophagus: The distal esophagus showed a 5 cm area of ulceration with masslike effect consistent with possible recurrence of his adenocarcinoma. Biopsies were carefully obtained from the distal esophagus. There were no esophageal varices identified. Stomach: The stomach showed no evidence of masses or ulcers. Retroflexed examination showed no mass lesion extending below the EG junction. Pathology revealed: Superficial fragments of adenocarcinoma, moderately differentiated. His CBC: WBC 6.4, Hemoglobin is 15.2. PLT 90. LFTs are normal. He had a CT scan of the chest abdomen pelvis on 02/16, which revealed: 1. Marked thickening of the distal esophagus beginning below the level of the itzel down to the GE junction suspicious for recurrent esophageal carcinoma. 2. No evidence of metastatic disease in the chest, abdomen or pelvis. 3. Cirrhotic liver with patent TIPS and splenomegaly. His pathology did show PD-L1 positivity with a CPS score of 5. He was deemed a candidate for pembrolizumab, based therapy. He was started on it, on 03/01. He is here for dose #2. He tolerated the 1st cycle well. I was concerned if he may need a G-tube placement. Reviewing his weight he has lost 5 lb since November. Over the past couple of days he has actually noted an improvement in his swallowing. Hopefully that is a good sign. PLAN: He will continue on the pembrolizumab every other week. Will monitor his swallowing function. He was evaluated by handy worker and was given some tips. He will return in 2 weeks for a follow-up visit. Thank you, CC: Dr. Gray. Dr. Nikki Acevedo. Dr. Suggs. Dr. Mo. - Time Spent With Patient Time Spent with Patient (in minutes): 25
[2024-03-22 09:24] VITALS: BP 133/73; PULSE 74; RESP 18; TEMP 36.3; O2SAT 99; BMI 27.9
[2024-03-22 09:25] LABS: MANUAL DIFF FLAG NO
[2024-03-22 09:39] LABS: Basophils Percent Auto 0.9 % (0-2); Eosinophils Absolute Auto 0.2 X10*3/uL (0.0-0.4); Eosinophils Percent Auto 3.4 % (0-4); Hematocrit 43.8 % (42.0-52.0); Hemoglobin 15.4 g/dl (14.0-18.0); Imm Gran Abs Auto 0.01 X10*3/uL (0.00-0.03); Imm Gran Pct Auto 0.2 % (0.0-0.4); Lymphocytes Absolute Auto 0.8 X10*3/uL (1.2-4.9); Lymphocytes Percent Auto 16.8 % (20-40); Mean Corpuscular HGB Conc 35.2 g/dl (31.0-36.0); Mean Corpuscular Hemoglobin 32.5 pg (27.0-33.0); Mean Corpuscular Volume 92.4 fL (80.0-98.0); Mean Platelet Volume 9.7 fL (9.4-12.4); Monocytes Absolute Auto 0.3 X10*3/uL (0.1-1.2); Monocytes Percent Auto 7.1 % (2-11); Neutrophils Absolute Auto 3.3 x10*3/uL (2.0-8.3); Neutrophils Percent Auto 71.6 % (45-73); Platelet Count 64 X10*3/uL (160-400); Red Blood Count 4.74 X10*6/uL (4.60-5.80); Red Cell Distribution Width 14.2 % (11.0-16.0); White Blood Count 4.6 X10*3/uL (4.8-10.8)
[2024-03-22 09:51] LABS: Alanine Aminotransferase 27 U/L (0-40); Albumin Level 3.4 g/dL (3.5-5.0); Alkaline Phosphatase 101 U/L (39-117); Anion Gap 10 (12-20); Aspartate Amino Transferase 35 U/L (5-37); Bilirubin Total 1.3 mg/dL (0.0-1.0); Blood Urea Nitrogen 16 mg/dL (9-16); Calcium 9.3 mg/dL (8.4-10.2); Carbon Dioxide 26 mmol/L (22-29); Chloride 112 mmol/L (96-108); Estimated Glomerular Filt Rate > 60; Glucose Random 251 mg/dL (60-115); Potassium 4.6 mmol/L (3.3-5.1); Sodium 143 mmol/L (135-145); Total Protein 6.7 g/dL (6.5-8.0)
[2024-03-22 10:13] LABS: HBS Num1 0.82 mIU/mL (0-7.99); HBc Num1 0.09 S/CO (0.00-0.79); HBsAGNum1 0.33 S/CO (0.00-0.99); Hepatitis B Core Antibody Nonreactive (Nonreactive); Hepatitis B Surface Antigen Negative (Negative); ~Hepatitis B Surface Antibody NONREACTIVE (Nonreactive)
[2024-03-22] MEDS: Ondansetron ODT 8 MG TAB.RAPDIS TRANSLINGU (10:17)
[2024-03-22] MEDS: Acetaminophen 325 MG TABLET 650 MG PO (10:17)
[2024-03-22] MEDS: diphenhydrAMINE HCL 50 MG/ML VIAL 25 MG IVPUSH (10:18)
--- NOTE | 2024-03-22 11:58 | MHC.HEMONCSW ---
This medical technical writer met with Tj and nurse Catalina to discuss nutrition with patient. Patient has lost five pounds in a few months, and Dr. Jimenez concerned about nutrition and food access. This medical technical writer inquired into patient's food access. He reported that he receives SNAP benefits and that he and his utilize a food pantry when the need to. He reports that he has enough access to the food that is good for him to eat. He requires food to be on the softer side, and to be ground up or cut into tiny pieces to aid in swallowing. Patient reported that his weight loss is due to having a decreased appetite while in treatment.
[2024-04-12 10:27] VITALS: BP 117/65; PULSE 77; RESP 18; TEMP 36.2; O2SAT 100; BMI 27.7
[2024-04-12 10:31] LABS: MANUAL DIFF FLAG NO
[2024-04-12 10:38] LABS: Basophils Percent Auto 0.6 % (0-2); Eosinophils Absolute Auto 0.2 X10*3/uL (0.0-0.4); Eosinophils Percent Auto 3.4 % (0-4); Hematocrit 42.1 % (42.0-52.0); Hemoglobin 15.3 g/dl (14.0-18.0); Imm Gran Abs Auto 0.01 X10*3/uL (0.00-0.03); Imm Gran Pct Auto 0.2 % (0.0-0.4); Lymphocytes Absolute Auto 0.8 X10*3/uL (1.2-4.9); Lymphocytes Percent Auto 16.6 % (20-40); Mean Corpuscular HGB Conc 36.3 g/dl (31.0-36.0); Mean Corpuscular Hemoglobin 32.3 pg (27.0-33.0); Mean Platelet Volume 9.7 fL (9.4-12.4); Monocytes Absolute Auto 0.3 X10*3/uL (0.1-1.2); Monocytes Percent Auto 6.6 % (2-11); Neutrophils Absolute Auto 3.6 x10*3/uL (2.0-8.3); Neutrophils Percent Auto 72.6 % (45-73); Platelet Count 78 X10*3/uL (160-400); Red Blood Count 4.73 X10*6/uL (4.60-5.80); Red Cell Distribution Width 14.6 % (11.0-16.0)
[2024-04-12 10:52] LABS: Alanine Aminotransferase 33 U/L (0-40); Albumin Level 3.6 g/dL (3.5-5.0); Alkaline Phosphatase 100 U/L (39-117); Anion Gap 9 (12-20); Aspartate Amino Transferase 43 U/L (5-37); Bilirubin Total 1.6 mg/dL (0.0-1.0); Blood Urea Nitrogen 17 mg/dL (9-16); Calcium 9.1 mg/dL (8.4-10.2); Carbon Dioxide 26 mmol/L (22-29); Chloride 109 mmol/L (96-108); Creatinine Clr Calc Pharmacy 91.2; Estimated Glomerular Filt Rate > 60; Glucose Random 257 mg/dL (60-115); Potassium 4.4 mmol/L (3.3-5.1); Sodium 140 mmol/L (135-145); Total Protein 6.7 g/dL (6.5-8.0)
[2024-04-12 11:13] LABS: HBc Num1 0.17 S/CO (0.00-0.79); HBsAGNum1 0.36 S/CO (0.00-0.99); Hepatitis B Core Antibody Nonreactive (Nonreactive); Hepatitis B Surface Antigen Negative (Negative); ~Hepatitis B Surface Antibody NONREACTIVE (Nonreactive)
[2024-04-12] MEDS: diphenhydrAMINE HCL 50 MG/ML VIAL 25 MG IVPUSH (11:59)
[2024-04-12] MEDS: Acetaminophen 325 MG TABLET 650 MG PO (12:06)
--- NOTE | 2024-04-12 15:35 | MHC.HEMONC ---
Here for C3 Pembro. Looks and feels well. Labs drawn. IV started left forearm with good blood return noted. Premeds given as ordered, except pt refused zofran. He states he doesn't like the taste of it, and he denies nausea. He did have lunch, and c/o pain after due to the food not going down good. Dr Crawford aware. Pt encouraged to ambulate after eating. He states he will go to , but is feeling better and pain is subsiding. Treatment done and tolerated well. IV removed with no redness or swelling at the site. Departure packet given with calendar for next appointment. Pt brought to front via wheelchair.
[2024-05-03 10:15] VITALS: BP 118/63; PULSE 76; RESP 18; TEMP 36.1; O2SAT 99; BMI 27.5
[2024-05-03 10:41] LABS: MANUAL DIFF FLAG NO
[2024-05-03 10:47] LABS: Basophils Percent Auto 0.7 % (0-2); Eosinophils Absolute Auto 0.2 X10*3/uL (0.0-0.4); Eosinophils Percent Auto 2.8 % (0-4); Hematocrit 40.5 % (42.0-52.0); Hemoglobin 14.5 g/dl (14.0-18.0); Imm Gran Abs Auto 0.02 X10*3/uL (0.00-0.03); Imm Gran Pct Auto 0.3 % (0.0-0.4); Lymphocytes Percent Auto 15.7 % (20-40); Mean Corpuscular HGB Conc 35.8 g/dl (31.0-36.0); Mean Corpuscular Hemoglobin 32.4 pg (27.0-33.0); Mean Corpuscular Volume 90.6 fL (80.0-98.0); Mean Platelet Volume 9.8 fL (9.4-12.4); Monocytes Absolute Auto 0.5 X10*3/uL (0.1-1.2); Monocytes Percent Auto 8.4 % (2-11); Neutrophils Absolute Auto 4.4 x10*3/uL (2.0-8.3); Neutrophils Percent Auto 72.1 % (45-73); Platelet Count 65 X10*3/uL (160-400); Red Blood Count 4.47 X10*6/uL (4.60-5.80); Red Cell Distribution Width 15.2 % (11.0-16.0); White Blood Count 6.1 X10*3/uL (4.8-10.8)
[2024-05-03 11:13] LABS: Alanine Aminotransferase 22 U/L (0-40); Albumin Level 3.2 g/dL (3.5-5.0); Alkaline Phosphatase 82 U/L (39-117); Anion Gap 12 (12-20); Aspartate Amino Transferase 33 U/L (5-37); Bilirubin Total 1.7 mg/dL (0.0-1.0); Blood Urea Nitrogen 15 mg/dL (9-16); Calcium 9.1 mg/dL (8.4-10.2); Carbon Dioxide 22 mmol/L (22-29); Chloride 110 mmol/L (96-108); Creatinine Clr Calc Pharmacy 100.6; Estimated Glomerular Filt Rate > 60; Glucose Random 227 mg/dL (60-115); Potassium 4.1 mmol/L (3.3-5.1); Sodium 140 mmol/L (135-145); Total Protein 6.1 g/dL (6.5-8.0)
[2024-05-03 11:21] LABS: HBc Num1 0.22 S/CO (0.00-0.79); Hepatitis B Core Antibody Nonreactive (Nonreactive); Hepatitis B Surface Antigen Negative (Negative); ~Hepatitis B Surface Antibody NONREACTIVE (Nonreactive)
--- NOTE | 2024-05-03 11:34 | HE.PHANOTE ---
re liver function and keytruda Patient has liver cirrhosis so t bili trends on the higher side as his baseline. Dr Crawford is aware of this and ok to treat with elevated bilirubin.
[2024-05-03] MEDS: diphenhydrAMINE HCL 50 MG/ML VIAL 25 MG IVPUSH (11:43)
[2024-05-03] MEDS: Acetaminophen 325 MG TABLET 650 MG PO (11:43)
--- NOTE | 2024-05-03 13:09 | PM.HEMONCPN ---
Medical Summary - Medical Summary Date of Service: 05/03/24 Chief complaint: Follow-up for: Carcinoma of the esophagus. Primary Care Provider: Nikhil Gray [facility] Medical Summary: Diagnosis: Adenocarcinoma of the esophagus, of the lower end. Current Therapy: 1. Combined modality therapy with radiation along with weekly carboplatin and Taxol, had 4 weeks, Completed 08/21/2017. 2. Had disease recurrence, seen at the EG junction on endoscopy on October 27, 2020. Completed re- radiation, 07/04/20. RECURRENT CARCINOMA OF THE ESOPHAGUS. Started on pembrolizumab on 03/01. Here for cycle 4. Interval History Interval history: This is a pleasant 63 year-old gentleman, here for a follow-up visit, and 4th dose of pembrolizumab. He has not noticed any significant change in his difficulty swallowing. He is able to cut up his food into small pieces and that is how he eats. He is still eating chicken and fish. He is eating ice cream, fruit and sometimes smoothies. He does not feel tired at rest however after working outside for 3 hours, he gets back pain. He had surgery for the back but that did not help. No headache, he gets occasional dizziness. Denies chest pain or trouble breathing. No cough no sputum. He denies abdominal pain nausea vomiting heartburn indigestion. Bowels are working without any gross blood in it. There is no black/dark stool. He still has a good appetite. He has not lost much weight. INTERIM HISTORY: He had dysphagia symptoms, mostly to solids. Upper endoscopy on 01/18, by Dr. Suggs. This revealed: Esophagus: The distal esophagus showed a 5 cm area of ulceration with masslike effect consistent with possible recurrence of his adenocarcinoma. Biopsies were carefully obtained from the distal esophagus. There were no esophageal varices identified. Stomach: The stomach showed no evidence of masses or ulcers. Retroflexed examination showed no mass lesion extending below the EG junction. Pathology revealed: Superficial fragments of adenocarcinoma, moderately differentiated. He still has ongoing swallowing issues. This is more to solids. He is able to swallow a soft diet including rice and pasta. He has lost weight. He was 220 lb and now down to 185. PREVIOUS HISTORY: He tells me he has had back pain. This started after he was using a sledgehammer. 4?22: MRI of the spine revealed: 1. Subacute T7 upper endplate impaction fracture with similar approximately 50% height loss and anterior wedging compared to radiograph from 08/24/2023. 2. Marrow signal abnormality throughout the thoracic spinal column as above that be correlated for history of prior radiation therapy with radiation induced fatty marrow signal change in the midthoracic spine likely on a background of diffuse osteopenia. 3. Cirrhotic hepatic morphology and splenomegaly. Soft tissue thickening in the region of the distal esophagus, better characterized on prior PET from 12/03/2017. He actually underwent a kyphoplasty on 11/22 by interventional radiology. INTERIM HISTORY: On 04/14 he was seen in the ER: 61-year-old male with history of type 2 diabetes, HTN, seizures, adenocarcinoma of the esophagus who presents to the ER for evaluation of a left thumb injury, through and through injury with a drill bit. X-ray reviewed and does not appear to have bony involvement. He has normal function of all tendons. No sensory deficit. No active bleeding. The wound was soaked in Betadine, saline, Hydrogen peroxide combination for antiseptic affect. Will prescribe prophylactic antibiotics to prevent infection. Tdap given. Patient counseled on wound care and return precautions. He is stable for discharge home. He was seen by Dr. Suggs on 04/02/22: Upper endoscopy in August showed no evidence of recurrence of his esophageal adenocarcinoma. Gastric polyp biopsy showed polypoid foamy hyperplasia chronic active gastritis and no H pylori. He continues on the Protonix 40 mg. With respect to his liver disease ultrasound earlier this year showed patent tips shunt without focal liver lesion. No varices were noted on endoscopy in August. Radiation changes were seen. Colonoscopy showed a nonbleeding 8 mm avium on the ileocecal valve and hemorrhoids. His anemia has resolved with iron supplementation. No endoscopy was recommended at that time. Previous history: He had fallen over the weekend. They had a yd sale at their home. He just tripped. Since then he had pain in his right knee. He has some abrasions there. He has a hard time walking. l proceeded with an x-ray of the knee on 01/03: Mild osteopenia. No visible acute fracture, dislocation or subluxation seen. He tells me his knee is much better now. He cannot kneel down but he is able to bend it. He had an upper endoscopy on 02/12/[address] Suggs. Did not reveal any residual cancer. He is on a new medication for diabetes. It does appear to be helping. Blood sugars are in the range of 118-120. He is in good spirits. Rest of the review of systems is unremarkable. He tells me he has some blood vessels growth in his eyes. He is under the care of laser I centered in [place]. They are monitoring it for now. He denies any major visual complaints. Interim history: He was noted to be rather anemic. He required blood transfusion. He underwent an upper endoscopy and colonoscopy on 09/[address] Suggs. Results: UPPER ENDOSCOPY: Esophagus: The esophagus showed changes consistent with radiation therapy over the lower 1/3 with small areas of petechiae measuring 1-2 mm. There was no evidence of recurrent adenocarcinoma at the EG junction. No biopsies were obtained due to the patient's history of esophageal varices and thrombocytopenia. No varices were seen. Stomach: The stomach showed no evidence of masses or ulcers. There were 2 polyps present at the antrum near the pyloric channel. These had been seen on prior examinations and they were re-biopsied. The largest measured approximately 15 mm x 20 mm. Duodenum: The bulb and second portion were normal. COLONOSCOPY: The terminal ileum was normal. The prep was excellent. There was an 8 mm nonbleeding AVM on the ileocecal valve. No other AVMs were identified. No polyps were seen. Retroflexed examination showed moderate-sized internal hemorrhoids. IMPRESSION: 1. Radiation changes to the lower esophagus. 2. Gastric polyps. 3. Colonic arteriovenous malformation. RECOMMENDATION: 1. Follow up the biopsy results. 2. Repeat colonoscopy is recommended in 10 years for average risk individuals. 3. Continue present therapy. Previous history: He completed re irradiation in May. He tolerated it well for the most part. He did not develop any swallowing difficulty however he did end up with a cold and a cough which lasted about 5 weeks. It has resolved now. He had a stroke several months ago. He went through a course physical therapy. He still has residual right upper extremity weakness. He is trying to stay active. He does yard work at home. He denies any dysphagia or odynophagia. Review of Systems - Constitutional Reports system reviewed and no additional complaints, except as documented, Reports lack of energy, Reports malaise, Denies weight loss - Eyes Reports system reviewed and no additional complaints, except as documented - ENT Reports system reviewed and no additional complaints, except as documented - Cardiovascular Reports system reviewed and no additional complaints, except as documented - Respiratory Reports no additional respiratory complaints - Gastrointestinal Reports system reviewed and no additional complaints, except as documented, Reports difficulty swallowing - Genitourinary Genitourinary: Reports no additional male genitourinary complaints - Musculoskeletal Reports system reviewed and no additional complaints, except as documented - Integumentary/Breasts Skin/Breast: Reports no additional skin complaints - Neurologic Reports system reviewed and no additional complaints, except as documented, Reports abnormal gait, Reports focal weakness, Denies frequent falls, Denies weakness - Psychiatric Reports system reviewed and no additional complaints, except as documented - Endocrine Reports no additional endocrine complaints - Hematologic/Lymphatic Reports system reviewed and no additional complaints, except as documented - Allergic/Immunologic Reports system reviewed and no additional complaints, except as documented PMFSH Medical History: Medical History (Last Reviewed 03/29/24 @ 17:35 by MOLLY Whitehead) Adenocarcinoma of lower esophagus Alcoholic cirrhosis Anemia Constipation Diabetes Elevated ferritin Esophageal varices Esophagus, carcinoma Hepatic cirrhosis Hepatitis C History of blood transfusion History of GI bleed Onset Date: ~2017 Hx of splenomegaly Hyperlipidemia LDL goal <70 Male circumcision Seizure disorder Stroke Thrombocytopenia Type 2 diabetes mellitus with diabetic polyneuropathy Type 2 diabetes mellitus with hyperglycemia Wears dentures Functional capacity: independent ambulation Patient : No Family History: Family History (Last Reviewed 03/29/24 @ 17:35 by MOLLY Whitehead) Father No problems noted. Mother Diabetes mellitus Surgical History: Surgical History (Last Reviewed 03/29/24 @ 17:35 by MOLLY Whitehead) History of surgery on lower extremity Onset Date: ~2003 Hx of circumcision Hx of colonoscopy Onset Date: 08/2021 Hx of endoscopy Onset Date: 08/2021 S/P transjugular intrahepatic portosystemic shunt Onset Date: ~2017 Social History: Social History (Last Reviewed 03/29/24 @ 17:35 by MOLLY Whitehead) Living Situation History: Household Members: Spouse Household Members Other:: Spouse: Antoni Housing: House Are you a primary childcare center director to a significant other at home: No Do you presently have visiting nurse or other home services: No Alcohol History Details: 1. How often do you have a drink containing alcohol?: a. Never Tobacco History: Patient Tobacco Use Status: Former Tobacco user Tobacco use type: Cigarette Years Smoked: 10 Smoked in Last 30 Days: No Smoking End Date: 11/19/23 e-Cigarette/Vaping Use: Never Used Second Hand Smoke Exposure: No Substance Use History: Use of substances other than those prescribed or required for medical reasons: No Domestic Abuse History: Have you been hit, kicked, punched, or otherwise hurt by someone within the past year? If so, by whom?: No Do you feel safe in your current relationship?: Yes Advance Directives: Advance Directives: No Advance Directives Information Provided: No Advance Directives Date on File: 01/28/21 Homicidal Assessment: Do you have thoughts of harming others: None Do you have a plan to hurt others: No Plan Do you have the means to hurt others: No Nutrition Assessment: Recently lost weight without trying: No Patient : No Occupation Assessmet: service: No Current occupational status: disabled Oncology Screenings - ECOG Performance Status ECOG Performance Status: 0 Home Medications and Allergies Current Medications: Current Medications Acetaminophen (Acetaminophen 325 Mg Tablet) 650 mg PO ONCE KINGA Stop: 05/03/24 23:59 Last Admin: 05/03/24 11:43 Dose: 650 mg Diphenhydramine HCl (Diphenhydramine Hcl 50 Mg/Ml Vial) 25 mg IVPUSH ONCE KINGA Stop: 05/03/24 23:59 Last Admin: 05/03/24 11:43 Dose: 25 mg Heparin Sodium (Porcine) (Heparin Sodium,Porcine Flush 500 Unit/5 Ml Syringe) 500 unit IVFLUSH ONCE KINGA Stop: 05/03/24 23:59 Pembrolizumab 200 mg/ Sodium (Chloride) 58 mls @ 116 mls/hr IV ONCE KINGA Stop: 05/03/24 23:59 Last Admin: 05/03/24 12:24 Dose: 116 mls/hr Ondansetron HCl (Ondansetron Odt 8 Mg Tab.Rapdis) 8 mg TRANSLINGU ONCE KINGA Stop: 05/03/24 23:59 Home Medications ?Medication ?Instructions ?Recorded ?Confirmed ?Type cholecalciferol (vitamin D3) 25 25 mcg PO DAILY 04/06/20 03/29/24 History mcg (1,000 unit) tablet (Vitamin D3) lancets 33 gauge #100 ea 08/15/20 03/29/24 History pen needle, diabetic 31 gauge x #1,200 ea 08/15/20 03/29/24 History / levetiracetam 500 mg tablet 500 mg PO TID 01/17/22 03/29/24 History (Keppra) Allergies Allergy/AdvReac Type Severity Reaction Status Date / Time No Known Allergies Allergy Verified 03/29/24 17:38 Exam Vital signs: Vital Signs Temp 97 F 05/03/24 10:15 Pulse 76 05/03/24 10:15 Resp 18 05/03/24 10:15 BP 118/63 05/03/24 10:15 Pulse Ox 99 05/03/24 10:15 O2 Del Method Room Air 05/03/24 10:15 Intake & Output 05/02/24 05/03/24 05/03/24 18:59 06:59 18:59 Other: Weight 79.6 kg Weight in Grams 10027 Weight 79.6 kg BMI result Body Mass Index 27.5 - Constitutional Present: no acute distress - Routine HEENT Exam Head: Present: normal inspection Eye: Present: normal appearance ENT: Present: mucous membranes moist - Routine Neck Exam Present: full ROM - Routine Respiratory Exam Present: CTAB - Routine Cardiovascular Exam Cardiovascular: Present: RRR, S1, S2 - Routine Abdominal Exam Present: soft, nontender - Routine Extremities Exam Present: joint swelling, nontender - Routine Back/Spine/Pelvis Exam Back/Spine: Present: full ROM - Routine Skin Exam Present: intact - Routine Neurological Exam Present: alert, oriented X3 - Detailed Neurological Exam: Coma Scale Eye Opening: Spontaneous (4) - Routine Psychiatric Exam Present: normal affect Data - Labs CBC & Chem 7: 05/03/24 10:37 05/03/24 10:37 - Imaging Radiologist's impression: ITS Impressions Knee X-Ray 12/31/21 13:49 IMPRESSION: Mild osteopenia. No visible acute fracture, dislocation or subluxation seen. Assessment and Plan Patient Active problem list reviewed?: Yes (1) Adenocarcinoma of lower esophagus Status: Acute Assessment and plan: This is a pleasant, 59 year-old gentleman with history of Hepatitis C, Esophageal Adenocarcinoma. He completed combined modality therapy with radiation plus chemotherapy, in August of 2017. CT chest with contrast performed 10/22/17 showed wall thickening of the distal thoracic esophagus, enlarged paraesophageal varices, no enlarged hilar or mediastinal lymph nodes, enlarged spleen and mild upper abdominal lymphadenopathy, largest lymph node in the periportal region measuring 1.5x1.3 cm. Also a nonspecific 1 cm lucent lesion in the superior endplate of T7 would whole-body, ? metastasis. Several nonspecific lytic lesions in the thoracic and visualized upper lumbar vertebral bodies questionable for possible metastatic disease. He denies any dysphagia or odynophagia. Routine endoscopy reveals disease recurrence, with a 2 cm mass just below the EG junction. Pathology confirms: Moderately differentiated Adenocarcinoma. A PET scan, was denied. CT scan of the chest from November 24 revealed: 1. No pulmonary nodule, mass or groundglass opacity is seen. 2. There is no thoracic lymphadenopathy. 3. There is are cirrhotic changes of the liver redemonstrated, without focal mass seen. 4. There is interim placement of a portocaval shunt. The splenic and mesenteric veins appear patent. Upper abdominal varices are less pronounced than seen. 5. There is stable wall thickening of the gastroesophageal junction. 6. No abdominopelvic metastasis, free fluid or lymphadenopathy is seen. Unfortunately, he is really not a surgical candidate. He has already had radiation therapy so that is not an option. He underwent an endoscopic ultrasound to evaluate for the thickness of the tumor, and possible adenopathy. This was done on January [address] Elizabet Gilliam. Findings: Endoscopy revealed a 1.5-2 cm GE junction mass, that appeared to be semi pedunculated. Evidence of mild portal hypertensive gastropathy in the stomach. Two small polyps noted in the stomach 1 in the gastric body and other just proximal to the pyloric sphincter. Polyps appeared reactive. Endoscopic ultrasound: Tumor was hypoechoic 1.8 x 1.4 cm, likely T1b, and 0. The MP was intact. Small varices noted in the submucosa. No aortic nor vertebral invasion. Normal celiac takeoff. No obvious lesion in the liver. Normal appearing pancreatic duct. The plan initially was to proceed with photodynamic therapy. That will help to avoid systemic chemotherapy. He has seen Dr. Lucio Mo, at [facility]. His note mentions: Endosonographically, stage T1b. This is a difficult situation. Locally recurrent GE junction adenocarcinoma already subjected to 50 Gy of radiation. He has no regional nor distant metastatic disease. Ideally surgical resection should be done but his comorbidities that too significant to allow for a safe surgery. Endoscopic submucous ectomy still relatively early in the evolution of the technique and since this lesions pans 2.5 cm in longitudinal dimension that may be too much for endoscopic resection. We have to consider other local ablative modalities to take care of this recurrence. He was given a couple of options: 1. Photodynamic therapy. 2. Brachytherapy. He would favor brachy therapy, since his visceral disease is worrisome, in regards to the bleeding from his variceal disease. That would be more of a risk with photodynamic therapy. (he is not in favor of having to hide from light for 4-6 weeks if he undergoes photodynamic therapy.) Overall the safety profile of brachytherapy would be higher than photodynamic therapy. It also has a better track record. I called the Radiation Oncology Department at [facility] to expedite his appointment for brachy therapy there. D/W Radiation therapist at [facility]. They are recommending re-irradiation. I had discussed with Dr. Sarmiento at [facility], to set it up here, for his convenience. His appointment was on April 12. She did discussed the option of endoscopic resection with the surgeon however they were not keen on it on account of his history of varices. He had a PET scan done, on 05/11/2020 at [facility] which revealed: Focal area of distal esophageal wall thickening with mildly increased activity, SUV max of 5.5. No findings suggestive of distal metastatic disease. He was then referred to Dr. Sarmiento. He completed re-irradiation at [facility], few months ago. He had repeat upper endoscopy by Dr. Suggs, on 09/25. This revealed: Esophagus: The esophagus showed changes consistent with his prior radiation therapy. There was a nodular area just below the EG junction with some inflammatory change. This was biopsied. There were no visible esophageal varices or gastric varices. Stomach: The stomach showed no evidence of masses or ulcers. The previously identified gastric polyps were present. They appeared unchanged from his prior examination. Biopsies were obtained from the gastric polyps. Duodenum: The bulb and second portion were normal. 1. Adenocarcinoma of the EG junction, status post biopsy. 2. Gastric polyps. Unfortunately, the biopsy results revealed: Ulcerated cardiac type mucosa with high-grade dysplasia/in Situ adenocarcinoma. No squamous epithelium seen. This could be residual after radiation and may disappear with the tincture of time. However there is no invasive component, for which any medical treatment could be recommended. He had a left CVA with right-sided weakness. He had PT done. He still has residual right upper extremity weakness but otherwise doing well. Denies any GI complaints. Ultrasound of the abdomen from 02/14/21 revealed: Fatty infiltration of the liver. Patent TIPS. Splenomegaly. He had an upper endoscopy on the 02/12/[address] Suggs which revealed: No evidence of recurrent adenocarcinoma at the EG junction. He has pancytopenia likely related to his liver disease and cirrhosis. His blood count had dropped significantly, at his last visit even though he was not very symptomatic. At his visit on 08/15/21, his hemoglobin went down to 7.2. Iron studies: 20/458/4/6. B12 452. Folate 11.2. Concern was for disease recurrence versus another source of GI blood loss. He was given 2 units of packed RBCs. He underwent an upper endoscopy on 09/[address] Suggs. This revealed a findings consistent with radiation esophagitis/gastritis. Pathology revealed: Polypoid foveolar hyperplasia with chronic active gastritis, negative for H pylori, intestinal metaplasia and dysplasia. The colonoscopy was negative. He was advised to take the proton pump inhibitor twice a day and at Carafate however he did not take the Carafate. He was taking oral iron. Hemoglobin from September 13 was 9.6. 01/03, his hemoglobin is 15.7. It was 14.4, in October. This is reassuring. On 12/27, he fell down and injured his right knee. l proceeded with an x-ray of the knee. This did not reveal any fracture. His knee is all better. He injured his back. CT scan of the T-spine from 11/04 revealed: Stable appearance to the moderate T7 vertebral body compression fracture from September 2023 thoracic spine MRI. There is lucency adjacent to the fracture lines and overall increased sclerosis of the vertebral body. Given history of esophageal cancer, possible pathologic fracture should be considered. Increased sclerosis is likely related to postradiation changes. He underwent a kyphoplasty on 11/22. He still has residual pain. He has recently has had dysphagia to solids. Upper endoscopy on 01/18, by Dr. Suggs. This revealed: Esophagus: The distal esophagus showed a 5 cm area of ulceration with masslike effect consistent with possible recurrence of his adenocarcinoma. Biopsies were carefully obtained from the distal esophagus. There were no esophageal varices identified. Stomach: The stomach showed no evidence of masses or ulcers. Retroflexed examination showed no mass lesion extending below the EG junction. Pathology revealed: Superficial fragments of adenocarcinoma, moderately differentiated. His CBC: WBC 6.4, Hemoglobin is 15.2. PLT 90. LFTs are normal. He had a CT scan of the chest abdomen pelvis on 02/16, which revealed: 1. Marked thickening of the distal esophagus beginning below the level of the itzel down to the GE junction suspicious for recurrent esophageal carcinoma. 2. No evidence of metastatic disease in the chest, abdomen or pelvis. 3. Cirrhotic liver with patent TIPS and splenomegaly. His pathology did show PD-L1 positivity with a CPS score of 5. He was deemed a candidate for pembrolizumab, based therapy. He was started on it, on 03/01. He is here for dose #4. He tolerated the 1st 3 cycles well. I was concerned if he may need a G-tube placement. Reviewing his weight he has lost 5 lb since November. He has not noted much improvement in his swallowing. However his weight appears to be stable. I did address the issue of G-tube or a stent placement to maintain his nutrition. However at this point he would like to wait and see, how things go. PLAN: Will monitor his swallowing function, carefully. He will continue on the pembrolizumab every two weeks. Will restage him with imaging, after completing 6 cycles. He was evaluated by roller inspector and mender and was given some tips. He will return in 2 weeks for a follow-up visit. Thank you, CC: Dr. Gray. Dr. Nikki Acevedo. Dr. Suggs. Dr. Mo. - Time Spent With Patient Time Spent with Patient (in minutes): 25
--- NOTE | 2024-05-03 15:17 | MHC.HEMONC ---
Here for C4 Pembrolizumab. States he is feeling well. He does report slight nausea with occasional vomiting, small amount diarrhea, and some difficulty eating at times. Labs drawn. IV started left forearm with good blood return noted. Lab results show bili level of 1.7. Per Dr Crawford, pt has hx of liver cirrhosis. Pt ok to treat. Premeds given as ordered. Declined zofran. Treatment done and tolerated well. IV removed with no redness or swelling at the site. Dr Crawford in to see pt for follow up. Departure packet given with calendar for next treatment.
[2024-05-24 09:19] VITALS: BP 100/58; PULSE 76; RESP 18; TEMP 36.1; O2SAT 98; BMI 26.1
[2024-05-24 09:27] LABS: MANUAL DIFF FLAG NO
[2024-05-24 09:35] LABS: Basophils Absolute Auto 0.1 X10*3/uL (0.0-0.2); Basophils Percent Auto 0.8 % (0-2); Eosinophils Absolute Auto 0.3 X10*3/uL (0.0-0.4); Eosinophils Percent Auto 3.5 % (0-4); Hematocrit 42.4 % (42.0-52.0); Hemoglobin 15.3 g/dl (14.0-18.0); Imm Gran Abs Auto 0.01 X10*3/uL (0.00-0.03); Imm Gran Pct Auto 0.1 % (0.0-0.4); Lymphocytes Absolute Auto 1.5 X10*3/uL (1.2-4.9); Lymphocytes Percent Auto 18.5 % (20-40); Mean Corpuscular HGB Conc 36.1 g/dl (31.0-36.0); Mean Corpuscular Hemoglobin 32.3 pg (27.0-33.0); Mean Corpuscular Volume 89.6 fL (80.0-98.0); Mean Platelet Volume 9.4 fL (9.4-12.4); Monocytes Absolute Auto 0.6 X10*3/uL (0.1-1.2); Neutrophils Absolute Auto 5.5 x10*3/uL (2.0-8.3); Neutrophils Percent Auto 70.1 % (45-73); Platelet Count 99 X10*3/uL (160-400); Red Blood Count 4.73 X10*6/uL (4.60-5.80); Red Cell Distribution Width 14.8 % (11.0-16.0); White Blood Count 7.9 X10*3/uL (4.8-10.8)
[2024-05-24 09:51] LABS: Alanine Aminotransferase 25 U/L (0-40); Albumin Level 3.4 g/dL (3.5-5.0); Alkaline Phosphatase 82 U/L (39-117); Anion Gap 11 (12-20); Aspartate Amino Transferase 34 U/L (5-37); Bilirubin Total 1.9 mg/dL (0.0-1.0); Blood Urea Nitrogen 13 mg/dL (9-16); Calcium 9.2 mg/dL (8.4-10.2); Carbon Dioxide 28 mmol/L (22-29); Chloride 107 mmol/L (96-108); Creatinine Clr Calc Pharmacy 72.8; Estimated Glomerular Filt Rate > 60; Glucose Random 245 mg/dL (60-115); Potassium 4.2 mmol/L (3.3-5.1); Sodium 142 mmol/L (135-145); Total Protein 6.5 g/dL (6.5-8.0)
[2024-05-24 10:11] LABS: HBc Num1 0.12 S/CO (0.00-0.79); HBsAGNum1 1.16 S/CO (0.00-0.99); Hepatitis B Core Antibody Nonreactive (Nonreactive); ~Hepatitis B Surface Antibody NONREACTIVE (Nonreactive)
[2024-05-24] MEDS: Ondansetron ODT 8 MG TAB.RAPDIS TRANSLINGU (11:11)
[2024-05-24] MEDS: Acetaminophen 325 MG TABLET 650 MG PO (11:11)
[2024-05-24] MEDS: diphenhydrAMINE HCL 50 MG/ML VIAL 25 MG IVPUSH (11:12)
[2024-05-24 14:22] LABS: HBsAGNum2 Nonreactive; HBsAGNum3 Nonreactive; Hepatitis B Surface Antigen NEGATIVE (Negative)
--- NOTE | 2024-05-24 17:37 | MHC.HEMONC ---
Pt was in for C5D1 Pembro, VSS, reports feeling fair, but has intermittent nausea, can hardly eat anything, asked for refill of PRN zofran, nurse called [facility], pt has 3 refills, he will be contacted to crop picker. 24g PIV started in pt's left forearm with good blood return noted, x3 attempts. Premeds given as ordered, including PO zofran this time. Treatment done and tolerated well. PIV removed with no redness or swelling at the site. Departure packet given with calendar for next appointment. Pt brought to front via wheelchair.
[2024-06-14 10:17] LABS: MANUAL DIFF FLAG NO
[2024-06-14 10:20] LABS: Basophils Percent Auto 0.7 % (0-2); Eosinophils Absolute Auto 0.1 X10*3/uL (0.0-0.4); Eosinophils Percent Auto 2.2 % (0-4); Hematocrit 41.8 % (42.0-52.0); Hemoglobin 14.9 g/dl (14.0-18.0); Imm Gran Abs Auto 0.02 X10*3/uL (0.00-0.03); Imm Gran Pct Auto 0.3 % (0.0-0.4); Lymphocytes Absolute Auto 0.9 X10*3/uL (1.2-4.9); Lymphocytes Percent Auto 15.6 % (20-40); Mean Corpuscular HGB Conc 35.6 g/dl (31.0-36.0); Mean Corpuscular Hemoglobin 32.2 pg (27.0-33.0); Mean Corpuscular Volume 90.3 fL (80.0-98.0); Mean Platelet Volume 9.6 fL (9.4-12.4); Monocytes Absolute Auto 0.4 X10*3/uL (0.1-1.2); Monocytes Percent Auto 6.8 % (2-11); Neutrophils Absolute Auto 4.5 x10*3/uL (2.0-8.3); Neutrophils Percent Auto 74.4 % (45-73); Red Blood Count 4.63 X10*6/uL (4.60-5.80)
[2024-06-14 10:27] VITALS: BP 128/68; PULSE 93; RESP 18; TEMP 36.5; O2SAT 99; BMI 25.5
[2024-06-14 10:37] LABS: Platelet Count 72 X10*3/uL (160-400)
[2024-06-14 10:47] LABS: Alanine Aminotransferase 33 U/L (0-40); Albumin Level 3.2 g/dL (3.5-5.0); Alkaline Phosphatase 86 U/L (39-117); Anion Gap 9 (12-20); Aspartate Amino Transferase 48 U/L (5-37); Bilirubin Total 1.6 mg/dL (0.0-1.0); Blood Urea Nitrogen 17 mg/dL (9-16); Calcium 9.1 mg/dL (8.4-10.2); Carbon Dioxide 30 mmol/L (22-29); Chloride 108 mmol/L (96-108); Creatinine Clr Calc Pharmacy 74.4; Estimated Glomerular Filt Rate > 60; Glucose Random 393 mg/dL (60-115); Potassium 3.8 mmol/L (3.3-5.1); Sodium 143 mmol/L (135-145); Total Protein 6.4 g/dL (6.5-8.0)
[2024-06-14] MEDS: Insulin Lispro 100 UNIT/ML 3 ML VIAL 10 UNIT SUBCUT (11:24)
[2024-06-14 11:27] LABS: Thyroid Stimulating Hormone 1.06 uIU/mL (0.32-4.0)
[2024-06-14] MEDS: Ondansetron ODT 8 MG TAB.RAPDIS TRANSLINGU (12:38)
[2024-06-14] MEDS: Acetaminophen 325 MG TABLET 650 MG PO (12:38)
[2024-06-14] MEDS: diphenhydrAMINE HCL 50 MG/ML VIAL 25 MG IVPUSH (12:39)
--- NOTE | 2024-06-14 16:25 | MHC.HEMONC ---
Pt was in for C6D1 Pembro, VSS, reports he's been very weak due to poor nutritional intake, dysphagia has worsened to the point where he cannot consume anything but liquids, only takes ensure, said he has stopped taking all PO meds, including PO diabetic meds which in clude his metformin. Pt reports intermittent nausea, frequently regurgitates food/drink. Pt's labs drawn/reviewed, chem lab called to report pt's blood glucose was 393, pt repeated he cannot take diabetes meds. Dr. Nash was updated, nurse admin Insulin Lispro 10 units SC to pt's LLQ abdomen. Nurse to update Dr. Crawford on Thur upon her return to office, possibly reassess plan, including discussion of g-tune placement. Nurse Mary placed 22g PIV in pt's left forearm with good blood return noted. Premeds given: PO zofran, PO tylenol, and IV benadryl. this time. Nurse admin IV Pembrolizumab, pt tolerated well. PIV removed with no redness or swelling at the site. Departure packet given with calendar for next appointment. Pt brought to front via wheelchair. Pt requested new scrip for Ensure, said from his insurance company. [facility], said he would be covered, Dr. Crawford will be asked to send new scrip to [facility] at .
[2024-06-16 14:23] LABS: HBsAGNum1 0.41 S/CO (0.00-0.99); Hepatitis B Core Antibody Nonreactive (Nonreactive); Hepatitis B Surface Antigen Negative (Negative); ~Hepatitis B Surface Antibody NONREACTIVE (Nonreactive)
--- NOTE | 2024-06-28 15:01 | MHC.HEMONC ---
Triage call from Dolly from [facility] to confirm pts next follow up appointment. Appointment day and time given to pt, 07/05/24 at 9:20
--- NOTE | 2024-07-05 09:19 | MHC.HEMONC ---
Pt was scheduled to see Dr Crawford today but she was out sick. He does not want any more of this regimen as it was not helping his cancer . Dr Suggs told him this when he tried to do endoscopy. Patient now has G-tube for all nutrition. Chemo canceled and pt is now scheduled to see Dr Crawford next Thursday at 11:20.
--- NOTE | 2024-07-11 11:20 | P.PNHO-ONC_ITS ---
Medical Summary - Medical Summary Date of Service: 07/11/24 Chief complaint: Follow-up for: Recurrent adenocarcinoma of the esophagus. Primary Care Provider: Nikhil Gray [facility] Medical Summary: Diagnosis: Adenocarcinoma of the esophagus, of the lower end. Current Therapy: 1. Combined modality therapy with radiation along with weekly carboplatin and Taxol, had 4 weeks, Completed 08/21/2017. 2. Had disease recurrence, seen at the EG junction on endoscopy on October 27, 2020. Completed re- radiation, 07/04/20. RECURRENT CARCINOMA OF THE ESOPHAGUS. Started on pembrolizumab on 03/01. Had cycle 4 on 06/20/24. Interval History Interval history: This is a pleasant 63 year-old gentleman, here for a follow-up visit. He was in house between 06/16 and 06/24. Discharge summary: 62-year-old male with a past medical history of adenocarcinoma of the lower esophagus, type 2 diabetes, cirrhosis status post TIPS procedure, seizure disorder on Keppra who presented to the ER with progressive dysphagia and odynophagia. Pt is actively receiving chemotherapy. He reports that over the last several weeks he has lost 10-20 lb as he has been unable to consume anything by mouth. Reports dysphagia to even liquids. He reports odynophagia to liquids as well. He states at times he has regurgitated his medications which are taken the day before. Due to ongoing difficulty with this, the patient was advised to come to the emergency room by his oncologist. In the ED the patient's blood work showed signs of dehydration with an elevated BUN and elevated bicarb indicative of contraction alkalosis. The patient has been given 1 L of IV fluids. He has been seen in consultation by his GI, Dr. Suggs with plans for PEG tube insertion. The possibility of surgical feeding tube insertion remains large given his presenting dysphagia even to liquids. hospital course: Patient was admitted for odynophagia and dysphagia due to recurrence of esophageal cancer complicated by moderate protein calorie malnutrition. 06/17, Pt underwent EGD which revealed recurrent mass in the lower esophagus. However scope could not be passed through it. It was biopsied and showed recurrent adenocarcinoma. A PEG tube could not be placed. 06/20/2024, he underwent a surgical G-tube by Dr. Sahu. He was then started on feeds and is tolerated bolus feeds. We will continue bolus feeds at home. For cirrhosis complicated by chronic thrombocytopenia he remained stable. For acute hypokalemia and acute hypophosphatemia he received replacement. For diabetes was monitored with point of cares. For seizure disorder he was continued on Keppra. Patient will be discharged home. He complains of pain at the G-tube site. This is worse at night. He is using 7 bottles of the tube feeding in 24 hours. He starts at 04:00 to get them all in. Has not gained much weight, however he has not lost it either. He also has had difficulty swallowing. He can only swallow sips of water. He does feel rather tired. No headache, he gets occasional dizziness. Denies trouble breathing. No cough no sputum. He denies abdominal pain nausea vomiting heartburn indigestion. Bowels are working without any gross blood in it. There is no black/dark stool. INTERIM HISTORY: He had dysphagia symptoms, mostly to solids. Upper endoscopy on 01/18, by Dr. Suggs. This revealed: Esophagus: The distal esophagus showed a 5 cm area of ulceration with masslike effect consistent with possible recurrence of his adenocarcinoma. Biopsies were carefully obtained from the distal esophagus. There were no esophageal varices identified. Stomach: The stomach showed no evidence of masses or ulcers. Retroflexed examination showed no mass lesion extending below the EG junction. Pathology revealed: Superficial fragments of adenocarcinoma, moderately differentiated. He still has ongoing swallowing issues. This is more to solids. He is able to swallow a soft diet including rice and pasta. He has lost weight. He was 220 lb and now down to 185. PREVIOUS HISTORY: He tells me he has had back pain. This started after he was using a sledgehammer. 4?22: MRI of the spine revealed: 1. Subacute T7 upper endplate impaction fracture with similar approximately 50% height loss and anterior wedging compared to radiograph from 08/24/2023. 2. Marrow signal abnormality throughout the thoracic spinal column as above that be correlated for history of prior radiation therapy with radiation induced fatty marrow signal change in the midthoracic spine likely on a background of diffuse osteopenia. 3. Cirrhotic hepatic morphology and splenomegaly. Soft tissue thickening in the region of the distal esophagus, better characterized on prior PET from 12/03/2017. He actually underwent a kyphoplasty on 11/22 by interventional radiology. INTERIM HISTORY: On 04/14 he was seen in the ER: 61-year-old male with history of type 2 diabetes, HTN, seizures, adenocarcinoma of the esophagus who presents to the ER for evaluation of a left thumb injury, through and through injury with a drill bit. X-ray reviewed and does not appear to have bony involvement. He has normal function of all tendons. No sensory deficit. No active bleeding. The wound was soaked in Betadine, saline, Hydrogen peroxide combination for antiseptic affect. Will prescribe prophylactic antibiotics to prevent infection. Tdap given. Patient counseled on wound care and return precautions. He is stable for discharge home. He was seen by Dr. Suggs on 04/02/22: Upper endoscopy in August showed no evidence of recurrence of his esophageal adenocarcinoma. Gastric polyp biopsy showed polypoid foamy hyperplasia chronic active gastritis and no H pylori. He continues on the Protonix 40 mg. With respect to his liver disease ultrasound earlier this year showed patent tips shunt without focal liver lesion. No varices were noted on endoscopy in August. Radiation changes were seen. Colonoscopy showed a nonbleeding 8 mm avium on the ileocecal valve and hemorrhoids. His anemia has resolved with iron supplementation. No endoscopy was recommended at that time. Previous history: He had fallen over the weekend. They had a yd sale at their home. He just tripped. Since then he had pain in his right knee. He has some abrasions there. He has a hard time walking. l proceeded with an x-ray of the knee on 01/03: Mild osteopenia. No visible acute fracture, dislocation or subluxation seen. He tells me his knee is much better now. He cannot kneel down but he is able to bend it. He had an upper endoscopy on 02/12/[address] Suggs. Did not reveal any residual cancer. He is on a new medication for diabetes. It does appear to be helping. Blood sugars are in the range of 118-120. He is in good spirits. Rest of the review of systems is unremarkable. He tells me he has some blood vessels growth in his eyes. He is under the care of [facility] centered in [place]. They are monitoring it for now. He denies any major visual complaints. Interim history: He was noted to be rather anemic. He required blood transfusion. He underwent an upper endoscopy and colonoscopy on 09/[address] Suggs. Results: UPPER ENDOSCOPY: Esophagus: The esophagus showed changes consistent with radiation therapy over the lower 1/3 with small areas of petechiae measuring 1-2 mm. There was no evidence of recurrent adenocarcinoma at the EG junction. No biopsies were obtained due to the patient's history of esophageal varices and thrombocytopenia. No varices were seen. Stomach: The stomach showed no evidence of masses or ulcers. There were 2 polyps present at the antrum near the pyloric channel. These had been seen on prior examinations and they were re-biopsied. The largest measured approximately 15 mm x 20 mm. Duodenum: The bulb and second portion were normal. COLONOSCOPY: The terminal ileum was normal. The prep was excellent. There was an 8 mm nonbleeding AVM on the ileocecal valve. No other AVMs were identified. No polyps were seen. Retroflexed examination showed moderate-sized internal hemorrhoids. IMPRESSION: 1. Radiation changes to the lower esophagus. 2. Gastric polyps. 3. Colonic arteriovenous malformation. RECOMMENDATION: 1. Follow up the biopsy results. 2. Repeat colonoscopy is recommended in 10 years for average risk individuals. 3. Continue present therapy. Previous history: He completed re irradiation in May. He tolerated it well for the most part. He did not develop any swallowing difficulty however he did end up with a cold and a cough which lasted about 5 weeks. It has resolved now. He had a stroke several months ago. He went through a course physical therapy. He still has residual right upper extremity weakness. He is trying to stay active. He does yard work at home. He denies any dysphagia or odynophagia. Review of Systems - Constitutional Reports no additional constitutional complaints, Reports lack of energy, Reports malaise, Denies weight loss - Eyes Reports no additional eye complaints - ENT Reports no additional ear, nose, mouth, and throat complaints - Cardiovascular Reports no additional cardiovascular complaints, Reports chest pain at rest - Respiratory Reports no additional respiratory complaints - Gastrointestinal Reports no additional gastrointestinal complaints - Genitourinary Genitourinary: Reports no additional male genitourinary complaints - Musculoskeletal Reports no additional musculoskeletal complaints - Integumentary/Breasts Skin/Breast: Reports no additional skin complaints - Neurologic Reports no additional neurologic complaints, Reports abnormal gait, Denies frequent falls, Reports focal weakness, Denies weakness - Psychiatric Reports no additional psychiatric complaints - Endocrine Reports no additional endocrine complaints - Hematologic/Lymphatic Reports no additional hematologic/lymphatic complaints - Allergic/Immunologic Reports no additional allergic/immunologic complaints [facility] Medical History: Medical History (Last Reviewed 07/11/24 @ 11:28 by Ayde Jurado) Adenocarcinoma of lower esophagus Alcoholic cirrhosis Anemia Constipation Diabetes Elevated ferritin Esophageal varices Esophagus, carcinoma Hepatic cirrhosis Hepatitis C History of blood transfusion History of GI bleed Onset Date: ~2017 Hx of splenomegaly Hyperlipidemia LDL goal <70 Male circumcision Seizure disorder Stroke Thrombocytopenia Type 2 diabetes mellitus with diabetic polyneuropathy Type 2 diabetes mellitus with hyperglycemia Wears dentures Functional capacity: independent ambulation Patient : No Family History: Family History (Last Reviewed 07/11/24 @ 11:29 by Ayde Jurado) Father No problems noted. Mother Diabetes mellitus Surgical History: Surgical History (Last Reviewed 07/11/24 @ 11:29 by Ayde Jurado) History of surgery on lower extremity Onset Date: ~2003 Hx of circumcision Hx of colonoscopy Onset Date: 08/2021 Hx of endoscopy Onset Date: 08/2021 S/P percutaneous endoscopic gastrostomy (PEG) tube placement S/P transjugular intrahepatic portosystemic shunt Onset Date: ~2017 Social History: Social History (Last Reviewed 07/11/24 @ 11:29 by Ayde Jurado) Living Situation History: Household Members: Spouse Household Members Other:: Spouse: Antoni Housing: House Are you a primary senior care specialist to a significant other at home: No Do you presently have visiting nurse or other home services: No Alcohol History Details: 1. How often do you have a drink containing alcohol?: a. Never Tobacco History: Patient Tobacco Use Status: Former Tobacco user Tobacco use type: Cigarette Years Smoked: 10 Smoked in Last 30 Days: No Smoking End Date: 11/19/23 e-Cigarette/Vaping Use: Never Used Second Hand Smoke Exposure: No Substance Use History: Use of substances other than those prescribed or required for medical reasons : No Domestic Abuse History: Have you been hit, kicked, punched, or otherwise hurt by someone within the past year? If so, by whom?: No Do you feel safe in your current relationship?: Yes Advance Directives: Advance Directives: No Advance Directives Information Provided: No Advance Directives Date on File: 01/28/21 Homicidal Assessment: Do you have thoughts of harming others: None Do you have a plan to hurt others: No Plan Do you have the means to hurt others: No Nutrition Assessment: Recently lost weight without trying: No Patient : No Occupation Assessmet: service: No Current occupational status: disabled Oncology Screenings - ECOG Performance Status ECOG Performance Status: 0 Home Medications and Allergies Home Medications ?Medication ?Instructions ?Recorded ?Confirmed ?Type lancets 33 gauge #100 ea 08/15/20 07/11/24 History pen needle, diabetic 31 gauge x #1,200 ea 08/15/20 07/11/24 History 5/16 ondansetron 8 mg disintegrating 8 mg PO Q8H PRN Nausea And Vomiting 06/16/24 07/11/24 History tablet acetaminophen 325 mg tablet 650 mg PO Q6H PRN Pain (Scale 06/24/24 07/11/24 History Score 1-3) magnesium oxide 400 mg feeding tube BIDPC 06/24/24 07/11/24 History pantoprazole 40 mg intravenous 40 mg IV BID 06/24/24 07/11/24 History solution (Protonix) Allergies Allergy/AdvReac Type Severity Reaction Status Date / Time No Known Allergies Allergy Verified 07/11/24 11:30 Exam Vital signs: Vital Signs Temp 97.7 F 06/14/24 10:27 Pulse 93 06/14/24 10:27 Resp 18 06/14/24 10:27 BP 128/68 06/14/24 10:27 Pulse Ox 99 06/14/24 10:27 O2 Del Method Room Air 06/14/24 10:27 Weight 74 kg BMI result Body Mass Index 25.5 - Constitutional Present: no acute distress - Routine HEENT Exam Head: Present: normal inspection Eye: Present: normal appearance ENT: Present: mucous membranes moist - Routine Neck Exam Present: full ROM - Routine Respiratory Exam Present: CTAB - Routine Cardiovascular Exam Cardiovascular: Present: RRR, S1, S2 - Routine Abdominal Exam Present: soft, nontender - Routine Extremities Exam Present: joint swelling, nontender - Routine Back/Spine/Pelvis Exam Back/Spine: Present: full ROM - Routine Skin Exam Present: intact - Routine Neurological Exam Present: alert, oriented X3 - Detailed Neurological Exam: Coma Scale Eye Opening: Spontaneous (4) - Routine Psychiatric Exam Present: normal affect Data - Labs CBC & Chem 7: 07/11/24 12:04 07/11/24 12:04 - Imaging Radiologist's impression: ITS Impressions Knee X-Ray 12/31/21 13:49 IMPRESSION: Mild osteopenia. No visible acute fracture, dislocation or subluxation seen. Assessment and Plan Patient Active problem list reviewed?: Yes (1) Adenocarcinoma of lower esophagus Status: Acute Assessment and plan: This is a pleasant, 59 year-old gentleman with history of Hepatitis C, Esophageal Adenocarcinoma. He completed combined modality therapy with radiation plus chemotherapy, in August of 2017. CT chest with contrast performed 10/22/17 showed wall thickening of the distal thoracic esophagus, enlarged paraesophageal varices, no enlarged hilar or mediastinal lymph nodes, enlarged spleen and mild upper abdominal lymphadenopathy, largest lymph node in the periportal region measuring 1.5x1.3 cm. Also a nonspecific 1 cm lucent lesion in the superior endplate of T7 would whole-body, ? metastasis. Several nonspecific lytic lesions in the thoracic and visualized upper lumbar vertebral bodies questionable for possible metastatic disease. He denies any dysphagia or odynophagia. Routine endoscopy reveals disease recurrence, with a 2 cm mass just below the EG junction. Pathology confirms: Moderately differentiated Adenocarcinoma. A PET scan, was denied. CT scan of the chest from November 24 revealed: 1. No pulmonary nodule, mass or groundglass opacity is seen. 2. There is no thoracic lymphadenopathy. 3. There is are cirrhotic changes of the liver redemonstrated, without focal mass seen. 4. There is interim placement of a portocaval shunt. The splenic and mesenteric veins appear patent. Upper abdominal varices are less pronounced than seen. 5. There is stable wall thickening of the gastroesophageal junction. 6. No abdominopelvic metastasis, free fluid or lymphadenopathy is seen. Unfortunately, he is really not a surgical candidate. He has already had radiation therapy so that is not an option. He underwent an endoscopic ultrasound to evaluate for the thickness of the tumor, and possible adenopathy. This was done on January [address] Elizabet Gilliam. Findings: Endoscopy revealed a 1.5-2 cm GE junction mass, that appeared to be semi pedunculated. Evidence of mild portal hypertensive gastropathy in the stomach. Two small polyps noted in the stomach 1 in the gastric body and other just proximal to the pyloric sphincter. Polyps appeared reactive. Endoscopic ultrasound: Tumor was hypoechoic 1.8 x 1.4 cm, likely T1b, and 0. The MP was intact. Small varices noted in the submucosa. No aortic nor vertebral invasion. Normal celiac takeoff. No obvious lesion in the liver. Normal appearing pancreatic duct. The plan initially was to proceed with photodynamic therapy. That will help to avoid systemic chemotherapy. He has seen Dr. Lucio Mo, at [facility]. His note mentions: Endosonographically, stage T1b. This is a difficult situation. Locally recurrent GE junction adenocarcinoma already subjected to 50 Gy of radiation. He has no regional nor distant metastatic disease. Ideally surgical resection should be done but his comorbidities that too significant to allow for a safe surgery. Endoscopic submucous ectomy still relatively early in the evolution of the technique and since this lesions pans 2.5 cm in longitudinal dimension that may be too much for endoscopic resection. We have to consider other local ablative modalities to take care of this recurrence. He was given a couple of options: 1. Photodynamic therapy. 2. Brachytherapy. He would favor brachy therapy, since his visceral disease is worrisome, in regards to the bleeding from his variceal disease. That would be more of a risk with photodynamic therapy. (he is not in favor of having to hide from light for 4-6 weeks if he undergoes photodynamic therapy.) Overall the safety profile of brachytherapy would be higher than photodynamic therapy. It also has a better track record. I called the Radiation Oncology Department at [facility] to expedite his appointment for brachy therapy there. D/W Radiation therapist at [facility]. They are recommending re-irradiation. I had discussed with Dr. Sarmiento at [facility], to set it up here, for his convenience. His appointment was on April 12. She did discussed the option of endoscopic resection with the surgeon however they were not keen on it on account of his history of varices. He had a PET scan done, on 05/11/2020 at [facility] which revealed: Focal area of distal esophageal wall thickening with mildly increased activity, SUV max of 5.5. No findings suggestive of distal metastatic disease. He was then referred to Dr. Sarmiento. He completed re-irradiation at [facility], few months ago. He had repeat upper endoscopy by Dr. Suggs, on 09/25. This revealed: Esophagus: The esophagus showed changes consistent with his prior radiation therapy. There was a nodular area just below the EG junction with some inflammatory change. This was biopsied. There were no visible esophageal varices or gastric varices. Stomach: The stomach showed no evidence of masses or ulcers. The previously identified gastric polyps were present. They appeared unchanged from his prior examination. Biopsies were obtained from the gastric polyps. Duodenum: The bulb and second portion were normal. 1. Adenocarcinoma of the EG junction, status post biopsy. 2. Gastric polyps. Unfortunately, the biopsy results revealed: Ulcerated cardiac type mucosa with high-grade dysplasia/in Situ adenocarcinoma. No squamous epithelium seen. This could be residual after radiation and may disappear with the tincture of time. However there is no invasive component, for which any medical treatment could be recommended. He had a left CVA with right-sided weakness. He had PT done. He still has residual right upper extremity weakness but otherwise doing well. Denies any GI complaints. Ultrasound of the abdomen from 02/14/21 revealed: Fatty infiltration of the liver. Patent TIPS. Splenomegaly. He had an upper endoscopy on the 02/12/[address] Suggs which revealed: No evidence of recurrent adenocarcinoma at the EG junction. He has pancytopenia likely related to his liver disease and cirrhosis. His blood count had dropped significantly, at his last visit even though he was not very symptomatic. At his visit on 08/15/21, his hemoglobin went down to 7.2. Iron studies: 20/458/4/6. B12 452. Folate 11.2. Concern was for disease recurrence versus another source of GI blood loss. He was given 2 units of packed RBCs. He underwent an upper endoscopy on 09/[address] Suggs. This revealed a findings consistent with radiation esophagitis/gastritis. Pathology revealed: Polypoid foveolar hyperplasia with chronic active gastritis, negative for H pylori, intestinal metaplasia and dysplasia. The colonoscopy was negative. He was advised to take the proton pump inhibitor twice a day and at Carafate however he did not take the Carafate. He was taking oral iron. Hemoglobin from September 13 was 9.6. 01/03, his hemoglobin is 15.7. It was 14.4, in October. This is reassuring. On 12/27, he fell down and injured his right knee. l proceeded with an x-ray of the knee. This did not reveal any fracture. His knee is all better. He injured his back. CT scan of the T-spine from 11/04 revealed: Stable appearance to the moderate T7 vertebral body compression fracture from September 2023 thoracic spine MRI. There is lucency adjacent to the fracture lines and overall increased sclerosis of the vertebral body. Given history of esophageal cancer, possible pathologic fracture should be considered. Increased sclerosis is likely related to postradiation changes. He underwent a kyphoplasty on 11/22. He still has residual pain. He has recently has had dysphagia to solids. Upper endoscopy on 01/18, by Dr. Suggs. This revealed: Esophagus: The distal esophagus showed a 5 cm area of ulceration with masslike effect consistent with possible recurrence of his adenocarcinoma. Biopsies were carefully obtained from the distal esophagus. There were no esophageal varices identified. Stomach: The stomach showed no evidence of masses or ulcers. Retroflexed examination showed no mass lesion extending below the EG junction. Pathology revealed: Superficial fragments of adenocarcinoma, moderately differentiated. His CBC: WBC 6.4, Hemoglobin is 15.2. PLT 90. LFTs are normal. He had a CT scan of the chest abdomen pelvis on 02/16, which revealed: 1. Marked thickening of the distal esophagus beginning below the level of the itzel down to the GE junction suspicious for recurrent esophageal carcinoma. 2. No evidence of metastatic disease in the chest, abdomen or pelvis. 3. Cirrhotic liver with patent TIPS and splenomegaly. His pathology did show PD-L1 positivity with a CPS score of 5. He was deemed a candidate for pembrolizumab, based therapy. He was started on it, on 03/01. 06/20, He had cycle #4. He tolerated the 1st 3 cycles well. Subsequently, he called mentioning that he was not able to swallow food. He was advised to go into the hospital. A G-tube placement was attempted. However the scope did not pass through. He then had a gastrostomy tube placed surgically. He is now receiving tube feedings. It appears that he stopped responding to the pembro. Further options are limited, in view of his poor reserve due to thrombocytopenia. He could possibly receive palliative radiation, although he has had radiation twice in the past. Last time was in 2020. PLAN: I will get an opinion from Dr. Santillan from [facility], to see what she would recommend. If there is no more room, would consider palliative chemotherapy, with weekly carbo Taxol. I will give him low-dose oxycodone to help with the pain and insomnia. He will return in 2 weeks for a follow-up visit. Thank you, CC: Dr. Gray. Dr. Nikki Acevedo. Dr. Suggs. Dr. Mo. - Time Spent With Patient Time Spent with Patient (in minutes): 25
[2024-07-11 11:31] VITALS: BP 107/66; PULSE 112; O2SAT 96; BMI 25.7
[2024-07-11 12:04] LABS: MANUAL DIFF FLAG NO
[2024-07-11 12:12] LABS: Basophils Percent Auto 0.5 % (0-2); Eosinophils Absolute Auto 0.2 X10*3/uL (0.0-0.4); Eosinophils Percent Auto 2.1 % (0-4); Hematocrit 40.8 % (42.0-52.0); Hemoglobin 14.2 g/dl (14.0-18.0); Imm Gran Abs Auto 0.01 X10*3/uL (0.00-0.03); Imm Gran Pct Auto 0.1 % (0.0-0.4); Lymphocytes Absolute Auto 0.7 X10*3/uL (1.2-4.9); Lymphocytes Percent Auto 9.5 % (20-40); Mean Corpuscular HGB Conc 34.8 g/dl (31.0-36.0); Mean Corpuscular Hemoglobin 31.9 pg (27.0-33.0); Mean Corpuscular Volume 91.7 fL (80.0-98.0); Mean Platelet Volume 9.7 fL (9.4-12.4); Monocytes Absolute Auto 0.8 X10*3/uL (0.1-1.2); Neutrophils Absolute Auto 5.8 x10*3/uL (2.0-8.3); Neutrophils Percent Auto 77.8 % (45-73); Platelet Count 112 X10*3/uL (160-400); Red Blood Count 4.45 X10*6/uL (4.60-5.80); Red Cell Distribution Width 14.6 % (11.0-16.0); White Blood Count 7.5 X10*3/uL (4.8-10.8)
[2024-07-11 12:33] LABS: Alanine Aminotransferase 30 U/L (0-40); Albumin Level 3.3 g/dL (3.5-5.0); Alkaline Phosphatase 148 U/L (39-117); Anion Gap 13 (12-20); Aspartate Amino Transferase 56 U/L (5-37); Bilirubin Total 0.9 mg/dL (0.0-1.0); Blood Urea Nitrogen 14 mg/dL (9-16); Calcium 8.9 mg/dL (8.4-10.2); Carbon Dioxide 26 mmol/L (22-29); Chloride 106 mmol/L (96-108); Creatinine Clr Calc Pharmacy 117.8; Estimated Glomerular Filt Rate > 60; Glucose Random 152 mg/dL (60-115); Potassium 4.1 mmol/L (3.3-5.1); Sodium 141 mmol/L (135-145); Total Protein 7.1 g/dL (6.5-8.0)
--- NOTE | 2024-07-12 10:55 | MHC.HEMONCMA ---
Patient present in office today 07/11/24, VSS and Labs done, Follow up will be scheduled after visit with Valentine Santillan.
--- NOTE | 2024-07-18 11:30 | MHC.HEMONC ---
Pt called triage line stated that he hasen't heard from [facility] yet. Dr Crawford notified and will call Dr Santillan.
--- NOTE | 2024-07-26 17:29 | MHC.HEMONC ---
Pt's chemo appt for today was cancelled, nurse confirmed w/ Dr. Crawford that she had cancelled his Keytruda appts, recommended he f/u w/ [facility] Dr. Santillan to see if he was candidate for additional radiation to ease his dysphagia symptoms. Nurse spoke w/ Elizabeth at Dr. Santillan's office at [facility], she confirmed pt has [facility] consult scheduled for today. Nurse requested that Dr. Crawford be updated as to results of today's appt, and she said she would be. Per Dr. Crawford, she may switch pt to alternative chemo regimen of carbo/paclitaxel if rad tx is not an option.
--- NOTE | 2024-07-28 08:40 | P.PNHO-ONC_ITS ---
Medical Summary - Medical Summary Date of Service: 07/28/24 Chief complaint: Follow-up for: Carcinoma of the esophagus. Primary Care Provider[facility] Summary: Diagnosis: Adenocarcinoma of the esophagus, of the lower end. Current Therapy: 1. Combined modality therapy with radiation along with weekly carboplatin and Taxol, had 4 weeks, Completed 08/21/2017. 2. Had disease recurrence, seen at the EG junction on endoscopy on October 27, 2020. Completed re- radiation, 07/04/20. RECURRENT CARCINOMA OF THE ESOPHAGUS. Started on pembrolizumab on 03/01. Had cycle 4 on 06/20/24. Gas Plant Dispatcher Utilized?: No - French Speaking Interval History Interval history: This is a pleasant 63 year-old gentleman, here for a follow-up visit. He was in house between 06/16 and 06/24. Discharge summary: 62-year-old male with a past medical history of adenocarcinoma of the lower esophagus, type 2 diabetes, cirrhosis status post TIPS procedure, seizure disorder on Keppra who presented to the ER with progressive dysphagia and odynophagia. Pt is actively receiving chemotherapy. He reports that over the last several weeks he has lost 10-20 lb as he has been unable to consume anything by mouth. Reports dysphagia to even liquids. He reports odynophagia to liquids as well. He states at times he has regurgitated his medications which are taken the day before. Due to ongoing difficulty with this, the patient was advised to come to the emergency room by his oncologist. In the ED the patient's blood work showed signs of dehydration with an elevated BUN and elevated bicarb indicative of contraction alkalosis. The patient has been given 1 L of IV fluids. He has been seen in consultation by his GI, Dr. Suggs with plans for PEG tube insertion. The possibility of surgical feeding tube insertion remains large given his presenting dysphagia even to liquids. hospital course: Patient was admitted for odynophagia and dysphagia due to recurrence of esophageal cancer complicated by moderate protein calorie malnutrition. 06/17, Pt underwent EGD which revealed recurrent mass in the lower esophagus. However scope could not be passed through it. It was biopsied and showed recurrent adenocarcinoma. A PEG tube could not be placed. 06/20/2024, he underwent a surgical G-tube by Dr. Sahu. He was then started on feeds and is tolerated bolus feeds. We will continue bolus feeds at home. For cirrhosis complicated by chronic thrombocytopenia he remained stable. For acute hypokalemia and acute hypophosphatemia he received replacement. For diabetes was monitored with point of cares. For seizure disorder he was continued on Keppra. Patient will be discharged home. He complains of pain at the G-tube site. This is worse at night. He is using 7 bottles of the tube feeding in 24 hours. He starts at 04:00 to get them all in. Has not gained much weight, however he has not lost it either. He also has had difficulty swallowing. He can only swallow sips of water. He does feel rather tired. No headache, he gets occasional dizziness. Denies trouble breathing. No cough no sputum. He denies abdominal pain nausea vomiting heartburn indigestion. Bowels are working without any gross blood in it. There is no black/dark stool. INTERIM HISTORY: He had dysphagia symptoms, mostly to solids. Upper endoscopy on 01/18, by Dr. Suggs. This revealed: Esophagus: The distal esophagus showed a 5 cm area of ulceration with masslike effect consistent with possible recurrence of his adenocarcinoma. Biopsies were carefully obtained from the distal esophagus. There were no esophageal varices identified. Stomach: The stomach showed no evidence of masses or ulcers. Retroflexed examination showed no mass lesion extending below the EG junction. Pathology revealed: Superficial fragments of adenocarcinoma, moderately differentiated. He still has ongoing swallowing issues. This is more to solids. He is able to swallow a soft diet including rice and pasta. He has lost weight. He was 220 lb and now down to 185. PREVIOUS HISTORY: He tells me he has had back pain. This started after he was using a sledgehammer. 4?22: MRI of the spine revealed: 1. Subacute T7 upper endplate impaction fracture with similar approximately 50% height loss and anterior wedging compared to radiograph from 08/24/2023. 2. Marrow signal abnormality throughout the thoracic spinal column as above that be correlated for history of prior radiation therapy with radiation induced fatty marrow signal change in the midthoracic spine likely on a background of diffuse osteopenia. 3. Cirrhotic hepatic morphology and splenomegaly. Soft tissue thickening in the region of the distal esophagus, better characterized on prior PET from 12/03/2017. He actually underwent a kyphoplasty on 11/22 by interventional radiology. INTERIM HISTORY: On 04/14 he was seen in the ER: 61-year-old male with history of type 2 diabetes, HTN, seizures, adenocarcinoma of the esophagus who presents to the ER for evaluation of a left thumb injury, through and through injury with a drill bit. X-ray reviewed and does not appear to have bony involvement. He has normal function of all tendons. No sensory deficit. No active bleeding. The wound was soaked in Betadine, saline, Hydrogen peroxide combination for antiseptic affect. Will prescribe prophylactic antibiotics to prevent infection. Tdap given. Patient counseled on wound care and return precautions. He is stable for discharge home. He was seen by Dr. Suggs on 04/02/22: Upper endoscopy in August showed no evidence of recurrence of his esophageal adenocarcinoma. Gastric polyp biopsy showed polypoid foamy hyperplasia chronic active gastritis and no H pylori. He continues on the Protonix 40 mg. With respect to his liver disease ultrasound earlier this year showed patent tips shunt without focal liver lesion. No varices were noted on endoscopy in August. Radiation changes were seen. Colonoscopy showed a nonbleeding 8 mm avium on the ileocecal valve and hemorrhoids. His anemia has resolved with iron supplementation. No endoscopy was recommended at that time. Previous history: He had fallen over the weekend. They had a yd sale at their home. He just tripped. Since then he had pain in his right knee. He has some abrasions there. He has a hard time walking. l proceeded with an x-ray of the knee on 01/03: Mild osteopenia. No visible acute fracture, dislocation or subluxation seen. He tells me his knee is much better now. He cannot kneel down but he is able to bend it. He had an upper endoscopy on 02/12/[address] Suggs. Did not reveal any residual cancer. He is on a new medication for diabetes. It does appear to be helping. Blood sugars are in the range of 118-120. He is in good spirits. Rest of the review of systems is unremarkable. He tells me he has some blood vessels growth in his eyes. He is under the care of [facility] in [place]. They are monitoring it for now. He denies any major visual complaints. Interim history: He was noted to be rather anemic. He required blood transfusion. He underwent an upper endoscopy and colonoscopy on 09/[address] Suggs. Results: UPPER ENDOSCOPY: Esophagus: The esophagus showed changes consistent with radiation therapy over the lower 1/3 with small areas of petechiae measuring 1-2 mm. There was no evidence of recurrent adenocarcinoma at the EG junction. No biopsies were obtained due to the patient's history of esophageal varices and thrombocytopenia. No varices were seen. Stomach: The stomach showed no evidence of masses or ulcers. There were 2 polyps present at the antrum near the pyloric channel. These had been seen on prior examinations and they were re-biopsied. The largest measured approximately 15 mm x 20 mm. Duodenum: The bulb and second portion were normal. COLONOSCOPY: The terminal ileum was normal. The prep was excellent. There was an 8 mm nonbleeding AVM on the ileocecal valve. No other AVMs were identified. No polyps were seen. Retroflexed examination showed moderate-sized internal hemorrhoids. IMPRESSION: 1. Radiation changes to the lower esophagus. 2. Gastric polyps. 3. Colonic arteriovenous malformation. RECOMMENDATION: 1. Follow up the biopsy results. 2. Repeat colonoscopy is recommended in 10 years for average risk individuals. 3. Continue present therapy. Previous history: He completed re irradiation in May. He tolerated it well for the most part. He did not develop any swallowing difficulty however he did end up with a cold and a cough which lasted about 5 weeks. It has resolved now. He had a stroke several months ago. He went through a course physical therapy. He still has residual right upper extremity weakness. He is trying to stay active. He does yard work at home. He denies any dysphagia or odynophagia. Review of Systems - Constitutional Reports no additional constitutional complaints - Eyes Reports no additional eye complaints - ENT Reports no additional ear, nose, mouth, and throat complaints - Cardiovascular Reports no additional cardiovascular complaints - Respiratory Reports no additional respiratory complaints - Gastrointestinal Reports no additional gastrointestinal complaints - Genitourinary Genitourinary: Reports no additional male genitourinary complaints - Musculoskeletal Reports no additional musculoskeletal complaints - Integumentary/Breasts Skin/Breast: Reports no additional skin complaints - Neurologic Reports no additional neurologic complaints, Reports abnormal gait, Denies frequent falls, Reports focal weakness, Denies weakness - Psychiatric Reports no additional psychiatric complaints - Endocrine Reports no additional endocrine complaints - Hematologic/Lymphatic Reports no additional hematologic/lymphatic complaints - Allergic/Immunologic Reports no additional allergic/immunologic complaints [facility] Medical History: Medical History (Last Reviewed 07/28/24 @ 09:25 by Ayde Jurado) Adenocarcinoma of lower esophagus Alcoholic cirrhosis Anemia Constipation Diabetes Elevated ferritin Esophageal varices Esophagus, carcinoma Hepatic cirrhosis Hepatitis C History of blood transfusion History of GI bleed Onset Date: ~2017 Hx of splenomegaly Hyperlipidemia LDL goal <70 Male circumcision Seizure disorder Stroke Thrombocytopenia Type 2 diabetes mellitus with diabetic polyneuropathy Type 2 diabetes mellitus with hyperglycemia Wears dentures Functional capacity: independent ambulation Family History: Family History (Last Reviewed 07/28/24 @ 09:25 by Ayde Jurado) Father No problems noted. Mother Diabetes mellitus Surgical History: Surgical History (Last Reviewed 07/28/24 @ 09:25 by Ayde Jurado) History of surgery on lower extremity Onset Date: ~2003 Hx of circumcision Hx of colonoscopy Onset Date: 08/2021 Hx of endoscopy Onset Date: 08/2021 S/P percutaneous endoscopic gastrostomy (PEG) tube placement S/P transjugular intrahepatic portosystemic shunt Onset Date: ~2017 Social History: Social History (Last Reviewed 07/28/24 @ 09:25 by Ayde Jurado) Living Situation History: Household Members: Spouse Household Members Other:: Spouse: Antoni Housing: House Are you a primary hiv/aids care nurse to a significant other at home: No Do you presently have visiting nurse or other home services: No Alcohol History Details: 1. How often do you have a drink containing alcohol?: a. Never Tobacco History: Patient Tobacco Use Status: Former Tobacco user Tobacco use type: Cigarette Years Smoked: 10 Smoked in Last 30 Days: No Smoking End Date: 11/19/23 e-Cigarette/Vaping Use: Never Used Second Hand Smoke Exposure: No Substance Use History: Use of substances other than those prescribed or required for medical reasons : No Domestic Abuse History: Have you been hit, kicked, punched, or otherwise hurt by someone within the past year? If so, by whom?: No Do you feel safe in your current relationship?: Yes Advance Directives: Advance Directives: No Advance Directives Information Provided: No Advance Directives Date on File: 01/28/21 Homicidal Assessment: Do you have thoughts of harming others: None Do you have a plan to hurt others: No Plan Do you have the means to hurt others: No Nutrition Assessment: Recently lost weight without trying: No Patient : No Occupation Assessmet: service: No Current occupational status: disabled Oncology Screenings - ECOG Performance Status ECOG Performance Status: 0 Home Medications and Allergies Home Medications ?Medication ?Instructions ?Recorded ?Confirmed ?Type lancets 33 gauge #100 ea 08/15/20 07/28/24 History pen needle, diabetic 31 gauge x #1,200 ea 08/15/20 07/28/24 History 5/16 ondansetron 8 mg disintegrating 8 mg PO Q8H PRN Nausea And Vomiting 06/16/24 07/28/24 History tablet acetaminophen 325 mg tablet 650 mg PO Q6H PRN Pain (Scale 06/24/24 07/28/24 History Score 1-3) magnesium oxide 400 mg feeding tube BIDPC 06/24/24 07/28/24 History pantoprazole 40 mg intravenous 40 mg IV BID 06/24/24 07/28/24 History solution (Protonix) Allergies Allergy/AdvReac Type Severity Reaction Status Date / Time No Known Allergies Allergy Verified 07/28/24 09:25 Exam Vital signs: Vital Signs Temp 97.7 F 06/14/24 10:27 Pulse 112 H 07/11/24 11:31 Resp 18 06/14/24 10:27 BP 107/66 07/11/24 11:31 Pulse Ox 96 07/11/24 11:31 O2 Del Method Room Air 07/11/24 11:31 Weight 74.4 kg BMI result Body Mass Index 25.7 - Constitutional Present: no acute distress - Routine HEENT Exam Head: Present: normal inspection Eye: Present: normal appearance ENT: Present: mucous membranes moist - Routine Neck Exam Present: full ROM - Routine Respiratory Exam Present: CTAB - Routine Cardiovascular Exam Cardiovascular: Present: RRR, S1, S2 - Routine Abdominal Exam Present: soft, nontender - Routine Extremities Exam Present: joint swelling, nontender - Routine Back/Spine/Pelvis Exam Back/Spine: Present: full ROM - Routine Skin Exam Present: intact - Routine Neurological Exam Present: alert, oriented X3 - Detailed Neurological Exam: Coma Scale Eye Opening: Spontaneous (4) - Routine Psychiatric Exam Present: normal affect Data - Labs CBC & Chem 7: 07/28/24 08:49 07/28/24 08:49 - Imaging Radiologist's impression: ITS Impressions Knee X-Ray 12/31/21 13:49 IMPRESSION: Mild osteopenia. No visible acute fracture, dislocation or subluxation seen. Assessment and Plan Patient Active problem list reviewed?: Yes (1) Adenocarcinoma of lower esophagus Status: Acute Assessment and plan: This is a pleasant, 59 year-old gentleman with history of Hepatitis C, Esophageal Adenocarcinoma. He completed combined modality therapy with radiation plus chemotherapy, in August of 2017. CT chest with contrast performed 10/22/17 showed wall thickening of the distal thoracic esophagus, enlarged paraesophageal varices, no enlarged hilar or mediastinal lymph nodes, enlarged spleen and mild upper abdominal lymphadenopathy, largest lymph node in the periportal region measuring 1.5x1.3 cm. Also a nonspecific 1 cm lucent lesion in the superior endplate of T7 would whole-body, ? metastasis. Several nonspecific lytic lesions in the thoracic and visualized upper lumbar vertebral bodies questionable for possible metastatic disease. He denies any dysphagia or odynophagia. Routine endoscopy reveals disease recurrence, with a 2 cm mass just below the EG junction. Pathology confirms: Moderately differentiated Adenocarcinoma. A PET scan, was denied. CT scan of the chest from November 24 revealed: 1. No pulmonary nodule, mass or groundglass opacity is seen. 2. There is no thoracic lymphadenopathy. 3. There is are cirrhotic changes of the liver redemonstrated, without focal mass seen. 4. There is interim placement of a portocaval shunt. The splenic and mesenteric veins appear patent. Upper abdominal varices are less pronounced than seen. 5. There is stable wall thickening of the gastroesophageal junction. 6. No abdominopelvic metastasis, free fluid or lymphadenopathy is seen. Unfortunately, he is really not a surgical candidate. He has already had radiation therapy so that is not an option. He underwent an endoscopic ultrasound to evaluate for the thickness of the tumor, and possible adenopathy. This was done on January [address] Elizabet Gilliam. Findings: Endoscopy revealed a 1.5-2 cm GE junction mass, that appeared to be semi pedunculated. Evidence of mild portal hypertensive gastropathy in the stomach. Two small polyps noted in the stomach 1 in the gastric body and other just proximal to the pyloric sphincter. Polyps appeared reactive. Endoscopic ultrasound: Tumor was hypoechoic 1.8 x 1.4 cm, likely T1b, and 0. The MP was intact. Small varices noted in the submucosa. No aortic nor vertebral invasion. Normal celiac takeoff. No obvious lesion in the liver. Normal appearing pancreatic duct. The plan initially was to proceed with photodynamic therapy. That will help to avoid systemic chemotherapy. He has seen Dr. Lucio Mo, at [facility]. His note mentions: Endosonographically, stage T1b. This is a difficult situation. Locally recurrent GE junction adenocarcinoma already subjected to 50 Gy of radiation. He has no regional nor distant metastatic disease. Ideally surgical resection should be done but his comorbidities that too significant to allow for a safe surgery. Endoscopic submucous ectomy still relatively early in the evolution of the technique and since this lesions pans 2.5 cm in longitudinal dimension that may be too much for endoscopic resection. We have to consider other local ablative modalities to take care of this recurrence. He was given a couple of options: 1. Photodynamic therapy. 2. Brachytherapy. He would favor brachy therapy, since his visceral disease is worrisome, in regards to the bleeding from his variceal disease. That would be more of a risk with photodynamic therapy. (he is not in favor of having to hide from light for 4-6 weeks if he undergoes photodynamic therapy.) Overall the safety profile of brachytherapy would be higher than photodynamic therapy. It also has a better track record. I called the Radiation Oncology Department at [facility] to expedite his appointment for brachy therapy there. D/W Radiation therapist at [facility]. They are recommending re-irradiation. I had discussed with Dr. Sarmiento at [facility], to set it up here, for his convenience. His appointment was on April 12. She did discussed the option of endoscopic resection with the surgeon however they were not keen on it on account of his history of varices. He had a PET scan done, on 05/11/2020 at [facility] which revealed: Focal area of distal esophageal wall thickening with mildly increased activity, SUV max of 5.5. No findings suggestive of distal metastatic disease. He was then referred to Dr. Sarmiento. He completed re-irradiation at [facility], few months ago. He had repeat upper endoscopy by Dr. Suggs, on 09/25. This revealed: Esophagus: The esophagus showed changes consistent with his prior radiation therapy. There was a nodular area just below the EG junction with some inflammatory change. This was biopsied. There were no visible esophageal varices or gastric varices. Stomach: The stomach showed no evidence of masses or ulcers. The previously identified gastric polyps were present. They appeared unchanged from his prior examination. Biopsies were obtained from the gastric polyps. Duodenum: The bulb and second portion were normal. 1. Adenocarcinoma of the EG junction, status post biopsy. 2. Gastric polyps. Unfortunately, the biopsy results revealed: Ulcerated cardiac type mucosa with high-grade dysplasia/in Situ adenocarcinoma. No squamous epithelium seen. This could be residual after radiation and may disappear with the tincture of time. However there is no invasive component, for which any medical treatment could be recommended. He had a left CVA with right-sided weakness. He had PT done. He still has residual right upper extremity weakness but otherwise doing well. Denies any GI complaints. Ultrasound of the abdomen from 02/14/21 revealed: Fatty infiltration of the liver. Patent TIPS. Splenomegaly. He had an upper endoscopy on the 02/12/[address] Suggs which revealed: No evidence of recurrent adenocarcinoma at the EG junction. He has pancytopenia likely related to his liver disease and cirrhosis. His blood count had dropped significantly, at his last visit even though he was not very symptomatic. At his visit on 08/15/21, his hemoglobin went down to 7.2. Iron studies: 20/458/4/6. B12 452. Folate 11.2. Concern was for disease recurrence versus another source of GI blood loss. He was given 2 units of packed RBCs. He underwent an upper endoscopy on 09/[address] Suggs. This revealed a findings consistent with radiation esophagitis/gastritis. Pathology revealed: Polypoid foveolar hyperplasia with chronic active gastritis, negative for H pylori, intestinal metaplasia and dysplasia. The colonoscopy was negative. He was advised to take the proton pump inhibitor twice a day and at Carafate however he did not take the Carafate. He was taking oral iron. Hemoglobin from September 13 was 9.6. 01/03, his hemoglobin is 15.7. It was 14.4, in October. This is reassuring. On 12/27, he fell down and injured his right knee. l proceeded with an x-ray of the knee. This did not reveal any fracture. His knee is all better. He injured his back. CT scan of the T-spine from 11/04 revealed: Stable appearance to the moderate T7 vertebral body compression fracture from September 2023 thoracic spine MRI. There is lucency adjacent to the fracture lines and overall increased sclerosis of the vertebral body. Given history of esophageal cancer, possible pathologic fracture should be considered. Increased sclerosis is likely related to postradiation changes. He underwent a kyphoplasty on 11/22. He still has residual pain. He has recently has had dysphagia to solids. Upper endoscopy on 01/18, by Dr. Suggs. This revealed: Esophagus: The distal esophagus showed a 5 cm area of ulceration with masslike effect consistent with possible recurrence of his adenocarcinoma. Biopsies were carefully obtained from the distal esophagus. There were no esophageal varices identified. Stomach: The stomach showed no evidence of masses or ulcers. Retroflexed examination showed no mass lesion extending below the EG junction. Pathology revealed: Superficial fragments of adenocarcinoma, moderately differentiated. His CBC: WBC 6.4, Hemoglobin is 15.2. PLT 90. LFTs are normal. He had a CT scan of the chest abdomen pelvis on 02/16, which revealed: 1. Marked thickening of the distal esophagus beginning below the level of the itzel down to the GE junction suspicious for recurrent esophageal carcinoma. 2. No evidence of metastatic disease in the chest, abdomen or pelvis. 3. Cirrhotic liver with patent TIPS and splenomegaly. His pathology did show PD-L1 positivity with a CPS score of 5. He was deemed a candidate for pembrolizumab, based therapy. He was started on it, on 03/01. 06/20, He had cycle #4. He tolerated the 1st 3 cycles well. CEA: 2.20. Subsequently, he called mentioning that he was not able to swallow food. He was advised to go into the hospital. A G-tube placement was attempted. However the scope did not pass through. He then had a gastrostomy tube placed surgically. He is now receiving tube feedings. It appears that he stopped responding to the pembro. Further options are limited, in view of his poor reserve due to thrombocytopenia. He could possibly have received palliative radiation, although he has had radiation twice in the past. Last time was in 2020. I got an opinion from Dr. Santillan from [facility], however she felt there was no more room for more radiation. I discussed with him and his the option of palliative chemotherapy with Carboplatin and Taxane. I was concerned about underlying pancytopenia, from liver disease, however, his blood count appears to have improved. PLAN: I will now treat him with palliative chemotherapy, with weekly Carbo/Abraxane. I will give him low-dose oxycodone to help with the pain and insomnia. He will return in a week for chemo teaching and to get started. His tube feedings are due. We called the company to get it delivered in a timely manner. Also advised them to increase the protein content, so he could gain some weight. Thank you, CC: Dr. Gray. Dr. Nikki Acevedo. Dr. Suggs. Dr. Mo. - Time Spent With Patient Time Spent with Patient (in minutes): 25
[2024-07-28 08:51] LABS: MANUAL DIFF FLAG NO
[2024-07-28 08:56] LABS: Basophils Percent Auto 0.5 % (0-2); Eosinophils Absolute Auto 0.2 X10*3/uL (0.0-0.4); Eosinophils Percent Auto 2.8 % (0-4); Hematocrit 41.2 % (42.0-52.0); Hemoglobin 13.9 g/dl (14.0-18.0); Imm Gran Abs Auto 0.02 X10*3/uL (0.00-0.03); Imm Gran Pct Auto 0.3 % (0.0-0.4); Lymphocytes Absolute Auto 0.7 X10*3/uL (1.2-4.9); Lymphocytes Percent Auto 8.5 % (20-40); Mean Corpuscular HGB Conc 33.7 g/dl (31.0-36.0); Mean Corpuscular Hemoglobin 30.8 pg (27.0-33.0); Mean Corpuscular Volume 91.4 fL (80.0-98.0); Mean Platelet Volume 10.3 fL (9.4-12.4); Monocytes Absolute Auto 0.7 X10*3/uL (0.1-1.2); Monocytes Percent Auto 8.8 % (2-11); Neutrophils Absolute Auto 6.2 x10*3/uL (2.0-8.3); Neutrophils Percent Auto 79.1 % (45-73); Red Blood Count 4.51 X10*6/uL (4.60-5.80); Red Cell Distribution Width 14.1 % (11.0-16.0); White Blood Count 7.8 X10*3/uL (4.8-10.8)
[2024-07-28 09:02] LABS: Platelet Count 91 X10*3/uL (160-400)
[2024-07-28 09:21] LABS: Alanine Aminotransferase 26 U/L (0-40); Albumin Level 3.3 g/dL (3.5-5.0); Alkaline Phosphatase 163 U/L (39-117); Anion Gap 10 (12-20); Aspartate Amino Transferase 47 U/L (5-37); Bilirubin Total 0.9 mg/dL (0.0-1.0); Blood Urea Nitrogen 19 mg/dL (9-16); Calcium 9.2 mg/dL (8.4-10.2); Carbon Dioxide 25 mmol/L (22-29); Chloride 105 mmol/L (96-108); Creatinine Clr Calc Pharmacy 107.1; Estimated Glomerular Filt Rate > 60; Glucose Random 191 mg/dL (60-115); Potassium 4.2 mmol/L (3.3-5.1); Sodium 136 mmol/L (135-145); Total Protein 7.1 g/dL (6.5-8.0)
[2024-07-28 09:26] VITALS: BP 117/74; PULSE 99; TEMP 37.2; O2SAT 98; BMI 25.2
--- NOTE | 2024-07-28 11:32 | MHC.HEMONC ---
Triage: Patient in for follow up with Dr. Crawford. Dr. Crawford asked this nurse to call [facility] ( ) to speak to customer support technician regarding current g-tube feeding orders and possibility to increase strength or calories as patient continues to lose weight. This nurse spoke to sales representative adding machines, who will relay message to customer support technician. Awaiting callback. Patient will be starting a new treatment: Abraxane/Carbo weekly. Chemotherapy teach appt scheduled for Tuesday 08/01 at 1500. Calender provided.
--- NOTE | 2024-07-28 17:10 | MHC.HEMONCMA ---
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 PT will call to schedule follow up with provider.
--- NOTE | 2024-08-01 16:44 | MHC.HEMONC ---
Pt here for chemo teach for Ramucirumab/Paclitaxel. Pt not new to chemo. Medications and treatment plan reviewed. Potential side effects reviewed with patient, see Flow sheet. Pt verbalized understanding. Pharmacy Emailed with new treatment meds. Treatment plan given to Abby for PA. First chemo treatment will need to be booked pending PA and patient notified.
--- NOTE | 2024-08-04 11:29 | MHC.HEMONC ---
Nurse called [facility] # Voice mail left for return call from [employer] asking to have calories/protien in G-tube feedings increased due to weight loss. Waiting for call back.
[2024-08-05 10:45] VITALS: BP 124/75; PULSE 117; RESP 20; TEMP 36.7; O2SAT 95
--- NOTE | 2024-08-05 10:47 | PM.HEMONCPN ---
Medical Summary - Medical Summary Date of Service: 08/05/24 Chief complaint: Worsening abdominal pain, nausea and vomiting Primary Care Provider: Nikhil Gray [facility] Medical Summary: Diagnosis: Adenocarcinoma of the esophagus, of the lower end. Current Therapy: 1. Combined modality therapy with radiation along with weekly carboplatin and Taxol, had 4 weeks, Completed 08/21/2017. 2. Had disease recurrence, seen at the EG junction on endoscopy on October 27, 2020. Completed re- radiation, 07/04/20. RECURRENT CARCINOMA OF THE ESOPHAGUS. Started on pembrolizumab on 03/01. Had cycle 4 on 06/20/24. Crna Utilized?: No - Latvian Speaking Interval History Interval history: This is a pleasant 64 year-old gentleman, here for a follow-up visit. He was in house between 06/16 and 06/24. Discharge summary: 62-year-old male with a past medical history of adenocarcinoma of the lower esophagus, type 2 diabetes, cirrhosis status post TIPS procedure, seizure disorder on Keppra who presented to the ER with progressive dysphagia and odynophagia. Pt is actively receiving chemotherapy. He reports that over the last several weeks he has lost 10-20 lb as he has been unable to consume anything by mouth. Reports dysphagia to even liquids. He reports odynophagia to liquids as well. He states at times he has regurgitated his medications which are taken the day before. Due to ongoing difficulty with this, the patient was advised to come to the emergency room by his oncologist. In the ED the patient's blood work showed signs of dehydration with an elevated BUN and elevated bicarb indicative of contraction alkalosis. The patient has been given 1 L of IV fluids. He has been seen in consultation by his GI, Dr. Suggs with plans for PEG tube insertion. The possibility of surgical feeding tube insertion remains large given his presenting dysphagia even to liquids. hospital course: Patient was admitted for odynophagia and dysphagia due to recurrence of esophageal cancer complicated by moderate protein calorie malnutrition. 06/17, Pt underwent EGD which revealed recurrent mass in the lower esophagus. However scope could not be passed through it. It was biopsied and showed recurrent adenocarcinoma. A PEG tube could not be placed. 06/20/2024, he underwent a surgical G-tube by Dr. Sahu. He was then started on feeds and is tolerated bolus feeds. We will continue bolus feeds at home. For cirrhosis complicated by chronic thrombocytopenia he remained stable. For acute hypokalemia and acute hypophosphatemia he received replacement. For diabetes was monitored with point of cares. For seizure disorder he was continued on Keppra. Patient will be discharged home. He is now receiving tube feedings, has VNA services in place. It appears that he stopped responding to the pembro. Further options are limited, in view of his poor reserve due to thrombocytopenia. He could possibly have received palliative radiation, although he has had radiation twice in the past. Last time was in 2020. I got an opinion from Dr. Santillan from [facility], however she felt there was no more room for more radiation. I discussed with him and his the option of palliative chemotherapy with Carboplatin and Taxane. I was concerned about underlying pancytopenia, from liver disease, however, his blood count appears to have improved. I will now treat him with palliative chemotherapy, with weekly Carbo/Abraxane. [08/05/24] Today, patient called office reporting severe abdominal pain, gradually worsening abdominal distention, nausea, vomiting. Patient voiced suicidal ideations, stated he is thinking of killing himself due to persistent severe abdominal pain This is new for patient, no prior history of severe depression. Patient called from home with spouse present and aware of both physical complaints as well as suicidal ideations. Patient agreed to be seen in the office. Reported gradually worsening abdominal distention, pain, nausea or vomiting. Denies pain relief with Tylenol and Advil. He states he ran out of oxycodone sometime ago. However, oxycodone was not providing significant relief either. Denies difficulty with tube feedings via gravity. States able to have 6-7 tube feedings in 24 hour perioid, but the nausea and vomiting persists and is hard to ascertain if tube feedings are making it worse as it appears to occur sporadically before and after feedings. Emesis is yellow to brown. No gilma blood or obvious coffee-ground emesis. Denies melena or bright red blood per rectum. Stools are on a looser side, denies watery diarrhea. Reports fatigue, denies fevers. Importance of prompt evaluation of present gastrointestinal symptoms, pain, as well as for evaluation of mentioned suicidal ideations were discussed with patient and his spouse. Patient agreed to go to the ER for further evaluation and management. This provider called report to attending provider at the emergency department. We will closely follow this patient. INTERIM HISTORY: He had dysphagia symptoms, mostly to solids. Upper endoscopy on 01/18, by Dr. Suggs. This revealed: Esophagus: The distal esophagus showed a 5 cm area of ulceration with masslike effect consistent with possible recurrence of his adenocarcinoma. Biopsies were carefully obtained from the distal esophagus. There were no esophageal varices identified. Stomach: The stomach showed no evidence of masses or ulcers. Retroflexed examination showed no mass lesion extending below the EG junction. Pathology revealed: Superficial fragments of adenocarcinoma, moderately differentiated. He still has ongoing swallowing issues. This is more to solids. He is able to swallow a soft diet including rice and pasta. He has lost weight. He was 220 lb and now down to 185. PREVIOUS HISTORY: He tells me he has had back pain. This started after he was using a sledgehammer. 4?22: MRI of the spine revealed: 1. Subacute T7 upper endplate impaction fracture with similar approximately 50% height loss and anterior wedging compared to radiograph from 08/24/2023. 2. Marrow signal abnormality throughout the thoracic spinal column as above that be correlated for history of prior radiation therapy with radiation induced fatty marrow signal change in the midthoracic spine likely on a background of diffuse osteopenia. 3. Cirrhotic hepatic morphology and splenomegaly. Soft tissue thickening in the region of the distal esophagus, better characterized on prior PET from 12/03/2017. He actually underwent a kyphoplasty on 11/22 by interventional radiology. INTERIM HISTORY: On 04/14 he was seen in the ER: 61-year-old male with history of type 2 diabetes, HTN, seizures, adenocarcinoma of the esophagus who presents to the ER for evaluation of a left thumb injury, through and through injury with a drill bit. X-ray reviewed and does not appear to have bony involvement. He has normal function of all tendons. No sensory deficit. No active bleeding. The wound was soaked in Betadine, saline, Hydrogen peroxide combination for antiseptic affect. Will prescribe prophylactic antibiotics to prevent infection. Tdap given. Patient counseled on wound care and return precautions. He is stable for discharge home. He was seen by Dr. Suggs on 04/02/22: Upper endoscopy in August showed no evidence of recurrence of his esophageal adenocarcinoma. Gastric polyp biopsy showed polypoid foamy hyperplasia chronic active gastritis and no H pylori. He continues on the Protonix 40 mg. With respect to his liver disease ultrasound earlier this year showed patent tips shunt without focal liver lesion. No varices were noted on endoscopy in August. Radiation changes were seen. Colonoscopy showed a nonbleeding 8 mm avium on the ileocecal valve and hemorrhoids. His anemia has resolved with iron supplementation. No endoscopy was recommended at that time. Previous history: He had fallen over the weekend. They had a yd sale at their home. He just tripped. Since then he had pain in his right knee. He has some abrasions there. He has a hard time walking. l proceeded with an x-ray of the knee on 01/03: Mild osteopenia. No visible acute fracture, dislocation or subluxation seen. He tells me his knee is much better now. He cannot kneel down but he is able to bend it. He had an upper endoscopy on 02/12/[address] Suggs. Did not reveal any residual cancer. He is on a new medication for diabetes. It does appear to be helping. Blood sugars are in the range of 118-120. He is in good spirits. Rest of the review of systems is unremarkable. He tells me he has some blood vessels growth in his eyes. He is under the care of [facility] in [place]. They are monitoring it for now. He denies any major visual complaints. Interim history: He was noted to be rather anemic. He required blood transfusion. He underwent an upper endoscopy and colonoscopy on 09/[address] Suggs. Results: UPPER ENDOSCOPY: Esophagus: The esophagus showed changes consistent with radiation therapy over the lower 1/3 with small areas of petechiae measuring 1-2 mm. There was no evidence of recurrent adenocarcinoma at the EG junction. No biopsies were obtained due to the patient's history of esophageal varices and thrombocytopenia. No varices were seen. Stomach: The stomach showed no evidence of masses or ulcers. There were 2 polyps present at the antrum near the pyloric channel. These had been seen on prior examinations and they were re-biopsied. The largest measured approximately 15 mm x 20 mm. Duodenum: The bulb and second portion were normal. COLONOSCOPY: The terminal ileum was normal. The prep was excellent. There was an 8 mm nonbleeding AVM on the ileocecal valve. No other AVMs were identified. No polyps were seen. Retroflexed examination showed moderate-sized internal hemorrhoids. IMPRESSION: 1. Radiation changes to the lower esophagus. 2. Gastric polyps. 3. Colonic arteriovenous malformation. RECOMMENDATION: 1. Follow up the biopsy results. 2. Repeat colonoscopy is recommended in 10 years for average risk individuals. 3. Continue present therapy. Previous history: He completed re irradiation in May. He tolerated it well for the most part. He did not develop any swallowing difficulty however he did end up with a cold and a cough which lasted about 5 weeks. It has resolved now. He had a stroke several months ago. He went through a course physical therapy. He still has residual right upper extremity weakness. He is trying to stay active. He does yard work at home. He denies any dysphagia or odynophagia. Review of Systems - Constitutional Reports as per HPI - Cardiovascular Denies chest pain, Denies rapid, pounding, or irregular heartbeat - Respiratory Denies cough, Denies dyspnea - Gastrointestinal Reports abdominal pain, Denies black, tarry stools, Denies bright, red blood in stools, Reports nausea, Reports vomiting Comments: Reports worsening abdominal distention over the last couple weeks. - Neurologic Reports no additional neurologic complaints, Reports frequent falls, Reports weakness - Psychiatric Reports thoughts of hurting/killing yourself - Endocrine Reports fatigue [facility] Medical History: Medical History (Last Reviewed 08/05/24 @ 11:10 by Erma Macdonald NP) Adenocarcinoma of lower esophagus Alcoholic cirrhosis Anemia Constipation Diabetes Elevated ferritin Esophageal varices Esophagus, carcinoma Hepatic cirrhosis Hepatitis C History of blood transfusion History of GI bleed Onset Date: ~2017 Hx of splenomegaly Hyperlipidemia LDL goal <70 Male circumcision Seizure disorder Stroke Thrombocytopenia Type 2 diabetes mellitus with diabetic polyneuropathy Type 2 diabetes mellitus with hyperglycemia Wears dentures Functional capacity: independent ambulation Family History: Family History (Last Reviewed 07/28/24 @ 09:25 by Ayde Jurado) Father No problems noted. Mother Diabetes mellitus Surgical History: Surgical History (Last Reviewed 07/28/24 @ 09:25 by Ayde Jurado) History of surgery on lower extremity Onset Date: ~2003 Hx of circumcision Hx of colonoscopy Onset Date: 08/2021 Hx of endoscopy Onset Date: 08/2021 S/P percutaneous endoscopic gastrostomy (PEG) tube placement S/P transjugular intrahepatic portosystemic shunt Onset Date: ~2017 Social History: Social History (Last Reviewed 07/28/24 @ 09:25 by Ayde Jurado) Living Situation History: Household Members: Spouse Household Members Other:: Spouse: Antoni Housing: House Are you a primary child care provider to a significant other at home: No Do you presently have visiting nurse or other home services: No Tobacco History: Patient Tobacco Use Status: Former Tobacco user Tobacco use type: Cigarette Years Smoked: 10 Smoking End Date: 11/19/23 e-Cigarette/Vaping Use: Never Used Second Hand Smoke Exposure: No Advance Directives: Advance Directives Date on File: 01/28/21 Occupation Assessmet: service: No Current occupational status: disabled Home Medications and Allergies Home Medications ?Medication ?Instructions ?Recorded ?Confirmed ?Type lancets 33 gauge #100 ea 08/15/20 07/28/24 History pen needle, diabetic 31 gauge x #1,200 ea 08/15/20 07/28/24 History 5/16 ondansetron 8 mg disintegrating 8 mg PO Q8H PRN Nausea And Vomiting 06/16/24 07/28/24 History tablet acetaminophen 325 mg tablet 650 mg PO Q6H PRN Pain (Scale 06/24/24 07/28/24 History Score 1-3) magnesium oxide 400 mg feeding tube BIDPC 06/24/24 07/28/24 History pantoprazole 40 mg intravenous 40 mg IV BID 06/24/24 07/28/24 History solution (Protonix) Allergies Allergy/AdvReac Type Severity Reaction Status Date / Time No Known Allergies Allergy Verified 07/28/24 09:25 Exam Vital signs: Vital Signs Temp 99.0 F 07/28/24 09:26 Pulse 99 07/28/24 09:26 Resp 18 06/14/24 10:27 BP 117/74 07/28/24 09:26 Pulse Ox 98 07/28/24 09:26 O2 Del Method Room Air 07/28/24 09:26 Weight 73 kg BMI result Body Mass Index 25.2 - Constitutional Present: moderate distress - Routine HEENT Exam Head: Present: normal inspection Eye: Present: normal appearance - Routine Neck Exam Present: full ROM - Routine Respiratory Exam Present: CTAB. Absent: accessory muscle use - Routine Cardiovascular Exam Cardiovascular: Present: RRR, S1, S2 - Routine Abdominal Exam Present: distended, hyperactive bowel sounds - Routine Extremities Exam Present: normal inspection. Absent: pedal edema - Routine Back/Spine/Pelvis Exam Back/Spine: Present: full ROM - Routine Skin Exam Present: intact, dry, warm - Routine Neurological Exam Present: alert, oriented X3 - Detailed Neurological Exam: Coma Scale Eye Opening: Spontaneous (4) - Routine Psychiatric Exam Present: suicidal ideation Data - Labs CBC & Chem 7: 07/28/24 08:49 07/28/24 08:49 - Imaging Radiologist's impression: ITS Impressions Knee X-Ray 12/31/21 13:49 IMPRESSION: Mild osteopenia. No visible acute fracture, dislocation or subluxation seen. Assessment and Plan Patient Active problem list reviewed?: Yes (1) Adenocarcinoma of lower esophagus Status: Acute Assessment and plan: This is a pleasant, 59 year-old gentleman with history of Hepatitis C, Esophageal Adenocarcinoma. He completed combined modality therapy with radiation plus chemotherapy, in August of 2017. CT chest with contrast performed 10/22/17 showed wall thickening of the distal thoracic esophagus, enlarged paraesophageal varices, no enlarged hilar or mediastinal lymph nodes, enlarged spleen and mild upper abdominal lymphadenopathy, largest lymph node in the periportal region measuring 1.5x1.3 cm. Also a nonspecific 1 cm lucent lesion in the superior endplate of T7 would whole-body, ? metastasis. Several nonspecific lytic lesions in the thoracic and visualized upper lumbar vertebral bodies questionable for possible metastatic disease. He denies any dysphagia or odynophagia. Routine endoscopy reveals disease recurrence, with a 2 cm mass just below the EG junction. Pathology confirms: Moderately differentiated Adenocarcinoma. A PET scan, was denied. CT scan of the chest from November 24 revealed: 1. No pulmonary nodule, mass or groundglass opacity is seen. 2. There is no thoracic lymphadenopathy. 3. There is are cirrhotic changes of the liver redemonstrated, without focal mass seen. 4. There is interim placement of a portocaval shunt. The splenic and mesenteric veins appear patent. Upper abdominal varices are less pronounced than seen. 5. There is stable wall thickening of the gastroesophageal junction. 6. No abdominopelvic metastasis, free fluid or lymphadenopathy is seen. Unfortunately, he is really not a surgical candidate. He has already had radiation therapy so that is not an option. He underwent an endoscopic ultrasound to evaluate for the thickness of the tumor, and possible adenopathy. This was done on January [address] Elizabet Gilliam. Findings: Endoscopy revealed a 1.5-2 cm GE junction mass, that appeared to be semi pedunculated. Evidence of mild portal hypertensive gastropathy in the stomach. Two small polyps noted in the stomach 1 in the gastric body and other just proximal to the pyloric sphincter. Polyps appeared reactive. Endoscopic ultrasound: Tumor was hypoechoic 1.8 x 1.4 cm, likely T1b, and 0. The MP was intact. Small varices noted in the submucosa. No aortic nor vertebral invasion. Normal celiac takeoff. No obvious lesion in the liver. Normal appearing pancreatic duct. The plan initially was to proceed with photodynamic therapy. That will help to avoid systemic chemotherapy. He has seen Dr. Lucio Mo, at [facility]. His note mentions: Endosonographically, stage T1b. This is a difficult situation. Locally recurrent GE junction adenocarcinoma already subjected to 50 Gy of radiation. He has no regional nor distant metastatic disease. Ideally surgical resection should be done but his comorbidities that too significant to allow for a safe surgery. Endoscopic submucous ectomy still relatively early in the evolution of the technique and since this lesions pans 2.5 cm in longitudinal dimension that may be too much for endoscopic resection. We have to consider other local ablative modalities to take care of this recurrence. He was given a couple of options: 1. Photodynamic therapy. 2. Brachytherapy. He would favor brachy therapy, since his visceral disease is worrisome, in regards to the bleeding from his variceal disease. That would be more of a risk with photodynamic therapy. (he is not in favor of having to hide from light for 4-6 weeks if he undergoes photodynamic therapy.) Overall the safety profile of brachytherapy would be higher than photodynamic therapy. It also has a better track record. I called the Radiation Oncology Department at [facility] to expedite his appointment for brachy therapy there. D/W Radiation therapist at [facility]. They are recommending re-irradiation. I had discussed with Dr. Sarmiento at [facility], to set it up here, for his convenience. His appointment was on April 12. She did discussed the option of endoscopic resection with the surgeon however they were not keen on it on account of his history of varices. He had a PET scan done, on 05/11/2020 at [facility] which revealed: Focal area of distal esophageal wall thickening with mildly increased activity, SUV max of 5.5. No findings suggestive of distal metastatic disease. He was then referred to Dr. Sarmiento. He completed re-irradiation at [facility], few months ago. He had repeat upper endoscopy by Dr. Suggs, on 09/25. This revealed: Esophagus: The esophagus showed changes consistent with his prior radiation therapy. There was a nodular area just below the EG junction with some inflammatory change. This was biopsied. There were no visible esophageal varices or gastric varices. Stomach: The stomach showed no evidence of masses or ulcers. The previously identified gastric polyps were present. They appeared unchanged from his prior examination. Biopsies were obtained from the gastric polyps. Duodenum: The bulb and second portion were normal. 1. Adenocarcinoma of the EG junction, status post biopsy. 2. Gastric polyps. Unfortunately, the biopsy results revealed: Ulcerated cardiac type mucosa with high-grade dysplasia/in Situ adenocarcinoma. No squamous epithelium seen. This could be residual after radiation and may disappear with the tincture of time. However there is no invasive component, for which any medical treatment could be recommended. He had a left CVA with right-sided weakness. He had PT done. He still has residual right upper extremity weakness but otherwise doing well. Denies any GI complaints. Ultrasound of the abdomen from 02/14/21 revealed: Fatty infiltration of the liver. Patent TIPS. Splenomegaly. He had an upper endoscopy on the 02/12/[address] Suggs which revealed: No evidence of recurrent adenocarcinoma at the EG junction. He has pancytopenia likely related to his liver disease and cirrhosis. His blood count had dropped significantly, at his last visit even though he was not very symptomatic. At his visit on 08/15/21, his hemoglobin went down to 7.2. Iron studies: 20/458/4/6. B12 452. Folate 11.2. Concern was for disease recurrence versus another source of GI blood loss. He was given 2 units of packed RBCs. He underwent an upper endoscopy on 09/[address] Suggs. This revealed a findings consistent with radiation esophagitis/gastritis. Pathology revealed: Polypoid foveolar hyperplasia with chronic active gastritis, negative for H pylori, intestinal metaplasia and dysplasia. The colonoscopy was negative. He was advised to take the proton pump inhibitor twice a day and at Carafate however he did not take the Carafate. He was taking oral iron. Hemoglobin from September 13 was 9.6. 01/03, his hemoglobin is 15.7. It was 14.4, in October. This is reassuring. On 12/27, he fell down and injured his right knee. l proceeded with an x-ray of the knee. This did not reveal any fracture. His knee is all better. He injured his back. CT scan of the T-spine from 11/04 revealed: Stable appearance to the moderate T7 vertebral body compression fracture from September 2023 thoracic spine MRI. There is lucency adjacent to the fracture lines and overall increased sclerosis of the vertebral body. Given history of esophageal cancer, possible pathologic fracture should be considered. Increased sclerosis is likely related to postradiation changes. He underwent a kyphoplasty on 11/22. He still has residual pain. He has recently has had dysphagia to solids. Upper endoscopy on 01/18, by Dr. Suggs. This revealed: Esophagus: The distal esophagus showed a 5 cm area of ulceration with masslike effect consistent with possible recurrence of his adenocarcinoma. Biopsies were carefully obtained from the distal esophagus. There were no esophageal varices identified. Stomach: The stomach showed no evidence of masses or ulcers. Retroflexed examination showed no mass lesion extending below the EG junction. Pathology revealed: Superficial fragments of adenocarcinoma, moderately differentiated. His CBC: WBC 6.4, Hemoglobin is 15.2. PLT 90. LFTs are normal. He had a CT scan of the chest abdomen pelvis on 02/16, which revealed: 1. Marked thickening of the distal esophagus beginning below the level of the itzel down to the GE junction suspicious for recurrent esophageal carcinoma. 2. No evidence of metastatic disease in the chest, abdomen or pelvis. 3. Cirrhotic liver with patent TIPS and splenomegaly. His pathology did show PD-L1 positivity with a CPS score of 5. He was deemed a candidate for pembrolizumab, based therapy. He was started on it, on 03/01. 06/20, He had cycle #4. He tolerated the 1st 3 cycles well. CEA: 2.20. Subsequently, he called mentioning that he was not able to swallow food. He was advised to go into the hospital. A G-tube placement was attempted. However the scope did not pass through. He then had a gastrostomy tube placed surgically. He is now receiving tube feedings. It appears that he stopped responding to the pembro. Further options are limited, in view of his poor reserve due to thrombocytopenia. He could possibly have received palliative radiation, although he has had radiation twice in the past. Last time was in 2020. I got an opinion from Dr. Santillan from [facility], however she felt there was no more room for more radiation. I discussed with him and his the option of palliative chemotherapy with Carboplatin and Taxane. I was concerned about underlying pancytopenia, from liver disease, however, his blood count appears to have improved. I will now treat him with palliative chemotherapy, with weekly Carbo/Abraxane. I will give him low-dose oxycodone to help with the pain and insomnia. He will return in a week for chemo teaching and to get started. [08/05/24] Today, patient called office reporting severe abdominal pain, gradually worsening abdominal distention, nausea, vomiting. Patient voiced suicidal ideations, stated he is thinking of killing himself due to persistent severe abdominal pain This is new for patient, no prior history of severe depression. Patient called from home with spouse present and aware of both physical complaints as well as suicidal ideations. Patient agreed to be seen in the office. Reported gradually worsening abdominal distention, pain, nausea or vomiting. Denies pain relief with Tylenol and Advil. He states he ran out of oxycodone sometime ago. However, oxycodone was not providing significant relief either. Denies difficulty with tube feedings via gravity. States able to have 6-7 tube feedings in 24 hour perioid, but the nausea and vomiting persists and is hard to ascertain if tube feedings are making it worse as it appears to occur sporadically before and after feedings. Emesis is yellow to brown. No gilma blood or obvious coffee-ground emesis. Denies melena or bright red blood per rectum. Stools are on a looser side, denies watery diarrhea. Reports fatigue, denies fevers. Plan: Importance of prompt evaluation of present gastrointestinal symptoms, pain, as well as for evaluation of mentioned suicidal ideations were discussed with patient and his spouse. Patient agreed to go to the ER for further evaluation and management. This provider called report to attending provider at the emergency department. We will closely follow this patient. CC: Dr. Gray. Dr. Nikki Acevedo. Dr. Suggs. Dr. Mo. - Time Spent With Patient Time Spent with Patient (in minutes): 20
[2024-08-05 11:00] VITALS: BMI 26.1
--- NOTE | 2024-08-05 11:36 | MHC.HEMONC ---
Patient called me at 9:30 this morning to let me know that he couldn't take the pain anymore . He said he wants to kill himself . His was in the background. He said he has had worsening bloating of abdomen as well as pain. He said he needs some midicine that will help the pain. He denies being able to sleep. I told him that he needs to come in to be seen by one of our Providers as Dr Crawford is not in today. His said she would bring him within an hour. I spoke with Dr Nash and Cassia Macdonald [facility]. Cassia and I will see pt and likely have him go to ER for his abdominal c/o and w/u as well as to speak with somebody regarding his conversation around suicide earlier on the telephone. When he was here he did say that he said that based on how badly he is feeling but his wept and said h\ he has been saying that to her too. Cassia examined pt and called report to ED and I brought him there by w/c.
--- NOTE | 2024-08-15 14:11 | MHC.HEMONC ---
Pt here with Marleny nurse navigator. G tube dressing saturated. Dr Sahu in room to see pt. Dressing to g tube removed by provider, redressed by this proposal manager writer. Pt scheduled for paracentesis tomorrow at 0700
--- NOTE | 2024-08-17 14:14 | MHC.HEMONC ---
Pt called for refill of pain med: morphine oral solution. TECH WRITER Torres notified and will send refill. Pt notified.
--- NOTE | 2024-08-18 17:17 | MHC.HEMONC ---
Triage call: Patient call- he did not receive Morphine prescription that was sent on 08/17 by KELP GATHERER Jeremy Macdonald. This nurse called [facility] to follow up. Per [facility] pharmacist Morphine is not available and on back order. Pharmacist is not able to tell when this drug will be available again. Dr. Crawford aware. Patient states he is completely out of pain medication. Dr. Crawford ordered increased dose of Oxycodone and Fentanyl patch. 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 Pharmacy stated within the hour. Patient notified. Dr. Crawford recommended for patient to be added to schedule for possible hydration tomorrow. Appt added. Patient reports ongoing diarrhea. stated that supplies for feeding tube have not arrived. Marleny Newtonator notified of above.
--- NOTE | ~2024-08-19 | XR_ITS ---
EXAMINATION: XR KNEE, RIGHT CLINICAL INFORMATION: Right knee injury. Status post fall. COMPARISON: None TECHNIQUE: Four views of the right knee. FINDINGS: The tricompartment joint space is maintained normal. No abnormal joint effusion, loose bodies, or bony erosive changes seen. No visible acute fracture or dislocation. There is mild osteopenia. XR/XR knee RT 4V IMPRESSION: Mild osteopenia. No visible acute fracture, dislocation or subluxation seen.
[2024-08-19 10:39] LABS: Basophils Percent Auto 0.2 % (0-2); Eosinophils Absolute Auto 0.1 X10*3/uL (0.0-0.4); Eosinophils Percent Auto 0.5 % (0-4); Hematocrit 40.8 % (42.0-52.0); Imm Gran Abs Auto 0.21 X10*3/uL (0.00-0.03); Lymphocytes Absolute Auto 1.2 X10*3/uL (1.2-4.9); Lymphocytes Percent Auto 5.8 % (20-40); MANUAL DIFF FLAG SCAN; Mean Corpuscular HGB Conc 34.3 g/dl (31.0-36.0); Mean Corpuscular Hemoglobin 29.5 pg (27.0-33.0); Mean Corpuscular Volume 86.1 fL (80.0-98.0); Mean Platelet Volume 11.1 fL (9.4-12.4); Monocytes Absolute Auto 1.6 X10*3/uL (0.1-1.2); Monocytes Percent Auto 8.2 % (2-11); Neutrophils Absolute Auto 16.9 x10*3/uL (2.0-8.3); Neutrophils Percent Auto 84.3 % (45-73); Red Blood Count 4.74 X10*6/uL (4.60-5.80); Red Cell Distribution Width 14.6 % (11.0-16.0); SCAN SMEAR FLAG 1; White Blood Count 20.1 X10*3/uL (4.8-10.8)
[2024-08-19 10:41] LABS: Platelet Count 86 X10*3/uL (160-400)
[2024-08-19 10:43] VITALS: BP 91/54; PULSE 107; RESP 18; TEMP 36.6; O2SAT 96
[2024-08-19] MEDS: 0.9 % Sodium Chloride 500 ML 150 ML IV (10:45)
[2024-08-19 10:57] LABS: Alanine Aminotransferase 26 U/L (0-40); Albumin Level 2.8 g/dL (3.5-5.0); Alkaline Phosphatase 143 U/L (39-117); Anion Gap 25 (12-20); Aspartate Amino Transferase 47 U/L (5-37); Bilirubin Total 0.9 mg/dL (0.0-1.0); Blood Urea Nitrogen 92 mg/dL (9-16); Calcium 8.7 mg/dL (8.4-10.2); Carbon Dioxide 14 mmol/L (22-29); Chloride 102 mmol/L (96-108); Creatinine Clr Calc Pharmacy 11.4; Estimated Glomerular Filt Rate 9; Glucose Random 378 mg/dL (60-115); Potassium 3.3 mmol/L (3.3-5.1); Sodium 138 mmol/L (135-145); Total Protein 7.4 g/dL (6.5-8.0)
[2024-08-19 11:06] LABS: SLIDE REVIEW VERIFIED
--- NOTE | 2024-08-19 13:04 | MHC.HEMONCSW ---
Addendum entered by Anuj Valenzuela 08/19/24 13:49: We met again with Tj and Antoni in the treatment room. Marleny provided education around the MOLST form, and Antoni signed it on Tj's behalf as he provided verbal consent but was unable to sign on his own. We made copies and provided to Yamilex from hospice social work and provided the original with copies to Antoni. Plan is for him to go to transition inpatient to comfort care at the [facility]. Original Note: Marleny the Nurse Navigator and myself met with his Antoni in our office while he was receiving treatment. I provided active listening and supportive feedback. Marleny spoke with her about next steps as he has been rapidly declining at home and not receiving adequate nutrition from his feeding tube. Antoni was tearful when talking about how he has been unable to function at home and how she has been struggling caring for him and that he appears to get easily frustrated with her at times. She was tearful at times and said she felt she wasn't doing enough. The team provided support and normalized her feelings and challenges. She indicated she would be open to a SNF if needed although was very hesitant due to other family members' negative experiences. Marleny provided education around hospice and comfort care through a hospital admission. She was open to considering these options, and the plan is to discuss with him during treatment today.
--- NOTE | 2024-08-19 15:05 | P.PNHO-ONC_ITS ---
Medical Summary - Medical Summary Date of Service: 08/19/24 Chief complaint: Follow-up for: Carcinoma of the esophagus. Primary Care Provider: CLUADIO Rincon- Medical Summary: Diagnosis: Adenocarcinoma of the esophagus, of the lower end. Current Therapy: 1. Combined modality therapy with radiation along with weekly carboplatin and Taxol, had 4 weeks, Completed 08/21/2017. 2. Had disease recurrence, seen at the EG junction on endoscopy on October 27, 2020. Completed re- radiation, 07/04/20. RECURRENT CARCINOMA OF THE ESOPHAGUS. Started on pembrolizumab on 03/01. Had cycle 4 on 06/20/24. Fuel Quality Tech Utilized?: No - [place] Speaking Interval History Interval history: This is a pleasant 63 year-old gentleman, here for a follow-up visit. Tj is here for an unscheduled visit. His called yesterday that he was not well. He was very weak. The tube feedings were not going in properly. They would either come out from the side of the tube, or he would have diarrhea. It appears that he has taken a turn for the worse. He is quite lethargic and confused. He actually fell yesterday. He has abrasions on his right knee. On questioning he says he has belly pain all over. He feels nauseous. No vomiting. He develops diarrhea right away after the tube feedings are instilled. It flows all over the place. Denies melena or bright red blood per rectum. Denies fevers, nor chills. Denies headache. He feels dizzy. No chest pain or trouble breathing. His spirits are down. Rest of the review of systems is unremarkable. INTERIM HISTORY: He was in house between 06/16 and 06/24/24. Discharge summary: 62-year-old male with a past medical history of adenocarcinoma of the lower esophagus, type 2 diabetes, cirrhosis status post TIPS procedure, seizure disorder on Keppra who presented to the ER with progressive dysphagia and odynophagia. Pt is actively receiving chemotherapy. He reports that over the last several weeks he has lost 10-20 lb as he has been unable to consume anything by mouth. Reports dysphagia to even liquids. He reports odynophagia to liquids as well. He states at times he has regurgitated his medications which are taken the day before. Due to ongoing difficulty with this, the patient was advised to come to the emergency room by his oncologist. In the ED the patient's blood work showed signs of dehydration with an elevated BUN and elevated bicarb indicative of contraction alkalosis. The patient has been given 1 L of IV fluids. He has been seen in consultation by his GI, Dr. Suggs with plans for PEG tube insertion. The possibility of surgical feeding tube insertion remains large given his presenting dysphagia even to liquids. hospital course: Patient was admitted for odynophagia and dysphagia due to recurrence of esophageal cancer complicated by moderate protein calorie malnutrition. 06/17, Pt underwent EGD which revealed recurrent mass in the lower esophagus. However scope could not be passed through it. It was biopsied and showed recurrent adenocarcinoma. A PEG tube could not be placed. 06/20/2024, he underwent a surgical G-tube by Dr. Sahu. He was then started on feeds and is tolerated bolus feeds. We will continue bolus feeds at home. For cirrhosis complicated by chronic thrombocytopenia he remained stable. For acute hypokalemia and acute hypophosphatemia he received replacement. For diabetes was monitored with point of cares. For seizure disorder he was continued on Keppra. Patient will be discharged home. He is now receiving tube feedings, has VNA services in place. It appears that he stopped responding to the pembro. Further options are limited, in view of his poor reserve due to thrombocytopenia. He could possibly have received palliative radiation, although he has had radiation twice in the past. Last time was in 2020. I got an opinion from Dr. Santillan from [facility], however she felt there was no more room for more radiation. I discussed with him and his the option of palliative chemotherapy with Carboplatin and Taxane. I was concerned about underlying pancytopenia, from liver disease, however, his blood count appears to have improved. I will now treat him with palliative chemotherapy, with weekly Carbo/Abraxane. [08/05/24] Today, patient called office reporting severe abdominal pain, gradually worsening abdominal distention, nausea, vomiting. Patient voiced suicidal ideations, stated he is thinking of killing himself due to persistent severe abdominal pain This is new for patient, no prior history of severe depression. Patient called from home with spouse present and aware of both physical complaints as well as suicidal ideations. Patient agreed to be seen in the office. Reported gradually worsening abdominal distention, pain, nausea or vomiting. Denies pain relief with Tylenol and Advil. He states he ran out of oxycodone sometime ago. However, oxycodone was not providing significant relief either. Denies difficulty with tube feedings via gravity. States able to have 6-7 tube feedings in 24 hour perioid, but the nausea and vomiting persists and is hard to ascertain if tube feedings are making it worse as it appears to occur sporadically before and after feedings. Emesis is yellow to brown. No gilma blood or obvious coffee-ground emesis. Importance of prompt evaluation of present gastrointestinal symptoms, pain, as well as for evaluation of mentioned suicidal ideations were discussed with patient and his spouse. Patient agreed to go to the ER for further evaluation and management. This provider called report to attending provider at the emergency department. We will closely follow this patient. INTERIM HISTORY: He had dysphagia symptoms, mostly to solids. Upper endoscopy on 01/18, by Dr. Suggs. This revealed: Esophagus: The distal esophagus showed a 5 cm area of ulceration with masslike effect consistent with possible recurrence of his adenocarcinoma. Biopsies were carefully obtained from the distal esophagus. There were no esophageal varices identified. Stomach: The stomach showed no evidence of masses or ulcers. Retroflexed examination showed no mass lesion extending below the EG junction. Pathology revealed: Superficial fragments of adenocarcinoma, moderately differentiated. He still has ongoing swallowing issues. This is more to solids. He is able to swallow a soft diet including rice and pasta. He has lost weight. He was 220 lb and now down to 185. PREVIOUS HISTORY: He tells me he has had back pain. This started after he was using a sledgehammer. 4?22: MRI of the spine revealed: 1. Subacute T7 upper endplate impaction fracture with similar approximately 50% height loss and anterior wedging compared to radiograph from 08/24/2023. 2. Marrow signal abnormality throughout the thoracic spinal column as above that be correlated for history of prior radiation therapy with radiation induced fatty marrow signal change in the midthoracic spine likely on a background of diffuse osteopenia. 3. Cirrhotic hepatic morphology and splenomegaly. Soft tissue thickening in the region of the distal esophagus, better characterized on prior PET from 12/03/2017. He actually underwent a kyphoplasty on 11/22 by interventional radiology. INTERIM HISTORY: On 04/14 he was seen in the ER: 61-year-old male with history of type 2 diabetes, HTN, seizures, adenocarcinoma of the esophagus who presents to the ER for evaluation of a left thumb injury, through and through injury with a drill bit. X-ray reviewed and does not appear to have bony involvement. He has normal function of all tendons. No sensory deficit. No active bleeding. The wound was soaked in Betadine, saline, Hydrogen peroxide combination for antiseptic affect. Will prescribe prophylactic antibiotics to prevent infection. Tdap given. Patient counseled on wound care and return precautions. He is stable for discharge home. He was seen by Dr. Suggs on 04/02/22: Upper endoscopy in August showed no evidence of recurrence of his esophageal adenocarcinoma. Gastric polyp biopsy showed polypoid foamy hyperplasia chronic active gastritis and no H pylori. He continues on the Protonix 40 mg. With respect to his liver disease ultrasound earlier this year showed patent tips shunt without focal liver lesion. No varices were noted on endoscopy in August. Radiation changes were seen. Colonoscopy showed a nonbleeding 8 mm avium on the ileocecal valve and hemorrhoids. His anemia has resolved with iron supplementation. No endoscopy was recommended at that time. Previous history: He had fallen over the weekend. They had a yd sale at their home. He just tripped. Since then he had pain in his right knee. He has some abrasions there. He has a hard time walking. l proceeded with an x-ray of the knee on 01/03: Mild osteopenia. No visible acute fracture, dislocation or subluxation seen. He tells me his knee is much better now. He cannot kneel down but he is able to bend it. He had an upper endoscopy on 02/12/[address] Suggs. Did not reveal any residual cancer. He is on a new medication for diabetes. It does appear to be helping. Blood sugars are in the range of 118-120. He is in good spirits. Rest of the review of systems is unremarkable. He tells me he has some blood vessels growth in his eyes. He is under the care of [facility] in [place]. They are monitoring it for now. He denies any major visual complaints. Interim history: He was noted to be rather anemic. He required blood transfusion. He underwent an upper endoscopy and colonoscopy on 09/[address] Suggs. Results: UPPER ENDOSCOPY: Esophagus: The esophagus showed changes consistent with radiation therapy over the lower 1/3 with small areas of petechiae measuring 1-2 mm. There was no evidence of recurrent adenocarcinoma at the EG junction. No biopsies were obtained due to the patient's history of esophageal varices and thrombocytopenia. No varices were seen. Stomach: The stomach showed no evidence of masses or ulcers. There were 2 polyps present at the antrum near the pyloric channel. These had been seen on prior examinations and they were re-biopsied. The largest measured approximately 15 mm x 20 mm. Duodenum: The bulb and second portion were normal. COLONOSCOPY: The terminal ileum was normal. The prep was excellent. There was an 8 mm nonbleeding AVM on the ileocecal valve. No other AVMs were identified. No polyps were seen. Retroflexed examination showed moderate-sized internal hemorrhoids. IMPRESSION: 1. Radiation changes to the lower esophagus. 2. Gastric polyps. 3. Colonic arteriovenous malformation. RECOMMENDATION: 1. Follow up the biopsy results. 2. Repeat colonoscopy is recommended in 10 years for average risk individuals. 3. Continue present therapy. Previous history: He completed re irradiation in May. He tolerated it well for the most part. He did not develop any swallowing difficulty however he did end up with a cold and a cough which lasted about 5 weeks. It has resolved now. He had a stroke several months ago. He went through a course physical therapy. He still has residual right upper extremity weakness. He is trying to stay active. He does yard work at home. He denies any dysphagia or odynophagia. Review of Systems - Constitutional Reports system reviewed and no additional complaints, except as documented, Reports anorexia, Reports body ache(s), Reports fatigue, Reports lack of energy, Reports malaise, Reports poor appetite, Reports weakness, Reports weight loss, Denies fever(s) - Eyes Reports system reviewed and no additional complaints, except as documented - ENT Reports system reviewed and no additional complaints, except as documented, Reports dizziness - Cardiovascular Reports system reviewed and no additional complaints, except as documented - Respiratory Reports no additional respiratory complaints - Gastrointestinal Reports system reviewed and no additional complaints, except as documented, Reports bloating, Reports change in stools, Reports diarrhea - Genitourinary Genitourinary: Reports no additional male genitourinary complaints - Musculoskeletal Reports system reviewed and no additional complaints, except as documented - Integumentary/Breasts Skin/Breast: Reports no additional skin complaints - Neurologic Reports system reviewed and no additional complaints, except as documented, Reports frequent falls, Reports weakness - Psychiatric Reports system reviewed and no additional complaints, except as documented - Endocrine Reports no additional endocrine complaints - Hematologic/Lymphatic Reports system reviewed and no additional complaints, except as documented - Allergic/Immunologic Reports system reviewed and no additional complaints, except as documented PMFSH Medical History: Medical History (Last Reviewed 08/19/24 @ 20:35 by Matt Boogie MD) Acute pancreatitis 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 Alcoholic cirrhosis Anemia Ascites Constipation Diabetes Elevated ferritin Esophageal mass Esophageal varices Esophagus, carcinoma Hepatic cirrhosis Hepatitis C History of blood transfusion History of GI bleed Onset Date: ~2017 Hx of splenomegaly Hyperlipidemia LDL goal <70 Male circumcision Seizure disorder Stroke Thrombocytopenia Type 2 diabetes mellitus with diabetic polyneuropathy Type 2 diabetes mellitus with hyperglycemia Wears dentures Functional capacity: wheelchair bound Patient : No Family History: Family History (Last Reviewed 08/19/24 @ 20:35 by Matt Boogie MD) Father No problems noted. Mother Diabetes mellitus Surgical History: Surgical History (Last Reviewed 08/19/24 @ 20:35 by Matt Boogie MD) History of surgery on lower extremity Onset Date: ~2003 Hx of circumcision Hx of colonoscopy Onset Date: 08/2021 Hx of endoscopy Onset Date: 08/2021 S/P percutaneous endoscopic gastrostomy (PEG) tube placement S/P transjugular intrahepatic portosystemic shunt Onset Date: ~2017 Social History: Social History (Last Reviewed 08/19/24 @ 20:35 by Matt Boogie MD) Living Situation History: Household Members: Spouse Household Members Other:: Spouse: Antoni Housing: House Are you a primary manager long term care to a significant other at home: No Do you presently have visiting nurse or other home services: Yes Tobacco History: Patient Tobacco Use Status: Former Tobacco user Tobacco use type: Cigarette Years Smoked: 10 Smoking End Date: 11/19/23 e-Cigarette/Vaping Use: Never Used Second Hand Smoke Exposure: No Advance Directives: Advance Directives Date on File: 01/28/21 Occupation Assessmet: service: No Current occupational status: disabled Oncology Screenings - ECOG Performance Status ECOG Performance Status: 2 Home Medications and Allergies Home Medications ?Medication ?Instructions ?Recorded ?Confirmed ?Type lancets 33 gauge #100 ea 08/15/20 08/15/24 History pen needle, diabetic 31 gauge x #1,200 ea 08/15/20 08/15/24 History 5/16 levetiracetam 100 mg/mL oral 250 mg feeding tube BID 08/05/24 08/19/24 History solution ferrous sulfate 325 mg (65 mg 325 mg feeding tube BID 08/19/24 08/19/24 History iron) tablet furosemide 40 mg tablet 40 mg feeding tube DAILY 08/19/24 08/19/24 History lisinopril 2.5 mg tablet 2.5 mg feeding tube DAILY 08/19/24 08/19/24 History nadolol 20 mg tablet 20 mg feeding tube DAILY 08/19/24 History spironolactone 100 mg tablet 100 mg feeding tube DAILY 08/19/24 History Allergies Allergy/AdvReac Type Severity Reaction Status Date / Time No Known Allergies Allergy Verified 08/19/24 14:22 Exam Vital signs: Vital Signs Temp 97.9 F 08/19/24 10:43 Pulse 107 H 08/19/24 10:43 Resp 18 08/19/24 10:43 BP 91/54 L 08/19/24 10:43 Pulse Ox 96 08/19/24 10:43 O2 Del Method Room Air 08/19/24 10:43 Weight 75.5 kg BMI result Body Mass Index 26.1 - Constitutional Present: moderate distress - Routine HEENT Exam Head: Present: normal inspection Eye: Present: normal appearance ENT: Present: mucous membranes moist - Routine Neck Exam Present: full ROM - Routine Respiratory Exam Present: CTAB. Absent: accessory muscle use - Routine Cardiovascular Exam Cardiovascular: Present: RRR, S1, S2 - Routine Abdominal Exam Present: distended, hyperactive bowel sounds - Routine Extremities Exam Present: normal inspection. Absent: pedal edema - Routine Back/Spine/Pelvis Exam Back/Spine: Present: full ROM - Routine Skin Exam Present: intact, dry, warm - Routine Neurological Exam Present: alert, oriented X3 - Detailed Neurological Exam: Coma Scale Eye Opening: Spontaneous (4) - Routine Psychiatric Exam Present: suicidal ideation Data - Labs CBC & Chem 7: 08/19/24 10:33 08/19/24 10:33 - Imaging Radiologist's impression: ITS Impressions Knee X-Ray 12/31/21 13:49 IMPRESSION: Mild osteopenia. No visible acute fracture, dislocation or subluxation seen. Assessment and Plan Patient Active problem list reviewed?: Yes (1) Adenocarcinoma of lower esophagus Status: Inactive Assessment and plan: This is a pleasant, 59 year-old gentleman with history of Hepatitis C, Esophageal Adenocarcinoma. He completed combined modality therapy with radiation plus chemotherapy, in August of 2017. CT chest with contrast performed 10/22/17 showed wall thickening of the distal thoracic esophagus, enlarged paraesophageal varices, no enlarged hilar or mediastinal lymph nodes, enlarged spleen and mild upper abdominal lymphadenopathy, largest lymph node in the periportal region measuring 1.5x1.3 cm. Also a nonspecific 1 cm lucent lesion in the superior endplate of T7 would whole-body, ? metastasis. Several nonspecific lytic lesions in the thoracic and visualized upper lumbar vertebral bodies questionable for possible metastatic disease. He denies any dysphagia or odynophagia. Routine endoscopy reveals disease recurrence, with a 2 cm mass just below the EG junction. Pathology confirms: Moderately differentiated Adenocarcinoma. A PET scan, was denied. CT scan of the chest from November 24 revealed: 1. No pulmonary nodule, mass or groundglass opacity is seen. 2. There is no thoracic lymphadenopathy. 3. There is are cirrhotic changes of the liver redemonstrated, without focal mass seen. 4. There is interim placement of a portocaval shunt. The splenic and mesenteric veins appear patent. Upper abdominal varices are less pronounced than seen. 5. There is stable wall thickening of the gastroesophageal junction. 6. No abdominopelvic metastasis, free fluid or lymphadenopathy is seen. Unfortunately, he is really not a surgical candidate. He has already had radiation therapy so that is not an option. He underwent an endoscopic ultrasound to evaluate for the thickness of the tumor, and possible adenopathy. This was done on January [address] Elizabet Gilliam. Findings: Endoscopy revealed a 1.5-2 cm GE junction mass, that appeared to be semi pedunculated. Evidence of mild portal hypertensive gastropathy in the stomach. Two small polyps noted in the stomach 1 in the gastric body and other just proximal to the pyloric sphincter. Polyps appeared reactive. Endoscopic ultrasound: Tumor was hypoechoic 1.8 x 1.4 cm, likely T1b, and 0. The MP was intact. Small varices noted in the submucosa. No aortic nor vertebral invasion. Normal celiac takeoff. No obvious lesion in the liver. Normal appearing pancreatic duct. The plan initially was to proceed with photodynamic therapy. That will help to avoid systemic chemotherapy. He has seen Dr. Lucio Mo, at [facility]. His note mentions: Endosonographically, stage T1b. This is a difficult situation. Locally recurrent GE junction adenocarcinoma already subjected to 50 Gy of radiation. He has no regional nor distant metastatic disease. Ideally surgical resection should be done but his comorbidities that too significant to allow for a safe surgery. Endoscopic submucous ectomy still relatively early in the evolution of the technique and since this lesions pans 2.5 cm in longitudinal dimension that may be too much for endoscopic resection. We have to consider other local ablative modalities to take care of this recurrence. He was given a couple of options: 1. Photodynamic therapy. 2. Brachytherapy. He would favor brachy therapy, since his visceral disease is worrisome, in regards to the bleeding from his variceal disease. That would be more of a risk with photodynamic therapy. (he is not in favor of having to hide from light for 4-6 weeks if he undergoes photodynamic therapy.) Overall the safety profile of brachytherapy would be higher than photodynamic therapy. It also has a better track record. I called the Radiation Oncology Department at [facility] to expedite his appointment for brachy therapy there. D/W Radiation therapist at [facility]. They are recommending re-irradiation. I had discussed with Dr. Sarmiento at [facility], to set it up here, for his convenience. His appointment was on April 12. She did discussed the option of endoscopic resection with the surgeon however they were not keen on it on account of his history of varices. He had a PET scan done, on 05/11/2020 at [facility] which revealed: Focal area of distal esophageal wall thickening with mildly increased activity, SUV max of 5.5. No findings suggestive of distal metastatic disease. He was then referred to Dr. Sarmiento. He completed re-irradiation at [facility], few months ago. He had repeat upper endoscopy by Dr. Suggs, on 09/25. This revealed: Esophagus: The esophagus showed changes consistent with his prior radiation therapy. There was a nodular area just below the EG junction with some inflammatory change. This was biopsied. There were no visible esophageal varices or gastric varices. Stomach: The stomach showed no evidence of masses or ulcers. The previously identified gastric polyps were present. They appeared unchanged from his prior examination. Biopsies were obtained from the gastric polyps. Duodenum: The bulb and second portion were normal. 1. Adenocarcinoma of the EG junction, status post biopsy. 2. Gastric polyps. Unfortunately, the biopsy results revealed: Ulcerated cardiac type mucosa with high-grade dysplasia/in Situ adenocarcinoma. No squamous epithelium seen. This could be residual after radiation and may disappear with the tincture of time. However there is no invasive component, for which any medical treatment could be recommended. He had a left CVA with right-sided weakness. He had PT done. He still has residual right upper extremity weakness but otherwise doing well. Denies any GI complaints. Ultrasound of the abdomen from 02/14/21 revealed: Fatty infiltration of the liver. Patent TIPS. Splenomegaly. He had an upper endoscopy on the 02/12/[address] Suggs which revealed: No evidence of recurrent adenocarcinoma at the EG junction. He has pancytopenia likely related to his liver disease and cirrhosis. His blood count had dropped significantly, at his last visit even though he was not very symptomatic. At his visit on 08/15/21, his hemoglobin went down to 7.2. Iron studies: 20/458/4/6. B12 452. Folate 11.2. Concern was for disease recurrence versus another source of GI blood loss. He was given 2 units of packed RBCs. He underwent an upper endoscopy on 09/[address] Suggs. This revealed a findings consistent with radiation esophagitis/gastritis. Pathology revealed: Polypoid foveolar hyperplasia with chronic active gastritis, negative for H pylori, intestinal metaplasia and dysplasia. The colonoscopy was negative. He was advised to take the proton pump inhibitor twice a day and at Carafate however he did not take the Carafate. He was taking oral iron. Hemoglobin from September 13 was 9.6. 01/03, his hemoglobin is 15.7. It was 14.4, in October. This is reassuring. On 12/27, he fell down and injured his right knee. l proceeded with an x-ray of the knee. This did not reveal any fracture. His knee is all better. He injured his back. CT scan of the T-spine from 11/04 revealed: Stable appearance to the moderate T7 vertebral body compression fracture from September 2023 thoracic spine MRI. There is lucency adjacent to the fracture lines and overall increased sclerosis of the vertebral body. Given history of esophageal cancer, possible pathologic fracture should be considered. Increased sclerosis is likely related to postradiation changes. He underwent a kyphoplasty on 11/22. He still has residual pain. He has recently has had dysphagia to solids. Upper endoscopy on 01/18, by Dr. Suggs. This revealed: Esophagus: The distal esophagus showed a 5 cm area of ulceration with masslike effect consistent with possible recurrence of his adenocarcinoma. Biopsies were carefully obtained from the distal esophagus. There were no esophageal varices identified. Stomach: The stomach showed no evidence of masses or ulcers. Retroflexed examination showed no mass lesion extending below the EG junction. Pathology revealed: Superficial fragments of adenocarcinoma, moderately differentiated. His CBC: WBC 6.4, Hemoglobin is 15.2. PLT 90. LFTs are normal. He had a CT scan of the chest abdomen pelvis on 02/16, which revealed: 1. Marked thickening of the distal esophagus beginning below the level of the itzel down to the GE junction suspicious for recurrent esophageal carcinoma. 2. No evidence of metastatic disease in the chest, abdomen or pelvis. 3. Cirrhotic liver with patent TIPS and splenomegaly. His pathology did show PD-L1 positivity with a CPS score of 5. He was deemed a candidate for pembrolizumab, based therapy. He was started on it, on 03/01. 06/20, He had cycle #4. He tolerated the 1st 3 cycles well. CEA: 2.20. Subsequently, he called mentioning that he was not able to swallow food. He was advised to go into the hospital. A G-tube placement was attempted. However the scope did not pass through. He then had a gastrostomy tube placed surgically. He is now receiving tube feedings. It appears that he stopped responding to the pembro. Further options are limited, in view of his poor reserve due to thrombocytopenia. He could possibly have received palliative radiation, although he has had radiation twice in the past. Last time was in 2020. I got an opinion from Dr. Santillan from [facility], however she felt there was no more room for more radiation. I discussed with him and his the option of palliative chemotherapy with Carboplatin and Taxane. I was concerned about underlying pancytopenia, from liver disease, however, his blood count appears to have improved. I will now treat him with palliative chemotherapy, with weekly Carbo/Abraxane. I will give him low-dose oxycodone to help with the pain and insomnia. He will return in a week for chemo teaching and to get started. [08/05/24] Today, patient called office reporting severe abdominal pain, gradually worsening abdominal distention, nausea, vomiting. Patient voiced suicidal ideations, stated he is thinking of killing himself due to persistent severe abdominal pain This is new for patient, no prior history of severe depression. Patient called from home with spouse present and aware of both physical complaints as well as suicidal ideations. Patient agreed to be seen in the office. Reported gradually worsening abdominal distention, pain, nausea or vomiting. Denies pain relief with Tylenol and Advil. He states he ran out of oxycodone sometime ago. However, oxycodone was not providing significant relief either. Denied difficulty with tube feedings via gravity. States able to have 6-7 tube feedings in 24 hour period, but the nausea and vomiting persists and is hard to ascertain if tube feedings are making it worse as it appears to occur sporadically before and after feedings. Emesis is yellow to brown. No gilma blood or obvious coffee-ground emesis. Denies melena or bright red blood per rectum. Stools are on a looser side, denies watery diarrhea. Patient appears to have taken a turn for the worse very quickly. The called yesterday, was advised to bring him to the ED but she declined. He was advised to come in here today. On exam he is very lethargic and confused. He actually pulled out his IV from the confusion. The has had a very difficult time caring for him. It is hard for her to hold him and take him to the bathroom. He actually fell. Been she tries to put the tube feedings into the J-tube, he gets diarrhea right away. Is incontinent. He denies fevers, but he is extremely fatigued. Database: WBC 20. PLT 86. CMP: BUN 92. RESIDENTIAL CARE OFFICER 6.18. BUN on 07/28 were 19 and RESIDENTIAL CARE OFFICER 0.66. K: 3.3. I discussed his condition in great detail with his . Including the rapid deterioration in his general condition as well as his kidney function. It appears that the tube feedings are getting rejected. He can not tolerate them, due to the ongoing diarrhea. He has become very dehydrated. Likely has ATN. At this point the treatment options are rather limited. Had planned to give him Taxol with ramcirumab however he is in no condition to tolerate that. In addition she is unable to take care of him at home with her own health issues. I offered hospice care, as an inpatient. I discussed the case with Roseline fine. The diversified crops farmworker came down and talked to his . She was rather overwhelmed and upset about his recently changed status. However, she did understand the gravity of the situation. She was able to sign the DNR paperwork. PLAN: I discussed the case with Dr. Sorensen in the ED. Has graciously accepted him to his care. He will be signed on to [facility] hospice thereafter. I will be happy to help in any way possible. Thank you, CC: Dr. Gray. Dr. Nikki Acevedo. Dr. Suggs. Dr. Mo. - Time Spent With Patient Time Spent with Patient (in minutes): 30
--- NOTE | 2024-08-19 17:09 | MHC.HEMONC ---
Pt here for IV hydration. Labs drawn. Pt brought to room and assisted into recliner. Very weak, with difficulty standing. His Antoni states he fell at home last night, and has large abrasion to his right knee. She reports that she has no help at home, and had a difficult time getting him up. IV started right arm with good blood return noted. Creatinine 6.18, which was reported to Dr Crawford. IV infusing at 150cc/hr. Dr Crawford in to see pt and speak with his . Did discuss possibly sending pt to ED, and admitting him. Also discussed possible hospice. very upset, crying. She is agreeable to having hospice informational meeting. Yamilex, hospice Screener Perfumer, came in to see pt and his . Met with them and information given regarding hospice. Dr Crawford in as well, and agreed to have pt go to ED for admit and hospice. MOLST form done and scanned into chart, and copies given to his . Pt was placed onto stretcher and brought to ED. Report given to ED RN.
== END 2024-08-22 | disposition home or self-care (01) ==
LOC: HO.ONC 09:00
PROVIDERS: Pathology Cytopathology; PCP Nurse Practitioner Family; Visit Provider Internal Medicine Medical Oncology
DX: C15.5 Malignant neoplasm of lower third of esophagus (principal); E11.9 Type 2 diabetes mellitus without complications; K74.60 Unspecified cirrhosis of liver; D69.6 Thrombocytopenia, unspecified; G40.909 Epilepsy, unspecified, not intractable, without status epilepticus; I69.331 Monoplegia of upper limb following cerebral infarction affecting right dominant side; G47.00 Insomnia, unspecified; Z79.899 Other long term (current) drug therapy; Z93.1 Gastrostomy status; Z51.5 Encounter for palliative care; Z66 Do not resuscitate
CPT/HCPCS: 36415; 36430; 73564; 80053; 82043; 82378; 82607; 82728; 82746; 83036; 83540; 83615; 84153; 84443; 85025; 86704; 86706; 86850; 86900; 86901; 86923; 87340; 88360; 88363; 96360; 96361; 96372; 96375; 96413; 99212; 99213; 99214; J1200; J9271; P9016

== ENCOUNTER 2024-08-19 14:08 | Observation (INO) | payer OTHER, SELFPAY ==
--- NOTE | ~2024-08-19 | CT_ITS ---
CLINICAL HISTORY: fall CT head without contrast Comparison: None Findings: No intra-axial mass, midline shift, hydrocephalus, or acute hemorrhage. There is large area left parietal encephalomalacia No significant atrophy-like change or white matter disease. There is no sinus or mastoid fluid. The orbits are unremarkable. No skull fracture. IMPRESSION: 1. No acute intracranial findings. This document has been electronically signed by: Raijv Mendes MD on 08/19/2024 17:43:06
--- NOTE | ~2024-08-19 | CT_ITS ---
CLINICAL HISTORY: fall CT cervical spine without contrast Comparison: None Findings: Vertebral alignment is within normal limits. There is multiple level degenerative disc change. No acute fractures or dislocations. Visualized intracranial contents are unremarkable. Soft tissues of the neck are normal. Lung apices are clear. IMPRESSION: No acute findings. This document has been electronically signed by: Rajiv Mendes MD on 08/19/2024 17:42:06
--- NOTE | ~2024-08-19 | XR_ITS ---
EXAMINATION: XR CHEST CLINICAL INFORMATION: cough COMPARISON: 06/16/2024. TECHNIQUE: Frontal view of the chest was obtained. FINDINGS: The cardiac, hilar, and mediastinal contours are normal. Low lung volumes with mild bronchovascular crowding. Lungs otherwise clear. No pneumothorax or effusion. There is embolic coil material in the upper central abdomen. There is a TIPS stent in place. There is kyphoplasty cement in T8. XR/XR chest 1V IMPRESSION: No active pulmonary disease. Electronically signed by: Cheo Herrera MD 08/19/2024 04:56 PM EST
[2024-08-19 14:20] VITALS: BP 80/52; PULSE 120; RESP 18; TEMP 36.9; O2SAT 95; BMI 24.9
--- NOTE | 2024-08-19 14:32 | PC.NURSE ---
Pt presents from [facility] infusion suite- pt has hx of esophageal adenocarcinoma- per pt pt has had several episodes of diarrhea, and increasing weakness. Per oncology spouse wishes to have hospice consult. pt opens eyes to name- sts he is currently experiencing 7/10 mid upper abdominal pain. 22g IV line in place from infusion suite. pt changed into hospital attire warm blankets provided. awaiting provider karlaal
[2024-08-19 16:00] VITALS: PULSE 106; RESP 10
--- NOTE | 2024-08-19 16:31 | ECG_ITS ---
Test Reason : WEAKENSS Blood Pressure : */* mmHG Vent. Rate : 100 BPM Atrial Rate : 100 BPM P-R Int : 150 ms QRS Dur : 80 ms QT Int : 404 ms P-R-T Axes : 41 40 44 degrees QTcB Int : 521 ms Normal sinus rhythm Prolonged QT Abnormal ECG When compared with ECG of 05-Aug-2024 11:43, Criteria for Anterior infarct are no longer Present T wave inversion no longer evident in Inferior leads Nonspecific T wave abnormality no longer evident in Anterolateral leads Referred By: Colby Underwood Electronically Signed By: Bao Chambers
--- OUTSIDE RECORDS SUMMARY | 2024-08-19 16:38 | XMS_ITS | Encounter Summary ---
Author Organization [facility] Address [address] [place] [address] Care Team Providers Care Infrastructure Director Name Role Phone Nikhil Gray NP Primary Care Provider + [phone] Reason for Referral * Consultation (Routine) - Closed Specialty Diagnoses / Procedures Referred By Supriya t Referred To Contact Radiation Oncology Diagnoses Esophageal cancer ([facility]/HCC) Harjit Crawford MD [address] [place] [address] ATTN: HEMATOLOGY/ONCOLOGY [place], [place] Phone: tel: fax: [facility] Radiation Oncology [address] [place] [phone] Phone: tel: fax: Referral ID Status Reason Start Date Expiration Date V isits Requested Visits Authorized [id number] Closed Specialty Services Required 07/19/2024 07/19/2025 1 1 Reason for Visit * Reason Comments Consult * Consultation (Routine) - Closed Specialty Diagnoses / Procedures Referred By Supriya t Referred To Contact Radiation Oncology Diagnoses Esophageal cancer (CMS/HCC) Harjit Crawford MD [address] [place] [address] ATTN: HEMATOLOGY/ONCOLOGY [place], [place] Phone: tel: fax: [facility] Radiation Oncology [address] [place] [phone] Phone: tel: fax: Referral ID Status Reason Start Date Expiration Date V isits Requested Visits Authorized [id number] Closed Specialty Services Required 07/19/2024 07/19/2025 1 1 Encounter Details Date Type Department Care Team (Latest Contact Info) Description 07/26/2024 12:24 PM EST - 07/26/2024 11:59 PM EST Hospital Encounter [facility] Radiation Oncology [address] [phone] Valentine Santillan MD [address] [place] [address] Adenocarcinoma of esophagus (CMS/HCC) (Primary Dx); Head [...] documented in this encounter Progress Notes * Mona Burns - 07/26/2024 1:00 PM Lexiounter addended by: Mona Burns on: 08/18/2024 11:07 AM Actions taken: Charge Capture section accepted * Alma Alva MA - 07/26/2024 1:00 PM EST Requested ER notes / discharge summary / imaging / procedure notes / pathology from recent [facility] admission (06/16/24 - 06/24/24). Also requesting ER [...] from the original note were not included. [address] [phone] Radiation Oncology Outpatient Consult Staff Physician: Valentine [...] RT 46 Gy in 23 fractions ending 07/22/20 Recurrence in distal esophagus Jan 2024, started [...] and recent May 2024 CT scan at [facility] it appears his recurrent disease is in [...] Oncological History: 06/16/2024 - 06/24/2024 Hospitalized at [facility] for odynophagia and dysphagia. 06/16/2024 CT Abdomen and pelvis 06/17/[address] Suggs 06/20/[address] Sahu 07/11/[address] Crawford. Currently: Doing 7 cartons via feeding tube. FU Dr. Crawford TBD, was supposed to be today but cancelled due to today's appt. Hardly any PO intake. SH: lives with in [place], [place]. PRIOR RT: With Dr. Slaughter PRIOR [...] (CMS/HCC)- Primary Malignant neoplasm of esophagus, unspecified apparel cutter and neck cancer (CMS/HCC) documented in this [...] split. added in this encounter Care Teams Infrastructure Director Relationship Specialty Start Date End Date Nikhil Gray NP [address] [place], [place] PCP - General Family Medicine 07/19/24 documented as of this encounter
--- OUTSIDE RECORDS SUMMARY | 2024-08-19 16:38 | XMS_ITS | Clinical Summary ---
Author Organization [facility] Address [address] [place] [address] Phone Care Team Providers Care Laser Operator Name Role Phone Nikhil Gray NP Primary [...] - 07/26/2024 11:59 PM EST Hospital Encounter [facility] Radiation Oncology [address] [facility] 2nd [place] [phone] Valentine Santillan MD Adenocarcinoma of esophagus (CMS/HCC) (Primary Dx); Head and neck cancer (CMS/HCC) Discharge Disposition: Home or Self Care 07/26/2024 12:02 PM EST - 07/26/2024 11:59 PM EST Hospital Encounter [facility] Radiation Oncology [address] [phone] Discharge Disposition: Home or Self Care 07/19/2024 Telephone [facility] Radiation Oncology [address] [address] May Qureshi [place] from Last 3 Months Surgical History Surgery Date Site/Laterality Comments G-TUBE PLACE PERCUTANEOUS BACK SURGERY N/A T.I.P.S PROCEDURE LEG SURGERY Right lower leg fracture with repair Medical History Medical History Date Comments Esophageal cancer (CMS/HCC) Diabetes mellitus ([facility]/HCC) Hyperlipidemia Stroke ([facility]/HCC) Family History Medical History Relation Name [...] complete this topic Insurance [place] - [place] [facility] Member Subscriber Plan / Payer (Ef fective 2020-Present) Name:Tj Granda Relation to Subscriber:Self Name:Tj Granda Payer ID:[id number] Group ID:[id number] Type:Not on file Address: [address] [place] [address] Care Teams Laser Operator Relationship Specialty Start Date End Date Nikhil Gray NP [address] [place], [place] PCP - General Family Medicine 07/19/24
--- OUTSIDE RECORDS SUMMARY | 2024-08-19 16:38 | XMS_ITS | Encounter Summary ---
Author Organization [facility] Address [address] [place] [address] Care Team Providers Care Crossing Guard Name Role Phone RodolfoNikhil titus Alma CHAU Primary Care Provider Encounter Details Date Type Department Care Team (Latest Contact Info) Description 07/26/2024 12:02 PM EST - 07/26/2024 11:59 PM EST Hospital Encounter [facility] Radiation Oncology [address] [address] Discharge Disposition: Home or Self [...] on filedocumented in this encounter Care Teams Crossing Guard Relationship Specialty Start Date End Date Nikhil Gray NP [address] [facility] MARTITA Francois PCP - General Family Medicine 07/19/24 documented as of this encounter
--- OUTSIDE RECORDS SUMMARY | 2024-08-19 16:38 | XMS_ITS | Patient Health Record ---
Author Organization [facility] Address [address] [place] [address] Care Team Providers Care Inspector Printed Circuit Boards Name Role Phone Nikhil Nath Primary Care Provider Unav ailable BrandtjerryMartha Unavailable [phone] Reason For Referral No Information Encounters Encounter Location Date Provider [facility] [address] [place] [address] 04/27/2024 Martha Teena Plan Of Treatment No Information Insurance Providers Payer Name Payer Address Payer Phone Subscriber Number Group Number Insured Name Patient Relationship to Insured Coverage Start Date Coverage End Date [facility] [place] [employer] Claims [address] [place] [id number] Tj Almeida Self - patient is the insured
--- OUTSIDE RECORDS SUMMARY | 2024-08-19 16:38 | XMS_ITS ---
Author Organization [facility] Address [address] [place] [address] Care Team Providers Care Strength And Conditioning Coach Name Role Phone SAÚL BERKOWITZ Primary Care Provider Rahul Suggs Jr, Benjamin Chilel [phone] REASON FOR VISIT wt loss,esophageal ca Encounters Encounter Location Date Provider Diagnosis [facility] [place] [address] [place] [id number] 06/17/2024 Benjamin Suggs Jr PLAN OF TREATMENT Next Appt Details Provider Name:Benjamin loredo Jr, 09/15/2024 01:55:00 PM, [address], [address], [place], [address],
--- OUTSIDE RECORDS SUMMARY | 2024-08-19 16:39 | XMS_ITS ---
Author Organization [facility] Address [address] [place] [address] Care Team Providers Care Interior Wirer Name Role Phone SAÚL BERKOWITZ Primary Care Provider Rahul Suggs Jr, Benjamin Chilel [phone] REASON FOR VISIT referral - left msg -08/15 Encounters Encounter Location Date Provider Diagnosis [facility] [address] [place] [address] 08/12/2024 Benjamin Suggs Jr PLAN OF TREATMENT Next Appt Details Provider Name:Benjamin loredo Jr, 09/15/2024 01:55:00 PM, [address] [facility], [address], [place], [address],
--- OUTSIDE RECORDS SUMMARY | 2024-08-19 16:39 | XMS_ITS ---
Author Organization [facility] Address [address] [place] [address] Care Team Providers Care Produce Shipper Name Role Phone Marina CHAU-Nikhil TOVAR Primary Care Provider Unav ailable Martha Dickinson Unavailable [phone] REASON FOR VISIT cx CRAB CATCHER 05/03 Encounters Encounter Location Date Provider Diagnosis [facility] [address] [place] [address] 04/27/2024 Martha Dickinson Plan Of Treatment No Information Progress Notes * Tj GRANDA ADOB:12/1960 (63 yo M)Acc No.[id number]:04/27/2024 Patient:?Tj Granda :1960???Age:63 Y???Sex:Male Address:[address] [place] [address], [address] * true * Date:? Generated for Osmini malik/Clifford/eTransmitting on:?08/19/2024 04:39 PM EST
--- OUTSIDE RECORDS SUMMARY | 2024-08-19 16:39 | XMS_ITS ---
Author Organization [facility] Address [address] [place] [address] Care Team Providers Care Wire Temperer Name Role Phone Marina CHAU-BC, Nikhil Primary Care Provider Unav ailable Martha Dickinson Unavailable [phone] REASON FOR VISIT no RESOURCE TEACHER ppwrk Encounters Encounter Location Date Provider Diagnosis [facility] [address] [place] [address] 05/03/2024 Martha Dickinson Plan Of Treatment No Information Progress Notes * KALEE Tj ADOB:12/1960 (63 yo M)Acc No.[id number]:05/03/2024 Progress Notes Patient:?Tj GRANDA Provider:?Martha Dickinson DPM :1960???Age:63 Y???Sex:Male Sergo e:05/03/2024 Address:[address] [place], [place] [id number] Pcp:SHERRI Tanner Subjective: * Chief Complaints: * ???1. no RESOURCE TEACHER ppwrk. * Medical History:? Objective: * Vitals:? Assessment: Plan: * Treatment: * Images: * The named appointment provid er may or may not be the originator of this progress note, and it is not deemed complete until electronically signed by the appointment provider. Sign off status: Pending * Provider:?Martha Dickinson DPM Date:?05/2024 Generated for Mallory gan/Clifford/eTransmitting on:?08/19/2024 04:38 PM EST
--- OUTSIDE RECORDS SUMMARY | 2024-08-19 16:39 | XMS_ITS ---
Author Organization [facility] Address [address] [place] [address] Care Team Providers Care Software Writer Name Role Phone SAÚL BERKOWITZ Primary Care Provider Rahul Suggs Jr, Benjamin Chilel REASON FOR VISIT patient going to ER Encounters Encounter Location Date Provider Diagnosis [facility] [address] [place] [address] 06/16/2024 Benjamin Suggs Jr PLAN OF TREATMENT Next Appt Details Provider Name:Benjamin loredo Jr, 09/15/2024 01:55:00 PM, [address], [address], [place], [address],
--- NOTE | 2024-08-19 17:06 | ED.GENADULT ---
HPI - General Adult General Chief complaint: General Medical Stated complaint: Esophageal Cancer Time Seen by Provider: 08/19/24 16:08 Source: patient and family Limitations: altered mental status History of Present Illness ED Provider: Kj HOROWITZ narrative: 63-year-old male with past medical history of end-stage esophageal cancer presenting for hospice evaluation. Patient has reportedly had a gradual decline over the past few weeks. He has also been experiencing multiple episodes of diarrhea after tube feeds. Family reports that his mental status has also declined and he has been experiencing diffuse weakness and fatigue. He suffered a fall few days ago that was witnessed by his . There was no LOC however it took him quite a bit of time get off the ground. Patient was sent in by his oncologist for hospice evaluation Related Data Home Medications ?Medication ?Instructions ?Recorded ?Confirmed lancets 33 gauge #100 ea 08/15/20 08/15/24 pen needle, diabetic 31 gauge x #1,200 ea 08/15/20 08/15/2411/04 levetiracetam 100 mg/mL oral 250 mg feeding tube BID 08/05/24 08/15/24 solution ferrous sulfate 325 mg (65 mg 325 mg PO BID 08/19/24 iron) tablet furosemide 40 mg tablet mg DAILY 08/19/24 lisinopril 2.5 mg tablet 2.5 mg PO DAILY 08/19/24 nadolol 20 mg tablet 20 mg PO DAILY 08/19/24 ondansetron 8 mg disintegrating 8 mg PO Q8H 08/19/24 tablet pantoprazole 40 mg tablet,delayed 40 mg PO DAILY 08/19/24 release spironolactone 100 mg tablet mg DAILY 08/19/24 Previous Rx's ?Medication ?Instructions ?Recorded atorvastatin 10 mg tablet 10 mg feeding tube BEDTIME #90 tabs 06/24/24 baclofen 10 mg tablet 10 mg feeding tube DAILY PRN 06/24/24 muscle spasm 90 days #90 tabs cholecalciferol (vitamin D3) 25 25 mcg feeding tube DAILY #90 tabs 06/24/24 mcg (1,000 unit) tablet (Vitamin D3) metformin 500 mg tablet 500 mg feeding tube BIDWMEAL #180 06/24/24 tabs repaglinide 0.5 mg tablet 0.5 mg feeding tube TID #270 tabs 06/24/24 empagliflozin 25 mg tablet 25 mg feeding tube DAILY #90 tabs 07/27/24 (Jardiance) cefuroxime axetil 500 mg tablet 500 mg feeding tube Q12H #10 tabs 08/12/24 morphine 10 mg/5 mL oral solution 5 mg (2.5 mL) PO Q4H PRN Severe 08/17/24 Pain (Scale Score 7-10) #100 mL oxycodone 5 mg/5 mL oral solution 10 mg (10 mL) PO Q6H PRN 08/18/24 Breakthrough Pain, Severe #400 mL Allergies Allergy/AdvReac Type Severity Reaction Status Date / Time No Known Allergies Allergy Verified 08/19/24 14:22 Review of Systems Review of Systems: Yes all other systems are reviewed and are negative [facility] Past Medical History Medical History Wears dentures History of blood transfusion History of GI bleed (~2017) Type 2 diabetes mellitus with hyperglycemia Type 2 diabetes mellitus with diabetic polyneuropathy Hyperlipidemia LDL goal <70 Adenocarcinoma of lower esophagus Hx of splenomegaly Male circumcision Constipation Thrombocytopenia Elevated ferritin Esophageal varices Seizure disorder Alcoholic cirrhosis Hepatitis C Anemia Stroke Hepatic cirrhosis Diabetes Esophagus, carcinoma Surgical History S/P percutaneous endoscopic gastrostomy (PEG) tube placement History of surgery on lower extremity (~2003) S/P transjugular intrahepatic portosystemic shunt (~2017) Hx of circumcision Hx of colonoscopy (08/2021) Hx of endoscopy (08/2021) Family History Family History Father No problems noted. Mother Diabetes mellitus Social History Social History Household Members: Spouse Household Members Other:: Spouse: Antoni Housing: House Are you a primary skin care instructor to a significant other at home: No Do you presently have visiting nurse or other home services: Yes Alcohol intake: never Patient Tobacco Use Status: Former Tobacco user Tobacco use type: Cigarette Years Smoked: 10 Smoked in Last 30 Days: No e-Cigarette/Vaping Use: Never Used Second Hand Smoke Exposure: No Advance Directives: Yes Advance Directives on File: Yes Advance Directives Date on File: 01/28/21 service: No Current occupational status: disabled Cognitive needs: No Hearing needs: No Vision needs: No Physical Exam ED Vital Signs: Vital Signs - 24 hr 08/19/24 14:20 08/19/24 16:00 08/19/24 17:17 Temperature 98.4 F Pulse Rate 120 H 106 H Respiratory Rate 18 10 L 10 L Blood Pressure 80/52 L Pulse Oximetry 95 Oxygen Delivery Method Room Air 08/19/24 17:18 08/19/24 18:00 Temperature Pulse Rate 102 H 97 Respiratory Rate 10 L 8 L Blood Pressure 101/52 L Pulse Oximetry Oxygen Delivery Method BMI result Body Mass Index 24.9 Ill-appearing male A&Ox1 Head normocephalic and atraumatic No midline tenderness to palpation Lungs clear to auscultation bilaterally Normal S1-S2 regular rate rhythm Abdomen is soft nontender nondistended with well-appearing peg tube Right knee anterior abrasion; distal pulses intact to bilateral lower extremities Medications Administered Discontinued Medications Generic Name Dose Route Start Last Admin Trade Name Freq PRN Reason Stop Dose Admin Sodium Chloride 500 mls @ 500 mls/hr 08/19/24 17:15 08/19/24 18:16 Ns IV 08/19/24 18:14 Infused .Q1H KINGA Infusion Sodium Chloride 500 mls @ 500 mls/hr 08/19/24 18:30 08/19/24 19:31 Ns IV 08/19/24 19:29 Infused .Q1H KINGA Infusion Morphine Sulfate 1 mg 08/19/24 17:01 08/19/24 17:17 Morphine Sulfate 2 Mg/Ml Cartridge IVPUSH 08/19/24 17:02 1 mg ONCE ONE Administration Protocol Medical Decision Making Medical Decision Making [facility] Narrative: 63-year-old male presenting for ams and weakness -I am concerned for: failure to thrive, head bleed, electrolyte/metabolic disturbance, -labs and imaging studies ordered I spoke with Dr. Crawford who recommends hospice placement due to pt's progressive decline. Tx options have been exhausted Lab and imaging interpretation: -leukocytosis, stable H&H, acute renal failure, elevated lactic acid, elevated phosphorus and magnesium -I reviewed patient's CT imaging did not appreciate head bleed or neck fracture; radiology impression is negative for acute findings on both scans -I reviewed patient's chest x-ray and did not appreciate large consolidation; the radiology impression is negative for acute pulmonary disease Case management evaluated patient and recommended [facility] for hospice evaluation in the morning Patient's family members are agreeable to this plan I spoke with overnight hospitalist who accepted the patient for admission Lab Data 08/19/24 17:44 08/19/24 17:44 Labs: Lab Results 08/19/24 08/19/24 Range/Units 17:44 17:48 WBC 13.7 H (4.8-10.8) X10*3/uL RBC 4.12 L (4.60-5.80) X10*6/uL Hgb 12.1 L (14.0-18.0) g/dl Hct 35.4 L (42.0-52.0) % MCV 85.9 (80.0-98.0) fL MCH 29.4 (27.0-33.0) pg MCHC 34.2 (31.0-36.0) g/dl RDW 14.5 (11.0-16.0) % Plt Count 64 L D (160-400) X10*3/uL MPV 12.2 (9.4-12.4) fL Immature Gran % (Auto) 0.9 H (0.0-0.4) % Neut % (Auto) 86.2 H (45-73) % Lymph % (Auto) 5.2 L (20-40) % [place] % (Auto) 7.4 (2-11) % Eos % (Auto) 0.1 (0-4) % Baso % (Auto) 0.2 (0-2) % Lymph # (Auto) 0.7 L (1.2-4.9) X10*3/uL [place] # (Auto) 1.0 (0.1-1.2) X10*3/uL Eos # (Auto) 0.0 (0.0-0.4) X10*3/uL Baso # (Auto) 0.0 (0.0-0.2) X10*3/uL Abs Immat Gran (auto) 0.13 H (0.00-0.03) X10*3/uL Absolute Neuts (auto) 11.8 H (2.0-8.3) x10*3/uL Absolute Nucleated RBC 0.000 (0.0-0.012) X10*3/uL Nucleated RBC % (auto) 0.0 (0.0-0.2) /100WBC PT 15.8 H D (10.9-12.4) SEC INR 1.4 H (0.9-1.1) APTT 25.8 L (26.0-36.8) SEC Sodium 138 (135-145) mmol/L Potassium 3.6 (3.3-5.1) mmol/L Chloride 104 (96-108) mmol/L Carbon Dioxide 12 L (22-29) mmol/L Anion Gap 26 H (12-20) BUN 93 H (9-16) mg/dL Creatinine 6.18 H* (0.5-1.4) mg/dL Estim Creat Clear Calc 11.4 Estimated GFR 9 Random Glucose 371 H* (60-115) mg/dL Lactic Acid 3.6 H* (0.5-2.0) mmol/L Calcium 7.7 L D (8.4-10.2) mg/dL Phosphorus 9.3 H (2.7-4.5) mg/dL Magnesium 3.1 H (1.6-2.6) mg/dL Ammonia 157 H (13-55) umol/L B-Natriuretic Peptide 95 (<100) pg/mL Discharge Plan Discharge Clinical Impression: Adult failure to thrive, Acute renal failure Patient Disposition: Admitted As Inpatient Print Language: Citizen Of [place]
[2024-08-19] MEDS: 0.9 % Sodium Chloride 500 ML IV ×2 (17:16→18:31)
[2024-08-19 17:17] VITALS: RESP 10
[2024-08-19] MEDS: Morphine Sulfate 2 MG/ML CARTRIDGE 1 MG IVPUSH (17:17)
[2024-08-19 17:18] VITALS: BP 101/52; PULSE 102; RESP 10
[2024-08-19 17:59] LABS: MANUAL DIFF FLAG NO
[2024-08-19 18:00] VITALS: PULSE 97; RESP 8
[2024-08-19 18:05] LABS: Ammonia 157 umol/L (13-55)
[2024-08-19 18:08] LABS: INTERNATIONAL NORM RATIO 1.4 (0.9-1.1); Prothrombin Time 15.8 SEC (10.9-12.4)
[2024-08-19 18:11] LABS: Partial Thromboplastin Time 25.8 SEC (26.0-36.8)
[2024-08-19 18:16] LABS: Lactic Acid 3.6 mmol/L (0.5-2.0)
[2024-08-19 18:19] LABS: B Type Natriuretic Peptide 95 pg/mL (<100)
[2024-08-19 18:23] LABS: Basophils Percent Auto 0.2 % (0-2); Eosinophils Percent Auto 0.1 % (0-4); Hematocrit 35.4 % (42.0-52.0); Hemoglobin 12.1 g/dl (14.0-18.0); Imm Gran Abs Auto 0.13 X10*3/uL (0.00-0.03); Imm Gran Pct Auto 0.9 % (0.0-0.4); Lymphocytes Absolute Auto 0.7 X10*3/uL (1.2-4.9); Lymphocytes Percent Auto 5.2 % (20-40); Mean Corpuscular HGB Conc 34.2 g/dl (31.0-36.0); Mean Corpuscular Hemoglobin 29.4 pg (27.0-33.0); Mean Corpuscular Volume 85.9 fL (80.0-98.0); Mean Platelet Volume 12.2 fL (9.4-12.4); Monocytes Percent Auto 7.4 % (2-11); Neutrophils Absolute Auto 11.8 x10*3/uL (2.0-8.3); Neutrophils Percent Auto 86.2 % (45-73); Platelet Count 64 X10*3/uL (160-400); Red Blood Count 4.12 X10*6/uL (4.60-5.80); Red Cell Distribution Width 14.5 % (11.0-16.0); White Blood Count 13.7 X10*3/uL (4.8-10.8)
[2024-08-19 18:25] LABS: Anion Gap 26 (12-20); Blood Urea Nitrogen 93 mg/dL (9-16); Calcium 7.7 mg/dL (8.4-10.2); Carbon Dioxide 12 mmol/L (22-29); Chloride 104 mmol/L (96-108); Creatinine Clr Calc Pharmacy 11.4; Estimated Glomerular Filt Rate 9; Glucose Random 371 mg/dL (60-115); Magnesium 3.1 mg/dL (1.6-2.6); Phosphorus 9.3 mg/dL (2.7-4.5); Potassium 3.6 mmol/L (3.3-5.1); Sodium 138 mmol/L (135-145)
[2024-08-19 19:56] LABS: Reflex Lactate? Lactic Acid Added
--- NOTE | 2024-08-19 20:09 | PHA.MEDREC ---
Addendum entered by Luis Fernando Kwong 08/19/24 20:15: reviewed Original Note: Pharmacy Consult ? Medication Reconciliation Pharmacy has completed the medication reconciliation. Spoke to patients at bedside to confirm med list. states patient no longer takes Cefuroxime 500 mg, Ferrous sulfate 325 mg, Nadolol 20 mg , last fill date 07/25/43, Ondansertron 8 mg, and pantoprazole 40 mg. patient was unsure about Spironolactone 100 mg tablets, last filled 08/17/24.
--- NOTE | 2024-08-19 20:15 | P.HPHOSP_ITS ---
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 Patient's creatinine was found to be elevated outpatient and he was sent to the ER. Patient has had a decline over the last few weeks. Unable to tolerate bolus tube feeding. He has been having multiple episodes of nonbloody diarrhea after tube feeding. Patient's family also report lethargy and decline in mental status. He was recently admitted and discharged on 08/12. Unable to obtain history from the patient due to decreased mentation. Unable to obtain review of systems. History obtained with the help of family at bedside. In the emergency department, creatinine found to be 6.18 with anion gap metabolic acidosis. Lactic acid found to be 3.6 Review of Systems 2 Review of Systems: Yes Unobtainable due to mental status PMFSH Medical History Wears dentures History of blood transfusion History of GI bleed (~2017) Type 2 diabetes mellitus with hyperglycemia Type 2 diabetes mellitus with diabetic polyneuropathy Hyperlipidemia LDL goal <70 Adenocarcinoma of lower esophagus Hx of splenomegaly Male circumcision Constipation Thrombocytopenia Elevated ferritin Esophageal varices Seizure disorder Alcoholic cirrhosis Hepatitis C Anemia Stroke Hepatic cirrhosis Diabetes Esophagus, carcinoma Family History Father No problems noted. Mother Diabetes mellitus Surgical History S/P percutaneous endoscopic gastrostomy (PEG) tube placement History of surgery on lower extremity (~2003) S/P transjugular intrahepatic portosystemic shunt (~2017) Hx of circumcision Hx of colonoscopy (08/2021) Hx of endoscopy (08/2021) Social History Household Members: Spouse Household Members Other:: Spouse: Antoni Housing: House Are you a primary director critical care to a significant other at home: No Do you presently have visiting nurse or other home services: Yes Alcohol intake: never Patient Tobacco Use Status: Former Tobacco user Tobacco use type: Cigarette Years Smoked: 10 Smoked in Last 30 Days: No e-Cigarette/Vaping Use: Never Used Second Hand Smoke Exposure: No Advance Directives: Yes Advance Directives on File: Yes Advance Directives Date on File: 01/28/21 service: No Current occupational status: disabled Cognitive needs: No Hearing needs: No Vision needs: No Meds Allergies Allergy/AdvReac Type Severity Reaction Status Date / Time No Known Allergies Allergy Verified 08/19/24 14:22 Active Medications: Current Medications Lactated Ringer's (Lr) 1,000 mls @ 999 mls/hr IV .Q1H1M KINGA Stop: 08/19/24 21:15 Morphine Sulfate (Morphine Sulfate 2 Mg/Ml Cartridge) 1 mg IVPUSH ONCE PRN; Protocol PRN Reason: Pain, Moderate(Pain Scale 4-6) Home Medications ?Medication ?Instructions ?Recorded ?Confirmed ?Last Taken ?Type lancets 33 gauge #100 ea 08/15/20 08/15/24 Unknown History pen needle, diabetic 31 gauge x #1,200 ea 08/15/20 08/15/24 Unknown History 5/16 levetiracetam 100 mg/mL oral 250 mg feeding tube BID 08/05/24 08/19/24 08/18/24 History solution ferrous sulfate 325 mg (65 mg 325 mg feeding tube BID 08/19/24 08/19/24 08/18/24 History iron) tablet furosemide 40 mg tablet 40 mg feeding tube DAILY 08/19/24 08/19/24 08/18/24 History lisinopril 2.5 mg tablet 2.5 mg feeding tube DAILY 08/19/24 08/19/24 08/18/24 History nadolol 20 mg tablet 20 mg feeding tube DAILY 08/19/24 Unknown History spironolactone 100 mg tablet 100 mg feeding tube DAILY 08/19/24 Unknown History Physical Exam 2 Vital Signs and Narrative: Vital Signs: Last Vital Signs Temp 98.4 F 08/19/24 14:20 Pulse 97 08/19/24 18:00 Resp 8 L 08/19/24 18:00 BP 101/52 L 08/19/24 17:18 Pulse Ox 95 08/19/24 14:20 O2 Del Method Room Air 08/19/24 14:20 BMI result Body Mass Index 24.9 Middle-aged male lying in bed in no distress Neck supple, no JVD Regular rate and rhythm, S1-S2 heard Regular breath sounds bilaterally, no wheezing or crackles appreciated Abdomen without tenderness, G-tube in place Patient only awakens to verbal stimulus and nods in response to questions Psych: Normal mood Results Labs 08/19/24 17:44 08/19/24 17:44 Labs: Laboratory Results - last 24 hr 08/19/24 08/19/24 17:44 17:48 MCV 85.9 MCH 29.4 MCHC 34.2 RDW 14.5 Plt Count 64 L D MPV 12.2 Immature Gran % (Auto) 0.9 H Neut % (Auto) 86.2 H Lymph % (Auto) 5.2 L [place] % (Auto) 7.4 Eos % (Auto) 0.1 Baso % (Auto) 0.2 Lymph # (Auto) 0.7 L [place] # (Auto) 1.0 Eos # (Auto) 0.0 Baso # (Auto) 0.0 Abs Immat Gran (auto) 0.13 H Absolute Neuts (auto) 11.8 H Absolute Nucleated RBC 0.000 Nucleated RBC % (auto) 0.0 PT 15.8 H D INR 1.4 H APTT 25.8 L Anion Gap 26 H Estim Creat Clear Calc 11.4 Estimated GFR 9 Random Glucose 371 H* Lactic Acid 3.6 H* Calcium 7.7 L D Phosphorus 9.3 H Magnesium 3.1 H Ammonia 157 H B-Natriuretic Peptide 95 Imaging Radiologist's Impressions: Impressions Chest X-Ray 08/19/24 16:35 IMPRESSION: No active pulmonary disease. 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 Assessment #. Acute renal failure with anion gap metabolic acidosis #. Acute lactic acidosis #. Adenocarcinoma of lower esophagus status post G-tube, and Keytruda #. HCV cirrhosis status post tips #. Cao-vemtudy-iqbzykvwv diabetes mellitus with hyperglycemia #. Seizure disorder Plan -talked about the patient's condition with patient's , patient's sister and patient's niece at bedside. They understand patient's critical condition with acute renal failure in the background of underlying adenocarcinoma of liver esophagus and HCV cirrhosis. He is on bolus tube feedings which he is not able to tolerate. Patient was recently hospitalized and discharged on 08/12. Patient's does not want the patient to suffer anymore and wants him comfortable. Wants to focus on quality of life rather than quantity. 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 Hospice eval in a.m. as patient's is unable to take care of him at home. Will stop all medications and initiate IV morphine p.r.n. for analgesia and IV Ativan p.r.n. for anxiety/agitation as comfort measures. No more blood draws or blood pressure checks. Patient's family at bedside is in agreement. Quality Stroke Does the patient have a stroke diagnosis?: No VTE Prior VTE?: No VTE Risk Level:: Medical - moderate - high VTE Device Contraindication: Treatment Not Indicated VTE Drug Contraindication: Treatment Not Indicated
[2024-08-19] MEDS: Lactated Ringers 1,000 ML 999 ML IV (20:19)
[2024-08-19] MEDS: Sodium Bicarbonate 8.4% 50 MEQ/50 ML SYRINGE IVPUSH (20:32)
--- NOTE | 2024-08-19 20:40 | PC.NURSE ---
Pt medicated per aug Pt open his eyes to verbal stimuli Pt jasen remains at bedside Plan of care ongoing.
--- NOTE | 2024-08-19 20:47 | PC.NURSE ---
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 Per pt family, pt has been declining over the last few weeks, with anincrease in weakness and falls. In addition pt has been unable to tolerate prescribed tube feedings, with multiple episodes of diarrhea. Family reports lethargy and decline in mental status. Patients condition was reviewed with pt family at bedside, and pt code status was changed to comfort measures only . Pt to have hospice evaluation in the AM as pt is unable to manage pt condition at home. 22g IV in right wrist placed in infusion center [facility] to ED. Blood draws and B/P's have been discontinued at this time. Pt was medicated with 1mg MorphineSulfate for 7/10 mid upper abdominal pain. pt rec 1L NS, Sodium bicarb, as well as 1L LR. Pt calm and cooperative with care.
--- NOTE | 2024-08-19 21:10 | PC.NURSE ---
Ant Boogie pt no longer needs vitals at this time Plan of care ongoing.
--- NOTE | 2024-08-19 21:23 | MHC.CM.ED ---
Addendum entered by Leol Middleton 08/19/24 21:49: for [facility]. CM will contact [facility] and Hospice via [facility]. Family with patient. Appears comfortable. Resting with eyes closed. Given contact card. Nurse to institute [facility] bundle. Addendum entered by Lelo Middleton 08/19/24 21:34: Hospitalist in speaking with family. Will place in observations Addendum entered by Lelo Middleton 08/19/24 21:32: CM spent some time with family, providing emotional supports and again reviewing plan of care. Pt is more comfortable after pain medication. Pt opens eyes to voice. Is not communicating. Family providing supports. Original Note: CM met with family at the request of Dr. Underwood. Pt lives with . Has end stage adenocarcinoma of the lower esophagus. Pt is in renal failure. Family initially wanted treatments such as antibiotics if needed, but after speaking with Dr. Underwood, they are in agreement for [facility]ER and hospice referral. Pt is active with [facility]. They are aware of patient being in ED. Will evaluated for [facility] hospice in the morning. Patient with pain, treated with IV morphine. CM reviewed with patients and niece hospice and options for treatment, as his cannot meet his care needs at home. They are hopeful for [facility] hospice. Otherwise, they are agreeable to hospice in a facility. Attempted to speak with family about [facility], however they are too overwhelmed at this time. HCP and MOLST are on file. Pt is a DNR/DNI. Comfort cart requested. ED provider will speak with hospitalist regarding admission for [facility].
--- NOTE | 2024-08-19 21:50 | PC.NURSE ---
pt resting quietly on exam room stretcher, eyes closed, respirations even and unlabored at this time, no facial grimace or obvious signs of distress. Blood draws, B/P's and vitals dc'd.
[2024-08-20] MEDS: 0.9 % Sodium Chloride Flush 3 ML SYRINGE IVFLUSH ×4 (00:01→19:35)
[2024-08-20 04:00] VITALS: RESP 15
[2024-08-20 07:42] LABS: Beta-Hydroxybutyrate 1.79 mmol/L (0.02-0.27)
--- NOTE | 2024-08-20 08:09 | P.PNIM_ITS ---
Subjective Subjective Date of Service: 08/20/24 Interval History: comfort measures appear comfortable Physical Exam 2 Vital Signs: Vital Signs: Last Vital Signs Temp 98.4 F 08/19/24 14:20 Pulse 97 08/19/24 18:00 Resp 15 08/20/24 04:00 BP 101/52 L 08/19/24 17:18 Pulse Ox 95 08/19/24 14:20 O2 Del Method Room Air 08/19/24 14:20 BMI result Body Mass Index 24.9 Const: Other: looks comfortable Objective Data Active Medications Acetaminophen (Acetaminophen 325 Mg Tablet) 650 mg PO Q6H PRN PRN Reason: Pain, Mild 1-3,fever,headache Acetaminophen (Acetaminophen Supp 650 Mg Supp.Rect) 650 mg VA Q6H PRN PRN Reason: Pain, Mild 1-3,fever,headache Calcium Carbonate (Calcium Carbonate 750 Mg Tab.Chew) 750 mg PO Q4H PRN PRN Reason: Heartburn Lorazepam (Lorazepam 2 Mg/Ml Vial) 1 mg IVPUSH Q2H PRN PRN Reason: anxiety/restlessness Magnesium Hydroxide (Milk Of Magnesia 30 Ml Oral.Susp) 30 ml PO DAILY PRN PRN Reason: Constipation Melatonin (Melatonin 3 Mg Tablet) 6 mg PO BEDTIME PRN PRN Reason: Insomnia Morphine Sulfate (Morphine Sulfate 2 Mg/Ml Cartridge) 1 mg IVPUSH ONCE PRN; Protocol PRN Reason: Pain, Moderate(Pain Scale 4-6) Morphine Sulfate (Morphine Sulfate 2 Mg/Ml Cartridge) 2 mg IVPUSH Q1H PRN; Protocol PRN Reason: Pain, Severe (Pain Scale 7-10) Ondansetron HCl (Ondansetron Hcl 4 Mg/2 Ml Vial) 4 mg IVPUSH Q8H PRN PRN Reason: Nausea and Vomiting Ondansetron HCl (Ondansetron Odt 4 Mg Tab.Rapdis) 4 mg TRANSLINGU Q8H PRN PRN Reason: Nausea and Vomiting Sodium Chloride (0.9 % Sodium Chloride Flush 3 Ml Syringe) [facility] Last Admin: 08/20/24 00:01 Dose: 3 ml Documented By: LARS Labs 08/19/24 17:44 08/19/24 17:44 Labs: Laboratory Results - last 24 hr 08/19/24 08/19/24 17:44 17:48 MCV 85.9 MCH 29.4 MCHC 34.2 RDW 14.5 Plt Count 64 L D MPV 12.2 Immature Gran % (Auto) 0.9 H Neut % (Auto) 86.2 H Lymph % (Auto) 5.2 L [place] % (Auto) 7.4 Eos % (Auto) 0.1 Baso % (Auto) 0.2 Lymph # (Auto) 0.7 L [place] # (Auto) 1.0 Eos # (Auto) 0.0 Baso # (Auto) 0.0 Abs Immat Gran (auto) 0.13 H Absolute Neuts (auto) 11.8 H Absolute Nucleated RBC 0.000 Nucleated RBC % (auto) 0.0 PT 15.8 H D INR 1.4 H APTT 25.8 L Anion Gap 26 H Estim Creat Clear Calc 11.4 Estimated GFR 9 Random Glucose 371 H* Lactic Acid 3.6 H* Calcium 7.7 L D Phosphorus 9.3 H Magnesium 3.1 H Ammonia 157 H B-Natriuretic Peptide 95 Beta-Hydroxybutyrate 1.79 H Assessment and Plan (1) Adenocarcinoma: Status: Acute Plan 63-year-old male with a significant medical history of adenocarcinoma of the lower esophagus (status post G-tube, on Keytruda), [id number] diabetes mellitus, HCV cirrhosis (status post TIPS), and seizure disorder. He was referred to the emergency department by his oncologist for hospice evaluation and transition to comfort measures only ([employer]). Assessment: * Acute renal failure with anion gap metabolic acidosis * Acute lactic acidosis * Adenocarcinoma of the lower esophagus (status post G-tube, on Keytruda) * Rmr-uebyncm-pralkvbwk diabetes mellitus with hyperglycemia * Seizure disorder Plan: * Continue comfort measures in accordance with the family's wishes * Provide symptom management with morphine and Ativan for comfort * Arrange a hospice consultation * Coordinate discharge planning with case management Quality Stroke Does the patient have a stroke diagnosis?: No VTE Prior VTE?: No VTE Risk Level:: Medical - moderate - high VTE Device Contraindication: Treatment Not Indicated VTE Drug Contraindication: Treatment Not Indicated
[2024-08-20] MEDS: LORazepam 2 MG/ML VIAL 1 MG IVPUSH ×4 (09:47→18:34)
[2024-08-20] MEDS: Morphine Sulfate 2 MG/ML CARTRIDGE IVPUSH ×7 (09:47→22:41)
--- NOTE | 2024-08-20 13:25 | MHC.CM.PN ---
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
[2024-08-21] MEDS: Morphine Sulfate 2 MG/ML CARTRIDGE IVPUSH ×9 (02:11→15:07)
[2024-08-21] MEDS: LORazepam 2 MG/ML VIAL 1 MG IVPUSH ×5 (04:58→15:07)
[2024-08-21] MEDS: Scopolamine 1.5 MG PATCH.TD.3 EAR-BEHIND (08:52)
[2024-08-21] MEDS: 0.9 % Sodium Chloride Flush 3 ML SYRINGE IVFLUSH ×2 (08:52→15:06)
[2024-08-21] MEDS: Atropine Sulfate 1 % Ophth Sol 2 ML BOTTLE 1 DROP SUBLINGUAL ×2 (09:14→13:43)
--- NOTE | 2024-08-21 10:47 | P.PNIM_ITS ---
Subjective Subjective Date of Service: 08/21/24 Interval History: comfortable but very gurgly Physical Exam 2 Vital Signs: Vital Signs: Last Vital Signs Temp 98.4 F 08/19/24 14:20 Pulse 97 08/19/24 18:00 Resp 15 08/20/24 04:00 BP 101/52 L 08/19/24 17:18 Pulse Ox 95 08/19/24 14:20 O2 Del Method Room Air 08/19/24 14:20 BMI result Body Mass Index 24.9 Const: Other: No distress, gurgly Objective Data Active Medications Acetaminophen (Acetaminophen Supp 650 Mg Supp.Rect) 650 mg DE Q6H PRN PRN Reason: Pain, Mild 1-3,fever,headache Atropine Sulfate (Atropine Sulfate 1 % Ophth Maria Isabel 2 Ml Bottle) 1 drop SUBLINGUAL Q4H PRN PRN Reason: Secretions Last Admin: 08/21/24 09:14 Dose: 1 drop Documented By: MAMIE Lorazepam (Lorazepam 2 Mg/Ml Vial) 1 mg IVPUSH Q2H PRN PRN Reason: anxiety/restlessness Last Admin: 08/21/24 10:20 Dose: 1 mg Documented By: MAMIE Morphine Sulfate (Morphine Sulfate 2 Mg/Ml Cartridge) 2 mg IVPUSH Q1H PRN; Protocol PRN Reason: Pain, Severe (Pain Scale 7-10) Last Admin: 08/21/24 10:20 Dose: 2 mg Documented By: MAMIE Ondansetron HCl (Ondansetron Odt 4 Mg Tab.Rapdis) 4 mg TRANSLINGU Q8H PRN PRN Reason: Nausea and Vomiting Scopolamine (Scopolamine 1.5 Mg Patch.Td.3) 1.5 mg EAR-BEHIND Q72H [facility] Last Admin: 08/21/24 08:52 Dose: 1.5 mg Documented By: MAMIE Sodium Chloride (0.9 % Sodium Chloride Flush 3 Ml Syringe) 3 ml IVFLUSH QSHIFT [facility] Last Admin: 08/21/24 08:52 Dose: 3 ml Documented By: MAMIE Labs 08/19/24 17:44 08/19/24 17:44 Assessment and Plan (1) Adenocarcinoma: Status: Acute Plan 63-year-old male with a significant medical history of adenocarcinoma of the lower esophagus (status post G-tube, on Keytruda), [id number]-syddzkzil diabetes mellitus, HCV cirrhosis (status post TIPS), and seizure disorder. He was referred to the emergency department by his oncologist for hospice evaluation and transition to comfort measures only ([employer]). Assessment: * Acute renal failure with anion gap metabolic acidosis * Acute lactic acidosis * Adenocarcinoma of the lower esophagus (status post G-tube, on Keytruda) * Ohc-tyjqcrr-hxsqfyqcx diabetes mellitus with hyperglycemia * Seizure disorder Plan: * Continue comfort measures in accordance with the family's wishes * Provide symptom management with morphine and Ativan for comfort * Arrange a hospice consultation * Coordinate discharge planning with case management * Scoplamine and atropine for secretions Quality Stroke Does the patient have a stroke diagnosis?: No VTE Prior VTE?: No VTE Risk Level:: Medical - moderate - high VTE Device Contraindication: Treatment Not Indicated VTE Drug Contraindication: Treatment Not Indicated
--- NOTE | 2024-08-21 16:06 | PM.EVENT ---
Event Note Date of Service: 08/21/24 Event Note: called to evaluate patient, found to be apneic, astystole, no reflexes, time of 1600 Time Spent With Patient Time: Total time managing care of this patient today ____ minutes.
--- NOTE | 2024-08-21 17:31 | PC.NURSE ---
Pt passed 1600 08/21/24. present. MD notified, hospice notified, [facility] notified. Pt's body was prepared and transported to [facility]. Home ([facility] in [place]) will be providing services.
--- NOTE | 2024-08-21 17:53 | P.DN_ITS ---
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 Patient's creatinine was found to be elevated outpatient and he was sent to the ER. Patient has had a decline over the last few weeks. Unable to tolerate bolus tube feeding. He has been having multiple episodes of nonbloody diarrhea after tube feeding. Patient's family also report lethargy and decline in mental status. He was recently admitted and discharged on 08/12. Unable to obtain history from the patient due to decreased mentation. Unable to obtain review of systems. History obtained with the help of family at bedside. In the emergency department, creatinine found to be 6.18 with anion gap metabolic acidosis. Lactic acid found to be 3.6 Hospital course 63-year-old male with a significant medical history of adenocarcinoma of the lower esophagus (status post G-tube, on Keytruda), ftb-kwezkim-klwpsoguz diabetes mellitus, HCV cirrhosis (status post TIPS), and seizure disorder. He was referred to the emergency department by his oncologist for hospice evaluation and transition to comfort measures only ([employer]) due to poor prognosis. He on 08/21/24 at 1600 Cause of : Adenocarcinoma of the lower esophagus Contributing diagnoses Acute renal failure with anion gap metabolic acidosis Acute lactic acidosis Rus-gmmgsnd-wsxosoqxs diabetes mellitus with hyperglycemia Seizure disorder Moderate protein caloy malnutritiona Additional Data Attending physician: Anup Roldan MD
== END 2024-08-21 17:14 | disposition expired ==
LOC: HO.ED 19:39 → HO.EDOVER 20:20 → HO.S3 23:39
PROVIDERS: Admitting Provider Student in an Organized Health Care Education/Training Program; Emergency Provider Student in an Organized Health Care Education/Training Program; PCP Nurse Practitioner Family; Visit Provider Internal Medicine
DX: C15.9 Malignant neoplasm of esophagus, unspecified (principal); N17.9 Acute kidney failure, unspecified; E87.20 Acidosis, unspecified; G40.909 Epilepsy, unspecified, not intractable, without status epilepticus; E44.0 Moderate protein-calorie malnutrition; Z68.24 Body mass index [BMI] 24.0-24.9, adult; R53.1 Weakness; Z51.5 Encounter for palliative care; R05.9 Cough, unspecified; R19.7 Diarrhea, unspecified; R62.7 Adult failure to thrive; E11.65 Type 2 diabetes mellitus with hyperglycemia; Z79.899 Other long term (current) drug therapy
CPT/HCPCS: 36415; 70450; 71045; 72125; 80048; 82010; 82140; 83605; 83735; 83880; 84100; 85025; 85610; 85730; 93005; 96361; 96374; 96375; 96376; 99221; 99285; J2060; J2270; J7120

== ENCOUNTER → 2024-08-19 16:31 | Outpatient (BNV) | payer OTHER, SELFPAY | PROVIDERS: Admitting Provider Student in an Organized Health Care Education/Training Program; Emergency Provider Student in an Organized Health Care Education/Training Program; PCP Nurse Practitioner Family; Visit Provider Internal Medicine Cardiovascular Disease | DX: R94.31 Abnormal electrocardiogram [ECG] [EKG] (principal); R53.1 Weakness | CPT/HCPCS: 93010 ==

== ENCOUNTER → 2024-08-19 16:33 | Outpatient (BNV) | payer OTHER, SELFPAY | PROVIDERS: Emergency Provider Student in an Organized Health Care Education/Training Program; PCP Nurse Practitioner Family; Visit Provider Radiology Diagnostic Radiology | DX: C15.9 Malignant neoplasm of esophagus, unspecified (principal); W19.XXXA Unspecified fall, initial encounter; R07.9 Chest pain, unspecified | CPT/HCPCS: 70450; 71045; 72125 ==

== ENCOUNTER → 2024-08-19 20:11 | Outpatient (BNV) | payer OTHER, SELFPAY | PROVIDERS: Admitting Provider Student in an Organized Health Care Education/Training Program; Emergency Provider Student in an Organized Health Care Education/Training Program; PCP Nurse Practitioner Family; Visit Provider Student in an Organized Health Care Education/Training Program | DX: C15.9 Malignant neoplasm of esophagus, unspecified (principal); N17.9 Acute kidney failure, unspecified; E87.29 Other acidosis; K74.69 Other cirrhosis of liver | CPT/HCPCS: 99223; 99232; 99238; 99499 ==